=== PATIENT | female | born 1980 | race African-American/Black ===

== ENCOUNTER 2016-04-18 10:19 | Observation (INO) | payer MEDICARE, OTHER ==
[~2016-04-18] VITALS: Ht 165.1 cm; Wt 61.5 kg
[~2016-04-18 10:19] MED LIST: ASPI1TAB69 PO; DILA4TAB2 PO; FOLI1TAB4 PO; HYDR500C2 PO; [UNRECOGNIZED DRUG - CODE] PO
[2016-04-18 10:36] VITALS: BP 134/88; PULSE 92; RESP 16; TEMP 98.1; O2SAT 97
[2016-04-18] MEDS ORDERED: SODIUM CHLOR 0.9% 1000 ML INJ 1,000 ML IV ONE (11:28)
[2016-04-18] MEDS ORDERED: HYDROmorphone HCL PF 1 MG/ML VIAL IVS ONE (11:30)
[2016-04-18] MEDS ORDERED: SODIUM CHLORIDE 0.9% FLUSH 5 ML FLUSH IVF PRN ×2 (11:30→14:30)
[2016-04-18 12:05] LABS: HEMATOCRIT 21.3 % (35.0-46.0); MEAN CELL VOLUME 96.5 FL (80.0-100.0); MEAN CORPUSCULAR HEMOGLOBIN 33.6 PG (27.0-34.0); MEAN CORPUSCULAR HGB CONC 34.8 % (32.0-36.0); PLATELET COUNT 409 TH/MM3 (150-450); RED CELL DISTRIBUTION WIDTH 23.7 % (11.6-17.2); WHITE BLOOD COUNT 8.4 TH/MM3 (4.0-11.0)
[2016-04-18 12:12] LABS: HEMO FLAGS AUTO DIFF
[2016-04-18 12:15] LABS: CHLORIDE 109 MEQ/L (98-107); POTASSIUM 4.2 MEQ/L (3.5-5.1); SODIUM (NA) 144 MEQ/L (136-145)
[2016-04-18] MEDS ORDERED: diphenhydrAMINE HCL 50 MG/ML VIAL IV PUSH ONE (12:15)
[2016-04-18] MEDS ORDERED: ONDANSETRON HCL 4 MG/2 ML VIAL IV PUSH ONE (12:15)
--- NOTE | 2016-04-18 12:15 | RADHPO ---
EXAM DATE/TIME: 04/18/2016 11:36 [place] COMPARISON: CHEST SINGLE AP, March 01, 2016, 22:05. INDICATIONS : Sickle cell crisis, short of breath, chest pain, cough MEDICAL HISTORY : Sickle Cell disease. SURGICAL HISTORY : spinal ENCOUNTER: Initial ACUITY: 1 day PAIN SCORE: 9/10 LOCATION: Bilateral chest FINDINGS: Portable AP view of the chest demonstrates a normal-sized cardiac silhouette. Right chest wall Infuse -a-Port is present. Right side thoracic spine hardware is present and stable. No effusion, consolida tion, or pneumothorax is seen. Bones demonstrate no acute finding. Right ribs have a stable appearanc e. Left proximal humerus is unchanged. CONCLUSION: Stable chest x-ray. No acute cardiopulmonary abnormality is identified. Dejon Landaverde MD on April 18, 2016 at 12:13 Board Certified Radiologist. This report was verified electronically.
[2016-04-18 12:19] LABS: ANION GAP 8 MEQ/L (5-15); BICARBONATE 27.1 MEQ/L (21.0-32.0)
[2016-04-18 12:20] LABS: BLOOD UREA NITROGEN 12 MG/DL (7-18)
[2016-04-18 12:22] LABS: ALT (GPT) 38 U/L (10-53); AST (GOT) 53 U/L (15-37)
[2016-04-18 12:23] LABS: GLOMERULAR FILTRATION RATE 78 ML/MIN (>89)
[2016-04-18 12:24] LABS: TOTAL BILIRUBIN ADULT 1.6 MG/DL (0.2-1.0)
[2016-04-18 12:25] LABS: ALKALINE PHOSPHATASE 156 U/L (45-117)
[2016-04-18 12:29] LABS: CORRECTED NUCLEATED RBC 5 /100 WBC (0-0); EOSINOPHILS 4 % (0-4); NEUTROPHIL # MANUAL DIFF 5.4 TH/MM3 (1.8-7.7); POLYS (SEG NEUTROPHILS) 67 % (16-70); WBC DIFF SAMPLE 100
[2016-04-18 12:30] LABS: OVALOCYTES 1+ (NORMAL); PLATELET ESTIMATE SMEAR NORMAL (NORMAL); PLATELET MORPHOLOGY NORMAL (NORMAL); SCAN/DIFF FINAL DIFF MANUAL; SICKLE CELLS 2+ (NORMAL); TARGET CELLS 2+ (NORMAL)
[2016-04-18 12:31] LABS: KERATOCYTES 1+ (NORMAL)
[2016-04-18 12:58] VITALS: BP 128/75; PULSE 84; RESP 15; O2SAT 97; O2SAT 98
[2016-04-18] MEDS ORDERED: HYDROmorphone HCL PF 1 MG/ML VIAL IV PUSH ONE (13:00)
[2016-04-18 13:08] LABS: RETIC % 6.7 % (0.4-3.0)
[2016-04-18 13:13] LABS: REVIEW FLAG FINAL
--- NOTE | 2016-04-18 13:40 | PD ---
HPI Chief Complaint: Sickle Cell Time Seen by Provider: 11:03 Travel History International Travel<30 days: No Contact w/Intl Traveler<30days: No Traveled to known affect area: No History of Present Illness HPI This is a 35-year-old female who presents to the emergency department with sickle cell disease who has had 3 days of increasing cough, congestion, and some difficulty breathing. She says today she started to develop severe pain all over her body consistent with her sickle cell disease. She denies any fevers or chills. She has had no vomiting or diarrhea. PFSH Past Medical History Hx Anticoagulant Therapy: Yes (asa 81mg) Anemia: Yes (SICKLE CELL) Arthritis: No Asthma: No Autoimmune Disease: No Blood Disorders: Yes (SICKLE CELL) Anxiety: No Depression: No Heart Rhythm Problems: No Cancer: No Cardiovascular Problems: Yes (htn not on meds) High Cholesterol: No Chemotherapy: No Chest Pain: No Congestive Heart Failure: No COPD: No Cerebrovascular Accident: No Diabetes: No Diminished Hearing: No Deep Vein Thrombosis: Yes (HX LEFT ARM ) Endocrine: No Gastrointestinal Disorders: No GERD: No Glaucoma: No Genitourinary: No Headaches: Yes Hepatitis: No Hiatal Hernia: No Heparin Induced Thrombocytopen: No Hypertension: Yes Immune Disorder: Yes (SICKLE CELL) Implanted Vascular Access Dvce: Yes (POWER INFUSAPORT) Kidney Stones: No Musculoskeletal: Yes (SCOLIOSIS) Neurologic: No Psychiatric: No Reproductive: No Respiratory: No Immunizations Current: Yes Migraines: Yes Pneumonia: Yes Radiation Therapy: No Renal Failure: No Seizures: No Sickle Cell Disease: Yes Sleep Apnea: No Thyroid Disease: No Ulcer: No PNEUMOCCOCAL Vaccine (Year): 2008 ?: Not LMP: 5 months Menopausal: No : 5 Para: 2 Miscarriage: 3 : 0 Ovarian Cysts: Yes Past Surgical History Abdominal Surgery: Yes (CHOLECYSTECTOMY) AICD: No Arteriovenous Shunt: No Body Medical Devices: CATIA IN UPPER BACK, INFUSAPORT RIGHT CHEST: 2014 Cardiac Surgery: No Cholecystectomy: Yes Ear Surgery: No Endocrine Surgery: No Eye Surgery: No Genitourinary Surgery: No Gynecologic Surgery: No Hysterectomy: No Insulin Pump: No Joint Replacement: Yes (R HIP REPLACEMENT 2011, L HIP 2014) Neurologic Surgery: No Oral Surgery: No Pacemaker: No Thoracic Surgery: No Other Surgery: Yes (INSERTION OF INFUSA PORTX 3) Social History Alcohol Use: No Tobacco Use: No Substance Use: No Allergies-Medications (Allergen,Severity, Reaction): Coded Allergies: Toradol (Verified Allergy, Severe, Itching, 04/18/16) Morphine (Verified Allergy, Mild, Swelling, 04/18/16) Methadone (Verified Adverse Reaction, Severe, DEPRESSION, 04/18/16) Motrin (Verified Adverse Reaction, Severe, Urinary Freq (Inc/Dec), 04/18/16 ) RENAL FAILURE *MDRO Multi-Drug Resistant Organism (Verified Adverse Reaction, Unknown, ) VRE urine 2013 VRE screens negative on 11/12/14 and 12/18/14. Cleared by Infection Control. Reported Meds & Prescriptions Reported Meds & Active Scripts Active Reported Dilaudid (Hydromorphone HCl) 4 Mg Tab 4 Mg PO Q4H PRN Hydroxyurea 500 Mg Cap 500 Mg PO TID Folate (Folic Acid) 1 Mg Tab 1 Mg PO DAILY Jadenu (Deferasirox) 90 Mg Tab 1 Tab PO DAILY@1600 Aspirin 81 Mg Tabdr 81 Mg PO DAILY Review of Systems Except as stated in HPI: all other systems reviewed are Neg Physical Exam Narrative GENERAL:Well appearing, no acute distress SKIN: Warm and dry. HEAD: Atraumatic. Normocephalic. EYES: Pupils equal and round. No injection or drainage. Scleral icterus. ENT: Moist mucous membranes NECK: Trachea midline. CARDIOVASCULAR: Regular rate and rhythm. No murmur appreciated. RESPIRATORY: Clear to auscultation. Breath sounds equal bilaterally. GASTROINTESTINAL: Abdomen soft, non-tender, nondistended. MUSCULOSKELETAL: No obvious deformities. NEUROLOGICAL: Awake and alert. No obvious cranial nerve deficits. Moving all extremities. PSYCHIATRIC: Appropriate mood and affect; insight and judgment normal. Data Data Last Documented VS Vital Signs Date Time Temp Pulse Resp B/P Pulse Ox O2 Delivery O2 Flow Rate FiO2 04/18/16 13:37 15 04/18/16 12:58 84 128/75 98 Room Air 04/18/16 10:36 98.1 Orders Complete Blood Count With Diff (04/18/16 11:28) Comprehensive Metabolic Panel (04/18/16 11:28) Retic Count (04/18/16 11:28) Chest, Single Ap (04/18/16 11:28) Ecg Monitoring (04/18/16 11:28) Iv Access Insert/Monitor (04/18/16 11:28) Oximetry (04/18/16 11:28) Sodium Chloride 0.9% Flush (Ns Flush) (04/18/16 11:30) Sodium Chlor 0.9% 1000 Ml Inj (Ns 1000 M (04/18/16 11:28) Hydromorphone Pf Inj (Dilaudid Pf Inj) (04/18/16 11:30) Diphenhydramine Inj (Benadryl Inj) (04/18/16 12:15) Ondansetron Inj (Zofran Inj) (04/18/16 12:15) Hydromorphone Pf Inj (Dilaudid Pf Inj) (04/18/16 13:00) Labs Laboratory Tests Test 04/18/16 10:55 White Blood Count 8.4 TH/MM3 Corrected White Blood Count 8.0 TH/MM3 Red Blood Count 2.20 MIL/MM3 Hemoglobin 7.4 GM/DL Hematocrit 21.3 % Mean Corpuscular Volume 96.5 FL Mean Corpuscular Hemoglobin 33.6 PG Mean Corpuscular Hemoglobin 34.8 % Concent Red Cell Distribution Width 23.7 % Platelet Count 409 TH/MM3 Mean Platelet Volume 8.3 FL Neutrophils (%) (Auto) % Lymphocytes (%) (Auto) % Monocytes (%) (Auto) % Eosinophils (%) (Auto) % Basophils (%) (Auto) % Neutrophils # (Auto) TH/MM3 Lymphocytes # (Auto) TH/MM3 Monocytes # (Auto) TH/MM3 Eosinophils # (Auto) TH/MM3 Basophils # (Auto) TH/MM3 CBC Comment AUTO DIFF Differential Total Cells 100 Counted Neutrophils % (Manual) 67 % Lymphocytes % 26 % Monocytes % 3 % Eosinophils % 4 % Neutrophils # (Manual) 5.4 TH/MM3 Nucleated Red Blood Cells 5 /100 WBC Differential Comment FINAL DIFF MANUAL Platelet Estimate NORMAL Platelet Morphology Comment NORMAL Sickle Cells 2+ Target Cells 2+ Ovalocytes 1+ Keratocytes 1+ Reticulocyte Count 6.7 % Absolute Reticulocyte Count 138.2 MIL/L Sodium Level 144 MEQ/L Potassium Level 4.2 MEQ/L Chloride Level 109 MEQ/L Carbon Dioxide Level 27.1 MEQ/L Anion Gap 8 MEQ/L Blood Urea Nitrogen 12 MG/DL Creatinine 0.99 MG/DL Estimat Glomerular Filtration 78 ML/MIN Rate Random Glucose 86 MG/DL Calcium Level 9.0 MG/DL Total Bilirubin 1.6 MG/DL Aspartate Amino Transf 53 U/L (AST/SGOT) Alanine Aminotransferase 38 U/L (ALT/SGPT) Alkaline Phosphatase 156 U/L Total Protein 8.4 GM/DL Albumin 3.5 GM/DL MDM Medical Decision Making Medical Screen Exam Complete: Yes Emergency Medical Condition: Yes Interpretation(s) Afebrile, mild tachycardia, normotensive No leukocytosis Hemoglobin is 7.4 Total bilirubin is 1.6 Chest x-ray: No acute process Differential Diagnosis Vaso-occlusive crisis, acute chest syndrome, pulmonary embolism Narrative Course This is a 35-year-old female who presents to the emergency department with pain consistent with a vaso-occlusive crisis as well as a preceding illness with some cough. She was placed on a monitor and an IV was established. Pulse ox is normal. Chest x-rays reassuring with no evidence of infiltrate. Labs are all reassuring. Patient was treated with IV hydration and pain medication. Patient continues to have pain despite multiple doses of IV Dilaudid. Patient will be placed in observation for continued pain control. Diagnosis Primary Impression: Vaso-occlusive sickle cell crisis Admitting Information Admitting Physician Requests: Observation Patient Instructions: General Instructions Additional Instructions: If you develop severe chest pain, shortness of breath, sweating, lightheadedness , dizziness or difficulty breathing return to the emergency department immediately. Followup with your primary care physician in 2-3 days if your symptoms are not resolved. Med/Other Pt SpecificInfo: No Change to Meds Disposition: 01 DISCHARGE HOME Condition: Stable Leonie Solorzano MD Apr 18, 2016 13:39
[2016-04-18] MEDS ORDERED: ACETAMINOPHEN 325 MG TAB PO PRN (14:30)
[2016-04-18] MEDS: HYDROmorphone HCL PF 1 MG/ML VIAL IV PRN ×2 (15:35→20:28)
[2016-04-18] MEDS: ONDANSETRON HCL 4 MG/2 ML VIAL IV PRN ×2 (15:36→20:25)
--- NOTE | 2016-04-18 19:45 | HHI.HP ---
[facility] Service [facility] Primary Care Physician Lilo Shea MD Admission Diagnosis vasoocclusive crisis Diagnoses: Travel History International Travel<30 Days: No Contact w/Intl Traveler <30 Da: No Traveled to Known Affected Are: No History of Present Illness This is a very pleasant 35-year-old Afro-[place] female with past medical history of sickle cell disease, with frequent hospitalizations. She states over the past 2 days she had vomiting however that has resolved today. However this morning she started to have typical sickle cell pain in her chest back and legs. She came to the ER. She has not had any fever or chills or shortness of breath. Chest x-ray was clear. The ER physician requested observation. The patient states she currently feels better with 5 out of 10 pain. Past Family Social History Allergies: Coded Allergies: Toradol (Verified Allergy, Severe, Itching, 04/18/16) Morphine (Verified Allergy, Mild, Swelling, 04/18/16) Methadone (Verified Adverse Reaction, Severe, DEPRESSION, 04/18/16) Motrin (Verified Adverse Reaction, Severe, Urinary Freq (Inc/Dec), 04/18/16 ) RENAL FAILURE *MDRO Multi-Drug Resistant Organism (Verified Adverse Reaction, Unknown, ) VRE urine 2014 VRE screens negative on 11/12/14 and 12/18/14. Cleared by Infection Control. Physical Exam Vital Signs Vital Signs Date Time Temp Pulse Resp B/P Pulse Ox O2 Delivery O2 Flow Rate FiO2 04/18/16 16:05 20 04/18/16 13:37 15 04/18/16 12:58 84 15 128/75 98 Room Air 04/18/16 12:58 97 Room Air 04/18/16 12:32 15 04/18/16 11:04 15 04/18/16 10:36 98.1 92 16 134/88 97 Physical Exam GENERAL: Well-nourished, well-developed patient. SKIN: Warm and dry. HEAD: Normocephalic. EYES: No scleral icterus. No injection or drainage. NECK: Supple, trachea midline. No JVD or lymphadenopathy. CARDIOVASCULAR: Regular rate and rhythm without murmurs, gallops, or rubs. RESPIRATORY: Breath sounds equal bilaterally. No accessory muscle use. GASTROINTESTINAL: Abdomen soft, non-tender, nondistended. EXTREMITIES: No cyanosis, or edema. NEUROLOGICAL: Awake, alert, and oriented x 3. Non-focal. Laboratory Laboratory Tests Test 04/18/16 10:55 White Blood Count 8.4 Corrected White Blood Count 8.0 Red Blood Count 2.20 Hemoglobin 7.4 Hematocrit 21.3 Mean Corpuscular Volume 96.5 Mean Corpuscular Hemoglobin 33.6 Mean Corpuscular Hemoglobin 34.8 Concent Red Cell Distribution Width 23.7 Platelet Count 409 Mean Platelet Volume 8.3 Neutrophils (%) (Auto) Lymphocytes (%) (Auto) Monocytes (%) (Auto) Eosinophils (%) (Auto) Basophils (%) (Auto) Neutrophils # (Auto) Lymphocytes # (Auto) Monocytes # (Auto) Eosinophils # (Auto) Basophils # (Auto) CBC Comment AUTO DIFF Differential Total Cells 100 Counted Neutrophils % (Manual) 67 Lymphocytes % 26 Monocytes % 3 Eosinophils % 4 Neutrophils # (Manual) 5.4 Nucleated Red Blood Cells 5 Differential Comment FINAL DIFF MANUAL Platelet Estimate NORMAL Platelet Morphology Comment NORMAL Sickle Cells 2+ Target Cells 2+ Ovalocytes 1+ Keratocytes 1+ Reticulocyte Count 6.7 Absolute Reticulocyte Count 138.2 Sodium Level 144 Potassium Level 4.2 Chloride Level 109 Carbon Dioxide Level 27.1 Anion Gap 8 Blood Urea Nitrogen 12 Creatinine 0.99 Estimat Glomerular Filtration 78 Rate Random Glucose 86 Calcium Level 9.0 Total Bilirubin 1.6 Aspartate Amino Transf 53 (AST/SGOT) Alanine Aminotransferase 38 (ALT/SGPT) Alkaline Phosphatase 156 Total Protein 8.4 Albumin 3.5 Result Diagram: 04/18/16 1055 04/18/16 1055 Assessment and Plan Assessment and Plan -Sickle cell vaso-occlusive crisis. Appears to be mild. May have been precipitated by the vomiting which is now resolved. We'll observe her overnight. Pain control. Reassess for outpatient management in the morning. Chelsey Sheehan MD Apr 18, 2016 19:45
[2016-04-18] MEDS: diphenhydrAMINE HCL 25 MG CAP PO PRN (20:24)
[2016-04-18] MEDS ORDERED: Infusaport/Implanted VAD PRN NS Lock Flush IVF (21:00)
[2016-04-18 21:22] VITALS: BP 125/82; PULSE 82; RESP 20; TEMP 96.8; O2SAT 100
[2016-04-19] VITALS (7 sets, daily range): BP systolic 100–139; BP diastolic 59–88; PULSE 16–93; RESP 16–18; TEMP 96.2–98.8; O2SAT 92–96
[2016-04-19] MEDS: SODIUM CHLORIDE 0.9% FLUSH 5 ML FLUSH IVF SCH ×3 (01:07→19:52)
[2016-04-19] MEDS: HYDROmorphone HCL PF 1 MG/ML VIAL IV PRN ×2 (01:07→06:19)
[2016-04-19] MEDS: diphenhydrAMINE HCL 25 MG CAP PO PRN ×3 (06:18→15:47)
[2016-04-19] MEDS: ONDANSETRON HCL 4 MG/2 ML VIAL IV PRN ×2 (06:21→12:07)
[2016-04-19 06:54] LABS: MEAN CELL VOLUME 97.9 FL (80.0-100.0); MEAN CORPUSCULAR HEMOGLOBIN 34.4 PG (27.0-34.0); MEAN CORPUSCULAR HGB CONC 35.1 % (32.0-36.0); PLATELET COUNT 347 TH/MM3 (150-450); RED BLOOD COUNT 1.91 MIL/MM3 (4.00-5.30); RED CELL DISTRIBUTION WIDTH 24.1 % (11.6-17.2); WHITE BLOOD COUNT 8.5 TH/MM3 (4.0-11.0)
[2016-04-19 06:56] LABS: HEMO FLAGS AUTO DIFF
[2016-04-19 06:58] LABS: HEMATOCRIT 18.7 % (35.0-46.0)
[2016-04-19 07:26] LABS: CORRECTED NUCLEATED RBC 6 /100 WBC (0-0); EOSINOPHILS 5 % (0-4); NEUTROPHIL # MANUAL DIFF 2.6 TH/MM3 (1.8-7.7); POLYS (SEG NEUTROPHILS) 32 % (16-70); WBC DIFF SAMPLE 100
[2016-04-19 07:27] LABS: HOWELL-JOLLY BODIES PRESENT (NONE SEEN); KERATOCYTES OCC (NORMAL); OVALOCYTES 1+ (NORMAL); PLATELET ESTIMATE SMEAR NORMAL (NORMAL); SICKLE CELLS 2+ (NORMAL); TARGET CELLS 2+ (NORMAL)
[2016-04-19 07:28] LABS: PLATELET MORPHOLOGY NORMAL (NORMAL); SCAN/DIFF FINAL DIFF MANUAL
[2016-04-19] MEDS ORDERED: SODIUM CHLOR 0.9% 250 ML INJ 250 ML IV ONE (07:30)
[2016-04-19] MEDS ORDERED: ACETAMINOPHEN 325 MG TAB PO PRN (07:30)
[2016-04-19] MEDS ORDERED: diphenhydrAMINE HCL 25 MG CAP PO PRN (07:30)
[2016-04-19] MEDS ORDERED: MULTIVITAMIN TAB PO SCH (09:00)
[2016-04-19] MEDS ORDERED: ASPIRIN EC 81 MG TABEC PO SCH (09:00)
[2016-04-19] MEDS ORDERED: FOLIC ACID 1 MG TAB PO SCH ×2 (09:00)
[2016-04-19] MEDS: HYDROXYUREA 500 MG CAP PO SCH ×3 (09:31→17:16)
--- NOTE | 2016-04-19 11:53 | HHI.PR ---
Subjective Remarks Patient seen and examined today with Dr. Sheehan. Patient states that she is doing much better. Nursing staff indicates that her port is able to flash but not able to draw back. Cathflow administered. Patient is eating well. Back on by mouth medications. Objective Vitals Vital Signs Date Time Temp Pulse Resp B/P Pulse Ox O2 Delivery O2 Flow Rate FiO2 04/19/16 08:00 97.0 71 18 128/88 94 04/19/16 04:00 04/19/16 00:00 96.2 81 16 100/59 04/18/16 21:22 96.8 82 20 125/82 100 04/18/16 16:05 20 04/18/16 13:37 15 04/18/16 12:58 84 15 128/75 98 Room Air 04/18/16 12:58 97 Room Air 04/18/16 12:32 15 Result Diagram: 04/19/16 0610 04/18/16 1055 Objective Remarks GENERAL: Well-developed, well-nourished, in no acute distress. alert and orientated HEENT: Head is normocephalic without any lesions or masses noted. Facial features are symmetric. Eyes: Extraocular muscles are intact. Conjunctivae were clear. NECK: Supple without any masses. Trachea midline no deviation. No JVD, CARDIAC: Regular rhythm, regular rate. S1/S2 are heard. No murmurs gallops or rubs. Right anterior chest Mediport noted LUNGS: Clear to auscultation bilaterally. No wheeze, rhonchi or rales. No use of accessory muscles on inspiration or expiration. ABDOMEN: Soft, nontender. Nondistended. Bowel sounds heard in all 4 quadrants. No organomegaly or masses. Negative rebound, negative guarding EXTREMITIES: No edema, pulses are equal bilaterally. No cyanosis or clubbing NEUROLOGY: Mood and affect appear appropriate. Cranial nerves II through XII grossly intact. Moving all extremities, speech is clear Urinary Catheter: No Vascular Central Line Catheter: Yes Assessment to: Continue Side: Right A/P Assessment and Plan Sickle cell vaso-occlusive crisis. Likely precipitated by the vomiting which is now resolved. 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 Sheehan on 04/19/16 at 1300. The documentation accurately reflects the work and decisions performed face-to- face by Dr. Sheehan on 04/19/16 at 1300. Discharge Planning Discharge home in stable condition after transfusion complete Activity: Ad sapna. Diet: Healthy heart diet Medications per medication reconciliation Follow-up primary medical doctor in one week. Sathya Conklin Apr 19, 2016 11:53
--- NOTE | 2016-04-19 11:54 | HHI.DCPOC ---
Discharge Care Plan Diagnosis: (1) Vaso-occlusive sickle cell crisis Goals to Promote Your Health * To prevent worsening of your condition and complications * To maintain your health at the optimal level Directions to Meet Your Goals Take your medications as prescribed Follow your dietary instruction Follow activity as directed Keep your appointments as scheduled Take your immunizations and boosters as scheduled If your symptoms worsen call your PCP, if no PCP go to Urgent Care Center or Emergency Room Smoking is Dangerous to Your Health. Avoid second hand smoke Call the 24-hour hour crisis hotline for domestic abuse at Sathya Conklin Apr 19, 2016 11:54
[2016-04-19] MEDS ORDERED: ALTEPLASE RECOMBINANT 2 MG VIAL INTRACATH ONE (12:00)
[2016-04-19] MEDS: HYDROmorphone HCL 4 MG TAB PO PRN ×2 (12:06→17:15)
[2016-04-19] MEDS ORDERED: JADENU PO SCH (16:00)
[2016-04-19 21:06] LABS: HEMATOCRIT 25.3 % (35.0-46.0)
[2016-04-19 21:45] LABS: REVIEW FLAG FINAL
== END 2016-04-19 21:30 | disposition home or self-care (01) ==
LOC: PHED 10:19 → PHEDA 13:45 → PH3B 14:54
PROVIDERS: ADMIT Family Medicine; ATTEND Family Medicine
DX: D57.00 Hb-SS disease with crisis, unspecified (principal); I10 Essential (primary) hypertension; M41.9 Scoliosis, unspecified
CPT/HCPCS: 36430; 71010; 80053; 85007; 85014; 85018; 85027; 85044; 85660; 86850; 86900; 86901; 86920; 86922; 94150; 96361; 96374; 96375; 96376; 99285; G0378; J1170; J1200; J1642; J2405; J2997; J7030; J7050; P9016

== ENCOUNTER 2016-05-09 15:05 | Emergency (ER) | payer MEDICARE, OTHER ==
[~2016-05-09] VITALS: Ht 165.1 cm; Wt 63.0 kg
[2016-05-09 15:10] VITALS: BP 113/88; PULSE 113; RESP 16; TEMP 99.4; O2SAT 99
[2016-05-09 15:20] VITALS: RESP 16; O2SAT 99
[2016-05-09] MEDS ORDERED: SODIUM CHLOR 0.9% 1000 ML INJ 1,000 ML IV ONE (15:22)
--- NOTE | 2016-05-09 15:28 | PD ---
HPI Chief Complaint: Sickle Cell Time Seen by Provider: 15:22 Travel History International Travel<30 days: No Contact w/Intl Traveler<30days: No Traveled to known affect area: No History of Present Illness HPI Patient presents for acute sickle cell crisis. Last crisis approximately 3 weeks ago. Reports a generalized malaise/achiness. Denies nausea vomiting diarrhea or fever. She does report a recent chest cold. Denies . Denies any new chest pain shortness of breath urinary or bowel symptoms. Symptom onset this morning. PFSH Past Medical History Hx Anticoagulant Therapy: Yes (asa 81mg) Anemia: Yes (SICKLE CELL) Arthritis: No Asthma: No Autoimmune Disease: No Blood Disorders: Yes (SICKLE CELL) Anxiety: No Depression: No Heart Rhythm Problems: No Cancer: No Cardiovascular Problems: Yes (htn not on meds) High Cholesterol: No Chemotherapy: No Chest Pain: No Congestive Heart Failure: No COPD: No Cerebrovascular Accident: No Diabetes: No Diminished Hearing: No Deep Vein Thrombosis: Yes (HX LEFT ARM ) Endocrine: No Gastrointestinal Disorders: No GERD: No Glaucoma: No Genitourinary: No Headaches: Yes Hepatitis: No Hiatal Hernia: No Heparin Induced Thrombocytopen: No Hypertension: Yes Immune Disorder: Yes (SICKLE CELL) Implanted Vascular Access Dvce: Yes (POWER INFUSAPORT) Kidney Stones: No Musculoskeletal: Yes (SCOLIOSIS) Neurologic: No Psychiatric: No Reproductive: No Respiratory: No Immunizations Current: Yes Migraines: Yes Pneumonia: Yes Radiation Therapy: No Renal Failure: No Seizures: No Sickle Cell Disease: Yes Sleep Apnea: No Thyroid Disease: No Ulcer: No PNEUMOCCOCAL Vaccine (Year): 2008 ?: Unknown LMP: NONE FOR 5 MONTHS Menopausal: No : 5 Para: 2 Miscarriage: 3 : 0 Ovarian Cysts: Yes Past Surgical History Abdominal Surgery: Yes (CHOLECYSTECTOMY) AICD: No Arteriovenous Shunt: No Body Medical Devices: CATIA IN UPPER BACK, INFUSAPORT RIGHT CHEST: 2014 Cardiac Surgery: No Cholecystectomy: Yes Ear Surgery: No Endocrine Surgery: No Eye Surgery: No Genitourinary Surgery: No Gynecologic Surgery: No Hysterectomy: No Insulin Pump: No Joint Replacement: Yes (R HIP REPLACEMENT 2011, L HIP 2014) Neurologic Surgery: No Oral Surgery: No Pacemaker: No Thoracic Surgery: No Other Surgery: Yes (INSERTION OF INFUSA PORTX 3) Social History Alcohol Use: No Tobacco Use: No Substance Use: No Allergies-Medications (Allergen,Severity, Reaction): Coded Allergies: Toradol (Verified Allergy, Severe, Itching, 05/09/16) Morphine (Verified Allergy, Mild, Swelling, 05/09/16) Methadone (Verified Adverse Reaction, Severe, DEPRESSION, 05/09/16) Motrin (Verified Adverse Reaction, Severe, Urinary Freq (Inc/Dec), 05/09/16 ) RENAL FAILURE *MDRO Multi-Drug Resistant Organism (Verified Adverse Reaction, Unknown, ) VRE urine 2013 VRE screens NEGATIVE - 11/12/14 and 12/18/14 CLEARED PER INFECTION CONTROL Reported Meds & Prescriptions Reported Meds & Active Scripts Active Reported Dilaudid (Hydromorphone HCl) 4 Mg Tab 4 Mg PO Q4H PRN Hydroxyurea 500 Mg Cap 500 Mg PO TID Folate (Folic Acid) 1 Mg Tab 1 Mg PO DAILY Jadenu (Deferasirox) 90 Mg Tab 1 Tab PO DAILY@1600 Aspirin 81 Mg Tabdr 81 Mg PO DAILY Review of Systems General / Constitutional: No: Fever Eyes: No: Visual changes HENT: No: Headaches Cardiovascular: No: Chest Pain or Discomfort Respiratory: No: Shortness of Breath Gastrointestinal: No: Abdominal Pain Genitourinary: No: Dysuria Musculoskeletal: No: Pain Skin: No Rash Neurologic: No: Weakness Psychiatric: No: Depression Endocrine: No: Polydipsia Hematologic/Lymphatic: No: Easy Bruising Physical Exam Narrative GENERAL: Well-nourished, well-developed patient. SKIN: Warm and dry. HEAD: Normocephalic. EYES: No scleral icterus. No injection or drainage. NECK: Supple, trachea midline. No JVD or lymphadenopathy. CARDIOVASCULAR: Regular rate and rhythm without murmurs, gallops, or rubs. RESPIRATORY: Breath sounds equal bilaterally. No accessory muscle use. GASTROINTESTINAL: Abdomen soft, non-tender, nondistended. MUSCULOSKELETAL: No cyanosis, or edema. BACK: Nontender without obvious deformity. No CVA tenderness. Data Data Last Documented VS Vital Signs Date Time Temp Pulse Resp B/P Pulse Ox O2 Delivery O2 Flow Rate FiO2 05/09/16 15:10 99.4 113 16 113/88 99 Orders Complete Blood Count With Diff (05/09/16 15:22) Comprehensive Metabolic Panel (05/09/16 15:22) Retic Count (05/09/16 15:22) Urinalysis - C+S If Indicated (05/09/16 15:22) Ecg Monitoring (05/09/16 15:22) Iv Access Insert/Monitor (05/09/16 15:22) Oximetry (05/09/16 15:22) Hydromorphone Pf Inj (Dilaudid Pf Inj) (05/09/16 15:30) Ondansetron Inj (Zofran Inj) (05/09/16 15:30) Sodium Chloride 0.9% Flush (Ns Flush) (05/09/16 15:30) Sodium Chlor 0.9% 1000 Ml Inj (Ns 1000 M (05/09/16 15:22) Diphenhydramine Inj (Benadryl Inj) (05/09/16 15:30) MDM Medical Decision Making Medical Screen Exam Complete: Yes Emergency Medical Condition: Yes Differential Diagnosis Sickle cell crisis, viral syndrome, malingering Narrative Course Assessment and plan discussed with patient and significant other at bedside. Physician Communication Physician Communication Case discussed and care transferred to Eagle Bowie MD May 09, 2016 15:28
[2016-05-09] MEDS ORDERED: HYDROmorphone HCL PF 2 MG/ML VIAL IVS ONE (15:30)
[2016-05-09] MEDS ORDERED: diphenhydrAMINE HCL 50 MG/ML VIAL IV ONE (15:30)
[2016-05-09] MEDS ORDERED: ONDANSETRON HCL 4 MG/2 ML VIAL IVP ONE (15:30)
[2016-05-09] MEDS: SODIUM CHLORIDE 0.9% FLUSH 5 ML FLUSH IVF PRN ×2 (15:40→18:35)
[2016-05-09 15:54] LABS: AUTOMATED NEUTROPHIL # 3.7 TH/MM3 (1.8-7.7); BASOPHIL # 0.1 TH/MM3 (0-0.2); BASOPHIL % 0.9 % (0.0-2.0); EOSINOPHIL # 0.5 TH/MM3 (0-0.4); EOSINOPHIL % 5.6 % (0.0-4.0); HEMATOCRIT 24.6 % (35.0-46.0); LYMPH % 40.4 % (9.0-44.0); LYMPHOCYTE # 3.6 TH/MM3 (1.0-4.8); MEAN CELL VOLUME 101.2 FL (80.0-100.0); MEAN CORPUSCULAR HEMOGLOBIN 34.5 PG (27.0-34.0); MONO % 10.2 % (0.0-8.0); NEUT % 42.9 % (16.0-70.0); PLATELET COUNT 280 TH/MM3 (150-450); RED BLOOD COUNT 2.43 MIL/MM3 (4.00-5.30); WHITE BLOOD COUNT 8.8 TH/MM3 (4.0-11.0)
[2016-05-09 15:56] LABS: HEMO FLAGS AUTO DIFF
[2016-05-09 16:07] LABS: CHLORIDE 109 MEQ/L (98-107); SODIUM (NA) 144 MEQ/L (136-145)
[2016-05-09 16:10] LABS: ANION GAP 8 MEQ/L (5-15); BICARBONATE 26.8 MEQ/L (21.0-32.0)
[2016-05-09 16:11] LABS: BLOOD UREA NITROGEN 10 MG/DL (7-18)
[2016-05-09 16:13] LABS: ALT (GPT) 29 U/L (10-53); AST (GOT) 39 U/L (15-37)
[2016-05-09 16:14] LABS: GLOMERULAR FILTRATION RATE 77 ML/MIN (>89)
[2016-05-09 16:15] VITALS: BP 111/65; PULSE 103; RESP 16; O2SAT 93
[2016-05-09 16:16] LABS: ALKALINE PHOSPHATASE 142 U/L (45-117)
[2016-05-09 16:21] LABS: KERATOCYTES OCC (NORMAL); OVALOCYTES 1+ (NORMAL); SCAN/DIFF AUTO DIFF CONFIRMED; SICKLE CELLS 1+ (NORMAL); TARGET CELLS 2+ (NORMAL)
[2016-05-09 16:45] VITALS: RESP 16; O2SAT 96
[2016-05-09 16:47] LABS: BLOOD, URINE TRACE (NEG); GLUCOSE,URINE NEG (NEG); KETONE, URINE NEG (NEG); NITRITE,URINE NEG (NEG)
[2016-05-09 16:51] LABS: METHOD OF COLLECTION CLEAN CATCH; URINE COLOR YELLOW (YELLW/STRAW); WBC, URINE 0-2 /hpf (0-5)
[2016-05-09 16:52] LABS: BACTERIA, URINE FEW /hpf; COMMENT (UR) CULT NOT INDICATED; CULTURE IF INDICATED CULT NOT INDICATED; RBC, URINE 0-3 /hpf (0-3); SQUAMOUS EPITHELIAL CELL URINE > 8 /hpf (0-5)
[2016-05-09 17:05] LABS: REVIEW FLAG FINAL
[2016-05-09 17:35] VITALS: BP 110/68; PULSE 85; RESP 16; O2SAT 94
--- NOTE | 2016-05-09 17:45 | PD ---
Data Data Last Documented VS Vital Signs Date Time Temp Pulse Resp B/P Pulse Ox O2 Delivery O2 Flow Rate FiO2 05/09/16 17:07 102 16 94 Nasal Cannula 2 05/09/16 16:15 111/65 05/09/16 15:10 99.4 Orders Complete Blood Count With Diff (05/09/16 15:22) Comprehensive Metabolic Panel (05/09/16 15:22) Retic Count (05/09/16 15:22) Urinalysis - C+S If Indicated (05/09/16 15:22) Ecg Monitoring (05/09/16 15:22) Iv Access Insert/Monitor (05/09/16 15:22) Oximetry (05/09/16 15:22) Hydromorphone Pf Inj (Dilaudid Pf Inj) (05/09/16 15:30) Ondansetron Inj (Zofran Inj) (05/09/16 15:30) Sodium Chloride 0.9% Flush (Ns Flush) (05/09/16 15:30) Sodium Chlor 0.9% 1000 Ml Inj (Ns 1000 M (05/09/16 15:22) Diphenhydramine Inj (Benadryl Inj) (05/09/16 15:30) Labs Laboratory Tests Test 05/09/16 05/09/16 15:25 16:35 White Blood Count 8.8 TH/MM3 Red Blood Count 2.43 MIL/MM3 Hemoglobin 8.4 GM/DL Hematocrit 24.6 % Mean Corpuscular Volume 101.2 FL Mean Corpuscular Hemoglobin 34.5 PG Mean Corpuscular Hemoglobin 34.0 % Concent Red Cell Distribution Width 21.0 % Platelet Count 280 TH/MM3 Mean Platelet Volume 8.5 FL Neutrophils (%) (Auto) 42.9 % Lymphocytes (%) (Auto) 40.4 % Monocytes (%) (Auto) 10.2 % Eosinophils (%) (Auto) 5.6 % Basophils (%) (Auto) 0.9 % Neutrophils # (Auto) 3.7 TH/MM3 Lymphocytes # (Auto) 3.6 TH/MM3 Monocytes # (Auto) 0.9 TH/MM3 Eosinophils # (Auto) 0.5 TH/MM3 Basophils # (Auto) 0.1 TH/MM3 CBC Comment AUTO DIFF Differential Comment AUTO DIFF CONFIRMED Sickle Cells 1+ Target Cells 2+ Ovalocytes 1+ Acanthocytes Keratocytes OCC Reticulocyte Count 3.0 % Absolute Reticulocyte Count 69.1 MIL/L Sodium Level 144 MEQ/L Potassium Level 4.0 MEQ/L Chloride Level 109 MEQ/L Carbon Dioxide Level 26.8 MEQ/L Anion Gap 8 MEQ/L Blood Urea Nitrogen 10 MG/DL Creatinine 1.00 MG/DL Estimat Glomerular Filtration 77 ML/MIN Rate Random Glucose 98 MG/DL Calcium Level 8.3 MG/DL Total Bilirubin 1.0 MG/DL Aspartate Amino Transf 39 U/L (AST/SGOT) Alanine Aminotransferase 29 U/L (ALT/SGPT) Alkaline Phosphatase 142 U/L Total Protein 8.1 GM/DL Albumin 3.6 GM/DL Urine Collection Type CLEAN CATCH Urine Color YELLOW Urine Turbidity CLEAR Urine pH 6.0 Urine Specific [place] 1.011 Urine Protein TRACE mg/dL Urine Glucose (UA) NEG mg/dL Urine Ketones NEG mg/dL Urine Occult Blood TRACE Urine Nitrite NEG Urine Bilirubin NEG Urine Leukocyte Esterase TRACE Urine RBC 0-3 /hpf Urine WBC 0-2 /hpf Urine Squamous Epithelial > 8 /hpf Cells Urine Bacteria FEW /hpf Microscopic Urinalysis Comment CULT NOT INDICATED Urine Collection Time 16:35 MDM Supervised Visit with RADHA: No Narrative Course The patient was signed out to me at 4 PM. She is here for sickle cell crisis. This is a common problem for her. Her H&H is stable for her. Diagnosis Primary Impression: Vaso-occlusive sickle cell crisis Additional Instruction: See your primary care provider for ongoing pain management. Disposition: 01 DISCHARGE HOME Condition: Stable Jennifer Sandoval MD May 09, 2016 17:45
== END 2016-05-09 18:48 | disposition home or self-care (01) ==
LOC: PHED 15:05
DX: D57.00 Hb-SS disease with crisis, unspecified (principal); I10 Essential (primary) hypertension; Z79.82 Long term (current) use of aspirin; Z86.2 Personal history of diseases of the blood and blood-forming organs and certain disorders involving the immune mechanism; Z86.718 Personal history of other venous thrombosis and embolism; Z87.39 Personal history of other diseases of the musculoskeletal system and connective tissue; Z86.69 Personal history of other diseases of the nervous system and sense organs; Z87.01 Personal history of pneumonia (recurrent)
CPT/HCPCS: 80053; 81001; 85025; 85044; 96361; 96374; 96375; 99284; J1170; J1200; J1642; J2405; J7030

== ENCOUNTER 2016-05-26 09:07 | Emergency (ER) | payer MEDICARE, OTHER ==
[~2016-05-26] VITALS: Ht 165.1 cm; Wt 67.0 kg
[2016-05-26 09:16] VITALS: BP 119/85; PULSE 98; RESP 16; TEMP 98.7; O2SAT 96
[2016-05-26] MEDS ORDERED: SODIUM CHLOR 0.9% 1000 ML INJ 1,000 ML IV ONE ×2 (09:31→11:15)
--- NOTE | 2016-05-26 09:36 | PD ---
HPI Chief Complaint: Sickle Cell Time Seen by Provider: 09:27 Travel History International Travel<30 days: No Contact w/Intl Traveler<30days: No Traveled to known affect area: No History of Present Illness HPI The patient is a 35-year-old Carolyn female who presents emergency department for sickle cell pain crisis. The patient is unsure if she has a history of sickle cell SS or SC, but is followed by her servomechanism assembler, Dr. Shea. The patient was seen by Dr. Shea yesterday and had a treatment for her sickle cell vaso-occlusive crisis with pain medications and IV fluids. The patient notes a 2 day history of chest pain, back pain, and arm pain, consistent with her typical sickle cell pain crisis. The patient denies any fever or shortness of breath. The patient does have a history of elevated iron levels and is currently being treated by her servomechanism assembler. The patient's last menstrual cycle was 6 months ago, she denies . The patient's symptoms are moderate, exacerbated by history of sickle cell disease, and alleviated in the past with IV fluids and pain medications. PFSH Past Medical History Hx Anticoagulant Therapy: Yes (asa 81mg) Anemia: Yes (SICKLE CELL) Arthritis: No Asthma: No Autoimmune Disease: No Blood Disorders: Yes (SICKLE CELL) Anxiety: No Depression: No Heart Rhythm Problems: No Cancer: No Cardiovascular Problems: Yes (htn not on meds) High Cholesterol: No Chemotherapy: No Chest Pain: No Congestive Heart Failure: No COPD: No Cerebrovascular Accident: No Diabetes: No Diminished Hearing: No Deep Vein Thrombosis: Yes (HX LEFT ARM ) Endocrine: No Gastrointestinal Disorders: No GERD: No Glaucoma: No Genitourinary: No Headaches: Yes Hepatitis: No Hiatal Hernia: No Heparin Induced Thrombocytopen: No Hypertension: Yes Immune Disorder: Yes (SICKLE CELL) Implanted Vascular Access Dvce: Yes (POWER INFUSAPORT) Kidney Stones: No Musculoskeletal: Yes (SCOLIOSIS) Neurologic: No Psychiatric: No Reproductive: No Respiratory: No Immunizations Current: Yes Migraines: Yes Pneumonia: Yes Radiation Therapy: No Renal Failure: No Seizures: No Sickle Cell Disease: Yes Sleep Apnea: No Thyroid Disease: No Ulcer: No PNEUMOCCOCAL Vaccine (Year): 2008 ?: Not LMP: 6 MONTHS AGO Menopausal: No : 5 Para: 2 Miscarriage: 3 : 0 Ovarian Cysts: Yes Past Surgical History Abdominal Surgery: Yes (CHOLECYSTECTOMY) AICD: No Arteriovenous Shunt: No Body Medical Devices: CATIA IN UPPER BACK, INFUSAPORT RIGHT CHEST: 2014 Cardiac Surgery: No Cholecystectomy: Yes Ear Surgery: No Endocrine Surgery: No Eye Surgery: No Genitourinary Surgery: No Gynecologic Surgery: No Hysterectomy: No Insulin Pump: No Joint Replacement: Yes (R HIP REPLACEMENT 2011, L HIP 2014) Neurologic Surgery: No Oral Surgery: No Pacemaker: No Thoracic Surgery: No Other Surgery: Yes (INSERTION OF INFUSA PORTX 3) Social History Alcohol Use: Yes (occass. wine) Tobacco Use: No Substance Use: No Allergies-Medications (Allergen,Severity, Reaction): Coded Allergies: Toradol (Verified Allergy, Severe, Itching, 05/26/16) Morphine (Verified Allergy, Mild, Swelling, 05/26/16) Methadone (Verified Adverse Reaction, Severe, DEPRESSION, 05/26/16) Motrin (Verified Adverse Reaction, Severe, Urinary Freq (Inc/Dec), 05/26/16 ) RENAL FAILURE *MDRO Multi-Drug Resistant Organism (Verified Adverse Reaction, Unknown, ) VRE urine 2013 VRE screens NEGATIVE - 11/12/14 and 12/18/14 CLEARED PER INFECTION CONTROL Reported Meds & Prescriptions Reported Meds & Active Scripts Active Reported Dilaudid (Hydromorphone HCl) 4 Mg Tab 4 Mg PO Q4H PRN Hydroxyurea 500 Mg Cap 500 Mg PO TID Folate (Folic Acid) 1 Mg Tab 1 Mg PO DAILY Jadenu (Deferasirox) 90 Mg Tab 1 Tab PO DAILY@1600 Aspirin 81 Mg Tabdr 81 Mg PO DAILY Review of Systems General / Constitutional: No: Fever Cardiovascular: Positive: Chest Pain or Discomfort Respiratory: No: Cough, Shortness of Breath Gastrointestinal: No: Nausea, Vomiting, Abdominal Pain Musculoskeletal: Positive: Pain Hematologic/Lymphatic: Positive: Other (as noted in the history of present illness) Physical Exam Narrative GENERAL: Awake, alert, nontoxic-appearing 35-year-old female who appears her stated age and is in no acute respiratory distress. SKIN: Warm and dry. HEAD: Atraumatic. Normocephalic. EYES: Pupils equal and round. Minimal icterus noted. ENT: No nasal bleeding or discharge. Mucous membranes pink and moist. NECK: Trachea midline. No JVD. CARDIOVASCULAR: Regular, tachycardic with a heart rate of [address]. [address] right chest wall. RESPIRATORY: No accessory muscle use. Clear to auscultation. Breath sounds equal bilaterally. GASTROINTESTINAL: Abdomen soft, non-tender, nondistended. No rebound tenderness. MUSCULOSKELETAL: No obvious deformities. No clubbing. No cyanosis. No edema. NEUROLOGICAL: Awake and alert. No obvious cranial nerve deficits. Motor grossly within normal limits. Normal speech. PSYCHIATRIC: Appropriate mood and affect; insight and judgment normal. Data Data Last Documented VS Vital Signs Date Time Temp Pulse Resp B/P Pulse Ox O2 Delivery O2 Flow Rate FiO2 05/26/16 11:05 Room Air 05/26/16 10:50 95 16 110/70 99 05/26/16 09:16 98.7 Orders Complete Blood Count With Diff (05/26/16 09:31) Retic Count (05/26/16 09:31) Ecg Monitoring (05/26/16 09:31) Iv Access Insert/Monitor (05/26/16 09:31) Oximetry (05/26/16 09:31) Hydromorphone Pf Inj (Dilaudid Pf Inj) (05/26/16 09:45) Ondansetron Inj (Zofran Inj) (05/26/16 09:45) Sodium Chloride 0.9% Flush (Ns Flush) (05/26/16 09:45) Sodium Chlor 0.9% 1000 Ml Inj (Ns 1000 M (05/26/16 09:31) Diphenhydramine Inj (Benadryl Inj) (05/26/16 09:45) Heparin Central Flush (Heparin Central F (05/26/16 09:45) Sodium Chloride 0.9% Flush (Ns Flush) (05/26/16 09:45) Heparin Central Flush (Heparin Central F (05/26/16 09:45) Hydromorphone Pf Inj (Dilaudid Pf Inj) (05/26/16 11:00) Diphenhydramine Inj (Benadryl Inj) (05/26/16 11:00) Sodium Chlor 0.9% 1000 Ml Inj (Ns 1000 M (05/26/16 11:15) Labs Laboratory Tests Test 05/26/16 09:41 White Blood Count 10.6 TH/MM3 Corrected White Blood Count 10.1 TH/MM3 Red Blood Count 2.34 MIL/MM3 Hemoglobin 7.8 GM/DL Hematocrit 22.8 % Mean Corpuscular Volume 97.5 FL Mean Corpuscular Hemoglobin 33.1 PG Mean Corpuscular Hemoglobin 34.0 % Concent Red Cell Distribution Width 21.2 % Platelet Count 457 TH/MM3 Mean Platelet Volume 8.0 FL Neutrophils (%) (Auto) % Lymphocytes (%) (Auto) % Monocytes (%) (Auto) % Eosinophils (%) (Auto) % Basophils (%) (Auto) % Neutrophils # (Auto) TH/MM3 Lymphocytes # (Auto) TH/MM3 Monocytes # (Auto) TH/MM3 Eosinophils # (Auto) TH/MM3 Basophils # (Auto) TH/MM3 CBC Comment AUTO DIFF Differential Total Cells 100 Counted Neutrophils % (Manual) 40 % Lymphocytes % 47 % Monocytes % 6 % Eosinophils % 7 % Neutrophils # (Manual) 4.0 TH/MM3 Nucleated Red Blood Cells 5 /100 WBC Differential Comment FINAL DIFF MANUAL Platelet Estimate NORMAL Platelet Morphology Comment NORMAL Sickle Cells 2+ Target Cells 2+ Ovalocytes 1+ Caraballo-Redding Bodies PRESENT Keratocytes 1+ Reticulocyte Count 8.4 % Absolute Reticulocyte Count 187.6 MIL/L MDM Medical Decision Making Medical Screen Exam Complete: Yes Emergency Medical Condition: Yes Medical Record Reviewed: Yes Interpretation(s) Laboratory Tests Test 05/26/16 09:41 White Blood Count 10.6 TH/MM3 Corrected White Blood Count 10.1 TH/MM3 Red Blood Count 2.34 MIL/MM3 Hemoglobin 7.8 GM/DL Hematocrit 22.8 % Mean Corpuscular Volume 97.5 FL Mean Corpuscular Hemoglobin 33.1 PG Mean Corpuscular Hemoglobin 34.0 % Concent Red Cell Distribution Width 21.2 % Platelet Count 457 TH/MM3 Mean Platelet Volume 8.0 FL Neutrophils (%) (Auto) % Lymphocytes (%) (Auto) % Monocytes (%) (Auto) % Eosinophils (%) (Auto) % Basophils (%) (Auto) % Neutrophils # (Auto) TH/MM3 Lymphocytes # (Auto) TH/MM3 Monocytes # (Auto) TH/MM3 Eosinophils # (Auto) TH/MM3 Basophils # (Auto) TH/MM3 CBC Comment AUTO DIFF Differential Total Cells 100 Counted Neutrophils % (Manual) 40 % Lymphocytes % 47 % Monocytes % 6 % Eosinophils % 7 % Neutrophils # (Manual) 4.0 TH/MM3 Nucleated Red Blood Cells 5 /100 WBC Differential Comment FINAL DIFF MANUAL Platelet Estimate NORMAL Platelet Morphology Comment NORMAL Sickle Cells 2+ Target Cells 2+ Ovalocytes 1+ Caraballo-Redding Bodies PRESENT Keratocytes 1+ Reticulocyte Count 8.4 % Absolute Reticulocyte Count 187.6 MIL/L Differential Diagnosis Differential diagnosis includes vaso-occlusive crisis, dehydration, symptomatic anemia, iron toxicity, acute chest syndrome, septicemia, malingering. Narrative Course The patient's port was accessed, labs were drawn and sent, and the patient was placed on cardiac telemetry monitoring and continuous pulse oximetry monitoring. The patient was administered Dilaudid, Benadryl, Zofran, and IV fluids. CBC and reticulocyte were sent to lab. White count is 10.6, hemoglobin 7.8, baseline for patient, reticulin count is appropriate. The patient was reevaluated, still had moderate pain, therefore, was administered another dose of pain medications. The patient will be discharged home and is advised to follow-up with her servomechanism assembler. Patient does have a ride home with her family. Diagnosis Primary Impression: Vaso-occlusive sickle cell crisis Patient Instructions: General Instructions Additional Instructions: Follow-up with your primary physician and servomechanism assembler. Return if symptoms worsen or progress. Monitor for fever. Med/Other Pt SpecificInfo: No Change to Meds Disposition: 01 DISCHARGE HOME Condition: Stable Manuel Peterson MD May 26, 2016 09:36
[2016-05-26] MEDS ORDERED: SODIUM CHLORIDE 0.9% FLUSH 5 ML FLUSH IVF PRN ×2 (09:45)
[2016-05-26] MEDS ORDERED: HYDROmorphone HCL PF 2 MG/ML VIAL IVS ONE (09:45)
[2016-05-26] MEDS ORDERED: diphenhydrAMINE HCL 50 MG/ML VIAL IV ONE (09:45)
[2016-05-26] MEDS ORDERED: ONDANSETRON HCL 4 MG/2 ML VIAL IVP ONE (09:45)
[2016-05-26 09:51] VITALS: O2SAT 96
[2016-05-26 09:53] LABS: HEMATOCRIT 22.8 % (35.0-46.0); MEAN CELL VOLUME 97.5 FL (80.0-100.0); MEAN CORPUSCULAR HEMOGLOBIN 33.1 PG (27.0-34.0); PLATELET COUNT 457 TH/MM3 (150-450); RED BLOOD COUNT 2.34 MIL/MM3 (4.00-5.30); RED CELL DISTRIBUTION WIDTH 21.2 % (11.6-17.2); WHITE BLOOD COUNT 10.6 TH/MM3 (4.0-11.0)
[2016-05-26 09:58] LABS: HEMO FLAGS AUTO DIFF
[2016-05-26 10:25] LABS: CORRECTED NUCLEATED RBC 5 /100 WBC (0-0); CORRECTED WBC 10.1 TH/MM3 (4.0-11.0); EOSINOPHILS 7 % (0-4); KERATOCYTES 1+ (NORMAL); OVALOCYTES 1+ (NORMAL); POLYS (SEG NEUTROPHILS) 40 % (16-70); SICKLE CELLS 2+ (NORMAL); TARGET CELLS 2+ (NORMAL); WBC DIFF SAMPLE 100
[2016-05-26 10:26] LABS: HOWELL-JOLLY BODIES PRESENT (NONE SEEN); PLATELET ESTIMATE SMEAR NORMAL (NORMAL); PLATELET MORPHOLOGY NORMAL (NORMAL); SCAN/DIFF FINAL DIFF MANUAL
[2016-05-26 10:50] VITALS: BP 110/70; PULSE 95; RESP 16; O2SAT 99
[2016-05-26 10:57] LABS: RETIC % 8.4 % (0.4-3.0)
[2016-05-26 10:58] LABS: REVIEW FLAG FINAL
[2016-05-26] MEDS ORDERED: HYDROmorphone HCL PF 2 MG/ML VIAL IV PUSH ONE (11:00)
[2016-05-26] MEDS ORDERED: diphenhydrAMINE HCL 50 MG/ML VIAL IV PUSH ONE (11:00)
[2016-05-26 12:31] VITALS: RESP 16
[2016-05-26 12:37] VITALS: BP 103/59
== END 2016-05-26 12:37 | disposition home or self-care (01) ==
LOC: PHED 09:07
DX: D57.00 Hb-SS disease with crisis, unspecified (principal); I10 Essential (primary) hypertension; M41.9 Scoliosis, unspecified; Z79.82 Long term (current) use of aspirin; Z96.641 Presence of right artificial hip joint
CPT/HCPCS: 85007; 85027; 85044; 96361; 96374; 96375; 96376; 99284; J1170; J1200; J1642; J2405; J7030

== ENCOUNTER 2016-05-27 20:05 | Inpatient (IN) | payer MEDICARE, OTHER ==
[~2016-05-27] VITALS: Ht 165.1 cm; Wt 62.6 kg
[2016-05-27 20:18] VITALS: BP 118/87; PULSE 107; RESP 18; TEMP 98.5; O2SAT 96
[2016-05-27] MEDS ORDERED: SODIUM CHLOR 0.9% 1000 ML INJ 1,000 ML IV ONE (20:25)
[2016-05-27] MEDS ORDERED: ONDANSETRON HCL 4 MG/2 ML VIAL IVP ONE (20:30)
[2016-05-27] MEDS ORDERED: HYDROmorphone HCL PF 2 MG/ML VIAL IVS ONE (20:30)
[2016-05-27] MEDS ORDERED: diphenhydrAMINE HCL 50 MG/ML VIAL IV ONE (20:30)
[2016-05-27] MEDS ORDERED: SODIUM CHLORIDE 0.9% FLUSH 5 ML FLUSH IVF PRN ×2 (20:30)
--- NOTE | 2016-05-27 20:30 | PD ---
HPI Chief Complaint: Sickle Cell Time Seen by Provider: 20:25 Travel History International Travel<30 days: No Contact w/Intl Traveler<30days: No Traveled to known affect area: No History of Present Illness HPI The patient is a 35-year-old [place]yn female who presents emergency department for sickle cell pain crisis. The patient has a history of sickle cell disease, unsure if it is SS or SC. The patient is followed by her trimmer machine, Dr. Shea. The patient states over the last 3-4 days she's had increasing pain in the chest, back, which is consistent with her normal sickle cell vaso-occlusive crisis. The patient denies any new cough, fever, chills, or sweats. The patient called her trimmer machine office earlier today, however, was unable to be seen in the treatment center. The patient has been seen 3 times in the last week for sickle cell vaso-occlusive crisis, however, her pain always returns, leading to pain control in the emergency department. The patient does have a history of elevated ferritin in the past as well and is currently being treated by her trimmer machine. The patient denies any dysuria. The drums are moderate, exacerbated by history of sickle cell disease, and there are no current alleviating factors. PFSH Past Medical History Hx Anticoagulant Therapy: Yes (asa 81mg) Anemia: Yes (SICKLE CELL) Arthritis: No Asthma: No Autoimmune Disease: No Blood Disorders: Yes (SICKLE CELL) Anxiety: No Depression: No Heart Rhythm Problems: No Cancer: No Cardiovascular Problems: Yes (htn not on meds) High Cholesterol: No Chemotherapy: No Chest Pain: No Congestive Heart Failure: No COPD: No Cerebrovascular Accident: No Diabetes: No Diminished Hearing: No Deep Vein Thrombosis: Yes (HX LEFT ARM ) Endocrine: No Gastrointestinal Disorders: No GERD: No Glaucoma: No Genitourinary: No Headaches: Yes Hepatitis: No Hiatal Hernia: No Heparin Induced Thrombocytopen: No Hypertension: Yes Immune Disorder: Yes (SICKLE CELL) Implanted Vascular Access Dvce: Yes (POWER INFUSAPORT) Kidney Stones: No Musculoskeletal: Yes (SCOLIOSIS) Neurologic: No Psychiatric: No Reproductive: No Respiratory: No Immunizations Current: Yes Migraines: Yes Pneumonia: Yes Radiation Therapy: No Renal Failure: No Seizures: No Sickle Cell Disease: Yes Sleep Apnea: No Thyroid Disease: No Ulcer: No PNEUMOCCOCAL Vaccine (Year): 2008 ?: Not Menopausal: No : 5 Para: 2 Miscarriage: 3 : 0 Ovarian Cysts: Yes Past Surgical History Abdominal Surgery: Yes (CHOLECYSTECTOMY) AICD: No Arteriovenous Shunt: No Body Medical Devices: CATIA IN UPPER BACK, INFUSAPORT RIGHT CHEST: 2014 Cardiac Surgery: No Cholecystectomy: Yes Ear Surgery: No Endocrine Surgery: No Eye Surgery: No Genitourinary Surgery: No Gynecologic Surgery: No Hysterectomy: No Insulin Pump: No Joint Replacement: Yes (R HIP REPLACEMENT 2011, L HIP 2014) Neurologic Surgery: No Oral Surgery: No Pacemaker: No Thoracic Surgery: No Other Surgery: Yes (INSERTION OF INFUSA PORTX 3) Social History Alcohol Use: Yes (occass. wine) Tobacco Use: No Substance Use: No Allergies-Medications (Allergen,Severity, Reaction): Coded Allergies: Toradol (Verified Allergy, Severe, Itching, 05/27/16) Morphine (Verified Allergy, Mild, Swelling, 05/27/16) Methadone (Verified Adverse Reaction, Severe, DEPRESSION, 05/27/16) Motrin (Verified Adverse Reaction, Severe, Urinary Freq (Inc/Dec), 05/27/16) RENAL FAILURE *MDRO Multi-Drug Resistant Organism (Verified Adverse Reaction, Unknown, ) VRE urine 2013 VRE screens NEGATIVE - 11/12/14 and 12/18/14 CLEARED PER INFECTION CONTROL Reported Meds & Prescriptions Reported Meds & Active Scripts Active Reported Dilaudid (Hydromorphone HCl) 4 Mg Tab 4 Mg PO Q4H PRN Hydroxyurea 500 Mg Cap 500 Mg PO TID Folate (Folic Acid) 1 Mg Tab 1 Mg PO DAILY Jadenu (Deferasirox) 90 Mg Tab 1 Tab PO DAILY@1600 Aspirin 81 Mg Tabdr 81 Mg PO DAILY Review of Systems Except as stated in HPI: all other systems reviewed are Neg General / Constitutional: No: Fever HENT: No: Headaches, Lightheadedness Cardiovascular: Positive: Chest Pain or Discomfort (chest pain radiating to the back) Respiratory: No: Shortness of Breath Gastrointestinal: No: Nausea, Vomiting, Abdominal Pain Genitourinary: No: Dysuria Musculoskeletal: Positive: Myalgias, Arthralgias Physical Exam Narrative GENERAL: Awake, alert, 35 year-old female appears her stated age and in moderate discomfort. SKIN: Warm and dry. HEAD: Atraumatic. Normocephalic. EYES: Pupils equal and round. Mild icterus and pallor noted. ENT: No nasal bleeding or discharge. Mucous membranes pink and moist. NECK: Trachea midline. No JVD. CARDIOVASCULAR: Regular, tachycardic with a heart rate of 105. RESPIRATORY: No accessory muscle use. Clear to auscultation. Breath sounds equal bilaterally. GASTROINTESTINAL: Abdomen soft, non-tender, nondistended. Well-healed laparoscopic scars on the abdomen. MUSCULOSKELETAL: No obvious deformities. No clubbing. No cyanosis. No edema. NEUROLOGICAL: Awake and alert. No obvious cranial nerve deficits. Motor grossly within normal limits. Normal speech. PSYCHIATRIC: Appropriate mood and affect; insight and judgment normal. Data Data Last Documented VS Vital Signs Date Time Temp Pulse Resp B/P Pulse Ox O2 Delivery O2 Flow Rate FiO2 05/27/16 21:54 107 20 107/68 95 Room Air 05/27/16 20:18 98.5 Orders Complete Blood Count With Diff (05/27/16 20:25) Comprehensive Metabolic Panel (05/27/16 20:25) Retic Count (05/27/16 20:25) Ecg Monitoring (05/27/16 20:25) Iv Access Insert/Monitor (05/27/16 20:25) Oximetry (05/27/16 20:25) Hydromorphone Pf Inj (Dilaudid Pf Inj) (05/27/16 20:30) Ondansetron Inj (Zofran Inj) (05/27/16 20:30) Sodium Chloride 0.9% Flush (Ns Flush) (05/27/16 20:30) Sodium Chlor 0.9% 1000 Ml Inj (Ns 1000 M (05/27/16 20:25) Diphenhydramine Inj (Benadryl Inj) (05/27/16 20:30) Heparin Central Flush (Heparin Central F (05/27/16 20:30) Sodium Chloride 0.9% Flush (Ns Flush) (05/27/16 20:30) Ldh Serum (05/27/16 20:25) Type And Screen (05/27/16 21:36) Hydromorphone Pf Inj (Dilaudid Pf Inj) (05/27/16 22:15) Admit Order (Ed Use Only) (05/27/16 22:14) Admit To Inpatient (05/27/16 ) Vital Signs (Adult) Q4H (05/27/16 22:14) Activity Oob Ad Fabienne (05/27/16 22:14) Learning And Development Coordinator / Telemetry .CONTINUOUS (05/27/16 22:14) Diet Heart Healthy (05/28/16 Breakfast) Sodium Chlor 0.9% 1000 Ml Inj (Ns 1000 M (05/27/16 22:14) Sodium Chloride 0.9% Flush (Ns Flush) (05/27/16 22:15) Sodium Chloride 0.9% Flush (Ns Flush) (05/28/16 09:00) Ondansetron Inj (Zofran Inj) (05/27/16 22:15) Basic Metabolic Panel (Bmp) (05/28/16 06:00) Complete Blood Count With Diff (05/28/16 06:00) Scd Bilateral/Knee High KALEIGH.BID (05/27/16 22:14) Naloxone Inj (Narcan Inj) (05/27/16 22:15) Inpatient Certification (05/27/16 ) Hydromorphone Pf Inj (Dilaudid Pf Inj) (05/27/16 22:15) Labs Laboratory Tests Test 05/27/16 21:25 White Blood Count 10.0 TH/MM3 Red Blood Count 2.01 MIL/MM3 Hemoglobin 7.0 GM/DL Hematocrit 19.5 % Mean Corpuscular Volume 97.1 FL Mean Corpuscular Hemoglobin 34.8 PG Mean Corpuscular Hemoglobin 35.8 % Concent Red Cell Distribution Width 23.4 % Platelet Count 426 TH/MM3 Mean Platelet Volume 7.8 FL Neutrophils (%) (Auto) % Lymphocytes (%) (Auto) % Monocytes (%) (Auto) % Eosinophils (%) (Auto) % Basophils (%) (Auto) % Neutrophils # (Auto) TH/MM3 Lymphocytes # (Auto) TH/MM3 Monocytes # (Auto) TH/MM3 Eosinophils # (Auto) TH/MM3 Basophils # (Auto) TH/MM3 CBC Comment AUTO DIFF Differential Total Cells 100 Counted Neutrophils % (Manual) 63 % Band Neutrophils % 1 % Lymphocytes % 25 % Monocytes % 4 % Eosinophils % 7 % Neutrophils # (Manual) 6.4 TH/MM3 Differential Comment FINAL DIFF MANUAL Platelet Estimate HIGH Platelet Morphology Comment NORMAL Sickle Cells 3+ Target Cells 2+ Ovalocytes 2+ Sodium Level 142 MEQ/L Potassium Level 3.7 MEQ/L Chloride Level 107 MEQ/L Carbon Dioxide Level 27.6 MEQ/L Anion Gap 7 MEQ/L Blood Urea Nitrogen 6 MG/DL Creatinine 1.10 MG/DL Estimat Glomerular Filtration 69 ML/MIN Rate Random Glucose 81 MG/DL Calcium Level 8.0 MG/DL Total Bilirubin 1.2 MG/DL Aspartate Amino Transf 40 U/L (AST/SGOT) Alanine Aminotransferase 24 U/L (ALT/SGPT) Alkaline Phosphatase 115 U/L Total Protein 7.5 GM/DL Albumin 3.1 GM/DL MDM Medical Decision Making Medical Screen Exam Complete: Yes Emergency Medical Condition: Yes Medical Record Reviewed: Yes Interpretation(s) Laboratory Tests Test 05/27/16 21:25 White Blood Count 10.0 TH/MM3 Red Blood Count 2.01 MIL/MM3 Hemoglobin 7.0 GM/DL Hematocrit 19.5 % Mean Corpuscular Volume 97.1 FL Mean Corpuscular Hemoglobin 34.8 PG Mean Corpuscular Hemoglobin 35.8 % Concent Red Cell Distribution Width 23.4 % Platelet Count 426 TH/MM3 Mean Platelet Volume 7.8 FL Neutrophils (%) (Auto) % Lymphocytes (%) (Auto) % Monocytes (%) (Auto) % Eosinophils (%) (Auto) % Basophils (%) (Auto) % Neutrophils # (Auto) TH/MM3 Lymphocytes # (Auto) TH/MM3 Monocytes # (Auto) TH/MM3 Eosinophils # (Auto) TH/MM3 Basophils # (Auto) TH/MM3 CBC Comment AUTO DIFF Differential Total Cells 100 Counted Neutrophils % (Manual) 63 % Band Neutrophils % 1 % Lymphocytes % 25 % Monocytes % 4 % Eosinophils % 7 % Neutrophils # (Manual) 6.4 TH/MM3 Differential Comment FINAL DIFF MANUAL Platelet Estimate HIGH Platelet Morphology Comment NORMAL Sickle Cells 3+ Target Cells 2+ Ovalocytes 2+ Sodium Level 142 MEQ/L Potassium Level 3.7 MEQ/L Chloride Level 107 MEQ/L Carbon Dioxide Level 27.6 MEQ/L Anion Gap 7 MEQ/L Blood Urea Nitrogen 6 MG/DL Creatinine 1.10 MG/DL Estimat Glomerular Filtration 69 ML/MIN Rate Random Glucose 81 MG/DL Calcium Level 8.0 MG/DL Total Bilirubin 1.2 MG/DL Aspartate Amino Transf 40 U/L (AST/SGOT) Alanine Aminotransferase 24 U/L (ALT/SGPT) Alkaline Phosphatase 115 U/L Total Protein 7.5 GM/DL Albumin 3.1 GM/DL Differential Diagnosis Differential diagnosis includes vaso-occlusive crisis, acute chest syndrome, symptomatic anemia, malingering, drug-seeking behavior, pneumonia. Narrative Course The patient's port was accessed. Labs were drawn and sent. The patient was placed on cardiac telemetry monitoring and continuous pulse oximetry monitoring. The patient was administered Dilaudid, Benadryl, Zofran, and IV fluids. I reviewed the patient's EMR and CBC/were to count over the last several days. The patient appears to have vaso-occlusive crisis that has failed 3 days of emergency department pain management and home management. Therefore, the patient will be admitted. The patient's hemoglobin has fallen from 7.8 yesterday to 7.0. Therefore, type and screen was ordered, however, blood was not ordered as the patient does have a history of elevated ferritin from previous transfusions, will hold type and screen in case patient's hemoglobin falls less than 6. The patient will be admitted to the on-call medical service. Physician Communication Physician Communication [facility] were paged for admission. I discussed the patient with Dr. Sandoval who agrees with admission. Diagnosis Primary Impression: Vaso-occlusive sickle cell crisis Additional Impression: Sickle cell anemia with crisis Admitting Information Admitting Physician Requests: Admit Condition: Stable Manuel Peterson MD May 27, 2016 20:30
[2016-05-27 20:36] VITALS: RESP 18; O2SAT 96
[2016-05-27 21:31] LABS: MEAN CELL VOLUME 97.1 FL (80.0-100.0); MEAN CORPUSCULAR HEMOGLOBIN 34.8 PG (27.0-34.0); MEAN CORPUSCULAR HGB CONC 35.8 % (32.0-36.0); PLATELET COUNT 426 TH/MM3 (150-450); RED BLOOD COUNT 2.01 MIL/MM3 (4.00-5.30); RED CELL DISTRIBUTION WIDTH 23.4 % (11.6-17.2)
[2016-05-27 21:33] LABS: HEMO FLAGS AUTO DIFF
[2016-05-27 21:34] LABS: HEMATOCRIT 19.5 % (35.0-46.0)
[2016-05-27 21:45] LABS: CHLORIDE 107 MEQ/L (98-107); POTASSIUM 3.7 MEQ/L (3.5-5.1); SODIUM (NA) 142 MEQ/L (136-145)
[2016-05-27 21:49] LABS: ANION GAP 7 MEQ/L (5-15); BICARBONATE 27.6 MEQ/L (21.0-32.0)
[2016-05-27 21:50] LABS: BLOOD UREA NITROGEN 6 MG/DL (7-18)
[2016-05-27 21:52] LABS: ALT (GPT) 24 U/L (10-53); AST (GOT) 40 U/L (15-37); GLOMERULAR FILTRATION RATE 69 ML/MIN (>89)
[2016-05-27 21:53] LABS: BANDS 1 % (0-6); EOSINOPHILS 7 % (0-4); NEUTROPHIL # MANUAL DIFF 6.4 TH/MM3 (1.8-7.7); POLYS (SEG NEUTROPHILS) 63 % (16-70); WBC DIFF SAMPLE 100
[2016-05-27 21:54] VITALS: BP 107/68; PULSE 107; RESP 20; O2SAT 95
[2016-05-27 21:54] LABS: OVALOCYTES 2+ (NORMAL); PLATELET ESTIMATE SMEAR HIGH (NORMAL); PLATELET MORPHOLOGY NORMAL (NORMAL); SCAN/DIFF FINAL DIFF MANUAL; SICKLE CELLS 3+ (NORMAL); TARGET CELLS 2+ (NORMAL); TOTAL BILIRUBIN ADULT 1.2 MG/DL (0.2-1.0)
[2016-05-27 21:55] LABS: ALKALINE PHOSPHATASE 115 U/L (45-117)
[2016-05-27] MEDS: SODIUM CHLOR 0.9% 1000 ML INJ 1,000 ML IV SCH (22:14)
[2016-05-27] MEDS ORDERED: ONDANSETRON HCL 4 MG/2 ML VIAL IVP PRN (22:15)
[2016-05-27] MEDS ORDERED: NALOXONE HCL 0.4 MG/ML AMP IV PRN (22:15)
[2016-05-27] MEDS ORDERED: SODIUM CHLORIDE 0.9% FLUSH 5 ML FLUSH FLUSH PRN (22:15)
[2016-05-27] MEDS ORDERED: HYDROmorphone HCL PF 1 MG/ML VIAL IV PUSH ONE (22:15)
[2016-05-27 22:28] LABS: RETIC % 9.2 % (0.4-3.0)
[2016-05-27 22:29] LABS: REVIEW FLAG FINAL
[2016-05-27 22:36] LABS: LDH SERUM 347 U/L (84-246)
[2016-05-28] VITALS (17 sets, daily range): BP systolic 106–143; BP diastolic 66–99; PULSE 70–99; RESP 18–20; TEMP 95.5–97.8; O2SAT 85–100
[2016-05-28] MEDS: SODIUM CHLOR 0.9% 1000 ML INJ 1,000 ML IV SCH ×6 (02:14→22:34)
[2016-05-28] MEDS: HYDROmorphone HCL PF 1 MG/ML VIAL IV PUSH PRN ×10 (02:28→22:29)
[2016-05-28 06:14] LABS: MEAN CORPUSCULAR HEMOGLOBIN 34.4 PG (27.0-34.0); MEAN CORPUSCULAR HGB CONC 35.1 % (32.0-36.0); PLATELET COUNT 322 TH/MM3 (150-450); RED BLOOD COUNT 1.79 MIL/MM3 (4.00-5.30); RED CELL DISTRIBUTION WIDTH 22.5 % (11.6-17.2); WHITE BLOOD COUNT 10.5 TH/MM3 (4.0-11.0)
[2016-05-28 06:21] LABS: HEMO FLAGS AUTO DIFF
[2016-05-28 06:26] LABS: HEMATOCRIT 17.5 % (35.0-46.0)
[2016-05-28 06:35] LABS: POTASSIUM 3.5 MEQ/L (3.5-5.1)
[2016-05-28 06:38] LABS: BICARBONATE 29.6 MEQ/L (21.0-32.0)
[2016-05-28 06:39] LABS: BANDS 1 % (0-6); CORRECTED NUCLEATED RBC 6 /100 WBC (0-0); CORRECTED WBC 9.9 TH/MM3 (4.0-11.0); EOSINOPHILS 3 % (0-4); NEUTROPHIL # MANUAL DIFF 5.5 TH/MM3 (1.8-7.7); POLYS (SEG NEUTROPHILS) 55 % (16-70); WBC DIFF SAMPLE 100
[2016-05-28 06:40] LABS: OVALOCYTES 2+ (NORMAL); PLATELET ESTIMATE SMEAR NORMAL (NORMAL); PLATELET MORPHOLOGY NORMAL (NORMAL); SCAN/DIFF FINAL DIFF MANUAL; SICKLE CELLS 3+ (NORMAL); TARGET CELLS 1+ (NORMAL)
[2016-05-28] MEDS ORDERED: SODIUM CHLOR 0.9% 250 ML INJ 250 ML IV ONE (07:15)
[2016-05-28] MEDS ORDERED: diphenhydrAMINE HCL 25 MG CAP PO PRN (07:15)
[2016-05-28] MEDS ORDERED: ACETAMINOPHEN 325 MG TAB PO PRN (07:15)
[2016-05-28] MEDS: HYDROXYUREA 500 MG CAP PO SCH ×3 (08:26→17:09)
[2016-05-28] MEDS: ASPIRIN EC 81 MG TABEC PO SCH (08:26)
[2016-05-28] MEDS: FOLIC ACID 1 MG TAB PO SCH (08:26)
[2016-05-28] MEDS: SODIUM CHLORIDE 0.9% FLUSH 5 ML FLUSH FLUSH SCH ×2 (08:27→20:19)
--- NOTE | 2016-05-28 09:05 | HHI.HP ---
[facility] Service [facility] Primary Care Physician Lilo Shea MD Admission Diagnosis vaso-occlusive sickle cell anemia crisis, anemia Diagnoses: Chief Complaint: Chest pain Back pain Sickle cell crisis Travel History International Travel<30 Days: No Contact w/Intl Traveler <30 Da: No Traveled to Known Affected Are: No History of Present Illness This is a pleasant 35-year-old female with past medical history of sickle cell disease requiring frequent hospitalizations. She states yesterday she developed typical sickle cell pain in her chest and back. In the ED, her hemoglobin is 6.2 and hematocrit is 17.5. Patient denies any change in her medications. She denies any other complaints such as nausea, vomiting, shortness of breath or fever. Review of Systems Constitutional: DENIES: Fever, Weight gain, Chills Endocrine: DENIES: Polydipsia, Polyuria Eyes: DENIES: Diplopia, Eye pain, Vision loss Ears, nose, mouth, throat: DENIES: Hearing loss, Vertigo, Throat pain Respiratory: DENIES: Cough, Wheezing, Hemoptysis, Shortness of breath Cardiovascular: COMPLAINS OF: Chest pain (as stated in HPI), DENIES: Palpitations, Lower Extremity Edema Gastrointestinal: DENIES: Black stools, Bloody stools, Diarrhea, Nausea, Vomiting Genitourinary: DENIES: Urgency, Hematuria, Dysuria Musculoskeletal: COMPLAINS OF: Back pain (as stated on HPI), DENIES: Joint Swelling Integumentary: DENIES: Pruritus, Rash Hematologic/lymphatic: DENIES: Lymphadenopathy Immunologic/allergic: DENIES: Urticaria Neurologic: DENIES: Headache, Localized weakness, Paresthesias Psychiatric: DENIES: Confusion, Mood changes, Depression Past Family Social History Past Medical History Sickle cell disease History of avascular necrosis chronic kidney disease due to blood transfusion iron overload History of DVT left arm scoliosis migraines because of medications. Past Surgical History Right total hip replacement 2011 Left hip replacement 2014 cholecystectomy 2002 back surgery at age 15 (joey placed) [id number] R chest Reported Medications Dilaudid (Hydromorphone HCl) 4 Mg Tab 4 Mg PO Q4H PRN Hydroxyurea 500 Mg Cap 500 Mg PO TID Folate (Folic Acid) 1 Mg Tab 1 Mg PO DAILY Jadenu (Deferasirox) 90 Mg Tab 1 Tab PO BID Aspirin 81 Mg Tabdr 81 Mg PO DAILY Allergies: Coded Allergies: Toradol (Verified Allergy, Severe, Itching, 05/27/16) Morphine (Verified Allergy, Mild, Swelling, 05/27/16) Methadone (Verified Adverse Reaction, Severe, DEPRESSION, 05/27/16) Motrin (Verified Adverse Reaction, Severe, Urinary Freq (Inc/Dec), 05/27/16) RENAL FAILURE *MDRO Multi-Drug Resistant Organism (Verified Adverse Reaction, Unknown, ) VRE urine 2013 VRE screens NEGATIVE - 11/12/14 and 12/18/14 CLEARED PER INFECTION CONTROL Active Ordered Medications Current Medications Medications (Trade) Dose Ordered Sig/Abigail Route Start Time Stop Time Status Last Admin (NS 1000 ml Inj) 1,000 ml @ 250 mls/hr Q4H IV 05/27/16 22:14 05/28/16 08:27 (NS Flush) 2 ml UNSCH PRN FLUSH 05/27/16 22:15 (NS Flush) 2 ml BID FLUSH 05/28/16 09:00 (Zofran Inj) 4 mg Q6H PRN IVP 05/27/16 22:15 (Narcan Inj) 0.4 mg UNSCH PRN IV 05/27/16 22:15 Hydromorphone HCl 1 mg 1 mg Q2HR PRN IV PUSH 05/27/16 22:15 05/28/16 07:24 (NS 250 ml Inj) 250 ml @ 15 mls/hr ONCE ONCE IV 05/28/16 07:15 05/28/16 23:54 05/28/16 08:26 (Tylenol) 650 mg Q4H PRN PO 05/28/16 07:15 05/28/16 11:16 (Benadryl) 25 mg Q4H PRN PO 05/28/16 07:15 05/28/16 11:16 (Ecotrin Ec) 81 mg DAILY PO 05/28/16 09:00 05/28/16 08:26 (Folate) 1 mg DAILY PO 05/28/16 09:00 05/28/16 08:26 (Hydrea) 500 mg TID PO 05/28/16 09:00 05/28/16 08:26 Patient Own Medication PT OWN MED: DEFERASI... DAILY@16 PO 05/28/16 16:00 Family History Reviewed is significant for mother having hypertension and sickle cell, father with diabetes hypertension and sickle cell Social History Patient denies any tobacco or alcohol use or illicit drug use. Physical Exam Vital Signs Vital Signs Date Time Temp Pulse Resp B/P Pulse Ox O2 Delivery O2 Flow Rate FiO2 05/28/16 08:00 96.8 95 20 106/66 88 05/28/16 04:00 96.7 97 19 109/71 94 05/28/16 03:55 99 05/28/16 03:38 18 96 Nasal Cannula 2 05/28/16 03:04 18 05/28/16 02:12 93 18 96 Nasal Cannula 2 05/28/16 02:12 93 18 139/84 96 Nasal Cannula 2 05/28/16 00:06 86 18 128/86 97 Nasal Cannula 2 05/28/16 00:06 86 18 97 Nasal Cannula 2 05/27/16 23:11 16 05/27/16 22:23 18 05/27/16 22:17 98 Nasal Cannula 2 05/27/16 21:54 107 20 107/68 95 Room Air 05/27/16 20:36 18 96 Room Air 05/27/16 20:36 107 18 96 Room Air 05/27/16 20:18 98.5 107 18 118/87 96 Physical Exam GENERAL: This is a well-nourished, well-developed patient, in no apparent distress. SKIN: No rashes, ecchymoses or lesions. Cool and dry. HEAD: Atraumatic. Normocephalic. No temporal or scalp tenderness. EYES: Pupils equal round and reactive. Extraocular motions intact. No scleral icterus. No injection or drainage. ENT: Nose without bleeding, purulent drainage or septal hematoma. Throat without erythema, tonsillar hypertrophy or exudate. Uvula midline. Airway patent. NECK: Trachea midline. No lymphadenopathy. Supple, nontender, no meningeal signs. CARDIOVASCULAR: Regular rate and rhythm without murmurs, gallops, or rubs. RESPIRATORY: Clear to auscultation. Breath sounds equal bilaterally. No wheezes , rales, or rhonchi. GASTROINTESTINAL: Abdomen soft, non-tender, nondistended. No hepato-splenomegaly , or palpable masses. No guarding. MUSCULOSKELETAL: Extremities without clubbing, cyanosis, or edema. No joint tenderness, effusion, or edema noted. No calf tenderness. NEUROLOGICAL: Awake and alert. Cranial nerves II through XII intact. Motor and sensory grossly within normal limits. Five out of 5 muscle strength in all muscle groups. Normal speech. Laboratory Laboratory Tests Test 05/27/16 05/27/16 05/28/16 05/28/16 21:25 21:41 05:40 07:09 White Blood Count 10.0 10.5 Red Blood Count 2.01 1.79 Hemoglobin 7.0 6.2 Hematocrit 19.5 17.5 Mean Corpuscular Volume 97.1 98.0 Mean Corpuscular Hemoglobin 34.8 34.4 Mean Corpuscular Hemoglobin 35.8 35.1 Concent Red Cell Distribution Width 23.4 22.5 Platelet Count 426 322 Mean Platelet Volume 7.8 7.9 Neutrophils (%) (Auto) Lymphocytes (%) (Auto) Monocytes (%) (Auto) Eosinophils (%) (Auto) Basophils (%) (Auto) Neutrophils # (Auto) Lymphocytes # (Auto) Monocytes # (Auto) Eosinophils # (Auto) Basophils # (Auto) CBC Comment AUTO DIFF AUTO DIFF Differential Total Cells 100 100 Counted Neutrophils % (Manual) 63 55 Band Neutrophils % 1 1 Lymphocytes % 25 36 Monocytes % 4 5 Eosinophils % 7 3 Neutrophils # (Manual) 6.4 5.5 Differential Comment FINAL DIFF FINAL DIFF MANUAL MANUAL Platelet Estimate HIGH NORMAL Platelet Morphology Comment NORMAL NORMAL Sickle Cells 3+ 3+ Target Cells 2+ 1+ Ovalocytes 2+ 2+ Reticulocyte Count 9.2 Absolute Reticulocyte Count 176.8 Sodium Level 142 143 Potassium Level 3.7 3.5 Chloride Level 107 107 Carbon Dioxide Level 27.6 29.6 Anion Gap 7 6 Blood Urea Nitrogen 6 5 Creatinine 1.10 0.88 Estimat Glomerular Filtration 69 90 Rate Random Glucose 81 89 Calcium Level 8.0 7.7 Total Bilirubin 1.2 Aspartate Amino Transf 40 (AST/SGOT) Alanine Aminotransferase 24 (ALT/SGPT) Alkaline Phosphatase 115 Lactate Dehydrogenase 347 Total Protein 7.5 Albumin 3.1 Blood Type AB POSITIVE AB POSITIVE Antibody Screen NEGATIVE Corrected White Blood Count 9.9 Nucleated Red Blood Cells 6 Crossmatch Leukocyte-Reduced Red Blood Cells Blood Bank Comment Result Diagram: 05/28/16 0540 05/28/16 0540 Assessment and Plan Assessment and Plan This is a pleasant 35-year-old female with past medical history of sickle cell disease requiring frequent hospitalizations. Sickle cell anemia with vaso-occlusive crisis with chest and back pain Continue patient's home medications consisting of Hydrea, Jadenu and folic acid IV Dilaudid for pain management Supplemental oxygen Patient's hemoglobin is currently 6.2. She is scheduled to receive transfusion 1 unit PRBCs and will recheck her H&H to see if additional units are indicated. DVT/GI prophylaxis Pepcid SCDs Written by Merlyn Hedrick, acting as scribe for Dr. Sheehan on 05/28/16 at 09: 04. Physician Certification 2 Midnight Certification Type: Admission for Inpatient Services Order for Inpatient Services The services are ordered in accordance with Medicare regulations or non- Medicare payer requirements, as applicable. In the case of services not specified as inpatient-only, they are appropriately provided as inpatient services in accordance with the 2-midnight benchmark. Estimated LOS (days): 2 days is the estimated time the patient will need to remain in the hospital, assuming treatment plan goals are met and no additional complications. Post-Hospital Plan: Not yet determined Merlyn Hedrick May 28, 2016 09:05
[2016-05-28] MEDS ORDERED: PILL SPLITTER OTHER PRN (13:45)
[2016-05-28] MEDS: FAMOTIDINE 20 MG TAB PO SCH ×2 (14:03→20:18)
[2016-05-28] MEDS ORDERED: DEFERASIROX PO SCH ×2 (16:00)
[2016-05-28] MEDS ORDERED: DEFERASIROX 180 MG PO SCH ×2 (16:00→17:00)
[2016-05-28] MEDS ORDERED: ENOXAPARIN SODIUM 40 MG/0.4 ML SYRINGE SQ SCH (20:00)
--- NOTE | 2016-05-28 21:32 | MB ---
cc: MIKE BOUCHER MD DATE OF CONSULTATION 05/28/[address] Sheehan REASON FOR CONSULTATION Hematology is consulted to render an opinion regarding a patient with sickle-cell crisis. HISTORY OF PRESENT ILLNESS The patient is a 35-year-old female with history of sickle-cell disease and frequent vasoocclusive pain crisis presented with complaint of increased low back pain and sternal pain which are her usual pain characteristics for her sickle cell pain crisis. She was noted to have a hemoglobin of 6.2. When I saw her, she had received one unit of packed red blood cell transfusion. She stated she is feeling better. She denies any fever or chills. She stated that the pain has been going on about three days and she could not manage with outpatient pain medication. She denies any chest pressure. She denies any shortness of breath or cough. She denies any nausea, vomiting, diarrhea or abdominal pain. Denies any dysuria, hematuria. Denies any headache. Denies visual changes. Denies any focal numbness or weakness. PAST MEDICAL HISTORY 1. Sickle-cell disease with frequently vasoocclusive pain crisis. 2. Vascular necrosis of the hip 3. Chronic kidney disease. 4. 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 5. Multiple extremity deep venous thrombosis. 6. Scoliosis 7. Migraine headache. PAST SURGICAL HISTORY 1. Right total hip replacement 2. Left hip replacement. 3. Cholecystectomy. 4. Back surgery 5. Port placement. FAMILY HISTORY Parents had sickle-cell trait. SOCIAL HISTORY Denies tobacco or alcohol use. ALLERGIES TORADOL MOTRIN MORPHINE METHADONE MEDICATIONS Current, 1. ____ 2. Pepcid. 3. Aspirin. 4. Folate. 5. Hydroxyurea. REVIEW OF SYSTEMS CONSTITUTIONAL: Negative. EYES: Negative CARDIOVASCULAR: Negative. RESPIRATORY: As above. GI: Denies nausea, vomiting, diarrhea or abdominal pain. : No dysuria, hematuria. MUSCULOSKELETAL: As above. HEMATOLOGY: As above. ENDOCRINE: Negative. HEMATOLOGY: Negative. PSYCHIATRIC: Negative. NEUROLOGIC: Negative. PHYSICAL EXAMINATION VITAL SIGNS: Temperature 96.7, blood pressure 129/87, O2 saturation 100% on 2 liters nasal cannula. GENERAL: She is alert and x3 in no acute distress sitting on her bed doing her homework HEENT: Atraumatic, normocephalic. Pupils equal, round and reactive to light. Extraocular muscles intact. Oropharynx moist mucosa. No lesion or thrush, no mucositis. NECK: No thyromegaly. No palpable masses. LYMPHATICS: No palpable cervical, clavicular, axillary lymph pr inguinal node CARDIOVASCULAR: Regular S1-S2 no murmur. LUNGS: Clear to auscultation without wheezing or rhonchi. ABDOMEN: Soft, nontender. I could not palpate liver or spleen. EXTREMITIES: No cyanosis or clubbing, no significant edema. BACK: Slight low back pain. SKIN: No rash or petechiae. NEUROLOGIC: Nonfocal. LABORATORY DATA Reviewed ASSESSMENT 1. Sickle-cell disease with frequent vasoocclusive pain crisis. She presented with usual low back pain and sternal pain again. Hemoglobin was down to 6.2. Her baseline hemoglobin is around eight. When I saw her, she had 1 unit of packed red blood cell transfusion and she is feeling better. She has no pulmonary symptoms. She is afebrile. I recommend that she continue with IV fluid hydration and pain control. Also continue with oxygen supplement. Recommend not to give her transfusion unless she is symptomatic. She can continue with the hydroxyurea and folic acid. 2. History of recurrent thromboembolic event. She has been on aspirin. She has no symptoms at this time. We will add Lovenox for DVT prophylaxis. 3. Hemochromatosis due to frequent blood transfusion. She will continue Jadenu. 4. Chronic kidney disease, stable. 5. Avascular necrosis of hips status post hip replacement surgery. 6. Migraine headache. She has no symptoms. RECOMMENDATIONS 1. Continue supportive care with hydration, oxygen supplement and pain control. 2. Add Lovenox for DVT prophylaxis. 3. Continue Hydrea, folic acid and Jadenu. 4. Can be discharged once pain is controlled and stable. Thank you, Dr. Sheehan, for asking me to see this patient. MD CHRIS Junior/ /6:26 PM /9:05 PM LUIS FELIPE
[2016-05-29] VITALS: BP 129/86; PULSE 86; RESP 20; TEMP 97.9; O2SAT 100
[2016-05-29] MEDS: HYDROmorphone HCL PF 1 MG/ML VIAL IV PUSH PRN ×3 (00:05→04:08)
[2016-05-29] MEDS: SODIUM CHLOR 0.9% 1000 ML INJ 1,000 ML IV SCH ×3 (02:10→07:45)
[2016-05-29 05:42] LABS: HEMATOCRIT 22.3 % (35.0-46.0); MEAN CELL VOLUME 96.9 FL (80.0-100.0); MEAN CORPUSCULAR HGB CONC 34.1 % (32.0-36.0); PLATELET COUNT 393 TH/MM3 (150-450); RED CELL DISTRIBUTION WIDTH 23.6 % (11.6-17.2); WHITE BLOOD COUNT 10.7 TH/MM3 (4.0-11.0)
[2016-05-29 05:48] LABS: POTASSIUM 3.8 MEQ/L (3.5-5.1)
[2016-05-29 05:51] LABS: BICARBONATE 28.5 MEQ/L (21.0-32.0); MAGNESIUM 1.5 MG/DL (1.5-2.5)
[2016-05-29 05:53] LABS: HEMO FLAGS AUTO DIFF
[2016-05-29 06:17] LABS: BANDS 1 % (0-6); CORRECTED NUCLEATED RBC 9 /100 WBC (0-0); CORRECTED WBC 9.8 TH/MM3 (4.0-11.0); EOSINOPHILS 5 % (0-4); NEUTROPHIL # MANUAL DIFF 6.6 TH/MM3 (1.8-7.7); OVALOCYTES 1+ (NORMAL); PLATELET ESTIMATE SMEAR NORMAL (NORMAL); PLATELET MORPHOLOGY ENLARGED (NORMAL); POLYS (SEG NEUTROPHILS) 66 % (16-70); SICKLE CELLS 2+ (NORMAL); TARGET CELLS 1+ (NORMAL); WBC DIFF SAMPLE 100
[2016-05-29 06:18] LABS: SCAN/DIFF FINAL DIFF MANUAL
--- NOTE | 2016-05-29 07:14 | HHI.PR ---
Subjective Remarks Patient seen and examined today with Dr. Sheehan. Patient states that she is doing much better. Pain is controlled. No new complaints. Patient eager to go home. Objective Vitals Vital Signs Date Time Temp Pulse Resp B/P Pulse Ox O2 Delivery O2 Flow Rate FiO2 05/29/16 04:38 16 05/29/16 00:00 97.9 86 20 129/86 100 05/28/16 20:00 97.3 81 20 131/90 92 05/28/16 20:00 Nasal Cannula 2.00 05/28/16 15:45 96.7 72 20 129/87 100 05/28/16 14:06 Nasal Cannula 2.00 91 05/28/16 12:45 96.4 94 20 115/80 98 05/28/16 12:30 97.8 70 20 114/75 100 05/28/16 12:15 96.4 94 19 114/75 98 05/28/16 12:00 96.8 94 20 133/92 91 05/28/16 11:45 95.5 89 19 143/99 99 05/28/16 11:30 96.6 93 20 140/92 98 05/28/16 11:15 96.5 98 19 139/91 85 05/28/16 11:00 96.8 91 20 133/92 98 05/28/16 10:45 96.8 93 19 131/92 98 05/28/16 10:17 97.2 87 124/89 05/28/16 08:00 96.8 95 20 106/66 88 I/O 05/28/16 05/28/16 05/28/16 05/29/16 05/29/16 05/29/16 07:00 15:00 23:00 07:00 15:00 23:00 Intake Total 2189 ml 630 ml 3690 ml 3480 ml Balance 2189 ml 630 ml 3690 ml 3480 ml Intake Oral 630 ml 1440 ml 480 ml IV Total 2189 ml 2250 ml 3000 ml # Voids 6 6 4 # Bowel Movements 0 0 Result Diagram: 05/29/16 0500 05/29/16 0500 Objective Remarks GENERAL: Well-developed, well-nourished, in no acute distress. alert and orientated HEENT: Head is normocephalic without any lesions or masses noted. Facial features are symmetric. Eyes: Extraocular muscles are intact. Conjunctivae were clear. NECK: Supple without any masses. Trachea midline no deviation. No JVD, CARDIAC: Regular rhythm, regular rate. S1/S2 are heard. No murmurs gallops or rubs. LUNGS: Clear to auscultation bilaterally. No wheeze, rhonchi or rales. No use of accessory muscles on inspiration or expiration. ABDOMEN: Soft, nontender. Nondistended. Bowel sounds heard in all 4 quadrants. No organomegaly or masses. Negative rebound, negative guarding EXTREMITIES: No edema, pulses are equal bilaterally. No cyanosis or clubbing NEUROLOGY: Mood and affect appear appropriate. Cranial nerves II through XII grossly intact. Moving all extremities, speech is clear Urinary Catheter: No Vascular Central Line Catheter: Yes Assessment to: Continue A/P Assessment and Plan Sickle cell occlusive vaso-occlusive crisis with chest and back pain: Patient' s home medications were continued to include Hydrea, Jadenu, folic acid. Pain is controlled at this time, will discontinue IV Dilaudid, start her home medications of Dilaudid 4 mg every 4 hours. Patient on supplemental oxygen. Patient was transfused 1 unit packed red blood cells with improvement of her hemoglobin. Hematology evaluated the patient and recommended continuation of her home medications and discharge home once pain is controlled DVT/GI prophylaxis: Pepcid and sequential compression devices Written by Sathya Conklin PA-C, acting as scribe for Dr. Sheehan on 05/29/16 at 1015. The documentation accurately reflects the work and decisions performed face-to- face by Dr. Sheehan on 05/29/16 at 1015. Discharge Planning Discharge home in stable condition Activity: Ad sapna. 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
[2016-05-29] MEDS ORDERED: HYDROmorphone HCL 4 MG TAB PO PRN (07:15)
--- NOTE | 2016-05-29 07:15 | HHI.DCPOC ---
Discharge Care Plan Diagnosis: (1) Vaso-occlusive sickle cell crisis Goals to Promote Your Health * To prevent worsening of your condition and complications * To maintain your health at the optimal level Directions to Meet Your Goals Take your medications as prescribed Follow your dietary instruction Follow activity as directed Keep your appointments as scheduled Take your immunizations and boosters as scheduled If your symptoms worsen call your PCP, if no PCP go to Urgent Care Center or Emergency Room Smoking is Dangerous to Your Health. Avoid second hand smoke Call the 24-hour hour crisis hotline for domestic abuse at aSthya Conklin May 29, 2016 07:15
[2016-05-29] MEDS: FAMOTIDINE 20 MG TAB PO SCH (07:44)
[2016-05-29] MEDS: HYDROXYUREA 500 MG CAP PO SCH (07:44)
[2016-05-29] MEDS: ASPIRIN EC 81 MG TABEC PO SCH (07:44)
[2016-05-29] MEDS: SODIUM CHLORIDE 0.9% FLUSH 5 ML FLUSH FLUSH SCH (07:44)
[2016-05-29] MEDS: FOLIC ACID 1 MG TAB PO SCH (07:44)
[2016-05-29 08:00] VITALS: BP 114/73; PULSE 80; RESP 18; TEMP 98.1; O2SAT 96
== END 2016-05-29 11:10 | disposition home or self-care (01) | DRG 812 ==
LOC: PHED 20:05 → PHEDA 22:16 → PH3B 05-28 03:29
PROVIDERS: ADMIT Family Medicine; ATTEND Family Medicine
PROC: 30233N1 Transfusion of Nonautologous Red Blood Cells into Peripheral Vein, Percutaneous Approach (ICD-10-PCS; principal; 2016-05-27)
DX: D57.00 Hb-SS disease with crisis, unspecified (principal); M41.9 Scoliosis, unspecified; I12.9 Hypertensive chronic kidney disease with stage 1 through stage 4 chronic kidney disease, or unspecified chronic kidney disease; G43.909 Migraine, unspecified, not intractable, without status migrainosus; N18.9 Chronic kidney disease, unspecified; E83.119 Hemochromatosis, unspecified; Z96.643 Presence of artificial hip joint, bilateral; Z86.718 Personal history of other venous thrombosis and embolism; Z79.82 Long term (current) use of aspirin; Z79.899 Other long term (current) drug therapy
CPT/HCPCS: 36430; 80048; 80053; 83615; 83735; 85007; 85027; 85044; 85660; 86850; 86900; 86901; 86920; 96361; 96365; 96374; 96375; 96376; J1170; J1200; J1642; J1650; J2405; J2550; J7030; J7050; P9016

== ENCOUNTER 2016-06-28 23:45 | Emergency (ER) | payer MEDICARE, OTHER ==
[~2016-06-28] VITALS: Ht 165.1 cm; Wt 63.0 kg
[2016-06-29 00:08] VITALS: BP 111/78; PULSE 97; RESP 18; TEMP 98.1; O2SAT 95
[2016-06-29] MEDS ORDERED: SODIUM CHLOR 0.9% 1000 ML INJ 1,000 ML IV ONE (00:42)
[2016-06-29] MEDS ORDERED: diphenhydrAMINE HCL 50 MG/ML VIAL IV ONE (00:45)
[2016-06-29] MEDS ORDERED: HYDROmorphone HCL PF 1 MG/ML VIAL IVS ONE (00:45)
[2016-06-29] MEDS ORDERED: ONDANSETRON HCL 4 MG/2 ML VIAL IVP ONE (00:45)
--- NOTE | 2016-06-29 00:55 | PD ---
HPI Chief Complaint: GI Complaint Time Seen by Provider: 00:42 Travel History International Travel<30 days: No Contact w/Intl Traveler<30days: No Traveled to known affect area: No History of Present Illness HPI 35-year-old female with history of sickle cell disease, presents to the ER today with one-day history of pain all over her body, back, trunk, legs, and states that she has been nauseous and lightheaded. She denies any fevers, chest pains, trouble breathing, abdominal pains, or any other symptoms. She has not been vomiting or having diarrhea. She states the pain is currently a 9 out of 10. She is suspect that this is her sickle cell crisis. Modifying Factors: None Associated Signs & Symptoms: Pain all over the body, nausea, lightheadedness Risk Factors: Sickle cell disease PFSH Past Medical History Hx Anticoagulant Therapy: Yes (asa) Anemia: Yes (SICKLE CELL) Arthritis: No Asthma: No Autoimmune Disease: No Blood Disorders: Yes (SICKLE CELL) Anxiety: No Depression: No Heart Rhythm Problems: No Cancer: No Cardiovascular Problems: Yes High Cholesterol: No Chemotherapy: No Chest Pain: No Congestive Heart Failure: No COPD: No Cerebrovascular Accident: No Diabetes: No Diminished Hearing: No Deep Vein Thrombosis: Yes (HX LEFT ARM ) Endocrine: No Gastrointestinal Disorders: No GERD: No Glaucoma: No Genitourinary: No Headaches: Yes Hepatitis: No Hiatal Hernia: No Heparin Induced Thrombocytopen: No Hypertension: Yes Immune Disorder: Yes (SICKLE CELL) Implanted Vascular Access Dvce: Yes (POWER INFUSAPORT) Kidney Stones: No Medical other: Yes (AVASCULAR NECROSIS) Musculoskeletal: Yes (SCOLIOSIS) Neurologic: No Psychiatric: No Reproductive: No Respiratory: No Immunizations Current: Yes Migraines: Yes Pneumonia: Yes Radiation Therapy: No Renal Failure: No Seizures: No Sickle Cell Disease: Yes Sleep Apnea: No Thyroid Disease: No Ulcer: No PNEUMOCCOCAL Vaccine (Year): 2008 ?: Not LMP: 7 mo ago Menopausal: No : 5 Para: 2 Miscarriage: 3 : 0 Ovarian Cysts: Yes Past Surgical History Abdominal Surgery: Yes (CHOLECYSTECTOMY) AICD: No Arteriovenous Shunt: No Body Medical Devices: ACTIA IN UPPER BACK, INFUSAPORT RIGHT CHEST: 2014 Cardiac Surgery: No Cholecystectomy: Yes Ear Surgery: No Endocrine Surgery: No Eye Surgery: No Genitourinary Surgery: No Gynecologic Surgery: No Hysterectomy: No Insulin Pump: No Joint Replacement: Yes (R HIP REPLACEMENT 2011, L HIP 2014) Neurologic Surgery: No Oral Surgery: No Pacemaker: No Thoracic Surgery: No Other Surgery: Yes (INSERTION OF INFUSA PORTX 3) Social History Alcohol Use: Yes (occass. wine) Tobacco Use: No Substance Use: No Allergies-Medications (Allergen,Severity, Reaction): Coded Allergies: Toradol (Verified Allergy, Severe, Itching, 06/29/16) Morphine (Verified Allergy, Mild, Swelling, 06/29/16) Methadone (Verified Adverse Reaction, Severe, DEPRESSION, 06/29/16) Motrin (Verified Adverse Reaction, Severe, Urinary Freq (Inc/Dec), 06/29/16) RENAL FAILURE *MDRO Multi-Drug Resistant Organism (Verified Adverse Reaction, Unknown, ) VRE urine 2013 VRE screens NEGATIVE - 11/12/14 and 12/18/14 CLEARED PER INFECTION CONTROL Reported Meds & Prescriptions Reported Meds & Active Scripts Active Reported Amlodipine (Amlodipine Besylate) 5 Mg Tab 5 Mg PO DAILY Dilaudid (Hydromorphone HCl) 4 Mg Tab 4 Mg PO Q4H PRN Hydroxyurea 500 Mg Cap 500 Mg PO TID Folate (Folic Acid) 1 Mg Tab 1 Mg PO DAILY Jadenu (Deferasirox) 90 Mg Tab 1 Tab PO DAILY@1600 Aspirin 81 Mg Tabdr 81 Mg PO DAILY Review of Systems Except as stated in HPI: all other systems reviewed are Neg Physical Exam Narrative GENERAL: Young -[place] female patient currently awake, alert, oriented 3, in mild distress. SKIN: Focused skin assessment warm/dry. HEAD: Atraumatic. Normocephalic. EYES: Pupils equal and round. No scleral icterus. No injection or drainage. ENT: No nasal bleeding or discharge. Mucous membranes pink and moist. NECK: Trachea midline. No JVD. CARDIOVASCULAR: Regular rate and rhythm. No murmur appreciated. RESPIRATORY: No accessory muscle use. Clear to auscultation. Breath sounds equal bilaterally. GASTROINTESTINAL: Abdomen soft, non-tender, nondistended. Hepatic and splenic margins not palpable. MUSCULOSKELETAL: No obvious deformities. No clubbing. No cyanosis. No edema. NEUROLOGICAL: Awake and alert. No obvious cranial nerve deficits. Motor grossly within normal limits. Normal speech. PSYCHIATRIC: Appropriate mood and affect; insight and judgment normal. Data Data Last Documented VS Vital Signs Date Time Temp Pulse Resp B/P Pulse Ox O2 Delivery O2 Flow Rate FiO2 06/29/16 02:59 90 16 117/70 98 Room Air 06/29/16 00:08 98.1 Orders C-Reactive Protein (Crp) (06/29/16 00:42) Complete Blood Count With Diff (06/29/16 00:42) Comprehensive Metabolic Panel (06/29/16 00:42) Retic Count (06/29/16 00:42) Urinalysis - C+S If Indicated (06/29/16 00:42) Chest, Single Ap (06/29/16 00:42) Ecg Monitoring (06/29/16 00:42) Iv Access Insert/Monitor (06/29/16 00:42) Oximetry (06/29/16 00:42) Ondansetron Inj (Zofran Inj) (06/29/16 00:45) Sodium Chloride 0.9% Flush (Ns Flush) (06/29/16 00:45) Sodium Chlor 0.9% 1000 Ml Inj (Ns 1000 M (06/29/16 00:42) Hydromorphone Pf Inj (Dilaudid Pf Inj) (06/29/16 00:45) Diphenhydramine Inj (Benadryl Inj) (06/29/16 00:45) Ed Urine Pregnancytest Poc (06/29/16 00:42) Labs Laboratory Tests Test 06/29/16 06/29/16 01:10 03:00 White Blood Count 10.1 TH/MM3 Corrected White Blood Count 9.6 TH/MM3 Red Blood Count 2.45 MIL/MM3 Hemoglobin 8.3 GM/DL Hematocrit 24.4 % Mean Corpuscular Volume 99.6 FL Mean Corpuscular Hemoglobin 33.8 PG Mean Corpuscular Hemoglobin 33.9 % Concent Red Cell Distribution Width 23.9 % Platelet Count 324 TH/MM3 Mean Platelet Volume 8.3 FL Neutrophils (%) (Auto) % CBC Comment AUTO DIFF Differential Total Cells 100 Counted Neutrophils % (Manual) 34 % Lymphocytes % 42 % Monocytes % 16 % Eosinophils % 6 % Basophils % 2 % Neutrophils # (Manual) 3.3 TH/MM3 Nucleated Red Blood Cells 5 /100 WBC Differential Comment FINAL DIFF MANUAL Platelet Estimate NORMAL Platelet Morphology Comment CLUMPED Sickle Cells 2+ [place] Bodies PRESENT Reticulocyte Count 4.7 % Absolute Reticulocyte Count 110.9 MIL/L Sodium Level 143 MEQ/L Potassium Level 4.1 MEQ/L Chloride Level 108 MEQ/L Carbon Dioxide Level 25.7 MEQ/L Anion Gap 9 MEQ/L Blood Urea Nitrogen 13 MG/DL Creatinine 1.00 MG/DL Estimat Glomerular Filtration 77 ML/MIN Rate Random Glucose 114 MG/DL Calcium Level 8.6 MG/DL Total Bilirubin 1.5 MG/DL Aspartate Amino Transf 37 U/L (AST/SGOT) Alanine Aminotransferase 25 U/L (ALT/SGPT) Alkaline Phosphatase 109 U/L C-Reactive Protein 0.96 MG/DL Total Protein 8.2 GM/DL Albumin 3.6 GM/DL Urine Color YELLOW Urine Turbidity SLIGHT Urine pH 6.0 Urine Specific [place] 1.010 Urine Protein NEG mg/dL Urine Glucose (UA) NEG mg/dL Urine Ketones NEG mg/dL Urine Occult Blood NEG Urine Nitrite NEG Urine Bilirubin NEG Urine Leukocyte Esterase NEG Urine WBC 0-2 /hpf Urine Squamous Epithelial 6-8 /hpf Cells Urine Amorphous Sediment SMALL Urine Bacteria OCC /hpf Urine Mucus OCC /lpf Microscopic Urinalysis Comment CULT NOT INDICATED MDM Medical Decision Making Medical Screen Exam Complete: Yes Emergency Medical Condition: Yes Medical Record Reviewed: Yes Interpretation(s) Laboratory Tests Test 06/29/16 06/29/16 01:10 03:00 Red Blood Count 2.45 MIL/MM3 (4.00-5.30) Hemoglobin 8.3 GM/DL (11.6-15.3) Hematocrit 24.4 % (35.0-46.0) Red Cell Distribution Width 23.9 % (11.6-17.2) Monocytes % 16 % (0-8) Eosinophils % 6 % (0-4) Nucleated Red Blood Cells 5 /100 WBC (0-0) Platelet Morphology Comment CLUMPED (NORMAL) Sickle Cells 2+ (NORMAL) Reticulocyte Count 4.7 % (0.4-3.0) Chloride Level 108 MEQ/L (98-107) Estimat Glomerular Filtration 77 ML/MIN (>89) Rate Random Glucose 114 MG/DL (74-106) Total Bilirubin 1.5 MG/DL (0.2-1.0) C-Reactive Protein 0.96 MG/DL (0.00-0.30) Urine Squamous Epithelial 6-8 /hpf (0-5) Cells Urine Bacteria OCC /hpf (NONE) Last 24 hours Impressions Chest X-Ray 06/29/16 0042 Signed Impressions: Service Date/Time: Wednesday, June 29, 2016 01:40 - CONCLUSION: No acute disease. Montez Medina Jr., MD Differential Diagnosis Pain all over the body, nausea, lightheadednesssickle cell crisis versus dehydration versus metabolic issues versus symptomatic anemia Narrative Course Patient was given IV fluids, Dilaudid, Zofran and Benadryl in the ER. Lab work was ordered and did not show any significant lateral light abnormalities, signs of dehydration, or significant acute anemia. H&H is hemoglobin appears to be baseline. On reevaluation at 3:30 AM, the patient reports that her pain is now a 5 out of 10. Vital signs are stable in the ER. At this point, my plan would be to release the patient with follow-up to [facility] and primary care physician. Return for any worsening in symptoms as necessary. The plan has been discussed with her and she states understanding. Diagnosis Primary Impression: Sickle cell anemia with crisis Med/Other Pt SpecificInfo: Prescription(s) given Scripts Hydrocodone-Acetaminophen (Lortab)5-325 Mg Tab1-2 Tab PO Q6H PRN (PAIN) #20 TAB Ref 0 Prov:Junior Becerra MD 06/29/16 Disposition: DISCHARGE HOME Condition: Stable Junior Becerra MD Jun 29, 2016 00:55
[2016-06-29] MEDS: SODIUM CHLORIDE 0.9% FLUSH 10 ML FLUSH IVF PRN ×2 (01:10→04:27)
[2016-06-29 01:30] LABS: HEMATOCRIT 24.4 % (35.0-46.0); MEAN CELL VOLUME 99.6 FL (80.0-100.0); MEAN CORPUSCULAR HEMOGLOBIN 33.8 PG (27.0-34.0); MEAN CORPUSCULAR HGB CONC 33.9 % (32.0-36.0); PLATELET COUNT 324 TH/MM3 (150-450); RED BLOOD COUNT 2.45 MIL/MM3 (4.00-5.30); RED CELL DISTRIBUTION WIDTH 23.9 % (11.6-17.2); WHITE BLOOD COUNT 10.1 TH/MM3 (4.0-11.0)
[2016-06-29 01:37] LABS: CHLORIDE 108 MEQ/L (98-107); POTASSIUM 4.1 MEQ/L (3.5-5.1); SODIUM (NA) 143 MEQ/L (136-145)
[2016-06-29 01:40] LABS: ANION GAP 9 MEQ/L (5-15); BICARBONATE 25.7 MEQ/L (21.0-32.0)
[2016-06-29 01:41] LABS: BLOOD UREA NITROGEN 13 MG/DL (7-18)
[2016-06-29 01:43] LABS: ALT (GPT) 25 U/L (10-53); HEMO FLAGS AUTO DIFF
[2016-06-29 01:44] LABS: AST (GOT) 37 U/L (15-37); GLOMERULAR FILTRATION RATE 77 ML/MIN (>89)
[2016-06-29 01:45] VITALS: BP 99/62; PULSE 92; RESP 17; O2SAT 97
[2016-06-29 01:45] LABS: TOTAL BILIRUBIN ADULT 1.5 MG/DL (0.2-1.0)
[2016-06-29 01:46] LABS: ALKALINE PHOSPHATASE 109 U/L (45-117)
--- NOTE | 2016-06-29 02:01 | RADHPO ---
EXAM DATE/TIME: 06/29/2016 01:40 [facility] COMPARISON: CHEST SINGLE AP, April 18, 2016, 11:36. INDICATIONS : Cough and congestion. MEDICAL HISTORY : Sickle Cell disease. SURGICAL HISTORY : Fusion, thoracic. ENCOUNTER: Initial ACUITY: 1 day PAIN SCORE: 8/10 LOCATION: Bilateral chest FINDINGS: A single view of the chest demonstrates the lungs to be symmetrically aerated without evidence of mas s, infiltrate or effusion. The cardiomediastinal contours are unremarkable. Osseous structures are intact. Orthopedic hardware involving the thoracic spine. CONCLUSION: No acute disease. Montez Medina Jr., MD on June 29, 2016 at 2:00 Board Certified Radiologist. This report was verified electronically.
[2016-06-29 02:33] LABS: BASOPHILS 2 % (0-2); CORRECTED NUCLEATED RBC 5 /100 WBC (0-0); CORRECTED WBC 9.6 TH/MM3 (4.0-11.0); EOSINOPHILS 6 % (0-4); HOWELL-JOLLY BODIES PRESENT (NONE SEEN); NEUTROPHIL # MANUAL DIFF 3.3 TH/MM3 (1.8-7.7); POLYS (SEG NEUTROPHILS) 34 % (16-70); SICKLE CELLS 2+ (NORMAL); WBC DIFF SAMPLE 100
[2016-06-29 02:34] LABS: PLATELET ESTIMATE SMEAR NORMAL (NORMAL); PLATELET MORPHOLOGY CLUMPED (NORMAL); SCAN/DIFF FINAL DIFF MANUAL
[2016-06-29 02:58] LABS: RETIC % 4.7 % (0.4-3.0)
[2016-06-29 02:59] VITALS: BP 117/70; PULSE 90; RESP 16; O2SAT 98
[2016-06-29 02:59] LABS: REVIEW FLAG FINAL
[2016-06-29] MEDS ORDERED: AMLO5TAB2 PO (03:03)
[2016-06-29 03:16] LABS: BLOOD, URINE NEG (NEG); GLUCOSE,URINE NEG (NEG); KETONE, URINE NEG (NEG); NITRITE,URINE NEG (NEG)
[2016-06-29 03:24] LABS: URINE COLOR YELLOW (YELLW/STRAW)
[2016-06-29 03:26] LABS: BACTERIA, URINE OCC /hpf; COMMENT (UR) CULT NOT INDICATED; CULTURE IF INDICATED CULT NOT INDICATED; MUCUS URINE OCC /lpf (OCC); WBC, URINE 0-2 /hpf (0-5)
[2016-06-29] MEDS ORDERED: HYDR-3533 PO (03:45)
[2016-06-29] MEDS ORDERED: HEPARIN SODIUM - IV 10,000 UNITS/10 ML VIAL IV ONE (04:00)
[2016-06-29 04:34] VITALS: BP 110/67
== END 2016-06-29 04:37 | disposition home or self-care (01) ==
LOC: PHED 23:45
DX: D57.00 Hb-SS disease with crisis, unspecified (principal); R11.0 Nausea; R42 Dizziness and giddiness; I10 Essential (primary) hypertension; Z79.82 Long term (current) use of aspirin; Z86.2 Personal history of diseases of the blood and blood-forming organs and certain disorders involving the immune mechanism; Z86.79 Personal history of other diseases of the circulatory system; Z86.718 Personal history of other venous thrombosis and embolism; Z87.39 Personal history of other diseases of the musculoskeletal system and connective tissue; Z86.69 Personal history of other diseases of the nervous system and sense organs
CPT/HCPCS: 71010; 80053; 81001; 84703; 85007; 85027; 85044; 86140; 96361; 96374; 96375; 99284; J1170; J1200; J1642; J2405; J7030

== ENCOUNTER 2016-07-06 14:18 | Emergency (ER) | payer MEDICARE, OTHER ==
[~2016-07-06] VITALS: Ht 165.1 cm; Wt 64.0 kg
[~2016-07-06 14:18] MED LIST changes: +AMLO5TAB2 PO; +HYDR-3533 PO
[2016-07-06 14:30] VITALS: BP 118/81; PULSE 104; RESP 16; TEMP 99.1; O2SAT 94
[2016-07-06] MEDS ORDERED: SODIUM CHLOR 0.9% 1000 ML INJ 1,000 ML IV ONE (14:39)
[2016-07-06] MEDS ORDERED: diphenhydrAMINE HCL 50 MG/ML VIAL IV ONE (14:45)
[2016-07-06] MEDS ORDERED: HYDROmorphone HCL PF 2 MG/ML VIAL IVS ONE (14:45)
[2016-07-06] MEDS ORDERED: SODIUM CHLORIDE 0.9% FLUSH 10 ML FLUSH IVF PRN (14:45)
--- NOTE | 2016-07-06 14:50 | PD ---
HPI . Sickle cell crisis Chief Complaint: Sickle Cell Time Seen by Provider: 14:39 Travel History International Travel<30 days: No Contact w/Intl Traveler<30days: No Traveled to known affect area: No History of Present Illness HPI Patient presents with a sickle cell crisis which started yesterday. She states that this is her usual pain. She is hurting in her back and chest and arms. She denies any fever or shortness of breath. She states that she has taken a few doses of Dilaudid. She had 4 mg orally at about 3 AM and another 4 mg orally at about 9 AM. She reports no relief of her pain. She describes her pain is severe. PFSH Past Medical History Hx Anticoagulant Therapy: Yes (asa 81mg) Anemia: Yes (SICKLE CELL) Arthritis: No Asthma: No Autoimmune Disease: No Blood Disorders: Yes (SICKLE CELL) Anxiety: No Depression: No Heart Rhythm Problems: No Cancer: No Cardiovascular Problems: Yes (htn on meds) High Cholesterol: No Chemotherapy: No Chest Pain: No Congestive Heart Failure: No COPD: No Cerebrovascular Accident: No Diabetes: No Diminished Hearing: No Deep Vein Thrombosis: Yes (HX LEFT ARM ) Endocrine: No Gastrointestinal Disorders: No GERD: No Glaucoma: No Genitourinary: No Headaches: Yes Hepatitis: No Hiatal Hernia: No Heparin Induced Thrombocytopen: No Hypertension: Yes Immune Disorder: Yes (SICKLE CELL) Implanted Vascular Access Dvce: Yes (POWER INFUSAPORT) Kidney Stones: No Musculoskeletal: Yes (SCOLIOSIS) Neurologic: No Psychiatric: No Reproductive: No Respiratory: No Immunizations Current: Yes Migraines: Yes Pneumonia: Yes Radiation Therapy: No Renal Failure: No Seizures: No Sickle Cell Disease: Yes Sleep Apnea: No Thyroid Disease: No Ulcer: No Tetanus Vaccination: < 5 Years Influenza Vaccination: Yes PNEUMOCCOCAL Vaccine (Year): 2008 ?: Not LMP: 07/03/16 Menopausal: No : 5 Para: 2 Miscarriage: 3 : 0 Ovarian Cysts: Yes Past Surgical History Abdominal Surgery: Yes (CHOLECYSTECTOMY) AICD: No Arteriovenous Shunt: No Body Medical Devices: CATIA IN UPPER BACK, INFUSAPORT RIGHT CHEST: 2014 Cardiac Surgery: No Cholecystectomy: Yes Ear Surgery: No Endocrine Surgery: No Eye Surgery: No Genitourinary Surgery: No Gynecologic Surgery: No Hysterectomy: No Insulin Pump: No Joint Replacement: Yes (R HIP REPLACEMENT 2012, L HIP 2014) Neurologic Surgery: No Oral Surgery: No Pacemaker: No Thoracic Surgery: No Other Surgery: Yes (INSERTION OF INFUSA PORTX 3) Social History Alcohol Use: Yes (occass. wine) Tobacco Use: No Substance Use: No Allergies-Medications (Allergen,Severity, Reaction): Coded Allergies: Toradol (Verified Allergy, Severe, Itching, 07/06/16) Morphine (Verified Allergy, Mild, Swelling, 07/06/16) Methadone (Verified Adverse Reaction, Severe, DEPRESSION, 07/06/16) Motrin (Verified Adverse Reaction, Severe, Urinary Freq (Inc/Dec), 07/06/16 ) RENAL FAILURE *MDRO Multi-Drug Resistant Organism (Verified Adverse Reaction, Unknown, ) VRE urine 2013 VRE screens NEGATIVE - 11/12/14 and 12/18/14 CLEARED PER INFECTION CONTROL Reported Meds & Prescriptions Reported Meds & Active Scripts Active Reported Amlodipine (Amlodipine Besylate) 5 Mg Tab 5 Mg PO DAILY Dilaudid (Hydromorphone HCl) 4 Mg Tab 4 Mg PO Q4H PRN Hydroxyurea 500 Mg Cap 500 Mg PO TID Folate (Folic Acid) 1 Mg Tab 1 Mg PO DAILY Jadenu (Deferasirox) 90 Mg Tab 1 Tab PO DAILY@1600 Aspirin 81 Mg Tabdr 81 Mg PO DAILY Review of Systems Except as stated in HPI: all other systems reviewed are Neg General / Constitutional: No: Fever, Chills Cardiovascular: Positive: Chest Pain or Discomfort Respiratory: No: Cough, Shortness of Breath Gastrointestinal: No: Nausea, Vomiting, Diarrhea Genitourinary: No: Urgency, Frequency, Dysuria Musculoskeletal: Positive: Myalgias, Arthralgias Physical Exam Narrative GENERAL: Awake and alert and in no acute distress. SKIN: Warm and dry. HEAD: Atraumatic. Normocephalic. EYES: Pupils equal and round. Positive scleral icterus. ENT: No nasal bleeding or discharge. Mucous membranes pink and moist. NECK: Trachea midline. Neck is supple. CARDIOVASCULAR: Regular rate and rhythm. Systolic ejection murmur. RESPIRATORY: No accessory muscle use. Lungs are clear with full air movement throughout. GASTROINTESTINAL: Abdomen soft, non-tender, nondistended. MUSCULOSKELETAL: No obvious deformities. No edema. NEUROLOGICAL: Awake and alert. No obvious cranial nerve deficits. Motor grossly within normal limits. Normal speech. PSYCHIATRIC: Appropriate mood and affect; insight and judgment normal. Data Data Last Documented VS Vital Signs Date Time Temp Pulse Resp B/P Pulse Ox O2 Delivery O2 Flow Rate FiO2 07/06/16 15:29 96 18 113/67 100 Room Air 07/06/16 14:30 99.1 Orders Basic Metabolic Panel (Bmp) (07/06/16 14:39) Complete Blood Count With Diff (07/06/16 14:39) Retic Count (07/06/16 14:39) Ecg Monitoring (07/06/16 14:39) Iv Access Insert/Monitor (07/06/16 14:39) Oximetry (07/06/16 14:39) Hydromorphone Pf Inj (Dilaudid Pf Inj) (07/06/16 14:45) Sodium Chloride 0.9% Flush (Ns Flush) (07/06/16 14:45) Sodium Chlor 0.9% 1000 Ml Inj (Ns 1000 M (07/06/16 14:39) Diphenhydramine Inj (Benadryl Inj) (07/06/16 14:45) Electrocardiogram (07/06/16 ) Chest, Pa & Lat (07/06/16 14:45) Hepatic Functional Panel (07/06/16 14:45) Labs Laboratory Tests Test 07/06/16 14:08 White Blood Count 9.4 TH/MM3 Red Blood Count 2.31 MIL/MM3 Hemoglobin 7.7 GM/DL Hematocrit 22.9 % Mean Corpuscular Volume 99.0 FL Mean Corpuscular Hemoglobin 33.2 PG Mean Corpuscular Hemoglobin 33.5 % Concent Red Cell Distribution Width 23.9 % Platelet Count 278 TH/MM3 Mean Platelet Volume 7.8 FL Neutrophils (%) (Auto) % Lymphocytes (%) (Auto) % Monocytes (%) (Auto) % Eosinophils (%) (Auto) % Basophils (%) (Auto) % Neutrophils # (Auto) TH/MM3 Lymphocytes # (Auto) TH/MM3 Monocytes # (Auto) TH/MM3 Eosinophils # (Auto) TH/MM3 Basophils # (Auto) TH/MM3 CBC Comment AUTO DIFF Sodium Level 141 MEQ/L Potassium Level 4.4 MEQ/L Chloride Level 108 MEQ/L Carbon Dioxide Level 25.0 MEQ/L Anion Gap 8 MEQ/L Blood Urea Nitrogen 15 MG/DL Creatinine 1.10 MG/DL Estimat Glomerular Filtration 69 ML/MIN Rate Random Glucose 90 MG/DL Calcium Level 8.6 MG/DL Total Bilirubin 1.6 MG/DL Direct Bilirubin 0.4 MG/DL Indirect Bilirubin 1.2 MG/DL Aspartate Amino Transf 48 U/L (AST/SGOT) Alanine Aminotransferase 29 U/L (ALT/SGPT) Alkaline Phosphatase 111 U/L Total Protein 8.2 GM/DL Albumin 3.7 GM/DL [facility] Medical Decision Making Medical Screen Exam Complete: Yes Emergency Medical Condition: Yes Interpretation(s) EKG shows a sinus rhythm with no ST segment elevation or depression. Differential Diagnosis My differential diagnosis of sickle cell disease includes but is not limited to vaso-occlusive crisis, acute chest syndrome, occult infection, electrolyte disturbance, drug-seeking behavior. Narrative Course Patient presents complaining with her usual sickle cell crisis. Ordered IV fluids and IV Dilaudid. Routine labs will be done along with an EKG and a chest x-ray. CBC & BMP Diagram 07/06/16 14:08 Last Impressions Chest X-Ray 07/06/16 1445 Signed Impressions: Service Date/Time: Wednesday, July 06, 2016 14:47 - CONCLUSION: No acute disease Dejon Gasca MD This patient is now sound asleep. I will discharge her to home. Diagnosis Primary Impression: Sickle cell anemia with crisis Patient Instructions: General Instructions, Sickle Cell Crisis (DC) Disposition: 01 DISCHARGE HOME Condition: Stable Jennifer Sandoval MD Jul 06, 2016 14:50
[2016-07-06 15:09] LABS: HEMATOCRIT 22.9 % (35.0-46.0); MEAN CORPUSCULAR HEMOGLOBIN 33.2 PG (27.0-34.0); MEAN CORPUSCULAR HGB CONC 33.5 % (32.0-36.0); PLATELET COUNT 278 TH/MM3 (150-450); RED BLOOD COUNT 2.31 MIL/MM3 (4.00-5.30); RED CELL DISTRIBUTION WIDTH 23.9 % (11.6-17.2); WHITE BLOOD COUNT 9.4 TH/MM3 (4.0-11.0)
[2016-07-06 15:12] VITALS: O2SAT 94
[2016-07-06 15:15] LABS: HEMO FLAGS AUTO DIFF
[2016-07-06 15:16] LABS: POTASSIUM 4.4 MEQ/L (3.5-5.1)
[2016-07-06 15:25] LABS: INDIRECT BILIRUBIN 1.2 MG/DL (0.0-0.8); TOTAL BILIRUBIN ADULT 1.6 MG/DL (0.2-1.0)
[2016-07-06 15:29] VITALS: BP 113/67; PULSE 96; RESP 18; O2SAT 100
--- NOTE | 2016-07-06 15:37 | RADHPO ---
EXAM DATE/TIME: 07/06/2016 14:47 [facility] COMPARISON: CHEST SINGLE AP, June 29, 2016, 1:40. INDICATIONS : Chest pain. MEDICAL HISTORY : Sickle Cell disease. SURGICAL HISTORY : Thoracic spine, Infusaport ENCOUNTER: Initial ACUITY: 2 days PAIN SCORE: 7/10 LOCATION: Bilateral chest FINDINGS: Right chest [id number] is stable and satisfactory position and is accessed. Lungs are focally tricia r. No pleural effusion is evident. Cardiac contours are stable. Thoracic spine fixation hardware is a gain noted. Mild kyphoscoliosis is unchanged. CONCLUSION: No acute disease Dejon Gasca MD on July 06, 2016 at 15:33 Board Certified Radiologist. This report was verified electronically.
[2016-07-06 15:51] LABS: BANDS 1 % (0-6); CORRECTED NUCLEATED RBC 5 /100 WBC (0-0); EOSINOPHILS 2 % (0-4); KERATOCYTES 1+ (NORMAL); NEUTROPHIL # MANUAL DIFF 4.4 TH/MM3 (1.8-7.7); POLYS (SEG NEUTROPHILS) 48 % (16-70); SICKLE CELLS 3+ (NORMAL); TEARDROP RBCS 1+ (NORMAL); WBC DIFF SAMPLE 100
[2016-07-06 15:52] LABS: HOWELL-JOLLY BODIES PRESENT (NONE SEEN); STOMATOCYTES 1+ (NORMAL)
[2016-07-06 15:53] LABS: PLATELET ESTIMATE SMEAR NORMAL (NORMAL); PLATELET MORPHOLOGY NORMAL (NORMAL); SCAN/DIFF FINAL DIFF MANUAL; TARGET CELLS 1+ (NORMAL)
[2016-07-06 16:00] VITALS: BP 119/69; PULSE 94; RESP 18; O2SAT 98
[2016-07-06 16:55] LABS: RETIC % 8.2 % (0.4-3.0); REVIEW FLAG FINAL
--- NOTE | 2016-07-07 11:47 | EKG ---
Date Performed: 07/06/2016 Time Performed: 14:55:46 PTAGE: 35 years EKG: Sinus rhythm Normal ECG PREVIOUS TRACING : 02/16/2016 19.24 DOCTOR: Bob Carolina Interpretating Date/Time 07/07/2016 11:41:41
== END 2016-07-06 16:28 | disposition home or self-care (01) ==
LOC: PHED 14:18
DX: D57.00 Hb-SS disease with crisis, unspecified (principal); I10 Essential (primary) hypertension; Z79.82 Long term (current) use of aspirin; Z96.641 Presence of right artificial hip joint
CPT/HCPCS: 71020; 80048; 80076; 85007; 85027; 85044; 93005; 96374; 96375; 99284; J1170; J1200; J1642; J7030

== ENCOUNTER 2016-07-07 06:38 | Inpatient (IN) | payer MEDICARE, OTHER ==
[~2016-07-07] VITALS: Ht 165.1 cm; Wt 64.7 kg
[2016-07-07] VITALS (13 sets, daily range): BP systolic 106–151; BP diastolic 63–94; PULSE 72–107; RESP 14–20; TEMP 96–99; O2SAT 92–100
[~2016-07-07 06:38] MED LIST changes: -HYDR-3533 PO
[2016-07-07] MEDS ORDERED: SODIUM CHLOR 0.9% 1000 ML INJ 1,000 ML IV ONE (07:08)
[2016-07-07] MEDS ORDERED: diphenhydrAMINE HCL 50 MG/ML VIAL IV ONE (07:15)
[2016-07-07] MEDS ORDERED: SODIUM CHLORIDE 0.9% FLUSH 10 ML FLUSH IVF PRN ×2 (07:15)
[2016-07-07] MEDS ORDERED: ONDANSETRON HCL 4 MG/2 ML VIAL IVP ONE (07:15)
[2016-07-07] MEDS ORDERED: HYDROmorphone HCL PF 1 MG/ML VIAL IVS ONE (07:15)
[2016-07-07 08:01] LABS: HEMO FLAGS AUTO DIFF; MEAN CELL VOLUME 97.4 FL (80.0-100.0); MEAN CORPUSCULAR HEMOGLOBIN 33.7 PG (27.0-34.0); MEAN CORPUSCULAR HGB CONC 34.6 % (32.0-36.0); PLATELET COUNT 269 TH/MM3 (150-450); RED BLOOD COUNT 2.16 MIL/MM3 (4.00-5.30); RED CELL DISTRIBUTION WIDTH 24.5 % (11.6-17.2); WHITE BLOOD COUNT 10.3 TH/MM3 (4.0-11.0)
[2016-07-07 08:22] LABS: POTASSIUM 4.5 MEQ/L (3.5-5.1)
[2016-07-07 08:25] LABS: BICARBONATE 24.7 MEQ/L (21.0-32.0)
--- NOTE | 2016-07-07 08:34 | PD ---
HPI Chief Complaint: Sickle Cell Time Seen by Provider: 06:56 Travel History International Travel<30 days: No Contact w/Intl Traveler<30days: No Traveled to known affect area: No History of Present Illness HPI 35-year-old female with a history of sickle cell disease arrives complaining of sickle cell disease type pain crisis. She has her typical syndrome which includes chest pain and back pain. She's had no fever. Normally menstruation causes her sickle cell crises and the same is this scenario now. The patient follows with Dr. Shea and reports compliance with folate and hydroxyurea. Lortab at home was insufficient to manage her pain. She's had no fever. PFSH Past Medical History Hx Anticoagulant Therapy: Yes (asa 81mg) Anemia: Yes (SICKLE CELL) Arthritis: No Asthma: No Autoimmune Disease: No Blood Disorders: Yes (SICKLE CELL) Anxiety: No Depression: No Heart Rhythm Problems: No Cancer: No Cardiovascular Problems: Yes (htn on meds) High Cholesterol: No Chemotherapy: No Chest Pain: No Congestive Heart Failure: No COPD: No Cerebrovascular Accident: No Diabetes: No Diminished Hearing: No Deep Vein Thrombosis: Yes (HX LEFT ARM ) Endocrine: No Gastrointestinal Disorders: No GERD: No Glaucoma: No Genitourinary: No Headaches: Yes Hepatitis: No Hiatal Hernia: No Heparin Induced Thrombocytopen: No Hypertension: Yes Immune Disorder: Yes (SICKLE CELL) Implanted Vascular Access Dvce: Yes (POWER INFUSAPORT) Kidney Stones: No Musculoskeletal: Yes (SCOLIOSIS) Neurologic: No Psychiatric: No Reproductive: No Respiratory: No Immunizations Current: Yes Migraines: Yes Pneumonia: Yes Radiation Therapy: No Renal Failure: No Seizures: No Sickle Cell Disease: Yes Sleep Apnea: No Thyroid Disease: No Ulcer: No PNEUMOCCOCAL Vaccine (Year): 2008 ?: Not Menopausal: No : 5 Para: 2 Miscarriage: 3 : 0 Ovarian Cysts: Yes Past Surgical History Abdominal Surgery: Yes (CHOLECYSTECTOMY) AICD: No Arteriovenous Shunt: No Body Medical Devices: CATIA IN UPPER BACK, INFUSAPORT RIGHT CHEST: 2014 Cardiac Surgery: No Cholecystectomy: Yes Ear Surgery: No Endocrine Surgery: No Eye Surgery: No Genitourinary Surgery: No Gynecologic Surgery: No Hysterectomy: No Insulin Pump: No Joint Replacement: Yes (R HIP REPLACEMENT 2011, L HIP 2014) Neurologic Surgery: No Oral Surgery: No Pacemaker: No Thoracic Surgery: No Other Surgery: Yes (INSERTION OF INFUSA PORTX 3) Social History Alcohol Use: Yes (occass. wine) Tobacco Use: No Substance Use: No Allergies-Medications (Allergen,Severity, Reaction): Coded Allergies: Toradol (Verified Allergy, Severe, Itching, 07/06/16) Morphine (Verified Allergy, Mild, Swelling, 07/06/16) Methadone (Verified Adverse Reaction, Severe, DEPRESSION, 07/06/16) Motrin (Verified Adverse Reaction, Severe, Urinary Freq (Inc/Dec), 07/06/16 ) RENAL FAILURE *MDRO Multi-Drug Resistant Organism (Verified Adverse Reaction, Unknown, ) VRE urine 2013 VRE screens NEGATIVE - 11/12/14 and 12/18/14 CLEARED PER INFECTION CONTROL Reported Meds & Prescriptions Reported Meds & Active Scripts Active Reported Amlodipine (Amlodipine Besylate) 5 Mg Tab 5 Mg PO DAILY Dilaudid (Hydromorphone HCl) 4 Mg Tab 4 Mg PO Q4H PRN Hydroxyurea 500 Mg Cap 500 Mg PO TID Folate (Folic Acid) 1 Mg Tab 1 Mg PO DAILY Jadenu (Deferasirox) 90 Mg Tab 1 Tab PO DAILY@1600 Aspirin 81 Mg Tabdr 81 Mg PO DAILY Review of Systems Except as stated in HPI: all other systems reviewed are Neg General / Constitutional: No: Fever Physical Exam Narrative GENERAL: 35 yo F, WNWD, moderate distress SKIN: Warm and dry. HEAD: Atraumatic. Normocephalic. EYES: Pupils equal and round. No scleral icterus. No injection or drainage. ENT: No nasal bleeding or discharge. Mucous membranes pink and moist. NECK: Trachea midline. No JVD. CARDIOVASCULAR: Regular rate and rhythm. RESPIRATORY: No accessory muscle use. Clear to auscultation. Breath sounds equal bilaterally. GASTROINTESTINAL: Abdomen soft, non-tender, nondistended. Hepatic and splenic margins not palpable. MUSCULOSKELETAL: Extremities without clubbing, cyanosis, or edema. No obvious deformities. NEUROLOGICAL: Awake and alert. No obvious cranial nerve deficits. Motor grossly within normal limits. Normal speech. PSYCHIATRIC: Appropriate mood and affect; insight and judgment normal. Data Data Last Documented VS Vital Signs Date Time Temp Pulse Resp B/P Pulse Ox O2 Delivery O2 Flow Rate FiO2 07/07/16 07:58 98 Room Air 07/07/16 06:48 98.7 107 18 122/85 VS reviewed Orders Basic Metabolic Panel (Bmp) (07/07/16 07:08) Complete Blood Count With Diff (07/07/16 07:08) Ecg Monitoring (07/07/16 07:08) Iv Access Insert/Monitor (07/07/16 07:08) Oximetry (07/07/16 07:08) Ondansetron Inj (Zofran Inj) (07/07/16 07:15) Sodium Chloride 0.9% Flush (Ns Flush) (07/07/16 07:15) Sodium Chlor 0.9% 1000 Ml Inj (Ns 1000 M (07/07/16 07:08) Hydromorphone Pf Inj (Dilaudid Pf Inj) (07/07/16 07:15) Diphenhydramine Inj (Benadryl Inj) (07/07/16 07:15) Heparin Central Flush (Heparin Central F (07/07/16 07:15) Sodium Chloride 0.9% Flush (Ns Flush) (07/07/16 07:15) Heparin Central Flush (Heparin Central F (07/07/16 07:15) Hydromorphone Pf Inj (Dilaudid Pf Inj) (07/07/16 08:45) Labs Laboratory Tests Test 07/07/16 07:55 White Blood Count 10.3 TH/MM3 Corrected White Blood Count 9.8 TH/MM3 Red Blood Count 2.16 MIL/MM3 Hemoglobin 7.3 GM/DL Hematocrit 21.0 % Mean Corpuscular Volume 97.4 FL Mean Corpuscular Hemoglobin 33.7 PG Mean Corpuscular Hemoglobin 34.6 % Concent Red Cell Distribution Width 24.5 % Platelet Count 269 TH/MM3 Mean Platelet Volume 7.6 FL CBC Comment AUTO DIFF Differential Total Cells 100 Counted Neutrophils % (Manual) 50 % Lymphocytes % 34 % Monocytes % 10 % Eosinophils % 5 % Neutrophils # (Manual) 5.0 TH/MM3 Metamyelocytes 1 % Nucleated Red Blood Cells 5 /100 WBC Differential Comment FINAL DIFF MANUAL Platelet Estimate NORMAL Platelet Morphology Comment NORMAL Sickle Cells 3+ Target Cells 3+ Ovalocytes 1+ Keratocytes OCC Sodium Level 143 MEQ/L Potassium Level 4.5 MEQ/L Chloride Level 110 MEQ/L Carbon Dioxide Level 24.7 MEQ/L Anion Gap 8 MEQ/L Blood Urea Nitrogen 12 MG/DL Creatinine 1.00 MG/DL Estimat Glomerular Filtration 77 ML/MIN Rate Random Glucose 93 MG/DL Calcium Level 8.5 MG/DL [facility] Medical Decision Making Medical Screen Exam Complete: Yes Emergency Medical Condition: Yes Medical Record Reviewed: Yes Differential Diagnosis anemia, sickle cell crisis, renal disease Narrative Course CBC & BMP Diagram 07/07/16 07:55 BUN 12 Creatinine 1.0 Glucose 93 Hgb dropped approx 1 point in 1 week. Admission for IVF, pain control and CBC. D/w Dr Whelan. Diagnosis Primary Impression: Sickle cell anemia with crisis Admitting Information Admitting Physician Requests: Observation Vik Sanchez MD Jul 07, 2016 08:34
[2016-07-07 08:36] LABS: CORRECTED NUCLEATED RBC 5 /100 WBC (0-0); CORRECTED WBC 9.8 TH/MM3 (4.0-11.0); EOSINOPHILS 5 % (0-4); METAMYELOCYTES 1 % (0-1); POLYS (SEG NEUTROPHILS) 50 % (16-70); WBC DIFF SAMPLE 100
[2016-07-07 08:37] LABS: OVALOCYTES 1+ (NORMAL); PLATELET ESTIMATE SMEAR NORMAL (NORMAL); PLATELET MORPHOLOGY NORMAL (NORMAL); SCAN/DIFF FINAL DIFF MANUAL; SICKLE CELLS 3+ (NORMAL); TARGET CELLS 3+ (NORMAL)
[2016-07-07 08:38] LABS: KERATOCYTES OCC (NORMAL)
[2016-07-07] MEDS ORDERED: HYDROmorphone HCL PF 1 MG/ML VIAL IV PUSH ONE (08:45)
[2016-07-07] MEDS: SODIUM CHLOR 0.9% 1000 ML INJ 1,000 ML IV SCH ×2 (09:03→17:08)
[2016-07-07] MEDS ORDERED: SODIUM CHLOR 0.9% 250 ML INJ 250 ML IV ONE (09:15)
[2016-07-07] MEDS ORDERED: diphenhydrAMINE HCL 25 MG CAP PO PRN ×3 (09:15→20:45)
[2016-07-07] MEDS ORDERED: HYDROmorphone HCL PF 1 MG/ML VIAL IV PRN (09:15)
[2016-07-07] MEDS ORDERED: SODIUM CHLORIDE 0.9% FLUSH 10 ML FLUSH IV FLUSH PRN (09:15)
[2016-07-07] MEDS ORDERED: ACETAMINOPHEN 325 MG TAB PO PRN ×2 (09:15→15:15)
[2016-07-07] MEDS: oxyCODONE HCL 20 MG CONTROLLED RELEASE TAB PO SCH ×2 (11:35→21:47)
[2016-07-07] MEDS: ENOXAPARIN SODIUM 40 MG/0.4 ML SYRINGE SQ SCH (11:36)
--- NOTE | 2016-07-07 12:42 | HHI.HP ---
[facility] Lilo Shea MD Admission Diagnosis Sickle Cell Crisis/Anemia Diagnoses: Travel History International Travel<30 Days: No Contact w/Intl Traveler <30 Da: No Traveled to Known Affected Are: No History of Present Illness 35-year-old female history of sickle cell anemia with multiple pain crisis, who follows with urology Dr. Shea. She presents with a 2 day history of constant sharp chest pain consistent with previous episodes of sickle cell pain crisis, as well as sharp constant low back pain, both nonradiating and consistent with previous sickle cell pain crisis. She denies any shortness of breath. She denies any fevers or chills. Denies any nausea or vomiting. Denies any constipation or diarrhea. He does report her menses starting 3 days ago, with heavier than usual bleeding. 4 pads per day area her last menses was 6 months ago. She has not been taking any control in the past. Review of Systems Performed and negative except for history of present illness and past medical history. 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 Indwelling hardware. Reported Medications Reported Meds & Active Scripts Active Reported Amlodipine (Amlodipine Besylate) 5 Mg Tab 5 Mg PO DAILY Dilaudid (Hydromorphone HCl) 4 Mg Tab 4 Mg PO Q4H PRN Hydroxyurea 500 Mg Cap 500 Mg PO TID Folate (Folic Acid) 1 Mg Tab 1 Mg PO DAILY Jadenu (Deferasirox) 90 Mg Tab 1 Tab PO DAILY@1600 Aspirin 81 Mg Tabdr 81 Mg PO DAILY Allergies: Coded Allergies: Toradol (Verified Allergy, Severe, Itching, 07/06/16) Morphine (Verified Allergy, Mild, Swelling, 07/06/16) Methadone (Verified Adverse Reaction, Severe, DEPRESSION, 07/06/16) Motrin (Verified Adverse Reaction, Severe, Urinary Freq (Inc/Dec), 07/06/16 ) RENAL FAILURE *MDRO Multi-Drug Resistant Organism (Verified Adverse Reaction, Unknown, ) VRE urine 2014 VRE screens NEGATIVE - 11/12/14 and 12/18/14 CLEARED PER INFECTION CONTROL Family History mother with hypertension. Father with diabetes and hypertension. No heart disease. Both parents with sickle cell trait. Social History Nonsmoker. Nondrinker. Denies illicit drugs. Physical Exam Vital Signs Vital Signs Date Time Temp Pulse Resp B/P Pulse Ox O2 Delivery O2 Flow Rate FiO2 07/07/16 12:19 97.1 105 14 118/72 93 07/07/16 09:09 106 18 114/72 98 Room Air 07/07/16 07:58 98 Room Air 07/07/16 06:48 98.7 107 18 122/85 93 Physical Exam GENERAL: This is a well-nourished, well-developed patient, in no apparent distress. Alert and oriented 4. SKIN: No rashes, ecchymoses or lesions. Cool and dry. HEAD: Atraumatic. Normocephalic. No temporal or scalp tenderness. EYES: Pupils equal round and reactive. Extraocular motions intact. No scleral icterus. No injection or drainage. ENT: Nose without bleeding, purulent drainage or septal hematoma. Throat without erythema, tonsillar hypertrophy or exudate. Uvula midline. Airway patent. NECK: Trachea midline. No JVD or lymphadenopathy. Supple, nontender, no meningeal signs. CARDIOVASCULAR: Regular rate and rhythm without murmurs, gallops, or rubs. RESPIRATORY: Clear to auscultation. Breath sounds equal bilaterally. No wheezes , rales, or rhonchi. GASTROINTESTINAL: Abdomen soft, non-tender, nondistended. No hepato-splenomegaly , or palpable masses. No guarding. MUSCULOSKELETAL: Extremities without clubbing, cyanosis, or edema. No joint tenderness, effusion, or edema noted. No calf tenderness. Negative Homans sign bilaterally. NEUROLOGICAL: Awake and alert. Cranial nerves II through XII intact. Motor and sensory grossly within normal limits. Five out of 5 muscle strength in all muscle groups. Normal speech. Laboratory Laboratory Tests Test 07/07/16 07/07/16 07:55 09:39 White Blood Count 10.3 Corrected White Blood Count 9.8 Red Blood Count 2.16 Hemoglobin 7.3 Hematocrit 21.0 Mean Corpuscular Volume 97.4 Mean Corpuscular Hemoglobin 33.7 Mean Corpuscular Hemoglobin 34.6 Concent Red Cell Distribution Width 24.5 Platelet Count 269 Mean Platelet Volume 7.6 CBC Comment AUTO DIFF Differential Total Cells 100 Counted Neutrophils % (Manual) 50 Lymphocytes % 34 Monocytes % 10 Eosinophils % 5 Neutrophils # (Manual) 5.0 Metamyelocytes 1 Nucleated Red Blood Cells 5 Differential Comment FINAL DIFF MANUAL Platelet Estimate NORMAL Platelet Morphology Comment NORMAL Sickle Cells 3+ Target Cells 3+ Ovalocytes 1+ Keratocytes OCC Sodium Level 143 Potassium Level 4.5 Chloride Level 110 Carbon Dioxide Level 24.7 Anion Gap 8 Blood Urea Nitrogen 12 Creatinine 1.00 Estimat Glomerular Filtration 77 Rate Random Glucose 93 Calcium Level 8.5 Blood Type AB POSITIVE Antibody Screen NEGATIVE Result Diagram: 07/07/16 0755 07/07/16 075 Assessment and Plan Assessment and Plan //Sickle cell pain crisis //Sickle cell anemia. Hemoglobin 7.3 on admission her baseline 8.3. Acute on chronic. -With complaint of typical sharp chest pain, as well as low back pain consistent with previous pain crisis. No shortness of breath. -Anemia worsened by menses. - Chest x-ray on 07/06 with no acute findings. -No signs of infection. -Transfused 2 units RBCs. 4 L nasal cannula oxygen continuous. -Add OxyContin for basal pain control. Dilaudid IV when necessary. -Continue aspirin. Hold Hydrea in the setting of acute exacerbation. Continue deferasirox. Continue Pardo. -Consult primary industrial engineering analyst for assistance. //Hypertension. Blood pressure acceptable. Hold amlodipine for now. Pain to monitor. //Menorrhagia. This appears to be improving. This may have triggered her pain crisis. He has no abdominal cramping. Patient should follow-up with primary care to evaluate for possible treatment. Prophylaxis. She received Lovenox on admission. No bleeding, except for menses. Will be held due to menses. Code Status Full code Discussed Condition With Patient, nurse. Physician Certification 2 Midnight Certification Type: Admission for Inpatient Services Order for Inpatient Services The services are ordered in accordance with Medicare regulations or non- Medicare payer requirements, as applicable. In the case of services not specified as inpatient-only, they are appropriately provided as inpatient services in accordance with the 2-midnight benchmark. Estimated LOS (days): 2 days is the estimated time the patient will need to remain in the hospital, assuming treatment plan goals are met and no additional complications. Post-Hospital Plan: Not yet determined Dewey Whelan MD Jul 07, 2016 12:42
[2016-07-07] MEDS: HYDROmorphone HCL PF 2 MG/ML VIAL IV PRN ×3 (13:15→22:33)
[2016-07-07] MEDS ORDERED: DEFERASIROX PO SCH (16:00)
[2016-07-07] MEDS: SODIUM CHLORIDE 0.9% FLUSH 10 ML FLUSH IV FLUSH SCH (21:47)
[2016-07-08] VITALS: BP 110/77; PULSE 96; RESP 18; RESP 20; TEMP 96.8; O2SAT 100
[2016-07-08] MEDS: HYDROmorphone HCL PF 2 MG/ML VIAL IV PRN ×3 (02:40→10:19)
--- NOTE | 2016-07-08 04:56 | MB ---
cc: MAZIN WHELAN MD, RUBY ANNE E. M.D. DATE OF CONSULTATION: 07/07/2016 DATE OF : [address] Mazin Whelan CHIEF COMPLAINT [address]. Whelan requests a consultation for Ms. Flores regarding sickle-cell disease, admitted for acute vaso-occlusive pain crisis. HISTORY OF PRESENT ILLNESS Ms. Flores is a 35-year-old woman, a well-known patient with a history of sickle-cell disease and frequent vaso-occlusive pain crises. She is seen regularly at the hematology clinic for treatment of her sickle-cell disease complicated by iron overload. She has had avascular necrosis and both hips have been replaced. She has chronic anemia requiring blood transfusions. Her anemia is worsened by her menses. She has been amenorrheic for about six months. She describes her menses starting recently and having been significant and heavy than her previous. She suspects that her menses has precipitated her acute vaso-occlusive pain crisis this time. She called the hematology clinic the day prior to admission. She was unable to be seen in clinic. She was unable to manage her vaso-occlusive pain symptoms at home. She presented to the emergency room and was subsequently admitted. She was seen by Dr. Whelan. Her hemoglobin on admission was 7.3. She had typical crisis pain with sharp chest pain and low back pain. No obvious sign of infection. She was offered two units of packed red cells which was being administered at the time of the consultation. Hematology/Oncology is consulted. REVIEW OF SYSTEMS She denies any fevers, chills or night sweats. She has no sick contact. Her pain is well-controlled with the regimen prescribed by Dr. Whelan. She is accompanied by her father who keeps a davalos at the bedside. She denies any shortness of breath. She is ambulatory. She denies any vision changes. She feels that this is her typical vaso-occlusive pain symptoms. She feels better post the first unit of blood. The rest of her review of systems is negative. PAST MEDICAL HISTORY 1. Sickle-cell disease. 2. Menorrhagia. 3. Frequent vaso-occlusive pain crisis. 4. Chronic pain. 5. Iron overload. 6. Avascular necrosis of both hips. 7. Scoliosis. 8. Multiple venous thromboembolic events. 9. Chronic renal insufficiency. PAST SURGICAL HISTORY 1. Right hip replacement 2010. 2. Left hip replacement 2013. 3. [id number] placement. 4. Cholecystectomy. 5. Back surgery. FAMILY HISTORY Significant for both parents with trait. Significant family history of diabetes. SOCIAL HISTORY She is engaged. Her fiance has had been supportive. She denies any tobacco, alcohol or illicit drug use. ALLERGIES TORADOL. MEDICATIONS Current medications: 1. Enoxaparin. 2. Hydromorphone. 3. OxyContin. PHYSICAL EXAMINATION VITAL SIGNS: Temperature 96.6, heart rate 94, respiratory rate 18, blood pressure 106/69. GENERAL: Ms. Flores is a well-developed, well-nourished pleasant woman in no acute distress. She seems to be rested and comfortable. HEENT: Her pupils are round and reactive to light and accommodation. Sclera is mildly icteric. Oropharynx is clear. NECK: Supple. LUNGS: Clear to auscultation. CARDIOVASCULAR: Normal rate and rhythm. BACK: Scoliosis of the back is unchnged. ABDOMEN: Benign. EXTREMITIES: Lower extremity with no edema. NEUROLOGIC: Nonfocal. LABORATORY DATA Significant for hemoglobin of 7.3, bilirubin 1.6, iron overload with last ferritin 3989. ASSESSMENT AND PLAN Ms. Flores is a 35-year-old woman, well-known patient with sickle-cell disease and frequent vaso-occlusive pain crises. She is admitted with worsened anemia, typical vaso-occlusive pain crisis symptoms and menorrhagia. Menorrhagia precipitated her symptoms. She feels better post her first unit of packed red cells. I concur with Dr. Whelan for transfusion. We discussed the concern with transfusions in that her iron overload is worsened, however, in light of her acute symptoms it seems reasonable to give her two units of packed red cells. Her pain is well-controlled on p.r.n. pain medication as part of the long-acting pain medicine. She does not typically have pain in between her crises symptoms. Her p.r.n. Dilaudid use is minimal. She does have frequent vaso-occlusive pain crises and visits to the emergency room. She has tried to avoid hospitalization. We have managed to control her symptoms on an outpatient basis but was not able to do so this Wednesday. We discussed plans to continue Hydrea. She is on iron chelation therapy. We have deferred IV iron chelation at the moment, continuing with oral iron chelation. She is encouraged compliance with the iron chelation. We discussed follow-up upon discharge in the hematology clinic. Her questions were answered to her satisfaction. MD SUPA Sparrow/BT /11:36 PM /4:39 AM
[2016-07-08] MEDS: SODIUM CHLOR 0.9% 1000 ML INJ 1,000 ML IV SCH ×2 (06:37→18:05)
[2016-07-08 06:56] LABS: HEMATOCRIT 25.9 % (35.0-46.0); MEAN CELL VOLUME 94.4 FL (80.0-100.0); MEAN CORPUSCULAR HEMOGLOBIN 32.6 PG (27.0-34.0); MEAN CORPUSCULAR HGB CONC 34.5 % (32.0-36.0); PLATELET COUNT 240 TH/MM3 (150-450); RED BLOOD COUNT 2.75 MIL/MM3 (4.00-5.30); RED CELL DISTRIBUTION WIDTH 21.3 % (11.6-17.2); WHITE BLOOD COUNT 9.8 TH/MM3 (4.0-11.0)
[2016-07-08 07:13] LABS: HEMO FLAGS AUTO DIFF
[2016-07-08 07:45] LABS: CORRECTED NUCLEATED RBC 4 /100 WBC (0-0); EOSINOPHILS 7 % (0-4); KERATOCYTES 1+ (NORMAL); METAMYELOCYTES 1 % (0-1); NEUTROPHIL # MANUAL DIFF 3.7 TH/MM3 (1.8-7.7); OVALOCYTES 1+ (NORMAL); POLYS (SEG NEUTROPHILS) 37 % (16-70); SICKLE CELLS 3+ (NORMAL); TARGET CELLS 2+ (NORMAL); WBC DIFF SAMPLE 100
[2016-07-08 07:46] LABS: PLATELET ESTIMATE SMEAR NORMAL (NORMAL); PLATELET MORPHOLOGY NORMAL (NORMAL); SCAN/DIFF FINAL DIFF MANUAL
[2016-07-08 08:00] VITALS: BP 145/97; PULSE 113; RESP 21; TEMP 97.1; O2SAT 93
[2016-07-08] MEDS: oxyCODONE HCL 20 MG CONTROLLED RELEASE TAB PO SCH (08:52)
[2016-07-08] MEDS: FOLIC ACID 1 MG TAB PO SCH (08:53)
[2016-07-08] MEDS: ENOXAPARIN SODIUM 40 MG/0.4 ML SYRINGE SQ SCH (08:53)
[2016-07-08] MEDS: ASPIRIN EC 81 MG TABEC PO SCH (08:53)
[2016-07-08] MEDS: SODIUM CHLORIDE 0.9% FLUSH 10 ML FLUSH IV FLUSH SCH (09:00)
[2016-07-08] MEDS ORDERED: OXYC-259 PO (10:50)
[2016-07-08 12:00] VITALS: BP 134/89; PULSE 96; RESP 20; TEMP 96.6; O2SAT 92
[2016-07-08] MEDS ORDERED: ONDANSETRON HCL 4 MG/2 ML VIAL IV PUSH PRN (14:00)
--- NOTE | 2016-07-08 14:03 | HHI.PR ---
Subjective Remarks Patient seen this morning. Says she feels much better. Pain under control. No chest pain or shortness of breath. Denies any nausea or vomiting. Denies constipation Objective Vital Signs Date Time Temp Pulse Resp B/P Pulse Ox O2 Delivery O2 Flow Rate FiO2 07/08/16 12:00 96.6 96 20 134/89 92 07/08/16 08:00 97.1 113 21 145/97 93 07/08/16 00:00 96.8 96 18 110/77 100 07/08/16 00:00 96.8 96 20 110/77 100 07/07/16 21:39 96.6 94 18 106/69 97 07/07/16 20:50 96.0 84 18 126/93 07/07/16 20:00 96.4 95 20 122/90 100 07/07/16 19:23 92 Nasal Cannula 2.00 07/07/16 17:51 97.3 77 16 125/63 95 07/07/16 17:33 99.0 86 16 151/85 100 07/07/16 16:11 97.4 94 17 121/94 95 07/07/16 15:49 93 Nasal Cannula 3.00 07/07/16 15:24 07/07/16 15:16 97.2 72 17 116/89 95 I/O 07/07/16 07/07/16 07/07/16 07/08/16 07/08/16 07/08/16 07:00 15:00 23:00 07:00 15:00 23:00 Intake Total 1000 ml 860 ml 2250 ml Balance 1000 ml 860 ml 2250 ml Intake Oral 860 ml 600 ml IV Total 1000 ml 1150 ml Packed Cells 500 ml # Voids 3 1 # Bowel Movements 0 0 Result Diagram: 07/08/16 0530 07/07/16 0755 Objective Remarks GENERAL: Sitting up in bed. Appears comfortable. Alert and oriented 3. SKIN: Warm and dry. HEAD: Normocephalic. EYES: No scleral icterus. No injection or drainage. NECK: Supple, trachea midline. No JVD. CARDIOVASCULAR: Regular rate and rhythm without murmurs, gallops, or rubs. RESPIRATORY: Breath sounds equal bilaterally. No accessory muscle use. GASTROINTESTINAL: Abdomen soft, non-tender, nondistended. MUSCULOSKELETAL: No cyanosis, or edema. BACK: Nontender without obvious deformity. No CVA tenderness. A/P Assessment and Plan //Sickle cell pain crisis //Sickle cell anemia. Hemoglobin 7.3 on admission her baseline 8.3. Acute on chronic. -With complaint of typical sharp chest pain, as well as low back pain consistent with previous pain crisis. No shortness of breath. -Anemia worsened by menses. - Chest x-ray on 07/06 with no acute findings. -No signs of infection. -Transfused 2 units RBCs. 4 L nasal cannula oxygen continuous. -Add OxyContin for basal pain control. Dilaudid IV when necessary. -Continue aspirin. Hold Hydrea in the setting of acute exacerbation. Continue deferasirox. Continue folate -Appreciate hematology consultation. -Plan follow-up as outpatient with hematology. //Hypertension. Blood pressure acceptable. Can restart amlodipine as outpatient. //Menorrhagia. This appears to be improving. This may have triggered her pain crisis. He has no abdominal cramping. Patient should follow-up with primary care to evaluate for possible treatment. Prophylaxis. She received Lovenox on admission. No bleeding, except for menses. Will be held due to menses. Dewey Whelan MD Jul 08, 2016 14:03
[2016-07-08] MEDS: HYDROXYUREA 500 MG CAP PO SCH (14:15)
[2016-07-08 16:00] VITALS: BP 146/94; PULSE 94; RESP 20; TEMP 98.3; O2SAT 100
[2016-07-08] MEDS ORDERED: DEFERASIROX 180 MG PO SCH (16:00)
[2016-07-08] MEDS: HYDROmorphone HCL 4 MG TAB PO PRN (18:04)
[2016-07-08 20:00] VITALS: BP 140/94; PULSE 90; RESP 18; TEMP 96.9; O2SAT 100
[2016-07-08] MEDS ORDERED: ACETAMINOPHEN 325 MG TAB PO PRN (22:15)
[2016-07-08] MEDS ORDERED: DOCUSATE SODIUM 50 MG/SENNA 8.6 MG TAB PO SCH (22:15)
[2016-07-08] MEDS ORDERED: CALCIUM CARBONATE 500 MG CHEWABLE TAB CHEW PRN (22:15)
[2016-07-08] MEDS ORDERED: cloNIDine HCL 0.1 MG TAB PO PRN (22:15)
[2016-07-08] MEDS ORDERED: ALUMINUM/MAGNESIUM/SIMETH 30 ML CUP PO PRN (22:15)
[2016-07-08] MEDS ORDERED: MAGNESIUM HYDROXIDE SUSP 30 ML CUP PO PRN (22:15)
[2016-07-08] MEDS ORDERED: DOCUSATE SODIUM 100 MG CAP PO PRN (22:15)
[2016-07-09] VITALS: BP 142/89; PULSE 88; RESP 18; TEMP 97.1; O2SAT 100
[2016-07-09] MEDS: SODIUM CHLOR 0.9% 1000 ML INJ 1,000 ML IV SCH ×2 (01:40→09:33)
[2016-07-09] MEDS: oxyCODONE HCL 20 MG CONTROLLED RELEASE TAB PO SCH ×2 (01:42→09:27)
[2016-07-09 08:00] VITALS: BP 146/100; PULSE 97; RESP 20; TEMP 98.3; O2SAT 90
--- NOTE | 2016-07-09 08:32 | HHI.DCPOC ---
Discharge Care Plan Diagnosis: (1) Sickle cell anemia (2) Vaso-occlusive sickle cell crisis Your Health Problems Are: Difficulty with ADL Exercise Tolerance Goals to Promote Your Health * To prevent worsening of your condition and complications * To maintain your health at the optimal level Directions to Meet Your Goals Take your medications as prescribed Follow your dietary instruction Follow activity as directed Keep your appointments as scheduled Take your immunizations and boosters as scheduled If your symptoms worsen call your PCP, if no PCP go to Urgent Care Center or Emergency Room Smoking is Dangerous to Your Health. Avoid second hand smoke Call the 24-hour hour crisis hotline for domestic abuse at Larry Barry MD Jul 09, 2016 08:32
[2016-07-09] MEDS: SODIUM CHLORIDE 0.9% FLUSH 10 ML FLUSH IV FLUSH SCH (09:00)
[2016-07-09] MEDS ORDERED: amLODIPine BESYLATE 5 MG TAB PO SCH (09:00)
[2016-07-09] MEDS: ASPIRIN EC 81 MG TABEC PO SCH (09:28)
[2016-07-09] MEDS: FOLIC ACID 1 MG TAB PO SCH (09:28)
[2016-07-09] MEDS: HYDROXYUREA 500 MG CAP PO SCH (09:31)
[2016-07-09] MEDS: ENOXAPARIN SODIUM 40 MG/0.4 ML SYRINGE SQ SCH (09:31)
[2016-07-09 09:49] VITALS: BP 140/95; PULSE 89
--- NOTE | 2016-07-09 10:07 | HHI.DS ---
Discharge Summary Admission Date Jul 07, 2016 at 09:13 Discharge Date: Jul 09, 2016 Admitting Diagnosis Sickle Cell Crisis/Anemia (1) Sickle cell anemia with pain ICD Code: D57.00 Procedures None Brief History - From Admission 35-year-old female history of sickle cell anemia with multiple pain crisis, who follows with urology Dr. Shea. She presents with a 2 day history of constant sharp chest pain consistent with previous episodes of sickle cell pain crisis, as well as sharp constant low back pain, both nonradiating and consistent with previous sickle cell pain crisis. She denies any shortness of breath. She denies any fevers or chills. Denies any nausea or vomiting. Denies any constipation or diarrhea. He does report her menses starting 3 days ago, with heavier than usual bleeding. 4 pads per day area her last menses was 6 months ago. She has not been taking any control in the past. CBC/BMP: 07/08/16 0530 07/07/16 0755 Significant Findings Laboratory Tests Test 07/07/16 07/08/16 07:55 05:30 Red Blood Count 2.16 MIL/MM3 2.75 MIL/MM3 (4.00-5.30) (4.00-5.30) Hemoglobin 7.3 GM/DL 8.9 GM/DL (11.6-15.3) (11.6-15.3) Hematocrit 21.0 % 25.9 % (35.0-46.0) (35.0-46.0) Red Cell Distribution Width 24.5 % 21.3 % (11.6-17.2) (11.6-17.2) Monocytes % 10 % (0-8) Eosinophils % 5 % (0-4) 7 % (0-4) Nucleated Red Blood Cells 5 /100 WBC 4 /100 WBC (0-0) (0-0) Sickle Cells 3+ (NORMAL) 3+ (NORMAL) Target Cells 3+ (NORMAL) 2+ (NORMAL) Ovalocytes 1+ (NORMAL) 1+ (NORMAL) Keratocytes OCC (NORMAL) 1+ (NORMAL) Chloride Level 110 MEQ/L (98-107) Estimat Glomerular Filtration 77 ML/MIN (>89) Rate Lymphocytes % 48 % (9-44) PE at Discharge GENERAL: Sitting up in bed. Appears comfortable. Alert and oriented 3. SKIN: Warm and dry. HEAD: Normocephalic. EYES: No scleral icterus. No injection or drainage. NECK: Supple, trachea midline. No JVD. CARDIOVASCULAR: Regular rate and rhythm without murmurs, gallops, or rubs. RESPIRATORY: Breath sounds equal bilaterally. No accessory muscle use. GASTROINTESTINAL: Abdomen soft, non-tender, nondistended. MUSCULOSKELETAL: No cyanosis, or edema. BACK: Nontender without obvious deformity. No CVA tenderness. Hospital Course 35-year-old female who is well-known to the hospital due to recurrent sickle cell crisis. Patient just got off her menstruation with menorrhagia. Patient does have history whenever she does have her menstruation that it does her into a sickle cell event. Patient was initially evaluated in emergency department found to have anemia requiring transfusions. Patient did undergo transfusion of 2 units packed red blood cells. Patient was continued with pain control. Plans were for discharge home yesterday, however, patient had lunch he started developing nausea, vomiting. Discharge was held until patient was able to tolerate meals. Patient was able to eat dinner and breakfast this morning without any recurrent nausea or vomiting. Patient clinically stable at this time. Patient eager to go home. Will plan discharge accordingly. Pt Condition on Discharge: Good Discharge Disposition: Discharge Home Discharge Time: > 30 minutes Discharge Instructions DIET: Follow Instructions for: As Tolerated, No Restrictions Activities you can perform: Regular-No Restrictions Follow up Referrals: PCP Follow-up - 1 Week with Liol Shea MD Continued Medications: Amlodipine (Amlodipine) 5 Mg Tab 5 MG PO DAILY Blood Pressure Management #30 Ref 0 TAB Aspirin (Aspirin) 81 Mg Tabdr 81 MG PO DAILY TAB Deferasirox (Jadenu) 90 Mg Tab 1 TAB PO DAILY@1600 Folic Acid (Folate) 1 Mg Tab 1 MG PO DAILY Nutritional Supplement Ref 0 TAB Hydromorphone (Dilaudid) 4 Mg Tab 4 MG PO Q4H PRN Pain Management Ref 0 TAB Hydroxyurea (Hydroxyurea) 500 Mg Cap 500 MG PO TID Ref 0 CAP Additional Information Written by Sathya Conklin PA-C, acting as scribe for Dr. Barry on 07/09/16 at 745. The documentation accurately reflects the work and decisions performed face-to- face by Dr. aBrry on 07/09/16 at 745. This note was transcribed by scribe Sathya Conklin PA-C. I, Dr. Larry Barry personally performed the history, physical exam, and medical decision making; and confirmed the accuracy of the information in the transcribed note. Authenticated by Dr. Larry Barry on 07/09/16 at 19:47. Sathya Conklin Jul 09, 2016 10:07 Larry Barry MD Jul 09, 2016 19:47
[2016-07-09] MEDS: HYDROmorphone HCL 4 MG TAB PO PRN (10:35)
== END 2016-07-09 10:48 | disposition home or self-care (01) | DRG 812 ==
LOC: PHED 06:38 → PHEDA 09:13 → PH3B 09:57
PROVIDERS: ADMIT Internal Medicine; ATTEND Internal Medicine
PROC: 30253N1 (ICD-10-PCS; principal; 2016-07-07)
DX: D57.00 Hb-SS disease with crisis, unspecified (principal); M41.9 Scoliosis, unspecified; I12.9 Hypertensive chronic kidney disease with stage 1 through stage 4 chronic kidney disease, or unspecified chronic kidney disease; M54.5 Low back pain; R07.9 Chest pain, unspecified; N18.9 Chronic kidney disease, unspecified; N92.0 Excessive and frequent menstruation with regular cycle; Z96.643 Presence of artificial hip joint, bilateral
CPT/HCPCS: 36430; 71020; 80048; 80076; 85007; 85027; 85044; 85660; 86850; 86900; 86901; 86920; 93005; 94150; 96361; 96374; 96375; 96376; J1170; J1200; J1642; J1650; J2405; J7030; J7050; P9016

== ENCOUNTER 2016-07-31 07:29 | Inpatient (IN) | payer MEDICARE, OTHER ==
[~2016-07-31] VITALS: Ht 165.1 cm; Wt 68.8 kg
[2016-07-31] VITALS (8 sets, daily range): BP systolic 121–133; BP diastolic 76–94; PULSE 83–119; RESP 16–20; TEMP 96.8–98.4; O2SAT 92–99
[2016-07-31] MEDS ORDERED: SODIUM CHLOR 0.9% 1000 ML INJ 1,000 ML IV ONE (07:52)
--- NOTE | 2016-07-31 07:59 | PD ---
HPI Chief Complaint: Dizziness Time Seen by Provider: 07:52 Travel History International Travel<30 days: No Contact w/Intl Traveler<30days: No Traveled to known affect area: No History of Present Illness HPI 35-year-old female with history of sickle cell disease, presents to the ER today for 3 days history of body aches, chest discomfort, which she states feels like her sickle cell crises. However, she has been trying to treated home with Dilaudid and she states that she started to have lightheadedness, had a near syncopal episode yesterday. She denies any shortness of breath, fevers, coughing, or any other symptoms. Pain is currently rated a 9 out of 10. Modifying Factors: None Associated Signs & Symptoms: Body aches, chest pain, lightheadedness, near- syncope Risk Factors: Sickle cell disease PFSH Past Medical History Hx Anticoagulant Therapy: Yes (asa 81mg) Anemia: Yes (SICKLE CELL) Arthritis: No Asthma: No Autoimmune Disease: No Blood Disorders: Yes (SICKLE CELL) Anxiety: No Depression: No Heart Rhythm Problems: No Cancer: No Cardiovascular Problems: Yes (htn on meds) High Cholesterol: No Chemotherapy: No Chest Pain: No Congestive Heart Failure: No COPD: No Cerebrovascular Accident: No Diabetes: No Diminished Hearing: No Deep Vein Thrombosis: Yes (HX LEFT ARM ) Endocrine: No Gastrointestinal Disorders: No GERD: No Glaucoma: No Genitourinary: No Headaches: Yes Hepatitis: No Hiatal Hernia: No Heparin Induced Thrombocytopen: No Hypertension: Yes Immune Disorder: Yes (SICKLE CELL) Implanted Vascular Access Dvce: Yes (POWER INFUSAPORT) Kidney Stones: No Musculoskeletal: Yes (SCOLIOSIS) Neurologic: No Psychiatric: No Reproductive: No Respiratory: No Immunizations Current: Yes Migraines: Yes Pneumonia: Yes Radiation Therapy: No Renal Failure: No Seizures: No Sickle Cell Disease: Yes Sleep Apnea: No Thyroid Disease: No Ulcer: No Tetanus Vaccination: < 5 Years PNEUMOCCOCAL Vaccine (Year): 2008 ?: Not Menopausal: No : 5 Para: 2 Miscarriage: 3 : 0 Ovarian Cysts: Yes Past Surgical History Abdominal Surgery: Yes (CHOLECYSTECTOMY) AICD: No Arteriovenous Shunt: No Body Medical Devices: CATIA IN UPPER BACK, INFUSAPORT RIGHT CHEST: 2014 Cardiac Surgery: No Cholecystectomy: Yes Ear Surgery: No Endocrine Surgery: No Eye Surgery: No Genitourinary Surgery: No Gynecologic Surgery: No Hysterectomy: No Insulin Pump: No Joint Replacement: Yes (R HIP REPLACEMENT 2011, L HIP 2014) Neurologic Surgery: No Oral Surgery: No Pacemaker: No Thoracic Surgery: No Other Surgery: Yes (INSERTION OF INFUSA PORTX 3) Social History Alcohol Use: Yes (occass. wine) Tobacco Use: No Substance Use: No Allergies-Medications (Allergen,Severity, Reaction): Coded Allergies: Toradol (Verified Allergy, Severe, Itching, 07/31/16) Morphine (Verified Allergy, Mild, Swelling, 07/31/16) Methadone (Verified Adverse Reaction, Severe, DEPRESSION, 07/31/16) Motrin (Verified Adverse Reaction, Severe, Urinary Freq (Inc/Dec), 07/31/16) RENAL FAILURE *MDRO Multi-Drug Resistant Organism (Verified Adverse Reaction, Unknown, ) VRE urine 2013 VRE screens NEGATIVE - 11/12/14 and 12/18/14 CLEARED PER INFECTION CONTROL Reported Meds & Prescriptions Reported Meds & Active Scripts Active Reported Amlodipine (Amlodipine Besylate) 5 Mg Tab 5 Mg PO DAILY Dilaudid (Hydromorphone HCl) 4 Mg Tab 4 Mg PO Q4H PRN Hydroxyurea 500 Mg Cap 500 Mg PO TID Folate (Folic Acid) 1 Mg Tab 1 Mg PO DAILY Jadenu (Deferasirox) 90 Mg Tab 1 Tab PO DAILY@1600 Aspirin 81 Mg Tabdr 81 Mg PO DAILY Review of Systems Except as stated in HPI: all other systems reviewed are Neg Physical Exam Narrative GENERAL: Young -[place] female patient currently in mild distress. Awake and oriented 3. SKIN: Focused skin assessment warm/dry. HEAD: Atraumatic. Normocephalic. EYES: Pupils equal and round. No scleral icterus. No injection or drainage. ENT: No nasal bleeding or discharge. Mucous membranes pink and moist. NECK: Trachea midline. No JVD. CARDIOVASCULAR: Regular rate and rhythm. No murmur appreciated. RESPIRATORY: No accessory muscle use. Clear to auscultation. Breath sounds equal bilaterally. GASTROINTESTINAL: Abdomen soft, non-tender, nondistended. Hepatic and splenic margins not palpable. MUSCULOSKELETAL: No obvious deformities. No clubbing. No cyanosis. No edema. NEUROLOGICAL: Awake and alert. No obvious cranial nerve deficits. Motor grossly within normal limits. Normal speech. PSYCHIATRIC: Appropriate mood and affect; insight and judgment normal. Data Data Last Documented VS Vital Signs Date Time Temp Pulse Resp B/P Pulse Ox O2 Delivery O2 Flow Rate FiO2 07/31/16 08:24 16 92 Room Air 07/31/16 07:32 98.4 94 129/81 Orders C-Reactive Protein (Crp) (07/31/16 07:52) Complete Blood Count With Diff (07/31/16 07:52) Comprehensive Metabolic Panel (07/31/16 07:52) Retic Count (07/31/16 07:52) Urinalysis - C+S If Indicated (07/31/16 07:52) Chest, Single Ap (07/31/16 07:52) Ecg Monitoring (07/31/16 07:52) Iv Access Insert/Monitor (07/31/16 07:52) Oximetry (07/31/16 07:52) Ondansetron Inj (Zofran Inj) (07/31/16 08:00) Sodium Chloride 0.9% Flush (Ns Flush) (07/31/16 08:00) Sodium Chlor 0.9% 1000 Ml Inj (Ns 1000 M (07/31/16 07:52) Hydromorphone Pf Inj (Dilaudid Pf Inj) (07/31/16 08:00) Diphenhydramine Inj (Benadryl Inj) (07/31/16 08:00) Electrocardiogram (07/31/16 07:52) Ckmb (Isoenzyme) Profile (07/31/16 07:52) Troponin I (07/31/16 07:52) Ed Urine Pregnancytest Poc (07/31/16 07:52) Labs Laboratory Tests Test 07/31/16 08:10 White Blood Count 14.2 TH/MM3 Red Blood Count 2.60 MIL/MM3 Hemoglobin 8.2 GM/DL Hematocrit 24.0 % Mean Corpuscular Volume 92.3 FL Mean Corpuscular Hemoglobin 31.6 PG Mean Corpuscular Hemoglobin 34.2 % Concent Red Cell Distribution Width 21.3 % Platelet Count 275 TH/MM3 Mean Platelet Volume 8.5 FL Neutrophils (%) (Auto) 57.4 % Lymphocytes (%) (Auto) 26.9 % Monocytes (%) (Auto) 8.7 % Eosinophils (%) (Auto) 5.4 % Basophils (%) (Auto) 1.6 % Neutrophils # (Auto) 8.2 TH/MM3 Lymphocytes # (Auto) 3.8 TH/MM3 Monocytes # (Auto) 1.2 TH/MM3 Eosinophils # (Auto) 0.8 TH/MM3 Basophils # (Auto) 0.2 TH/MM3 CBC Comment AUTO DIFF Differential Comment AUTO DIFF CONFIRMED Sickle Cells 2+ Target Cells 2+ Ovalocytes 1+ Keratocytes OCC Reticulocyte Count 6.5 % Absolute Reticulocyte Count 165.8 MIL/L Urine Collection Type CLEAN CATCH Urine Color YELLOW Urine Turbidity CLEAR Urine pH 6.0 Urine Specific [place] 1.013 Urine Protein TRACE mg/dL Urine Glucose (UA) NEG mg/dL Urine Ketones NEG mg/dL Urine Occult Blood TRACE Urine Nitrite NEG Urine Bilirubin NEG Urine Leukocyte Esterase NEG Urine RBC 0-3 /hpf Urine WBC 0-2 /hpf Urine Squamous Epithelial > 8 /hpf Cells Urine Bacteria RARE /hpf Microscopic Urinalysis Comment CULT NOT INDICATED Urine Collection Time 08:10 Sodium Level 144 MEQ/L Potassium Level 4.2 MEQ/L Chloride Level 109 MEQ/L Carbon Dioxide Level 26.6 MEQ/L Anion Gap 8 MEQ/L Blood Urea Nitrogen 10 MG/DL Creatinine 1.00 MG/DL Estimat Glomerular Filtration 77 ML/MIN Rate Random Glucose 93 MG/DL Calcium Level 9.1 MG/DL Total Bilirubin 1.5 MG/DL Aspartate Amino Transf 36 U/L (AST/SGOT) Alanine Aminotransferase 27 U/L (ALT/SGPT) Alkaline Phosphatase 117 U/L Total Creatine Kinase 36 U/L Troponin I LESS THAN 0.02 NG/ML C-Reactive Protein 1.10 MG/DL Total Protein 8.0 GM/DL Albumin 3.5 GM/DL [facility] Medical Decision Making Medical Screen Exam Complete: Yes Emergency Medical Condition: Yes Medical Record Reviewed: Yes Interpretation(s) EKG shows NSR, no ST elevation or depression, and no arrhythmias. No significant T-wave inversions. CHEST X-RAY: No infiltrate, pneumothorax or mediastinal widening. Laboratory Tests Test 07/31/16 08:10 White Blood Count 14.2 TH/MM3 (4.0-11.0) Red Blood Count 2.60 MIL/MM3 (4.00-5.30) Hemoglobin 8.2 GM/DL (11.6-15.3) Hematocrit 24.0 % (35.0-46.0) Red Cell Distribution Width 21.3 % (11.6-17.2) Monocytes (%) (Auto) 8.7 % (0.0-8.0) Eosinophils (%) (Auto) 5.4 % (0.0-4.0) Neutrophils # (Auto) 8.2 TH/MM3 (1.8-7.7) Monocytes # (Auto) 1.2 TH/MM3 (0-0.9) Eosinophils # (Auto) 0.8 TH/MM3 (0-0.4) Sickle Cells 2+ (NORMAL) Target Cells 2+ (NORMAL) Ovalocytes 1+ (NORMAL) Keratocytes OCC (NORMAL) Reticulocyte Count 6.5 % (0.4-3.0) Absolute Reticulocyte Count 165.8 MIL/L (20.0-150.0) Urine Occult Blood TRACE (NEG) Urine Squamous Epithelial > 8 /hpf (0-5) Cells Urine Bacteria RARE /hpf (NONE) Chloride Level 109 MEQ/L (98-107) Estimat Glomerular Filtration 77 ML/MIN (>89) Rate Total Bilirubin 1.5 MG/DL (0.2-1.0) Troponin I LESS THAN 0.02 NG/ML (0.02-0.05) C-Reactive Protein 1.10 MG/DL (0.00-0.30) Differential Diagnosis Body aches, chest pains, near-syncope, lightheadednesssymptomatic anemia versus electrolyte abnormalities versus dysrhythmias versus ACS versus pneumonia versus acute chest syndrome Narrative Course Patient was given IV fluids, Dilaudid, Benadryl, and Zofran in the ER. Lab work shows hemoglobin of 8 which is likely to be baseline for this sickle cell patient. White blood cell of 14, likely secondary to do marginalization and. Her left foot panel is essentially unremarkable. Vital signs are stable in the ER. EKG did not show any signs of ST changes or dysrhythmias. On reevaluation at 9:30 AM, she is still having 6 out of 10 pains. At this point, my plan would be to admit her for further evaluation and treatment. Case is discussed with Dr. Coley for admission. Diagnosis Primary Impression: Vaso-occlusive sickle cell crisis Additional Impression: Near syncope Admitting Information Admitting Physician Requests: Admit Junior Becerra MD July 31, 2016 07:59
[2016-07-31] MEDS ORDERED: HYDROmorphone HCL PF 1 MG/ML VIAL IVS ONE (08:00)
[2016-07-31] MEDS ORDERED: ONDANSETRON HCL 4 MG/2 ML VIAL IVP ONE (08:00)
[2016-07-31] MEDS ORDERED: SODIUM CHLORIDE 0.9% FLUSH 10 ML FLUSH IVF PRN (08:00)
[2016-07-31] MEDS ORDERED: diphenhydrAMINE HCL 50 MG/ML VIAL IV ONE (08:00)
[2016-07-31 08:26] LABS: AUTOMATED NEUTROPHIL # 8.2 TH/MM3 (1.8-7.7); BASOPHIL # 0.2 TH/MM3 (0-0.2); BASOPHIL % 1.6 % (0.0-2.0); EOSINOPHIL # 0.8 TH/MM3 (0-0.4); EOSINOPHIL % 5.4 % (0.0-4.0); LYMPH % 26.9 % (9.0-44.0); LYMPHOCYTE # 3.8 TH/MM3 (1.0-4.8); MEAN CELL VOLUME 92.3 FL (80.0-100.0); MEAN CORPUSCULAR HEMOGLOBIN 31.6 PG (27.0-34.0); MEAN CORPUSCULAR HGB CONC 34.2 % (32.0-36.0); MONO % 8.7 % (0.0-8.0); NEUT % 57.4 % (16.0-70.0); PLATELET COUNT 275 TH/MM3 (150-450); RED CELL DISTRIBUTION WIDTH 21.3 % (11.6-17.2); WHITE BLOOD COUNT 14.2 TH/MM3 (4.0-11.0)
[2016-07-31 08:33] LABS: BLOOD, URINE TRACE (NEG); CHLORIDE 109 MEQ/L (98-107); GLUCOSE,URINE NEG (NEG); HEMO FLAGS AUTO DIFF; KETONE, URINE NEG (NEG); NITRITE,URINE NEG (NEG); POTASSIUM 4.2 MEQ/L (3.5-5.1); SODIUM (NA) 144 MEQ/L (136-145)
[2016-07-31 08:37] LABS: ANION GAP 8 MEQ/L (5-15); BICARBONATE 26.6 MEQ/L (21.0-32.0); BLOOD UREA NITROGEN 10 MG/DL (7-18)
[2016-07-31 08:40] LABS: ALT (GPT) 27 U/L (10-53); AST (GOT) 36 U/L (15-37); GLOMERULAR FILTRATION RATE 77 ML/MIN (>89)
[2016-07-31 08:41] LABS: TOTAL BILIRUBIN ADULT 1.5 MG/DL (0.2-1.0)
[2016-07-31 08:42] LABS: BACTERIA, URINE RARE /hpf; COMMENT (UR) CULT NOT INDICATED; CULTURE IF INDICATED CULT NOT INDICATED; METHOD OF COLLECTION CLEAN CATCH; RBC, URINE 0-3 /hpf (0-3); SQUAMOUS EPITHELIAL CELL URINE > 8 /hpf (0-5); URINE COLOR YELLOW (YELLW/STRAW); WBC, URINE 0-2 /hpf (0-5)
[2016-07-31 08:43] LABS: ALKALINE PHOSPHATASE 117 U/L (45-117)
[2016-07-31 08:44] LABS: CREATINE KINASE 36 U/L (26-192)
[2016-07-31 09:07] LABS: RETIC % 6.5 % (0.4-3.0); REVIEW FLAG FINAL
[2016-07-31 09:13] LABS: KERATOCYTES OCC (NORMAL); OVALOCYTES 1+ (NORMAL); SCAN/DIFF AUTO DIFF CONFIRMED; SICKLE CELLS 2+ (NORMAL); TARGET CELLS 2+ (NORMAL)
--- NOTE | 2016-07-31 09:29 | RADHPO ---
EXAM DATE/TIME: 07/31/2016 08:46 [facility] COMPARISON: CHEST SINGLE AP, June 29, 2016, 1:40. INDICATIONS : Patient states she is having a sickle cell crisis since yesterday. MEDICAL HISTORY : Hypertension. Sickle Cell disease. SURGICAL HISTORY : Cholecystectomy. ENCOUNTER: Initial ACUITY: 1 day PAIN SCORE: 8/10 LOCATION: Bilateral Chest and Back. FINDINGS: A single view of the chest demonstrates the lungs to be symmetrically aerated without evidence of mas s, infiltrate or effusion. The cardiomediastinal contours are unremarkable. Osseous structures are intact. A scoliotic curvature with concavity towards the patient's left within the lower thoracic reg ion. Orthopedic screws and vertical stabilizing bar within the thoracic spine. Power port overlying t he right chest. CONCLUSION: No acute disease. Montez Medina Jr., MD on July 31, 2016 at 9:27 Board Certified Radiologist. This report was verified electronically.
[2016-07-31] MEDS ORDERED: SODIUM CHLORIDE 0.9% FLUSH 10 ML FLUSH IV FLUSH PRN (10:15)
[2016-07-31] MEDS ORDERED: ACETAMINOPHEN 325 MG TAB PO PRN (10:15)
[2016-07-31] MEDS ORDERED: HYDROmorphone HCL PF 1 MG/ML VIAL IV PUSH PRN (10:30)
[2016-07-31] MEDS: SODIUM CHLOR 0.9% 1000 ML INJ 1,000 ML IV SCH (10:44)
[2016-07-31] MEDS: ENOXAPARIN SODIUM 40 MG/0.4 ML SYRINGE SQ SCH (10:45)
[2016-07-31] MEDS ORDERED: HYDROmorphone HCL PF 1 MG/ML VIAL IV PUSH ONE (11:00)
--- NOTE | 2016-07-31 14:40 | HHI.HP ---
HPI Service [facility] Hospitalists Primary Care Physician Lilo Shea MD Admission Diagnosis chest pain/near-syncope/sickle cell crisis Diagnoses: (1) SIRS (systemic inflammatory response syndrome) Diagnosis: Principal (2) Sickle cell anemia with crisis Diagnosis: Principal Chief Complaint: "sickle cell crisis" Travel History International Travel<30 Days: No Contact w/Intl Traveler <30 Da: No Traveled to Known Affected Are: No Sepsis Criteria SIRS Criteria (2 or more): Heart rate over 90, WBC > 12887, < 4000 or > 10% bands Criteria Outcome: Meets SIRS criteria History of Present Illness 35-year-old -Irish female with sickle cell disease, hypertension, CKD , DVT well known to [place] presents with complaint of "sickle cell crisis". She states she started having pain everywhere yesterday and was also dizzy and presyncopal. She admits to chest pain with the crisis. She again had symptoms today. She took her home Dilaudid without relief. She denies any fevers or chills, cough or shortness of breath, nausea or vomiting, dysuria, or diarrhea. 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 Review of Systems Except as stated in HPI: all other systems reviewed are Neg Past Family Social History Past Medical History Sickle cell disease Avascular necrosis HTN Chronic kidney disease due to blood transfusion Iron overload DVT left arm Scoliosis Migraines because of medications. Has infusaport. Past Surgical History Right total hip replacement 2011 Left hip replacement 2014 cholecystectomy 2002 scoliosis surgery at age 15 (joey placed) [id number] R chest Reported Medications Reported Amlodipine (Amlodipine Besylate) 5 Mg Tab 5 Mg PO DAILY Dilaudid (Hydromorphone HCl) 4 Mg Tab 4 Mg PO Q4H PRN Hydroxyurea 500 Mg Cap 500 Mg PO TID Folate (Folic Acid) 1 Mg Tab 1 Mg PO DAILY Jadenu (Deferasirox) 90 Mg Tab 1 Tab PO DAILY@1600 Aspirin 81 Mg Tabdr 81 Mg PO DAILY Allergies: Coded Allergies: Toradol (Verified Allergy, Severe, Itching, 07/31/16) Morphine (Verified Allergy, Mild, Swelling, 07/31/16) Methadone (Verified Adverse Reaction, Severe, DEPRESSION, 07/31/16) Motrin (Verified Adverse Reaction, Severe, Urinary Freq (Inc/Dec), 07/31/16) RENAL FAILURE *MDRO Multi-Drug Resistant Organism (Verified Adverse Reaction, Unknown, ) VRE urine 2014 VRE screens NEGATIVE - 11/12/14 and 12/18/14 CLEARED PER INFECTION CONTROL Family History Mother: hypertension, sickle cell trait Father: diabetes, hypertension, and sickle cell trait Social History Denies cigarette smoking. Denies alcohol use. Physical Exam Vital Signs Vital Signs Date Time Temp Pulse Resp B/P Pulse Ox O2 Delivery O2 Flow Rate FiO2 07/31/16 12:09 16 07/31/16 11:32 99 21 07/31/16 11:16 96.8 83 18 132/94 07/31/16 10:47 78 16 129/84 94 07/31/16 08:24 16 92 Room Air 07/31/16 07:36 16 95 Room Air 07/31/16 07:32 98.4 94 18 129/81 95 Physical Exam GENERAL: This is a well-nourished, well-developed patient, in no apparent distress. SKIN: Surgical scar over R upper back. No rashes, ecchymoses or lesions. Warm and dry. HEAD: Atraumatic. Normocephalic. EYES: Scleral icterus present. No injection or drainage. NECK: Trachea midline. No JVD. CARDIOVASCULAR: Regular rate and rhythm without murmurs, gallops, or rubs. RESPIRATORY: Clear to auscultation. Breath sounds equal bilaterally. No wheezes , rales, or rhonchi. GASTROINTESTINAL: Normoactive bowel sounds. Abdomen soft, non-tender, nondistended. No guarding. MUSCULOSKELETAL: No lower extremity edema or pain bilaterally. NEUROLOGICAL: Awake and alert. Motor grossly within normal limits. Normal speech. Laboratory Laboratory Tests Test 07/31/16 08:10 White Blood Count 14.2 Red Blood Count 2.60 Hemoglobin 8.2 Hematocrit 24.0 Mean Corpuscular Volume 92.3 Mean Corpuscular Hemoglobin 31.6 Mean Corpuscular Hemoglobin 34.2 Concent Red Cell Distribution Width 21.3 Platelet Count 275 Mean Platelet Volume 8.5 Neutrophils (%) (Auto) 57.4 Lymphocytes (%) (Auto) 26.9 Monocytes (%) (Auto) 8.7 Eosinophils (%) (Auto) 5.4 Basophils (%) (Auto) 1.6 Neutrophils # (Auto) 8.2 Lymphocytes # (Auto) 3.8 Monocytes # (Auto) 1.2 Eosinophils # (Auto) 0.8 Basophils # (Auto) 0.2 CBC Comment AUTO DIFF Differential Comment AUTO DIFF CONFIRMED Sickle Cells 2+ Target Cells 2+ Ovalocytes 1+ Keratocytes OCC Reticulocyte Count 6.5 Absolute Reticulocyte Count 165.8 Urine Collection Type CLEAN CATCH Urine Color YELLOW Urine Turbidity CLEAR Urine pH 6.0 Urine Specific [place] 1.013 Urine Protein TRACE Urine Glucose (UA) NEG Urine Ketones NEG Urine Occult Blood TRACE Urine Nitrite NEG Urine Bilirubin NEG Urine Leukocyte Esterase NEG Urine RBC 0-3 Urine WBC 0-2 Urine Squamous Epithelial > 8 Cells Urine Bacteria RARE Microscopic Urinalysis Comment CULT NOT INDICATED Urine Collection Time 08:10 Sodium Level 144 Potassium Level 4.2 Chloride Level 109 Carbon Dioxide Level 26.6 Anion Gap 8 Blood Urea Nitrogen 10 Creatinine 1.00 Estimat Glomerular Filtration 77 Rate Random Glucose 93 Calcium Level 9.1 Total Bilirubin 1.5 Aspartate Amino Transf 36 (AST/SGOT) Alanine Aminotransferase 27 (ALT/SGPT) Alkaline Phosphatase 117 Total Creatine Kinase 36 Troponin I LESS THAN 0.02 C-Reactive Protein 1.10 Total Protein 8.0 Albumin 3.5 Result Diagram: 07/31/16 0810 07/31/16 0810 Imaging Last Impressions Chest X-Ray 07/31/16 0752 Signed Impressions: Service Date/Time: Sunday, July 31, 2016 08:46 - CONCLUSION: No acute disease. Montez Medina Jr., MD Reviewed by me (Dr Coley) Assessment and Plan Assessment and Plan 35-year-old Irish female with: SIRS: HR 94. WBC elevated at 14.2. Afebrile. Chest x-ray personally interpreted with no acute disease, spinal hardware noted. UA personally interpreted with no evidence of infection. Leukocytosis may be stress reaction. -Monitor CBC. -Monitor for signs of infection. Sickle cell crisis: Generalized pain and chest pain. Hemoglobin stable at 8.2. Absolute reticulocyte count 165.8. Tbili elevated at 1.5, but transaminases normal. Troponin < 0.02. EKG personally interpreted with normal sinus rhythm and no evidence of ischemia. -LDH and haptoglobin pending -Continue home Jadenu, Hydroxyurea, 81 mg daily aspirin, folic acid. -NS @ 100 mL/hr -Dilaudid IV q4h prn pain 1-5, 2 mg IV q4h prn pain -Monitor hemoglobin. Transfuse if less than 7.0. HTN: BP currently stable -Continue home amlodipine tomorrow morning DVT prophylaxis: Lovenox sq. Written by María Elena Kaba PA-C acting as scribe for Dr. Coley on 07/31/16 at ~ 1420 hours. This note was transcribed by scribe María Elena Kaba PA-C. I, Dr. Janak Lozano personally performed the history, physical exam, and medical decision making; and confirmed the accuracy of the information in the transcribed note. Authenticated by Dr. Janak Lozano on 07/31/16 at 17:53. Discussed Condition With ED physician María Elena Kaba July 31, 2016 14:40 Janak Kim MD July 31, 2016 17:54
[2016-07-31] MEDS: HYDROmorphone HCL PF 2 MG/ML VIAL IV PUSH PRN ×3 (15:09→23:17)
[2016-07-31] MEDS: JADENU PO SCH (16:00)
[2016-07-31] MEDS: FOLIC ACID 1 MG TAB PO SCH (17:00)
[2016-07-31] MEDS: ONDANSETRON HCL 4 MG/2 ML VIAL IVP PRN (17:29)
[2016-07-31] MEDS: ASPIRIN EC 81 MG TABEC PO SCH (17:30)
[2016-07-31] MEDS: HYDROXYUREA 500 MG CAP PO SCH (17:32)
[2016-07-31] MEDS: SODIUM CHLORIDE 0.9% FLUSH 10 ML FLUSH IV FLUSH SCH (21:00)
[2016-08-01] VITALS (8 sets, daily range): BP systolic 106–130; BP diastolic 70–88; PULSE 90–104; RESP 16–20; TEMP 96.6–98.2; O2SAT 88–100
[2016-08-01] MEDS ORDERED: diphenhydrAMINE HCL 50 MG/ML VIAL IV PUSH ONE (02:15)
[2016-08-01] MEDS: HYDROmorphone HCL PF 2 MG/ML VIAL IV PUSH PRN ×5 (03:59→20:14)
[2016-08-01] MEDS: SODIUM CHLOR 0.9% 1000 ML INJ 1,000 ML IV SCH ×4 (04:01→20:14)
[2016-08-01] MEDS: SODIUM CHLORIDE 0.9% FLUSH 10 ML FLUSH IV FLUSH SCH ×2 (08:02→20:14)
[2016-08-01] MEDS: HYDROXYUREA 500 MG CAP PO SCH ×3 (08:02→16:27)
[2016-08-01] MEDS: FOLIC ACID 1 MG TAB PO SCH (08:02)
[2016-08-01] MEDS: ASPIRIN EC 81 MG TABEC PO SCH (08:02)
[2016-08-01] MEDS: diphenhydrAMINE HCL 25 MG CAP PO PRN ×2 (08:03→16:26)
[2016-08-01] MEDS ORDERED: ALTEPLASE RECOMBINANT 2 MG VIAL INTRACATH ONE (08:15)
[2016-08-01] MEDS: amLODIPine BESYLATE 5 MG TAB PO SCH (09:00)
[2016-08-01 10:37] LABS: CHLORIDE 106 MEQ/L (98-107); POTASSIUM 4.1 MEQ/L (3.5-5.1); SODIUM (NA) 141 MEQ/L (136-145)
[2016-08-01 10:42] LABS: ANION GAP 7 MEQ/L (5-15); BICARBONATE 28.5 MEQ/L (21.0-32.0); BLOOD UREA NITROGEN 7 MG/DL (7-18)
[2016-08-01 10:45] LABS: ALT (GPT) 25 U/L (10-53); AST (GOT) 42 U/L (15-37); GLOMERULAR FILTRATION RATE 86 ML/MIN (>89)
[2016-08-01 10:46] LABS: TOTAL BILIRUBIN ADULT 1.6 MG/DL (0.2-1.0)
[2016-08-01 10:48] LABS: ALKALINE PHOSPHATASE 115 U/L (45-117)
[2016-08-01 10:53] LABS: HEMATOCRIT 21.9 % (35.0-46.0); MEAN CELL VOLUME 91.4 FL (80.0-100.0); MEAN CORPUSCULAR HEMOGLOBIN 30.9 PG (27.0-34.0); MEAN CORPUSCULAR HGB CONC 33.8 % (32.0-36.0); PLATELET COUNT 273 TH/MM3 (150-450); RED BLOOD COUNT 2.39 MIL/MM3 (4.00-5.30); RED CELL DISTRIBUTION WIDTH 21.4 % (11.6-17.2); WHITE BLOOD COUNT 14.9 TH/MM3 (4.0-11.0)
[2016-08-01 10:54] LABS: HEMO FLAGS AUTO DIFF
[2016-08-01 11:17] LABS: BANDS 2 % (0-6); CORRECTED NUCLEATED RBC 2 /100 WBC (0-0); EOSINOPHILS 7 % (0-4); KERATOCYTES OCC (NORMAL); NEUTROPHIL # MANUAL DIFF 7.9 TH/MM3 (1.8-7.7); OVALOCYTES 1+ (NORMAL); POLYS (SEG NEUTROPHILS) 51 % (16-70); SICKLE CELLS 2+ (NORMAL); TARGET CELLS 2+ (NORMAL); WBC DIFF SAMPLE 100
[2016-08-01 11:18] LABS: PLATELET ESTIMATE SMEAR NORMAL (NORMAL); PLATELET MORPHOLOGY NORMAL (NORMAL); SCAN/DIFF FINAL DIFF MANUAL
[2016-08-01] MEDS: ENOXAPARIN SODIUM 40 MG/0.4 ML SYRINGE SQ SCH (12:10)
--- NOTE | 2016-08-01 13:57 | HHI.PR ---
Subjective Remarks patient states that still has pain all over her body denies cp/sob denies fevers/chills denies cough denies diarrhea denies abdominal pain vital signs stable on room air, however has episodes of mild desaturation into the 90's as per records. Objective Vitals Vital Signs Date Time Temp Pulse Resp B/P Pulse Ox O2 Delivery O2 Flow Rate FiO2 08/01/16 12:00 97.7 103 16 121/88 90 08/01/16 10:00 96.6 99 16 117/80 91 08/01/16 08:37 96 21 08/01/16 08:00 97.2 98 16 106/70 100 08/01/16 05:43 08/01/16 00:27 98.0 90 18 130/80 91 07/31/16 21:25 94 21 07/31/16 20:27 97.2 119 20 133/87 92 07/31/16 16:26 16 07/31/16 16:00 97.2 93 19 121/76 93 I/O 07/31/16 07/31/16 07/31/16 08/01/16 08/01/16 08/01/16 07:00 15:00 23:00 07:00 15:00 23:00 Intake Total 1650 ml 1229 ml 624 ml 330 ml Balance 1650 ml 1229 ml 624 ml 330 ml Intake Oral 250 ml 330 ml IV Total 1400 ml 1229 ml 624 ml # Voids 2 2 5 Result Diagram: 08/01/16 1020 08/01/16 1020 Imaging Last Impressions Chest X-Ray 07/31/16 0752 Signed Impressions: Service Date/Time: Sunday, July 31, 2016 08:46 - CONCLUSION: No acute disease. Montez Medina Jr., MD Objective Remarks GENERAL: This is a well-nourished, well-developed patient, in no apparent distress. SKIN: Surgical scar over R upper back. No rashes, ecchymoses or lesions. Warm and dry. HEAD: Atraumatic. Normocephalic. EYES: Scleral icterus present. No injection or drainage. NECK: Trachea midline. No JVD. CARDIOVASCULAR: Regular rate and rhythm without murmurs, gallops, or rubs. RESPIRATORY: Clear to auscultation. Breath sounds equal bilaterally. No wheezes , rales, or rhonchi. GASTROINTESTINAL: Normoactive bowel sounds. Abdomen soft, non-tender, nondistended. No guarding. MUSCULOSKELETAL: No lower extremity edema or pain bilaterally. NEUROLOGICAL: Awake and alert. Motor grossly within normal limits. Normal speech. Medications and IVs Current Medications Medications (Trade) Dose Ordered Sig/Abigail Route Start Time Stop Time Status Last Admin (NS 1000 ml Inj) 1,000 ml @ 100 mls/hr Q10H IV 07/31/16 10:11 08/01/16 04:01 (NS Flush) 2 ml UNSCH PRN IV FLUSH 07/31/16 10:15 (NS Flush) 2 ml BID IV FLUSH 07/31/16 21:00 07/31/16 21:00 (Tylenol) 650 mg Q4H PRN PO 07/31/16 10:15 (Zofran Inj) 4 mg Q6H PRN IVP 07/31/16 10:15 07/31/16 17:29 (Lovenox Inj) 40 mg Q24H SQ 07/31/16 11:00 08/01/16 12:10 (Dilaudid Pf Inj) 1 mg Q4H PRN IV PUSH 07/31/16 10:30 (Dilaudid Pf Inj) 2 mg Q4H PRN IV PUSH 07/31/16 10:30 08/01/16 12:11 (Norvasc) 5 mg DAILY PO 08/01/16 09:00 (Ecotrin Ec) 81 mg DAILY PO 07/31/16 17:00 08/01/16 08:02 (Folate) 1 mg DAILY PO 07/31/16 17:00 08/01/16 08:02 (Hydrea) 500 mg TID PO 07/31/16 18:00 08/01/16 12:10 Patient Own Medication PT OWN MED: JADENU ... DAILY@1600 PO 07/31/16 16:00 (Benadryl) 25 mg Q6H PRN PO 08/01/16 07:45 08/01/16 08:03 Urinary Catheter: No Vascular Central Line Catheter: No A/P Problem List: (1) SIRS (systemic inflammatory response syndrome) ICD Code: R65.10 Status: Acute Plan: Present on admission. Patient afebrile. Chest x-ray reviewed by me without acute disease. Spinal hardware noted. UA negative. Leukocytosis likely secondary to stress and pain. Continue to monitor CBC Repeat CBC continues to show elevated white blood cell count, this could be secondary to hemolysis. (2) Sickle cell anemia with crisis ICD Code: D57.00 Status: Acute Plan: Patient presented with generalized body pain and chest pain. Hemoglobin 8.2, trending down to 7.4. Absolute reticulocyte count 165.8, haptoglobin less than 10 and increased LDH of 362. EKG personally reviewed by me showed no sinus rhythm and no evidence of ischemia. Continue to treat with IV fluids ( increase rate to 150 ml/hr), pain control with IV Dilaudid and oxygen. Continue hydroxyurea, aspirin, folic acid and Jadenu. Continue to monitor reticulocyte count, haptoglobin, LDH and bilirubin. consider hematology consult if no improvement by am Transfuse only for hemoglobin less than 7. (3) HTN (hypertension) ICD Code: I10 Status: Acute Plan: BP seems stable. Continue amlodipine. Assessment and Plan DVT prophylaxis: SCDs, Lovenox subcutaneously. Discharge Planning Continue to monitor in the medical floor. Discharge pending clinical improvement. Problem Qualifiers (1) HTN (hypertension): Qualified Code: I10 - Essential hypertension Janak Kim MD August 01, 2016 13:56
[2016-08-01] MEDS: JADENU PO SCH (16:06)
[2016-08-01] MEDS: ONDANSETRON HCL 4 MG/2 ML VIAL IVP PRN (17:40)
--- NOTE | 2016-08-01 22:08 | EKG ---
Date Performed: 07/31/2016 Time Performed: 08:22:28 PTAGE: 35 years EKG: Sinus rhythm Anterior T wave changes are normal for age and race Normal ECG PREVIOUS TRACING : 07/06/2016 14.55 DOCTOR: Keo Artis Interpretating Date/Time 08/01/2016 22:01:35
[2016-08-02] VITALS (11 sets, daily range): BP systolic 115–143; BP diastolic 79–97; PULSE 94–117; RESP 18–24; TEMP 97.2–99.4; O2SAT 94–100
[2016-08-02] MEDS: HYDROmorphone HCL PF 2 MG/ML VIAL IV PUSH PRN ×5 (02:38→20:06)
[2016-08-02] MEDS: SODIUM CHLOR 0.9% 1000 ML INJ 1,000 ML IV SCH ×3 (04:51→17:12)
[2016-08-02 05:03] LABS: MEAN CELL VOLUME 88.6 FL (80.0-100.0); MEAN CORPUSCULAR HEMOGLOBIN 31.1 PG (27.0-34.0); MEAN CORPUSCULAR HGB CONC 35.1 % (32.0-36.0); PLATELET COUNT 279 TH/MM3 (150-450); RED BLOOD COUNT 2.23 MIL/MM3 (4.00-5.30); RED CELL DISTRIBUTION WIDTH 20.6 % (11.6-17.2); WHITE BLOOD COUNT 14.4 TH/MM3 (4.0-11.0)
[2016-08-02 05:09] LABS: HEMO FLAGS AUTO DIFF
[2016-08-02 05:10] LABS: CHLORIDE 108 MEQ/L (98-107); POTASSIUM 4.2 MEQ/L (3.5-5.1); SODIUM (NA) 142 MEQ/L (136-145)
[2016-08-02 05:12] LABS: HEMATOCRIT 19.8 % (35.0-46.0)
[2016-08-02 05:14] LABS: ANION GAP 7 MEQ/L (5-15); BICARBONATE 27.4 MEQ/L (21.0-32.0); BLOOD UREA NITROGEN 7 MG/DL (7-18)
[2016-08-02 05:15] LABS: BANDS 1 % (0-6); CORRECTED NUCLEATED RBC 8 /100 WBC (0-0); CORRECTED WBC 13.3 TH/MM3 (4.0-11.0); EOSINOPHILS 5 % (0-4); NEUTROPHIL # MANUAL DIFF 9.4 TH/MM3 (1.8-7.7); OVALOCYTES 1+ (NORMAL); POLYS (SEG NEUTROPHILS) 70 % (16-70); SICKLE CELLS 2+ (NORMAL); TARGET CELLS 1+ (NORMAL); WBC DIFF SAMPLE 100
[2016-08-02 05:16] LABS: PLATELET ESTIMATE SMEAR NORMAL (NORMAL); PLATELET MORPHOLOGY NORMAL (NORMAL); SCAN/DIFF FINAL DIFF MANUAL
[2016-08-02 05:17] LABS: ALT (GPT) 31 U/L (10-53); AST (GOT) 56 U/L (15-37); GLOMERULAR FILTRATION RATE 83 ML/MIN (>89)
[2016-08-02 05:19] LABS: TOTAL BILIRUBIN ADULT 1.7 MG/DL (0.2-1.0)
[2016-08-02 05:20] LABS: ALKALINE PHOSPHATASE 117 U/L (45-117)
[2016-08-02] MEDS ORDERED: diphenhydrAMINE HCL 25 MG CAP PO PRN (06:15)
[2016-08-02] MEDS ORDERED: SODIUM CHLOR 0.9% 250 ML INJ 250 ML IV ONE (06:15)
[2016-08-02] MEDS ORDERED: ACETAMINOPHEN 325 MG TAB PO PRN (06:15)
[2016-08-02] MEDS: HYDROXYUREA 500 MG CAP PO SCH ×3 (07:43→17:12)
[2016-08-02] MEDS: DEFERASIROX 180 MG PO SCH ×2 (07:43→08:02)
[2016-08-02] MEDS: SODIUM CHLORIDE 0.9% FLUSH 10 ML FLUSH IV FLUSH SCH ×2 (07:45→21:00)
[2016-08-02] MEDS: diphenhydrAMINE HCL 25 MG CAP PO PRN ×3 (07:45→20:06)
[2016-08-02] MEDS: ASPIRIN EC 81 MG TABEC PO SCH (07:45)
[2016-08-02] MEDS: amLODIPine BESYLATE 5 MG TAB PO SCH (07:45)
[2016-08-02] MEDS: FOLIC ACID 1 MG TAB PO SCH (07:45)
[2016-08-02 07:46] LABS: RETIC % 6.4 % (0.4-3.0)
[2016-08-02 07:47] LABS: REVIEW FLAG FINAL
[2016-08-02 07:52] LABS: LDH SERUM 396 U/L (84-246)
[2016-08-02] MEDS ORDERED: [UNRECOGNIZED DRUG - CODE] (07:59)
[2016-08-02] MEDS: ENOXAPARIN SODIUM 40 MG/0.4 ML SYRINGE SQ SCH (09:39)
--- NOTE | 2016-08-02 11:16 | HHI.PR ---
Subjective Remarks Patient states she feels very dizzy hemoglobin dropped to 6.9 denies cp, sob states body aches comes and goes patient is slightly more tachycardic than before Objective Vitals Vital Signs Date Time Temp Pulse Resp B/P Pulse Ox O2 Delivery O2 Flow Rate FiO2 08/02/16 10:25 98.5 115 20 127/88 97 08/02/16 07:55 99.4 112 24 127/81 94 08/02/16 00:54 98.8 117 18 128/83 98 08/01/16 20:55 97.1 98 20 116/80 100 08/01/16 19:50 95 21 08/01/16 16:00 98.2 104 16 111/70 88 08/01/16 12:00 97.7 103 16 121/88 90 I/O 08/01/16 08/01/16 08/01/16 08/02/16 08/02/16 08/02/16 07:00 15:00 23:00 07:00 15:00 23:00 Intake Total 624 ml 1030 ml Balance 624 ml 1030 ml Intake Oral 330 ml IV Total 624 ml 700 ml # Voids 5 3 Result Diagram: 08/02/16 0450 08/02/16 0450 Imaging Last Impressions Chest X-Ray 07/31/16 0752 Signed Impressions: Service Date/Time: Sunday, July 31, 2016 08:46 - CONCLUSION: No acute disease. Montez Medina Jr., MD Objective Remarks GENERAL: This is a well-nourished, well-developed patient, in no apparent distress. SKIN: Surgical scar over R upper back. No rashes, ecchymoses or lesions. Warm and dry. HEAD: Atraumatic. Normocephalic. EYES: Scleral icterus present. No injection or drainage. NECK: Trachea midline. No JVD. CARDIOVASCULAR: Regular rate and rhythm without murmurs, gallops, or rubs. RESPIRATORY: Clear to auscultation. Breath sounds equal bilaterally. No wheezes , rales, or rhonchi. GASTROINTESTINAL: Normoactive bowel sounds. Abdomen soft, non-tender, nondistended. No guarding. MUSCULOSKELETAL: No lower extremity edema or pain bilaterally. NEUROLOGICAL: Awake and alert. Motor grossly within normal limits. Normal speech. Procedures none Medications and IVs Current Medications Medications (Trade) Dose Ordered Sig/Abigail Route Start Time Stop Time Status Last Admin (NS 1000 ml Inj) 1,000 ml @ 150 mls/hr Q6H40M IV 07/31/16 10:11 08/02/16 07:46 (NS Flush) 2 ml UNSCH PRN IV FLUSH 07/31/16 10:15 (NS Flush) 2 ml BID IV FLUSH 07/31/16 21:00 08/01/16 20:14 (Tylenol) 650 mg Q4H PRN PO 07/31/16 10:15 (Zofran Inj) 4 mg Q6H PRN IVP 07/31/16 10:15 08/01/16 17:40 (Lovenox Inj) 40 mg Q24H SQ 07/31/16 11:00 08/02/16 09:39 (Dilaudid Pf Inj) 1 mg Q4H PRN IV PUSH 07/31/16 10:30 (Dilaudid Pf Inj) 2 mg Q4H PRN IV PUSH 07/31/16 10:30 08/02/16 07:45 (Norvasc) 5 mg DAILY PO 08/01/16 09:00 08/02/16 07:45 (Ecotrin Ec) 81 mg DAILY PO 07/31/16 17:00 08/02/16 07:45 (Folate) 1 mg DAILY PO 07/31/16 17:00 08/02/16 07:45 (Hydrea) 500 mg TID PO 07/31/16 18:00 08/02/16 07:43 (Benadryl) 25 mg Q6H PRN PO 08/01/16 07:45 08/02/16 07:45 Patient Own Medication PT OWN MED: JADENU ... DAILY PO 08/02/16 09:00 08/02/16 07:43 (NS 250 ml Inj) 250 ml @ 15 mls/hr ONCE ONCE IV 08/02/16 06:15 08/02/16 22:54 08/02/16 07:46 Urinary Catheter: No Vascular Central Line Catheter: No A/P Problem List: (1) SIRS (systemic inflammatory response syndrome) ICD Code: R65.10 Status: Acute Plan: Present on admission. Patient afebrile. Chest x-ray reviewed by me without acute disease. Spinal hardware noted. UA negative. Leukocytosis likely secondary to stress and pain. Continue to monitor CBC Repeat CBC continues to show elevated white blood cell count, this could be secondary to hemolysis. (2) Sickle cell anemia with crisis ICD Code: D57.00 Status: Acute Plan: Patient presented with generalized body pain and chest pain. Hemoglobin 8.2, trending down to 7.4. Absolute reticulocyte count 165.8, haptoglobin less than 10 and increased LDH of 362. EKG personally reviewed by me showed no sinus rhythm and no evidence of ischemia. Continue to treat with IV fluids ( increase rate to 150 ml/hr), pain control with IV Dilaudid and oxygen. Continue hydroxyurea, aspirin, folic acid and Jadenu. Continue to monitor reticulocyte count, haptoglobin, LDH and bilirubin. consider hematology consult if no improvement by am Transfuse only for hemoglobin less than 7. 5/7 Hemoglobin down to 6.9, transfuse 2 units of PRBC's, continue to monitor cbc , hematology consult - Dr Shea LDH continues to be elevated and trending up from 262-396. Haptoglobin less than 10, reticulocyte count slightly decreased from 6.5 to 6.4. (3) HTN (hypertension) ICD Code: I10 Status: Acute Plan: BP seems stable. Continue amlodipine. (4) Dizziness ICD Code: R42 Status: Acute Plan: [place] due to anemia. Transfuse PRBC's. Continue IV fluids. Assessment and Plan DVT prophylaxis: SCDs, Lovenox subcutaneously. Discharge Planning Continue to monitor in the medical floor. Discharge pending clinical improvement. Problem Qualifiers (1) HTN (hypertension): Qualified Code: I10 - Essential hypertension Janak Kim MD August 02, 2016 11:16
--- NOTE | 2016-08-02 15:25 | MB ---
cc: MIKE BOUCHER M.D. DATE OF CONSULTATION: August 02, 2016. ATTENDING PHYSICIAN Dr. Coley. REASON FOR CONSULTATION Hematology consult to render opinion regarding patient with sickle-cell disease, admitted with vasoocclusive pain crisis. HISTORY OF PRESENT ILLNESS The patient is a 35-year-old female with history of sickle-cell disease and frequent vasoocclusive pain crisis, presented to the hospital with complaint of increased pain in her back and chest since last . She had tried Dilaudid without relief. She also has dizziness for the last 3 days. She denies any fever or chills. She vomited once yesterday. She denies any cough or significant shortness of breath. She denies abdominal pain or diarrhea. She has no visual changes. Denies any focal numbness or weakness. PAST MEDICAL HISTORY 1. Sickle-cell disease with frequent vasoocclusive pain crisis. 2. Avascular necrosis of the hip. 3. Chronic kidney disease. 4. 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 5. Multiple upper extremity venous thrombosis. 6. Scoliosis. 7. Migraine headache. PAST SURGICAL HISTORY 1. Bilateral total hip replacement. 2. Cholecystectomy. 3. Back surgery. 4. Port placement. FAMILY HISTORY Parents had sickle-cell trait. SOCIAL HISTORY No tobacco or alcohol use. ALLERGIES TORADOL, MOTRIN, MORPHINE, METHADONE. MEDICATIONS 1. Jadenu. 2. Amlodipine. 3. Hydrea. 4. Aspirin. 5. Folic acid. 6. Lovenox. REVIEW OF SYSTEMS CONSTITUTIONAL: Denies any fever, chills, night sweat, weight loss. EYES: Denies any blurred vision, double vision. ENT: No mouth sores, voice changes. CARDIOVASCULAR: As above. RESPIRATORY: Denies shortness of breath or cough. GI: As above. : Denies dysuria, hematuria. MUSCULOSKELETAL: As above. HEMATOLOGY: As above. ENDOCRINE: Negative. DERMATOLOGY: Negative. PSYCHIATRIC: Negative. NEUROLOGIC: Negative except for the dizziness. PHYSICAL EXAMINATION VITAL SIGNS: Temperature 97.2, blood pressure 129/87, O2 saturation 100% on 2 liters nasal cannula. GENERAL: She is alert and oriented x3, in no acute distress. HEENT: Atraumatic, normocephalic. Pupils equal, round and reactive to light. Extraocular muscles intact. No scleral icterus. Oropharynx dry mucosa. No lesion or thrush. NECK: No thyromegaly. No palpable masses. LYMPHATICS: No palpable cervical, clavicular, axillary lymph nodes. CARDIOVASCULAR: Regular, S1-S2. No murmur. LUNGS: Clear to auscultation without wheezing or rhonchi. ABDOMEN: Soft, nontender. Could not palpate liver or spleen. EXTREMITIES: No cyanosis, clubbing or edema. No calf tenderness. BACK: No paravertebral tenderness. SKIN: No rash or petechiae. NEUROLOGIC: Nonfocal. LABORATORY DATA Reviewed. ASSESSMENT 1. Sickle-cell disease with frequent vasoocclusive pain crisis. She had presented with her usual low back pain and sternal chest pain. Hemoglobin was 7.4 when she presented but trended down to 6.9 this morning. Her baseline hemoglobin is around 8. She was having dizziness. She received 1 unit of packed red blood cell transfusion this morning. She is feeling better. She has no evidence of acute chest syndrome. 2. Dizziness likely due to her anemia. She has no focal neurologic deficit and no clear evidence of stroke at this point. If she has worsening dizziness I will recommend getting an MRI for further evaluation. 3. History of recurrent upper extremity thromboembolic event. She was on Xarelto in the past. She has been on aspirin and lately, she has no symptom of recurrent clot. 4. Hemochromatosis due to frequent blood transfusion. She is taking Jadenu. 5. Chronic kidney disease, stable. 6. Avascular necrosis of hip status post total hip replacement surgery. 7. Migraine headache. PLAN 1. Agree with transfusion. 2. Continue supportive care with hydration, oxygen supplement and pain control. 3. Continue DVT prophylaxis with Lovenox. 4. Continue hydroxyurea, folic acid and Jadenu. 5. Consider getting a brain MRI if she has persistent dizziness. 6. She can be discharged once pain is controlled and stable. Thank you Dr. Coley for asking me to see this patient. MD CHRIS Junior/MARCO A /2:36 PM /2:55 PM LUIS FELIPE
[2016-08-02 18:20] LABS: HEMATOCRIT 25.2 % (35.0-46.0)
[2016-08-02 18:37] LABS: REVIEW FLAG FINAL
[2016-08-03] VITALS (7 sets, daily range): BP systolic 121–135; BP diastolic 83–93; PULSE 78–104; RESP 18–22; TEMP 97.6–99; O2SAT 92–98
[2016-08-03] MEDS: SODIUM CHLOR 0.9% 1000 ML INJ 1,000 ML IV SCH ×3 (02:44→14:06)
[2016-08-03] MEDS: HYDROmorphone HCL PF 2 MG/ML VIAL IV PUSH PRN ×5 (04:58→22:07)
[2016-08-03] MEDS: diphenhydrAMINE HCL 25 MG CAP PO PRN ×2 (04:59→13:14)
[2016-08-03 06:48] LABS: HEMATOCRIT 24.6 % (35.0-46.0); MEAN CELL VOLUME 90.2 FL (80.0-100.0); MEAN CORPUSCULAR HEMOGLOBIN 30.3 PG (27.0-34.0); MEAN CORPUSCULAR HGB CONC 33.5 % (32.0-36.0); PLATELET COUNT 239 TH/MM3 (150-450); RED BLOOD COUNT 2.73 MIL/MM3 (4.00-5.30); RED CELL DISTRIBUTION WIDTH 17.9 % (11.6-17.2); WHITE BLOOD COUNT 12.4 TH/MM3 (4.0-11.0)
[2016-08-03 06:55] LABS: HEMO FLAGS AUTO DIFF
[2016-08-03 06:59] LABS: CHLORIDE 108 MEQ/L (98-107); POTASSIUM 3.8 MEQ/L (3.5-5.1); SODIUM (NA) 143 MEQ/L (136-145)
[2016-08-03 07:10] LABS: ALT (GPT) 38 U/L (10-53); ANION GAP 7 MEQ/L (5-15); BICARBONATE 27.6 MEQ/L (21.0-32.0); BLOOD UREA NITROGEN 7 MG/DL (7-18)
[2016-08-03 07:11] LABS: AST (GOT) 60 U/L (15-37)
[2016-08-03 07:12] LABS: GLOMERULAR FILTRATION RATE 104 ML/MIN (>89); TOTAL BILIRUBIN ADULT 1.5 MG/DL (0.2-1.0)
[2016-08-03 07:13] LABS: ALKALINE PHOSPHATASE 114 U/L (45-117)
[2016-08-03 08:00] LABS: BANDS 1 % (0-6); CORRECTED NUCLEATED RBC 11 /100 WBC (0-0); CORRECTED WBC 11.2 TH/MM3 (4.0-11.0); EOSINOPHILS 9 % (0-4); NEUTROPHIL # MANUAL DIFF 4.8 TH/MM3 (1.8-7.7); POLYS (SEG NEUTROPHILS) 42 % (16-70); WBC DIFF SAMPLE 100
[2016-08-03 08:01] LABS: SCAN/DIFF FINAL DIFF MANUAL; SICKLE CELLS 1+ (NORMAL)
[2016-08-03 08:11] LABS: PLATELET ESTIMATE SMEAR NORMAL (NORMAL); PLATELET MORPHOLOGY NORMAL (NORMAL)
[2016-08-03] MEDS: DEFERASIROX 180 MG PO SCH (09:00)
[2016-08-03] MEDS: ASPIRIN EC 81 MG TABEC PO SCH (09:16)
[2016-08-03] MEDS: FOLIC ACID 1 MG TAB PO SCH (09:17)
[2016-08-03] MEDS: amLODIPine BESYLATE 5 MG TAB PO SCH (09:17)
[2016-08-03] MEDS: HYDROXYUREA 500 MG CAP PO SCH ×3 (09:22→17:30)
[2016-08-03] MEDS: SODIUM CHLORIDE 0.9% FLUSH 10 ML FLUSH IV FLUSH SCH ×2 (09:23→21:00)
[2016-08-03 09:24] LABS: RETIC % 8.1 % (0.4-3.0)
[2016-08-03 09:28] LABS: REVIEW FLAG FINAL
[2016-08-03 09:41] LABS: LDH SERUM 424 U/L (84-246)
--- NOTE | 2016-08-03 10:40 | HHI.PR ---
Subjective Remarks patient denies cp/sob states has occasional body aches denies fevers/chills dizziness is improved, however she states still episodic vital signs stable Objective Vitals Vital Signs Date Time Temp Pulse Resp B/P Pulse Ox O2 Delivery O2 Flow Rate FiO2 08/03/16 10:20 16 08/03/16 08:00 98.9 100 18 121/83 92 08/03/16 07:41 Room Air 08/03/16 04:00 78 20 95 08/03/16 00:00 98.7 98 22 135/84 94 08/02/16 20:15 100 Nasal Cannula 2.00 08/02/16 20:00 98.9 98 20 134/93 100 08/02/16 19:00 98 Room Air 08/02/16 16:00 98.3 100 18 115/79 96 08/02/16 13:35 Nasal Cannula 2.00 08/02/16 12:00 97.2 94 18 129/87 100 08/02/16 11:40 98.2 101 20 139/93 98 08/02/16 11:25 108 20 143/97 94 08/02/16 10:55 98.5 103 20 125/83 100 08/02/16 10:40 98.5 102 20 126/88 100 08/02/16 10:25 98.5 115 20 127/88 97 08/02/16 10:25 98.5 115 20 127/88 97 I/O 08/02/16 08/02/16 08/02/16 08/03/16 08/03/16 08/03/16 06:59 14:59 22:59 06:59 14:59 22:59 Intake Total 960 ml 3344 ml 1317 ml Output Total 3 ml Balance 960 ml 3341 ml 1317 ml Intake Oral 960 ml 1110 ml 240 ml IV Total 2234 ml 1077 ml Output Urine Total 3 ml # Voids 3 4 2 1 # Bowel Movements 0 0 Result Diagram: 08/03/16 0630 08/03/16 0630 Imaging Last Impressions Chest X-Ray 07/31/16 0752 Signed Impressions: Service Date/Time: Sunday, July 31, 2016 08:46 - CONCLUSION: No acute disease. Montez Medina Jr., MD Objective Remarks GENERAL: This is a well-nourished, well-developed patient, in no apparent distress. SKIN: Surgical scar over R upper back. No rashes, ecchymoses or lesions. Warm and dry. HEAD: Atraumatic. Normocephalic. EYES: Scleral icterus present. No injection or drainage. NECK: Trachea midline. No JVD. CARDIOVASCULAR: Regular rate and rhythm without murmurs, gallops, or rubs. RESPIRATORY: Clear to auscultation. Breath sounds equal bilaterally. No wheezes , rales, or rhonchi. GASTROINTESTINAL: Normoactive bowel sounds. Abdomen soft, non-tender, nondistended. No guarding. MUSCULOSKELETAL: No lower extremity edema or pain bilaterally. NEUROLOGICAL: Awake and alert. Motor grossly within normal limits. Normal speech. Procedures none Medications and IVs Current Medications Medications (Trade) Dose Ordered Sig/Abigail Route Start Time Stop Time Status Last Admin (NS 1000 ml Inj) 1,000 ml @ 150 mls/hr Q6H40M IV 07/31/16 10:11 08/03/16 07:26 (NS Flush) 2 ml UNSCH PRN IV FLUSH 07/31/16 10:15 (NS Flush) 2 ml BID IV FLUSH 07/31/16 21:00 08/03/16 09:23 (Tylenol) 650 mg Q4H PRN PO 07/31/16 10:15 (Zofran Inj) 4 mg Q6H PRN IVP 07/31/16 10:15 08/01/16 17:40 (Lovenox Inj) 40 mg Q24H SQ 07/31/16 11:00 08/02/16 09:39 (Dilaudid Pf Inj) 1 mg Q4H PRN IV PUSH 07/31/16 10:30 (Dilaudid Pf Inj) 2 mg Q4H PRN IV PUSH 07/31/16 10:30 08/03/16 09:16 (Norvasc) 5 mg DAILY PO 08/01/16 09:00 08/03/16 09:17 (Ecotrin Ec) 81 mg DAILY PO 07/31/16 17:00 08/03/16 09:16 (Folate) 1 mg DAILY PO 07/31/16 17:00 08/03/16 09:17 (Hydrea) 500 mg TID PO 07/31/16 18:00 08/03/16 09:22 (Benadryl) 25 mg Q6H PRN PO 08/01/16 07:45 08/03/16 04:59 Patient Own Medication PT OWN MED: JADENU ... DAILY PO 08/02/16 09:00 08/03/16 09:00 Urinary Catheter: No Vascular Central Line Catheter: No A/P Problem List: (1) SIRS (systemic inflammatory response syndrome) ICD Code: R65.10 Status: Acute (2) Sickle cell anemia with crisis ICD Code: D57.00 Status: Acute (3) HTN (hypertension) ICD Code: I10 Status: Acute (4) Dizziness ICD Code: R42 Status: Acute (5) Hemochromatosis ICD Code: E83.119 Status: Acute Plan: On Jadenu. Continue. Assessment and Plan (1) SIRS (systemic inflammatory response syndrome) Present on admission. Patient afebrile. Chest x-ray reviewed by me without acute disease. Spinal hardware noted. UA negative. Leukocytosis likely secondary to stress and pain. Continue to monitor CBC Repeat CBC continues to show elevated white blood cell count, this could be secondary to hemolysis. 08/03 [facility] trending down, today down to 12.4 K. (2) Sickle cell anemia with crisis Plan: Patient presented with her usual low back pain as sternal chest pain. Hemoglobin was 7.4 and trended down to 6.9. Patient had an elevated reticulocyte count, low haptoglobin and increased LDH. EKG personally reviewed by me showed sinus rhythm without evidence of ischemia. Continue chemotherapy fluids, continue pain control with IV Dilaudid and oxygen. Continue hydroxyurea , aspirin, folic acid. 08/03 appreciate hematology consultation and recommendations. Patient has an elevated reticulocyte count of 8.1, haptoglobin still less than 10, LDH trending up to 424. Patient is status post transfusion of 1 unit of packed red blood cells with appropriate hemoglobin response. Hemoglobin went up from 6.9- 8.6. Hemoglobin today 8.3. Continue to monitor hemoglobin. Patient seems to still be hemolyzing. (3) HTN (hypertension) Plan: BP seems stable. Continue amlodipine. (4) Dizziness Plan: Likely due to anemia. Status post fusion of 1 unit PRBCs. Dizziness much improved DVT prophylaxis: SCDs, Lovenox subcutaneously. Discharge Planning Continue to monitor in the medical floor. Discharge pending clinical improvement. Problem Qualifiers (1) HTN (hypertension): Qualified Code: I10 - Essential hypertension (2) Hemochromatosis: Qualified Code: E83.111 - Hemochromatosis due to repeated red blood cell transfusions Janak Kim MD August 03, 2016 10:40
[2016-08-03] MEDS: ENOXAPARIN SODIUM 40 MG/0.4 ML SYRINGE SQ SCH (12:40)
[2016-08-03] MEDS: ONDANSETRON HCL 4 MG/2 ML VIAL IVP PRN (17:23)
--- NOTE | 2016-08-03 17:56 | PD.ONC.PN ---
Subjective Subjective Remarks Still a little dizzy. No nausea or vomiting. No menses. Objective Data Date Time Temp Pulse Resp B/P Pulse Ox O2 Delivery O2 Flow Rate FiO2 08/03/16 16:00 97.6 99 19 121/89 97 08/03/16 14:43 18 08/03/16 12:00 98.6 104 18 130/93 92 08/03/16 08:00 93 Nasal Cannula 2.00 08/03/16 08:00 98.9 100 18 121/83 92 08/03/16 07:41 Room Air 08/03/16 04:00 78 20 95 08/03/16 00:00 98.7 98 22 135/84 94 08/02/16 20:15 100 Nasal Cannula 2.00 08/02/16 20:00 98.9 98 20 134/93 100 08/02/16 19:00 98 Room Air 08/03/16 08/03/16 08/03/16 07:00 15:00 23:00 Intake Total 1317 ml 1670 ml Balance 1317 ml 1670 ml Result Diagram: 08/03/16 0630 08/03/16 0630 Laboratory Results Laboratory Tests Test 08/02/16 08/03/16 18:05 06:30 Hemoglobin 8.6 GM/DL 8.3 GM/DL Hematocrit 25.2 % 24.6 % White Blood Count 12.4 TH/MM3 Corrected White Blood Count 11.2 TH/MM3 Red Blood Count 2.73 MIL/MM3 Mean Corpuscular Volume 90.2 FL Mean Corpuscular Hemoglobin 30.3 PG Mean Corpuscular Hemoglobin 33.5 % Concent Red Cell Distribution Width 17.9 % Platelet Count 239 TH/MM3 Mean Platelet Volume 8.7 FL Neutrophils (%) (Auto) % Lymphocytes (%) (Auto) % Monocytes (%) (Auto) % Eosinophils (%) (Auto) % Basophils (%) (Auto) % Neutrophils # (Auto) TH/MM3 Lymphocytes # (Auto) TH/MM3 Monocytes # (Auto) TH/MM3 Eosinophils # (Auto) TH/MM3 Basophils # (Auto) TH/MM3 CBC Comment AUTO DIFF Differential Total Cells 100 Counted Neutrophils % (Manual) 42 % Band Neutrophils % 1 % Lymphocytes % 44 % Monocytes % 4 % Eosinophils % 9 % Neutrophils # (Manual) 4.8 TH/MM3 Nucleated Red Blood Cells 11 /100 WBC Differential Comment FINAL DIFF MANUAL Platelet Estimate NORMAL Platelet Morphology Comment NORMAL Sickle Cells 1+ Reticulocyte Count 8.1 % Absolute Reticulocyte Count 211.8 MIL/L Haptoglobin LESS THAN 10 MG/DL Sodium Level 143 MEQ/L Potassium Level 3.8 MEQ/L Chloride Level 108 MEQ/L Carbon Dioxide Level 27.6 MEQ/L Anion Gap 7 MEQ/L Blood Urea Nitrogen 7 MG/DL Creatinine 0.77 MG/DL Estimat Glomerular Filtration 104 ML/MIN Rate Random Glucose 92 MG/DL Calcium Level 8.2 MG/DL Total Bilirubin 1.5 MG/DL Aspartate Amino Transf 60 U/L (AST/SGOT) Alanine Aminotransferase 38 U/L (ALT/SGPT) Alkaline Phosphatase 114 U/L Lactate Dehydrogenase 424 U/L Total Protein 7.0 GM/DL Albumin 2.9 GM/DL Administered Medications Medications (Trade) Dose Ordered Sig/Abigail Route PRN Reason Start Time Stop Time Status Last Admin Dose Admin Sodium Chloride (NS 1000 ml Inj) 1,000 ml @ 150 mls/hr Q6H40M IV 07/31/16 10:11 08/03/16 07:26 Sodium Chloride (NS Flush) 2 ml BID IV FLUSH 07/31/16 21:00 08/03/16 09:23 Ondansetron HCl (Zofran Inj) 4 mg Q6H PRN IVP NAUSEA OR VOMITING 07/31/16 10:15 08/03/16 17:23 Enoxaparin Sodium (Lovenox Inj) 40 mg Q24H SQ 07/31/16 11:00 08/03/16 12:40 Hydromorphone HCl (Dilaudid Pf Inj) 2 mg Q4H PRN IV PUSH PAIN SCALE 6 TO 10 07/31/16 10:30 08/03/16 17:23 Amlodipine Besylate (Norvasc) 5 mg DAILY PO 08/01/16 09:00 08/03/16 09:17 Aspirin (Ecotrin Ec) 81 mg DAILY PO 07/31/16 17:00 08/03/16 09:16 Folic Acid (Folate) 1 mg DAILY PO 07/31/16 17:00 08/03/16 09:17 Hydroxyurea (Hydrea) 500 mg TID PO 07/31/16 18:00 08/03/16 17:30 Diphenhydramine HCl (Benadryl) 25 mg Q6H PRN PO itching 08/01/16 07:45 08/03/16 13:14 Patient Own Medication PT OWN MED: JADENU ... DAILY PO 08/02/16 09:00 08/03/16 09:00 Objective Remarks GENERAL: Well-nourished, well-developed patient. SKIN: Warm and dry. HEAD: Normocephalic. EYES: Mild scleral icterus. No injection or drainage. NECK: Supple, trachea midline. No JVD or lymphadenopathy. LYMPHATIC: No adenopathy. CARDIOVASCULAR: Regular rate and rhythm without murmurs. RESPIRATORY: Breath sounds equal bilaterally. No accessory muscle use. GASTROINTESTINAL: Abdomen soft, non-tender, nondistended. EXTREMITIES: No cyanosis, or edema. MUSCULOSKELETAL: Scoliosis. NEUROLOGICAL: No obvious focal deficit. Awake, alert, and oriented x3. PSYCHIATRIC: Appropriate mood and affect; insight and judgment normal. Assessment/Plan Problem List: (1) Sickle cell anemia with crisis Status: Acute Plan: acute vaso occlusive crisis with worsen anemia, symptoms of dizziness Hgb improve- monitor stability iron overload- on Jadenu Assessment 35 y/o woman with SCD, anemia worsen with symptoms, improve post transfusion Plan 1. Continue supportive tx IVF hydration/pain meds/oxygen. 2. ASA prophylaxis 3. Monitor hgb Lilo Shea MD August 03, 2016 17:56
[2016-08-04] VITALS (7 sets, daily range): BP systolic 116–131; BP diastolic 77–91; PULSE 70–96; RESP 16–20; TEMP 97.5–98.6; O2SAT 94–100
[2016-08-04] MEDS: SODIUM CHLOR 0.9% 1000 ML INJ 1,000 ML IV SCH ×5 (00:03→19:47)
[2016-08-04] MEDS: HYDROmorphone HCL PF 2 MG/ML VIAL IV PUSH PRN ×5 (04:21→21:49)
[2016-08-04 08:42] LABS: HEMATOCRIT 23.6 % (35.0-46.0); MEAN CELL VOLUME 91.3 FL (80.0-100.0); PLATELET COUNT 248 TH/MM3 (150-450); RED BLOOD COUNT 2.59 MIL/MM3 (4.00-5.30); RED CELL DISTRIBUTION WIDTH 19.4 % (11.6-17.2); WHITE BLOOD COUNT 10.9 TH/MM3 (4.0-11.0)
[2016-08-04] MEDS: DEFERASIROX 180 MG PO SCH (08:46)
[2016-08-04] MEDS: FOLIC ACID 1 MG TAB PO SCH (08:47)
[2016-08-04] MEDS: ASPIRIN EC 81 MG TABEC PO SCH (08:47)
[2016-08-04] MEDS: amLODIPine BESYLATE 5 MG TAB PO SCH (08:47)
[2016-08-04] MEDS: SODIUM CHLORIDE 0.9% FLUSH 10 ML FLUSH IV FLUSH SCH ×2 (08:47→20:12)
[2016-08-04 08:48] LABS: BICARBONATE 28.1 MEQ/L (21.0-32.0)
[2016-08-04] MEDS: HYDROXYUREA 500 MG CAP PO SCH ×3 (08:53→18:03)
[2016-08-04 08:58] LABS: HEMO FLAGS AUTO DIFF
[2016-08-04 09:03] LABS: BANDS 3 % (0-6); BASOPHILS 1 % (0-2); CORRECTED NUCLEATED RBC 8 /100 WBC (0-0); CORRECTED WBC 10.1 TH/MM3 (4.0-11.0); EOSINOPHILS 6 % (0-4); NEUTROPHIL # MANUAL DIFF 5.8 TH/MM3 (1.8-7.7); POLYS (SEG NEUTROPHILS) 54 % (16-70); WBC DIFF SAMPLE 100
[2016-08-04 09:04] LABS: SPHEROCYTES OCC (NORMAL); TARGET CELLS 1+ (NORMAL)
[2016-08-04 09:05] LABS: KERATOCYTES OCC (NORMAL); OVALOCYTES 1+ (NORMAL); PLATELET ESTIMATE SMEAR NORMAL (NORMAL); PLATELET MORPHOLOGY NORMAL (NORMAL); ROULEAUX PRESENT (NORMAL); SCAN/DIFF FINAL DIFF MANUAL; SICKLE CELLS 2+ (NORMAL)
[2016-08-04] MEDS: ENOXAPARIN SODIUM 40 MG/0.4 ML SYRINGE SQ SCH (11:55)
[2016-08-04 12:44] LABS: RETIC % 9.3 % (0.4-3.0)
[2016-08-04 12:45] LABS: REVIEW FLAG FINAL
[2016-08-04] MEDS: ONDANSETRON HCL 4 MG/2 ML VIAL IVP PRN (13:31)
--- NOTE | 2016-08-04 16:56 | HHI.PR ---
Subjective Remarks Patient seen earlier today at 11:30 am patient denies cp/sob denies fevers/chills wants to go home Objective Vitals Vital Signs Date Time Temp Pulse Resp B/P Pulse Ox O2 Delivery O2 Flow Rate FiO2 08/04/16 14:40 16 08/04/16 12:00 98.1 70 20 120/83 100 08/04/16 08:08 Room Air 2.00 21 08/04/16 08:05 97 Nasal Cannula 2.00 08/04/16 08:00 97.5 96 16 122/85 95 08/04/16 00:00 97.5 91 16 116/77 98 08/03/16 20:17 98 Nasal Cannula 2.00 08/03/16 20:00 99.0 102 18 134/86 95 I/O 08/03/16 08/03/16 08/03/16 08/04/16 08/04/16 08/04/16 06:59 14:59 22:59 06:59 14:59 22:59 Intake Total 1317 ml 1670 ml 400 ml 300 ml 1150 ml Balance 1317 ml 1670 ml 400 ml 300 ml 1150 ml Intake Oral 240 ml 620 ml 400 ml 300 ml 250 ml IV Total 1077 ml 1050 ml 900 ml # Voids 1 7 2 2 4 # Bowel Movements 0 0 0 0 Result Diagram: 08/04/16 0808 08/04/16 0808 Imaging Last Impressions Chest X-Ray 07/31/16 0752 Signed Impressions: Service Date/Time: Sunday, July 31, 2016 08:46 - CONCLUSION: No acute disease. Montez Medina Jr., MD Objective Remarks GENERAL: This is a well-nourished, well-developed patient, in no apparent distress. SKIN: Surgical scar over R upper back. No rashes, ecchymoses or lesions. Warm and dry. HEAD: Atraumatic. Normocephalic. EYES: Scleral icterus present. No injection or drainage. NECK: Trachea midline. No JVD. CARDIOVASCULAR: Regular rate and rhythm without murmurs, gallops, or rubs. RESPIRATORY: Clear to auscultation. Breath sounds equal bilaterally. No wheezes , rales, or rhonchi. GASTROINTESTINAL: Normoactive bowel sounds. Abdomen soft, non-tender, nondistended. No guarding. MUSCULOSKELETAL: No lower extremity edema or pain bilaterally. NEUROLOGICAL: Awake and alert. Motor grossly within normal limits. Normal speech. Procedures none Medications and IVs Current Medications Medications (Trade) Dose Ordered Sig/Abigail Route Start Time Stop Time Status Last Admin (NS 1000 ml Inj) 1,000 ml @ 150 mls/hr Q6H40M IV 07/31/16 10:11 08/04/16 13:32 (NS Flush) 2 ml UNSCH PRN IV FLUSH 07/31/16 10:15 (NS Flush) 2 ml BID IV FLUSH 07/31/16 21:00 08/04/16 08:47 (Tylenol) 650 mg Q4H PRN PO 07/31/16 10:15 (Zofran Inj) 4 mg Q6H PRN IVP 07/31/16 10:15 08/04/16 13:31 (Lovenox Inj) 40 mg Q24H SQ 07/31/16 11:00 08/04/16 11:55 (Dilaudid Pf Inj) 1 mg Q4H PRN IV PUSH 07/31/16 10:30 (Dilaudid Pf Inj) 2 mg Q4H PRN IV PUSH 07/31/16 10:30 08/04/16 13:31 (Norvasc) 5 mg DAILY PO 08/01/16 09:00 08/04/16 08:47 (Ecotrin Ec) 81 mg DAILY PO 07/31/16 17:00 08/04/16 08:47 (Folate) 1 mg DAILY PO 07/31/16 17:00 08/04/16 08:47 (Hydrea) 500 mg TID PO 07/31/16 18:00 08/04/16 11:58 (Benadryl) 25 mg Q6H PRN PO 08/01/16 07:45 08/03/16 13:14 Patient Own Medication PT OWN MED: JADENU ... DAILY PO 08/02/16 09:00 08/04/16 08:46 Urinary Catheter: No Vascular Central Line Catheter: No A/P Problem List: (1) SIRS (systemic inflammatory response syndrome) ICD Code: R65.10 Status: Resolved (2) Sickle cell anemia with crisis ICD Code: D57.00 Status: Acute (3) HTN (hypertension) ICD Code: I10 Status: Chronic (4) Dizziness ICD Code: R42 Status: Resolved (5) Hemochromatosis ICD Code: E83.119 Status: Chronic Assessment and Plan (1) SIRS (systemic inflammatory response syndrome) Present on admission. Patient afebrile. Chest x-ray reviewed by me without acute disease. Spinal hardware noted. UA negative. Leukocytosis likely secondary to stress and pain. Continue to monitor CBC Repeat CBC continues to show elevated white blood cell count, this could be secondary to hemolysis. 08/03 WBC trending down, today down to 12.4 K. 08/04 WBC now within normal range at 10.9 K. (2) Sickle cell anemia with crisis Plan: Patient presented with her usual low back pain as sternal chest pain. Hemoglobin was 7.4 and trended down to 6.9. Patient had an elevated reticulocyte count, low haptoglobin and increased LDH. EKG personally reviewed by me showed sinus rhythm without evidence of ischemia. Continue chemotherapy fluids, continue pain control with IV Dilaudid and oxygen. Continue hydroxyurea , aspirin, folic acid. 08/03 appreciate hematology consultation and recommendations. Patient has an elevated reticulocyte count of 8.1, haptoglobin still less than 10, LDH trending up to 424. Patient is status post transfusion of 1 unit of packed red blood cells with appropriate hemoglobin response. Hemoglobin went up from 6.9- 8.6. Hemoglobin today 8.3. Continue to monitor hemoglobin. Patient seems to still be hemolyzing. 08/04 hemoglobin stable at 8.3 with still elevated reticulocyte count of 9.3 and absolute reticulocyte count of 243.1. LDH is trending down from 424 - 381. Follow-up nephrology recommendations (3) HTN (hypertension) Plan: BP seems stable. Continue amlodipine. (4) Dizziness Plan: Likely due to anemia. Status post fusion of 1 unit PRBCs. Dizziness resolved. DVT prophylaxis: SCDs, Lovenox subcutaneously. Discharge Planning Possible discharge in a.m. Pending hematology clearance. Problem Qualifiers (1) HTN (hypertension): Qualified Code: I10 - Essential hypertension (2) Hemochromatosis: Qualified Code: E83.111 - Hemochromatosis due to repeated red blood cell transfusions Janak Kim MD August 04, 2016 16:56
--- NOTE | 2016-08-04 17:19 | PD.ONC.PN ---
Subjective Subjective Remarks No new complaints. Feels better, no dizziness. Objective Data Date Time Temp Pulse Resp B/P Pulse Ox O2 Delivery O2 Flow Rate FiO2 08/04/16 16:00 98.6 89 20 128/91 100 08/04/16 14:40 16 08/04/16 12:00 98.1 70 20 120/83 100 08/04/16 08:08 Room Air 2.00 21 08/04/16 08:05 97 Nasal Cannula 2.00 08/04/16 08:00 97.5 96 16 122/85 95 08/04/16 00:00 97.5 91 16 116/77 98 08/03/16 20:17 98 Nasal Cannula 2.00 08/03/16 20:00 99.0 102 18 134/86 95 08/04/16 08/04/16 08/04/16 07:00 15:00 23:00 Intake Total 300 ml 1870 ml Balance 300 ml 1870 ml Result Diagram: 08/04/16 0808 08/04/16 0808 Laboratory Results Laboratory Tests Test 08/04/16 08:08 White Blood Count 10.9 TH/MM3 Corrected White Blood Count 10.1 TH/MM3 Red Blood Count 2.59 MIL/MM3 Hemoglobin 8.3 GM/DL Hematocrit 23.6 % Mean Corpuscular Volume 91.3 FL Mean Corpuscular Hemoglobin 32.0 PG Mean Corpuscular Hemoglobin 35.0 % Concent Red Cell Distribution Width 19.4 % Platelet Count 248 TH/MM3 Mean Platelet Volume 8.4 FL Neutrophils (%) (Auto) % Lymphocytes (%) (Auto) % Monocytes (%) (Auto) % Eosinophils (%) (Auto) % Basophils (%) (Auto) % Neutrophils # (Auto) TH/MM3 Lymphocytes # (Auto) TH/MM3 Monocytes # (Auto) TH/MM3 Eosinophils # (Auto) TH/MM3 Basophils # (Auto) TH/MM3 CBC Comment AUTO DIFF Differential Total Cells 100 Counted Neutrophils % (Manual) 54 % Band Neutrophils % 3 % Lymphocytes % 30 % Monocytes % 6 % Eosinophils % 6 % Basophils % 1 % Neutrophils # (Manual) 5.8 TH/MM3 Nucleated Red Blood Cells 8 /100 WBC Differential Comment FINAL DIFF MANUAL Platelet Estimate NORMAL Platelet Morphology Comment NORMAL Basophilic Stippling MOD Spherocytes OCC Sickle Cells 2+ Target Cells 1+ Ovalocytes 1+ Rouleau PRESENT Keratocytes OCC Reticulocyte Count 9.3 % Absolute Reticulocyte Count 243.1 MIL/L Haptoglobin LESS THAN 10 MG/DL Sodium Level 143 MEQ/L Potassium Level 4.0 MEQ/L Chloride Level 107 MEQ/L Carbon Dioxide Level 28.1 MEQ/L Anion Gap 8 MEQ/L Blood Urea Nitrogen 6 MG/DL Creatinine 0.80 MG/DL Estimat Glomerular Filtration 100 ML/MIN Rate Random Glucose 89 MG/DL Calcium Level 8.4 MG/DL Lactate Dehydrogenase 381 U/L Administered Medications Medications (Trade) Dose Ordered Sig/Abigail Route PRN Reason Start Time Stop Time Status Last Admin Dose Admin Sodium Chloride (NS 1000 ml Inj) 1,000 ml @ 150 mls/hr Q6H40M IV 07/31/16 10:11 08/04/16 13:32 Sodium Chloride (NS Flush) 2 ml BID IV FLUSH 07/31/16 21:00 08/04/16 08:47 Ondansetron HCl (Zofran Inj) 4 mg Q6H PRN IVP NAUSEA OR VOMITING 07/31/16 10:15 08/04/16 13:31 Enoxaparin Sodium (Lovenox Inj) 40 mg Q24H SQ 07/31/16 11:00 08/04/16 11:55 Hydromorphone HCl (Dilaudid Pf Inj) 2 mg Q4H PRN IV PUSH PAIN SCALE 6 TO 10 07/31/16 10:30 08/04/16 13:31 Amlodipine Besylate (Norvasc) 5 mg DAILY PO 08/01/16 09:00 08/04/16 08:47 Aspirin (Ecotrin Ec) 81 mg DAILY PO 07/31/16 17:00 08/04/16 08:47 Folic Acid (Folate) 1 mg DAILY PO 07/31/16 17:00 08/04/16 08:47 Hydroxyurea (Hydrea) 500 mg TID PO 07/31/16 18:00 08/04/16 11:58 Diphenhydramine HCl (Benadryl) 25 mg Q6H PRN PO itching 08/01/16 07:45 08/03/16 13:14 Patient Own Medication PT OWN MED: JADENU ... DAILY PO 08/02/16 09:00 08/04/16 08:46 Objective Remarks GENERAL: Well-nourished, well-developed patient. SKIN: Warm and dry. HEAD: Normocephalic. EYES: Mild scleral icterus. No injection or drainage. NECK: Supple, trachea midline. No JVD or lymphadenopathy. LYMPHATIC: No adenopathy. CARDIOVASCULAR: Regular rate and rhythm without murmurs. RESPIRATORY: Breath sounds equal bilaterally. No accessory muscle use. GASTROINTESTINAL: Abdomen soft, non-tender, nondistended. EXTREMITIES: No cyanosis, or edema. MUSCULOSKELETAL: Adequate muscle tone. NEUROLOGICAL: No obvious focal deficit. Awake, alert, and oriented x3. PSYCHIATRIC: Appropriate mood and affect; insight and judgment normal. Assessment/Plan Problem List: (1) Sickle cell anemia with crisis Status: Acute Plan: 08/04/16. Clinically improved, hgb stable, symptoms better, pain controlled. Feels ready to go home tomorrow, recommend fu on in clinic hospital follow up. No additional transfusion needed. Bili at baseline. acute vaso occlusive crisis with worsen anemia, symptoms of dizziness Hgb improve- monitor stability iron overload- on Jadenu Assessment 35 y/o woman with SCD, anemia worsen with symptoms, improve post transfusion Plan 1. Continue supportive tx IVF hydration/pain meds/oxygen. 2. FU in clinic when DC home. 3. Monitor hgb Lilo Shea MD August 04, 2016 17:19
[2016-08-05] VITALS: BP 124/85; PULSE 81; RESP 16; TEMP 97.3; O2SAT 93
[2016-08-05] MEDS: ONDANSETRON HCL 4 MG/2 ML VIAL IVP PRN (04:55)
[2016-08-05] MEDS: HYDROmorphone HCL PF 2 MG/ML VIAL IV PUSH PRN ×3 (04:55→11:54)
[2016-08-05 05:50] LABS: HEMATOCRIT 25.5 % (35.0-46.0); MEAN CELL VOLUME 91.3 FL (80.0-100.0); MEAN CORPUSCULAR HEMOGLOBIN 30.6 PG (27.0-34.0); MEAN CORPUSCULAR HGB CONC 33.5 % (32.0-36.0); PLATELET COUNT 263 TH/MM3 (150-450); RED CELL DISTRIBUTION WIDTH 20.8 % (11.6-17.2); WHITE BLOOD COUNT 9.6 TH/MM3 (4.0-11.0)
[2016-08-05] MEDS: SODIUM CHLOR 0.9% 1000 ML INJ 1,000 ML IV SCH ×2 (05:55→12:46)
[2016-08-05 07:14] LABS: REVIEW FLAG FINAL
[2016-08-05 08:00] VITALS: O2SAT 96
[2016-08-05] MEDS: DEFERASIROX 180 MG PO SCH (08:41)
[2016-08-05] MEDS: SODIUM CHLORIDE 0.9% FLUSH 10 ML FLUSH IV FLUSH SCH (08:41)
[2016-08-05] MEDS: amLODIPine BESYLATE 5 MG TAB PO SCH (08:45)
[2016-08-05] MEDS: FOLIC ACID 1 MG TAB PO SCH (08:45)
[2016-08-05] MEDS: HYDROXYUREA 500 MG CAP PO SCH (08:45)
[2016-08-05] MEDS: ASPIRIN EC 81 MG TABEC PO SCH (08:45)
[2016-08-05 09:00] VITALS: BP 123/83; PULSE 87; RESP 16; TEMP 98.5; O2SAT 96
[2016-08-05 09:14] LABS: RETIC % 10.5 % (0.4-3.0)
--- NOTE | 2016-08-05 11:06 | EKG ---
Date Performed: 08/02/2016 Time Performed: 12:20:30 PTAGE: 35 years EKG: Sinus tachycardia. Normal ECG except for rate PREVIOUS TRACING : 08/02/2016 12.20 Since previous tracing, no significant change noted DOCTOR: Mary Jane Gomez Interpretating Date/Time 08/06/2016 08:51:07
[2016-08-05] MEDS: ENOXAPARIN SODIUM 40 MG/0.4 ML SYRINGE SQ SCH (11:53)
[2016-08-05 12:09] VITALS: BP 141/92; PULSE 83; RESP 15; TEMP 98.9; O2SAT 92
[2016-08-05 12:40] VITALS: RESP 18
--- NOTE | 2016-08-05 12:56 | HHI.DCPOC ---
Discharge Care Plan Diagnosis: (1) SIRS (systemic inflammatory response syndrome) (2) HTN (hypertension) (3) Hemochromatosis (4) Dizziness (5) Sickle cell anemia with crisis (6) Near syncope Goals to Promote Your Health * To prevent worsening of your condition and complications * To maintain your health at the optimal level Directions to Meet Your Goals Take your medications as prescribed Follow your dietary instruction Follow activity as directed Keep your appointments as scheduled Take your immunizations and boosters as scheduled If your symptoms worsen call your PCP, if no PCP go to Urgent Care Center or Emergency Room Smoking is Dangerous to Your Health. Avoid second hand smoke Call the 24-hour hour crisis hotline for domestic abuse at Janak Kim MD August 05, 2016 12:56
--- NOTE | 2016-08-05 13:00 | HHI.DS ---
Discharge Summary Admission Date July 31, 2016 at 10:22 Discharge Date: August 05, 2016 Admitting Diagnosis chest pain/near-syncope/sickle cell crisis (1) SIRS (systemic inflammatory response syndrome) ICD Code: R65.10 Diagnosis: Principal (2) Sickle cell anemia with crisis ICD Code: D57.00 Diagnosis: Principal (3) HTN (hypertension) ICD Code: I10 Diagnosis: Principal (4) Dizziness ICD Code: R42 Diagnosis: Principal (5) Hemochromatosis ICD Code: E83.119 Diagnosis: Principal Procedures none Brief History - From Admission 35-year-old -Indian female with sickle cell disease, hypertension, CKD , DVT well known to [place] presents with complaint of "sickle cell crisis". She states she started having pain everywhere yesterday and was also dizzy and presyncopal. She admits to chest pain with the crisis. She again had symptoms today. She took her home Dilaudid without relief. She denies any fevers or chills, cough or shortness of breath, nausea or vomiting, dysuria, or diarrhea. She last saw Dr. Shea her rn recovery approximately one week ago. CBC/BMP: 08/05/16 0542 08/04/16 0808 Significant Findings Laboratory Tests Test 08/02/16 08/03/16 08/04/16 08/05/16 18:05 06:30 08:08 05:42 Hemoglobin 8.6 GM/DL 8.3 GM/DL 8.3 GM/DL 8.6 GM/DL (11.6-15.3) (11.6-15.3) (11.6-15.3) (11.6-15.3) Hematocrit 25.2 % 24.6 % 23.6 % 25.5 % (35.0-46.0) (35.0-46.0) (35.0-46.0) (35.0-46.0) White Blood Count 12.4 TH/MM3 (4.0-11.0) Corrected White Blood Count 11.2 TH/MM3 (4.0-11.0) Red Blood Count 2.73 MIL/MM3 2.59 MIL/MM3 2.80 MIL/MM3 (4.00-5.30) (4.00-5.30) (4.00-5.30) Red Cell Distribution Width 17.9 % 19.4 % 20.8 % (11.6-17.2) (11.6-17.2) (11.6-17.2) Eosinophils % 9 % (0-4) 6 % (0-4) Nucleated Red Blood Cells 11 /100 WBC 8 /100 WBC (0-0) (0-0) Sickle Cells 1+ (NORMAL) 2+ (NORMAL) Reticulocyte Count 8.1 % (0.4-3.0) 9.3 % (0.4-3.0) 10.5 % (0.4-3.0) Absolute Reticulocyte Count 211.8 MIL/L 243.1 MIL/L 283.0 MIL/L (20.0-150.0) (20.0-150.0) (20.0-150.0) Haptoglobin LESS THAN 10 LESS THAN 10 LESS THAN 10 MG/DL (30-200) MG/DL (30-200) MG/DL (30-200) Chloride Level 108 MEQ/L (98-107) Calcium Level 8.2 MG/DL 8.4 MG/DL (8.5-10.1) (8.5-10.1) Total Bilirubin 1.5 MG/DL (0.2-1.0) Aspartate Amino Transf 60 U/L (15-37) (AST/SGOT) Lactate Dehydrogenase 424 U/L 381 U/L 428 U/L (84-246) (84-246) (84-246) Albumin 2.9 GM/DL (3.4-5.0) Basophilic Stippling MOD (NORMAL) Spherocytes OCC (NORMAL) Target Cells 1+ (NORMAL) Ovalocytes 1+ (NORMAL) Rouleau PRESENT (NORMAL) Keratocytes OCC (NORMAL) Blood Urea Nitrogen 6 MG/DL (7-18) Imaging Last Impressions Chest X-Ray 07/31/16 6837 Signed Impressions: Service Date/Time: Sunday, July 31, 2016 08:46 - CONCLUSION: No acute disease. Montez Medina Jr., MD PE at Discharge GENERAL: This is a well-nourished, well-developed patient, in no apparent distress. SKIN: Surgical scar over R upper back. No rashes, ecchymoses or lesions. Warm and dry. HEAD: Atraumatic. Normocephalic. EYES: Scleral icterus present. No injection or drainage. NECK: Trachea midline. No JVD. CARDIOVASCULAR: Regular rate and rhythm without murmurs, gallops, or rubs. RESPIRATORY: Clear to auscultation. Breath sounds equal bilaterally. No wheezes , rales, or rhonchi. GASTROINTESTINAL: Normoactive bowel sounds. Abdomen soft, non-tender, nondistended. No guarding. MUSCULOSKELETAL: No lower extremity edema or pain bilaterally. NEUROLOGICAL: Awake and alert. Motor grossly within normal limits. Normal speech. Hospital Course (1) SIRS (systemic inflammatory response syndrome) Present on admission. Patient afebrile. Chest x-ray reviewed by me without acute disease. Spinal hardware noted. UA negative. Leukocytosis likely secondary to stress and pain. Continue to monitor CBC Repeat CBC continues to show elevated white blood cell count, this could be secondary to hemolysis. 08/03 WBC trending down, today down to 12.4 K. 08/04 WBC now within normal range at 10.9 K. (2) Sickle cell anemia with crisis Patient presented with her usual low back pain as sternal chest pain. Hemoglobin was 7.4 and trended down to 6.9. Patient had an elevated reticulocyte count, low haptoglobin and increased LDH. EKG personally reviewed by me showed sinus rhythm without evidence of ischemia. Continue chemotherapy fluids, continue pain control with IV Dilaudid and oxygen. Continue hydroxyurea , aspirin, folic acid. 08/03 appreciate hematology consultation and recommendations. Patient has an elevated reticulocyte count of 8.1, haptoglobin still less than 10, LDH trending up to 424. Patient is status post transfusion of 1 unit of packed red blood cells with appropriate hemoglobin response. Hemoglobin went up from 6.9- 8.6. Hemoglobin today 8.3. Continue to monitor hemoglobin. Patient seems to still be hemolyzing. 08/04 hemoglobin stable at 8.3 with still elevated reticulocyte count of 9.3 and absolute reticulocyte count of 243.1. LDH is trending down from 424 - 381. (3) HTN (hypertension) BP seems stable. Continue amlodipine. (4) Dizziness Likely due to anemia. Status post fusion of 1 unit PRBCs. Dizziness resolved. DVT prophylaxis: SCDs, Lovenox subcutaneously. Pt Condition on Discharge: Stable Discharge Disposition: Discharge Home Discharge Time: <= 30 minutes Discharge Instructions DIET: Follow Instructions for: As Tolerated, No Restrictions Activities you can perform: Regular-No Restrictions Activities to Avoid: Strenuous Activity Follow up Referrals: Appointment for Follow Up - Next Day with Lilo Shea MD fu in clinic Continued Medications: Amlodipine (Amlodipine) 5 Mg Tab 5 MG PO DAILY Blood Pressure Management #30 Ref 0 TAB Aspirin (Aspirin) 81 Mg Tabdr 81 MG PO DAILY TAB Deferasirox (Jadenu) 90 Mg Tab DAILY Folic Acid (Folate) 1 Mg Tab 1 MG PO DAILY Nutritional Supplement Ref 0 TAB Hydroxyurea (Hydroxyurea) 500 Mg Cap 500 MG PO TID Ref 0 CAP Discontinued Medications: Hydromorphone (Dilaudid) 4 Mg Tab 4 MG PO Q4H PRN Pain Management Ref 0 TAB Janak Kim MD August 05, 2016 13:00
[2016-08-05] MEDS ORDERED: SODIUM CHLORIDE 0.9% FLUSH 10 ML FLUSH IV FLUSH PRN (15:15)
== END 2016-08-05 15:41 | disposition home or self-care (01) | DRG 812 ==
LOC: PHED 07:29 → PHEDA 09:46 → OBSVTOIN 10:22 → PH3A 11:01
PROVIDERS: ADMIT Family Medicine; ATTEND Family Medicine
PROC: 30233N1 Transfusion of Nonautologous Red Blood Cells into Peripheral Vein, Percutaneous Approach (ICD-10-PCS; principal; 2016-08-02)
DX: D57.00 Hb-SS disease with crisis, unspecified (principal); R65.10 Systemic inflammatory response syndrome (SIRS) of non-infectious origin without acute organ dysfunction; E83.111 Hemochromatosis due to repeated red blood cell transfusions; R42 Dizziness and giddiness; I12.9 Hypertensive chronic kidney disease with stage 1 through stage 4 chronic kidney disease, or unspecified chronic kidney disease; N18.9 Chronic kidney disease, unspecified; Z86.718 Personal history of other venous thrombosis and embolism; Z79.82 Long term (current) use of aspirin; Z96.643 Presence of artificial hip joint, bilateral; G43.909 Migraine, unspecified, not intractable, without status migrainosus; Z79.899 Other long term (current) drug therapy
CPT/HCPCS: 36430; 71010; 80048; 80053; 81001; 82550; 83010; 83615; 84484; 84703; 85007; 85014; 85018; 85025; 85027; 85044; 85660; 86140; 86850; 86900; 86901; 86920; 93005; 96361; 96365; 96366; 96367; 96374; 96375; 99213; G0463; J1170; J1200; J1642; J1650; J2405; J2550; J2997; J7030; J7050; P9016

== ENCOUNTER 2016-09-02 10:25 | Emergency (ER) | payer MEDICARE, OTHER ==
[~2016-09-02] VITALS: Ht 165.1 cm; Wt 64.0 kg
[~2016-09-02 10:25] MED LIST changes: -DILA4TAB2 PO; +[UNRECOGNIZED DRUG - CODE]; -[UNRECOGNIZED DRUG - CODE] PO
[2016-09-02 10:30] VITALS: BP 117/84; PULSE 100; RESP 16; TEMP 98.9; O2SAT 93
[2016-09-02] MEDS ORDERED: ONDANSETRON HCL 4 MG/2 ML VIAL IVP ONE (11:15)
[2016-09-02] MEDS ORDERED: SODIUM CHLOR 0.9% 1000 ML INJ 1,000 ML IV ONE (11:15)
[2016-09-02] MEDS ORDERED: HYDROmorphone HCL PF 1 MG/ML VIAL IVS ONE (11:15)
--- NOTE | 2016-09-02 11:22 | PD ---
HPI Chief Complaint: Sickle Cell Time Seen by Provider: 11:09 Travel History International Travel<30 days: No Contact w/Intl Traveler<30days: No Traveled to known affect area: No History of Present Illness HPI The patient was seen and examined in the presence of the nurse. This patient complains of sickle pain. Duration 2 days. Severity is reported as moderate. No alleviating factors. No injury. No fever. She had lab draw yesterday PFSH Past Medical History Hx Anticoagulant Therapy: Yes (asa 81mg) Anemia: Yes (SICKLE CELL) Arthritis: No Asthma: No Autoimmune Disease: No Blood Disorders: Yes (SICKLE CELL) Anxiety: No Depression: No Heart Rhythm Problems: No Cancer: No Cardiovascular Problems: Yes (htn on meds) High Cholesterol: No Chemotherapy: No Chest Pain: No Congestive Heart Failure: No COPD: No Cerebrovascular Accident: No Diabetes: No Diminished Hearing: No Deep Vein Thrombosis: Yes (HX LEFT ARM ) Endocrine: No Gastrointestinal Disorders: No GERD: No Glaucoma: No Genitourinary: No Headaches: Yes Hepatitis: No Hiatal Hernia: No Heparin Induced Thrombocytopen: No Hypertension: Yes Immune Disorder: Yes (SICKLE CELL) Implanted Vascular Access Dvce: Yes (POWER INFUSAPORT) Kidney Stones: No Musculoskeletal: Yes (SCOLIOSIS) Neurologic: No Psychiatric: No Reproductive: No Respiratory: No Immunizations Current: Yes Migraines: Yes Pneumonia: Yes Radiation Therapy: No Renal Failure: No Seizures: No Sickle Cell Disease: Yes Sleep Apnea: No Thyroid Disease: No Ulcer: No PNEUMOCCOCAL Vaccine (Year): 2008 Menopausal: No : 5 Para: 2 Miscarriage: 3 : 0 Ovarian Cysts: Yes Past Surgical History Abdominal Surgery: Yes (CHOLECYSTECTOMY) AICD: No Arteriovenous Shunt: No Body Medical Devices: CATIA IN UPPER BACK, INFUSAPORT RIGHT CHEST: 2014 Cardiac Surgery: No Cholecystectomy: Yes Ear Surgery: No Endocrine Surgery: No Eye Surgery: No Genitourinary Surgery: No Gynecologic Surgery: No Hysterectomy: No Insulin Pump: No Joint Replacement: Yes (R HIP REPLACEMENT 2011, L HIP 2014) Neurologic Surgery: No Oral Surgery: No Pacemaker: No Thoracic Surgery: No Other Surgery: Yes (INSERTION OF INFUSA PORTX 3) Social History Alcohol Use: Yes (occass. wine) Tobacco Use: No Substance Use: No Allergies-Medications (Allergen,Severity, Reaction): Coded Allergies: Toradol (Verified Allergy, Severe, Itching, 6/7/17) Morphine (Verified Allergy, Mild, Swelling, 09/02/16) Methadone (Verified Adverse Reaction, Severe, DEPRESSION, 09/02/16) Motrin (Verified Adverse Reaction, Severe, Urinary Freq (Inc/Dec), 09/02/16) RENAL FAILURE *MDRO Multi-Drug Resistant Organism (Verified Adverse Reaction, Unknown, ) VRE urine 2013 VRE screens NEGATIVE - 11/12/14 and 12/18/14 CLEARED PER INFECTION CONTROL Reported Meds & Prescriptions Reported Meds & Active Scripts Active Reported Dilaudid (Hydromorphone HCl) 4 Mg Tab 4 Mg PO Q6H PRN Hydrea (Hydroxyurea) 500 Mg Cap 500 Mg PO TID Folic Acid 400 Mcg Tab 1 Mg PO DAILY Aspirin 81 Mg Chew 81 Mg CHEW DAILY Jadenu (Deferasirox) 90 Mg Tab DAILY Amlodipine (Amlodipine Besylate) 5 Mg Tab 5 Mg PO DAILY Review of Systems General / Constitutional: No: Fever Eyes: No: Visual changes HENT: No: Headaches Cardiovascular: No: Chest Pain or Discomfort Respiratory: No: Shortness of Breath Gastrointestinal: No: Abdominal Pain Genitourinary: No: Dysuria Musculoskeletal: Positive: Pain Skin: No Rash Neurologic: No: Weakness Psychiatric: No: Depression Endocrine: No: Polydipsia Hematologic/Lymphatic: No: Easy Bruising Physical Exam Narrative GENERAL: Well-nourished, well-developed patient in no apparent distress. SKIN: Focused skin assessment reveals no rash and nodules. Skin is Warm and dry. HEAD: Atraumatic. Normocephalic. EYES: Pupils equal and round. No scleral icterus. No injection or drainage. ENT: No nasal bleeding or discharge. Mucous membranes pink and moist. NECK: Trachea midline. No JVD. CARDIOVASCULAR: Regular rate and rhythm. No murmur appreciated. RESPIRATORY: No accessory muscle use. Clear to auscultation. Breath sounds equal bilaterally. GASTROINTESTINAL: Abdomen soft, non-tender, nondistended. Hepatic and splenic margins not palpable. MUSCULOSKELETAL: No obvious deformities. No clubbing. No cyanosis. No edema. NEUROLOGICAL: Awake and alert. No obvious cranial nerve deficits. Motor grossly within normal limits. Normal speech. PSYCHIATRIC: Appropriate mood and affect; insight and judgment normal. Data Data Last Documented VS Vital Signs Date Time Temp Pulse Resp B/P Pulse Ox O2 Delivery O2 Flow Rate FiO2 09/02/16 12:48 61 16 98 Room Air 09/02/16 12:00 115/65 09/02/16 10:30 98.9 Orders Complete Blood Count With Diff (09/02/16 11:14) Ondansetron Inj (Zofran Inj) (09/02/16 11:15) Hydromorphone Pf Inj (Dilaudid Pf Inj) (09/02/16 11:15) Sodium Chlor 0.9% 1000 Ml Inj (Ns 1000 M (09/02/16 11:15) Heparin Central Flush (Heparin Central F (09/02/16 11:15) Labs Laboratory Tests Test 09/02/16 12:10 White Blood Count 15.0 TH/MM3 Corrected White Blood Count 13.0 TH/MM3 Red Blood Count 2.73 MIL/MM3 Hemoglobin 8.1 GM/DL Hematocrit 24.9 % Mean Corpuscular Volume 91.1 FL Mean Corpuscular Hemoglobin 29.8 PG Mean Corpuscular Hemoglobin 32.7 % Concent Red Cell Distribution Width 22.9 % Platelet Count 322 TH/MM3 Mean Platelet Volume 8.6 FL Neutrophils (%) (Auto) % Lymphocytes (%) (Auto) % Monocytes (%) (Auto) % Eosinophils (%) (Auto) % Basophils (%) (Auto) % Neutrophils # (Auto) TH/MM3 Lymphocytes # (Auto) TH/MM3 Monocytes # (Auto) TH/MM3 Eosinophils # (Auto) TH/MM3 Basophils # (Auto) TH/MM3 CBC Comment AUTO DIFF Differential Total Cells 100 Counted Neutrophils % (Manual) 63 % Lymphocytes % 24 % Monocytes % 7 % Eosinophils % 4 % Neutrophils # (Manual) 8.5 TH/MM3 Metamyelocytes 2 % Nucleated Red Blood Cells 15 /100 WBC Differential Comment AUTO DIFF CONFIRMED Platelet Estimate NORMAL Platelet Morphology Comment NORMAL Sickle Cells 2+ Target Cells 2+ Tear Drop Cells Ovalocytes 1+ Acanthocytes 1+ Keratocytes 1+ MDM Medical Decision Making Medical Screen Exam Complete: Yes Emergency Medical Condition: Yes Medical Record Reviewed: Yes Differential Diagnosis Sickle cell pain, narcotic seeking behavior, narcotic withdrawal Narrative Course I have reviewed the patient's electronic medical record. Reviewed her last 6 lab studies. She had blood drawn yesterday with hemoglobin of 8.4 which is baseline Port is accessed I gave her 1 L normal saline IV and a dose of IV Dilaudid and IV Zofran CBC shows hemoglobin of 8.1, similar to prior On recheck she is feeling improved Stable for outpatient hematology follow-up Diagnosis Primary Impression: Sickle cell anemia with pain Additional Instructions: The patient was advised to follow up with their physician and return if they worsen. Med/Other Pt SpecificInfo: Other Disposition: 01 DISCHARGE HOME Condition: Stable Sathya Pena MD Sep 02, 2016 11:22
[2016-09-02] MEDS ORDERED: HYDR500C PO (11:25)
[2016-09-02] MEDS ORDERED: ASPI81CH CHEW (11:25)
[2016-09-02] MEDS ORDERED: FOLI400T PO (11:25)
[2016-09-02] MEDS ORDERED: DILA4TAB2 PO (11:25)
[2016-09-02 12:00] VITALS: BP 115/65; PULSE 82; RESP 16; O2SAT 100
[2016-09-02 12:23] LABS: HEMATOCRIT 24.9 % (35.0-46.0); MEAN CELL VOLUME 91.1 FL (80.0-100.0); MEAN CORPUSCULAR HEMOGLOBIN 29.8 PG (27.0-34.0); MEAN CORPUSCULAR HGB CONC 32.7 % (32.0-36.0); PLATELET COUNT 322 TH/MM3 (150-450); RED BLOOD COUNT 2.73 MIL/MM3 (4.00-5.30); RED CELL DISTRIBUTION WIDTH 22.9 % (11.6-17.2)
[2016-09-02 12:27] LABS: HEMO FLAGS AUTO DIFF
[2016-09-02 12:33] VITALS: RESP 16
[2016-09-02 12:50] LABS: CORRECTED NUCLEATED RBC 15 /100 WBC (0-0); EOSINOPHILS 4 % (0-4); METAMYELOCYTES 2 % (0-1); NEUTROPHIL # MANUAL DIFF 8.5 TH/MM3 (1.8-7.7); POLYS (SEG NEUTROPHILS) 63 % (16-70); WBC DIFF SAMPLE 100
[2016-09-02 12:51] LABS: ACANTHOCYTES 1+ (NORMAL); KERATOCYTES 1+ (NORMAL); OVALOCYTES 1+ (NORMAL); SICKLE CELLS 2+ (NORMAL); TARGET CELLS 2+ (NORMAL); TEARDROP RBCS ND (NORMAL)
[2016-09-02 12:52] LABS: PLATELET ESTIMATE SMEAR NORMAL (NORMAL); PLATELET MORPHOLOGY NORMAL (NORMAL); SCAN/DIFF AUTO DIFF CONFIRMED
[2016-09-02 13:21] VITALS: BP 101/69
== END 2016-09-02 13:25 | disposition home or self-care (01) ==
LOC: PHED 10:25
DX: D57.1 Sickle-cell disease without crisis (principal)
CPT/HCPCS: 85025; 96361; 96374; 96375; 99284; J1170; J1642; J2405; J7030

== ENCOUNTER 2016-09-05 11:27 | Emergency (ER) | payer MEDICARE, OTHER ==
[~2016-09-05] VITALS: Ht 165.1 cm; Wt 64.0 kg
[~2016-09-05 11:27] MED LIST changes: -ASPI1TAB69 PO; +ASPI81CH CHEW; +DILA4TAB2 PO; -FOLI1TAB4 PO; +FOLI400T PO; +HYDR500C PO; -HYDR500C2 PO
[2016-09-05 11:31] VITALS: BP 121/74; PULSE 92; RESP 16; TEMP 98.4; O2SAT 95
[2016-09-05] MEDS ORDERED: SODIUM CHLOR 0.9% 1000 ML INJ 1,000 ML IV ONE (11:39)
[2016-09-05 11:41] VITALS: O2SAT 96
--- NOTE | 2016-09-05 11:42 | PD ---
HPI Chief Complaint: Sickle Cell Time Seen by Provider: 11:39 Travel History International Travel<30 days: No Contact w/Intl Traveler<30days: No Traveled to known affect area: No History of Present Illness HPI Patient presents with acute sickle cell pain. Duration 1 day. Severity is reported as moderate. No alleviating factors. No injury. No fever. She had lab drawn several days ago. Last attack 3 days ago. PFSH Past Medical History Hx Anticoagulant Therapy: Yes (asa 81mg) Anemia: Yes (SICKLE CELL) Arthritis: No Asthma: No Autoimmune Disease: No Blood Disorders: Yes (SICKLE CELL) Anxiety: No Depression: No Heart Rhythm Problems: No Cancer: No Cardiovascular Problems: Yes (htn on meds) High Cholesterol: No Chemotherapy: No Chest Pain: No Congestive Heart Failure: No COPD: No Cerebrovascular Accident: No Diabetes: No Diminished Hearing: No Deep Vein Thrombosis: Yes (HX LEFT ARM ) Endocrine: No Gastrointestinal Disorders: No GERD: No Glaucoma: No Genitourinary: No Headaches: Yes Hepatitis: No Hiatal Hernia: No Heparin Induced Thrombocytopen: No Hypertension: Yes Immune Disorder: Yes (SICKLE CELL) Implanted Vascular Access Dvce: Yes (POWER INFUSAPORT) Kidney Stones: No Musculoskeletal: Yes (SCOLIOSIS) Neurologic: No Psychiatric: No Reproductive: No Respiratory: No Immunizations Current: Yes Migraines: Yes Pneumonia: Yes Radiation Therapy: No Renal Failure: No Seizures: No Sickle Cell Disease: Yes Sleep Apnea: No Thyroid Disease: No Ulcer: No Tetanus Vaccination: < 5 Years Influenza Vaccination: Yes PNEUMOCCOCAL Vaccine (Year): 2008 ?: Not Menopausal: No : 5 Para: 2 Miscarriage: 3 : 0 Ovarian Cysts: Yes Past Surgical History Abdominal Surgery: Yes (CHOLECYSTECTOMY) AICD: No Arteriovenous Shunt: No Body Medical Devices: CATIA IN UPPER BACK, Cardiac Surgery: No Cholecystectomy: Yes Ear Surgery: No Endocrine Surgery: No Eye Surgery: No Genitourinary Surgery: No Gynecologic Surgery: No Hysterectomy: No Insulin Pump: No Joint Replacement: Yes (R HIP REPLACEMENT 2011, L HIP 2014) Neurologic Surgery: No Oral Surgery: No Pacemaker: No Thoracic Surgery: No Other Surgery: Yes (INSERTION OF INFUSA PORTX 3) Social History Alcohol Use: Yes (occass. wine) Tobacco Use: No Substance Use: No Allergies-Medications (Allergen,Severity, Reaction): Coded Allergies: Toradol (Verified Allergy, Severe, Itching, 09/05/16) Morphine (Verified Allergy, Mild, Swelling, 09/05/16) Methadone (Verified Adverse Reaction, Severe, DEPRESSION, 09/05/16) Motrin (Verified Adverse Reaction, Severe, Urinary Freq (Inc/Dec), 09/05/16 ) RENAL FAILURE *MDRO Multi-Drug Resistant Organism (Verified Adverse Reaction, Unknown, ) VRE urine 2013 VRE screens NEGATIVE - 11/12/14 and 12/18/14 CLEARED PER INFECTION CONTROL Reported Meds & Prescriptions Reported Meds & Active Scripts Active Reported Dilaudid (Hydromorphone HCl) 4 Mg Tab 4 Mg PO Q6H PRN Hydrea (Hydroxyurea) 500 Mg Cap 500 Mg PO TID Folic Acid 400 Mcg Tab 1 Mg PO DAILY Aspirin 81 Mg Chew 81 Mg CHEW DAILY Jadenu (Deferasirox) 90 Mg Tab DAILY Amlodipine (Amlodipine Besylate) 5 Mg Tab 5 Mg PO DAILY Review of Systems General / Constitutional: No: Fever Eyes: No: Visual changes HENT: No: Headaches Cardiovascular: No: Chest Pain or Discomfort Respiratory: No: Shortness of Breath Gastrointestinal: No: Abdominal Pain Genitourinary: No: Dysuria Musculoskeletal: No: Pain Skin: No Rash Neurologic: No: Weakness Psychiatric: No: Depression Endocrine: No: Polydipsia Hematologic/Lymphatic: No: Easy Bruising Physical Exam Narrative GENERAL: Well-nourished, well-developed patient. SKIN: Focused skin assessment warm/dry. HEAD: Normocephalic. EYES: No scleral icterus. No injection or drainage. NECK: Supple, trachea midline. No JVD or lymphadenopathy. CARDIOVASCULAR: Regular rate and rhythm without murmurs, gallops, or rubs. RESPIRATORY: Breath sounds equal bilaterally. No accessory muscle use. GASTROINTESTINAL: Abdomen soft, non-tender, nondistended. MUSCULOSKELETAL: No cyanosis, or edema. BACK: Nontender without obvious deformity. No CVA tenderness. Data Data Last Documented VS Vital Signs Date Time Temp Pulse Resp B/P Pulse Ox O2 Delivery O2 Flow Rate FiO2 09/05/16 12:41 86 16 99 09/05/16 11:41 Room Air 09/05/16 11:31 98.4 121/74 Orders Ecg Monitoring (09/05/16 11:39) Iv Access Insert/Monitor (09/05/16 11:39) Oximetry (09/05/16 11:39) Sodium Chloride 0.9% Flush (Ns Flush) (09/05/16 11:45) Sodium Chlor 0.9% 1000 Ml Inj (Ns 1000 M (09/05/16 11:39) Hydromorphone Pf Inj (Dilaudid Pf Inj) (09/05/16 11:45) Diphenhydramine Inj (Benadryl Inj) (09/05/16 11:45) Ondansetron Inj (Zofran Inj) (09/05/16 11:45) Hydromorphone Pf Inj (Dilaudid Pf Inj) (09/05/16 12:45) Heparin Central Flush (Heparin Central F (09/05/16 13:45) MDM Medical Decision Making Medical Screen Exam Complete: Yes Emergency Medical Condition: Yes Differential Diagnosis Sickle cell pain, malingering, dehydration Narrative Course Assessment and plan discussed with patient and at bedside. Patient received Dilaudid fluids and Benadryl with improvement of her pain to a level II Diagnosis Primary Impression: Sickle cell anemia with pain Patient Instructions: General Instructions Additional Instructions: Encouraged to stay well-hydrated. Follow-up with PCP. Return to emergency room with any onset of new symptoms. Med/Other Pt SpecificInfo: No Meds Exist/No RX given Disposition: 01 DISCHARGE HOME Condition: Good Eagle Dougherty MD Sep 05, 2016 11:42
[2016-09-05] MEDS ORDERED: diphenhydrAMINE HCL 50 MG/ML VIAL IV ONE (11:45)
[2016-09-05] MEDS ORDERED: SODIUM CHLORIDE 0.9% FLUSH 10 ML FLUSH IVF PRN (11:45)
[2016-09-05] MEDS ORDERED: HYDROmorphone HCL PF 1 MG/ML VIAL IVS ONE (11:45)
[2016-09-05] MEDS ORDERED: ONDANSETRON HCL 4 MG/2 ML VIAL IV PUSH ONE (11:45)
[2016-09-05 12:41] VITALS: PULSE 86; RESP 16; O2SAT 99
[2016-09-05] MEDS ORDERED: HYDROmorphone HCL PF 1 MG/ML VIAL IV PUSH ONE (12:45)
[2016-09-05 14:03] VITALS: BP 113/70; PULSE 80; RESP 16; O2SAT 94
== END 2016-09-05 14:15 | disposition home or self-care (01) ==
LOC: PHED 11:27
DX: D57.00 Hb-SS disease with crisis, unspecified (principal); I10 Essential (primary) hypertension; Z79.82 Long term (current) use of aspirin; Z86.79 Personal history of other diseases of the circulatory system; Z86.718 Personal history of other venous thrombosis and embolism; Z87.39 Personal history of other diseases of the musculoskeletal system and connective tissue; Z86.69 Personal history of other diseases of the nervous system and sense organs
CPT/HCPCS: 96361; 96374; 96375; 96376; 99284; J1170; J1200; J1642; J2405; J7030

== ENCOUNTER 2016-09-27 19:13 | Inpatient (IN) | payer MEDICARE, OTHER ==
[~2016-09-27] VITALS: Ht 165.1 cm; Wt 69.7 kg
[2016-09-27 19:22] VITALS: BP 114/75; PULSE 103; RESP 18; TEMP 98.7; O2SAT 92
[2016-09-27] MEDS ORDERED: SODIUM CHLOR 0.9% 1000 ML INJ 1,000 ML IV ONE (19:31)
[2016-09-27 19:34] LABS: MEAN CORPUSCULAR HGB CONC 36.1 % (32.0-36.0)
--- NOTE | 2016-09-27 19:36 | PD ---
HPI Chief Complaint: Sickle Cell Time Seen by Provider: 19:29 Travel History International Travel<30 days: No Contact w/Intl Traveler<30days: No Traveled to known affect area: No History of Present Illness HPI 35-year-old female with history of sickle cell disease here for evaluation of crisis related pain. The patient was sent for the last week she has been having chest pain and lower back pain which is her usual location for sickle cell pain crisis. She rates her pain as 9 out of 10, unrelieved with home pain medications. She denies dyspnea. No fevers or chills. She is followed by assembly hand Dr. Shea. [facility] Past Medical History Hx Anticoagulant Therapy: Yes (asa 81mg) Anemia: Yes (SICKLE CELL) Arthritis: No Asthma: No Autoimmune Disease: No Blood Disorders: Yes (SICKLE CELL) Anxiety: No Depression: No Heart Rhythm Problems: No Cancer: No Cardiovascular Problems: Yes (htn on meds) High Cholesterol: No Chemotherapy: No Chest Pain: No Congestive Heart Failure: No COPD: No Cerebrovascular Accident: No Diabetes: No Diminished Hearing: No Deep Vein Thrombosis: Yes (HX LEFT ARM ) Endocrine: No Gastrointestinal Disorders: No GERD: No Glaucoma: No Genitourinary: No Headaches: Yes Hepatitis: No Hiatal Hernia: No Heparin Induced Thrombocytopen: No Hypertension: Yes Immune Disorder: Yes (SICKLE CELL) Implanted Vascular Access Dvce: Yes (POWER INFUSAPORT) Kidney Stones: No Musculoskeletal: Yes (SCOLIOSIS) Neurologic: No Psychiatric: No Reproductive: No Respiratory: No Immunizations Current: Yes Migraines: Yes Pneumonia: Yes Radiation Therapy: No Renal Failure: No Seizures: No Sickle Cell Disease: Yes Sleep Apnea: No Thyroid Disease: No Ulcer: No PNEUMOCCOCAL Vaccine (Year): 2008 ?: Not LMP: 2 months ago Menopausal: No : 5 Para: 2 Miscarriage: 3 : 0 Ovarian Cysts: Yes Past Surgical History Abdominal Surgery: Yes (CHOLECYSTECTOMY) AICD: No Arteriovenous Shunt: No Body Medical Devices: CATIA IN UPPER BACK, Cardiac Surgery: No Cholecystectomy: Yes Ear Surgery: No Endocrine Surgery: No Eye Surgery: No Genitourinary Surgery: No Gynecologic Surgery: No Hysterectomy: No Insulin Pump: No Joint Replacement: Yes (R HIP REPLACEMENT 2011, L HIP 2014) Neurologic Surgery: No Oral Surgery: No Pacemaker: No Thoracic Surgery: No Other Surgery: Yes (INSERTION OF INFUSA PORTX 3) Social History Alcohol Use: Yes (occass. wine) Tobacco Use: No Substance Use: No Allergies-Medications (Allergen,Severity, Reaction): Coded Allergies: Toradol (Verified Allergy, Severe, Itching, 09/05/16) Morphine (Verified Allergy, Mild, Swelling, 09/05/16) Methadone (Verified Adverse Reaction, Severe, DEPRESSION, 09/05/16) Motrin (Verified Adverse Reaction, Severe, Urinary Freq (Inc/Dec), 09/05/16 ) RENAL FAILURE *MDRO Multi-Drug Resistant Organism (Verified Adverse Reaction, Unknown, ) VRE urine 2013 VRE screens NEGATIVE - 11/12/14 and 12/18/14 CLEARED PER INFECTION CONTROL Reported Meds & Prescriptions Reported Meds & Active Scripts Active Reported Dilaudid (Hydromorphone HCl) 4 Mg Tab 4 Mg PO Q6H PRN Hydrea (Hydroxyurea) 500 Mg Cap 500 Mg PO TID Folic Acid 400 Mcg Tab 1 Mg PO DAILY Aspirin 81 Mg Chew 81 Mg CHEW DAILY Jadenu (Deferasirox) 90 Mg Tab DAILY Amlodipine (Amlodipine Besylate) 5 Mg Tab 5 Mg PO DAILY Review of Systems Except as stated in HPI: all other systems reviewed are Neg Physical Exam Narrative GENERAL: Well-developed, well-nourished, no apparent distress, ambulated from triage to exam room without difficulty and without assistance. SKIN: Focused skin assessment warm/dry. HEAD: Atraumatic. Normocephalic. EYES: Pupils equal and round. No scleral icterus. No injection or drainage. ENT: Mucous membranes pink and moist. NECK: Trachea midline. No JVD. CARDIOVASCULAR: Regular rate and rhythm. RESPIRATORY: No accessory muscle use. Clear to auscultation. Breath sounds equal bilaterally. GASTROINTESTINAL: Abdomen soft, non-tender, nondistended. MUSCULOSKELETAL: No obvious deformities. No clubbing. No cyanosis. No edema. NEUROLOGICAL: Awake and alert. No obvious cranial nerve deficits. Motor grossly within normal limits. Normal speech. PSYCHIATRIC: Poor eye contact. Flat affect. Data Data Last Documented VS Vital Signs Date Time Temp Pulse Resp B/P Pulse Ox O2 Delivery O2 Flow Rate FiO2 09/27/16 19:50 99 Room Air 09/27/16 19:22 98.7 103 18 114/75 Orders Complete Blood Count With Diff (09/27/16 19:31) Comprehensive Metabolic Panel (09/27/16 19:31) Retic Count (09/27/16 19:31) Urinalysis - C+S If Indicated (09/27/16 19:31) Chest, Single Ap (09/27/16 19:31) Ecg Monitoring (09/27/16 19:31) Iv Access Insert/Monitor (09/27/16 19:31) Oximetry (09/27/16 19:31) Sodium Chloride 0.9% Flush (Ns Flush) (09/27/16 19:45) Sodium Chlor 0.9% 1000 Ml Inj (Ns 1000 M (09/27/16 19:31) Hydromorphone Pf Inj (Dilaudid Pf Inj) (09/27/16 19:45) Diphenhydramine Inj (Benadryl Inj) (09/27/16 19:45) Beta Hcg (Quant/Titer) (09/27/16 19:31) Ckmb (Isoenzyme) Profile (09/27/16 19:31) Troponin I (09/27/16 19:31) Blood Culture (09/27/16 21:09) Ceftriaxone Inj (Rocephin Inj) (09/27/16 21:15) Azithromycin Inj (Zithromax Inj) (09/27/16 21:15) Hydromorphone Pf Inj (Dilaudid Pf Inj) (09/27/16 21:15) Labs Laboratory Tests Test 09/27/16 20:00 White Blood Count 15.4 TH/MM3 Corrected White Blood Count 14.3 TH/MM3 Red Blood Count 2.27 MIL/MM3 Hemoglobin 7.4 GM/DL Hematocrit 20.5 % Mean Corpuscular Volume 90.5 FL Mean Corpuscular Hemoglobin 32.6 PG Mean Corpuscular Hemoglobin 36.1 % Concent Red Cell Distribution Width 25.7 % Platelet Count 312 TH/MM3 Mean Platelet Volume 8.7 FL Neutrophils (%) (Auto) % Lymphocytes (%) (Auto) % Monocytes (%) (Auto) % Eosinophils (%) (Auto) % Basophils (%) (Auto) % Neutrophils # (Auto) TH/MM3 Lymphocytes # (Auto) TH/MM3 Monocytes # (Auto) TH/MM3 Eosinophils # (Auto) TH/MM3 Basophils # (Auto) TH/MM3 CBC Comment AUTO DIFF Differential Total Cells 100 Counted Neutrophils % (Manual) 45 % Band Neutrophils % 1 % Lymphocytes % 42 % Monocytes % 5 % Eosinophils % 5 % Basophils % 1 % Neutrophils # (Manual) 6.7 TH/MM3 Metamyelocytes 1 % Nucleated Red Blood Cells 8 /100 WBC Differential Comment FINAL DIFF MANUAL Platelet Estimate NORMAL Platelet Morphology Comment NORMAL Polychromasia 2.5 % Sickle Cells 3+ [place] Bodies PRESENT Reticulocyte Count 15.7 % Absolute Reticulocyte Count 343.1 MIL/L Sodium Level 142 MEQ/L Potassium Level 4.5 MEQ/L Chloride Level 107 MEQ/L Carbon Dioxide Level 28.0 MEQ/L Anion Gap 7 MEQ/L Blood Urea Nitrogen 11 MG/DL Creatinine 1.40 MG/DL Estimat Glomerular Filtration 52 ML/MIN Rate Random Glucose 95 MG/DL Calcium Level 8.2 MG/DL Total Bilirubin 2.1 MG/DL Aspartate Amino Transf 56 U/L (AST/SGOT) Alanine Aminotransferase 30 U/L (ALT/SGPT) Alkaline Phosphatase 122 U/L Total Creatine Kinase 53 U/L Troponin I LESS THAN 0.02 NG/ML Total Protein 7.8 GM/DL Albumin 3.5 GM/DL Human Chorionic Gonadotropin, 5 MIU/ML Quant MDM Medical Decision Making Medical Screen Exam Complete: Yes Emergency Medical Condition: Yes Medical Record Reviewed: Yes Differential Diagnosis Vaso-occlusive crisis, acute chest syndrome, anemia, drug-seeking behavior Narrative Course Initial vital signs show heart rate 103, blood pressure 114/75, pulse ox 92% on room air, oral temp of 98.7F. CBC shows WBC 15.4, hemoglobin 7.4, hematocrit 20.5, platelets 312. CMP is remarkable for creatinine 1.4, GFR 52 which is around her baseline, T bili 2.1, otherwise essentially unremarkable. Cardiac enzymes are negative. Retake count of 15.7%. Chest x-ray: Mild atelectasis or consolidation at the medial right lung base. Patient was made aware of all findings. She was provided a dose of IV Dilaudid and a liter of normal saline IV. She now rates her pain as a 7 out of 10. On reassessment her heart rate is still 103 with an O2 saturation of 91% on room air. Given this with the above chest x-ray findings, the patient will be started on antibiotics and admitted for further treatment and evaluation of sickle cell pain crisis, pneumonia, rule out acute chest syndrome. Case discussed with hospitalist Dr. Moss who will admit the patient to her service. Diagnosis Primary Impression: Sickle cell anemia with pain Additional Impressions: PNA (pneumonia) Qualified Code: J18.9 - Pneumonia of right lung due to infectious organism, unspecified part of lung Hypoxia Admitting Information Admitting Physician Requests: Admit Rico Champion MD Sep 27, 2016 19:36
[2016-09-27] MEDS ORDERED: diphenhydrAMINE HCL 50 MG/ML VIAL IV ONE (19:45)
[2016-09-27] MEDS ORDERED: HYDROmorphone HCL PF 1 MG/ML VIAL IVS ONE (19:45)
[2016-09-27] MEDS ORDERED: SODIUM CHLORIDE 0.9% FLUSH 10 ML FLUSH IVF PRN (19:45)
--- NOTE | 2016-09-27 19:57 | RADRPT ---
EXAM DATE/TIME: 09/27/2016 19:35 [facility] COMPARISON: CHEST PA & LAT, July 06, 2016, 14:47. CHEST SINGLE AP, July 31, 2016, 8:46. INDICATIONS : Chest pain. MEDICAL HISTORY : Sickle Cell disease. SURGICAL HISTORY : Thoracic spine. Infusaport. ENCOUNTER: Initial ACUITY: 1 day PAIN SCORE: 4/10 LOCATION: Bilateral chest FINDINGS: The heart size is normal. There is a right internal jugular [id number] in place. Clips are seen w ith the upper mediastinum. There is mild increased density at the right medial base. The left lung is clear. Surgical hardware is seen at the right lateral thoracic spine. There is a dextroscoliosis of the thoracic spine. There is chronic sclerosis at the proximal left humerus likely from prior infarct . There is postsurgical change at the seventh right rib. CONCLUSION: Mild atelectasis or consolidation at the medial right lung base. Dejon Meléndez MD on September 27, 2016 at 19:52 Board Certified Radiologist. This report was verified electronically.
[2016-09-27 20:13] LABS: MEAN CELL VOLUME 90.5 FL (80.0-100.0); MEAN CORPUSCULAR HEMOGLOBIN 32.6 PG (27.0-34.0); PLATELET COUNT 312 TH/MM3 (150-450); RED BLOOD COUNT 2.27 MIL/MM3 (4.00-5.30); RED CELL DISTRIBUTION WIDTH 25.7 % (11.6-17.2); WHITE BLOOD COUNT 15.4 TH/MM3 (4.0-11.0)
[2016-09-27 20:19] LABS: CHLORIDE 107 MEQ/L (98-107); POTASSIUM 4.5 MEQ/L (3.5-5.1); SODIUM (NA) 142 MEQ/L (136-145)
[2016-09-27 20:23] LABS: ANION GAP 7 MEQ/L (5-15); BLOOD UREA NITROGEN 11 MG/DL (7-18)
[2016-09-27 20:26] LABS: ALT (GPT) 30 U/L (10-53); AST (GOT) 56 U/L (15-37); GLOMERULAR FILTRATION RATE 52 ML/MIN (>89)
[2016-09-27 20:28] LABS: TOTAL BILIRUBIN ADULT 2.1 MG/DL (0.2-1.0)
[2016-09-27 20:29] LABS: ALKALINE PHOSPHATASE 122 U/L (45-117); HEMO FLAGS AUTO DIFF
[2016-09-27 20:30] LABS: HEMATOCRIT 20.5 % (35.0-46.0)
[2016-09-27 20:31] LABS: BETA HCG QUANT 5 MIU/ML (0-5)
[2016-09-27 20:41] LABS: CREATINE KINASE 53 U/L (26-192)
[2016-09-27 20:54] LABS: BANDS 1 % (0-6); BASOPHILS 1 % (0-2); CORRECTED NUCLEATED RBC 8 /100 WBC (0-0); CORRECTED WBC 14.3 TH/MM3 (4.0-11.0); EOSINOPHILS 5 % (0-4); METAMYELOCYTES 1 % (0-1); NEUTROPHIL # MANUAL DIFF 6.7 TH/MM3 (1.8-7.7); POLYS (SEG NEUTROPHILS) 45 % (16-70); WBC DIFF SAMPLE 100
[2016-09-27 20:55] LABS: PLATELET ESTIMATE SMEAR NORMAL (NORMAL); PLATELET MORPHOLOGY NORMAL (NORMAL); SICKLE CELLS 3+ (NORMAL)
[2016-09-27 20:56] LABS: HOWELL-JOLLY BODIES PRESENT (NONE SEEN)
[2016-09-27 20:57] LABS: POLYCHROMASIA 2.5 % (0.0-1.9); SCAN/DIFF FINAL DIFF MANUAL
[2016-09-27 21:06] LABS: RETIC % 15.7 % (0.4-3.0)
[2016-09-27 21:08] LABS: REVIEW FLAG FINAL
[2016-09-27 21:10] VITALS: BP 104/60; PULSE 93; RESP 16; O2SAT 92
[2016-09-27] MEDS ORDERED: HYDROmorphone HCL PF 1 MG/ML VIAL IV PUSH ONE (21:15)
[2016-09-27] MEDS ORDERED: cefTRIAXone INJ 1,000 MG in SODIUM CHLORIDE 0.9% INJ 100 ML IV ONE (21:15)
[2016-09-27] MEDS ORDERED: AZITHROMYCIN INJ 500 MG in SODIUM CHLOR 0.9% 250 ML INJ 250 ML IV ONE (21:15)
[2016-09-27] MEDS ORDERED: ACETAMINOPHEN 325 MG TAB PO PRN (21:30)
[2016-09-27] MEDS ORDERED: RESP: ALBUTEROL 2.5 MG/IPRATROPIUM 0.5 MG NEB (PRN) NEB (21:30)
[2016-09-27] MEDS ORDERED: LACTULOSE SYRUP 20 GM/30 ML CUP PO PRN (21:30)
[2016-09-27] MEDS ORDERED: MAGNESIUM HYDROXIDE SUSP 30 ML CUP PO PRN (21:30)
[2016-09-27] MEDS ORDERED: SENNOSIDES 8.6 MG TAB PO PRN (21:30)
[2016-09-27] MEDS ORDERED: BISACODYL 10 MG SUPP RECTAL PRN (21:30)
[2016-09-27] MEDS ORDERED: diphenhydrAMINE HCL 50 MG/ML VIAL IV PUSH PRN (21:30)
[2016-09-27] MEDS ORDERED: SODIUM CHLORIDE 0.9% FLUSH 10 ML FLUSH IV FLUSH PRN (21:30)
[2016-09-27] MEDS: SODIUM CHLOR 0.9% 1000 ML INJ 1,000 ML IV SCH (22:07)
[2016-09-27 22:54] LABS: BLOOD, URINE SMALL (NEG); GLUCOSE,URINE NEG (NEG); KETONE, URINE NEG (NEG); NITRITE,URINE NEG (NEG)
[2016-09-27 23:06] LABS: URINE COLOR YELLOW (YELLW/STRAW)
[2016-09-27 23:07] LABS: MUCUS URINE OCC /lpf (OCC); SQUAMOUS EPITHELIAL CELL URINE > 8 /hpf (0-5)
[2016-09-27 23:10] LABS: BACTERIA, URINE OCC /hpf; COMMENT (UR) CULT NOT INDICATED; CULTURE IF INDICATED CULT NOT INDICATED
[2016-09-28] VITALS (7 sets, daily range): BP systolic 100–138; BP diastolic 65–92; PULSE 86–100; RESP 16–18; TEMP 96.6–98.1; O2SAT 90–99
[2016-09-28] MEDS: HYDROmorphone HCL PF 1 MG/ML VIAL IV PRN ×8 (00:54→21:28)
[2016-09-28] MEDS: SODIUM CHLOR 0.9% 1000 ML INJ 1,000 ML IV SCH ×3 (03:56→21:26)
[2016-09-28 06:46] LABS: MEAN CELL VOLUME 89.5 FL (80.0-100.0); MEAN CORPUSCULAR HGB CONC 35.8 % (32.0-36.0); PLATELET COUNT 298 TH/MM3 (150-450); RED CELL DISTRIBUTION WIDTH 25.7 % (11.6-17.2); WHITE BLOOD COUNT 15.5 TH/MM3 (4.0-11.0)
[2016-09-28 06:47] LABS: HEMO FLAGS AUTO DIFF
[2016-09-28 06:49] LABS: HEMATOCRIT 17.9 % (35.0-46.0)
[2016-09-28 06:51] LABS: CHLORIDE 108 MEQ/L (98-107); POTASSIUM 4.3 MEQ/L (3.5-5.1); SODIUM (NA) 143 MEQ/L (136-145)
[2016-09-28 06:58] LABS: ANION GAP 7 MEQ/L (5-15); BICARBONATE 27.9 MEQ/L (21.0-32.0); BLOOD UREA NITROGEN 9 MG/DL (7-18)
[2016-09-28] MEDS ORDERED: ACETAMINOPHEN 325 MG TAB PO PRN (07:00)
[2016-09-28] MEDS ORDERED: diphenhydrAMINE HCL 25 MG CAP PO PRN (07:00)
[2016-09-28] MEDS ORDERED: SODIUM CHLOR 0.9% 250 ML INJ 250 ML IV ONE (07:00)
[2016-09-28 07:01] LABS: ALT (GPT) 26 U/L (10-53); AST (GOT) 58 U/L (15-37); GLOMERULAR FILTRATION RATE 77 ML/MIN (>89)
[2016-09-28 07:03] LABS: TOTAL BILIRUBIN ADULT 1.8 MG/DL (0.2-1.0)
[2016-09-28 07:04] LABS: ALKALINE PHOSPHATASE 118 U/L (45-117)
[2016-09-28 07:30] LABS: CORRECTED NUCLEATED RBC 9 /100 WBC (0-0); CORRECTED WBC 14.2 TH/MM3 (4.0-11.0); EOSINOPHILS 5 % (0-4); NEUTROPHIL # MANUAL DIFF 4.1 TH/MM3 (1.8-7.7); POLYS (SEG NEUTROPHILS) 29 % (16-70); SCAN/DIFF FINAL DIFF MANUAL; SICKLE CELLS 2+ (NORMAL); WBC DIFF SAMPLE 100
[2016-09-28] MEDS: SODIUM CHLORIDE 0.9% FLUSH 10 ML FLUSH IV FLUSH SCH ×2 (09:00→20:15)
[2016-09-28] MEDS: ASPIRIN 81 MG CHEW TAB CHEW SCH (09:35)
[2016-09-28] MEDS: DOCUSATE SODIUM 50 MG/SENNA 8.6 MG TAB PO SCH ×2 (09:35→20:15)
[2016-09-28] MEDS: FOLIC ACID 1 MG TAB PO SCH (09:35)
[2016-09-28] MEDS: ENOXAPARIN SODIUM 40 MG/0.4 ML SYRINGE SQ SCH (09:36)
[2016-09-28] MEDS: HYDROXYUREA 500 MG CAP PO SCH ×3 (09:38→17:01)
--- NOTE | 2016-09-28 09:48 | MB ---
cc: ILDEFONSO VELASCO MD, RUBY ANNE E. M.D. DATE OF CONSULTATION: 09/28/2016 DATE OF : [address] Velasco CHIEF COMPLAINT [address] Velasco requests a consultation for April Flores regarding sickle-cell disease and acute vaso-occlusive pain crisis. HISTORY OF PRESENT ILLNESS Ms. Flores is a 35-year-old woman with sickle-cell disease and frequent vaso-occlusive pain crises. She is well-known to the hematology clinic. She was last seen at [facility] on Wednesday before her admission. She has some family stressors. Her fianc 's best friend was found . There is a possible case for the remote medical coder. The patient is also planning her wedding and reports a lot of stress with her bridesmaids. She denies any fevers, chills or night sweats. No sick contacts. She was treated in the hematology clinic on Wednesday with IV fluid hydration and pain medication. Her Dilaudid was refilled. Over the weekend her symptoms worsened. She presented to the emergency room and was noted to have worsened anemia. Her hemoglobin was 7.4. She was admitted for a vaso-occlusive pain crisis. The following morning her hemoglobin went down to 6.4. Her symptoms are much relieved with the supportive treatment. She is agreeable to transfusion. Her course is complicated by iron overload for which she is taking Jadenu. Her ferritin had recently gone down to 3000. She reports compliance with the medication. Her fianc is at bedside. The rest of her review of systems is negative. PAST MEDICAL HISTORY 1. Sickle-cell disease. 2. Frequent vaso-occlusive pain crises. 3. Iron overload. 4. History of avascular necrosis of both hips. 5. Scoliosis. 6. Multiple venous thromboembolic events. 7. Hypertension. 8. Chronic renal insufficiency. PAST SURGICAL HISTORY 1. Right hip replacement in 2010. 2. Left hip replacement in 2013. 3. Eidchw-L-Asci placement. 4. Cholecystectomy. 5. Back surgery. FAMILY HISTORY Both parents have trait. SOCIAL HISTORY She is engaged, pending to be in November. Her fianc is supportive. She denies any tobacco, alcohol or illicit drug use. ALLERGIES TORADOL. MEDICATIONS Current medications: 1. Ceftriaxone. 2. Azithromycin. 3. Aspirin. 4. Folic acid. 5. Hydrea. 6. Albuterol. 7. Hydromorphone p.r.n. 8. Lactulose p.r.n. PHYSICAL EXAMINATION VITAL SIGNS: Temperature 96.6, heart rate 98, respiratory rate 18, blood pressure 100/65, saturation 93%. GENERAL: Ms. Flores is a well-developed, well-nourished pleasant young woman in no acute distress. She seems to be comfortable. HEENT: Her pupils are round and reactive to light and accommodation. Oropharynx is clear. NECK: Supple. LUNGS: Clear to auscultation. CARDIOVASCULAR: Normal rate and rhythm. ABDOMEN: Benign. EXTREMITIES: Lower extremities with no clubbing, cyanosis or edema. Pneumatic compression stockings are in place. IMAGING Chest x-ray showed mild atelectasis or consolidation in the medial right lung base. ASSESSMENT AND PLAN Ms. Flores is a 35-year-old woman with sickle-cell disease and frequent vaso-occlusive pain crises. She is admitted for acute crisis that she could not manage at home. The case was discussed with Dr. Villagran. Will continue supportive treatment of oxygen and IV fluid hydration. We discussed the risk and benefit of transfusion. We having been trying to avoid transfusion but it helps her in times like this. Her hemoglobin is 6.4. She denies any bleeding or menses today. We will continue Jadenu to combat the iron overload on an outpatient basis. Supportive treatment is given for her acute vaso-occlusive pain crisis. We will continue p.r.n. pain medication. Her renal function appears to be stable. DVT prophylaxis with low-molecular weight heparin will continue. Her sickle-cell disease and vaso-occlusive pain crisis will be monitored by bilirubin, comprehensive metabolic profile and LDH. Her questions were answered to her satisfaction. Lilo Shea MD RAD/BT /8:46 AM /9:37 AM
--- NOTE | 2016-09-28 12:12 | HHI.HP ---
[facility] Lilo Shea MD Admission Diagnosis sickle cell crisis, pneumonia, hypoxia Diagnoses: Chief Complaint: Chest pain, sickle cell crisis. Travel History International Travel<30 Days: No Contact w/Intl Traveler <30 Da: No Traveled to Known Affected Are: No History of Present Illness Ms. Flores is a 35-year-old female with a history of sickle cell disease, hypertension, CKD, DVT who presented to the emergency department on 09/27 due to sickle cell vaso-occlusive crisis. For the last few days patient has been experiencing chest pain and today she started having cough as well. She follows up with cash shortage investigator Dr. Shea. Patient denies any fever or chills. No changes in bowel or bladder habits. Review of Systems Except as stated in HPI: all other systems reviewed are Neg Past Family Social History Past Medical History Sickle cell disease Avascular necrosis HTN Chronic kidney disease due to blood transfusion Iron overload DVT left arm Scoliosis Migraines because of medications. Has infusaport. Past Surgical History Right total hip replacement 2011 Left hip replacement 2014 cholecystectomy 2002 scoliosis surgery at age 15 (joey placed) [id number] R chest Reported Medications Dilaudid (Hydromorphone HCl) 4 Mg Tab 4 Mg PO Q6H PRN Hydrea (Hydroxyurea) 500 Mg Cap 500 Mg PO TID Folic Acid 400 Mcg Tab 1 Mg PO DAILY Aspirin 81 Mg Chew 81 Mg CHEW DAILY Jadenu (Deferasirox) 90 Mg Tab DAILY Amlodipine (Amlodipine Besylate) 5 Mg Tab 5 Mg PO DAILY Allergies: Coded Allergies: Toradol (Verified Allergy, Severe, Itching, 09/05/16) Morphine (Verified Allergy, Mild, Swelling, 09/05/16) Methadone (Verified Adverse Reaction, Severe, DEPRESSION, 09/05/16) Motrin (Verified Adverse Reaction, Severe, Urinary Freq (Inc/Dec), 09/05/16 ) RENAL FAILURE *MDRO Multi-Drug Resistant Organism (Verified Adverse Reaction, Unknown, ) VRE urine 2013 VRE screens NEGATIVE - 11/12/14 and 12/18/14 CLEARED PER INFECTION CONTROL Family History Mother: hypertension, sickle cell trait Father: diabetes, hypertension, and sickle cell trait Social History Denies cigarette smoking. Denies alcohol use. Physical Exam Vital Signs Vital Signs Date Time Temp Pulse Resp B/P Pulse Ox O2 Delivery O2 Flow Rate FiO2 09/28/16 10:08 18 09/28/16 08:00 97.9 98 18 120/77 92 09/28/16 08:00 93 Nasal Cannula 3.00 09/28/16 06:30 18 09/28/16 04:00 96.6 98 16 100/65 96 09/28/16 00:00 97.3 90 16 120/82 90 09/27/16 21:10 93 16 104/60 92 Room Air 09/27/16 19:50 99 Room Air 09/27/16 19:22 98.7 103 18 114/75 92 Physical Exam GENERAL: This is a well-nourished, well-developed patient, in no apparent distress. SKIN: No rashes, ecchymoses or lesions. Warm and dry. HEAD: Atraumatic. Normocephalic. No temporal or scalp tenderness. EYES: Pupils equal round and reactive. No injection or drainage. ENT: Nose without bleeding, purulent drainage or septal hematoma. Airway patent. NECK: Trachea midline. No lymphadenopathy. Supple, nontender, no meningeal signs. CARDIOVASCULAR: Regular rhythm and mildly tachycardic without murmurs, gallops, or rubs. No JVD. RESPIRATORY: Clear to auscultation. Breath sounds equal bilaterally. No wheezes , rales, or rhonchi. GASTROINTESTINAL: Abdomen soft, non-tender, nondistended. No guarding. MUSCULOSKELETAL: Extremities without clubbing, cyanosis, or edema. NEUROLOGICAL: Awake and alert. Cranial nerves II through XII intact. No focal neurological deficits. Normal speech. Laboratory Laboratory Tests Test 09/27/16 09/27/16 09/28/16 09/28/16 20:00 22:30 06:00 06:51 White Blood Count 15.4 15.5 Corrected White Blood Count 14.3 14.2 Red Blood Count 2.27 2.00 Hemoglobin 7.4 6.4 Hematocrit 20.5 17.9 Mean Corpuscular Volume 90.5 89.5 Mean Corpuscular Hemoglobin 32.6 32.0 Mean Corpuscular Hemoglobin 36.1 35.8 Concent Red Cell Distribution Width 25.7 25.7 Platelet Count 312 298 Mean Platelet Volume 8.7 8.8 Neutrophils (%) (Auto) Lymphocytes (%) (Auto) Monocytes (%) (Auto) Eosinophils (%) (Auto) Basophils (%) (Auto) Neutrophils # (Auto) Lymphocytes # (Auto) Monocytes # (Auto) Eosinophils # (Auto) Basophils # (Auto) CBC Comment AUTO DIFF AUTO DIFF Differential Total Cells 100 100 Counted Neutrophils % (Manual) 45 29 Band Neutrophils % 1 Lymphocytes % 42 59 Monocytes % 5 7 Eosinophils % 5 5 Basophils % 1 Neutrophils # (Manual) 6.7 4.1 Metamyelocytes 1 Nucleated Red Blood Cells 8 9 Differential Comment FINAL DIFF FINAL DIFF MANUAL MANUAL Platelet Estimate NORMAL Platelet Morphology Comment NORMAL Polychromasia 2.5 Sickle Cells 3+ 2+ [place] Bodies PRESENT Reticulocyte Count 15.7 Absolute Reticulocyte Count 343.1 Sodium Level 142 143 Potassium Level 4.5 4.3 Chloride Level 107 108 Carbon Dioxide Level 28.0 27.9 Anion Gap 7 7 Blood Urea Nitrogen 11 9 Creatinine 1.40 1.00 Estimat Glomerular Filtration 52 77 Rate Random Glucose 95 87 Calcium Level 8.2 8.5 Total Bilirubin 2.1 1.8 Aspartate Amino Transf 56 58 (AST/SGOT) Alanine Aminotransferase 30 26 (ALT/SGPT) Alkaline Phosphatase 122 118 Total Creatine Kinase 53 Troponin I LESS THAN 0.02 Total Protein 7.8 7.6 Albumin 3.5 3.4 Human Chorionic Gonadotropin, 5 Quant Urine Color YELLOW Urine Turbidity SLIGHT Urine pH 6.0 Urine Specific [place] 1.007 Urine Protein NEG Urine Glucose (UA) NEG Urine Ketones NEG Urine Occult Blood SMALL Urine Nitrite NEG Urine Bilirubin NEG Urine Leukocyte Esterase NEG Urine WBC 3-5 Urine Squamous Epithelial > 8 Cells Urine Amorphous Sediment FEW Urine Bacteria OCC Urine Mucus OCC Microscopic Urinalysis Comment CULT NOT INDICATED Crossmatch Leukocyte-Reduced Red Blood Cells Blood Bank Comment Test 09/28/16 07:20 Blood Type AB POSITIVE Antibody Screen NEGATIVE Result Diagram: 09/28/16 0600 09/28/16 0600 Imaging Last Impressions Chest X-Ray 09/27/16 193 Signed Impressions: Service Date/Time: Tuesday, September 27, 2016 19:35 - CONCLUSION: Mild atelectasis or consolidation at the medial right lung base. Dejon Meléndez MD Assessment and Plan Problem List: (1) Sickle cell anemia with crisis ICD Code: D57.00 Status: Acute (2) PNA (pneumonia) ICD Code: J18.9 Status: Acute (3) Acute chest syndrome ICD Code: D57.01 Status: Acute Assessment and Plan Ms. Flores is a 35 year old female with a history of sickle cell disease who presents to the emergency department on 09/27/2016 due to chest pain and sickle cell vaso-occlusive crisis. Patient denies any fever chills. However today she started having cough as well. - Probable acute chest syndrome - Sickle cell his occlusive crisis - Hgb 6.4. Transfused 1 unit of PRBCs. - Continue Folic acid, hydroxyurea - Hydromorphone IV when necessary for pain management - Dr. Shea already evaluated patient. - Probable community-acquired pneumonia - Chest x-ray reviewed by me on 09/28/2016 - shows right-sided consolidation versus atelectasis. - Patient is currently on azithromycin and ceftriaxone. We'll switch to Levaquin PO. - Will order Incentive spirometry and continue DuoNeb. Full code. Lovenox 40mg Q24hrs. Physician Certification 2 Midnight Certification Type: Admission for Inpatient Services Order for Inpatient Services The services are ordered in accordance with Medicare regulations or non- Medicare payer requirements, as applicable. In the case of services not specified as inpatient-only, they are appropriately provided as inpatient services in accordance with the 2-midnight benchmark. Estimated LOS (days): 2 days is the estimated time the patient will need to remain in the hospital, assuming treatment plan goals are met and no additional complications. Post-Hospital Plan: Home Problem Qualifiers (1) PNA (pneumonia): Qualified Code: J18.9 - Pneumonia of right lung due to infectious organism, unspecified part of lung Farhan Villagran DO Sep 28, 2016 12:12 pm
[2016-09-28] MEDS: LEVOFLOXACIN 750 MG TAB PO SCH (15:25)
[2016-09-28] MEDS ORDERED: cefTRIAXone INJ 1,000 MG in SODIUM CHLORIDE 0.9% INJ 100 ML IV SCH (22:00)
[2016-09-28] MEDS ORDERED: AZITHROMYCIN INJ 500 MG in SODIUM CHLOR 0.9% 250 ML INJ 250 ML IV SCH (22:00)
[2016-09-29] VITALS (9 sets, daily range): BP systolic 131–152; BP diastolic 85–107; PULSE 89–96; RESP 16–19; TEMP 97–98.2; O2SAT 94–99
[2016-09-29] MEDS: HYDROmorphone HCL PF 1 MG/ML VIAL IV PRN ×10 (00:34→23:31)
[2016-09-29] MEDS: SODIUM CHLOR 0.9% 1000 ML INJ 1,000 ML IV SCH ×3 (03:13→17:45)
[2016-09-29] MEDS: SODIUM CHLORIDE 0.9% FLUSH 10 ML FLUSH IV FLUSH SCH ×2 (09:00→20:22)
--- NOTE | 2016-09-29 09:18 | HHI.PR ---
Subjective Remarks Follow up for sickle cell anemia as well as sickle cell vasoocclusive crisis. Patient continues to have persistent chest pain. No fever, chills. Cough occurs when she uses incentive spirometer. Ambulating well. Objective Vitals Vital Signs Date Time Temp Pulse Resp B/P Pulse Ox O2 Delivery O2 Flow Rate FiO2 09/29/16 08:00 97.6 92 19 142/90 98 09/29/16 07:45 94 Nasal Cannula 2.00 09/29/16 04:00 98.0 90 18 134/90 97 09/29/16 00:25 89 09/29/16 00:00 98.2 92 18 139/96 99 09/28/16 20:30 98 Nasal Cannula 3.00 09/28/16 20:00 98.1 100 16 137/92 98 09/28/16 16:00 97.5 91 18 138/88 99 09/28/16 12:30 16 09/28/16 12:00 97.4 86 16 113/72 95 09/28/16 10:08 18 I/O 09/28/16 09/28/16 09/28/16 09/29/16 09/29/16 09/29/16 07:00 15:00 23:00 07:00 15:00 23:00 Intake Total 1240 ml 2910 ml 800 ml Balance 1240 ml 2910 ml 800 ml Intake Oral 1240 ml 460 ml IV Total 2200 ml 800 ml Packed Cells 250 ml # Voids 5 1 2 # Bowel Movements 0 0 0 Result Diagram: 09/28/16 0600 09/28/16 0600 Imaging Last Impressions Chest X-Ray 09/27/16 193 Signed Impressions: Service Date/Time: Tuesday, September 27, 2016 19:35 - CONCLUSION: Mild atelectasis or consolidation at the medial right lung base. Dejon Meléndez MD Objective Remarks GENERAL: AOX3, NAD. SKIN: Warm and dry. HEAD: Normocephalic. EYES: No scleral icterus. No injection or drainage. NECK: Supple, trachea midline. No JVD or lymphadenopathy. CARDIOVASCULAR: Regular rate and rhythm without murmurs, gallops, or rubs. RESPIRATORY: Breath sounds equal bilaterally. No accessory muscle use. GASTROINTESTINAL: Abdomen soft, non-tender, nondistended. MUSCULOSKELETAL: No cyanosis, or edema. BACK: Nontender without obvious deformity. No CVA tenderness. Procedures None. A/P Problem List: (1) Sickle cell anemia with crisis ICD Code: D57.00 Status: Acute (2) PNA (pneumonia) ICD Code: J18.9 Status: Acute (3) Acute chest syndrome ICD Code: D57.01 Status: Acute Assessment and Plan Ms. Flores is a 35 year old female with a history of sickle cell disease who presents to the emergency department on 09/27/2016 due to chest pain and sickle cell vaso-occlusive crisis. Patient denies any fever chills. However today she started having cough as well. - Probable acute chest syndrome - Sickle cell his occlusive crisis - Hgb 6.4. Transfused 1 unit of PRBCs on 09/28/2016. - Continue Folic acid, hydroxyurea - Hydromorphone IV when necessary for pain management - Dr. Shea already evaluated patient. - Will obtain CBC this morning. - Probable community-acquired pneumonia - Chest x-ray reviewed by me on 09/28/2016 - shows right-sided consolidation versus atelectasis. - Continue Levaquin PO. - Continue Incentive spirometry and continue DuoNeb. Full code. Lovenox 40mg Q24hrs. Discharge plan: Anticipate discharge 09/30/2016. Problem Qualifiers (1) PNA (pneumonia): Qualified Code: J18.9 - Pneumonia of right lung due to infectious organism, unspecified part of lung Farhan Villagran DO Sep 29, 2016 9:18 am
[2016-09-29] MEDS: ENOXAPARIN SODIUM 40 MG/0.4 ML SYRINGE SQ SCH (09:38)
[2016-09-29] MEDS: LEVOFLOXACIN 750 MG TAB PO SCH (09:38)
[2016-09-29] MEDS: DOCUSATE SODIUM 50 MG/SENNA 8.6 MG TAB PO SCH ×2 (09:38→20:22)
[2016-09-29] MEDS: ASPIRIN 81 MG CHEW TAB CHEW SCH (09:39)
[2016-09-29] MEDS: FOLIC ACID 1 MG TAB PO SCH (09:39)
[2016-09-29] MEDS: HYDROXYUREA 500 MG CAP PO SCH ×3 (09:47→18:27)
[2016-09-29 10:11] LABS: AUTOMATED NEUTROPHIL # 8.3 TH/MM3 (1.8-7.7); BASOPHIL % 0.3 % (0.0-2.0); EOSINOPHIL # 1.3 TH/MM3 (0-0.4); HEMATOCRIT 25.9 % (35.0-46.0); HEMO FLAGS AUTO DIFF; LYMPH % 20.7 % (9.0-44.0); LYMPHOCYTE # 2.8 TH/MM3 (1.0-4.8); MEAN CELL VOLUME 91.1 FL (80.0-100.0); MEAN CORPUSCULAR HEMOGLOBIN 30.2 PG (27.0-34.0); MEAN CORPUSCULAR HGB CONC 33.2 % (32.0-36.0); MONO % 7.4 % (0.0-8.0); NEUT % 61.6 % (16.0-70.0); PLATELET COUNT 328 TH/MM3 (150-450); RED BLOOD COUNT 2.84 MIL/MM3 (4.00-5.30); RED CELL DISTRIBUTION WIDTH 24.1 % (11.6-17.2); WHITE BLOOD COUNT 13.4 TH/MM3 (4.0-11.0)
[2016-09-29 10:56] LABS: CORRECTED NUCLEATED RBC 12 /100 WBC (0-0); EOSINOPHILS 9 % (0-4); NEUTROPHIL # MANUAL DIFF 5.8 TH/MM3 (1.8-7.7); POLYS (SEG NEUTROPHILS) 48 % (16-70); SICKLE CELLS 2+ (NORMAL); WBC DIFF SAMPLE 100
[2016-09-29 10:57] LABS: SCAN/DIFF FINAL DIFF MANUAL
[2016-09-30] VITALS: BP 130/87; PULSE 76; RESP 20; TEMP 97.4; O2SAT 94
[2016-09-30] MEDS: SODIUM CHLOR 0.9% 1000 ML INJ 1,000 ML IV SCH ×2 (00:29→13:45)
[2016-09-30] MEDS: HYDROmorphone HCL PF 1 MG/ML VIAL IV PRN ×5 (01:41→16:00)
[2016-09-30 08:50] VITALS: BP 135/94; PULSE 102; RESP 14; TEMP 98.3; O2SAT 94
[2016-09-30] MEDS: LEVOFLOXACIN 750 MG TAB PO SCH (08:52)
[2016-09-30] MEDS: ASPIRIN 81 MG CHEW TAB CHEW SCH (08:52)
[2016-09-30] MEDS: DOCUSATE SODIUM 50 MG/SENNA 8.6 MG TAB PO SCH (08:52)
[2016-09-30] MEDS: ENOXAPARIN SODIUM 40 MG/0.4 ML SYRINGE SQ SCH (08:53)
[2016-09-30] MEDS: FOLIC ACID 1 MG TAB PO SCH (08:53)
[2016-09-30] MEDS: SODIUM CHLORIDE 0.9% FLUSH 10 ML FLUSH IV FLUSH SCH (08:53)
[2016-09-30] MEDS: HYDROXYUREA 500 MG CAP PO SCH ×3 (09:00→18:23)
[2016-09-30] MEDS: ONDANSETRON HCL 4 MG/2 ML VIAL IVP PRN ×2 (09:23→18:18)
[2016-09-30 10:14] VITALS: O2SAT 96
[2016-09-30 12:28] VITALS: BP 135/90; PULSE 88; RESP 16; TEMP 97.7; O2SAT 98
--- NOTE | 2016-09-30 13:20 | HHI.PR ---
Objective Vitals Vital Signs Date Time Temp Pulse Resp B/P Pulse Ox O2 Delivery O2 Flow Rate FiO2 09/30/16 12:50 18 09/30/16 12:28 97.7 88 16 135/90 98 09/30/16 10:14 96 Nasal Cannula 2.00 09/30/16 08:50 98.3 102 14 135/94 94 09/30/16 00:00 97.4 76 20 130/87 94 09/29/16 21:15 95 Nasal Cannula 2.00 09/29/16 20:00 97.7 96 16 152/107 95 09/29/16 16:32 97.0 89 18 135/91 I/O 09/29/16 09/29/16 09/29/16 09/30/16 09/30/16 09/30/16 07:00 15:00 23:00 07:00 15:00 23:00 Intake Total 800 ml 780 ml 640 ml Balance 800 ml 780 ml 640 ml Intake Oral 780 ml 640 ml IV Total 800 ml # Voids 0 1 # Bowel Movements 0 0 Result Diagram: 09/29/16 0954 09/28/16 0600 Procedures None. A/P Problem List: (1) Sickle cell anemia with crisis ICD Code: D57.00 Status: Acute (2) PNA (pneumonia) ICD Code: J18.9 Status: Acute (3) Acute chest syndrome ICD Code: D57.01 Status: Acute Problem Qualifiers (1) PNA (pneumonia): Qualified Code: J18.9 - Pneumonia of right lung due to infectious organism, unspecified part of lung Janak Kim MD Sep 30, 2016 13:20
[2016-09-30 16:00] LABS: AUTOMATED NEUTROPHIL # 7.4 TH/MM3 (1.8-7.7); BASOPHIL # 0.2 TH/MM3 (0-0.2); BASOPHIL % 1.2 % (0.0-2.0); EOSINOPHIL # 1.1 TH/MM3 (0-0.4); EOSINOPHIL % 8.6 % (0.0-4.0); HEMATOCRIT 25.9 % (35.0-46.0); LYMPH % 23.8 % (9.0-44.0); LYMPHOCYTE # 3.1 TH/MM3 (1.0-4.8); MEAN CELL VOLUME 90.6 FL (80.0-100.0); MEAN CORPUSCULAR HEMOGLOBIN 30.3 PG (27.0-34.0); MEAN CORPUSCULAR HGB CONC 33.4 % (32.0-36.0); MONO % 9.5 % (0.0-8.0); NEUT % 56.9 % (16.0-70.0); PLATELET COUNT 335 TH/MM3 (150-450); RED BLOOD COUNT 2.86 MIL/MM3 (4.00-5.30); RED CELL DISTRIBUTION WIDTH 25.1 % (11.6-17.2)
[2016-09-30 16:10] LABS: CHLORIDE 109 MEQ/L (98-107); POTASSIUM 4.3 MEQ/L (3.5-5.1); SODIUM (NA) 143 MEQ/L (136-145)
[2016-09-30 16:14] LABS: ANION GAP 6 MEQ/L (5-15); BICARBONATE 27.8 MEQ/L (21.0-32.0); BLOOD UREA NITROGEN 11 MG/DL (7-18)
[2016-09-30 16:17] LABS: ALT (GPT) 28 U/L (10-53); AST (GOT) 45 U/L (15-37); GLOMERULAR FILTRATION RATE 82 ML/MIN (>89)
[2016-09-30 16:20] LABS: ALKALINE PHOSPHATASE 119 U/L (45-117)
[2016-09-30 17:03] LABS: BANDS 1 % (0-6); BASOPHILS 2 % (0-2); CORRECTED NUCLEATED RBC 8 /100 WBC (0-0); EOSINOPHILS 4 % (0-4); POLYS (SEG NEUTROPHILS) 60 % (16-70); WBC DIFF SAMPLE 100
[2016-09-30 17:04] LABS: SICKLE CELLS 2+ (NORMAL)
[2016-09-30 17:06] LABS: PLATELET ESTIMATE SMEAR NORMAL (NORMAL); PLATELET MORPHOLOGY NORMAL (NORMAL); SCAN/DIFF FINAL DIFF MANUAL; TARGET CELLS 1+ (NORMAL)
[2016-09-30 17:07] LABS: HEMO FLAGS AUTO DIFF; NEUTROPHIL # MANUAL DIFF 7.3 TH/MM3 (1.8-7.7)
[2016-09-30 17:29] VITALS: BP 142/87; PULSE 91; RESP 15; TEMP 99; O2SAT 97
--- NOTE | 2016-09-30 17:55 | HHI.DCPOC ---
Discharge Care Plan Diagnosis: (1) PNA (pneumonia) (2) Acute chest syndrome (3) Sickle cell anemia with crisis Goals to Promote Your Health * To prevent worsening of your condition and complications * To maintain your health at the optimal level Directions to Meet Your Goals Take your medications as prescribed Follow your dietary instruction Follow activity as directed Keep your appointments as scheduled Take your immunizations and boosters as scheduled If your symptoms worsen call your PCP, if no PCP go to Urgent Care Center or Emergency Room Smoking is Dangerous to Your Health. Avoid second hand smoke Call the 24-hour hour crisis hotline for domestic abuse at Janak Kim MD Sep 30, 2016 17:55
[2016-09-30] MEDS ORDERED: LEVA750T9 PO (17:58)
--- NOTE | 2016-09-30 18:09 | HHI.DS ---
Discharge Summary Admission Date Sep 27, 2016 at 21:29 Discharge Date: Sep 30, 2016 Admitting Diagnosis sickle cell crisis, pneumonia, hypoxia (1) Sepsis ICD Code: A41.9 Diagnosis: Principal (2) PNA (pneumonia) ICD Code: J18.9 Diagnosis: Principal (3) Sickle cell anemia with crisis ICD Code: D57.00 Diagnosis: Principal (4) Acute chest syndrome ICD Code: D57.01 Diagnosis: Principal Procedures None. Brief History - From Admission Ms. Flores is a 35-year-old female with a history of sickle cell disease, hypertension, CKD, DVT who presented to the emergency department on 09/27 due to sickle cell vaso-occlusive crisis. For the last few days patient has been experiencing chest pain and today she started having cough as well. She follows up with machine brush maker Dr. Shea. Patient denies any fever or chills. No changes in bowel or bladder habits. CBC/BMP: 09/30/16 1546 09/30/16 1546 Significant Findings Laboratory Tests Test 09/27/16 09/27/16 09/28/16 09/29/16 20:00 22:30 06:00 09:54 White Blood Count 15.4 TH/MM3 15.5 TH/MM3 13.4 TH/MM3 (4.0-11.0) (4.0-11.0) (4.0-11.0) Corrected White Blood Count 14.3 TH/MM3 14.2 TH/MM3 12.0 TH/MM3 (4.0-11.0) (4.0-11.0) (4.0-11.0) Red Blood Count 2.27 MIL/MM3 2.00 MIL/MM3 2.84 MIL/MM3 (4.00-5.30) (4.00-5.30) (4.00-5.30) Hemoglobin 7.4 GM/DL 6.4 GM/DL 8.6 GM/DL (11.6-15.3) (11.6-15.3) (11.6-15.3) Hematocrit 20.5 % 17.9 % 25.9 % (35.0-46.0) (35.0-46.0) (35.0-46.0) Mean Corpuscular Hemoglobin 36.1 % Concent (32.0-36.0) Red Cell Distribution Width 25.7 % 25.7 % 24.1 % (11.6-17.2) (11.6-17.2) (11.6-17.2) Eosinophils % 5 % (0-4) 5 % (0-4) 9 % (0-4) Nucleated Red Blood Cells 8 /100 WBC 9 /100 WBC 12 /100 WBC (0-0) (0-0) (0-0) Polychromasia 2.5 % (0.0-1.9) Sickle Cells 3+ (NORMAL) 2+ (NORMAL) 2+ (NORMAL) Reticulocyte Count 15.7 % (0.4-3.0) Absolute Reticulocyte Count 343.1 MIL/L (20.0-150.0) Creatinine 1.40 MG/DL (0.50-1.00) Estimat Glomerular Filtration 52 ML/MIN (>89) 77 ML/MIN (>89) Rate Calcium Level 8.2 MG/DL (8.5-10.1) Total Bilirubin 2.1 MG/DL 1.8 MG/DL (0.2-1.0) (0.2-1.0) Aspartate Amino Transf 56 U/L (15-37) 58 U/L (15-37) (AST/SGOT) Alkaline Phosphatase 122 U/L 118 U/L (45-117) (45-117) Troponin I LESS THAN 0.02 NG/ML (0.02-0.05) Urine Occult Blood SMALL (NEG) Urine Squamous Epithelial > 8 /hpf (0-5) Cells Urine Bacteria OCC /hpf (NONE) Lymphocytes % 59 % (9-44) Chloride Level 108 MEQ/L (98-107) Eosinophils (%) (Auto) 10.0 % (0.0-4.0) Neutrophils # (Auto) 8.3 TH/MM3 (1.8-7.7) Monocytes # (Auto) 1.0 TH/MM3 (0-0.9) Eosinophils # (Auto) 1.3 TH/MM3 (0-0.4) Test 09/30/16 15:46 White Blood Count 13.0 TH/MM3 (4.0-11.0) Corrected White Blood Count 12.0 TH/MM3 (4.0-11.0) Red Blood Count 2.86 MIL/MM3 (4.00-5.30) Hemoglobin 8.6 GM/DL (11.6-15.3) Hematocrit 25.9 % (35.0-46.0) Red Cell Distribution Width 25.1 % (11.6-17.2) Monocytes (%) (Auto) 9.5 % (0.0-8.0) Eosinophils (%) (Auto) 8.6 % (0.0-4.0) Monocytes # (Auto) 1.2 TH/MM3 (0-0.9) Eosinophils # (Auto) 1.1 TH/MM3 (0-0.4) Nucleated Red Blood Cells 8 /100 WBC (0-0) Sickle Cells 2+ (NORMAL) Target Cells 1+ (NORMAL) Chloride Level 109 MEQ/L (98-107) Estimat Glomerular Filtration 82 ML/MIN (>89) Rate Calcium Level 8.3 MG/DL (8.5-10.1) Aspartate Amino Transf 45 U/L (15-37) (AST/SGOT) Alkaline Phosphatase 119 U/L (45-117) Albumin 3.0 GM/DL (3.4-5.0) Imaging Last Impressions Chest X-Ray 09/27/161930 Signed Impressions: Service Date/Time: Tuesday, September 27, 2016 19:35 - CONCLUSION: Mild atelectasis or consolidation at the medial right lung base. Dejon Meléndez MD PE at Discharge GENERAL: AOX3, NAD. SKIN: Warm and dry. HEAD: Normocephalic. EYES: No scleral icterus. No injection or drainage. NECK: Supple, trachea midline. No JVD or lymphadenopathy. CARDIOVASCULAR: Regular rate and rhythm without murmurs, gallops, or rubs. RESPIRATORY: Breath sounds equal bilaterally. No accessory muscle use. GASTROINTESTINAL: Abdomen soft, non-tender, nondistended. MUSCULOSKELETAL: No cyanosis, or edema. BACK: Nontender without obvious deformity. No CVA tenderness. Pt update on day of discharge Patient denies chest pain, sob and cough. Patient admitted to home. Hemoglobin Hospital Course 1. Sepsis. Secondary to pneumonia. - Present on admission patient with leukocytosis and tachycardia. - Chest x-ray as as stated above. Urinalysis negative - Status post treatment with IV Rocephin and IV azithromycin, switch to oral Levaquin. - Patient will be discharged on oral Levaquin for 10 days. 2.- Probable acute chest syndrome - Sickle cell his occlusive crisis - Hgb 6.4. Transfused 1 unit of PRBCs on 09/28/2016. - Continue Folic acid, hydroxyurea - Hydromorphone IV when necessary for pain management - Dr. Shea already evaluated patient. - Hemoglobin remained stable after transfusion and symptoms resolved. Total bilirubin trended down from 2.1-1.0. 3. community-acquired pneumonia - Chest x-ray reviewed by me on 09/28/2016 - shows right-sided consolidation versus atelectasis. - Dc on Levaquin PO - Continue Incentive spirometry and continue DuoNeb. 4. CRISSY. - Likely prerenal azotemia from dehydration. Patient had a creatinine of 1.2 on admission. - Resolved after IV fluid administration. Creatinine 0.95 on day of discharge. Full code. Lovenox 40mg Q24hrs. Pt Condition on Discharge: Stable Discharge Disposition: Discharge Home Discharge Time: <= 30 minutes Discharge Instructions DIET: Follow Instructions for: As Tolerated, No Restrictions Activities you can perform: Regular-No Restrictions Follow up Referrals: Appointment for Follow Up - 1 Week with Lilo Shea MD PCP Follow-up - 1 Week New Medications: Levofloxacin (Levaquin) 750 Mg Tablet 750 MG PO DAILY Infection #10 TAB-CAP Continued Medications: Amlodipine (Amlodipine) 5 Mg Tab 5 MG PO DAILY Blood Pressure Management #30 Ref 0 TAB Aspirin (Aspirin) 81 Mg Chew 81 MG CHEW DAILY Blood Clot Prevention Ref 0 TAB Deferasirox (Jadenu) 90 Mg Tab DAILY Folic Acid (Folic Acid) 400 Mcg Tab 1 MG PO DAILY Nutritional Supplement Ref 0 TAB Hydromorphone (Dilaudid) 4 Mg Tab 4 MG PO Q6H PRN Pain Management Ref 0 TAB Hydroxyurea (Hydrea) 500 Mg Cap 500 MG PO TID SICKLE CELL Ref 0 CAP Janak Kim MD Sep 30, 2016 18:09
[2016-09-30 21:28] LABS: RETIC % 15.3 % (0.4-3.0)
[2016-09-30 21:34] LABS: REVIEW FLAG FINAL
== END 2016-09-30 19:50 | disposition home or self-care (01) | DRG 871 ==
LOC: PHED 19:13 → PHEDA 21:29 → PH3B 09-28 00:23
PROVIDERS: ADMIT Hospitalist; ATTEND Hospitalist
PROC: 30233N1 Transfusion of Nonautologous Red Blood Cells into Peripheral Vein, Percutaneous Approach (ICD-10-PCS; principal; 2016-09-28)
DX: A41.9 Sepsis, unspecified organism (principal); D57.01 Hb-SS disease with acute chest syndrome; N17.9 Acute kidney failure, unspecified; J18.9 Pneumonia, unspecified organism; E86.0 Dehydration; M41.9 Scoliosis, unspecified; R09.02 Hypoxemia; I12.9 Hypertensive chronic kidney disease with stage 1 through stage 4 chronic kidney disease, or unspecified chronic kidney disease; N18.9 Chronic kidney disease, unspecified; Z86.718 Personal history of other venous thrombosis and embolism; Z88.5 Allergy status to narcotic agent; Z88.6 Allergy status to analgesic agent; Z96.643 Presence of artificial hip joint, bilateral
CPT/HCPCS: 36430; 71010; 80053; 81001; 82550; 83010; 83615; 84484; 84702; 85007; 85027; 85044; 85660; 86850; 86900; 86901; 86920; 94150; 96361; 96374; 96375; J0456; J0696; J1170; J1200; J1642; J1650; J2405; J7030; J7050; P9016

== ENCOUNTER 2016-10-11 10:12 | Emergency (ER) | payer MEDICARE, OTHER ==
[~2016-10-11] VITALS: Ht 165.1 cm; Wt 65.1 kg
[~2016-10-11 10:12] MED LIST changes: +LEVA750T9 PO
[2016-10-11 10:16] VITALS: BP 114/69; PULSE 88; RESP 18; TEMP 98.5; O2SAT 92
[2016-10-11] MEDS ORDERED: SODIUM CHLOR 0.9% 1000 ML INJ 1,000 ML IV ONE (10:32)
--- NOTE | 2016-10-11 10:35 | PD ---
HPI Chief Complaint: Sickle Cell Time Seen by Provider: 10:32 Travel History International Travel<30 days: No Contact w/Intl Traveler<30days: No Traveled to known affect area: No History of Present Illness HPI 35-year-old female with history of sickle cell disease, recently hospitalized for pneumonia and released with Levaquin which she has been taking for the last week, presents to the ER today because she started having 2 days history of lower back and chest pains which she states happens when she gets her sickle cell disease. She states that another trigger may be that she is currently getting her menses. She denies any fevers, shortness of breath, coughing, vomiting, or any other symptoms. She states it feels like her usual crisis. Modifying Factors: None Associated Signs & Symptoms: Back pains, chest pains, sickle cell crisis Risk Factors: History of sickle cell, recent pneumonia PFSH Past Medical History Hx Anticoagulant Therapy: Yes (asa 81mg) Anemia: Yes (SICKLE CELL) Arthritis: No Asthma: No Autoimmune Disease: No Blood Disorders: Yes (SICKLE CELL) Anxiety: No Depression: No Heart Rhythm Problems: No Cancer: No Cardiovascular Problems: Yes (htn on meds) High Cholesterol: No Chemotherapy: No Chest Pain: No Congestive Heart Failure: No COPD: No Cerebrovascular Accident: No Diabetes: No Diminished Hearing: No Deep Vein Thrombosis: Yes (HX LEFT ARM ) Endocrine: No Gastrointestinal Disorders: No GERD: No Glaucoma: No Genitourinary: No Headaches: Yes Hepatitis: No Hiatal Hernia: No Heparin Induced Thrombocytopen: No Hypertension: Yes Immune Disorder: Yes (SICKLE CELL) Implanted Vascular Access Dvce: Yes (POWER INFUSAPORT) Kidney Stones: No Musculoskeletal: Yes (SCOLIOSIS) Neurologic: No Psychiatric: No Reproductive: No Respiratory: No Immunizations Current: Yes Migraines: Yes Pneumonia: Yes (CURRENTLY BEING TREATED ) Radiation Therapy: No Renal Failure: No Seizures: No Sickle Cell Disease: Yes Sleep Apnea: No Thyroid Disease: No Ulcer: No Tetanus Vaccination: < 5 Years Influenza Vaccination: Yes PNEUMOCCOCAL Vaccine (Year): 2008 ?: Not LMP: NOW Menopausal: No : 5 Para: 2 Miscarriage: 3 : 0 Ovarian Cysts: Yes Past Surgical History Abdominal Surgery: Yes (CHOLECYSTECTOMY) AICD: No Arteriovenous Shunt: No Body Medical Devices: CATIA IN UPPER BACK, Cardiac Surgery: No Cholecystectomy: Yes Ear Surgery: No Endocrine Surgery: No Eye Surgery: No Genitourinary Surgery: No Gynecologic Surgery: No Hysterectomy: No Insulin Pump: No Joint Replacement: Yes (R HIP REPLACEMENT 2011, L HIP 2014) Neurologic Surgery: No Oral Surgery: No Pacemaker: No Thoracic Surgery: No Other Surgery: Yes (INSERTION OF INFUSA PORTX 3) Social History Alcohol Use: Yes (occass. wine) Tobacco Use: No Substance Use: No Allergies-Medications (Allergen,Severity, Reaction): Coded Allergies: Toradol (Verified Allergy, Severe, Itching, 10/11/16) Morphine (Verified Allergy, Mild, Swelling, 10/11/16) Methadone (Verified Adverse Reaction, Severe, DEPRESSION, 10/11/16) Motrin (Verified Adverse Reaction, Severe, Urinary Freq (Inc/Dec), 10/11/16 ) RENAL FAILURE *MDRO Multi-Drug Resistant Organism (Verified Adverse Reaction, Unknown, ) VRE urine 2013 VRE screens NEGATIVE - 11/12/14 and 12/18/14 CLEARED PER INFECTION CONTROL Reported Meds & Prescriptions Reported Meds & Active Scripts Active Levaquin (Levofloxacin) 750 Mg Tablet 750 Mg PO DAILY Reported Dilaudid (Hydromorphone HCl) 4 Mg Tab 4 Mg PO Q6H PRN Hydrea (Hydroxyurea) 500 Mg Cap 500 Mg PO TID Folic Acid 400 Mcg Tab 1 Mg PO DAILY Aspirin 81 Mg Chew 81 Mg CHEW DAILY Jadenu (Deferasirox) 90 Mg Tab DAILY Amlodipine (Amlodipine Besylate) 5 Mg Tab 5 Mg PO DAILY Review of Systems Except as stated in HPI: all other systems reviewed are Neg Physical Exam Narrative GENERAL: Well-developed young after [place] female patient currently in mild distress. Awake and oriented 3. SKIN: Focused skin assessment warm/dry. HEAD: Atraumatic. Normocephalic. EYES: Pupils equal and round. No scleral icterus. No injection or drainage. ENT: No nasal bleeding or discharge. Mucous membranes pink and moist. NECK: Trachea midline. No JVD. CARDIOVASCULAR: Regular rate and rhythm. No murmur appreciated. RESPIRATORY: No accessory muscle use. Clear to auscultation. Breath sounds equal bilaterally. GASTROINTESTINAL: Abdomen soft, non-tender, nondistended. Hepatic and splenic margins not palpable. MUSCULOSKELETAL: No obvious deformities. No clubbing. No cyanosis. No edema. NEUROLOGICAL: Awake and alert. No obvious cranial nerve deficits. Motor grossly within normal limits. Normal speech. PSYCHIATRIC: Appropriate mood and affect; insight and judgment normal. Data Data Last Documented VS Vital Signs Date Time Temp Pulse Resp B/P Pulse Ox O2 Delivery O2 Flow Rate FiO2 10/11/16 12:49 72 16 99/57 100 Room Air 10/11/16 11:34 2 10/11/16 10:16 98.5 Orders C-Reactive Protein (Crp) (10/11/16 10:32) Complete Blood Count With Diff (10/11/16 10:32) Comprehensive Metabolic Panel (10/11/16 10:32) Retic Count (10/11/16 10:32) Urinalysis - C+S If Indicated (10/11/16 10:32) Chest, Single Ap (10/11/16 10:32) Ecg Monitoring (10/11/16 10:32) Iv Access Insert/Monitor (10/11/16 10:32) Oximetry (10/11/16 10:32) Ondansetron Inj (Zofran Inj) (10/11/16 10:45) Sodium Chloride 0.9% Flush (Ns Flush) (10/11/16 10:45) Sodium Chlor 0.9% 1000 Ml Inj (Ns 1000 M (10/11/16 10:32) Hydromorphone Pf Inj (Dilaudid Pf Inj) (10/11/16 10:45) Diphenhydramine Inj (Benadryl Inj) (10/11/16 10:45) Ed Urine Pregnancytest Poc (10/11/16 10:32) Hydromorphone Pf Inj (Dilaudid Pf Inj) (10/11/16 11:45) Labs Laboratory Tests Test 10/11/16 10/11/16 10:55 11:00 White Blood Count 12.0 TH/MM3 Corrected White Blood Count 11.4 TH/MM3 Red Blood Count 2.49 MIL/MM3 Hemoglobin 7.8 GM/DL Hematocrit 22.8 % Mean Corpuscular Volume 91.5 FL Mean Corpuscular Hemoglobin 31.3 PG Mean Corpuscular Hemoglobin 34.2 % Concent Red Cell Distribution Width 23.5 % Platelet Count 359 TH/MM3 Mean Platelet Volume 8.1 FL Neutrophils (%) (Auto) % Lymphocytes (%) (Auto) % Monocytes (%) (Auto) % Eosinophils (%) (Auto) % Basophils (%) (Auto) % Neutrophils # (Auto) TH/MM3 Lymphocytes # (Auto) TH/MM3 Monocytes # (Auto) TH/MM3 Eosinophils # (Auto) TH/MM3 Basophils # (Auto) TH/MM3 CBC Comment AUTO DIFF Differential Total Cells 100 Counted Neutrophils % (Manual) 58 % Band Neutrophils % 1 % Lymphocytes % 28 % Monocytes % 4 % Eosinophils % 9 % Neutrophils # (Manual) 6.7 TH/MM3 Nucleated Red Blood Cells 5 /100 WBC Differential Comment FINAL DIFF MANUAL Sickle Cells 2+ Reticulocyte Count 9.6 % Absolute Reticulocyte Count 228.7 MIL/L Sodium Level 141 MEQ/L Potassium Level 4.3 MEQ/L Chloride Level 109 MEQ/L Carbon Dioxide Level 25.6 MEQ/L Anion Gap 6 MEQ/L Blood Urea Nitrogen 14 MG/DL Creatinine 1.00 MG/DL Estimat Glomerular Filtration 77 ML/MIN Rate Random Glucose 86 MG/DL Calcium Level 8.7 MG/DL Total Bilirubin 1.9 MG/DL Aspartate Amino Transf 36 U/L (AST/SGOT) Alanine Aminotransferase 19 U/L (ALT/SGPT) Alkaline Phosphatase 113 U/L C-Reactive Protein 1.00 MG/DL Total Protein 7.8 GM/DL Albumin 3.6 GM/DL Urine Collection Type CLEAN CATCH Urine Color YELLOW Urine Turbidity CLEAR Urine pH 6.5 Urine Specific Council 1.010 Urine Protein NEG mg/dL Urine Glucose (UA) NEG mg/dL Urine Ketones NEG mg/dL Urine Occult Blood TRACE Urine Nitrite NEG Urine Bilirubin NEG Urine Leukocyte Esterase NEG Urine RBC 0-3 /hpf Urine Squamous Epithelial 0-5 /hpf Cells Microscopic Urinalysis Comment CULT NOT INDICATED MDM Medical Decision Making Medical Screen Exam Complete: Yes Emergency Medical Condition: Yes Medical Record Reviewed: Yes Interpretation(s) Laboratory Tests Test 10/11/16 10/11/16 10:55 11:00 White Blood Count 12.0 TH/MM3 (4.0-11.0) Corrected White Blood Count 11.4 TH/MM3 (4.0-11.0) Red Blood Count 2.49 MIL/MM3 (4.00-5.30) Hemoglobin 7.8 GM/DL (11.6-15.3) Hematocrit 22.8 % (35.0-46.0) Red Cell Distribution Width 23.5 % (11.6-17.2) Eosinophils % 9 % (0-4) Nucleated Red Blood Cells 5 /100 WBC (0-0) Sickle Cells 2+ (NORMAL) Reticulocyte Count 9.6 % (0.4-3.0) Absolute Reticulocyte Count 228.7 MIL/L (20.0-150.0) Chloride Level 109 MEQ/L (98-107) Estimat Glomerular Filtration 77 ML/MIN (>89) Rate Total Bilirubin 1.9 MG/DL (0.2-1.0) C-Reactive Protein 1.00 MG/DL (0.00-0.30) Urine Occult Blood TRACE (NEG) Last 24 hours Impressions Chest X-Ray 10/11/16 1032 Signed Impressions: Service Date/Time: Tuesday, October 11, 2016 11:15 - CONCLUSION: No acute disease. Candido Garces MD Differential Diagnosis Chest pains, back painssickle cell crisis versus musculoskeletal versus dehydration versus worsening pneumonia Narrative Course Lab work shows anemia which is fairly baseline for this patient. Her chest x- ray was unremarkable. Reticulocyte, was up. At this point, it appears that she is having a sickle cell pain crisis. I do not seen signs of pneumonia or other acute processes. On reevaluation at 12:45 PM, she is feeling improved. I have offered to admit the patient versus close outpatient therapy. Patient declines admission at this time and states she is comfortable with following up. My plan would be to release her with symptomatically relief or pain and follow-up with primary care physician and rate and cost analyst. Return for any worsening in symptoms as needed. The plan has been discussed with her and she states understanding. Diagnosis Primary Impression: Sickle cell anemia with crisis Med/Other Pt SpecificInfo: Prescription(s) given Scripts Hydrocodone-Acetaminophen (Lortab)5-325 Mg Tab1-2 Tab PO Q6H PRN (PAIN) #20 TAB Ref 0 Prov:Junior Becerra MD 10/11/16 Disposition: 01 DISCHARGE HOME Condition: Stable Junior Becerra MD Oct 11, 2016 10:35
[2016-10-11] MEDS ORDERED: ONDANSETRON HCL 4 MG/2 ML VIAL IVP ONE (10:45)
[2016-10-11] MEDS ORDERED: SODIUM CHLORIDE 0.9% FLUSH 10 ML FLUSH IVF PRN (10:45)
[2016-10-11] MEDS ORDERED: diphenhydrAMINE HCL 50 MG/ML VIAL IV ONE (10:45)
[2016-10-11] MEDS ORDERED: HYDROmorphone HCL PF 1 MG/ML VIAL IVS ONE (10:45)
[2016-10-11 10:57] VITALS: O2SAT 92
[2016-10-11 10:57] LABS: HEMATOCRIT 22.8 % (35.0-46.0); MEAN CELL VOLUME 91.5 FL (80.0-100.0); MEAN CORPUSCULAR HEMOGLOBIN 31.3 PG (27.0-34.0); MEAN CORPUSCULAR HGB CONC 34.2 % (32.0-36.0); PLATELET COUNT 359 TH/MM3 (150-450); RED BLOOD COUNT 2.49 MIL/MM3 (4.00-5.30); RED CELL DISTRIBUTION WIDTH 23.5 % (11.6-17.2)
[2016-10-11 11:01] LABS: HEMO FLAGS AUTO DIFF
[2016-10-11 11:10] LABS: CHLORIDE 109 MEQ/L (98-107); POTASSIUM 4.3 MEQ/L (3.5-5.1); SODIUM (NA) 141 MEQ/L (136-145)
[2016-10-11 11:13] LABS: ANION GAP 6 MEQ/L (5-15); BICARBONATE 25.6 MEQ/L (21.0-32.0)
[2016-10-11 11:14] LABS: BLOOD UREA NITROGEN 14 MG/DL (7-18)
[2016-10-11 11:16] LABS: ALT (GPT) 19 U/L (10-53); AST (GOT) 36 U/L (15-37)
[2016-10-11 11:17] LABS: GLOMERULAR FILTRATION RATE 77 ML/MIN (>89)
[2016-10-11 11:18] LABS: BLOOD, URINE TRACE (NEG); GLUCOSE,URINE NEG (NEG); KETONE, URINE NEG (NEG); NITRITE,URINE NEG (NEG); PH, URINE 6.5 (5.0-8.5)
[2016-10-11 11:18] LABS: TOTAL BILIRUBIN ADULT 1.9 MG/DL (0.2-1.0)
[2016-10-11 11:19] LABS: ALKALINE PHOSPHATASE 113 U/L (45-117)
[2016-10-11 11:22] LABS: METHOD OF COLLECTION CLEAN CATCH; URINE COLOR YELLOW (YELLW/STRAW)
[2016-10-11 11:23] LABS: COMMENT (UR) CULT NOT INDICATED; CULTURE IF INDICATED CULT NOT INDICATED; RBC, URINE 0-3 /hpf (0-3); SQUAMOUS EPITHELIAL CELL URINE 0-5 /hpf (0-5)
[2016-10-11 11:26] LABS: BANDS 1 % (0-6); CORRECTED NUCLEATED RBC 5 /100 WBC (0-0); CORRECTED WBC 11.4 TH/MM3 (4.0-11.0); EOSINOPHILS 9 % (0-4); NEUTROPHIL # MANUAL DIFF 6.7 TH/MM3 (1.8-7.7); POLYS (SEG NEUTROPHILS) 58 % (16-70); WBC DIFF SAMPLE 100
[2016-10-11 11:27] LABS: SCAN/DIFF FINAL DIFF MANUAL; SICKLE CELLS 2+ (NORMAL)
[2016-10-11 11:34] VITALS: PULSE 85; RESP 16; O2SAT 100
[2016-10-11] MEDS ORDERED: HYDROmorphone HCL PF 1 MG/ML VIAL IV PUSH ONE (11:45)
--- NOTE | 2016-10-11 11:54 | RADRPT ---
EXAM DATE/TIME: 10/11/2016 11:15 [facility] COMPARISON: CHEST SINGLE AP, September 27, 2016, 19:35. INDICATIONS : Chest pain, palpitations MEDICAL HISTORY : Sickle Cell disease. SURGICAL HISTORY : Spinal, infusaport ENCOUNTER: Initial ACUITY: 1 day PAIN SCORE: 7/10 LOCATION: Bilateral chest FINDINGS: A single view of the chest demonstrates the lungs to be symmetrically aerated without evidence of mas s, infiltrate or effusion. The cardiomediastinal contours are unremarkable. Fixation joey from the pr oximal to the lower thoracic spine is stable. A mild sclerotic disease is identified in both humeral heads. [id number] is in stable position. CONCLUSION: No acute disease. Candido Garces MD on October 11, 2016 at 11:51 Board Certified Radiologist. This report was verified electronically.
[2016-10-11 11:58] LABS: RETIC % 9.6 % (0.4-3.0)
[2016-10-11 11:59] LABS: REVIEW FLAG FINAL
[2016-10-11 12:49] VITALS: BP 99/57; PULSE 72; RESP 16; O2SAT 100
[2016-10-11] MEDS ORDERED: HYDR-3533 PO (12:52)
[2016-10-11] MEDS ORDERED: HEPARIN SODIUM - IV 10,000 UNITS/10 ML VIAL IV ONE (13:00)
== END 2016-10-11 13:28 | disposition home or self-care (01) ==
LOC: PHED 10:12
DX: D57.00 Hb-SS disease with crisis, unspecified (principal); M54.5 Low back pain; R07.9 Chest pain, unspecified; I10 Essential (primary) hypertension; Z79.82 Long term (current) use of aspirin; Z86.2 Personal history of diseases of the blood and blood-forming organs and certain disorders involving the immune mechanism; Z86.79 Personal history of other diseases of the circulatory system; Z86.718 Personal history of other venous thrombosis and embolism; Z87.39 Personal history of other diseases of the musculoskeletal system and connective tissue; Z86.69 Personal history of other diseases of the nervous system and sense organs
CPT/HCPCS: 71010; 80053; 81001; 84703; 85007; 85027; 85044; 86140; 96361; 96374; 96375; 96376; 99284; J1170; J1200; J1642; J2405; J7030

== ENCOUNTER 2016-10-31 09:20 | Emergency (ER) | payer MEDICARE, OTHER ==
[~2016-10-31] VITALS: Ht 165.1 cm; Wt 65.0 kg
[~2016-10-31 09:20] MED LIST changes: +HYDR-3533 PO
[2016-10-31 09:23] VITALS: BP 135/85; PULSE 92; RESP 18; TEMP 98.7; O2SAT 100
[2016-10-31 09:29] VITALS: RESP 18; O2SAT 100
[2016-10-31] MEDS ORDERED: SODIUM CHLOR 0.9% 1000 ML INJ 1,000 ML IV ONE (10:00)
[2016-10-31] MEDS ORDERED: ONDANSETRON HCL 4 MG/2 ML VIAL IVP ONE (10:00)
[2016-10-31] MEDS ORDERED: HYDROmorphone HCL PF 1 MG/ML VIAL IVS ONE (10:00)
--- NOTE | 2016-10-31 10:06 | PD ---
HPI Chief Complaint: Sickle Cell Time Seen by Provider: 09:53 Travel History International Travel<30 days: No Contact w/Intl Traveler<30days: No Traveled to known affect area: No History of Present Illness HPI The patient was seen and examined in the presence of the nurse. This patient complains of sickle pain. Primarily occurring in her arms. No injury or fever. Symptom severity is appearing mild. She looks to be in no distress or pain. Duration one day. No alleviating factors. PFSH Past Medical History Hx Anticoagulant Therapy: Yes (asa 81mg) Anemia: Yes (SICKLE CELL) Arthritis: No Asthma: No Autoimmune Disease: No Blood Disorders: Yes (SICKLE CELL) Anxiety: No Depression: No Heart Rhythm Problems: No Cancer: No Cardiovascular Problems: Yes (htn on meds) High Cholesterol: No Chemotherapy: No Chest Pain: No Congestive Heart Failure: No COPD: No Cerebrovascular Accident: No Diabetes: No Diminished Hearing: No Deep Vein Thrombosis: Yes (HX LEFT ARM ) Endocrine: No Gastrointestinal Disorders: No GERD: No Glaucoma: No Genitourinary: No Headaches: Yes Hepatitis: No Hiatal Hernia: No Heparin Induced Thrombocytopen: No Hypertension: Yes Immune Disorder: Yes (SICKLE CELL) Implanted Vascular Access Dvce: Yes (POWER INFUSAPORT) Kidney Stones: No Musculoskeletal: Yes (SCOLIOSIS) Neurologic: No Psychiatric: No Reproductive: No Respiratory: No Immunizations Current: Yes Migraines: Yes Pneumonia: Yes (CURRENTLY BEING TREATED ) Radiation Therapy: No Renal Failure: No Seizures: No Sickle Cell Disease: Yes Sleep Apnea: No Thyroid Disease: No Ulcer: No PNEUMOCCOCAL Vaccine (Year): 2008 Menopausal: No : 5 Para: 2 Miscarriage: 3 : 0 Ovarian Cysts: Yes Past Surgical History Abdominal Surgery: Yes (CHOLECYSTECTOMY) AICD: No Arteriovenous Shunt: No Body Medical Devices: CATIA IN UPPER BACK, Cardiac Surgery: No Cholecystectomy: Yes Ear Surgery: No Endocrine Surgery: No Eye Surgery: No Genitourinary Surgery: No Gynecologic Surgery: No Hysterectomy: No Insulin Pump: No Joint Replacement: Yes (R HIP REPLACEMENT 2011, L HIP 2014) Neurologic Surgery: No Oral Surgery: No Pacemaker: No Thoracic Surgery: No Other Surgery: Yes (INSERTION OF INFUSA PORTX 3) Social History Alcohol Use: Yes (occass. wine) Tobacco Use: No Substance Use: No Allergies-Medications (Allergen,Severity, Reaction): Coded Allergies: Toradol (Verified Allergy, Severe, Itching, 10/31/16) Morphine (Verified Allergy, Mild, Swelling, 10/31/16) Methadone (Verified Adverse Reaction, Severe, DEPRESSION, 10/31/16) Motrin (Verified Adverse Reaction, Severe, Urinary Freq (Inc/Dec), 10/31/16) RENAL FAILURE *MDRO Multi-Drug Resistant Organism (Verified Adverse Reaction, Unknown, ) VRE urine 2013 VRE screens NEGATIVE - 11/12/14 and 12/18/14 CLEARED PER INFECTION CONTROL Reported Meds & Prescriptions Reported Meds & Active Scripts Active Reported Dilaudid (Hydromorphone HCl) 4 Mg Tab 4 Mg PO Q6H PRN Hydrea (Hydroxyurea) 500 Mg Cap 500 Mg PO TID Folic Acid 400 Mcg Tab 1 Mg PO DAILY Aspirin 81 Mg Chew 81 Mg CHEW DAILY Jadenu (Deferasirox) 90 Mg Tab DAILY Amlodipine (Amlodipine Besylate) 5 Mg Tab 5 Mg PO DAILY Review of Systems General / Constitutional: No: Fever Eyes: No: Visual changes HENT: No: Headaches Cardiovascular: No: Chest Pain or Discomfort Respiratory: No: Shortness of Breath Gastrointestinal: No: Abdominal Pain Genitourinary: No: Dysuria Musculoskeletal: Positive: Pain Skin: No Rash Neurologic: No: Weakness Psychiatric: No: Depression Endocrine: No: Polydipsia Hematologic/Lymphatic: No: Easy Bruising Physical Exam Narrative GENERAL: Well-nourished, well-developed patient in no apparent distress. SKIN: Focused skin assessment reveals no rash and nodules. Skin is Warm and dry. HEAD: Atraumatic. Normocephalic. EYES: Pupils equal and round. No scleral icterus. No injection or drainage. ENT: No nasal bleeding or discharge. Mucous membranes pink and moist. NECK: Trachea midline. No JVD. CARDIOVASCULAR: Regular rate and rhythm. No murmur appreciated. RESPIRATORY: No accessory muscle use. Clear to auscultation. Breath sounds equal bilaterally. GASTROINTESTINAL: Abdomen soft, non-tender, nondistended. Hepatic and splenic margins not palpable. MUSCULOSKELETAL: No obvious deformities. No clubbing. No cyanosis. No edema. NEUROLOGICAL: Awake and alert. No obvious cranial nerve deficits. Motor grossly within normal limits. Normal speech. PSYCHIATRIC: Appropriate mood and affect; insight and judgment normal. Data Data Last Documented VS Vital Signs Date Time Temp Pulse Resp B/P Pulse Ox O2 Delivery O2 Flow Rate FiO2 10/31/16 09:29 18 100 Nasal Cannula 2 10/31/16 09:23 98.7 92 135/85 Orders Sodium Chlor 0.9% 1000 Ml Inj (Ns 1000 M (10/31/16 10:00) Heparin Central Flush (Heparin Central F (10/31/16 10:00) Ondansetron Inj (Zofran Inj) (10/31/16 10:00) Hydromorphone Pf Inj (Dilaudid Pf Inj) (10/31/16 10:00) Complete Blood Count With Diff (10/31/16 10:00) Labs Laboratory Tests Test 10/31/16 10:18 White Blood Count 11.6 TH/MM3 Red Blood Count 2.70 MIL/MM3 Hemoglobin 8.3 GM/DL Hematocrit 24.8 % Mean Corpuscular Volume 92.0 FL Mean Corpuscular Hemoglobin 30.8 PG Mean Corpuscular Hemoglobin 33.5 % Concent Red Cell Distribution Width 22.2 % Platelet Count 323 TH/MM3 Mean Platelet Volume 8.4 FL Neutrophils (%) (Auto) 52.8 % Lymphocytes (%) (Auto) 29.5 % Monocytes (%) (Auto) 8.8 % Eosinophils (%) (Auto) 7.8 % Basophils (%) (Auto) 1.1 % Neutrophils # (Auto) 6.2 TH/MM3 Lymphocytes # (Auto) 3.4 TH/MM3 Monocytes # (Auto) 1.0 TH/MM3 Eosinophils # (Auto) 0.9 TH/MM3 Basophils # (Auto) 0.1 TH/MM3 CBC Comment AUTO DIFF [facility] Medical Decision Making Medical Screen Exam Complete: Yes Emergency Medical Condition: Yes Medical Record Reviewed: Yes Differential Diagnosis Sickle pain, sickle cell crisis, narcotic seeking behavior, narcotic withdrawal Narrative Course I have reviewed the patient's electronic medical record. Patient is a extremely frequent visitor to the ER. She comes many times requesting IV Dilaudid for her sickle pain Her port is accessed I gave her 1 mg IV Dilaudid and 4 g IV Zofran and 1 L normal saline IV bolus Her last hemoglobin was 8.7 CBC done revealing a hemoglobin today of 8.3 Her vital signs and exam are normal. She looks clinically well. She does not look like she is in pain Situation reviewed with her and mother at bedside Recommend she follow up with her manager marketing sales Diagnosis Primary Impression: Sickle cell anemia with pain Additional Instructions: The patient was advised to follow up with their physician and return if they worsen. Med/Other Pt SpecificInfo: Other Disposition: 01 DISCHARGE HOME Condition: Stable Sathya Pena MD Oct 31, 2016 10:05
[2016-10-31 10:26] LABS: AUTOMATED NEUTROPHIL # 6.2 TH/MM3 (1.8-7.7); BASOPHIL # 0.1 TH/MM3 (0-0.2); BASOPHIL % 1.1 % (0.0-2.0); EOSINOPHIL # 0.9 TH/MM3 (0-0.4); EOSINOPHIL % 7.8 % (0.0-4.0); HEMATOCRIT 24.8 % (35.0-46.0); LYMPH % 29.5 % (9.0-44.0); LYMPHOCYTE # 3.4 TH/MM3 (1.0-4.8); MEAN CORPUSCULAR HEMOGLOBIN 30.8 PG (27.0-34.0); MEAN CORPUSCULAR HGB CONC 33.5 % (32.0-36.0); MONO % 8.8 % (0.0-8.0); NEUT % 52.8 % (16.0-70.0); PLATELET COUNT 323 TH/MM3 (150-450); RED CELL DISTRIBUTION WIDTH 22.2 % (11.6-17.2); WHITE BLOOD COUNT 11.6 TH/MM3 (4.0-11.0)
[2016-10-31 10:30] LABS: HEMO FLAGS AUTO DIFF
[2016-10-31 11:11] LABS: EOSINOPHILS 3 % (0-4); NEUTROPHIL # MANUAL DIFF 5.2 TH/MM3 (1.8-7.7); PLATELET ESTIMATE SMEAR NORMAL (NORMAL); PLATELET MORPHOLOGY ENLARGED (NORMAL); POLYS (SEG NEUTROPHILS) 45 % (16-70); SICKLE CELLS 1+ (NORMAL); WBC DIFF SAMPLE 100
[2016-10-31 11:12] LABS: SCAN/DIFF FINAL DIFF MANUAL
[2016-10-31 11:34] VITALS: BP 130/80
== END 2016-10-31 11:55 | disposition home or self-care (01) ==
LOC: PHED 09:20
DX: D57.1 Sickle-cell disease without crisis (principal)
CPT/HCPCS: 85007; 85027; 96374; 96375; 99284; J1170; J1642; J2405; J7030

== ENCOUNTER 2016-11-11 09:45 | Emergency (ER) | payer MEDICARE, OTHER ==
[~2016-11-11] VITALS: Ht 165.1 cm; Wt 65.5 kg
[~2016-11-11 09:45] MED LIST changes: -HYDR-3533 PO; -LEVA750T9 PO
[2016-11-11 09:51] VITALS: BP 126/63; PULSE 99; RESP 16; TEMP 98.5; O2SAT 96
[2016-11-11] MEDS ORDERED: SODIUM CHLOR 0.9% 1000 ML INJ 1,000 ML IV ONE (10:02)
--- NOTE | 2016-11-11 10:11 | PD ---
HPI Chief Complaint: Sickle Cell Time Seen by Provider: 09:57 Travel History International Travel<30 days: No Contact w/Intl Traveler<30days: No Traveled to known affect area: No History of Present Illness HPI 35-year-old female complains of sickle cell crisis pain. Patient states that she started having pain all over the body 2 days ago. 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 Patient denies any headache. Patient denies any coughing congestion fever chills. Patient denies any nausea vomiting diarrhea. Patient's on her menstruation period now. Patient has history of avascular necrosis, chronic pain, chronic renal insufficiency, iron overload, multiple VTE in 2013. PFSH Past Medical History Hx Anticoagulant Therapy: Yes (asa 81mg) Anemia: Yes (SICKLE CELL) Arthritis: No Asthma: No Autoimmune Disease: No Blood Disorders: Yes (SICKLE CELL) Anxiety: No Depression: No Heart Rhythm Problems: No Cancer: No Cardiovascular Problems: Yes (htn on meds) High Cholesterol: No Chemotherapy: No Chest Pain: No Congestive Heart Failure: No COPD: No Cerebrovascular Accident: No Diabetes: No Diminished Hearing: No Deep Vein Thrombosis: Yes (HX LEFT ARM ) Endocrine: No Gastrointestinal Disorders: No GERD: No Glaucoma: No Genitourinary: No Headaches: Yes Hepatitis: No Hiatal Hernia: No Heparin Induced Thrombocytopen: No Hypertension: Yes Immune Disorder: Yes (SICKLE CELL) Implanted Vascular Access Dvce: Yes (POWER INFUSAPORT) Kidney Stones: No Musculoskeletal: Yes (SCOLIOSIS) Neurologic: No Psychiatric: No Reproductive: No Respiratory: No Immunizations Current: Yes Migraines: Yes Pneumonia: Yes (CURRENTLY BEING TREATED ) Radiation Therapy: No Renal Failure: No Seizures: No Sickle Cell Disease: Yes Sleep Apnea: No Thyroid Disease: No Ulcer: No PNEUMOCCOCAL Vaccine (Year): 2008 ?: Not LMP: NOW Menopausal: No : 5 Para: 2 Miscarriage: 3 : 0 Ovarian Cysts: Yes Past Surgical History Abdominal Surgery: Yes (CHOLECYSTECTOMY) AICD: No Arteriovenous Shunt: No Body Medical Devices: CATIA IN UPPER BACK Cardiac Surgery: No Cholecystectomy: Yes Ear Surgery: No Endocrine Surgery: No Eye Surgery: No Genitourinary Surgery: No Gynecologic Surgery: No Hysterectomy: No Insulin Pump: No Joint Replacement: Yes (R HIP REPLACEMENT 2011, L HIP 2014) Neurologic Surgery: No Oral Surgery: No Pacemaker: No Thoracic Surgery: No Other Surgery: Yes (INSERTION OF INFUSA PORTX 3) Social History Alcohol Use: Yes (occass. wine) Tobacco Use: No Substance Use: No Allergies-Medications (Allergen,Severity, Reaction): Coded Allergies: ketorolac (Unverified Allergy, Severe, Itching, 11/11/16) morphine (Unverified Allergy, Mild, Swelling, 11/11/16) ibuprofen (Unverified Adverse Reaction, Severe, Urinary Freq (Inc/Dec), ) RENAL FAILURE methadone (Unverified Adverse Reaction, Severe, DEPRESSION, 11/11/16) *MDRO Multi-Drug Resistant Organism (Verified Adverse Reaction, Unknown, ) VRE urine 2013 VRE screens NEGATIVE - 11/12/14 and 12/18/14 CLEARED PER INFECTION CONTROL Reported Meds & Prescriptions Reported Meds & Active Scripts Active Reported Dilaudid (Hydromorphone HCl) 4 Mg Tab 4 Mg PO Q6H PRN Hydrea (Hydroxyurea) 500 Mg Cap 500 Mg PO TID Folic Acid 400 Mcg Tab 1 Mg PO DAILY Aspirin 81 Mg Chew 81 Mg CHEW DAILY Jadenu (Deferasirox) 90 Mg Tab DAILY Amlodipine (Amlodipine Besylate) 5 Mg Tab 5 Mg PO DAILY Review of Systems General / Constitutional: No: Fever Eyes: No: Visual changes HENT: No: Headaches Cardiovascular: No: Chest Pain or Discomfort Respiratory: No: Shortness of Breath Gastrointestinal: No: Abdominal Pain Genitourinary: No: Dysuria Musculoskeletal: Positive: Pain Skin: No Rash Neurologic: No: Weakness Psychiatric: No: Depression Endocrine: No: Polydipsia Hematologic/Lymphatic: No: Easy Bruising Physical Exam Narrative GENERAL: Well-nourished, well-developed patient. SKIN: Focused skin assessment warm/dry. HEAD: Normocephalic. EYES: No scleral icterus. No injection or drainage. NECK: Supple, trachea midline. No JVD or lymphadenopathy. CARDIOVASCULAR: Regular rate and rhythm without murmurs, gallops, or rubs. RESPIRATORY: Breath sounds equal bilaterally. No accessory muscle use. GASTROINTESTINAL: Abdomen soft, non-tender, nondistended. MUSCULOSKELETAL: No cyanosis, or edema. Diffuse tenderness over the joints. No deformity noted. Patient moves all extremity well. BACK: Nontender without obvious deformity. No CVA tenderness. Neurologic exam normal. Data Data Last Documented VS Vital Signs Date Time Temp Pulse Resp B/P Pulse Ox O2 Delivery O2 Flow Rate FiO2 11/11/16 10:30 92 Room Air 11/11/16 09:51 98.5 99 16 126/63 Orders Basic Metabolic Panel (Bmp) (11/11/16 10:02) Complete Blood Count With Diff (11/11/16 10:02) Retic Count (11/11/16 10:02) Ecg Monitoring (11/11/16 10:02) Iv Access Insert/Monitor (11/11/16 10:02) Oximetry (11/11/16 10:02) Ondansetron Inj (Zofran Inj) (11/11/16 10:15) Sodium Chloride 0.9% Flush (Ns Flush) (11/11/16 10:15) Sodium Chlor 0.9% 1000 Ml Inj (Ns 1000 M (11/11/16 10:02) Hydromorphone Pf Inj (Dilaudid Pf Inj) (11/11/16 10:15) Diphenhydramine Inj (Benadryl Inj) (11/11/16 10:15) Heparin Central Flush (Heparin Central F (11/11/16 10:15) Labs Laboratory Tests Test 11/11/16 10:32 White Blood Count 14.4 TH/MM3 Red Blood Count 2.55 MIL/MM3 Hemoglobin 7.9 GM/DL Hematocrit 23.0 % Mean Corpuscular Volume 90.4 FL Mean Corpuscular Hemoglobin 31.0 PG Mean Corpuscular Hemoglobin 34.3 % Concent Red Cell Distribution Width 23.2 % Platelet Count 293 TH/MM3 Mean Platelet Volume 8.5 FL Neutrophils (%) (Auto) % Lymphocytes (%) (Auto) % Monocytes (%) (Auto) % Eosinophils (%) (Auto) % Basophils (%) (Auto) % Neutrophils # (Auto) TH/MM3 Lymphocytes # (Auto) TH/MM3 Monocytes # (Auto) TH/MM3 Eosinophils # (Auto) TH/MM3 Basophils # (Auto) TH/MM3 CBC Comment AUTO DIFF Sodium Level 138 MEQ/L Potassium Level 4.3 MEQ/L Chloride Level 107 MEQ/L Carbon Dioxide Level 24.9 MEQ/L Anion Gap 6 MEQ/L Blood Urea Nitrogen 14 MG/DL Creatinine 1.00 MG/DL Estimat Glomerular Filtration 77 ML/MIN Rate Random Glucose 89 MG/DL Calcium Level 8.9 MG/DL [facility] Medical Decision Making Medical Screen Exam Complete: Yes Emergency Medical Condition: Yes Interpretation(s) 11:18 AM. CBC WBC 14.4. Hemoglobin 7.9. Patient's baseline is 7.8-8.3. BMP within normal limit. Differential Diagnosis Differential diagnosis including vaso-occlusive crisis, acute on chronic pain. Narrative Course 35-year-old female with history of sickle cell disease with vaso-occlusive pain crisis. Normal saline solution 1 L IV bolus. Dilaudid 1 mg IV. Zofran 4 mg IV. Benadryl 25 mg IV. Diagnosis Primary Impression: Sickle cell pain crisis Patient Instructions: General Instructions Additional Instructions: Continue with all medications. Follow-up with personal physician. Return as needed. Med/Other Pt SpecificInfo: No Change to Meds Disposition: 01 DISCHARGE HOME Condition: Stable Brayan Morton MD Nov 11, 2016 10:11
[2016-11-11] MEDS ORDERED: ONDANSETRON HCL 4 MG/2 ML VIAL IVP ONE (10:15)
[2016-11-11] MEDS ORDERED: diphenhydrAMINE HCL 50 MG/ML VIAL IV ONE (10:15)
[2016-11-11] MEDS ORDERED: SODIUM CHLORIDE 0.9% FLUSH 10 ML FLUSH IVF PRN (10:15)
[2016-11-11] MEDS ORDERED: HYDROmorphone HCL PF 1 MG/ML VIAL IVS ONE (10:15)
[2016-11-11 10:30] VITALS: O2SAT 92
[2016-11-11 10:37] LABS: MEAN CELL VOLUME 90.4 FL (80.0-100.0); MEAN CORPUSCULAR HGB CONC 34.3 % (32.0-36.0); PLATELET COUNT 293 TH/MM3 (150-450); RED BLOOD COUNT 2.55 MIL/MM3 (4.00-5.30); RED CELL DISTRIBUTION WIDTH 23.2 % (11.6-17.2); WHITE BLOOD COUNT 14.4 TH/MM3 (4.0-11.0)
[2016-11-11 10:40] LABS: HEMO FLAGS AUTO DIFF
[2016-11-11 10:45] LABS: POTASSIUM 4.3 MEQ/L (3.5-5.1)
[2016-11-11 10:48] LABS: BICARBONATE 24.9 MEQ/L (21.0-32.0)
[2016-11-11 11:01] LABS: CORRECTED NUCLEATED RBC 2 /100 WBC (0-0); EOSINOPHILS 9 % (0-4); NEUTROPHIL # MANUAL DIFF 9.1 TH/MM3 (1.8-7.7); POLYS (SEG NEUTROPHILS) 63 % (16-70); TARGET CELLS 2+ (NORMAL); WBC DIFF SAMPLE 100
[2016-11-11 11:02] LABS: ACANTHOCYTES 1+ (NORMAL); KERATOCYTES OCC (NORMAL); OVALOCYTES 1+ (NORMAL); SICKLE CELLS 3+ (NORMAL)
[2016-11-11 11:03] LABS: PLATELET ESTIMATE SMEAR NORMAL (NORMAL); PLATELET MORPHOLOGY NORMAL (NORMAL); SCAN/DIFF FINAL DIFF MANUAL
[2016-11-11 11:23] LABS: HOWELL-JOLLY BODIES PRESENT (NONE SEEN); POLYCHROMASIA 4.6 % (0.0-1.9)
[2016-11-11 12:07] LABS: REVIEW FLAG FINAL
== END 2016-11-11 12:23 | disposition home or self-care (01) ==
LOC: PHED 09:45
DX: D57.00 Hb-SS disease with crisis, unspecified (principal); I10 Essential (primary) hypertension; Z79.82 Long term (current) use of aspirin; Z86.2 Personal history of diseases of the blood and blood-forming organs and certain disorders involving the immune mechanism; Z86.79 Personal history of other diseases of the circulatory system; Z86.718 Personal history of other venous thrombosis and embolism; Z87.39 Personal history of other diseases of the musculoskeletal system and connective tissue; Z86.69 Personal history of other diseases of the nervous system and sense organs
CPT/HCPCS: 80048; 85007; 85027; 85044; 96361; 96374; 96375; 99284; J1170; J1200; J1642; J2405; J7030

== ENCOUNTER 2016-11-13 03:05 | Inpatient (IN) | payer MEDICARE, OTHER ==
[~2016-11-13] VITALS: Ht 165.1 cm; Wt 71.3 kg
[2016-11-13] VITALS (11 sets, daily range): BP systolic 115–147; BP diastolic 78–96; PULSE 87–101; RESP 16–22; TEMP 96.8–98; O2SAT 88–100
[2016-11-13] MEDS ORDERED: SODIUM CHLOR 0.9% 1000 ML INJ 1,000 ML IV ONE (03:23)
[2016-11-13 03:26] LABS: MEAN CORPUSCULAR HGB CONC 36.9 % (32.0-36.0)
[2016-11-13] MEDS ORDERED: ONDANSETRON HCL 4 MG/2 ML VIAL IVP ONE (03:30)
[2016-11-13] MEDS ORDERED: HYDROmorphone HCL PF 1 MG/ML VIAL IVS ONE (03:30)
[2016-11-13] MEDS ORDERED: diphenhydrAMINE HCL 50 MG/ML VIAL IV ONE (03:30)
[2016-11-13] MEDS ORDERED: SODIUM CHLORIDE 0.9% FLUSH 10 ML FLUSH IVF PRN ×2 (03:30)
--- NOTE | 2016-11-13 03:36 | PD ---
HPI . Sickle cell crisis Chief Complaint: Sickle Cell Time Seen by Provider: 03:18 Travel History International Travel<30 days: No Contact w/Intl Traveler<30days: No Traveled to known affect area: No History of Present Illness HPI Patient presents with a chief complaint of a sickle cell crisis. Onset was 2 hours ago. I asked her if she had taken anything for the pain and she states that she took Dilaudid 5 hours ago. She states that she has a prescription for Dilaudid, 4 mg every 6 hours as needed for pain. She states that her pain crises are brought on by menstruation. Her current menstrual cycle started approximately 4 days ago. The patient was seen here within the last 48 hours for SCC. The patient denies any associated symptoms. She rates her pain currently as 10/10. PFSH Past Medical History Hx Anticoagulant Therapy: Yes (asa 81mg) Anemia: Yes (SICKLE CELL) Arthritis: No Asthma: No Autoimmune Disease: No Blood Disorders: Yes (SICKLE CELL) Anxiety: No Depression: No Heart Rhythm Problems: No Cancer: No Cardiovascular Problems: Yes (htn on meds) High Cholesterol: No Chemotherapy: No Chest Pain: No Congestive Heart Failure: No COPD: No Cerebrovascular Accident: No Diabetes: No Diminished Hearing: No Deep Vein Thrombosis: Yes (HX LEFT ARM ) Endocrine: No Gastrointestinal Disorders: No GERD: No Glaucoma: No Genitourinary: No Headaches: Yes Hepatitis: No Hiatal Hernia: No Heparin Induced Thrombocytopen: No Hypertension: Yes Immune Disorder: Yes (SICKLE CELL) Implanted Vascular Access Dvce: Yes (POWER INFUSAPORT) Kidney Stones: No Musculoskeletal: Yes (SCOLIOSIS) Neurologic: No Psychiatric: No Reproductive: No Respiratory: No Immunizations Current: Yes Migraines: Yes Pneumonia: Yes (CURRENTLY BEING TREATED ) Radiation Therapy: No Renal Failure: No Seizures: No Sickle Cell Disease: Yes Sleep Apnea: No Thyroid Disease: No Ulcer: No PNEUMOCCOCAL Vaccine (Year): 2008 ?: Not LMP: 11/08/16 Menopausal: No : 5 Para: 2 Miscarriage: 3 : 0 Ovarian Cysts: Yes Past Surgical History Abdominal Surgery: Yes (CHOLECYSTECTOMY) AICD: No Arteriovenous Shunt: No Body Medical Devices: CATIA IN UPPER BACK Cardiac Surgery: No Cholecystectomy: Yes Ear Surgery: No Endocrine Surgery: No Eye Surgery: No Genitourinary Surgery: No Gynecologic Surgery: No Hysterectomy: No Insulin Pump: No Joint Replacement: Yes (R HIP REPLACEMENT 2011, L HIP 2014) Neurologic Surgery: No Oral Surgery: No Pacemaker: No Thoracic Surgery: No Other Surgery: Yes (INSERTION OF INFUSA PORTX 3) Social History Alcohol Use: Yes (occass. wine) Tobacco Use: No Substance Use: No Allergies-Medications (Allergen,Severity, Reaction): Coded Allergies: ketorolac (Unverified Allergy, Severe, Itching, 11/11/16) morphine (Unverified Allergy, Mild, Swelling, 11/11/16) ibuprofen (Unverified Adverse Reaction, Severe, Urinary Freq (Inc/Dec), ) RENAL FAILURE methadone (Unverified Adverse Reaction, Severe, DEPRESSION, 11/11/16) *MDRO Multi-Drug Resistant Organism (Verified Adverse Reaction, Unknown, ) VRE urine 2013 VRE screens NEGATIVE - 11/12/14 and 12/18/14 CLEARED PER INFECTION CONTROL Reported Meds & Prescriptions Reported Meds & Active Scripts Active Reported Dilaudid (Hydromorphone HCl) 4 Mg Tab 4 Mg PO Q6H PRN Hydrea (Hydroxyurea) 500 Mg Cap 500 Mg PO TID Folic Acid 400 Mcg Tab 1 Mg PO DAILY Aspirin 81 Mg Chew 81 Mg CHEW DAILY Jadenu (Deferasirox) 90 Mg Tab DAILY Amlodipine (Amlodipine Besylate) 5 Mg Tab 5 Mg PO DAILY Review of Systems Except as stated in HPI: all other systems reviewed are Neg General / Constitutional: No: Fever, Chills Cardiovascular: No: Chest Pain or Discomfort Respiratory: No: Cough, Shortness of Breath Gastrointestinal: No: Nausea, Vomiting Genitourinary: No: Urgency, Frequency, Dysuria Musculoskeletal: Positive: Pain (pain all over) Physical Exam Narrative GENERAL: The patient is writhing. SKIN: Warm and dry. HEAD: Atraumatic. Normocephalic. EYES: Pupils equal and round. No scleral icterus. ENT: No nasal bleeding or discharge. Mucous membranes pink and moist. NECK: Trachea midline. Neck supple. CARDIOVASCULAR: Regular rate and rhythm. RESPIRATORY: No accessory muscle use. GASTROINTESTINAL: Abdomen soft, non-tender, nondistended. MUSCULOSKELETAL: No obvious deformities. No edema. NEUROLOGICAL: Awake and alert. No obvious cranial nerve deficits. Motor grossly within normal limits. Normal speech. PSYCHIATRIC: Appropriate mood and affect; insight and judgment normal. Data Data Last Documented VS Vital Signs Date Time Temp Pulse Resp B/P Pulse Ox O2 Delivery O2 Flow Rate FiO2 11/13/16 04:20 14 11/13/16 04:15 95 Nasal Cannula 2 11/13/16 03:25 102 11/13/16 03:11 98.0 147/96 Orders Complete Blood Count With Diff (11/13/16 03:23) Comprehensive Metabolic Panel (11/13/16 03:23) Retic Count (11/13/16 03:23) Iv Access Insert/Monitor (11/13/16 03:23) Oxygen Administration (11/13/16 03:23) Ondansetron Inj (Zofran Inj) (11/13/16 03:30) Sodium Chloride 0.9% Flush (Ns Flush) (11/13/16 03:30) Sodium Chlor 0.9% 1000 Ml Inj (Ns 1000 M (11/13/16 03:23) Hydromorphone Pf Inj (Dilaudid Pf Inj) (11/13/16 03:30) Diphenhydramine Inj (Benadryl Inj) (11/13/16 03:30) Heparin Central Flush (Heparin Central F (11/13/16 03:30) Sodium Chloride 0.9% Flush (Ns Flush) (11/13/16 03:30) Heparin Central Flush (Heparin Central F (11/13/16 03:30) Hydromorphone Pf Inj (Dilaudid Pf Inj) (11/13/16 04:15) Admit Order (Ed Use Only) (11/13/16 04:23) Labs Laboratory Tests Test 11/13/16 03:35 White Blood Count 15.6 TH/MM3 Red Blood Count 2.42 MIL/MM3 Hemoglobin 7.9 GM/DL Hematocrit 21.5 % Mean Corpuscular Volume 88.9 FL Mean Corpuscular Hemoglobin 32.8 PG Mean Corpuscular Hemoglobin 36.9 % Concent Red Cell Distribution Width 23.1 % Platelet Count 332 TH/MM3 Mean Platelet Volume 8.7 FL Neutrophils (%) (Auto) % Lymphocytes (%) (Auto) % Monocytes (%) (Auto) % Eosinophils (%) (Auto) % Basophils (%) (Auto) % Neutrophils # (Auto) TH/MM3 Lymphocytes # (Auto) TH/MM3 Monocytes # (Auto) TH/MM3 Eosinophils # (Auto) TH/MM3 Basophils # (Auto) TH/MM3 CBC Comment AUTO DIFF Differential Total Cells 100 Counted Neutrophils % (Manual) 75 % Lymphocytes % 14 % Monocytes % 1 % Eosinophils % 10 % Neutrophils # (Manual) 11.7 TH/MM3 Nucleated Red Blood Cells 4 /100 WBC Differential Comment FINAL DIFF MANUAL Platelet Estimate NORMAL Platelet Morphology Comment NORMAL Sickle Cells 2+ Target Cells 1+ Ovalocytes 2+ Caraballo-[place] Bodies PRESENT Sodium Level 138 MEQ/L Potassium Level 3.9 MEQ/L Chloride Level 107 MEQ/L Carbon Dioxide Level 24.1 MEQ/L Anion Gap 7 MEQ/L Blood Urea Nitrogen 14 MG/DL Creatinine 1.20 MG/DL Estimat Glomerular Filtration 62 ML/MIN Rate Random Glucose 94 MG/DL Calcium Level 8.4 MG/DL Total Bilirubin 1.8 MG/DL Aspartate Amino Transf 82 U/L (AST/SGOT) Alanine Aminotransferase 39 U/L (ALT/SGPT) Alkaline Phosphatase 130 U/L Total Protein 7.7 GM/DL Albumin 3.5 GM/DL [facility] Medical Decision Making Medical Screen Exam Complete: Yes Emergency Medical Condition: Yes Medical Record Reviewed: Yes (the patient was seen here on 11/11 for sickle cell crisis. She was treated with IV fluids and Dilaudid. Her medical history is significant for sickle cell disease, hypertension, chronic kidney disease and a previous DVT. Her baseline hemoglobin is about 8 and her baseline creatinine is about 1.0.) Differential Diagnosis My differential diagnosis of sickle cell disease includes but is not limited to vaso-occlusive crisis, acute chest syndrome, occult infection, electrolyte disturbance, drug-seeking behavior. Narrative Course This patient presents with the chief complaint of sickle cell crisis. She reports drug allergies to morphine, methadone, Toradol and ibuprofen. Her port will be accessed and she will be given IV fluids and IV Dilaudid and Benadryl. She will be placed on oxygen. Following IV Dilaudid, the patient reports her pain decreased from 10-7. She states that she would like to be admitted at least to observation for continued IV pain medication. Physician Communication Physician Communication Dr. Moss will admit for pain management. Diagnosis Primary Impression: Sickle cell anemia with crisis Admitting Information Admitting Physician Requests: Admit Condition: Stable Jennifer Sandoval MD Nov 13, 2016 03:36
[2016-11-13 03:45] LABS: HEMATOCRIT 21.5 % (35.0-46.0); MEAN CELL VOLUME 88.9 FL (80.0-100.0); MEAN CORPUSCULAR HEMOGLOBIN 32.8 PG (27.0-34.0); PLATELET COUNT 332 TH/MM3 (150-450); RED BLOOD COUNT 2.42 MIL/MM3 (4.00-5.30); RED CELL DISTRIBUTION WIDTH 23.1 % (11.6-17.2); WHITE BLOOD COUNT 15.6 TH/MM3 (4.0-11.0)
[2016-11-13 03:46] LABS: HEMO FLAGS AUTO DIFF
[2016-11-13 03:53] LABS: CHLORIDE 107 MEQ/L (98-107); POTASSIUM 3.9 MEQ/L (3.5-5.1); SODIUM (NA) 138 MEQ/L (136-145)
[2016-11-13 03:56] LABS: ANION GAP 7 MEQ/L (5-15); BICARBONATE 24.1 MEQ/L (21.0-32.0); CORRECTED NUCLEATED RBC 4 /100 WBC (0-0); EOSINOPHILS 10 % (0-4); NEUTROPHIL # MANUAL DIFF 11.7 TH/MM3 (1.8-7.7); POLYS (SEG NEUTROPHILS) 75 % (16-70); WBC DIFF SAMPLE 100
[2016-11-13 03:57] LABS: BLOOD UREA NITROGEN 14 MG/DL (7-18); HOWELL-JOLLY BODIES PRESENT (NONE SEEN); OVALOCYTES 2+ (NORMAL); PLATELET ESTIMATE SMEAR NORMAL (NORMAL); PLATELET MORPHOLOGY NORMAL (NORMAL); SCAN/DIFF FINAL DIFF MANUAL; SICKLE CELLS 2+ (NORMAL); TARGET CELLS 1+ (NORMAL)
[2016-11-13 03:59] LABS: ALT (GPT) 39 U/L (10-53)
[2016-11-13 04:00] LABS: AST (GOT) 82 U/L (15-37); GLOMERULAR FILTRATION RATE 62 ML/MIN (>89)
[2016-11-13 04:01] LABS: TOTAL BILIRUBIN ADULT 1.8 MG/DL (0.2-1.0)
[2016-11-13 04:02] LABS: ALKALINE PHOSPHATASE 130 U/L (45-117)
[2016-11-13] MEDS ORDERED: HYDROmorphone HCL PF 1 MG/ML VIAL IV PUSH ONE (04:15)
[2016-11-13] MEDS ORDERED: HYDROmorphone HCL PF 1 MG/ML VIAL IV PUSH PRN (04:30)
[2016-11-13] MEDS ORDERED: BISACODYL 10 MG SUPP RECTAL PRN (04:30)
[2016-11-13] MEDS ORDERED: LACTULOSE SYRUP 20 GM/30 ML CUP PO PRN (04:30)
[2016-11-13] MEDS ORDERED: ACETAMINOPHEN 325 MG TAB PO PRN (04:30)
[2016-11-13] MEDS ORDERED: SENNOSIDES 8.6 MG TAB PO PRN (04:30)
[2016-11-13] MEDS ORDERED: SODIUM CHLORIDE 0.9% FLUSH 10 ML FLUSH IV FLUSH PRN (04:30)
[2016-11-13] MEDS ORDERED: MAGNESIUM HYDROXIDE SUSP 30 ML CUP PO PRN (04:30)
[2016-11-13 04:33] LABS: RETIC % 13.1 % (0.4-3.0)
[2016-11-13 04:35] LABS: REVIEW FLAG FINAL
[2016-11-13] MEDS: SODIUM CHLOR 0.9% 1000 ML INJ 1,000 ML IV SCH ×3 (04:50→17:47)
[2016-11-13] MEDS: HYDROmorphone HCL PF 2 MG/ML VIAL IV PUSH PRN ×7 (07:52→23:01)
[2016-11-13] MEDS: SODIUM CHLORIDE 0.9% FLUSH 10 ML FLUSH IV FLUSH SCH ×2 (09:00→19:48)
--- NOTE | 2016-11-13 09:35 | HHI.HP ---
[facility] Service [place] [facility] Primary Care Physician Lilo Shea MD Admission Diagnosis SCC Diagnoses: (1) Sickle cell anemia with pain Diagnosis: Principal Chief Complaint: Back pain Travel History International Travel<30 Days: No Contact w/Intl Traveler <30 Da: No Traveled to Known Affected Are: No History of Present Illness Written by Sathya Conklin, acting as scribe for Dr. Guzmán on 11/13/16 at 09: 24. 36 year-old female with known history of sickle cell anemia with multiple and recurrent admissions to the hospital for crisis, transfusions who presented to hospital again with with low back pain due to menstruation. Patient states that every time she has her menses she gets severe back pain and associated with the sickle cell the pain is excruciating. 10/10 on pain scale. She does take 4 mg of Dilaudid every 6 hours at home, however the pain is only reduced on 8/10 on a pain scale. The pain was not controlled in outpatient setting so she came to emergency department a few days ago and was discharged home then, however she returned yesterday because the pain was a 10/10 on pain scale and she could not control with her outpatient medications. Patient was given IV Dilaudid with reduction of her pain to 5/10. Patient states that her periods are approximately every 3 months, she usually uses 4-5 pads daily. She does not indicate that she has excessive flow this time, only worsened lower back pain. Patient's hemoglobin is stable as compared to last visit. ER physician recommended patient be admitted for pain control. Review of Systems Musculoskeletal: COMPLAINS OF: Back pain Except as stated in HPI: all other systems reviewed are Neg Past Family Social History Past Medical History Sickle cell disease History of avascular necrosis chronic kidney disease due to blood transfusion iron overload History of DVT left arm scoliosis migraines because of medications. Past Surgical History Right total hip replacement 2011 Left hip replacement 2014 cholecystectomy 2002 back surgery at age 15 (joey placed) [id number] R chest Reported Medications Reported Meds & Active Scripts Active Reported Dilaudid (Hydromorphone HCl) 4 Mg Tab 4 Mg PO Q6H PRN Hydrea (Hydroxyurea) 500 Mg Cap 500 Mg PO TID Folic Acid 400 Mcg Tab 1 Mg PO DAILY Aspirin 81 Mg Chew 81 Mg CHEW DAILY Jadenu (Deferasirox) 90 Mg Tab DAILY Amlodipine (Amlodipine Besylate) 5 Mg Tab 5 Mg PO DAILY Allergies: Coded Allergies: ketorolac (Unverified Allergy, Severe, Itching, 11/13/16) morphine (Unverified Allergy, Mild, Swelling, 11/13/16) ibuprofen (Unverified Adverse Reaction, Severe, Urinary Freq (Inc/Dec), ) RENAL FAILURE methadone (Unverified Adverse Reaction, Severe, DEPRESSION, 11/13/16) Family History Reviewed is significant for mother having hypertension and sickle cell, father with diabetes hypertension and sickle cell Social History Patient denies any tobacco, alcohol or illicit drugs Physical Exam Vital Signs Vital Signs Date Time Temp Pulse Resp B/P Pulse Ox O2 Delivery O2 Flow Rate FiO2 11/13/16 07:02 88 16 100 Nasal Cannula 2 11/13/16 06:15 88 16 121/81 100 Nasal Cannula 2 11/13/16 05:15 92 16 119/78 97 Nasal Cannula 2 11/13/16 04:49 14 11/13/16 04:20 14 11/13/16 04:15 95 Nasal Cannula 2 11/13/16 04:15 94 16 127/83 96 Nasal Cannula 2 11/13/16 03:25 102 18 94 Room Air 11/13/16 03:15 98 18 138/84 94 Room Air 11/13/16 03:11 98.0 99 22 147/96 94 Room Air Physical Exam GENERAL: This is a well-nourished, well-developed patient, in no apparent distress. SKIN: No rashes, ecchymoses or lesions. Cool and dry. HEAD: Atraumatic. Normocephalic. No temporal or scalp tenderness. EYES: Pupils equal round and reactive. Extraocular motions intact. No scleral icterus. No injection or drainage. ENT: Nose without bleeding, purulent drainage or septal hematoma. Throat without erythema, tonsillar hypertrophy or exudate. Uvula midline. Airway patent. NECK: Trachea midline. No JVD or lymphadenopathy. Supple, nontender, no meningeal signs. CARDIOVASCULAR: Regular rate and rhythm without murmurs, gallops, or rubs. RESPIRATORY: Clear to auscultation. Breath sounds equal bilaterally. No wheezes , rales, or rhonchi. GASTROINTESTINAL: Abdomen soft, non-tender, nondistended. No hepato-splenomegaly , or palpable masses. No guarding. MUSCULOSKELETAL: Extremities without clubbing, cyanosis, or edema. No joint tenderness, effusion, or edema noted. No calf tenderness. Negative Homans sign bilaterally. NEUROLOGICAL: Awake and alert. Cranial nerves II through XII intact. Motor and sensory grossly within normal limits. Five out of 5 muscle strength in all muscle groups. Normal speech. Laboratory Laboratory Tests Test 11/13/16 03:35 White Blood Count 15.6 Red Blood Count 2.42 Hemoglobin 7.9 Hematocrit 21.5 Mean Corpuscular Volume 88.9 Mean Corpuscular Hemoglobin 32.8 Mean Corpuscular Hemoglobin 36.9 Concent Red Cell Distribution Width 23.1 Platelet Count 332 Mean Platelet Volume 8.7 Neutrophils (%) (Auto) Lymphocytes (%) (Auto) Monocytes (%) (Auto) Eosinophils (%) (Auto) Basophils (%) (Auto) Neutrophils # (Auto) Lymphocytes # (Auto) Monocytes # (Auto) Eosinophils # (Auto) Basophils # (Auto) CBC Comment AUTO DIFF Differential Total Cells 100 Counted Neutrophils % (Manual) 75 Lymphocytes % 14 Monocytes % 1 Eosinophils % 10 Neutrophils # (Manual) 11.7 Nucleated Red Blood Cells 4 Differential Comment FINAL DIFF MANUAL Platelet Estimate NORMAL Platelet Morphology Comment NORMAL Sickle Cells 2+ Target Cells 1+ Ovalocytes 2+ Caraballo-[place] Bodies PRESENT Reticulocyte Count 13.1 Absolute Reticulocyte Count 295.6 Sodium Level 138 Potassium Level 3.9 Chloride Level 107 Carbon Dioxide Level 24.1 Anion Gap 7 Blood Urea Nitrogen 14 Creatinine 1.20 Estimat Glomerular Filtration 62 Rate Random Glucose 94 Calcium Level 8.4 Total Bilirubin 1.8 Aspartate Amino Transf 82 (AST/SGOT) Alanine Aminotransferase 39 (ALT/SGPT) Alkaline Phosphatase 130 Total Protein 7.7 Albumin 3.5 Result Diagram: 11/14/1652911/14/16529 Assessment and Plan Assessment and Plan Intractable low back pain secondary to combination of sickle cell anemia/ menstruation Continue pain control with Dilaudid IV 2 mg every 2 hours as needed for pain, convert to patient's by mouth pain medication when pain more controlled Monitor hemoglobin and transfuse if hemoglobin below 7.0 Resume home medications for sickle cell anemia Chronic kidney disease stage II Mild worsening as compared to previous admissions Continue IV fluids Monitor renal function DVT prevention Sequential compression devices Discussed Condition With Patient Physician Certification 2 Midnight Certification Type: Admission for Inpatient Services Order for Inpatient Services The services are ordered in accordance with Medicare regulations or non- Medicare payer requirements, as applicable. In the case of services not specified as inpatient-only, they are appropriately provided as inpatient services in accordance with the 2-midnight benchmark. Estimated LOS (days): 3 3 days is the estimated time the patient will need to remain in the hospital, assuming treatment plan goals are met and no additional complications. Post-Hospital Plan: Home Medical Decision Making Impression and Plan This note was transcribed by geovanni Conklin. I, Dr. Binta Guzmán personally performed the history, physical exam, and medical decision making; and confirmed the accuracy of the information in the transcribed note. Authenticated by Dr. Binta Guzmán on 11/16/16 at 13:10. The exam, history, and the medical decision-making described in the above note were completed with the assistance of the mid-level provider. I reviewed and agree with the findings presented. I attest that I had a [id number] encounter with the patient on the same day, and personally performed and documented my assessment and findings in the medical record. Sathya Conklin Nov 13, 2016 09:35 Binta Guzmán MD Nov 13, 2016 15:08
[2016-11-13] MEDS: DOCUSATE SODIUM 50 MG/SENNA 8.6 MG TAB PO SCH ×2 (09:49→19:48)
[2016-11-13] MEDS: ASPIRIN 81 MG CHEW TAB CHEW SCH (09:49)
[2016-11-13] MEDS: HYDROXYUREA 500 MG CAP PO SCH ×3 (09:50→17:49)
[2016-11-13] MEDS: FOLIC ACID 1 MG TAB PO SCH (09:50)
[2016-11-13] MEDS: amLODIPine BESYLATE 5 MG TAB PO SCH (09:50)
[2016-11-13] MEDS: ONDANSETRON HCL 4 MG/2 ML VIAL IVP PRN ×2 (11:42→17:49)
[2016-11-13 15:27] LABS: BICARBONATE 26.9 MEQ/L (21.0-32.0)
--- NOTE | 2016-11-13 18:14 | MB ---
cc: MARIAH TA MD DATE OF CONSULTATION 11/13/16 DATE OF 1980 REASON FOR CONSULTATION Sickle cell anemia with pain crisis. HEMATOLOGIC DIAGNOSIS Hemoglobin sickle-cell disease. CURRENT TREATMENT The patient is on disease modifying therapy with hydroxyurea 1500 milligrams once daily. CHIEF COMPLAINT Ms. Flores reports having pain in her lower back and in her legs, started 2 days prior to admission. The pain was not responsive to oral medications and hydration. HISTORY OF PRESENT ILLNESS Ms. Flores is a very pleasant 36-year-old female with a diagnosis of hemoglobin sickle-cell disease complicated by frequent vasoocclusive pain crises. She reports her crises are frequently exacerbated by menstrual cycles and she is presently having a menstrual cycle. She feels the menstrual cycle is what exacerbated the pain. She tells me she tried to manage her pain with oral fluid intake and oral opioid analgesics; however, this was not sufficient so she came into the emergency department. She tells me in addition to symptoms of pain she has been having nausea and has vomited most of what she tries to drink. She denies having fevers but tells me she does feel chills but other than that denies acute complaints. She specifically denies dysuria, she denies difficulty breathing, she denies chest pain. She denies any neurological symptoms such as weakness or focal sensory or motor deficits. Since presenting to the hospital she has been receiving intravenous IV fluid hydration as well as intravenous opioid analgesics. She tells me her pain is controlled satisfactorily. Blood work performed at the time of admission indicated a hemoglobin of 7.9 gm/dl. PAST MEDICAL HISTORY 1. Hemoglobin sickle-cell disease. 2. Frequent vasoocclusive pain crises. 3. 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 4. History of avascular necrosis of the hips. 5. Chronic kidney disease. 6. Scoliosis. 7. Migraines. PAST SURGICAL HISTORY 1. Right total hip replacement 2011. 2. Left total hip replacement 2014. 3. Cholecystectomy 2002. 4. Back surgeries (multiple). 5. Infusion port in the right side of the chest. ALLERGIES ALLERGIES TO IBUPROFEN, KETOROLAC, METHADONE AND MORPHINE. FAMILY HISTORY Sickle cell trait, hypertension and diabetes. Denies oncologic diagnoses. SOCIAL HISTORY She lives at home with her fiance. She denies tobacco, alcohol abuse. She denies any illicit drugs. CURRENT INPATIENT MEDICATIONS 1. Normal saline 150 cc/hour. 2. Tylenol 650 milligrams p.o. q. 6 hours as needed for fever and pain. 3. Amlodipine 5 milligrams p.o. daily. 4. Aspirin 81 milligrams once a day. 5. Dulcolax 10 milligrams rectal suppository as needed for severe constipation. 6. Diphenhydramine 25 milligrams IV x1. 7. Senna Colace 1 tablet p.o. b.i.d. 8. Folic acid 1 milligram p.o. daily. 9. Dilaudid 2 milligrams IV q. 2 hours as needed for pain. 10. Hydroxyurea 500 milligrams p.o. t.i.d. 11. Lactulose 30 ml p.o. daily as needed for severe pain. 12. Mag-Ox 30 ml p.o. q. 12 hours. 13. Zofran 4 milligrams IV q. 6 hours. 14. Senokot 17.2 milligrams p.o. q. 12 hours as needed for constipation. REVIEW OF SYSTEMS 13-point review of systems is obtained. The following are the pertinent positives and negatives: CONSTITUTIONAL: The patient reports fatigue, she reports chills, denies fevers, reports generally poor appetite due to nausea. HEENT: Denies headaches, blurry vision, difficulty swallowing or soreness in the throat. RESPIRATORY: Reports shortness of breath with exertion, denies cough or hemoptysis. Denies pleuritic chest pain. CARDIOVASCULAR: Denies angina-like chest pain, PND, orthopnea, palpitations or lower extremity edema. GI: Reports nausea, reports vomiting, denies hematemesis, denies hematochezia or melena. Denies constipation. She denies abdominal distension. She does report jaundice. : No complaints. MUSCULOSKELETAL: She reports severe lower back pain and hip pain as well as leg pain related to sickle cell disease. PROCEDURES ANALYST: No focal, sensory, motor deficits. No other complaints reported. PHYSICAL EXAMINATION VITAL SIGNS: Temperature 97.1 degrees Fahrenheit, heart rate 98 beats minute, respiratory rate 18, blood pressure 139/89, O2 sats 92% on 2 liters nasal cannula. GENERAL APPEARANCE: Ms. Flores is a young female, she is sitting up in bed, she appears to be in no acute distress and has a pleasant disposition. HEENT: Head atraumatic, normocephalic, conjunctive are pale, sclerae are icteric, EOMI, PERRLA, oral exam no pharyngeal erythema. Pale mucous membranes. NECK: No palpable cervical or supraclavicular lymphadenopathy. RESPIRATORY EXAM: Good air movement bilaterally, no added breath sounds. CARDIOVASCULAR: Loud heart sounds S1-S2 with a gallop over the apex. ABDOMINAL EXAM: Protuberant, soft, nontender, nondistended. No palpable organ enlargement, specifically no hepatosplenomegaly. LOWER EXTREMITIES: No pretibial edema. No calf tenderness. PROCEDURES ANALYST: No focal, sensory, motor deficits. LABORATORY FINDINGS Blood work dated 11/13/2016: WBC count 15.6, hemoglobin 7.9 gm/dl, hematocrit 21.5%, MCV 89, platelet count 332, absolute neutrophil count is 11.7. Absolute reticulocyte count is 295. Chemistries: Sodium 140, potassium 4, chloride 109, bicarb 27, BUN 10, creatinine 0.86, random glucose 86, calcium 8. AST 82, ALT 39, alkaline phosphatase 130, albumin 3.5. ASSESSMENT Ms. Flores is a very pleasant 36-year-old female with a diagnosis of hemoglobin sickle-cell disease. She is on disease modifying therapy with hydroxyurea. Unfortunately, she is prone to recurrent vasoocclusive pain crises and requires frequent hospitalization as well as clinic visits for intravenous fluid hydration as well as intravenous opioid analgesics. She came in earlier today with complaints of severe lower back pain and hip pain, she feels the trigger for the pain crisis was her menstrual cycle which started a few days ago. RECOMMENDATIONS 1. Hemoglobin sickle-cell disease: Associated with an uncomplicated pain crisis. Continue supportive care with IV fluid hydration. Continue intravenous pain medications as needed. Oxygen supplementation as well. I will start her on an incentive spirometer. I would advise against red cell transfusions unless her hemoglobin and hematocrit decline significantly or unless she develops cardiopulmonary symptoms. Dr. Shea full return on 11/16/2016. She will see the patient in the hospital should the patient remain hospitalized until then. MD MELANI Diego/BENI /5:15 PM /5:43 PM
[2016-11-13 20:36] LABS: MEAN CELL VOLUME 90.5 FL (80.0-100.0); MEAN CORPUSCULAR HEMOGLOBIN 31.1 PG (27.0-34.0); MEAN CORPUSCULAR HGB CONC 34.4 % (32.0-36.0); PLATELET COUNT 274 TH/MM3 (150-450); RED BLOOD COUNT 2.25 MIL/MM3 (4.00-5.30); RED CELL DISTRIBUTION WIDTH 22.5 % (11.6-17.2); WHITE BLOOD COUNT 14.8 TH/MM3 (4.0-11.0)
[2016-11-13 20:39] LABS: HEMO FLAGS AUTO DIFF
[2016-11-13 20:44] LABS: HEMATOCRIT 20.3 % (35.0-46.0)
[2016-11-13 21:40] LABS: BANDS 2 % (0-6); CORRECTED NUCLEATED RBC 2 /100 WBC (0-0); EOSINOPHILS 7 % (0-4); METAMYELOCYTES 1 % (0-1); NEUTROPHIL # MANUAL DIFF 7.3 TH/MM3 (1.8-7.7); POLYS (SEG NEUTROPHILS) 46 % (16-70); WBC DIFF SAMPLE 100
[2016-11-13 21:41] LABS: OVALOCYTES 2+ (NORMAL); PLATELET ESTIMATE SMEAR NORMAL (NORMAL); PLATELET MORPHOLOGY ENLARGED (NORMAL); SCAN/DIFF FINAL DIFF MANUAL; SICKLE CELLS 2+ (NORMAL); TARGET CELLS 1+ (NORMAL); TEARDROP RBCS 1+ (NORMAL)
[2016-11-14] VITALS (7 sets, daily range): BP systolic 112–128; BP diastolic 61–82; PULSE 90–101; RESP 16–19; TEMP 97.1–97.9; O2SAT 92–100
[2016-11-14] MEDS: SODIUM CHLOR 0.9% 1000 ML INJ 1,000 ML IV SCH ×4 (01:04→20:22)
[2016-11-14] MEDS: HYDROmorphone HCL PF 2 MG/ML VIAL IV PUSH PRN ×7 (01:05→21:57)
[2016-11-14 07:05] LABS: HEMATOCRIT 21.6 % (35.0-46.0); MEAN CELL VOLUME 89.9 FL (80.0-100.0); MEAN CORPUSCULAR HEMOGLOBIN 31.2 PG (27.0-34.0); MEAN CORPUSCULAR HGB CONC 34.7 % (32.0-36.0); PLATELET COUNT 322 TH/MM3 (150-450); WHITE BLOOD COUNT 14.6 TH/MM3 (4.0-11.0)
[2016-11-14 07:06] LABS: HEMO FLAGS AUTO DIFF
[2016-11-14 07:22] LABS: CHLORIDE 108 MEQ/L (98-107); SODIUM (NA) 141 MEQ/L (136-145)
[2016-11-14 07:28] LABS: ANION GAP 7 MEQ/L (5-15); BICARBONATE 25.8 MEQ/L (21.0-32.0); BLOOD UREA NITROGEN 6 MG/DL (7-18)
[2016-11-14 07:29] LABS: BANDS 3 % (0-6); CORRECTED NUCLEATED RBC 5 /100 WBC (0-0); CORRECTED WBC 13.9 TH/MM3 (4.0-11.0); EOSINOPHILS 12 % (0-4); METAMYELOCYTES 2 % (0-1); NEUTROPHIL # MANUAL DIFF 7.4 TH/MM3 (1.8-7.7); POLYS (SEG NEUTROPHILS) 48 % (16-70); WBC DIFF SAMPLE 100
[2016-11-14 07:30] LABS: ALT (GPT) 32 U/L (10-53); AST (GOT) 53 U/L (15-37)
[2016-11-14 07:31] LABS: GLOMERULAR FILTRATION RATE 101 ML/MIN (>89); TARGET CELLS 2+ (NORMAL)
[2016-11-14 07:32] LABS: KERATOCYTES OCC (NORMAL); OVALOCYTES 2+ (NORMAL); SICKLE CELLS 2+ (NORMAL); TOTAL BILIRUBIN ADULT 1.4 MG/DL (0.2-1.0)
[2016-11-14 07:33] LABS: HOWELL-JOLLY BODIES PRESENT (NONE SEEN); PLATELET ESTIMATE SMEAR NORMAL (NORMAL); PLATELET MORPHOLOGY NORMAL (NORMAL); SCAN/DIFF FINAL DIFF MANUAL
[2016-11-14 07:35] LABS: ALKALINE PHOSPHATASE 115 U/L (45-117)
[2016-11-14] MEDS: ASPIRIN 81 MG CHEW TAB CHEW SCH (08:21)
[2016-11-14] MEDS: DOCUSATE SODIUM 50 MG/SENNA 8.6 MG TAB PO SCH ×2 (08:21→21:00)
[2016-11-14] MEDS: FOLIC ACID 1 MG TAB PO SCH (08:21)
[2016-11-14] MEDS: amLODIPine BESYLATE 5 MG TAB PO SCH (08:21)
[2016-11-14] MEDS: SODIUM CHLORIDE 0.9% FLUSH 10 ML FLUSH IV FLUSH SCH ×2 (08:25→21:53)
[2016-11-14] MEDS: HYDROXYUREA 500 MG CAP PO SCH ×3 (08:25→18:58)
--- NOTE | 2016-11-14 10:24 | HHI.PR ---
Subjective Remarks Patient seen and evaluated today in follow-up for excessive pain without sickle cell crisis. Pain better controlled. Care plan discussed with patient. Consultation from hematology appreciated. Treatment plan discussed with Ellen SCHRADER Objective Vitals Vital Signs Date Time Temp Pulse Resp B/P Pulse Ox O2 Delivery O2 Flow Rate FiO2 11/14/16 08:00 97.7 95 17 128/78 95 11/14/16 07:40 99 Nasal Cannula 2.00 11/14/16 04:45 11/14/16 01:32 97.1 100 16 115/61 95 11/13/16 21:26 Nasal Cannula 2.00 11/13/16 21:12 97.1 101 16 127/89 90 11/13/16 16:00 97.1 98 18 139/89 92 11/13/16 12:00 96.8 87 16 127/86 95 11/13/16 11:00 97 Nasal Cannula 2.00 I/O 11/13/16 11/13/16 11/13/16 11/14/16 11/14/16 11/14/16 07:00 15:00 23:00 07:00 15:00 23:00 Intake Total 1000 ml 1375 ml Balance 1000 ml 1375 ml Intake Oral 625 ml IV Total 1000 ml 750 ml # Voids 2 3 # Bowel Movements 0 Result Diagram: 11/14/16 0530 11/14/16 0530 Objective Remarks GENERAL: This is a well-nourished, well-developed patient, in no apparent distress. CARDIOVASCULAR: Regular rate and rhythm without murmurs, gallops, or rubs. RESPIRATORY: Clear to auscultation. Breath sounds equal bilaterally. No wheezes , rales, or rhonchi. GASTROINTESTINAL: Abdomen soft, non-tender, nondistended. Normal active bowel sounds MUSCULOSKELETAL: Extremities without clubbing, cyanosis, or edema. NEURO: Alert & Oriented x4 to person, place, time, situation. Moves all ext x4 A/P Problem List: (1) Sickle cell anemia with pain ICD Code: D57.00 Status: Acute Plan: No evidence of sickle cell crisis at this time. Patient did appear dehydrated which is improved. Continue with plans to ambulate and likely discharge in a.m. Discharge Planning Discharge in a.m. iBnta Guzmán MD Nov 14, 2016 10:24
--- NOTE | 2016-11-14 10:25 | HHI.DCPOC ---
Discharge Care Plan Diagnosis: (1) Sickle cell anemia with pain Goals to Promote Your Health * To prevent worsening of your condition and complications * To maintain your health at the optimal level Directions to Meet Your Goals Take your medications as prescribed Follow your dietary instruction Follow activity as directed Keep your appointments as scheduled Take your immunizations and boosters as scheduled If your symptoms worsen call your PCP, if no PCP go to Urgent Care Center or Emergency Room Smoking is Dangerous to Your Health. Avoid second hand smoke Call the 24-hour hour crisis hotline for domestic abuse at Binta Guzmán MD Nov 14, 2016 10:25
[2016-11-14] MEDS: ONDANSETRON HCL 4 MG/2 ML VIAL IVP PRN (11:42)
[2016-11-14] MEDS: diphenhydrAMINE HCL 50 MG/ML VIAL IV PUSH PRN (19:03)
[2016-11-15] MEDS: diphenhydrAMINE HCL 50 MG/ML VIAL IV PUSH PRN ×2 (00:04→05:29)
[2016-11-15] MEDS: HYDROmorphone HCL PF 2 MG/ML VIAL IV PUSH PRN ×3 (00:06→05:31)
[2016-11-15 00:43] VITALS: BP 112/74; PULSE 94; RESP 18; TEMP 97.1; O2SAT 99
[2016-11-15] MEDS: SODIUM CHLOR 0.9% 1000 ML INJ 1,000 ML IV SCH ×2 (03:02→07:58)
[2016-11-15] MEDS: ONDANSETRON HCL 4 MG/2 ML VIAL IVP PRN (03:13)
--- NOTE | 2016-11-15 07:32 | HHI.DS ---
Discharge Summary Admission Date Nov 13, 2016 at 04:24 Discharge Date: Nov 15, 2016 Admitting Diagnosis [facility] (1) Sickle cell anemia with pain ICD Code: D57.00 Procedures none Brief History - From Admission Written by Sathya Conklin, acting as scribe for Dr. Guzmán on 11/13/16 at 09: 24. 36 year-old female with known history of sickle cell anemia with multiple and recurrent admissions to the hospital for crisis, transfusions who presented to hospital again with with low back pain due to menstruation. Patient states that every time she has her menses she gets severe back pain and associated with the sickle cell the pain is excruciating. 10/10 on pain scale. She does take 4 mg of Dilaudid every 6 hours at home, however the pain is only reduced on 8/10 on a pain scale. The pain was not controlled in outpatient setting so she came to emergency department a few days ago and was discharged home then, however she returned yesterday because the pain was a 10/10 on pain scale and she could not control with her outpatient medications. Patient was given IV Dilaudid with reduction of her pain to 5/10. Patient states that her periods are approximately every 3 months, she usually uses 4-5 pads daily. She does not indicate that she has excessive flow this time, only worsened lower back pain. Patient's hemoglobin is stable as compared to last visit. ER physician recommended patient be admitted for pain control. CBC/BMP: 11/14/16 0530 11/14/16 0530 Significant Findings Laboratory Tests Test 11/13/16 11/13/16 11/13/16 11/14/16 03:35 14:40 15:20 05:30 White Blood Count 15.6 TH/MM3 14.8 TH/MM3 14.6 TH/MM3 (4.0-11.0) (4.0-11.0) (4.0-11.0) Red Blood Count 2.42 MIL/MM3 2.25 MIL/MM3 2.40 MIL/MM3 (4.00-5.30) (4.00-5.30) (4.00-5.30) Hemoglobin 7.9 GM/DL 7.0 GM/DL 7.5 GM/DL (11.6-15.3) (11.6-15.3) (11.6-15.3) Hematocrit 21.5 % 20.3 % 21.6 % (35.0-46.0) (35.0-46.0) (35.0-46.0) Mean Corpuscular Hemoglobin 36.9 % Concent (32.0-36.0) Red Cell Distribution Width 23.1 % 22.5 % 22.0 % (11.6-17.2) (11.6-17.2) (11.6-17.2) Neutrophils % (Manual) 75 % (16-70) Eosinophils % 10 % (0-4) 7 % (0-4) 12 % (0-4) Neutrophils # (Manual) 11.7 TH/MM3 (1.8-7.7) Nucleated Red Blood Cells 4 /100 WBC 2 /100 WBC 5 /100 WBC (0-0) (0-0) (0-0) Sickle Cells 2+ (NORMAL) 2+ (NORMAL) 2+ (NORMAL) Target Cells 1+ (NORMAL) 1+ (NORMAL) 2+ (NORMAL) Ovalocytes 2+ (NORMAL) 2+ (NORMAL) 2+ (NORMAL) Reticulocyte Count 13.1 % (0.4-3.0) Absolute Reticulocyte Count 295.6 MIL/L (20.0-150.0) Creatinine 1.20 MG/DL (0.50-1.00) Estimat Glomerular Filtration 62 ML/MIN (>89) Rate Calcium Level 8.4 MG/DL 8.0 MG/DL (8.5-10.1) (8.5-10.1) Total Bilirubin 1.8 MG/DL 1.4 MG/DL (0.2-1.0) (0.2-1.0) Aspartate Amino Transf 82 U/L (15-37) 53 U/L (15-37) (AST/SGOT) Alkaline Phosphatase 130 U/L (45-117) Chloride Level 109 MEQ/L 108 MEQ/L (98-107) (98-107) Anion Gap 4 MEQ/L (5-15) Platelet Morphology Comment ENLARGED (NORMAL) Tear Drop Cells 1+ (NORMAL) Corrected White Blood Count 13.9 TH/MM3 (4.0-11.0) Monocytes % 10 % (0-8) Metamyelocytes 2 % (0-1) Basophilic Stippling FAINT (NORMAL) Keratocytes OCC (NORMAL) Blood Urea Nitrogen 6 MG/DL (7-18) PE at Discharge GENERAL: This is a well-nourished, well-developed patient, in no apparent distress. CARDIOVASCULAR: Regular rate and rhythm without murmurs, gallops, or rubs. RESPIRATORY: Clear to auscultation. Breath sounds equal bilaterally. No wheezes , rales, or rhonchi. GASTROINTESTINAL: Abdomen soft, non-tender, nondistended. Normal active bowel sounds MUSCULOSKELETAL: Extremities without clubbing, cyanosis, or edema. NEURO: Alert & Oriented x4 to person, place, time, situation. Moves all ext x4 Hospital Course patient was treated for diffuse pain. She had uncomplicated pain crisis which was treated with IVF, education, and narcotics.. She was seen by hematology Pt Condition on Discharge: Good Discharge Disposition: Discharge Home Discharge Time: <= 30 minutes Discharge Instructions DIET: Follow Instructions for: As Tolerated, No Restrictions Activities you can perform: Regular-No Restrictions Follow up Referrals: PCP Follow-up - 2 Weeks Continued Medications: Amlodipine (Amlodipine) 5 Mg Tab 5 MG PO DAILY Blood Pressure Management #30 Ref 0 TAB Aspirin (Aspirin) 81 Mg Chew 81 MG CHEW DAILY Blood Clot Prevention Ref 0 TAB Deferasirox (Jadenu) 90 Mg Tab DAILY Folic Acid (Folic Acid) 400 Mcg Tab 1 MG PO DAILY Nutritional Supplement Ref 0 TAB Hydromorphone (Dilaudid) 4 Mg Tab 4 MG PO Q6H PRN Pain Management Ref 0 TAB Hydroxyurea (Hydrea) 500 Mg Cap 500 MG PO TID SICKLE CELL Ref 0 Binta Stewart MD Nov 15, 2016 07:32
[2016-11-15 07:45] VITALS: BP 116/77; PULSE 80; RESP 17; TEMP 98.6; O2SAT 92
[2016-11-15 07:50] VITALS: O2SAT 96
[2016-11-15] MEDS: amLODIPine BESYLATE 5 MG TAB PO SCH (07:57)
[2016-11-15] MEDS: ASPIRIN 81 MG CHEW TAB CHEW SCH (07:57)
[2016-11-15] MEDS: FOLIC ACID 1 MG TAB PO SCH (07:57)
[2016-11-15] MEDS: DOCUSATE SODIUM 50 MG/SENNA 8.6 MG TAB PO SCH (07:58)
[2016-11-15] MEDS: HYDROXYUREA 500 MG CAP PO SCH (09:00)
[2016-11-15] MEDS ORDERED: JADENU PO SCH (09:00)
== END 2016-11-15 08:45 | disposition home or self-care (01) | DRG 812 ==
LOC: PHED 03:05 → PHEDA 04:24 → PH3B 08:00
PROVIDERS: ADMIT Hospitalist; ATTEND Hospitalist
DX: D57.00 Hb-SS disease with crisis, unspecified (principal); M41.9 Scoliosis, unspecified; I12.9 Hypertensive chronic kidney disease with stage 1 through stage 4 chronic kidney disease, or unspecified chronic kidney disease; N18.2 Chronic kidney disease, stage 2 (mild); E86.0 Dehydration; Z86.718 Personal history of other venous thrombosis and embolism; Z96.643 Presence of artificial hip joint, bilateral; M54.5 Low back pain; E83.119 Hemochromatosis, unspecified; G43.909 Migraine, unspecified, not intractable, without status migrainosus
CPT/HCPCS: 80048; 80053; 85007; 85027; 85044; 94150; 96361; 96374; 96375; J1170; J1200; J1642; J2405; J7030

== ENCOUNTER 2016-12-19 11:06 | Emergency (ER) | payer MEDICARE, OTHER ==
[~2016-12-19] VITALS: Ht 165.1 cm; Wt 64.1 kg
[2016-12-19 11:16] VITALS: BP 134/85; PULSE 92; RESP 20; TEMP 98.9; O2SAT 98
--- NOTE | 2016-12-19 11:37 | PD ---
HPI Chief Complaint: Sickle Cell Time Seen by Provider: 11:37 Travel History International Travel<30 days: No Contact w/Intl Traveler<30days: No Traveled to known affect area: No History of Present Illness HPI Patient presents for acute sickle cell attack. Reports pain in her chest back and abdomen. Normally receives Dilaudid Zofran and Benadryl. Admits to poor fluid intake. Onset this morning. Denies nausea vomiting diarrhea or fever. Denies any shortness of breath. Denies any urinary or bowel symptoms. PFSH Past Medical History Hx Anticoagulant Therapy: Yes (ASA) Anemia: Yes (SICKLE CELL) Arthritis: No Asthma: No Autoimmune Disease: No Blood Disorders: Yes (SICKLE CELL) Anxiety: No Depression: No Heart Rhythm Problems: No Cancer: No Cardiovascular Problems: Yes (htn on meds) High Cholesterol: No Chemotherapy: No Chest Pain: No Congestive Heart Failure: No COPD: No Cerebrovascular Accident: No Diabetes: No Diminished Hearing: No Deep Vein Thrombosis: Yes (HX LEFT ARM ) Endocrine: No Gastrointestinal Disorders: No GERD: No Glaucoma: No Genitourinary: No Headaches: Yes Hepatitis: No Hiatal Hernia: No Heparin Induced Thrombocytopen: No Hypertension: Yes Immune Disorder: Yes (SICKLE CELL) Implanted Vascular Access Dvce: Yes (POWER INFUSAPORT) Kidney Stones: No Musculoskeletal: Yes (SCOLIOSIS) Neurologic: No Psychiatric: No Reproductive: No Respiratory: No Immunizations Current: Yes Migraines: Yes Pneumonia: Yes (CURRENTLY BEING TREATED ) Radiation Therapy: No Renal Failure: No Seizures: No Sickle Cell Disease: Yes Sleep Apnea: No Thyroid Disease: No Ulcer: No PNEUMOCCOCAL Vaccine (Year): 2008 ?: Not LMP: NOVEMBER 12 Menopausal: No : 5 Para: 2 Miscarriage: 3 : 0 Ovarian Cysts: Yes Past Surgical History Abdominal Surgery: Yes (CHOLECYSTECTOMY) AICD: No Appendectomy: Yes Arteriovenous Shunt: No Body Medical Devices: CATIA IN UPPER BACK Cardiac Surgery: No Cholecystectomy: Yes Ear Surgery: No Endocrine Surgery: No Eye Surgery: No Genitourinary Surgery: No Gynecologic Surgery: No Hysterectomy: No Insulin Pump: No Joint Replacement: Yes (R HIP REPLACEMENT 2011, L HIP 2014) Neurologic Surgery: No Oral Surgery: No Pacemaker: No Thoracic Surgery: No Other Surgery: Yes (INSERTION OF INFUSA PORTX 3) Social History Alcohol Use: Yes (occass. wine) Tobacco Use: No Substance Use: No Allergies-Medications (Allergen,Severity, Reaction): Coded Allergies: ketorolac (Unverified Allergy, Severe, Itching, 12/19/16) morphine (Unverified Allergy, Mild, Swelling, 12/19/16) ibuprofen (Unverified Adverse Reaction, Severe, Urinary Freq (Inc/Dec), ) RENAL FAILURE methadone (Unverified Adverse Reaction, Severe, DEPRESSION, 12/19/16) Reported Meds & Prescriptions Reported Meds & Active Scripts Active Reported Dilaudid (Hydromorphone HCl) 4 Mg Tab 4 Mg PO Q6H PRN Hydrea (Hydroxyurea) 500 Mg Cap 500 Mg PO TID Folic Acid 400 Mcg Tab 1 Mg PO DAILY Aspirin 81 Mg Chew 81 Mg CHEW DAILY Jadenu (Deferasirox) 90 Mg Tab DAILY Amlodipine (Amlodipine Besylate) 5 Mg Tab 5 Mg PO DAILY Review of Systems General / Constitutional: No: Fever Eyes: No: Visual changes HENT: No: Headaches Cardiovascular: No: Chest Pain or Discomfort Respiratory: No: Shortness of Breath Gastrointestinal: No: Abdominal Pain Genitourinary: No: Dysuria Musculoskeletal: No: Pain Skin: No Rash Neurologic: No: Weakness Psychiatric: No: Depression Endocrine: No: Polydipsia Hematologic/Lymphatic: No: Easy Bruising Physical Exam Narrative GENERAL: Well-nourished, well-developed patient. SKIN: Focused skin assessment warm/dry. HEAD: Normocephalic. EYES: No scleral icterus. No injection or drainage. NECK: Supple, trachea midline. No JVD or lymphadenopathy. CARDIOVASCULAR: Regular rate and rhythm without murmurs, gallops, or rubs. RESPIRATORY: Breath sounds equal bilaterally. No accessory muscle use. GASTROINTESTINAL: Abdomen soft, non-tender, nondistended. MUSCULOSKELETAL: No cyanosis, or edema. BACK: Nontender without obvious deformity. No CVA tenderness. Data Data Last Documented VS Vital Signs Date Time Temp Pulse Resp B/P (MAP) Pulse Ox O2 Delivery O2 Flow Rate FiO2 12/19/16 11:16 98.9 92 20 134/85 (101) 98 Orders Orders Sodium Chlor 0.9% 1000 Ml Inj (Ns 1000 M (12/19/16 11:45) Hydromorphone Pf Inj (Dilaudid Pf Inj) (12/19/16 11:45) Diphenhydramine Inj (Benadryl Inj) (12/19/16 11:45) Ondansetron Inj (Zofran Inj) (12/19/16 11:45) Complete Blood Count With Diff (12/19/16 11:46) Basic Metabolic Panel (Bmp) (12/19/16 11:46) Hydromorphone Pf Inj (Dilaudid Pf Inj) (12/19/16 12:30) Ondansetron Inj (Zofran Inj) (12/19/16 12:30) Labs Laboratory Tests Test 12/19/16 12:00 White Blood Count 11.5 TH/MM3 Red Blood Count 2.81 MIL/MM3 Hemoglobin 8.7 GM/DL Hematocrit 25.1 % Mean Corpuscular Volume 89.4 FL Mean Corpuscular Hemoglobin 31.1 PG Mean Corpuscular Hemoglobin Concent 34.8 % Red Cell Distribution Width 23.6 % Platelet Count 338 TH/MM3 Mean Platelet Volume 8.7 FL Neutrophils (%) (Auto) 61.4 % Lymphocytes (%) (Auto) 23.9 % Monocytes (%) (Auto) 7.3 % Eosinophils (%) (Auto) 6.0 % Basophils (%) (Auto) 1.4 % Neutrophils # (Auto) 7.1 TH/MM3 Lymphocytes # (Auto) 2.7 TH/MM3 Monocytes # (Auto) 0.8 TH/MM3 Eosinophils # (Auto) 0.7 TH/MM3 Basophils # (Auto) 0.2 TH/MM3 CBC Comment AUTO DIFF Differential Total Cells Counted 100 Neutrophils % (Manual) 54 % Band Neutrophils % 2 % Lymphocytes % 29 % Monocytes % 10 % Eosinophils % 4 % Basophils % 1 % Neutrophils # (Manual) 6.4 TH/MM3 Nucleated Red Blood Cells 1 /100 WBC Differential Comment FINAL DIFF MANUAL Platelet Estimate NORMAL Platelet Morphology Comment NORMAL Basophilic Stippling FAINT Sickle Cells 2+ Target Cells 1+ Ovalocytes 1+ [place] Bodies PRESENT Rouleau PRESENT Keratocytes OCC Blood Urea Nitrogen 14 MG/DL Creatinine 0.91 MG/DL Random Glucose 87 MG/DL Calcium Level 8.7 MG/DL Sodium Level 141 MEQ/L Potassium Level 3.9 MEQ/L Chloride Level 109 MEQ/L Carbon Dioxide Level 25.3 MEQ/L Anion Gap 7 MEQ/L Estimat Glomerular Filtration Rate 86 ML/MIN MDM Medical Decision Making Medical Screen Exam Complete: Yes Emergency Medical Condition: Yes Differential Diagnosis Sickle cell attack, reflux, musculoskeletal pain, dehydration Narrative Course assessment and plan discussed with patient and son at bedside. Pain improved after Dilaudid. CBC at baseline. Diagnosis Primary Impression: Acute chest syndrome Patient Instructions: Narcotic given in the ED, General Instructions, Sickle Cell Crisis (ED) Additional Instructions: Encouraged rest and fluids. Follow-up with PCP. Return to emergency room with any onset of new symptoms. Med/Other Pt SpecificInfo: No Meds Exist/No RX given Disposition: 01 DISCHARGE HOME Condition: Good Eagle Dougherty MD Dec 19, 2016 11:37
[2016-12-19] MEDS ORDERED: SODIUM CHLOR 0.9% 1000 ML INJ 1,000 ML IV ONE (11:45)
[2016-12-19] MEDS ORDERED: HYDROmorphone HCL PF 1 MG/ML VIAL IV PUSH ONE ×2 (11:45→12:30)
[2016-12-19] MEDS ORDERED: diphenhydrAMINE HCL 50 MG/ML VIAL IV PUSH ONE (11:45)
[2016-12-19] MEDS ORDERED: ONDANSETRON HCL 4 MG/2 ML VIAL IV PUSH ONE ×2 (11:45→12:30)
[2016-12-19 12:17] LABS: AUTOMATED NEUTROPHIL # 7.1 TH/MM3 (1.8-7.7); BASOPHIL # 0.2 TH/MM3 (0-0.2); BASOPHIL % 1.4 % (0.0-2.0); EOSINOPHIL # 0.7 TH/MM3 (0-0.4); HEMATOCRIT 25.1 % (35.0-46.0); LYMPH % 23.9 % (9.0-44.0); LYMPHOCYTE # 2.7 TH/MM3 (1.0-4.8); MEAN CELL VOLUME 89.4 FL (80.0-100.0); MEAN CORPUSCULAR HEMOGLOBIN 31.1 PG (27.0-34.0); MEAN CORPUSCULAR HGB CONC 34.8 % (32.0-36.0); MONO % 7.3 % (0.0-8.0); NEUT % 61.4 % (16.0-70.0); PLATELET COUNT 338 TH/MM3 (150-450); RED BLOOD COUNT 2.81 MIL/MM3 (4.00-5.30); RED CELL DISTRIBUTION WIDTH 23.6 % (11.6-17.2); WHITE BLOOD COUNT 11.5 TH/MM3 (4.0-11.0)
[2016-12-19 12:18] LABS: POTASSIUM 3.9 MEQ/L (3.5-5.1)
[2016-12-19 12:21] LABS: BICARBONATE 25.3 MEQ/L (21.0-32.0); HEMO FLAGS AUTO DIFF
[2016-12-19 12:36] LABS: BANDS 2 % (0-6); BASOPHILS 1 % (0-2); CORRECTED NUCLEATED RBC 1 /100 WBC (0-0); EOSINOPHILS 4 % (0-4); NEUTROPHIL # MANUAL DIFF 6.4 TH/MM3 (1.8-7.7); POLYS (SEG NEUTROPHILS) 54 % (16-70); WBC DIFF SAMPLE 100
[2016-12-19 12:37] LABS: KERATOCYTES OCC (NORMAL); OVALOCYTES 1+ (NORMAL); ROULEAUX PRESENT (NORMAL); SICKLE CELLS 2+ (NORMAL); TARGET CELLS 1+ (NORMAL)
[2016-12-19 12:38] LABS: HOWELL-JOLLY BODIES PRESENT (NONE SEEN); PLATELET ESTIMATE SMEAR NORMAL (NORMAL); PLATELET MORPHOLOGY NORMAL (NORMAL); SCAN/DIFF FINAL DIFF MANUAL
[2016-12-19 12:50] VITALS: BP 116/70; PULSE 73; RESP 16; O2SAT 97
[2016-12-19 13:25] VITALS: BP 126/80; PULSE 78; RESP 16; O2SAT 97
== END 2016-12-19 14:05 | disposition home or self-care (01) ==
LOC: PHED 11:06
DX: D57.01 Hb-SS disease with acute chest syndrome (principal)
CPT/HCPCS: 80048; 85007; 85027; 96361; 96374; 96375; 96376; 99284; J1170; J1200; J1642; J2405; J7030

== ENCOUNTER 2016-12-26 11:48 | Emergency (ER) | payer MEDICARE, OTHER ==
[~2016-12-26] VITALS: Ht 165.1 cm; Wt 64.0 kg
[2016-12-26 12:01] VITALS: BP 124/76; PULSE 99; RESP 18; TEMP 99.2; O2SAT 98
[2016-12-26 12:55] VITALS: BP 124/76; PULSE 84; RESP 18; TEMP 99.2; O2SAT 100
[2016-12-26 12:59] VITALS: O2SAT 100
[2016-12-26] MEDS ORDERED: SODIUM CHLOR 0.9% 1000 ML INJ 1,000 ML IV ONE (13:26)
[2016-12-26 13:27] LABS: AUTOMATED NEUTROPHIL # 3.9 TH/MM3 (1.8-7.7); BASOPHIL # 0.1 TH/MM3 (0-0.2); BASOPHIL % 1.7 % (0.0-2.0); EOSINOPHIL # 0.5 TH/MM3 (0-0.4); EOSINOPHIL % 6.1 % (0.0-4.0); HEMATOCRIT 25.3 % (35.0-46.0); LYMPH % 33.5 % (9.0-44.0); LYMPHOCYTE # 2.6 TH/MM3 (1.0-4.8); MEAN CELL VOLUME 90.6 FL (80.0-100.0); MEAN CORPUSCULAR HEMOGLOBIN 30.6 PG (27.0-34.0); MEAN CORPUSCULAR HGB CONC 33.7 % (32.0-36.0); MONO % 10.8 % (0.0-8.0); NEUT % 47.9 % (16.0-70.0); PLATELET COUNT 401 TH/MM3 (150-450); RED BLOOD COUNT 2.79 MIL/MM3 (4.00-5.30); RED CELL DISTRIBUTION WIDTH 26.3 % (11.6-17.2); WHITE BLOOD COUNT 7.9 TH/MM3 (4.0-11.0)
[2016-12-26 13:28] LABS: HEMO FLAGS AUTO DIFF
--- NOTE | 2016-12-26 13:29 | PD ---
HPI Chief Complaint: Sickle Cell Time Seen by Provider: 13:21 Travel History International Travel<30 days: No Contact w/Intl Traveler<30days: No Traveled to known affect area: No History of Present Illness HPI This 36-year-old female is complaining of chest pain and back pain. She has a history of sickle cell anemia and says she is having crisis. She is also having her period now says she is bleeding more than usual. She is not aware of any fever or chills. She does have frequent urinary tract infections. She says there is no chance of PFSH Past Medical History Hx Anticoagulant Therapy: Yes (ASA) Anemia: Yes (SICKLE CELL) Arthritis: No Asthma: No Autoimmune Disease: No Blood Disorders: Yes (SICKLE CELL) Anxiety: No Depression: No Heart Rhythm Problems: No Cancer: No Cardiovascular Problems: Yes (htn on meds) High Cholesterol: No Chemotherapy: No Chest Pain: No Congestive Heart Failure: No COPD: No Cerebrovascular Accident: No Diabetes: No Diminished Hearing: No Deep Vein Thrombosis: Yes (HX LEFT ARM ) Endocrine: No Gastrointestinal Disorders: No GERD: No Glaucoma: No Genitourinary: No Headaches: Yes Hepatitis: No Hiatal Hernia: No Heparin Induced Thrombocytopen: No Hypertension: Yes Immune Disorder: Yes (SICKLE CELL) Implanted Vascular Access Dvce: Yes (POWER INFUSAPORT) Kidney Stones: No Musculoskeletal: Yes (SCOLIOSIS) Neurologic: No Psychiatric: No Reproductive: No Respiratory: No Immunizations Current: Yes Migraines: Yes Pneumonia: Yes (CURRENTLY BEING TREATED ) Radiation Therapy: No Renal Failure: No Seizures: No Sickle Cell Disease: Yes Sleep Apnea: No Thyroid Disease: No Ulcer: No Tetanus Vaccination: < 5 Years Influenza Vaccination: Yes PNEUMOCCOCAL Vaccine (Year): 2008 ?: Not LMP: today Menopausal: No : 5 Para: 2 Miscarriage: 3 : 0 Ovarian Cysts: Yes Past Surgical History Abdominal Surgery: Yes (CHOLECYSTECTOMY) AICD: No Appendectomy: Yes Arteriovenous Shunt: No Body Medical Devices: CATIA IN UPPER BACK Cardiac Surgery: No Cholecystectomy: Yes Ear Surgery: No Endocrine Surgery: No Eye Surgery: No Genitourinary Surgery: No Gynecologic Surgery: No Hysterectomy: No Insulin Pump: No Joint Replacement: Yes (R HIP REPLACEMENT 2011, L HIP 2014) Neurologic Surgery: No Oral Surgery: No Pacemaker: No Thoracic Surgery: No Other Surgery: Yes (INSERTION OF INFUSA PORTX 3) Social History Alcohol Use: Yes (occass. wine) Tobacco Use: No Substance Use: No Allergies-Medications (Allergen,Severity, Reaction): Coded Allergies: ketorolac (Unverified Allergy, Severe, Itching, 12/26/16) morphine (Unverified Allergy, Mild, Swelling, 12/26/16) ibuprofen (Unverified Adverse Reaction, Severe, Urinary Freq (Inc/Dec), ) RENAL FAILURE methadone (Unverified Adverse Reaction, Severe, DEPRESSION, 12/26/16) Reported Meds & Prescriptions Reported Meds & Active Scripts Active Reported Dilaudid (Hydromorphone HCl) 4 Mg Tab 4 Mg PO Q6H PRN Hydrea (Hydroxyurea) 500 Mg Cap 500 Mg PO TID Folic Acid 400 Mcg Tab 1 Mg PO DAILY Aspirin 81 Mg Chew 81 Mg CHEW DAILY Jadenu (Deferasirox) 90 Mg Tab DAILY Amlodipine (Amlodipine Besylate) 5 Mg Tab 5 Mg PO DAILY Review of Systems General / Constitutional: No: Fever, Chills Eyes: No: Diploplia, Blurred Vision HENT: No: Headaches Cardiovascular: Positive: Chest Pain or Discomfort Respiratory: No: Cough Gastrointestinal: No: Vomiting, Diarrhea Genitourinary: No: Urgency Musculoskeletal: Positive: Myalgias, Pain Skin: No Rash, No Itching Neurologic: No: Weakness, Dizziness Hematologic/Lymphatic: No: Easy Bruising Physical Exam Narrative GENERAL: Well-developed female SKIN: Focused skin assessment warm/dry. HEAD: Atraumatic. Normocephalic. EYES: Pupils equal and round. No scleral icterus. No injection or drainage. ENT: No nasal bleeding or discharge. Mucous membranes pink and moist. NECK: Trachea midline. No JVD. CARDIOVASCULAR: Regular rate and rhythm. No murmur appreciated. RESPIRATORY: No accessory muscle use. Clear to auscultation. Breath sounds equal bilaterally. GASTROINTESTINAL: Abdomen soft, non-tender, nondistended. Hepatic and splenic margins not palpable. MUSCULOSKELETAL: No obvious deformities. No clubbing. No cyanosis. No edema. NEUROLOGICAL: Awake and alert. No obvious cranial nerve deficits. Motor grossly within normal limits. Normal speech. PSYCHIATRIC: Appropriate mood and affect; insight and judgment normal. Data Data Last Documented VS Vital Signs Date Time Temp Pulse Resp B/P (MAP) Pulse Ox O2 Delivery O2 Flow Rate FiO2 12/26/16 14:55 82 16 136/82 (100) 99 Room Air 12/26/16 12:55 99.2 Orders Orders Complete Blood Count With Diff (12/26/16 13:15) Retic Count (12/26/16 13:15) Iv Access Insert/Monitor (12/26/16 13:15) Comprehensive Metabolic Panel (12/26/16 13:26) Urinalysis - C+S If Indicated (12/26/16 13:26) Ecg Monitoring (12/26/16 13:26) Oximetry (12/26/16 13:26) Hydromorphone Pf Inj (Dilaudid Pf Inj) (12/26/16 13:30) Ondansetron Inj (Zofran Inj) (12/26/16 13:30) Sodium Chloride 0.9% Flush (Ns Flush) (12/26/16 13:30) Sodium Chlor 0.9% 1000 Ml Inj (Ns 1000 M (12/26/16 13:26) Diphenhydramine Inj (Benadryl Inj) (12/26/16 13:30) Urine Culture (12/26/16 13:45) Hydromorphone Pf Inj (Dilaudid Pf Inj) (12/26/16 14:45) Sulfamet-Trimeth Ds 800-160 Mg (Bactrim (12/26/16 16:00) Heparin Central Flush (Heparin Central F (12/26/16 16:00) Labs Laboratory Tests Test 12/26/16 13:00 12/26/16 13:45 White Blood Count 7.9 TH/MM3 Red Blood Count 2.79 MIL/MM3 Hemoglobin 8.5 GM/DL Hematocrit 25.3 % Mean Corpuscular Volume 90.6 FL Mean Corpuscular Hemoglobin 30.6 PG Mean Corpuscular Hemoglobin Concent 33.7 % Red Cell Distribution Width 26.3 % Platelet Count 401 TH/MM3 Mean Platelet Volume 8.7 FL Neutrophils (%) (Auto) 47.9 % Lymphocytes (%) (Auto) 33.5 % Monocytes (%) (Auto) 10.8 % Eosinophils (%) (Auto) 6.1 % Basophils (%) (Auto) 1.7 % Neutrophils # (Auto) 3.9 TH/MM3 Lymphocytes # (Auto) 2.6 TH/MM3 Monocytes # (Auto) 0.8 TH/MM3 Eosinophils # (Auto) 0.5 TH/MM3 Basophils # (Auto) 0.1 TH/MM3 CBC Comment AUTO DIFF Differential Comment AUTO DIFF CONFIRMED Sickle Cells 1+ Target Cells 2+ Ovalocytes 1+ Keratocytes 1+ Reticulocyte Count 14.4 % Absolute Reticulocyte Count 373.5 MIL/L Blood Urea Nitrogen 14 MG/DL Creatinine 0.96 MG/DL Random Glucose 83 MG/DL Total Protein 8.0 GM/DL Albumin 3.7 GM/DL Calcium Level 9.0 MG/DL Alkaline Phosphatase 107 U/L Aspartate Amino Transf (AST/SGOT) 49 U/L Alanine Aminotransferase (ALT/SGPT) 31 U/L Total Bilirubin 1.2 MG/DL Sodium Level 137 MEQ/L Potassium Level 4.0 MEQ/L Chloride Level 106 MEQ/L Carbon Dioxide Level 25.5 MEQ/L Anion Gap 6 MEQ/L Estimat Glomerular Filtration Rate 81 ML/MIN Urine Collection Type CLEAN CATCH Urine Color YELLOW Urine Turbidity SLIGHT Urine pH 6.5 Urine Specific [place] 1.010 Urine Protein 30 mg/dL Urine Glucose (UA) NEG mg/dL Urine Ketones NEG mg/dL Urine Occult Blood LARGE Urine Nitrite NEG Urine Bilirubin NEG Urine Leukocyte Esterase NEG Urine RBC 20-24 /hpf Urine WBC 15-19 /hpf Urine Squamous Epithelial Cells > 8 /hpf Urine Bacteria FEW /hpf Microscopic Urinalysis Comment CULTURE INDICATED Urine Collection Time 13:45 MDM Medical Decision Making Medical Screen Exam Complete: Yes Emergency Medical Condition: Yes Medical Record Reviewed: Yes Differential Diagnosis Differential includes sickle cell crisis, anemia, Narrative Course Patient has been given IV fluids and Dilaudid. She reports resolution of pain. urinalysis does show white cells consistent with a urinary tract infection Diagnosis Primary Impression: Vaso-occlusive sickle cell crisis Additional Impression: Urinary tract infection Scripts Sulfamethoxazole-Trimethoprim (Bactrim DS) 800-160 Mg Tab 1 TAB PO BID for Infection, #14 TAB 0 Refills Prov: Jacob Mauro MD 12/26/16 Disposition: 01 DISCHARGE HOME Condition: Stable Jacob Mauro MD Dec 26, 2016 13:29
[2016-12-26] MEDS ORDERED: ONDANSETRON HCL 4 MG/2 ML VIAL IVP ONE (13:30)
[2016-12-26] MEDS ORDERED: HYDROmorphone HCL PF 2 MG/ML VIAL IVS ONE (13:30)
[2016-12-26] MEDS ORDERED: SODIUM CHLORIDE 0.9% FLUSH 10 ML FLUSH IVF PRN (13:30)
[2016-12-26] MEDS ORDERED: diphenhydrAMINE HCL 50 MG/ML VIAL IV PUSH ONE (13:30)
[2016-12-26 13:49] LABS: CHLORIDE 106 MEQ/L (98-107); KERATOCYTES 1+ (NORMAL); OVALOCYTES 1+ (NORMAL); SCAN/DIFF AUTO DIFF CONFIRMED; SICKLE CELLS 1+ (NORMAL); SODIUM (NA) 137 MEQ/L (136-145); TARGET CELLS 2+ (NORMAL)
[2016-12-26 13:53] LABS: ANION GAP 6 MEQ/L (5-15); BICARBONATE 25.5 MEQ/L (21.0-32.0); BLOOD UREA NITROGEN 14 MG/DL (7-18)
[2016-12-26 13:56] LABS: ALT (GPT) 31 U/L (10-53); AST (GOT) 49 U/L (15-37); GLOMERULAR FILTRATION RATE 81 ML/MIN (>89)
[2016-12-26 13:57] LABS: TOTAL BILIRUBIN ADULT 1.2 MG/DL (0.2-1.0)
[2016-12-26 13:59] LABS: ALKALINE PHOSPHATASE 107 U/L (45-117)
[2016-12-26 14:04] LABS: BLOOD, URINE LARGE (NEG); GLUCOSE,URINE NEG (NEG); KETONE, URINE NEG (NEG); NITRITE,URINE NEG (NEG); PH, URINE 6.5 (5.0-8.5)
[2016-12-26 14:07] LABS: METHOD OF COLLECTION CLEAN CATCH; URINE COLOR YELLOW (YELLW/STRAW)
[2016-12-26 14:08] LABS: BACTERIA, URINE FEW /hpf; COMMENT (UR) CULTURE INDICATED; CULTURE IF INDICATED CULTURE INDICATED; SQUAMOUS EPITHELIAL CELL URINE > 8 /hpf (0-5); WBC, URINE 15-19 /hpf (0-5)
[2016-12-26] MEDS ORDERED: HYDROmorphone HCL PF 2 MG/ML VIAL IV PUSH ONE (14:45)
[2016-12-26 14:51] LABS: RETIC % 14.4 % (0.4-3.0)
[2016-12-26 14:55] VITALS: BP 136/82; PULSE 82; RESP 16; O2SAT 99
[2016-12-26] MEDS ORDERED: BACT800T5 PO (15:53)
[2016-12-26] MEDS ORDERED: SULFAMETHOXAZOLE-TRIMETHOPRIM DS 800-160 MG TAB PO ONE (16:00)
[2016-12-26 16:24] VITALS: BP 115/76
== END 2016-12-26 17:13 | disposition home or self-care (01) ==
LOC: PHED 11:48
DX: D57.00 Hb-SS disease with crisis, unspecified (principal); N39.0 Urinary tract infection, site not specified; R07.9 Chest pain, unspecified; M54.9 Dorsalgia, unspecified; I10 Essential (primary) hypertension; Z79.82 Long term (current) use of aspirin; Z86.2 Personal history of diseases of the blood and blood-forming organs and certain disorders involving the immune mechanism; Z86.79 Personal history of other diseases of the circulatory system; Z86.718 Personal history of other venous thrombosis and embolism; Z87.39 Personal history of other diseases of the musculoskeletal system and connective tissue; Z87.42 Personal history of other diseases of the female genital tract
CPT/HCPCS: 80053; 81001; 85025; 85044; 87086; 96361; 96374; 96375; 96376; 99284; J1170; J1200; J1642; J2405; J7030

== ENCOUNTER 2017-01-13 08:44 | Inpatient (IN) | payer MEDICARE, OTHER ==
[2017-01-13] VITALS (7 sets, daily range): BP systolic 105–141; BP diastolic 67–95; PULSE 80–102; RESP 16–20; TEMP 98.3–98.9; O2SAT 94–99
[~2017-01-13] VITALS: Ht 165.1 cm; Wt 65.9 kg
[~2017-01-13 08:44] MED LIST changes: +BACT800T5 PO
[2017-01-13] MEDS ORDERED: SODIUM CHLOR 0.9% 1000 ML INJ 1,000 ML IV ONE (09:29)
[2017-01-13] MEDS ORDERED: diphenhydrAMINE HCL 50 MG/ML VIAL IV PUSH ONE ×2 (09:30→11:00)
[2017-01-13] MEDS ORDERED: HYDROmorphone HCL PF 1 MG/ML VIAL IVS ONE (09:30)
[2017-01-13] MEDS ORDERED: SODIUM CHLORIDE 0.9% FLUSH 10 ML FLUSH IVF PRN (09:30)
--- NOTE | 2017-01-13 09:35 | PD ---
HPI Chief Complaint: Sickle Cell Time Seen by Provider: 09:26 Travel History International Travel<30 days: No Contact w/Intl Traveler<30days: No Traveled to known affect area: No History of Present Illness HPI 36yo F with PMH of sickle cell disease presents to the ED with c/o sickle cell crisis since yesterday. States she has pain all over and it feels like her usual sickle cell crisis. Denies any fever, chest pain, sob, n/v, abdominal pain, urinary complaints, focal weakness or numbness. Pt follows with Dr. Sandoval for frequent vasoocclusive crisis and last saw her earlier this month. PFSH Past Medical History Hx Anticoagulant Therapy: Yes (ASA) Anemia: Yes (SICKLE CELL) Arthritis: No Asthma: No Autoimmune Disease: No Blood Disorders: Yes (SICKLE CELL) Anxiety: No Depression: No Heart Rhythm Problems: No Cancer: No Cardiovascular Problems: Yes (htn on meds) High Cholesterol: No Chemotherapy: No Chest Pain: No Congestive Heart Failure: No COPD: No Cerebrovascular Accident: No Diabetes: No Diminished Hearing: No Deep Vein Thrombosis: Yes (HX LEFT ARM ) Endocrine: No Gastrointestinal Disorders: No GERD: No Glaucoma: No Genitourinary: No Headaches: Yes Hepatitis: No Hiatal Hernia: No Heparin Induced Thrombocytopen: No Hypertension: Yes Immune Disorder: Yes (SICKLE CELL) Implanted Vascular Access Dvce: Yes (POWER INFUSAPORT) Kidney Stones: No Musculoskeletal: Yes (SCOLIOSIS) Neurologic: No Psychiatric: No Reproductive: No Respiratory: No Immunizations Current: Yes Migraines: Yes Pneumonia: Yes Radiation Therapy: No Renal Failure: No Seizures: No Sickle Cell Disease: Yes Sleep Apnea: No Thyroid Disease: No Ulcer: No Influenza Vaccination: Yes PNEUMOCCOCAL Vaccine (Year): 2008 ?: Not Menopausal: No : 5 Para: 2 Miscarriage: 3 : 0 Ovarian Cysts: Yes Past Surgical History Abdominal Surgery: Yes (CHOLECYSTECTOMY) AICD: No Appendectomy: Yes Arteriovenous Shunt: No Body Medical Devices: CATIA IN UPPER BACK Cardiac Surgery: No Cholecystectomy: Yes Ear Surgery: No Endocrine Surgery: No Eye Surgery: No Genitourinary Surgery: No Gynecologic Surgery: No Hysterectomy: No Insulin Pump: No Joint Replacement: Yes (R HIP REPLACEMENT 2011, L HIP 2014) Neurologic Surgery: No Oral Surgery: No Pacemaker: No Thoracic Surgery: No Other Surgery: Yes (INSERTION OF INFUSA PORTX 3) Social History Alcohol Use: Yes (occass. wine) Tobacco Use: No Substance Use: No Allergies-Medications (Allergen,Severity, Reaction): Coded Allergies: ketorolac (Unverified Allergy, Severe, Itching, 01/13/17) morphine (Unverified Allergy, Mild, Swelling, 01/13/17) ibuprofen (Unverified Adverse Reaction, Severe, Urinary Freq (Inc/Dec), ) RENAL FAILURE methadone (Unverified Adverse Reaction, Severe, DEPRESSION, 01/13/17) Reported Meds & Prescriptions Reported Meds & Active Scripts Active Reported Dilaudid (Hydromorphone HCl) 4 Mg Tab 4 Mg PO Q6H PRN Hydrea (Hydroxyurea) 500 Mg Cap 500 Mg PO TID Folic Acid 400 Mcg Tab 1 Mg PO DAILY Aspirin 81 Mg Chew 81 Mg CHEW DAILY Jadenu (Deferasirox) 90 Mg Tab DAILY Amlodipine (Amlodipine Besylate) 5 Mg Tab 5 Mg PO DAILY Review of Systems Except as stated in HPI: all other systems reviewed are Neg Physical Exam Narrative GENERAL: 36yo F in mild distress. SKIN: Focused skin assessment warm/dry. HEAD: Atraumatic. Normocephalic. EYES: Pupils equal and round. No scleral icterus. No injection or drainage. ENT: No nasal bleeding or discharge. Mucous membranes pink and moist. NECK: Trachea midline. No JVD. CARDIOVASCULAR: Regular rate and rhythm. No murmur appreciated. RESPIRATORY: No accessory muscle use. Clear to auscultation. Breath sounds equal bilaterally. GASTROINTESTINAL: Abdomen soft, non-tender, nondistended. MUSCULOSKELETAL: No obvious deformities. No clubbing. No cyanosis. No edema. NEUROLOGICAL: Awake and alert. No obvious cranial nerve deficits. Motor grossly within normal limits. Normal speech. PSYCHIATRIC: Appropriate mood and affect; insight and judgment normal. Data Data Last Documented VS Vital Signs Date Time Temp Pulse Resp B/P (MAP) Pulse Ox O2 Delivery O2 Flow Rate FiO2 01/13/17 11:39 18 01/13/17 11:04 80 140/88 (105) 97 Room Air 01/13/17 08:51 98.9 Orders Orders Basic Metabolic Panel (Bmp) (01/13/17 09:29) Complete Blood Count With Diff (01/13/17 09:29) Retic Count (01/13/17 09:29) Ecg Monitoring (01/13/17 09:29) Oximetry (01/13/17 09:29) Sodium Chloride 0.9% Flush (Ns Flush) (01/13/17 09:30) Sodium Chlor 0.9% 1000 Ml Inj (Ns 1000 M (01/13/17 09:29) Hydromorphone Pf Inj (Dilaudid Pf Inj) (01/13/17 09:30) Diphenhydramine Inj (Benadryl Inj) (01/13/17 09:30) Ondansetron Inj (Zofran Inj) (01/13/17 10:00) Hydromorphone Pf Inj (Dilaudid Pf Inj) (01/13/17 11:00) Diphenhydramine Inj (Benadryl Inj) (01/13/17 11:00) Urinalysis - C+S If Indicated (01/13/17 11:56) Ed Urine Pregnancytest Poc (01/13/17 11:56) Admit Order (Ed Use Only) (01/13/17 12:05) Admit To Inpatient (01/13/17 ) Vital Signs (Adult) KALEIGH.Q4H (01/13/17 12:07) Activity Oob With Assistance (01/13/17 12:07) Sodium Chlor 0.45% 1000 Ml Inj (1/2 Ns 1 (01/13/17 12:07) Inpatient Certification (01/13/17 ) Labs Laboratory Tests Test 01/13/17 09:45 White Blood Count 11.0 TH/MM3 Corrected White Blood Count 10.5 TH/MM3 Red Blood Count 2.38 MIL/MM3 Hemoglobin 7.2 GM/DL Hematocrit 21.4 % Mean Corpuscular Volume 90.0 FL Mean Corpuscular Hemoglobin 30.2 PG Mean Corpuscular Hemoglobin Concent 33.5 % Red Cell Distribution Width 24.4 % Platelet Count 312 TH/MM3 Mean Platelet Volume 8.0 FL CBC Comment AUTO DIFF Differential Total Cells Counted 100 Neutrophils % (Manual) 53 % Lymphocytes % 40 % Monocytes % 5 % Eosinophils % 2 % Neutrophils # (Manual) 5.6 TH/MM3 Nucleated Red Blood Cells 5 /100 WBC Differential Comment FINAL DIFF MANUAL Platelet Estimate NORMAL Platelet Morphology Comment NORMAL Sickle Cells 2+ Target Cells 2+ Ovalocytes 2+ Car[place] Bodies PRESENT Keratocytes 1+ Reticulocyte Count 5.0 % Absolute Reticulocyte Count 117.6 MIL/L Blood Urea Nitrogen 12 MG/DL Creatinine 0.98 MG/DL Random Glucose 87 MG/DL Calcium Level 8.3 MG/DL Sodium Level 141 MEQ/L Potassium Level 4.5 MEQ/L Chloride Level 107 MEQ/L Carbon Dioxide Level 24.6 MEQ/L Anion Gap 9 MEQ/L Estimat Glomerular Filtration Rate 79 ML/MIN MDM Medical Decision Making Medical Screen Exam Complete: Yes Emergency Medical Condition: Yes Differential Diagnosis Vasoocclusive crisis vs. dehydration Narrative Course 36yo F with sickle cell disease who has frequent vasoocclusive crisis here with her usual crisis. Labs reviewed, no leukocytosis. H/H is low at 7.2/21.4, this is slightly lower than her baseline. BMP unremarkable. Pt given NS IVF, dialudid x2 and diphenhydramine and said her pain is still a 5 out of 10. Since her hemoglobin is lower than normal and she is still in pain, will admit for observation. Discussed with Dr. Deluca and accepted to his service. Diagnosis Primary Impression: Vaso-occlusive sickle cell crisis Admitting Information Admitting Physician Requests: Observation Carol Dejesus DO Jan 13, 2017 09:35
[2017-01-13 09:52] LABS: HEMATOCRIT 21.4 % (35.0-46.0); MEAN CORPUSCULAR HEMOGLOBIN 30.2 PG (27.0-34.0); MEAN CORPUSCULAR HGB CONC 33.5 % (32.0-36.0); PLATELET COUNT 312 TH/MM3 (150-450); RED BLOOD COUNT 2.38 MIL/MM3 (4.00-5.30); RED CELL DISTRIBUTION WIDTH 24.4 % (11.6-17.2)
[2017-01-13 09:54] LABS: HEMO FLAGS AUTO DIFF
[2017-01-13] MEDS ORDERED: ONDANSETRON HCL 4 MG/2 ML VIAL IV PUSH ONE (10:00)
[2017-01-13 10:05] LABS: POTASSIUM 4.5 MEQ/L (3.5-5.1)
[2017-01-13 10:10] LABS: BICARBONATE 24.6 MEQ/L (21.0-32.0)
[2017-01-13 10:22] LABS: CORRECTED NUCLEATED RBC 5 /100 WBC (0-0); CORRECTED WBC 10.5 TH/MM3 (4.0-11.0); EOSINOPHILS 2 % (0-4); KERATOCYTES 1+ (NORMAL); NEUTROPHIL # MANUAL DIFF 5.6 TH/MM3 (1.8-7.7); OVALOCYTES 2+ (NORMAL); POLYS (SEG NEUTROPHILS) 53 % (16-70); SICKLE CELLS 2+ (NORMAL); TARGET CELLS 2+ (NORMAL); WBC DIFF SAMPLE 100
[2017-01-13 10:23] LABS: HOWELL-JOLLY BODIES PRESENT (NONE SEEN); PLATELET ESTIMATE SMEAR NORMAL (NORMAL); PLATELET MORPHOLOGY NORMAL (NORMAL); SCAN/DIFF FINAL DIFF MANUAL
[2017-01-13] MEDS ORDERED: HYDROmorphone HCL PF 1 MG/ML VIAL IV PUSH ONE (11:00)
[2017-01-13 11:05] LABS: REVIEW FLAG FINAL
[2017-01-13 12:36] LABS: BLOOD, URINE TRACE (NEG); GLUCOSE,URINE NEG (NEG); KETONE, URINE NEG (NEG); NITRITE,URINE NEG (NEG)
[2017-01-13 12:40] LABS: METHOD OF COLLECTION CLEAN CATCH; URINE COLOR YELLOW (YELLW/STRAW); WBC, URINE 0-2 /hpf (0-5)
[2017-01-13 12:41] LABS: COMMENT (UR) CULT NOT INDICATED; CULTURE IF INDICATED CULT NOT INDICATED; RBC, URINE 0-3 /hpf (0-3); SQUAMOUS EPITHELIAL CELL URINE > 8 /hpf (0-5)
[2017-01-13] MEDS: SODIUM CHLOR 0.45% 1000 ML INJ 1,000 ML IV SCH (13:06)
[2017-01-13] MEDS ORDERED: diphenhydrAMINE HCL 50 MG/ML VIAL IM PRN (14:30)
--- NOTE | 2017-01-13 14:52 | HHI.HP ---
HPI Service [facility] Primary Care Physician Lilo Shea MD Admission Diagnosis Vasoocculsive crisis Diagnoses: Chief Complaint: Pain all over pain all over Travel History International Travel<30 Days: No Contact w/Intl Traveler <30 Da: No Traveled to Known Affected Are: No History of Present Illness 36-year-old black female being admitted for sickle cell vaso-occlusive crisis. Patient was in her usual state of health until yesterday morning when she suddenly felt an onset of diffuse bodily pain including her arms chest and legs. 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 She says that the pain began to intensify further and decided to come to the emergency room. She states that these symptoms are the same symptoms she has with her previous sickle cell crises, denies any new additional symptoms. Denies any fevers chills nausea vomiting diarrhea. Tolerating by mouth intake. At time of my evaluation, states pain is 5/10. Review of Systems Except as stated in HPI: all other systems reviewed are Neg Past Family Social History Past Medical History Sickle cell disease History of avascular necrosis chronic kidney disease due to blood transfusion iron overload History of DVT left arm scoliosis migraines because of medications. Past Surgical History Right total hip replacement 2011 Left hip replacement 2014 cholecystectomy 2002 back surgery at age 15 (joey placed) [id number] R chest Allergies: Coded Allergies: ketorolac (Unverified Allergy, Severe, Itching, 01/13/17) morphine (Unverified Allergy, Mild, Swelling, 01/13/17) ibuprofen (Unverified Adverse Reaction, Severe, Urinary Freq (Inc/Dec), ) RENAL FAILURE methadone (Unverified Adverse Reaction, Severe, DEPRESSION, 01/13/17) Family History mother having hypertension and sickle cell, father with diabetes hypertension and sickle cell Social History Denies smoking, illicit drug use, and drinking Physical Exam Vital Signs Vital Signs Date Time Temp Pulse Resp B/P (MAP) Pulse Ox O2 Delivery O2 Flow Rate FiO2 01/13/17 14:34 100 01/13/17 14:13 01/13/17 13:09 96 Room Air 01/13/17 11:39 18 01/13/17 11:04 80 18 140/88 (105) 97 Room Air 01/13/17 10:07 18 01/13/17 09:51 88 18 141/95 (110) 97 Room Air 01/13/17 08:51 98.9 90 16 118/72 (87) 97 Room Air Physical Exam VS: Reviewed, afebrile GENERAL: young Black female, no acute distress SKIN: Warm and dry. EYES: Pupils equal and round. No scleral icterus. No injection or drainage. ENT: No nasal bleeding or discharge. Mucous membranes pink and moist. CARDIOVASCULAR: Regular rate and rhythm. no murmurs RESPIRATORY: No accessory muscle use. Clear to auscultation. Breath sounds equal bilaterally. GASTROINTESTINAL: Abdomen soft, non-tender, nondistended. Hepatic and splenic margins not palpable. Extremities: No clubbing, cyanosis, or edema. No obvious deformities. MUSCULOSKELETAL: No obvious deformities. grossly intact ROM with 5/5 strength in upper and lower extremities proximally. No TTP over arms nor over calves. NEUROLOGICAL: Awake and alert. No obvious cranial nerve deficits. No facial droop nor slurred speech noted. PSYCHIATRIC: Appropriate mood and affect; insight and judgment normal. Laboratory Laboratory Tests Test 01/13/17 09:45 01/13/17 12:30 White Blood Count 11.0 Corrected White Blood Count 10.5 Red Blood Count 2.38 Hemoglobin 7.2 Hematocrit 21.4 Mean Corpuscular Volume 90.0 Mean Corpuscular Hemoglobin 30.2 Mean Corpuscular Hemoglobin Concent 33.5 Red Cell Distribution Width 24.4 Platelet Count 312 Mean Platelet Volume 8.0 CBC Comment AUTO DIFF Differential Total Cells Counted 100 Neutrophils % (Manual) 53 Lymphocytes % 40 Monocytes % 5 Eosinophils % 2 Neutrophils # (Manual) 5.6 Nucleated Red Blood Cells 5 Differential Comment FINAL DIFF MANUAL Platelet Estimate NORMAL Platelet Morphology Comment NORMAL Sickle Cells 2+ Target Cells 2+ Ovalocytes 2+ Caraballo-[place] Bodies PRESENT Keratocytes 1+ Reticulocyte Count 5.0 Absolute Reticulocyte Count 117.6 Blood Urea Nitrogen 12 Creatinine 0.98 Random Glucose 87 Calcium Level 8.3 Sodium Level 141 Potassium Level 4.5 Chloride Level 107 Carbon Dioxide Level 24.6 Anion Gap 9 Estimat Glomerular Filtration Rate 79 Urine Collection Type CLEAN CATCH Urine Color YELLOW Urine Turbidity SLIGHT Urine pH 6.0 Urine Specific [place] 1.008 Urine Protein NEG Urine Glucose (UA) NEG Urine Ketones NEG Urine Occult Blood TRACE Urine Nitrite NEG Urine Bilirubin NEG Urine Leukocyte Esterase NEG Urine RBC 0-3 Urine WBC 0-2 Urine Squamous Epithelial Cells > 8 Microscopic Urinalysis Comment CULT NOT INDICATED Urine Collection Time 12:30 Result Diagram: 01/13/1794401/13/17944 Caprini VTE Risk Assessment Caprini VTE Risk Assessment: Mod/High Risk (score >= 2) Caprini Risk Assessment Model Point Value = 1 Point Value = 2 Point Value = 3 Point Value = 5 Age 41-60 Minor surgery BMI > 25 kg/m2 Swollen legs Varicose veins or History of unexplained or recurrent spontaneous Oral contraceptives or hormone replacement Sepsis (< 1 month) Serious lung disease, including pneumonia (< 1 month) Abnormal pulmonary function Acute myocardial infarction Congestive heart failure (< 1 month) History of inflammatory bowel disease Medical patient at bed rest Age 61-74 Arthroscopic surgery Major open surgery (> 45 min) Laparoscopic surgery (> 45 min) Malignancy Confined to bed (> 72 hours) Immobilizing plaster cast Central venous access Age >= 75 History of VTE Family history of VTE Factor V Leiden Prothrombin [id number] Lupus anticoagulant Anticardiolipin antibodies Elevated serum homocysteine Heparin-induced thrombocytopenia Other congenital or acquired thrombophilia Stroke (< 1 month) Elective arthroplasty Hip, pelvis, or leg fracture Acute spinal cord injury (< 1 month) Prophylaxis Regimen Total Risk Factor Score Risk Level Prophylaxis Regimen 0-1 Low Early ambulation 2 Moderate Order ONE of the following: *Sequential Compression Device (SCD) *Heparin 5000 units SQ BID 3-4 Higher Order ONE of the following medications: *Heparin 5000 units SQ TID *Enoxaparin/Lovenox 40 mg SQ daily (WT < 150 kg, CrCl > 30 mL/min) *Enoxaparin/Lovenox 30 mg SQ daily (WT < 150 kg, CrCl > 10-29 mL/min) *Enoxaparin/Lovenox 30 mg SQ BID (WT < 150 kg, CrCl > 30 mL/min) AND/OR *Sequential Compression Device (SCD) 5 or more Highest Order ONE of the following medications: *Heparin 5000 units SQ TID (Preferred with Epidurals) *Enoxaparin/Lovenox 40 mg SQ daily (WT < 150 kg, CrCl > 30 mL/min) *Enoxaparin/Lovenox 30 mg SQ daily (WT < 150 kg, CrCl > 10-29 mL/min) *Enoxaparin/Lovenox 30 mg SQ BID (WT < 150 kg, CrCl > 30 mL/min) AND *Sequential Compression Device (SCD) Assessment and Plan Assessment and Plan 36-year-old black female being admitted for sickle cell this occlusive pain crisis. Sickle cell pain crisis - Discussed case with Dr. Shea her primary dry mill operator, transfuse 1 unit, no need to repeat hemogram in a.m., hold home Jadenua - Starting IV hydromorphone every 2 hours as needed - Benadryl when necessary itching - IV fluids sickle cell anemia - Continue home hydroxyurea and folic acid HTN - continue home amlodipine heparin for DVT prophylaxis. Physician Certification 2 Midnight Certification Type: Admission for Inpatient Services Order for Inpatient Services The services are ordered in accordance with Medicare regulations or non- Medicare payer requirements, as applicable. In the case of services not specified as inpatient-only, they are appropriately provided as inpatient services in accordance with the 2-midnight benchmark. Estimated LOS (days): 1 1 days is the estimated time the patient will need to remain in the hospital, assuming treatment plan goals are met and no additional complications. Post-Hospital Plan: Home Minesh Deluca MD Jan 13, 2017 14:52
[2017-01-13] MEDS ORDERED: SODIUM CHLOR 0.9% 250 ML INJ 250 ML IV ONE (15:15)
[2017-01-13] MEDS ORDERED: ACETAMINOPHEN 325 MG TAB PO PRN (15:15)
[2017-01-13] MEDS: HYDROmorphone HCL PF 0.5 MG/0.5 ML SYRINGE IV PUSH PRN ×4 (15:20→22:07)
[2017-01-13] MEDS: amLODIPine BESYLATE 5 MG TAB PO SCH (15:21)
[2017-01-13] MEDS: ASPIRIN 81 MG CHEW TAB CHEW SCH (15:21)
[2017-01-13] MEDS: FOLIC ACID 1 MG TAB PO SCH (15:21)
[2017-01-13] MEDS: diphenhydrAMINE HCL 25 MG CAP PO PRN ×2 (15:36→19:52)
[2017-01-13] MEDS ORDERED: SODIUM CHLORIDE 0.9% FLUSH 10 ML FLUSH IV FLUSH PRN (17:00)
[2017-01-13] MEDS: HEPARIN SODIUM - SQ 10,000 UNITS/ML VIAL SQ SCH ×2 (17:18→22:04)
[2017-01-13] MEDS: HYDROXYUREA 500 MG CAP PO SCH (17:38)
[2017-01-13] MEDS ORDERED: ALTEPLASE RECOMBINANT 2 MG VIAL INTRACATH ONE (20:00)
[2017-01-14] VITALS (10 sets, daily range): BP systolic 100–135; BP diastolic 60–81; PULSE 89–114; RESP 10–20; TEMP 97.5–98.9; O2SAT 93–98
[2017-01-14] MEDS: HYDROmorphone HCL PF 0.5 MG/0.5 ML SYRINGE IV PUSH PRN ×4 (00:26→07:40)
[2017-01-14] MEDS: diphenhydrAMINE HCL 25 MG CAP PO PRN ×5 (00:26→20:05)
[2017-01-14] MEDS: SODIUM CHLOR 0.45% 1000 ML INJ 1,000 ML IV SCH ×2 (03:45→18:56)
[2017-01-14] MEDS: HEPARIN SODIUM - SQ 10,000 UNITS/ML VIAL SQ SCH ×3 (05:50→21:41)
[2017-01-14] MEDS: FOLIC ACID 1 MG TAB PO SCH (07:42)
[2017-01-14] MEDS: amLODIPine BESYLATE 5 MG TAB PO SCH ×2 (07:42→07:53)
[2017-01-14] MEDS: ASPIRIN 81 MG CHEW TAB CHEW SCH (07:43)
[2017-01-14] MEDS: HYDROXYUREA 500 MG CAP PO SCH ×3 (07:49→17:58)
[2017-01-14] MEDS: HYDROmorphone HCL PF 2 MG/ML VIAL IV PUSH PRN ×5 (09:40→20:02)
[2017-01-14] MEDS ORDERED: ONDANSETRON ODT 4 MG TAB PO PRN (15:30)
--- NOTE | 2017-01-14 17:16 | HHI.PR ---
Subjective Remarks Discussed with nursing, no deterioration since last night. Patient herself feels like she needs another day. Pain is better but not as controlled as desired. Tolerating by mouth intake well. Objective Vital Signs Date Time Temp Pulse Resp B/P (MAP) Pulse Ox O2 Delivery O2 Flow Rate FiO2 01/14/17 15:51 98.8 98 16 135/81 (99) 01/14/17 15:51 103 01/14/17 12:51 97.5 97 18 117/76 (90) 01/14/17 07:58 98.3 102 16 103/60 (74) 01/14/17 07:58 102 01/14/17 04:00 98.1 89 10 100/60 (73) 94 01/14/17 03:48 96 15 100/60 96 01/14/17 03:10 12 01/14/17 00:56 25 01/14/17 00:47 97.5 95 20 112/81 93 01/14/17 00:32 98.3 97 10 102/62 98 01/14/17 00:00 98.4 99 12 102/62 (75) 93 01/13/17 23:00 96 01/13/17 19:00 98.7 102 16 105/69 (81) 94 01/13/17 18:33 97 Nasal Cannula 1.00 I/O 01/13/17 01/13/17 01/13/17 01/14/17 01/14/17 01/14/17 07:00 15:00 23:00 07:00 15:00 23:00 Intake Total 1360 ml 482 ml 1725 ml Balance 1360 ml 482 ml 1725 ml Intake Oral 360 ml 860 ml IV Total 1000 ml 482 ml 585 ml Packed Cells 250 ml Blood Product IV Normal Saline Flush 30 ml # Voids 1 3 # Bowel Movements 0 Result Diagram: 01/13/1794401/13/17944 Objective Remarks No acute distress, no conversive dyspnea, lying in bed, awake, alert, clear breath sounds bilaterally, grossly intact range of motion of extremities with no clubbing cyanosis or edema A/P Assessment and Plan 36-year-old black female being admitted for sickle cell this occlusive pain crisis. Sickle cell pain crisis - clinically improving - Discussed case with Dr. Shea her primary surgical attendant, transfuse 1 unit, no need to repeat hemogram in a.m., hold home Jadenua - IV hydromorphone every 2 hours as needed - Benadryl when necessary itching - IV fluids - will decrease rate sickle cell anemia - Continue home hydroxyurea and folic acid HTN - continue home amlodipine heparin for DVT prophylaxis. Minesh Deluca MD Jan 14, 2017 17:16
[2017-01-14] MEDS: ONDANSETRON HCL 4 MG/2 ML VIAL IV PUSH PRN (20:24)
[2017-01-15] VITALS (14 sets, daily range): BP systolic 104–136; BP diastolic 66–87; PULSE 98–118; RESP 18–28; TEMP 97.5–100.8; O2SAT 91–94
[2017-01-15] MEDS: ONDANSETRON HCL 4 MG/2 ML VIAL IV PUSH PRN (02:16)
[2017-01-15] MEDS: HYDROmorphone HCL PF 2 MG/ML VIAL IV PUSH PRN ×5 (06:03→17:53)
[2017-01-15] MEDS: HEPARIN SODIUM - SQ 10,000 UNITS/ML VIAL SQ SCH ×3 (06:03→20:33)
[2017-01-15] MEDS: diphenhydrAMINE HCL 25 MG CAP PO PRN (06:03)
[2017-01-15] MEDS: FOLIC ACID 1 MG TAB PO SCH (07:57)
[2017-01-15] MEDS: ASPIRIN 81 MG CHEW TAB CHEW SCH (07:58)
[2017-01-15] MEDS: amLODIPine BESYLATE 5 MG TAB PO SCH ×2 (07:58→08:01)
[2017-01-15] MEDS: HYDROXYUREA 500 MG CAP PO SCH ×3 (07:59→17:54)
--- NOTE | 2017-01-15 13:31 | HHI.PR ---
Subjective Remarks Patient states that her pain is better compared to her baseline. However she's had 5 episodes of emesis since yesterday. She is not sure what is causing it. She denies abdominal pain. Last bowel movement yesterday. Objective Vitals Vital Signs Date Time Temp Pulse Resp B/P (MAP) Pulse Ox O2 Delivery O2 Flow Rate FiO2 01/15/17 12:09 97.5 104 21 104/68 (80) 94 01/15/17 08:01 108 01/15/17 08:01 98.6 108 18 111/66 (81) 93 01/15/17 07:00 114 01/15/17 04:00 100.8 118 18 115/67 (83) 91 01/15/17 00:00 99.5 114 20 136/77 (96) 93 01/14/17 23:00 114 01/14/17 20:32 13 01/14/17 20:00 98.9 106 18 109/69 (82) 94 01/14/17 15:51 98.8 98 16 135/81 (99) 01/14/17 15:51 103 I/O 01/14/17 01/14/17 01/14/17 01/15/17 01/15/17 01/15/17 07:00 15:00 23:00 07:00 15:00 23:00 Intake Total 1725 ml 1236 ml 1286 ml Balance 1725 ml 1236 ml 1286 ml Intake Oral 860 ml 630 ml IV Total 585 ml 1236 ml 656 ml Packed Cells 250 ml Blood Product IV Normal Saline Flush 30 ml # Voids 3 3 # Bowel Movements 0 1 Result Diagram: 01/13/1794401/13/17944 Objective Remarks GENERAL: Well-nourished, well-developed patient. SKIN: Warm and dry. HEAD: Normocephalic. EYES: No scleral icterus. No injection or drainage. NECK: Supple, trachea midline. No JVD or lymphadenopathy. CARDIOVASCULAR: Regular rate and rhythm without murmurs, gallops, or rubs. RESPIRATORY: Breath sounds equal bilaterally. No accessory muscle use. GASTROINTESTINAL: Abdomen soft, non-tender, nondistended. EXTREMITIES: No cyanosis, or edema. NEUROLOGICAL: Awake, alert, and oriented x 3. Non-focal. A/P Assessment and Plan -Acute vaso-occlusive pain crisis, sickle cell anemia - status post transfusion 1 unit packed red blood cells. Pain is much improved and is actually better compared to her baseline. -Nausea vomiting. Possible reaction to the IV Dilaudid. Continue supportive care with Zofran as needed. -DVT prophylaxis with SCDs. Chelsey Sheehan MD Jan 15, 2017 13:31
[2017-01-15] MEDS: SODIUM CHLOR 0.45% 1000 ML INJ 1,000 ML IV SCH (14:47)
[2017-01-15] MEDS: HYDROmorphone HCL 4 MG TAB PO PRN (20:35)
[2017-01-16] VITALS: O2SAT 91
[2017-01-16 00:01] VITALS: BP 103/62; PULSE 104; RESP 16; TEMP 98.7
[2017-01-16 04:00] VITALS: BP 107/72; PULSE 92; RESP 19; TEMP 98.9; O2SAT 91
[2017-01-16] MEDS: HEPARIN SODIUM - SQ 10,000 UNITS/ML VIAL SQ SCH (05:26)
[2017-01-16] MEDS: FOLIC ACID 1 MG TAB PO SCH (07:57)
[2017-01-16] MEDS: HYDROmorphone HCL 4 MG TAB PO PRN ×2 (07:57→13:37)
[2017-01-16] MEDS: ASPIRIN 81 MG CHEW TAB CHEW SCH (07:57)
[2017-01-16] MEDS: HYDROXYUREA 500 MG CAP PO SCH ×2 (07:57→13:00)
[2017-01-16] MEDS: amLODIPine BESYLATE 5 MG TAB PO SCH (07:57)
[2017-01-16 08:00] VITALS: BP 129/80; PULSE 100; RESP 20; TEMP 99.1; O2SAT 91
--- NOTE | 2017-01-16 11:46 | HHI.DS ---
Discharge Summary Admission Date Jan 13, 2017 at 12:07 Discharge Date: Jan 16, 2017 Admitting Diagnosis Vasoocculsive crisis (1) Sickle cell anemia with crisis ICD Code: D57.00 - Hb-SS disease with crisis Status: Acute Procedures None Brief History - From Admission 36-year-old black female being admitted for sickle cell vaso-occlusive crisis. Patient was in her usual state of health until yesterday morning when she suddenly felt an onset of diffuse bodily pain including her arms chest and legs. She went to her electro mechanical designer's office where she states she received IV fluids and further pain medications with partial relief. She says that the pain began to intensify further and decided to come to the emergency room. She states that these symptoms are the same symptoms she has with her previous sickle cell crises, denies any new additional symptoms. Denies any fevers chills nausea vomiting diarrhea. Tolerating by mouth intake. At time of my evaluation, states pain is 5/10. CBC/BMP: 01/13/17 0945 01/13/17 0945 Significant Findings Laboratory Tests Test 01/13/17 12:30 01/14/17 13:50 Urine Squamous Epithelial Cells > 8 /hpf (0-5) PE at Discharge GENERAL: Well-nourished, well-developed patient. SKIN: Warm and dry. HEAD: Normocephalic. EYES: No scleral icterus. No injection or drainage. NECK: Supple, trachea midline. No JVD or lymphadenopathy. CARDIOVASCULAR: Regular rate and rhythm without murmurs, gallops, or rubs. RESPIRATORY: Breath sounds equal bilaterally. No accessory muscle use. GASTROINTESTINAL: Abdomen soft, non-tender, nondistended. EXTREMITIES: No cyanosis, or edema. NEUROLOGICAL: Awake, alert, and oriented x 3. Non-focal. Hospital Course The patient was admitted to the hospital. She was given IV fluids and pain medicines. Her pain improved to baseline. The patient was also transfused 1 unit packed red blood cells. She'll be discharged home today to follow up with her electro mechanical designer next week. Pt Condition on Discharge: Stable Discharge Disposition: Discharge Home Discharge Time: <= 30 minutes Discharge Instructions DIET: Follow Instructions for: As Tolerated, No Restrictions Activities you can perform: Regular-No Restrictions Continued Medications: Amlodipine (Amlodipine) 5 Mg Tab 5 MG PO DAILY for Blood Pressure Management, #30 TAB 0 Refills Aspirin (Aspirin) 81 Mg Chew 81 MG CHEW DAILY for Blood Clot Prevention, TAB 0 Refills Deferasirox (Jadenu) 90 Mg Tab DAILY Folic Acid (Folic Acid) 400 Mcg Tab 1 MG PO DAILY for Nutritional Supplement, TAB 0 Refills Hydromorphone (Dilaudid) 4 Mg Tab 4 MG PO Q6H PRN for Pain Management, TAB 0 Refills Hydroxyurea (Hydrea) 500 Mg Cap 500 MG PO TID for SICKLE CELL, CAP 0 Refills Chelsey Sheehan MD Jan 16, 2017 11:46
[2017-01-16 13:42] VITALS: BP 127/76; PULSE 99; RESP 16; TEMP 97; O2SAT 92
== END 2017-01-16 13:42 | disposition home or self-care (01) | DRG 812 ==
LOC: PHED 08:44 → PHEDA 12:05 → OBSVTOIN 12:07 → PHICU 14:05
PROVIDERS: ADMIT Family Medicine; ATTEND Family Medicine
PROC: 30233N1 Transfusion of Nonautologous Red Blood Cells into Peripheral Vein, Percutaneous Approach (ICD-10-PCS; principal; 2017-01-14)
DX: D57.00 Hb-SS disease with crisis, unspecified (principal); I10 Essential (primary) hypertension; N18.9 Chronic kidney disease, unspecified; Z86.718 Personal history of other venous thrombosis and embolism; R11.2 Nausea with vomiting, unspecified; Z96.643 Presence of artificial hip joint, bilateral
CPT/HCPCS: 36430; 80048; 81001; 84703; 85007; 85027; 85044; 85660; 86850; 86900; 86901; 86920; 87500; 96361; 96374; 96375; J1170; J1200; J1642; J1644; J2405; J2997; J7030; J7050; P9016

== ENCOUNTER 2017-02-13 09:14 | Emergency (ER) | payer OTHER ==
[~2017-02-13] VITALS: Ht 165.1 cm; Wt 64.0 kg
[~2017-02-13 09:14] MED LIST changes: +ASPI-516 CHEW; -ASPI81CH CHEW; -BACT800T5 PO; +DILA4TAB10 PO; -DILA4TAB2 PO
[2017-02-13] MEDS ORDERED: AMOX500C PO (09:23)
[2017-02-13 09:26] VITALS: BP 121/72; PULSE 92; RESP 18; TEMP 98.4; O2SAT 96
[2017-02-13] MEDS ORDERED: SODIUM CHLOR 0.9% 1000 ML INJ 1,000 ML IV ONE (09:57)
[2017-02-13] MEDS ORDERED: ONDANSETRON HCL 4 MG/2 ML VIAL IVP ONE (10:00)
[2017-02-13] MEDS ORDERED: diphenhydrAMINE HCL 50 MG/ML VIAL IV PUSH ONE (10:00)
[2017-02-13] MEDS ORDERED: SODIUM CHLORIDE 0.9% FLUSH 10 ML FLUSH IVF PRN (10:00)
[2017-02-13] MEDS ORDERED: HYDROmorphone HCL PF 2 MG/ML VIAL IVS ONE (10:00)
--- NOTE | 2017-02-13 10:01 | PD ---
HPI Chief Complaint: Sickle Cell Time Seen by Provider: 09:56 Travel History International Travel<30 days: No Contact w/Intl Traveler<30days: No Traveled to known affect area: No History of Present Illness HPI Patient presents for sickle cell crisis. Onset this morning. Pain localized to her chest and lower back. Last sickle cell crisis approximate one month ago. Normally receives Dilaudid Benadryl and Zofran with good results. Denies nausea vomiting diarrhea or fever. No new rashes. Reports good fluid intake. Reports a recent tooth infection on oral antibiotics. PFSH Past Medical History Hx Anticoagulant Therapy: Yes (ASA) Anemia: Yes (SICKLE CELL) Arthritis: No Asthma: No Autoimmune Disease: No Blood Disorders: Yes (SICKLE CELL) Anxiety: No Depression: No Heart Rhythm Problems: No Cancer: No Cardiovascular Problems: Yes (htn on meds) High Cholesterol: No Chemotherapy: No Chest Pain: No Congestive Heart Failure: No COPD: No Cerebrovascular Accident: No Diabetes: No Diminished Hearing: No Deep Vein Thrombosis: Yes (HX LEFT ARM ) Endocrine: No Gastrointestinal Disorders: No GERD: No Glaucoma: No Genitourinary: No Headaches: Yes Hepatitis: No Hiatal Hernia: No Heparin Induced Thrombocytopen: No Hypertension: Yes Immune Disorder: Yes (SICKLE CELL) Implanted Vascular Access Dvce: Yes (POWER INFUSAPORT) Kidney Stones: No Musculoskeletal: Yes (SCOLIOSIS) Neurologic: No Psychiatric: No Reproductive: No Respiratory: No Immunizations Current: Yes Migraines: Yes Pneumonia: Yes Radiation Therapy: No Renal Failure: No Seizures: No Sickle Cell Disease: Yes Sleep Apnea: No Thyroid Disease: No Ulcer: No Influenza Vaccination: Yes PNEUMOCCOCAL Vaccine (Year): 2008 ?: Not Menopausal: No : 5 Para: 2 Miscarriage: 3 : 0 Ovarian Cysts: Yes Past Surgical History Abdominal Surgery: Yes (CHOLECYSTECTOMY) AICD: No Appendectomy: Yes Arteriovenous Shunt: No Body Medical Devices: CATIA IN UPPER BACK Cardiac Surgery: No Cholecystectomy: Yes Ear Surgery: No Endocrine Surgery: No Eye Surgery: No Genitourinary Surgery: No Gynecologic Surgery: No Hysterectomy: No Insulin Pump: No Joint Replacement: Yes (R HIP REPLACEMENT 2011, L HIP 2014) Neurologic Surgery: No Oral Surgery: No Pacemaker: No Thoracic Surgery: No Other Surgery: Yes (INSERTION OF INFUSA PORTX 3) Social History Alcohol Use: Yes (occass. wine) Tobacco Use: No Substance Use: No Allergies-Medications (Allergen,Severity, Reaction): Coded Allergies: ketorolac (Unverified Allergy, Severe, Itching, 02/13/17) morphine (Unverified Allergy, Mild, Swelling, 02/13/17) ibuprofen (Unverified Adverse Reaction, Severe, Urinary Freq (Inc/Dec), ) RENAL FAILURE methadone (Unverified Adverse Reaction, Severe, DEPRESSION, 02/13/17) Reported Meds & Prescriptions Reported Meds & Active Scripts Active Reported Amoxicillin 500 Mg Cap 500 Mg PO TID Dilaudid (Hydromorphone HCl) 4 Mg Tab 4 Mg PO Q6H PRN Hydrea (Hydroxyurea) 500 Mg Cap 500 Mg PO TID Folic Acid 400 Mcg Tab 1 Mg PO DAILY Aspirin 81 Mg Chew 81 Mg CHEW DAILY Jadenu (Deferasirox) 90 Mg Tab DAILY Amlodipine (Amlodipine Besylate) 5 Mg Tab 5 Mg PO DAILY Review of Systems General / Constitutional: No: Fever Eyes: No: Visual changes HENT: No: Headaches Cardiovascular: No: Chest Pain or Discomfort Respiratory: No: Shortness of Breath Gastrointestinal: No: Abdominal Pain Genitourinary: No: Dysuria Musculoskeletal: No: Pain Skin: No Rash Neurologic: No: Weakness Psychiatric: No: Depression Endocrine: No: Polydipsia Hematologic/Lymphatic: No: Easy Bruising Physical Exam Narrative GENERAL: Well-nourished, well-developed patient. SKIN: Focused skin assessment warm/dry. HEAD: Normocephalic. EYES: No scleral icterus. No injection or drainage. NECK: Supple, trachea midline. No JVD or lymphadenopathy. CARDIOVASCULAR: Regular rate and rhythm without murmurs, gallops, or rubs. RESPIRATORY: Breath sounds equal bilaterally. No accessory muscle use. GASTROINTESTINAL: Abdomen soft, non-tender, nondistended. MUSCULOSKELETAL: No cyanosis, or edema. BACK: Nontender without obvious deformity. No CVA tenderness. Data Data Last Documented VS Vital Signs Date Time Temp Pulse Resp B/P (MAP) Pulse Ox O2 Delivery O2 Flow Rate FiO2 02/13/17 12:19 18 02/13/17 09:26 98.4 92 121/72 (88) 96 Orders Orders Complete Blood Count With Diff (02/13/17 09:57) Ecg Monitoring (02/13/17 09:57) Iv Access Insert/Monitor (02/13/17 09:57) Oximetry (02/13/17 09:57) Hydromorphone Pf Inj (Dilaudid Pf Inj) (02/13/17 10:00) Ondansetron Inj (Zofran Inj) (02/13/17 10:00) Sodium Chloride 0.9% Flush (Ns Flush) (02/13/17 10:00) Sodium Chlor 0.9% 1000 Ml Inj (Ns 1000 M (02/13/17 09:57) Diphenhydramine Inj (Benadryl Inj) (02/13/17 10:00) Hydromorphone Pf Inj (Dilaudid Pf Inj) (02/13/17 11:45) Hydromorphone Pf Inj (Dilaudid Pf Inj) (02/13/17 11:45) Labs Laboratory Tests Test 02/13/17 10:17 White Blood Count 11.2 TH/MM3 Red Blood Count 2.51 MIL/MM3 Hemoglobin 7.4 GM/DL Hematocrit 22.1 % Mean Corpuscular Volume 88.1 FL Mean Corpuscular Hemoglobin 29.6 PG Mean Corpuscular Hemoglobin Concent 33.6 % Red Cell Distribution Width 24.5 % Platelet Count 319 TH/MM3 Mean Platelet Volume 8.6 FL CBC Comment AUTO DIFF Differential Total Cells Counted 100 Neutrophils % (Manual) 39 % Lymphocytes % 53 % Monocytes % 4 % Eosinophils % 4 % Neutrophils # (Manual) 4.4 TH/MM3 Nucleated Red Blood Cells 1 /100 WBC Differential Comment FINAL DIFF MANUAL Sickle Cells 2+ Target Cells 1+ MDM Medical Decision Making Medical Screen Exam Complete: Yes Emergency Medical Condition: Yes Differential Diagnosis Sickle cell crisis, malingering, anemia Narrative Course Assessment and plan discussed with patient and son at bedside. Patient received IV fluids Benadryl Zofran and Dilaudid with improvement of symptoms. Diagnosis Primary Impression: Sickle cell anemia with crisis Patient Instructions: General Instructions Additional Instructions: Encouraged to continue current treatment, follow-up with PCP, return to emergency room with any onset of new symptoms. Disposition: 01 DISCHARGE HOME Condition: Good Eagle Dougherty MD Feb 13, 2017 10:01
[2017-02-13 10:24] LABS: HEMATOCRIT 22.1 % (35.0-46.0); HEMO FLAGS AUTO DIFF; MEAN CELL VOLUME 88.1 FL (80.0-100.0); MEAN CORPUSCULAR HEMOGLOBIN 29.6 PG (27.0-34.0); MEAN CORPUSCULAR HGB CONC 33.6 % (32.0-36.0); PLATELET COUNT 319 TH/MM3 (150-450); RED BLOOD COUNT 2.51 MIL/MM3 (4.00-5.30); RED CELL DISTRIBUTION WIDTH 24.5 % (11.6-17.2); WHITE BLOOD COUNT 11.2 TH/MM3 (4.0-11.0)
[2017-02-13 11:00] LABS: CORRECTED NUCLEATED RBC 1 /100 WBC (0-0); EOSINOPHILS 4 % (0-4); NEUTROPHIL # MANUAL DIFF 4.4 TH/MM3 (1.8-7.7); POLYS (SEG NEUTROPHILS) 39 % (16-70); SCAN/DIFF FINAL DIFF MANUAL; SICKLE CELLS 2+ (NORMAL); TARGET CELLS 1+ (NORMAL); WBC DIFF SAMPLE 100
[2017-02-13] MEDS ORDERED: HYDROmorphone HCL PF 1 MG/ML VIAL IV PUSH ONE (11:45)
[2017-02-13] MEDS ORDERED: HYDROmorphone HCL PF 2 MG/ML VIAL IV PUSH ONE (11:45)
[2017-02-13 12:19] VITALS: RESP 18
[2017-02-13 12:53] VITALS: BP 130/78
== END 2017-02-13 12:55 | disposition home or self-care (01) ==
LOC: PHED 09:14
DX: D57.00 Hb-SS disease with crisis, unspecified (principal); R07.9 Chest pain, unspecified; M54.5 Low back pain; I10 Essential (primary) hypertension; Z79.82 Long term (current) use of aspirin; Z86.2 Personal history of diseases of the blood and blood-forming organs and certain disorders involving the immune mechanism; Z86.79 Personal history of other diseases of the circulatory system; Z86.718 Personal history of other venous thrombosis and embolism; Z87.39 Personal history of other diseases of the musculoskeletal system and connective tissue; Z86.69 Personal history of other diseases of the nervous system and sense organs
CPT/HCPCS: 85007; 85027; 96361; 96374; 96375; 96376; 99285; J1170; J1200; J2405; J7030

== ENCOUNTER 2017-02-14 20:52 | Inpatient (IN) | payer OTHER, MEDICARE ==
[~2017-02-14] VITALS: Ht 165.1 cm; Wt 87.5 kg
[~2017-02-14 20:52] MED LIST changes: +AMOX500C PO
[2017-02-14 21:09] VITALS: BP 136/78; PULSE 117; RESP 18; TEMP 99.1; O2SAT 89
[2017-02-14] MEDS ORDERED: SODIUM CHLOR 0.9% 1000 ML INJ 1,000 ML IV ONE (21:35)
--- NOTE | 2017-02-14 21:38 | PD ---
HPI Chief Complaint: Sickle Cell Time Seen by Provider: 21:35 Travel History International Travel<30 days: No Contact w/Intl Traveler<30days: No Traveled to known affect area: No History of Present Illness HPI 36-year-old female patient with history of sickle cell disease, presents to the ER today with one-day history of 9 out of 10 chest discomfort, lower back pains , thinks she is having her sickle cell crisis. She denies any shortness of breath, coughing, fevers, or other symptoms. Symptoms worsen with movement. Modifying Factors: None Associated Signs & Symptoms: Chest discomfort, lower back pains, sickle cell crisis Risk Factors: History of sickle cell disease PFSH Past Medical History Hx Anticoagulant Therapy: Yes (ASA) Anemia: Yes (SICKLE CELL) Arthritis: No Asthma: No Autoimmune Disease: No Blood Disorders: Yes (SICKLE CELL) Anxiety: No Depression: No Heart Rhythm Problems: No Cancer: No Cardiovascular Problems: Yes (htn on meds) High Cholesterol: No Chemotherapy: No Chest Pain: No Congestive Heart Failure: No COPD: No Cerebrovascular Accident: No Diabetes: No Diminished Hearing: No Deep Vein Thrombosis: Yes (HX LEFT ARM ) Endocrine: No Gastrointestinal Disorders: No GERD: No Glaucoma: No Genitourinary: No Headaches: Yes Hepatitis: No Hiatal Hernia: No Heparin Induced Thrombocytopen: No Hypertension: Yes Immune Disorder: Yes (SICKLE CELL) Implanted Vascular Access Dvce: Yes (POWER INFUSAPORT) Kidney Stones: No Musculoskeletal: Yes (SCOLIOSIS) Neurologic: No Psychiatric: No Reproductive: No Respiratory: No Immunizations Current: Yes Migraines: Yes Pneumonia: Yes Radiation Therapy: No Renal Failure: No Seizures: No Sickle Cell Disease: Yes Sleep Apnea: No Thyroid Disease: No Ulcer: No PNEUMOCCOCAL Vaccine (Year): 2008 Menopausal: No : 5 Para: 2 Miscarriage: 3 : 0 Ovarian Cysts: Yes Past Surgical History Abdominal Surgery: Yes (CHOLECYSTECTOMY) AICD: No Appendectomy: Yes Arteriovenous Shunt: No Body Medical Devices: CATIA IN UPPER BACK Cardiac Surgery: No Cholecystectomy: Yes Ear Surgery: No Endocrine Surgery: No Eye Surgery: No Genitourinary Surgery: No Gynecologic Surgery: No Hysterectomy: No Insulin Pump: No Joint Replacement: Yes (R HIP REPLACEMENT 2011, L HIP 2014) Neurologic Surgery: No Oral Surgery: No Pacemaker: No Thoracic Surgery: No Other Surgery: Yes (INSERTION OF INFUSA PORTX 3) Social History Alcohol Use: Yes (occass. wine) Tobacco Use: No Substance Use: No Allergies-Medications (Allergen,Severity, Reaction): Coded Allergies: ketorolac (Unverified Allergy, Severe, Itching, 02/14/17) morphine (Unverified Allergy, Mild, Swelling, 02/14/17) ibuprofen (Unverified Adverse Reaction, Severe, Urinary Freq (Inc/Dec), ) RENAL FAILURE methadone (Unverified Adverse Reaction, Severe, DEPRESSION, 02/14/17) Reported Meds & Prescriptions Reported Meds & Active Scripts Active Reported Amoxicillin 500 Mg Cap 500 Mg PO TID Dilaudid (Hydromorphone HCl) 4 Mg Tab 4 Mg PO Q6H PRN Hydrea (Hydroxyurea) 500 Mg Cap 500 Mg PO TID Folic Acid 400 Mcg Tab 1 Mg PO DAILY Aspirin 81 Mg Chew 81 Mg CHEW DAILY Jadenu (Deferasirox) 90 Mg Tab DAILY Amlodipine (Amlodipine Besylate) 5 Mg Tab 5 Mg PO DAILY Review of Systems Except as stated in HPI: all other systems reviewed are Neg Physical Exam Narrative GENERAL: Well-developed young after [place] female patient currently in moderate distress. Awake and oriented 3. SKIN: Focused skin assessment warm/dry. HEAD: Atraumatic. Normocephalic. EYES: Pupils equal and round. No scleral icterus. No injection or drainage. ENT: No nasal bleeding or discharge. Mucous membranes pink and moist. NECK: Trachea midline. No JVD. CARDIOVASCULAR: Regular rate and rhythm. No murmur appreciated. RESPIRATORY: No accessory muscle use. Clear to auscultation. Breath sounds equal bilaterally. GASTROINTESTINAL: Abdomen soft, non-tender, nondistended. Hepatic and splenic margins not palpable. MUSCULOSKELETAL: No obvious deformities. No clubbing. No cyanosis. No edema. NEUROLOGICAL: Awake and alert. No obvious cranial nerve deficits. Motor grossly within normal limits. Normal speech. PSYCHIATRIC: Appropriate mood and affect; insight and judgment normal. Data Data Last Documented VS Vital Signs Date Time Temp Pulse Resp B/P (MAP) Pulse Ox O2 Delivery O2 Flow Rate FiO2 02/14/17 22:50 105 18 145/85 (105) 99 Nasal Cannula 2.00 02/14/17 21:09 99.1 Orders Orders C-Reactive Protein (Crp) (02/14/17 21:35) Complete Blood Count With Diff (02/14/17 21:35) Comprehensive Metabolic Panel (02/14/17 21:35) Retic Count (02/14/17 21:35) Urinalysis - C+S If Indicated (02/14/17 21:35) Blood Culture (02/14/17 21:35) Chest, Single Ap (02/14/17 21:35) Ecg Monitoring (02/14/17 21:35) Iv Access Insert/Monitor (02/14/17 21:35) Oximetry (02/14/17 21:35) Oxygen Administration (02/14/17 21:35) Hydromorphone Pf Inj (Dilaudid Pf Inj) (02/14/17 21:45) Ondansetron Inj (Zofran Inj) (02/14/17 21:45) Sodium Chloride 0.9% Flush (Ns Flush) (02/14/17 21:45) Sodium Chlor 0.9% 1000 Ml Inj (Ns 1000 M (02/14/17 21:35) Diphenhydramine Inj (Benadryl Inj) (02/14/17 21:45) Electrocardiogram (02/14/17 21:35) Labs Laboratory Tests Test 02/14/17 21:55 02/14/17 23:05 White Blood Count 16.8 TH/MM3 Red Blood Count 2.29 MIL/MM3 Hemoglobin 7.1 GM/DL Hematocrit 20.0 % Mean Corpuscular Volume 87.2 FL Mean Corpuscular Hemoglobin 30.8 PG Mean Corpuscular Hemoglobin Concent 35.3 % Red Cell Distribution Width 24.6 % Platelet Count 284 TH/MM3 Mean Platelet Volume 8.8 FL CBC Comment AUTO DIFF Differential Total Cells Counted 100 Neutrophils % (Manual) 33 % Band Neutrophils % 1 % Lymphocytes % 53 % Monocytes % 1 % Eosinophils % 8 % Basophils % 1 % Neutrophils # (Manual) 6.0 TH/MM3 Metamyelocytes 1 % Myelocytes 1 % Nucleated Red Blood Cells 2 /100 WBC Differential Comment FINAL DIFF MANUAL Atypical Lymphocytes % Plasma Cells 1 % Platelet Estimate NORMAL Platelet Morphology Comment GIANT Basophilic Stippling FAINT Sickle Cells 3+ Target Cells 1+ Ovalocytes 2+ Keratocytes 1+ Reticulocyte Count 8.8 % Absolute Reticulocyte Count 184.0 MIL/L Blood Urea Nitrogen 19 MG/DL Creatinine 1.20 MG/DL Random Glucose 102 MG/DL Total Protein 8.2 GM/DL Albumin 3.4 GM/DL Calcium Level 8.2 MG/DL Alkaline Phosphatase 127 U/L Aspartate Amino Transf (AST/SGOT) 54 U/L Alanine Aminotransferase (ALT/SGPT) 33 U/L Total Bilirubin 1.9 MG/DL Sodium Level 139 MEQ/L Potassium Level 4.1 MEQ/L Chloride Level 107 MEQ/L Carbon Dioxide Level 24.8 MEQ/L Anion Gap 7 MEQ/L Estimat Glomerular Filtration Rate 62 ML/MIN C-Reactive Protein 1.83 MG/DL [facility] Medical Decision Making Medical Screen Exam Complete: Yes Emergency Medical Condition: Yes Medical Record Reviewed: Yes Interpretation(s) EKG shows sinus tachycardia rate of 100 bpm with no signs of acute ST-T changes. Laboratory Tests Test 02/14/17 21:55 02/14/17 23:05 White Blood Count 16.8 TH/MM3 (4.0-11.0) Red Blood Count 2.29 MIL/MM3 (4.00-5.30) Hemoglobin 7.1 GM/DL (11.6-15.3) Hematocrit 20.0 % (35.0-46.0) Red Cell Distribution Width 24.6 % (11.6-17.2) Lymphocytes % 53 % (9-44) Eosinophils % 8 % (0-4) Myelocytes 1 % (0-0) Nucleated Red Blood Cells 2 /100 WBC (0-0) Plasma Cells 1 % (0-0) Platelet Morphology Comment GIANT (NORMAL) Basophilic Stippling FAINT (NORMAL) Sickle Cells 3+ (NORMAL) Target Cells 1+ (NORMAL) Ovalocytes 2+ (NORMAL) Keratocytes 1+ (NORMAL) Reticulocyte Count 8.8 % (0.4-3.0) Absolute Reticulocyte Count 184.0 MIL/L (20.0-150.0) Blood Urea Nitrogen 19 MG/DL (7-18) Creatinine 1.20 MG/DL (0.50-1.00) Calcium Level 8.2 MG/DL (8.5-10.1) Alkaline Phosphatase 127 U/L (45-117) Aspartate Amino Transf (AST/SGOT) 54 U/L (15-37) Total Bilirubin 1.9 MG/DL (0.2-1.0) Estimat Glomerular Filtration Rate 62 ML/MIN (>89) C-Reactive Protein 1.83 MG/DL (0.00-0.30) Last 24 hours Impressions Chest X-Ray 02/14/177 Signed Impressions: Service Date/Time: Tuesday, February 14, 2017 22:16 - CONCLUSION: No acute cardiopulmonary disease identified. Yusuf Baugh MD Differential Diagnosis Sickle cell crisis versus pneumonia versus symptomatic anemia versus acute chest syndrome Narrative Course Chest x-ray did not show any signs of acute pulmonary processes. Patient was given IV fluids, pain medications and Zofran and Benadryl in the ER. Lab work shows elevated reticulocyte count. She is anemic but appears to be baseline with hemoglobin of 7. At this point, plan would be to admit her for further treatment. Case was discussed with Dr. Moss for admission. Diagnosis Primary Impression: Sickle cell anemia with crisis Admitting Information Admitting Physician Requests: Admit Junior Becerra MD Feb 14, 2017 21:38
[2017-02-14] MEDS ORDERED: diphenhydrAMINE HCL 50 MG/ML VIAL IV PUSH ONE (21:45)
[2017-02-14] MEDS ORDERED: HYDROmorphone HCL PF 2 MG/ML VIAL IVS ONE (21:45)
[2017-02-14] MEDS ORDERED: ONDANSETRON HCL 4 MG/2 ML VIAL IVP ONE (21:45)
[2017-02-14] MEDS ORDERED: SODIUM CHLORIDE 0.9% FLUSH 10 ML FLUSH IVF PRN (21:45)
[2017-02-14 22:04] VITALS: O2SAT 98
[2017-02-14 22:10] LABS: MEAN CELL VOLUME 87.2 FL (80.0-100.0); MEAN CORPUSCULAR HEMOGLOBIN 30.8 PG (27.0-34.0); MEAN CORPUSCULAR HGB CONC 35.3 % (32.0-36.0); PLATELET COUNT 284 TH/MM3 (150-450); RED BLOOD COUNT 2.29 MIL/MM3 (4.00-5.30); RED CELL DISTRIBUTION WIDTH 24.6 % (11.6-17.2); WHITE BLOOD COUNT 16.8 TH/MM3 (4.0-11.0)
[2017-02-14 22:19] LABS: CHLORIDE 107 MEQ/L (98-107); HEMO FLAGS AUTO DIFF; POTASSIUM 4.1 MEQ/L (3.5-5.1); SODIUM (NA) 139 MEQ/L (136-145)
[2017-02-14 22:23] LABS: ANION GAP 7 MEQ/L (5-15); BICARBONATE 24.8 MEQ/L (21.0-32.0); BLOOD UREA NITROGEN 19 MG/DL (7-18)
[2017-02-14 22:26] LABS: ALT (GPT) 33 U/L (10-53); AST (GOT) 54 U/L (15-37); GLOMERULAR FILTRATION RATE 62 ML/MIN (>89)
[2017-02-14 22:28] LABS: TOTAL BILIRUBIN ADULT 1.9 MG/DL (0.2-1.0)
[2017-02-14 22:29] LABS: ALKALINE PHOSPHATASE 127 U/L (45-117)
--- NOTE | 2017-02-14 22:35 | RADRPT ---
EXAM DATE/TIME: 02/14/2017 22:16 [facility] COMPARISON: CHEST SINGLE AP, October 11, 2016, 11:15. INDICATIONS : Shortness of breath. MEDICAL HISTORY : Sickle Cell disease. SURGICAL HISTORY : Spinal. Infusaport. ENCOUNTER: Initial ACUITY: 1 day PAIN SCORE: 0/10 LOCATION: Bilateral chest FINDINGS: Single AP view of the chest. Right-sided [id number] in place. Right-sided thoracic spine hardware noted. The lungs are clear. Cardiomediastinal silhouette within normal limits. No evidence of pleural effusion or pneumothorax. CONCLUSION: No acute cardiopulmonary disease identified. Yusuf Baugh MD on February 14, 2017 at 22:33 Board Certified Radiologist. This report was verified electronically.
[2017-02-14 22:42] LABS: BANDS 1 % (0-6); BASOPHILS 1 % (0-2); CORRECTED NUCLEATED RBC 2 /100 WBC (0-0); EOSINOPHILS 8 % (0-4); KERATOCYTES 1+ (NORMAL); METAMYELOCYTES 1 % (0-1); MYELOCYTES 1 % (0-0); OVALOCYTES 2+ (NORMAL); PLASMA CELLS 1 % (0-0); POLYS (SEG NEUTROPHILS) 33 % (16-70); SICKLE CELLS 3+ (NORMAL); WBC DIFF SAMPLE 100
[2017-02-14 22:43] LABS: PLATELET ESTIMATE SMEAR NORMAL (NORMAL); PLATELET MORPHOLOGY GIANT (NORMAL); SCAN/DIFF FINAL DIFF MANUAL; TARGET CELLS 1+ (NORMAL)
[2017-02-14 22:50] VITALS: BP 145/85; PULSE 105; RESP 18; O2SAT 99
[2017-02-14 22:58] LABS: RETIC % 8.8 % (0.4-3.0)
[2017-02-14 22:59] LABS: REVIEW FLAG FINAL
[2017-02-14 23:24] LABS: BLOOD, URINE MOD (NEG); GLUCOSE,URINE NEG (NEG); KETONE, URINE NEG (NEG); NITRITE,URINE NEG (NEG)
[2017-02-14 23:28] LABS: URINE COLOR YELLOW (YELLW/STRAW)
[2017-02-14 23:29] LABS: RBC, URINE 0-3 /hpf (0-3); SQUAMOUS EPITHELIAL CELL URINE 0-5 /hpf (0-5)
[2017-02-14 23:30] LABS: COMMENT (UR) CULT NOT INDICATED; CULTURE IF INDICATED CULT NOT INDICATED
[2017-02-14] MEDS ORDERED: SODIUM CHLORIDE 0.9% FLUSH 10 ML FLUSH IV FLUSH PRN (23:30)
[2017-02-14] MEDS ORDERED: BISACODYL 10 MG SUPP RECTAL PRN (23:30)
[2017-02-14] MEDS ORDERED: MAGNESIUM HYDROXIDE SUSP 30 ML CUP PO PRN (23:30)
[2017-02-14] MEDS ORDERED: ACETAMINOPHEN 325 MG TAB PO PRN (23:30)
[2017-02-14] MEDS ORDERED: SENNOSIDES 8.6 MG TAB PO PRN (23:30)
[2017-02-14] MEDS ORDERED: RESP: ALBUTEROL 2.5 MG/IPRATROPIUM 0.5 MG NEB (PRN) NEB (23:30)
[2017-02-14] MEDS ORDERED: LACTULOSE SYRUP 20 GM/30 ML CUP PO PRN (23:30)
[2017-02-14] MEDS ORDERED: HYDROmorphone HCL PF 0.5 MG/0.5 ML SYRINGE IV PRN (23:45)
[2017-02-15] VITALS (13 sets, daily range): BP systolic 102–138; BP diastolic 58–88; PULSE 77–110; RESP 16–18; TEMP 96.8–98.6; O2SAT 93–100
[2017-02-15] MEDS: HYDROmorphone HCL PF 2 MG/ML VIAL IV PRN ×8 (00:31→23:31)
[2017-02-15] MEDS: SODIUM CHLOR 0.9% 1000 ML INJ 1,000 ML IV SCH ×4 (00:34→21:34)
[2017-02-15] MEDS: diphenhydrAMINE HCL 50 MG/ML VIAL IV PUSH PRN ×4 (01:24→13:30)
[2017-02-15] MEDS: ONDANSETRON HCL 4 MG/2 ML VIAL IVP PRN ×3 (01:25→16:56)
[2017-02-15 06:01] LABS: MEAN CELL VOLUME 87.6 FL (80.0-100.0); MEAN CORPUSCULAR HEMOGLOBIN 30.4 PG (27.0-34.0); MEAN CORPUSCULAR HGB CONC 34.7 % (32.0-36.0); PLATELET COUNT 272 TH/MM3 (150-450); RED BLOOD COUNT 2.05 MIL/MM3 (4.00-5.30); WHITE BLOOD COUNT 15.8 TH/MM3 (4.0-11.0)
[2017-02-15 06:06] LABS: HEMO FLAGS AUTO DIFF
[2017-02-15 06:09] LABS: CHLORIDE 109 MEQ/L (98-107); POTASSIUM 4.1 MEQ/L (3.5-5.1); SODIUM (NA) 140 MEQ/L (136-145)
[2017-02-15 06:15] LABS: ANION GAP 6 MEQ/L (5-15); BICARBONATE 25.4 MEQ/L (21.0-32.0); BLOOD UREA NITROGEN 16 MG/DL (7-18)
[2017-02-15 06:18] LABS: ALT (GPT) 28 U/L (10-53); AST (GOT) 46 U/L (15-37); GLOMERULAR FILTRATION RATE 77 ML/MIN (>89)
[2017-02-15 06:19] LABS: TOTAL BILIRUBIN ADULT 1.3 MG/DL (0.2-1.0)
[2017-02-15 06:21] LABS: ALKALINE PHOSPHATASE 115 U/L (45-117)
[2017-02-15] MEDS ORDERED: diphenhydrAMINE HCL 25 MG CAP PO PRN (06:30)
[2017-02-15] MEDS ORDERED: SODIUM CHLOR 0.9% 250 ML INJ 250 ML IV ONE (06:30)
[2017-02-15] MEDS ORDERED: ACETAMINOPHEN 325 MG TAB PO PRN (06:30)
[2017-02-15 06:55] LABS: BANDS 4 % (0-6); CORRECTED NUCLEATED RBC 2 /100 WBC (0-0); EOSINOPHILS 5 % (0-4); METAMYELOCYTES 1 % (0-1); NEUTROPHIL # MANUAL DIFF 7.4 TH/MM3 (1.8-7.7); POLYS (SEG NEUTROPHILS) 42 % (16-70); WBC DIFF SAMPLE 100
[2017-02-15 06:56] LABS: KERATOCYTES 1+ (NORMAL); TARGET CELLS 1+ (NORMAL)
[2017-02-15 06:57] LABS: OVALOCYTES 1+ (NORMAL); PLATELET ESTIMATE SMEAR NORMAL (NORMAL); PLATELET MORPHOLOGY NORMAL (NORMAL); ROULEAUX PRESENT (NORMAL); SCAN/DIFF FINAL DIFF MANUAL; SICKLE CELLS 3+ (NORMAL)
[2017-02-15] MEDS: DOCUSATE SODIUM 50 MG/SENNA 8.6 MG TAB PO SCH ×2 (08:01→21:34)
[2017-02-15] MEDS: FOLIC ACID 1 MG TAB PO SCH (08:01)
[2017-02-15] MEDS: amLODIPine BESYLATE 5 MG TAB PO SCH (08:01)
[2017-02-15] MEDS: ASPIRIN 81 MG CHEW TAB CHEW SCH (08:01)
[2017-02-15] MEDS: SODIUM CHLORIDE 0.9% FLUSH 10 ML FLUSH IV FLUSH SCH ×2 (08:02→19:53)
[2017-02-15] MEDS: HYDROXYUREA 500 MG CAP PO SCH ×3 (08:13→17:01)
--- NOTE | 2017-02-15 09:18 | HHI.HP ---
[facility] Primary [facility] Physician No Primary Care Physician Admission Diagnosis sickle cell crisis Diagnoses: (1) Vaso-occlusive sickle cell crisis (2) Sickle cell anemia with crisis Chief Complaint: Lower back and chest pain Travel History International Travel<30 Days: No Contact w/Intl Traveler <30 Da: No Traveled to Known Affected Are: No History of Present Illness 36-year-old female with a history of sickle cell disease presented to the ED for evaluation of worsening low back and chest pain rated 9/ 10 in intensity without any improvement with prescribed narcotics. Patient denies any inciting events. Stated that over the past several days she's been having pain over the worse around 6 yesterday morning. She denies any other symptoms. Review of Systems Except as stated in HPI: all other systems reviewed are Neg Past Family Social History Past Medical History Sickle cell disease History of avascular necrosis chronic kidney disease due to blood transfusion iron overload History of DVT left arm scoliosis migraines because of medications. Past Surgical History Right total hip replacement 2011 Left hip replacement 2014 cholecystectomy 2002 back surgery at age 15 (joey placed) [id number] R chest Reported Medications Amoxicillin 500 Mg Cap 500 Mg PO TID Dilaudid (Hydromorphone HCl) 4 Mg Tab 4 Mg PO Q6H PRN Hydrea (Hydroxyurea) 500 Mg Cap 500 Mg PO TID Folic Acid 400 Mcg Tab 1 Mg PO DAILY Aspirin 81 Mg Chew 81 Mg CHEW DAILY Jadenu (Deferasirox) 90 Mg Tab DAILY Amlodipine (Amlodipine Besylate) 5 Mg Tab 5 Mg PO DAILY Allergies: Coded Allergies: ketorolac (Unverified Allergy, Severe, Itching, 02/14/17) morphine (Unverified Allergy, Mild, Swelling, 02/14/17) ibuprofen (Unverified Adverse Reaction, Severe, Urinary Freq (Inc/Dec), ) RENAL FAILURE methadone (Unverified Adverse Reaction, Severe, DEPRESSION, 02/14/17) Family History mother having hypertension and sickle cell, father with diabetes hypertension and sickle cell Social History Denies smoking, illicit drug use, and drinking Physical Exam Vital Signs Vital Signs Date Time Temp Pulse Resp B/P (MAP) Pulse Ox O2 Delivery O2 Flow Rate FiO2 02/15/17 08:00 98.6 105 16 119/84 (96) 93 02/15/17 07:51 98 Nasal Cannula 2.00 02/15/17 04:00 98.5 79 17 138/82 (100) 98 02/15/17 02:41 98 Nasal Cannula 3.00 02/15/17 01:56 100 02/15/17 00:02 02/15/17 00:01 105 18 138/79 (98) 98 Room Air 2.00 02/14/17 22:50 105 18 145/85 (105) 99 Nasal Cannula 2.00 02/14/17 22:25 Nasal Cannula 2.00 02/14/17 22:04 98 Nasal Cannula 2.00 02/14/17 21:37 Nasal Cannula 2.00 02/14/17 21:09 99.1 117 18 136/78 (97) 89 Physical Exam GENERAL: This is a well-nourished, well-developed patient, in no apparent distress. SKIN: No rashes, ecchymoses or lesions. Cool and dry. HEAD: Atraumatic. Normocephalic. No temporal or scalp tenderness. EYES: Pupils equal round and reactive. Extraocular motions intact. No scleral icterus. No injection or drainage. ENT: Nose without bleeding, purulent drainage or septal hematoma. Throat without erythema, tonsillar hypertrophy or exudate. Uvula midline. Airway patent. NECK: Trachea midline. No JVD or lymphadenopathy. Supple, nontender, no meningeal signs. CARDIOVASCULAR: Regular rate and rhythm without murmurs, gallops, or rubs. RESPIRATORY: Clear to auscultation. Breath sounds equal bilaterally. No wheezes , rales, or rhonchi. GASTROINTESTINAL: Abdomen soft, non-tender, nondistended. No hepato-splenomegaly , or palpable masses. No guarding. MUSCULOSKELETAL: Extremities without clubbing, cyanosis, or edema. No joint tenderness, effusion, or edema noted. No calf tenderness. Negative Homans sign bilaterally. NEUROLOGICAL: Awake and alert. Cranial nerves II through XII intact. Motor and sensory grossly within normal limits. Five out of 5 muscle strength in all muscle groups. Normal speech. Laboratory Laboratory Tests Test 02/14/17 21:55 02/14/17 23:05 02/15/17 05:40 White Blood Count 16.8 15.8 Red Blood Count 2.29 2.05 Hemoglobin 7.1 6.2 Hematocrit 20.0 18.0 Mean Corpuscular Volume 87.2 87.6 Mean Corpuscular Hemoglobin 30.8 30.4 Mean Corpuscular Hemoglobin Concent 35.3 34.7 Red Cell Distribution Width 24.6 25.0 Platelet Count 284 272 Mean Platelet Volume 8.8 8.8 CBC Comment AUTO DIFF AUTO DIFF Differential Total Cells Counted 100 100 Neutrophils % (Manual) 33 42 Band Neutrophils % 1 4 Lymphocytes % 53 45 Monocytes % 1 3 Eosinophils % 8 5 Basophils % 1 Neutrophils # (Manual) 6.0 7.4 Metamyelocytes 1 1 Myelocytes 1 Nucleated Red Blood Cells 2 2 Differential Comment FINAL DIFF MANUAL FINAL DIFF MANUAL Atypical Lymphocytes Plasma Cells 1 Platelet Estimate NORMAL NORMAL Platelet Morphology Comment GIANT NORMAL Basophilic Stippling [place] Sickle Cells 3+ 3+ Target Cells 1+ 1+ Ovalocytes 2+ 1+ Keratocytes 1+ 1+ Reticulocyte Count 8.8 Absolute Reticulocyte Count 184.0 Blood Urea Nitrogen 19 16 Creatinine 1.20 1.00 Random Glucose 102 95 Total Protein 8.2 7.4 Albumin 3.4 3.1 Calcium Level 8.2 7.9 Alkaline Phosphatase 127 115 Aspartate Amino Transf (AST/SGOT) 54 46 Alanine Aminotransferase (ALT/SGPT) 33 28 Total Bilirubin 1.9 1.3 Sodium Level 139 140 Potassium Level 4.1 4.1 Chloride Level 107 109 Carbon Dioxide Level 24.8 25.4 Anion Gap 7 6 Estimat Glomerular Filtration Rate 62 77 C-Reactive Protein 1.83 Urine Color YELLOW Urine Turbidity HAZY Urine pH 6.0 Urine Specific [place] 1.011 Urine Protein 30 Urine Glucose (UA) NEG Urine Ketones NEG Urine Occult Blood MOD Urine Nitrite NEG Urine Bilirubin NEG Urine Leukocyte Esterase TRACE Urine RBC 0-3 Urine WBC 3-5 Urine Squamous Epithelial Cells 0-5 Microscopic Urinalysis Comment CULT NOT INDICATED [place] PRESENT Date/Time Source Procedure Growth Status 02/14/17 21:55 Blood Peripheral Aerobic Blood Culture Pending Received 02/14/17 21:55 Blood Peripheral Anaerobic Blood Culture Pending Received Result Diagram: 02/15/1740 02/15/1740 Imaging Last Impressions Chest X-Ray 02/14/172134 Signed Impressions: Service Date/Time: Tuesday, February 14, 2017 22:16 - CONCLUSION: No acute cardiopulmonary disease identified. Yusuf Baugh MD Caprinvíctor VTE Risk Assessment Caprini VTE Risk Assessment: No/Low Risk (score <= 1) Caprini Risk Assessment Model Point Value = 1 Point Value = 2 Point Value = 3 Point Value = 5 Age 41-60 Minor surgery BMI > 25 kg/m2 Swollen legs Varicose veins or History of unexplained or recurrent spontaneous Oral contraceptives or hormone replacement Sepsis (< 1 month) Serious lung disease, including pneumonia (< 1 month) Abnormal pulmonary function Acute myocardial infarction Congestive heart failure (< 1 month) History of inflammatory bowel disease Medical patient at bed rest Age 61-74 Arthroscopic surgery Major open surgery (> 45 min) Laparoscopic surgery (> 45 min) Malignancy Confined to bed (> 72 hours) Immobilizing plaster cast Central venous access Age >= 75 History of VTE Family history of VTE Factor V Leiden Prothrombin [id number] Lupus anticoagulant Anticardiolipin antibodies Elevated serum homocysteine Heparin-induced thrombocytopenia Other congenital or acquired thrombophilia Stroke (< 1 month) Elective arthroplasty Hip, pelvis, or leg fracture Acute spinal cord injury (< 1 month) Prophylaxis Regimen Total Risk Factor Score Risk Level Prophylaxis Regimen 0-1 Low Early ambulation 2 Moderate Order ONE of the following: *Sequential Compression Device (SCD) *Heparin 5000 units SQ BID 3-4 Higher Order ONE of the following medications: *Heparin 5000 units SQ TID *Enoxaparin/Lovenox 40 mg SQ daily (WT < 150 kg, CrCl > 30 mL/min) *Enoxaparin/Lovenox 30 mg SQ daily (WT < 150 kg, CrCl > 10-29 mL/min) *Enoxaparin/Lovenox 30 mg SQ BID (WT < 150 kg, CrCl > 30 mL/min) AND/OR *Sequential Compression Device (SCD) 5 or more Highest Order ONE of the following medications: *Heparin 5000 units SQ TID (Preferred with Epidurals) *Enoxaparin/Lovenox 40 mg SQ daily (WT < 150 kg, CrCl > 30 mL/min) *Enoxaparin/Lovenox 30 mg SQ daily (WT < 150 kg, CrCl > 10-29 mL/min) *Enoxaparin/Lovenox 30 mg SQ BID (WT < 150 kg, CrCl > 30 mL/min) AND *Sequential Compression Device (SCD) Assessment and Plan Problem List: (1) Vaso-occlusive sickle cell crisis ICD Code: D57.00 - Hb-SS disease with crisis, unspecified Status: Acute (2) Sickle cell anemia with crisis ICD Code: D57.00 - Hb-SS disease with crisis Status: Acute Assessment and Plan 36-year-old female with Vaso-occlusive sickle cell crisis Start aggressive IV fluid hydration, parenteral pain management with IV Dilaudid and when necessary LDH and reticulocyte count in 3 days Resume Hydrea and hold Jadenu [place] hematology consultation if no improvement Sickle cell anemia with crisis Will transfuse 1 unit packed red blood cell Monitor H&H Hypertension Currently normotensive on Norvasc 10 mg daily [place] Resume amoxicillin DVT prophylaxis Lovenox Code Status Full code Discussed Condition With Patient Physician Certification 2 Midnight Certification Type: Admission for Inpatient Services Order for Inpatient Services The services are ordered in accordance with Medicare regulations or non- Medicare payer requirements, as applicable. In the case of services not specified as inpatient-only, they are appropriately provided as inpatient services in accordance with the 2-midnight benchmark. Estimated LOS (days): 2 days is the estimated time the patient will need to remain in the hospital, assuming treatment plan goals are met and no additional complications. Post-Hospital Plan: Not yet determined Gen Mckeon MD Feb 15, 2017 09:18
[2017-02-15] MEDS: AMOXICILLIN (TRIHYDRATE) 500 MG CAP PO SCH ×2 (12:47→16:56)
--- NOTE | 2017-02-15 16:12 | EKG ---
Date Performed: 02/14/2017 Time Performed: 21:58:42 PTAGE: 36 years EKG: SINUS TACHYCARDIA Compared to prior tracing no significant change ABNORMAL RHYTHM ECG PREVIOUS TRACING : 08/02/2016 12.20 DOCTOR: Pelon Hogan Interpretating Date/Time 02/15/2017 16:10:59
[2017-02-16] VITALS (8 sets, daily range): BP systolic 110–130; BP diastolic 68–90; PULSE 90–104; RESP 16–20; TEMP 97.5–98.7; O2SAT 93–100
[2017-02-16] MEDS: HYDROmorphone HCL PF 2 MG/ML VIAL IV PRN ×6 (02:41→23:45)
[2017-02-16] MEDS: SODIUM CHLOR 0.9% 1000 ML INJ 1,000 ML IV SCH ×4 (03:50→21:31)
[2017-02-16] MEDS: diphenhydrAMINE HCL 50 MG/ML VIAL IV PUSH PRN ×4 (08:47→21:28)
[2017-02-16] MEDS: ONDANSETRON HCL 4 MG/2 ML VIAL IVP PRN ×3 (08:47→23:47)
[2017-02-16] MEDS: ASPIRIN 81 MG CHEW TAB CHEW SCH (08:47)
[2017-02-16] MEDS: FOLIC ACID 1 MG TAB PO SCH (08:48)
[2017-02-16] MEDS: DOCUSATE SODIUM 50 MG/SENNA 8.6 MG TAB PO SCH ×2 (08:48→21:27)
[2017-02-16] MEDS: AMOXICILLIN (TRIHYDRATE) 500 MG CAP PO SCH ×3 (08:48→18:05)
[2017-02-16] MEDS: amLODIPine BESYLATE 5 MG TAB PO SCH (08:48)
[2017-02-16] MEDS: HYDROXYUREA 500 MG CAP PO SCH ×3 (09:45→18:13)
[2017-02-16] MEDS: SODIUM CHLORIDE 0.9% FLUSH 10 ML FLUSH IV FLUSH SCH ×2 (09:46→21:28)
[2017-02-16] MEDS ORDERED: ALTEPLASE RECOMBINANT 2 MG VIAL INTRACATH ONE (10:15)
--- NOTE | 2017-02-16 10:30 | HHI.PR ---
Subjective Remarks Follow-up sickle cell crisis/sickle cell anemia 02/16/17 -Patient seen and examined; reports low back and anterior chest pain down to 5/10 in intensity. She was transfused 1 unit packed red blood cell Objective Vitals Vital Signs Date Time Temp Pulse Resp B/P (MAP) Pulse Ox O2 Delivery O2 Flow Rate FiO2 02/16/17 09:17 18 02/16/17 07:55 98.6 90 20 130/90 (103) 96 02/16/17 07:46 100 Nasal Cannula 2.00 02/16/17 00:00 97.9 97 16 110/68 (82) 97 02/15/17 20:00 97.6 100 16 106/58 (74) 96 02/15/17 19:50 Nasal Cannula 2.00 02/15/17 16:19 97.8 90 16 117/72 100 02/15/17 16:00 98.6 77 16 113/88 (96) 98 02/15/17 14:15 97.8 92 16 102/72 96 02/15/17 13:10 97.2 92 16 115/71 96 02/15/17 12:00 96.8 110 16 127/86 (100) 95 I/O 02/15/17 02/15/17 02/15/17 02/16/17 02/16/17 02/16/17 07:00 15:00 23:00 07:00 15:00 23:00 Intake Total 1805 ml 2020 ml 2935 ml 3880 ml 1250 ml Balance 1805 ml 2020 ml 2935 ml 3880 ml 1250 ml Intake Oral 1200 ml 580 ml IV Total 1805 ml 2000 ml 1000 ml 3300 ml 1250 ml Packed Cells 675 ml Blood Product IV Normal Saline Flush 20 ml 60 ml # Voids 2 5 3 # Bowel Movements 0 Result Diagram: 02/15/1740 02/15/1740 Imaging Last Impressions Chest X-Ray 02/14/172134 Signed Impressions: Service Date/Time: Tuesday, February 14, 2017 22:16 - CONCLUSION: No acute cardiopulmonary disease identified. Yusuf Baugh MD Objective Remarks GENERAL: NAD SKIN: Warm and dry. HEAD: Normocephalic. EYES: No scleral icterus. No injection or drainage. NECK: Supple, trachea midline. No JVD or lymphadenopathy. CARDIOVASCULAR: Regular rate and rhythm without murmurs, gallops, or rubs. RESPIRATORY: Breath sounds equal bilaterally. No accessory muscle use. GASTROINTESTINAL: Abdomen soft, non-tender, nondistended. MUSCULOSKELETAL: No cyanosis, or edema. BACK: Nontender without obvious deformity. No CVA tenderness. A/P Problem List: (1) Vaso-occlusive sickle cell crisis ICD Code: D57.00 - Hb-SS disease with crisis, unspecified Status: Acute (2) Sickle cell anemia with crisis ICD Code: D57.00 - Hb-SS disease with crisis Status: Acute Assessment and Plan 36-year-old female with Vaso-occlusive sickle cell crisis Improving Continue aggressive IV fluid hydration, parenteral pain management with IV Dilaudid and when necessary Continue Hydrea and hold Jadenu Consider hematology consultation if no improvement Sickle cell anemia with crisis Transfused 1 unit packed red blood cell, 02/15/17 Monitor H&H. CBC pending this morning Hypertension Currently normotensive on Norvasc 10 mg daily [place] Continue amoxicillin DVT prophylaxis Lovenox/B-SCD Discharge Planning Likely discharge within next 24 hours Gen Mckeon MD Feb 16, 2017 10:30
[2017-02-16 10:43] LABS: AUTOMATED NEUTROPHIL # 8.4 TH/MM3 (1.8-7.7); BASOPHIL # 0.5 TH/MM3 (0-0.2); BASOPHIL % 3.3 % (0.0-2.0); EOSINOPHIL # 1.2 TH/MM3 (0-0.4); EOSINOPHIL % 7.5 % (0.0-4.0); LYMPHOCYTE # 4.4 TH/MM3 (1.0-4.8); MEAN CELL VOLUME 86.6 FL (80.0-100.0); MEAN CORPUSCULAR HEMOGLOBIN 28.6 PG (27.0-34.0); MEAN CORPUSCULAR HGB CONC 33.1 % (32.0-36.0); MONO % 7.2 % (0.0-8.0); PLATELET COUNT 319 TH/MM3 (150-450); RED BLOOD COUNT 2.89 MIL/MM3 (4.00-5.30); RED CELL DISTRIBUTION WIDTH 26.1 % (11.6-17.2); WHITE BLOOD COUNT 15.6 TH/MM3 (4.0-11.0)
[2017-02-16 10:45] LABS: HEMO FLAGS AUTO DIFF
[2017-02-16 11:11] LABS: BANDS 1 % (0-6); CORRECTED NUCLEATED RBC 6 /100 WBC (0-0); CORRECTED WBC 14.7 TH/MM3 (4.0-11.0); EOSINOPHILS 8 % (0-4); METAMYELOCYTES 2 % (0-1); MYELOCYTES 1 % (0-0); NEUTROPHIL # MANUAL DIFF 9.8 TH/MM3 (1.8-7.7); POLYS (SEG NEUTROPHILS) 63 % (16-70); TARGET CELLS 1+ (NORMAL); WBC DIFF SAMPLE 100
[2017-02-16 11:12] LABS: KERATOCYTES 1+ (NORMAL); OVALOCYTES 1+ (NORMAL); SICKLE CELLS 3+ (NORMAL)
[2017-02-16 11:13] LABS: PLATELET ESTIMATE SMEAR NORMAL (NORMAL); PLATELET MORPHOLOGY NORMAL (NORMAL); SCAN/DIFF FINAL DIFF MANUAL
[2017-02-17] VITALS: BP 139/95; PULSE 96; RESP 20; TEMP 97.9; O2SAT 96
[2017-02-17] MEDS: diphenhydrAMINE HCL 50 MG/ML VIAL IV PUSH PRN (04:06)
[2017-02-17] MEDS: HYDROmorphone HCL PF 2 MG/ML VIAL IV PRN ×3 (04:08→10:57)
[2017-02-17] MEDS: SODIUM CHLOR 0.9% 1000 ML INJ 1,000 ML IV SCH ×2 (06:14→08:24)
[2017-02-17 07:56] VITALS: BP 140/99; PULSE 100; RESP 18; TEMP 97.7; O2SAT 94
[2017-02-17] MEDS: amLODIPine BESYLATE 5 MG TAB PO SCH (07:58)
[2017-02-17] MEDS: DOCUSATE SODIUM 50 MG/SENNA 8.6 MG TAB PO SCH (07:59)
[2017-02-17] MEDS: ASPIRIN 81 MG CHEW TAB CHEW SCH (07:59)
[2017-02-17] MEDS: SODIUM CHLORIDE 0.9% FLUSH 10 ML FLUSH IV FLUSH SCH (07:59)
[2017-02-17] MEDS: AMOXICILLIN (TRIHYDRATE) 500 MG CAP PO SCH (07:59)
[2017-02-17] MEDS: FOLIC ACID 1 MG TAB PO SCH (07:59)
[2017-02-17] MEDS: HYDROXYUREA 500 MG CAP PO SCH (08:02)
--- NOTE | 2017-02-17 09:30 | HHI.PR ---
Subjective Remarks Follow-up sickle cell crisis/sickle cell anemia 02/16/17 -Patient seen and examined; reports low back and anterior chest pain down to 5/10 in intensity. She was transfused 1 unit packed red blood cell 02/17/17-at bedtime and examined, reports significant improvement of pain and down 0/10 in intensity and states she would like to go home Objective Vitals Vital Signs Date Time Temp Pulse Resp B/P (MAP) Pulse Ox O2 Delivery O2 Flow Rate FiO2 02/17/17 07:56 97.7 100 18 140/99 (113) 94 02/17/17 00:00 97.9 96 20 139/95 (110) 96 02/16/17 20:00 97.7 91 20 117/78 (91) 93 02/16/17 19:15 97 Nasal Cannula 2.00 02/16/17 16:55 18 02/16/17 16:00 97.5 104 20 127/87 (100) 98 02/16/17 15:52 97.5 104 20 127/87 (100) 98 02/16/17 11:46 98.7 95 20 127/78 (94) 98 I/O 02/16/17 02/16/17 02/16/17 02/17/17 02/17/17 02/17/17 07:00 15:00 23:00 07:00 15:00 23:00 Intake Total 3880 ml 1610 ml 1540 ml 2400 ml Balance 3880 ml 1610 ml 1540 ml 2400 ml Intake Oral 580 ml 360 ml 540 ml 0 ml IV Total 3300 ml 1250 ml 1000 ml 2400 ml # Voids 3 2 4 3 # Bowel Movements 0 1 Result Diagram: 02/16/17 1040 02/15/17 0540 Imaging Last Impressions Chest X-Ray 02/14/175 Signed Impressions: Service Date/Time: Tuesday, February 14, 2017 22:16 - CONCLUSION: No acute cardiopulmonary disease identified. Yusuf Baugh MD Objective Remarks GENERAL: NAD SKIN: Warm and dry. HEAD: Normocephalic. EYES: No scleral icterus. No injection or drainage. NECK: Supple, trachea midline. No JVD or lymphadenopathy. CARDIOVASCULAR: Regular rate and rhythm without murmurs, gallops, or rubs. RESPIRATORY: Breath sounds equal bilaterally. No accessory muscle use. GASTROINTESTINAL: Abdomen soft, non-tender, nondistended. MUSCULOSKELETAL: No cyanosis, or edema. BACK: Nontender without obvious deformity. No CVA tenderness. Procedures none A/P Problem List: (1) Vaso-occlusive sickle cell crisis ICD Code: D57.00 - Hb-SS disease with crisis, unspecified Status: Acute (2) Sickle cell anemia with crisis ICD Code: D57.00 - Hb-SS disease with crisis Status: Acute Assessment and Plan 36-year-old female with Vaso-occlusive sickle cell crisis Improved Continue aggressive IV fluid hydration, parenteral pain management with IV Dilaudid and when necessary Continue Hydrea and hold Jadenu Sickle cell anemia with crisis Transfused 1 unit packed red blood cell, 02/15/17 Monitor H&H. Hypertension Currently normotensive on Norvasc 10 mg daily [place] Continue amoxicillin DVT prophylaxis Lovenox/B-SCD Discharge Planning Discharge home Gen Mckeon MD Feb 17, 2017 09:30
--- NOTE | 2017-02-17 09:35 | HHI.DS ---
Discharge Summary Admission Date Feb 14, 2017 at 23:24 Discharge Date: Feb 17, 2017 Admitting Diagnosis sickle cell crisis (1) Vaso-occlusive sickle cell crisis ICD Code: D57.00 - Hb-SS disease with crisis, unspecified Status: Acute (2) Sickle cell anemia with crisis ICD Code: D57.00 - Hb-SS disease with crisis Status: Acute Procedures none Brief History - From Admission 36-year-old female with a history of sickle cell disease presented to the ED for evaluation of worsening low back and chest pain rated 9/ 10 in intensity without any improvement with prescribed narcotics. Patient denies any inciting events. Stated that over the past several days she's been having pain over the worse around 6 yesterday morning. She denies any other symptoms. CBC/BMP: 02/16/17 1040 02/15/17 0540 Significant Findings Laboratory Tests Test 02/14/17 21:55 02/14/17 23:05 02/15/17 05:40 02/16/17 10:40 White Blood Count 16.8 TH/MM3 (4.0-11.0) 15.8 TH/MM3 (4.0-11.0) 15.6 TH/MM3 (4.0-11.0) Red Blood Count 2.29 MIL/MM3 (4.00-5.30) 2.05 MIL/MM3 (4.00-5.30) 2.89 MIL/MM3 (4.00-5.30) Hemoglobin 7.1 GM/DL (11.6-15.3) 6.2 GM/DL (11.6-15.3) 8.3 GM/DL (11.6-15.3) Hematocrit 20.0 % (35.0-46.0) 18.0 % (35.0-46.0) 25.0 % (35.0-46.0) Red Cell Distribution Width 24.6 % (11.6-17.2) 25.0 % (11.6-17.2) 26.1 % (11.6-17.2) Lymphocytes % 53 % (9-44) 45 % (9-44) Eosinophils % 8 % (0-4) 5 % (0-4) 8 % (0-4) Myelocytes 1 % (0-0) 1 % (0-0) Nucleated Red Blood Cells 2 /100 WBC (0-0) 2 /100 WBC (0-0) 6 /100 WBC (0-0) Plasma Cells 1 % (0-0) Platelet Morphology Comment GIANT (NORMAL) Basophilic Stippling FAINT (NORMAL) FAINT (NORMAL) Sickle Cells 3+ (NORMAL) 3+ (NORMAL) 3+ (NORMAL) Target Cells 1+ (NORMAL) 1+ (NORMAL) 1+ (NORMAL) Ovalocytes 2+ (NORMAL) 1+ (NORMAL) 1+ (NORMAL) Keratocytes 1+ (NORMAL) 1+ (NORMAL) 1+ (NORMAL) Reticulocyte Count 8.8 % (0.4-3.0) Absolute Reticulocyte Count 184.0 MIL/L (20.0-150.0) Blood Urea Nitrogen 19 MG/DL (7-18) Creatinine 1.20 MG/DL (0.50-1.00) Calcium Level 8.2 MG/DL (8.5-10.1) 7.9 MG/DL (8.5-10.1) Alkaline Phosphatase 127 U/L (45-117) Aspartate Amino Transf (AST/SGOT) 54 U/L (15-37) 46 U/L (15-37) Total Bilirubin 1.9 MG/DL (0.2-1.0) 1.3 MG/DL (0.2-1.0) Estimat Glomerular Filtration Rate 62 ML/MIN (>89) 77 ML/MIN (>89) C-Reactive Protein 1.83 MG/DL (0.00-0.30) Urine Turbidity HAZY (CLEAR) Urine Protein 30 mg/dL (NEG-TRACE) Urine Occult Blood MOD (NEG) Urine Leukocyte Esterase TRACE (NEG) [place] PRESENT (NORMAL) Albumin 3.1 GM/DL (3.4-5.0) Chloride Level 109 MEQ/L (98-107) Corrected White Blood Count 14.7 TH/MM3 (4.0-11.0) Eosinophils (%) (Auto) 7.5 % (0.0-4.0) Basophils (%) (Auto) 3.3 % (0.0-2.0) Neutrophils # (Auto) 8.4 TH/MM3 (1.8-7.7) Monocytes # (Auto) 1.1 TH/MM3 (0-0.9) Eosinophils # (Auto) 1.2 TH/MM3 (0-0.4) Basophils # (Auto) 0.5 TH/MM3 (0-0.2) Neutrophils # (Manual) 9.8 TH/MM3 (1.8-7.7) Metamyelocytes 2 % (0-1) Imaging Last Impressions Chest X-Ray 02/14/172134 Signed Impressions: Service Date/Time: Tuesday, February 14, 2017 22:16 - CONCLUSION: No acute cardiopulmonary disease identified. Yusuf Baugh MD PE at Discharge GENERAL: NAD SKIN: Warm and dry. HEAD: Normocephalic. EYES: No scleral icterus. No injection or drainage. NECK: Supple, trachea midline. No JVD or lymphadenopathy. CARDIOVASCULAR: Regular rate and rhythm without murmurs, gallops, or rubs. RESPIRATORY: Breath sounds equal bilaterally. No accessory muscle use. GASTROINTESTINAL: Abdomen soft, non-tender, nondistended. MUSCULOSKELETAL: No cyanosis, or edema. BACK: Nontender without obvious deformity. No CVA tenderness. Hospital Course Patient admitted secondary to nasal occlusive sickle cell crisis for which she was treated with aggressive IV fluid resuscitation along with parenteral narcotics with improvement of her pain. She was continued on folate acid along with Hydrea. She was transfused 1 unit packed red blood cell. DVT prophylaxis were provided. Patient's condition improved prior to discharge Pt Condition on Discharge: Good Discharge Disposition: Discharge Home Discharge Time: <= 30 minutes Discharge Instructions DIET: Follow Instructions for: Heart Healthy Diet Activities you can perform: Regular-No Restrictions Follow up Referrals: PCP Follow-up - 1 Week Continued Medications: Amlodipine (Amlodipine) 5 Mg Tab 5 MG PO DAILY for Blood Pressure Management, #30 TAB 0 Refills Amoxicillin (Amoxicillin) 500 Mg Cap 500 MG PO TID for Infection, CAP 0 Refills Aspirin (Aspirin) 81 Mg Chew 81 MG CHEW DAILY for Blood Clot Prevention, TAB 0 Refills Deferasirox (Jadenu) 90 Mg Tab DAILY Folic Acid (Folic Acid) 400 Mcg Tab 1 MG PO DAILY for Nutritional Supplement, TAB 0 Refills Hydromorphone (Dilaudid) 4 Mg Tab 4 MG PO Q6H PRN for Pain Management, TAB 0 Refills Hydroxyurea (Hydrea) 500 Mg Cap 500 MG PO TID for SICKLE CELL, CAP 0 Refills Gen Mckeon MD Feb 17, 2017 09:35
== END 2017-02-17 11:56 | disposition home or self-care (01) | DRG 812 ==
LOC: PHED 20:52 → PHEDA 23:24 → PH3B 02-15 00:19
PROVIDERS: ADMIT Hospitalist; ATTEND Hospitalist
DX: D57.00 Hb-SS disease with crisis, unspecified (principal); M41.9 Scoliosis, unspecified; I12.9 Hypertensive chronic kidney disease with stage 1 through stage 4 chronic kidney disease, or unspecified chronic kidney disease; N18.9 Chronic kidney disease, unspecified; Z79.82 Long term (current) use of aspirin; Z86.718 Personal history of other venous thrombosis and embolism; Z82.49 Family history of ischemic heart disease and other diseases of the circulatory system; Z83.2 Family history of diseases of the blood and blood-forming organs and certain disorders involving the immune mechanism; Z88.5 Allergy status to narcotic agent; Z88.6 Allergy status to analgesic agent; Z96.643 Presence of artificial hip joint, bilateral
CPT/HCPCS: 36430; 71010; 80053; 81001; 85007; 85027; 85044; 85660; 86140; 86850; 86900; 86901; 86920; 86922; 87040; 93005; 96361; 96374; 96375; J1170; J1200; J2405; J2997; J7030; J7050; P9016

== ENCOUNTER 2017-03-05 09:16 | Emergency (ER) | payer OTHER ==
[~2017-03-05] VITALS: Ht 165.1 cm; Wt 62.1 kg
[2017-03-05 09:18] VITALS: BP 146/85; PULSE 116; RESP 18; TEMP 97.4; O2SAT 95
[2017-03-05] MEDS ORDERED: HYDR-3516 PO ×2 (09:35)
[2017-03-05] MEDS ORDERED: CLIN300C5 PO (09:39)
[2017-03-05] MEDS ORDERED: ONDANSETRON HCL 4 MG/2 ML VIAL IV PUSH ONE (10:00)
[2017-03-05] MEDS ORDERED: SODIUM CHLOR 0.9% 1000 ML INJ 1,000 ML IV ONE (10:00)
[2017-03-05] MEDS ORDERED: HYDROmorphone HCL PF 1 MG/ML VIAL IV PUSH ONE ×2 (10:00→11:45)
[2017-03-05 10:15] LABS: HEMATOCRIT 24.3 % (35.0-46.0); MEAN CORPUSCULAR HGB CONC 33.3 % (32.0-36.0); PLATELET COUNT 465 TH/MM3 (150-450); RED BLOOD COUNT 2.69 MIL/MM3 (4.00-5.30); RED CELL DISTRIBUTION WIDTH 25.1 % (11.6-17.2); WHITE BLOOD COUNT 12.1 TH/MM3 (4.0-11.0)
[2017-03-05 10:16] LABS: HEMO FLAGS AUTO DIFF
[2017-03-05 10:24] LABS: POTASSIUM 4.6 MEQ/L (3.5-5.1)
[2017-03-05 10:27] LABS: BICARBONATE 24.9 MEQ/L (21.0-32.0)
[2017-03-05] MEDS ORDERED: diphenhydrAMINE HCL 25 MG CAP PO ONE (10:30)
[2017-03-05 10:44] VITALS: BP 104/66; PULSE 88; RESP 18; O2SAT 99
[2017-03-05 10:45] LABS: CORRECTED NUCLEATED RBC 3 /100 WBC (0-0); EOSINOPHILS 5 % (0-4); NEUTROPHIL # MANUAL DIFF 8.5 TH/MM3 (1.8-7.7); POLYS (SEG NEUTROPHILS) 70 % (16-70); WBC DIFF SAMPLE 100
[2017-03-05 10:46] LABS: KERATOCYTES 1+ (NORMAL); OVALOCYTES 1+ (NORMAL); PLATELET ESTIMATE SMEAR NORMAL (NORMAL); PLATELET MORPHOLOGY NORMAL (NORMAL); SCAN/DIFF FINAL DIFF MANUAL; SICKLE CELLS 2+ (NORMAL); TARGET CELLS 2+ (NORMAL)
--- NOTE | 2017-03-05 10:46 | RADRPT ---
EXAM DATE/TIME: 03/05/2017 10:00 [place] COMPARISON: CHEST PA & LAT, July 06, 2016, 14:47. INDICATIONS : Sickle cell crisis. Mid chest pain. MEDICAL HISTORY : Deep venous thrombosis. Sickle Cell disease. Hypertension. Pneumonia. Ovarian cyst. Scoliosis. SURGICAL HISTORY : Appendectomy. Cholecystectomy. Spina rods placed. Bilateral hip replacements. Infusaport. ENCOUNTER: Initial ACUITY: 1 day PAIN SCORE: 5/10 LOCATION: chest FINDINGS: Frontal and lateral views of the chest demonstrate normal-sized cardiac silhouette. Right chest mendoza Oorqig-[id number]-Ecce is present with distal tip in the SVC. Right-sided thoracic screws are present at a co ntiguous levels in the thoracic spine. No effusion, consolidation, or pneumothorax is identified. The re are stable changes of the right seventh rib characteristic of prior thoracotomy. Cholecystectomy c lips are present. S-shaped thoracic lumbar scoliosis is present. CONCLUSION: No acute cardiopulmonary abnormality is identified. Dejon Landaverde MD on March 05, 2017 at 10:44 Board Certified Radiologist. This report was verified electronically.
[2017-03-05 11:48] LABS: GLUCOSE,URINE NEG (NEG); KETONE, URINE NEG (NEG); NITRITE,URINE NEG (NEG); PH, URINE 6.5 (5.0-8.5)
[2017-03-05 11:57] LABS: BLOOD, URINE TRACE (NEG); METHOD OF COLLECTION CLEAN CATCH; URINE COLOR YELLOW (YELLW/STRAW)
[2017-03-05 11:58] LABS: BACTERIA, URINE OCC /hpf; COMMENT (UR) CULT NOT INDICATED; CULTURE IF INDICATED CULT NOT INDICATED; RBC, URINE 0-3 /hpf (0-3); SQUAMOUS EPITHELIAL CELL URINE > 8 /hpf (0-5)
[2017-03-05 12:01] VITALS: BP 108/64; PULSE 89; RESP 18; O2SAT 100
[2017-03-05 12:47] VITALS: BP 123/73; PULSE 80; RESP 16; O2SAT 100
--- NOTE | 2017-03-05 12:56 | PD ---
HPI Chief Complaint: Sickle Cell Time Seen by Provider: 09:50 Travel History International Travel<30 days: No Contact w/Intl Traveler<30days: No Traveled to known affect area: No History of Present Illness HPI Patient is a 36-year-old female who comes in complaining of sickle cell pain. She has history of sickle cell to he had her wisdom teeth removed earlier this week, and she believes that that has triggered her crisis. She complains of chest and back pain. She denies fever or chills or any shortness of breath. She says she took her pain medicine last night, but the pain came back. She says her pain is typical of her sickle cell pain. She says that her teeth are hurting, but she does not believe she is having any issues from the procedure. PFSH Past Medical History Hx Anticoagulant Therapy: Yes (ASA) Anemia: Yes (SICKLE CELL) Arthritis: No Asthma: No Autoimmune Disease: No Blood Disorders: Yes (SICKLE CELL) Anxiety: No Depression: No Heart Rhythm Problems: No Cancer: No Cardiovascular Problems: Yes (htn on meds) High Cholesterol: No Chemotherapy: No Chest Pain: No Congestive Heart Failure: No COPD: No Cerebrovascular Accident: No Diabetes: No Diminished Hearing: No Deep Vein Thrombosis: Yes (HX LEFT ARM ) Endocrine: No Gastrointestinal Disorders: No GERD: No Glaucoma: No Genitourinary: Yes Headaches: Yes Hepatitis: No Hiatal Hernia: No Heparin Induced Thrombocytopen: No Hypertension: Yes Immune Disorder: Yes (SICKLE CELL) Implanted Vascular Access Dvce: Yes (POWER INFUSAPORT) Kidney Stones: No Musculoskeletal: Yes (SCOLIOSIS) Neurologic: Yes Psychiatric: No Reproductive: No Respiratory: No Immunizations Current: Yes Migraines: Yes Pneumonia: Yes Radiation Therapy: No Renal Failure: No Seizures: No Sickle Cell Disease: Yes Sleep Apnea: No Thyroid Disease: No Ulcer: No PNEUMOCCOCAL Vaccine (Year): 2008 ?: Not Menopausal: No : 5 Para: 2 Miscarriage: 3 : 0 Ovarian Cysts: Yes Past Surgical History Abdominal Surgery: Yes (cholecystectomy) AICD: No Appendectomy: Yes Arteriovenous Shunt: No Body Medical Devices: CATIA IN UPPER BACK Cardiac Surgery: No Cholecystectomy: Yes Ear Surgery: No Endocrine Surgery: No Eye Surgery: No Genitourinary Surgery: No Gynecologic Surgery: No Hysterectomy: No Insulin Pump: No Joint Replacement: Yes (R HIP REPLACEMENT 2011, L HIP 2014) Neurologic Surgery: No Oral Surgery: No Pacemaker: No Thoracic Surgery: No Other Surgery: Yes (INSERTION OF INFUSA PORTX 3) Social History Alcohol Use: Yes (OCCASIONAL WINE) Tobacco Use: No Substance Use: No Allergies-Medications (Allergen,Severity, Reaction): Coded Allergies: ketorolac (Unverified Allergy, Severe, Itching, 03/05/17) morphine (Unverified Allergy, Mild, Swelling, 03/05/17) ibuprofen (Unverified Adverse Reaction, Severe, Urinary Freq (Inc/Dec), ) RENAL FAILURE methadone (Unverified Adverse Reaction, Severe, DEPRESSION, 03/05/17) Reported Meds & Prescriptions Reported Meds & Active Scripts Active Reported Clindamycin (Clindamycin HCl) 300 Mg Cap 300 Mg PO TID Hydrocodone-Acetaminophen 5-325 mg Tab 2 Tab PO Q6H PRN Dilaudid (Hydromorphone HCl) 4 Mg Tab 4 Mg PO Q6H PRN Hydrea (Hydroxyurea) 500 Mg Cap 500 Mg PO TID Folic Acid 400 Mcg Tab 1 Mg PO DAILY Aspirin 81 Mg Chew 81 Mg CHEW DAILY Jadenu (Deferasirox) 90 Mg Tab DAILY Amlodipine (Amlodipine Besylate) 5 Mg Tab 5 Mg PO DAILY Review of Systems Except as stated in HPI: all other systems reviewed are Neg General / Constitutional: No: Fever, Chills HENT: No: Headaches, Lightheadedness Cardiovascular: Positive: Chest Pain or Discomfort Respiratory: No: Cough, Shortness of Breath Gastrointestinal: No: Nausea, Vomiting Genitourinary: No: Dysuria Musculoskeletal: Positive: Pain Skin: No Rash, No Change in Pigmentation Neurologic: No: Weakness, Dizziness Physical Exam Narrative GENERAL: Awake and alert, in no acute distress. SKIN: Focused skin assessment warm/dry. HEAD: Atraumatic. Normocephalic. EYES: Pupils equal and round. No scleral icterus. ENT: Mucous membranes pink and moist. No abscess or active drainage from where her wisdom teeth were removed. No swelling to the area or signs of infection. NECK: Trachea midline. No JVD. CARDIOVASCULAR: Regular rate and rhythm. No murmur appreciated. RESPIRATORY: No accessory muscle use. Clear to auscultation. Breath sounds equal bilaterally. GASTROINTESTINAL: Abdomen soft, non-tender, nondistended. MUSCULOSKELETAL: No obvious deformities. No clubbing. No cyanosis. No edema. NEUROLOGICAL: Awake and alert. No obvious cranial nerve deficits. Motor grossly within normal limits. Normal speech. PSYCHIATRIC: Appropriate mood and affect; insight and judgment normal. Data Data Last Documented VS Vital Signs Date Time Temp Pulse Resp B/P (MAP) Pulse Ox O2 Delivery O2 Flow Rate FiO2 03/05/17 13:20 03/05/17 13:04 18 03/05/17 12:47 80 100 Nasal Cannula 2.00 03/05/17 09:18 97.4 Orders Orders Complete Blood Count With Diff (03/05/17 09:40) Basic Metabolic Panel (Bmp) (03/05/17 09:40) Iv Access Insert/Monitor (03/05/17 09:54) Retic Count (03/05/17 09:54) Chest, Pa & Lat (03/05/17 ) Ed Urine Pregnancytest Poc (03/05/17 09:54) Urinalysis - C+S If Indicated (03/05/17 09:54) Sodium Chlor 0.9% 1000 Ml Inj (Ns 1000 M (03/05/17 10:00) Ondansetron Inj (Zofran Inj) (03/05/17 10:00) Hydromorphone Pf Inj (Dilaudid Pf Inj) (03/05/17 10:00) Diphenhydramine (Benadryl) (03/05/17 10:30) Hydromorphone Pf Inj (Dilaudid Pf Inj) (03/05/17 11:45) Ed Discharge Order (03/05/17 12:56) Heparin Central Flush (Heparin Central F (03/05/17 13:15) Labs Laboratory Tests Test 03/05/17 10:10 03/05/17 11:35 White Blood Count 12.1 TH/MM3 Red Blood Count 2.69 MIL/MM3 Hemoglobin 8.1 GM/DL Hematocrit 24.3 % Mean Corpuscular Volume 90.0 FL Mean Corpuscular Hemoglobin 30.0 PG Mean Corpuscular Hemoglobin Concent 33.3 % Red Cell Distribution Width 25.1 % Platelet Count 465 TH/MM3 Mean Platelet Volume 8.1 FL CBC Comment AUTO DIFF Differential Total Cells Counted 100 Neutrophils % (Manual) 70 % Lymphocytes % 15 % Monocytes % 10 % Eosinophils % 5 % Neutrophils # (Manual) 8.5 TH/MM3 Nucleated Red Blood Cells 3 /100 WBC Differential Comment FINAL DIFF MANUAL Platelet Estimate NORMAL Platelet Morphology Comment NORMAL Sickle Cells 2+ Target Cells 2+ Ovalocytes 1+ Keratocytes 1+ Reticulocyte Count 7.6 % Absolute Reticulocyte Count 201.6 MIL/L Blood Urea Nitrogen 17 MG/DL Creatinine 1.10 MG/DL Random Glucose 93 MG/DL Calcium Level 9.0 MG/DL Sodium Level 138 MEQ/L Potassium Level 4.6 MEQ/L Chloride Level 107 MEQ/L Carbon Dioxide Level 24.9 MEQ/L Anion Gap 6 MEQ/L Estimat Glomerular Filtration Rate 69 ML/MIN Urine Collection Type CLEAN CATCH Urine Color YELLOW Urine Turbidity CLEAR Urine pH 6.5 Urine Specific [place] 1.010 Urine Protein NEG mg/dL Urine Glucose (UA) NEG mg/dL Urine Ketones NEG mg/dL Urine Occult Blood TRACE Urine Nitrite NEG Urine Bilirubin NEG Urine Leukocyte Esterase NEG Urine RBC 0-3 /hpf Urine Squamous Epithelial Cells > 8 /hpf Urine Bacteria OCC /hpf Microscopic Urinalysis Comment CULT NOT INDICATED Urine Collection Time 11:35 MDM Medical Decision Making Medical Screen Exam Complete: Yes Emergency Medical Condition: Yes Medical Record Reviewed: Yes Differential Diagnosis Sickle cell crisis versus acute chest syndrome versus pneumonia Narrative Course Patient is a 36-year-old female with history of sickle cell disease, who comes in complaining of sickle cell pain. Exam shows no acute abnormalities. IV established, labs sent. Hgb is 8.1, which is near her baseline. CXR shows no acute abnormalities. Given IVF, Hydromorphone, Benadryl. She received a second dose of pain medicine and reports feeling better. She has pain medicine at home. She'll be discharged home with follow-up with her doctors. Advised to return to the ED as needed for any worsening symptoms. Diagnosis Primary Impression: Sickle cell anemia with crisis Patient Instructions: General Instructions, Sickle Cell Crisis (ED) Additional Instructions: Drink plenty of fluids. Take pain medicine as needed. Follow-up with your doctor. Return to the ED as needed for any worsening symptoms. Disposition: 01 DISCHARGE HOME Condition: Stable Jenifer Hernandez MD Mar 05, 2017 12:56
[2017-03-05 13:04] VITALS: RESP 18
[2017-03-05 14:13] LABS: RETIC % 7.6 % (0.4-3.0)
[2017-03-05 14:17] LABS: REVIEW FLAG FINAL
== END 2017-03-05 13:22 | disposition home or self-care (01) ==
LOC: PHED 09:16
DX: D57.00 Hb-SS disease with crisis, unspecified (principal); I10 Essential (primary) hypertension; M41.9 Scoliosis, unspecified; Z79.82 Long term (current) use of aspirin; Z86.718 Personal history of other venous thrombosis and embolism
CPT/HCPCS: 71020; 80048; 81001; 84703; 85007; 85027; 85044; 96361; 96374; 96375; 96376; 99284; J1170; J1642; J2405; J7030

== ENCOUNTER 2017-03-11 22:39 | Inpatient (IN) | payer OTHER, MEDICARE ==
[~2017-03-11] VITALS: Ht 162.6 cm; Wt 67.1 kg
[~2017-03-11 22:39] MED LIST changes: +CLIN300C5 PO; +HYDR-3516 PO
[2017-03-11 22:45] VITALS: BP 138/101; PULSE 133; RESP 24; TEMP 100.3; O2SAT 98
[2017-03-11] MEDS ORDERED: SODIUM CHLOR 0.9% 1000 ML INJ 1,000 ML IV ONE ×2 (22:58→23:30)
[2017-03-11] MEDS ORDERED: diphenhydrAMINE HCL 50 MG/ML VIAL IV PUSH ONE (23:00)
[2017-03-11] MEDS ORDERED: ONDANSETRON HCL 4 MG/2 ML VIAL IVP ONE (23:00)
[2017-03-11] MEDS ORDERED: SODIUM CHLORIDE 0.9% FLUSH 10 ML FLUSH IVF PRN (23:00)
[2017-03-11] MEDS ORDERED: HYDROmorphone HCL PF 2 MG/ML VIAL IV PUSH ONE (23:00)
[2017-03-11 23:15] VITALS: BP 132/81; PULSE 119; RESP 18; TEMP 102; O2SAT 100
--- NOTE | 2017-03-11 23:25 | PD ---
HPI Chief Complaint: Sickle Cell Time Seen by Provider: 22:53 Travel History International Travel<30 days: No Contact w/Intl Traveler<30days: No Traveled to known affect area: No History of Present Illness HPI 36-year-old female with history of sickle cell anemia, chronic renal insufficiency, iron overload, AVN, multiple VTE in 2013, here for evaluation of sickle cell pain crisis. Patient reports that she had sudden onset of pain prior to arrival. Pain is diffuse, described as sharp, severe. She had 3 of her wisdom teeth removed one week ago. She is feeling chills. She denies cough , upper respiratory symptoms, or recent illness. No dyspnea. She follows with television agent Dr. Shea and reports compliance with Jadenu and Hydrea. PFSH Past Medical History Hx Anticoagulant Therapy: Yes (ASA) Anemia: Yes (SICKLE CELL) Arthritis: No Asthma: No Autoimmune Disease: No Blood Disorders: Yes (SICKLE CELL) Anxiety: No Depression: No Heart Rhythm Problems: No Cancer: No Cardiovascular Problems: Yes (htn on meds) High Cholesterol: No Chemotherapy: No Chest Pain: No Congestive Heart Failure: No COPD: No Cerebrovascular Accident: No Diabetes: No Diminished Hearing: No Deep Vein Thrombosis: Yes (HX LEFT ARM ) Endocrine: No Gastrointestinal Disorders: No GERD: No Glaucoma: No Genitourinary: Yes Headaches: Yes Hepatitis: No Hiatal Hernia: No Heparin Induced Thrombocytopen: No Hypertension: Yes Immune Disorder: Yes (SICKLE CELL) Implanted Vascular Access Dvce: Yes (POWER INFUSAPORT) Kidney Stones: No Musculoskeletal: Yes (SCOLIOSIS) Neurologic: Yes Psychiatric: No Reproductive: No Respiratory: No Immunizations Current: Yes Migraines: Yes Pneumonia: Yes Radiation Therapy: No Renal Failure: No Seizures: No Sickle Cell Disease: Yes Sleep Apnea: No Thyroid Disease: No Ulcer: No PNEUMOCCOCAL Vaccine (Year): 2008 Menopausal: No : 5 Para: 2 Miscarriage: 3 : 0 Ovarian Cysts: Yes Past Surgical History Abdominal Surgery: Yes (cholecystectomy) AICD: No Appendectomy: Yes Arteriovenous Shunt: No Body Medical Devices: CATIA IN UPPER BACK Cardiac Surgery: No Cholecystectomy: Yes Ear Surgery: No Endocrine Surgery: No Eye Surgery: No Genitourinary Surgery: No Gynecologic Surgery: No Hysterectomy: No Insulin Pump: No Joint Replacement: Yes (R HIP REPLACEMENT 2011, L HIP 2014) Neurologic Surgery: No Oral Surgery: No Pacemaker: No Thoracic Surgery: No Other Surgery: Yes (INSERTION OF INFUSA PORTX 3) Social History Alcohol Use: Yes (OCCASIONAL WINE) Tobacco Use: No Substance Use: No Allergies-Medications (Allergen,Severity, Reaction): Coded Allergies: ketorolac (Unverified Allergy, Severe, Itching, 03/11/17) morphine (Unverified Allergy, Mild, Swelling, 03/11/17) ibuprofen (Unverified Adverse Reaction, Severe, Urinary Freq (Inc/Dec), ) RENAL FAILURE methadone (Unverified Adverse Reaction, Severe, DEPRESSION, 03/11/17) Reported Meds & Prescriptions Reported Meds & Active Scripts Active Reported Clindamycin (Clindamycin HCl) 300 Mg Cap 300 Mg PO TID Hydrocodone-Acetaminophen 5-325 mg Tab 2 Tab PO Q6H PRN Dilaudid (Hydromorphone HCl) 4 Mg Tab 4 Mg PO Q6H PRN Hydrea (Hydroxyurea) 500 Mg Cap 500 Mg PO TID Folic Acid 400 Mcg Tab 1 Mg PO DAILY Aspirin 81 Mg Chew 81 Mg CHEW DAILY Jadenu (Deferasirox) 90 Mg Tab DAILY Amlodipine (Amlodipine Besylate) 5 Mg Tab 5 Mg PO DAILY Review of Systems Except as stated in HPI: all other systems reviewed are Neg Physical Exam Narrative GENERAL: Well-developed, well-nourished, tearful, shivering SKIN: Focused skin assessment warm/dry. No rash. HEAD: Atraumatic. Normocephalic. EYES: Pupils equal and round. No scleral icterus. No injection or drainage. ENT: Mucous membranes pink and moist. Mild palatal petechiae. Pharynx with mild erythema. Uvula is midline. No drooling or stridor. No fluctuance or induration. NECK: Trachea midline. No JVD. No nuchal rigidity. CARDIOVASCULAR: Tachycardic, rate 130, regular. RESPIRATORY: No accessory muscle use. Clear to auscultation. Breath sounds equal bilaterally. GASTROINTESTINAL: Abdomen soft, non-tender, nondistended. MUSCULOSKELETAL: No obvious deformities. No clubbing. No cyanosis. No edema. No signs of dactylitis. No warmth or erythema to her joints. NEUROLOGICAL: Awake and alert. No obvious cranial nerve deficits. Motor grossly within normal limits. Normal speech. PSYCHIATRIC: Appropriate mood and affect; insight and judgment normal. Data Data Last Documented VS Vital Signs Date Time Temp Pulse Resp B/P (MAP) Pulse Ox O2 Delivery O2 Flow Rate FiO2 03/12/17 00:13 16 99 Nasal Cannula 2.00 03/12/17 00:11 99.3 120 Orders Orders Complete Blood Count With Diff (03/11/17 22:58) Comprehensive Metabolic Panel (03/11/17 22:58) Retic Count (03/11/17 22:58) Urinalysis - C+S If Indicated (03/11/17 22:58) Blood Culture (03/11/17 22:58) Chest, Single Ap (03/11/17 22:58) Ecg Monitoring (03/11/17 22:58) Iv Access Insert/Monitor (03/11/17:58) Oximetry (03/11/17 22:58) Ondansetron Inj (Zofran Inj) (03/11/17 23:00) Sodium Chloride 0.9% Flush (Ns Flush) (03/11/17 23:00) Sodium Chlor 0.9% 1000 Ml Inj (Ns 1000 M (03/11/17 22:58) Diphenhydramine Inj (Benadryl Inj) (03/11/17 23:00) Hydromorphone Pf Inj (Dilaudid Pf Inj) (03/11/17 23:00) Beta Hcg (Quant/Titer) (03/11/17 22:58) Influenzae A/B Antigen (03/11/17 22:58) Acetaminophen (Tylenol) (03/11/17 23:30) Group A Rapid Strep Screen (03/11/17 23:18) Sodium Chlor 0.9% 1000 Ml Inj (Ns 1000 M (03/11/17 23:30) Strep Culture (Group A) (03/11/17 23:35) Hydromorphone Pf Inj (Dilaudid Pf Inj) (03/12/17 00:00) Urine Culture (03/12/17 00:07) Ceftriaxone Inj (Rocephin Inj) (03/12/17 00:45) Fluconazole (Diflucan) (03/12/17 00:45) Labs Laboratory Tests Test 03/11/17 23:20 03/12/17 00:07 White Blood Count 12.8 TH/MM3 Red Blood Count 2.70 MIL/MM3 Hemoglobin 7.9 GM/DL Hematocrit 23.8 % Mean Corpuscular Volume 88.1 FL Mean Corpuscular Hemoglobin 29.1 PG Mean Corpuscular Hemoglobin Concent 33.1 % Red Cell Distribution Width 28.5 % Platelet Count 433 TH/MM3 Mean Platelet Volume 9.1 FL CBC Comment AUTO DIFF Differential Total Cells Counted 100 Neutrophils % (Manual) 72 % Lymphocytes % 19 % Monocytes % 5 % Eosinophils % 4 % Neutrophils # (Manual) 9.2 TH/MM3 Nucleated Red Blood Cells 4 /100 WBC Differential Comment FINAL DIFF MANUAL Platelet Estimate NORMAL Platelet Morphology Comment NORMAL Sickle Cells 2+ Target Cells 1+ Ovalocytes 1+ Blood Urea Nitrogen 11 MG/DL Creatinine 1.30 MG/DL Random Glucose 98 MG/DL Total Protein 8.7 GM/DL Albumin 3.8 GM/DL Calcium Level 8.6 MG/DL Alkaline Phosphatase 131 U/L Aspartate Amino Transf (AST/SGOT) 39 U/L Alanine Aminotransferase (ALT/SGPT) 29 U/L Total Bilirubin 1.5 MG/DL Sodium Level 138 MEQ/L Potassium Level 4.2 MEQ/L Chloride Level 105 MEQ/L Carbon Dioxide Level 23.9 MEQ/L Anion Gap 9 MEQ/L Estimat Glomerular Filtration Rate 57 ML/MIN Human Chorionic Gonadotropin, Quant 5 MIU/ML Urine Color YELLOW Urine Turbidity HAZY Urine pH 6.5 Urine Specific [place] 1.011 Urine Protein TRACE mg/dL Urine Glucose (UA) NEG mg/dL Urine Ketones NEG mg/dL Urine Occult Blood SMALL Urine Nitrite NEG Urine Bilirubin NEG Urine Leukocyte Esterase MOD Urine RBC 3-5 /hpf Urine WBC 15-19 /hpf Urine Squamous Epithelial Cells 0-5 /hpf Urine Bacteria FEW /hpf Urine Yeast (Budding) FEW Microscopic Urinalysis Comment CULTURE INDICATED MDM Medical Decision Making Medical Screen Exam Complete: Yes Emergency Medical Condition: Yes Medical Record Reviewed: Yes Differential Diagnosis Sickle cell crisis, acute chest syndrome, pneumonia, viral illness, strep pharyngitis, bacteremia, Narrative Course Initial vital signs show heart rate 133, blood pressure 138/101, also ask 98% on room air, oral temp of 102F. CBC: WBC 12.8, hemoglobin 7.9, hematocrit 23.8, platelets 433, neutrophils 72%, 2+ sickle cells CMP is remarkable for creatinine 1.3, GFR 57 which is around her baseline, AST 39, alkaline phosphatase 131, T bili 1.5. Absolute reticulocyte count UA: Hazy, small occult blood, moderate leukocyte esterase, 15-19 wbc's, 0-5 epithelial cells, few bacteria, few budding yeast. Influenza is negative. Group A strep is negative. Chest x-ray: No acute cardiopulmonary disease. Patient's heart rate remains elevated at 118 beats per minutes after 1 L of normal saline IV and pain medicine. On physical exam there are no skin infections. There are no signs of any joint infections or dactylitis. Her abdominal exam shows no tenderness. UA is suggestive of UTI and the patient was started on Rocephin. She also had few budding yeast in her urine and was given a dose of Diflucan. Patient has a Port-A-Cath, and given fever and tachycardia, could also likely be a source of infection. Blood cultures were sent. She did have 3 was in teeth removed one week ago, over no obvious signs of infection in her mouth. Patient was given 2 doses of IV Dilaudid and continues to have pain, however states it is improved. Given persistent tachycardia, ongoing pain, and symptoms of vaso-occlusive crisis, sepsis, UTI, patient be admitted for further treatment and evaluation. She is amenable to this plan. Case discussed with hospitalist Dr. Moss who will admit the patient to her service. Diagnosis Primary Impression: Vaso-occlusive sickle cell crisis Additional Impressions: UTI (urinary tract infection) Qualified Codes: N39.0 - Urinary tract infection, site not specified; R31.9 - Hematuria, unspecified Sepsis Qualified Codes: A41.9 - Sepsis, unspecified organism Admitting Information Admitting Physician Requests: Admit Rico Champion MD Mar 11, 2017 23:25
[2017-03-11] MEDS ORDERED: ACETAMINOPHEN 325 MG TAB PO ONE (23:30)
[2017-03-11 23:35] LABS: HEMATOCRIT 23.8 % (35.0-46.0); MEAN CELL VOLUME 88.1 FL (80.0-100.0); MEAN CORPUSCULAR HEMOGLOBIN 29.1 PG (27.0-34.0); MEAN CORPUSCULAR HGB CONC 33.1 % (32.0-36.0); PLATELET COUNT 433 TH/MM3 (150-450); RED CELL DISTRIBUTION WIDTH 28.5 % (11.6-17.2); WHITE BLOOD COUNT 12.8 TH/MM3 (4.0-11.0)
[2017-03-11 23:39] LABS: HEMO FLAGS AUTO DIFF
[2017-03-11 23:46] LABS: CHLORIDE 105 MEQ/L (98-107); POTASSIUM 4.2 MEQ/L (3.5-5.1); SODIUM (NA) 138 MEQ/L (136-145)
[2017-03-11 23:50] LABS: ANION GAP 9 MEQ/L (5-15); BICARBONATE 23.9 MEQ/L (21.0-32.0); BLOOD UREA NITROGEN 11 MG/DL (7-18)
[2017-03-11 23:52] LABS: CORRECTED NUCLEATED RBC 4 /100 WBC (0-0); EOSINOPHILS 4 % (0-4); NEUTROPHIL # MANUAL DIFF 9.2 TH/MM3 (1.8-7.7); OVALOCYTES 1+ (NORMAL); POLYS (SEG NEUTROPHILS) 72 % (16-70); SICKLE CELLS 2+ (NORMAL); TARGET CELLS 1+ (NORMAL); WBC DIFF SAMPLE 100
[2017-03-11 23:53] LABS: ALT (GPT) 29 U/L (10-53); AST (GOT) 39 U/L (15-37); GLOMERULAR FILTRATION RATE 57 ML/MIN (>89); PLATELET ESTIMATE SMEAR NORMAL (NORMAL); PLATELET MORPHOLOGY NORMAL (NORMAL); SCAN/DIFF FINAL DIFF MANUAL
[2017-03-11 23:54] LABS: TOTAL BILIRUBIN ADULT 1.5 MG/DL (0.2-1.0)
--- NOTE | 2017-03-11 23:55 | RADRPT ---
EXAM DATE/TIME: 03/11/2017 23:20 [facility] COMPARISON: CHEST PA & LAT, March 05, 2017, 10:00. CHEST SINGLE AP, February 14, 2017, 22:16. INDICATIONS : Sickle cell crisis MEDICAL HISTORY : Deep venous thrombosis. Sickle Cell disease. Hypertension. Pneumonia. Scoliosis. SURGICAL HISTORY : Appendectomy. Cholecystectomy. Spinal rods placed. Infusaport. ENCOUNTER: Initial ACUITY: 1 day PAIN SCORE: 10/10 LOCATION: Bilateral chest FINDINGS: Single AP view of the chest. Right-sided thoracic spinal hardware in place. Right-sided [id number] remains in place. The lungs are clear. Cardiomediastinal silhouette within normal limits. No evidenc e of pleural effusion or pneumothorax. CONCLUSION: No acute cardiopulmonary disease identified. Yusuf Baugh MD on March 11, 2017 at 23:52 Board Certified Radiologist. This report was verified electronically.
[2017-03-11 23:56] LABS: ALKALINE PHOSPHATASE 131 U/L (45-117)
[2017-03-11 23:58] LABS: BETA HCG QUANT 5 MIU/ML (0-5)
[2017-03-12] VITALS (11 sets, daily range): BP systolic 96–136; BP diastolic 55–86; PULSE 85–133; RESP 16–18; TEMP 97.3–102.4; O2SAT 85–99
[2017-03-12] MEDS ORDERED: HYDROmorphone HCL PF 2 MG/ML VIAL IV PUSH ONE
[2017-03-12 00:16] LABS: BLOOD, URINE SMALL (NEG); GLUCOSE,URINE NEG (NEG); KETONE, URINE NEG (NEG); NITRITE,URINE NEG (NEG); PH, URINE 6.5 (5.0-8.5)
[2017-03-12 00:28] LABS: URINE COLOR YELLOW (YELLW/STRAW)
[2017-03-12 00:30] LABS: BACTERIA, URINE FEW /hpf; COMMENT (UR) CULTURE INDICATED; CULTURE IF INDICATED CULTURE INDICATED; SQUAMOUS EPITHELIAL CELL URINE 0-5 /hpf (0-5); WBC, URINE 15-19 /hpf (0-5)
[2017-03-12] MEDS ORDERED: SODIUM CHLORIDE 0.9% FLUSH 10 ML FLUSH IV FLUSH PRN (00:45)
[2017-03-12] MEDS ORDERED: LACTULOSE SYRUP 20 GM/30 ML CUP PO PRN (00:45)
[2017-03-12] MEDS ORDERED: MAGNESIUM HYDROXIDE SUSP 30 ML CUP PO PRN (00:45)
[2017-03-12] MEDS ORDERED: cefTRIAXone INJ 1,000 MG in SODIUM CHLORIDE 0.9% INJ 100 ML IV ONE (00:45)
[2017-03-12] MEDS ORDERED: SENNOSIDES 8.6 MG TAB PO PRN (00:45)
[2017-03-12] MEDS ORDERED: HYDROmorphone HCL PF 2 MG/ML VIAL IV PUSH PRN (00:45)
[2017-03-12] MEDS ORDERED: diphenhydrAMINE HCL 50 MG/ML VIAL IV PUSH PRN (00:45)
[2017-03-12] MEDS ORDERED: BISACODYL 10 MG SUPP RECTAL PRN (00:45)
[2017-03-12] MEDS ORDERED: FLUCONAZOLE 100 MG TAB PO ONE (00:45)
[2017-03-12 00:52] LABS: RETIC % 10.5 % (0.4-3.0)
[2017-03-12 00:53] LABS: REVIEW FLAG FINAL
[2017-03-12] MEDS: SODIUM CHLOR 0.9% 1000 ML INJ 1,000 ML IV SCH ×4 (02:22→20:42)
[2017-03-12] MEDS: HYDROmorphone HCL PF 2 MG/ML VIAL IV PUSH PRN ×5 (03:01→22:01)
[2017-03-12] MEDS: SODIUM CHLORIDE 0.9% FLUSH 10 ML FLUSH IV FLUSH SCH ×2 (08:27→21:00)
[2017-03-12] MEDS: DOCUSATE SODIUM 50 MG/SENNA 8.6 MG TAB PO SCH ×2 (08:27→21:00)
[2017-03-12] MEDS: ACETAMINOPHEN 325 MG TAB PO PRN ×3 (10:16→21:56)
[2017-03-12] MEDS: ONDANSETRON HCL 4 MG/2 ML VIAL IVP PRN ×3 (11:12→22:00)
--- NOTE | 2017-03-12 14:04 | HHI.HP ---
[facility] Nestor Murillo MD Admission Diagnosis vaso-occlusive crisis, sepsis, UTI Diagnoses: Chief Complaint: Pain all over Travel History International Travel<30 Days: No Contact w/Intl Traveler <30 Da: No Traveled to Known Affected Are: No History of Present Illness This patient's 36-year-old female with a known history of sickle cell disease. She had come to the emergency room yesterday complaining of diffuse pain all over. Recent she had wisdom tooth extraction and was given clindamycin. She came to the emergency room shortly after that complaining of pain crisis. Apparently with fluids and a short course the pain medicine she went home from the emergency room. She returns today with fever 102, leukocytosis and tachycardia. She appears dehydrated and membranes are dry and she has acute kidney injury. There is evidence of urinary tract infection and she has been given empiric Rocephin. Patient been admitted for sepsis with UTI. Her pain recurrent and intermittent and diffuse. It is moderate to severe and usually improved with IV Dilaudid. She takes oral Dilaudid at home but this was not effective. She has been admitted to the hospital for further treatment of sepsis with sickle cell associated pain. Review of Systems Constitutional: COMPLAINS OF: Fever, Chills, DENIES: Diaphoretic episodes, Fatigue, Weight gain, Weight loss, Dizziness, Change in appetite, Night Sweats Endocrine: DENIES: Abnorml menstrual pattern, Heat/cold intolerance, Polydipsia , Polyuria, Polyphagia Eyes: DENIES: Blurred vision, Diplopia, Eye inflammation, Eye pain, Vision loss , Photosensitivity, Double Vision Ears, nose, mouth, throat: DENIES: Tinnitus, Hearing loss, Vertigo, Nasal discharge, Oral lesions, Throat pain, Hoarseness, Ear Pain, Running Nose, Epistaxis, Sinus Pain, Toothache, Odynophagia Respiratory: DENIES: Apneas, Cough, Snoring, Wheezing, Hemoptysis, Sputum production, Shortness of breath Cardiovascular: DENIES: Chest pain, Palpitations, Syncope, Dyspnea on Exertion , PND, Lower Extremity Edema, Orthopnea, Claudication Gastrointestinal: DENIES: Black stools, Bloody stools, Constipation, Diarrhea, Nausea, Vomiting, Difficulty Swallowing, Anorexia Genitourinary: DENIES: Abnormal vaginal bleeding, Dysmenorrhea, Dyspareunia, Sexual dysfunction, Urinary frequency, Urinary incontinence, Urgency, Hematuria , Dysuria, Nocturia, Vaginal discharge Musculoskeletal: DENIES: Joint pain, Muscle aches, Stiffness, Joint Swelling, Back pain, Neck pain Integumentary: DENIES: Abnormal pigmentation, Pruritus, Rash, Nail changes, Breast masses, Breast skin changes, Nipple discharge Hematologic/lymphatic: DENIES: Bruising, Lymphadenopathy Immunologic/allergic: DENIES: Eczema, Urticaria Neurologic: DENIES: Abnormal gait, Headache, Localized weakness, Paresthesias, Seizures, Speech Problems, Tremor, Poor Balance Psychiatric: DENIES: Anxiety, Confusion, Mood changes, Depression, Hallucinations, Agitation, Suicidal Ideation, Homicidal Ideation, Delusions Except as stated in HPI: all other systems reviewed are Neg Past Family Social History Past Medical History Hypertension Sickle cell disease History of DVT 5 para 2 Past Surgical History Cholecystectomy Hip replacement, right, back surgery, left hip replacement History of port placement and removal Reported Medications reviewed in the EMR, recently clindamycin for dental extraction Allergies: Coded Allergies: ketorolac (Unverified Allergy, Severe, Itching, 03/11/17) morphine (Unverified Allergy, Mild, Swelling, 03/11/17) ibuprofen (Unverified Adverse Reaction, Severe, Urinary Freq (Inc/Dec), ) RENAL FAILURE methadone (Unverified Adverse Reaction, Severe, DEPRESSION, 03/11/17) Active Ordered Medications Reviewed in the EMR Family History Hypertension, sickle cell trait Social History No tobacco or alcohol dependency, lives with her family, Physical Exam Vital Signs Vital Signs Date Time Temp Pulse Resp B/P (MAP) Pulse Ox O2 Delivery O2 Flow Rate FiO2 03/12/17 12:00 97.3 116 16 96/55 (69) 91 03/12/17 08:00 99.3 112 16 113/76 (88) 91 03/12/17 04:00 99.1 85 18 131/68 (89) 98 03/12/17 03:40 99.1 85 18 131/68 (89) 98 03/12/17 02:55 108 03/12/17 02:53 03/12/17 01:43 16 03/12/17 00:13 16 99 Nasal Cannula 2.00 03/12/17 00:11 99.3 120 18 136/83 (100) 99 Nasal Cannula 2.00 03/11/17 23:54 Room Air 03/11/17 23:15 102.0 119 18 132/81 (98) 100 Nasal Cannula 2.00 03/11/17 22:45 100.3 133 24 138/101 (113) 98 Physical Exam GENERAL: This is a well-nourished, well-developed patient, complaining of diffuse pain SKIN: No rashes, ecchymoses or lesions. Cool and dry. HEAD: Atraumatic. Normocephalic. No temporal or scalp tenderness. EYES: Pupils equal round and reactive. Extraocular motions intact. No scleral icterus. No injection or drainage. ENT: Nose without bleeding, purulent drainage or septal hematoma. Throat without erythema, tonsillar hypertrophy or exudate. Uvula midline. Airway patent. NECK: Trachea midline. No JVD or lymphadenopathy. Supple, nontender, no meningeal signs. CARDIOVASCULAR: Sinus tachycardia without murmurs, gallops, or rubs. RESPIRATORY: Clear to auscultation. Breath sounds equal bilaterally. No wheezes , rales, or rhonchi. GASTROINTESTINAL: Abdomen soft, non-tender, nondistended. No hepato-splenomegaly , or palpable masses. No guarding. MUSCULOSKELETAL: Extremities without clubbing, cyanosis, or edema. No joint tenderness, effusion, or edema noted. No calf tenderness. Negative Homans sign bilaterally. NEUROLOGICAL: Awake and alert. Cranial nerves II through XII intact. Motor and sensory grossly within normal limits. Five out of 5 muscle strength in all muscle groups. Normal speech. Laboratory Laboratory Tests Test 03/11/17 23:20 03/12/17 00:07 White Blood Count 12.8 Red Blood Count 2.70 Hemoglobin 7.9 Hematocrit 23.8 Mean Corpuscular Volume 88.1 Mean Corpuscular Hemoglobin 29.1 Mean Corpuscular Hemoglobin Concent 33.1 Red Cell Distribution Width 28.5 Platelet Count 433 Mean Platelet Volume 9.1 CBC Comment AUTO DIFF Differential Total Cells Counted 100 Neutrophils % (Manual) 72 Lymphocytes % 19 Monocytes % 5 Eosinophils % 4 Neutrophils # (Manual) 9.2 Nucleated Red Blood Cells 4 Differential Comment FINAL DIFF MANUAL Platelet Estimate NORMAL Platelet Morphology Comment NORMAL Sickle Cells 2+ Target Cells 1+ Ovalocytes 1+ Reticulocyte Count 10.5 Absolute Reticulocyte Count 267.3 Blood Urea Nitrogen 11 Creatinine 1.30 Random Glucose 98 Total Protein 8.7 Albumin 3.8 Calcium Level 8.6 Alkaline Phosphatase 131 Aspartate Amino Transf (AST/SGOT) 39 Alanine Aminotransferase (ALT/SGPT) 29 Total Bilirubin 1.5 Sodium Level 138 Potassium Level 4.2 Chloride Level 105 Carbon Dioxide Level 23.9 Anion Gap 9 Estimat Glomerular Filtration Rate 57 Human Chorionic Gonadotropin, Quant 5 Urine Color YELLOW Urine Turbidity HAZY Urine pH 6.5 Urine Specific [place] 1.011 Urine Protein TRACE Urine Glucose (UA) NEG Urine Ketones NEG Urine Occult Blood SMALL Urine Nitrite NEG Urine Bilirubin NEG Urine Leukocyte Esterase MOD Urine RBC 3-5 Urine WBC 15-19 Urine Squamous Epithelial Cells 0-5 Urine Bacteria FEW Urine Yeast (Budding) FEW Microscopic Urinalysis Comment CULTURE INDICATED Date/Time Source Procedure Growth Status 03/11/17 23:30 Blood Other Aerobic Blood Culture - Preliminary NO GROWTH IN 1 DAY Resulted 03/11/17 23:30 Blood Other Anaerobic Blood Culture - Preliminary NO GROWTH IN 1 DAY Resulted 03/11/17 23:35 Throat Group A Streptococcus Screen - Preliminary NO BETA STREPTOCOCCI ISOLATED AT 24 H... Resulted 03/12/17 00:07 Urine Clean Catch Urine Culture Pending Received Result Diagram: 03/11/170 03/11/17 2320 Imaging Last Impressions Chest X-Ray 03/11/17 5068 Signed Impressions: Service Date/Time: February 23:20 - CONCLUSION: No acute cardiopulmonary disease identified. Yusuf Baugh MD Septic Shock Reassessment Septic shock perfusion: reassessment completed Caprini VTE Risk Assessment Caprini VTE Risk Assessment: Mod/High Risk (score >= 2) Caprini Risk Assessment Model Point Value = 1 Point Value = 2 Point Value = 3 Point Value = 5 Age 41-60 Minor surgery BMI > 25 kg/m2 Swollen legs Varicose veins or History of unexplained or recurrent spontaneous Oral contraceptives or hormone replacement Sepsis (< 1 month) Serious lung disease, including pneumonia (< 1 month) Abnormal pulmonary function Acute myocardial infarction Congestive heart failure (< 1 month) History of inflammatory bowel disease Medical patient at bed rest Age 61-74 Arthroscopic surgery Major open surgery (> 45 min) Laparoscopic surgery (> 45 min) Malignancy Confined to bed (> 72 hours) Immobilizing plaster cast Central venous access Age >= 75 History of VTE Family history of VTE Factor V Leiden Prothrombin [id number] Lupus anticoagulant Anticardiolipin antibodies Elevated serum homocysteine Heparin-induced thrombocytopenia Other congenital or acquired thrombophilia Stroke (< 1 month) Elective arthroplasty Hip, pelvis, or leg fracture Acute spinal cord injury (< 1 month) Prophylaxis Regimen Total Risk Factor Score Risk Level Prophylaxis Regimen 0-1 Low Early ambulation 2 Moderate Order ONE of the following: *Sequential Compression Device (SCD) *Heparin 5000 units SQ BID 3-4 Higher Order ONE of the following medications: *Heparin 5000 units SQ TID *Enoxaparin/Lovenox 40 mg SQ daily (WT < 150 kg, CrCl > 30 mL/min) *Enoxaparin/Lovenox 30 mg SQ daily (WT < 150 kg, CrCl > 10-29 mL/min) *Enoxaparin/Lovenox 30 mg SQ BID (WT < 150 kg, CrCl > 30 mL/min) AND/OR *Sequential Compression Device (SCD) 5 or more Highest Order ONE of the following medications: *Heparin 5000 units SQ TID (Preferred with Epidurals) *Enoxaparin/Lovenox 40 mg SQ daily (WT < 150 kg, CrCl > 30 mL/min) *Enoxaparin/Lovenox 30 mg SQ daily (WT < 150 kg, CrCl > 10-29 mL/min) *Enoxaparin/Lovenox 30 mg SQ BID (WT < 150 kg, CrCl > 30 mL/min) AND *Sequential Compression Device (SCD) Assessment and Plan Problem List: (1) Sickle cell anemia with pain ICD Code: D57.00 - Sickle cell anemia with pain Status: Acute Plan: Follow counts Follows up with Dr. Shea Continue with pain management with IV fluids IV narcotics as well as home regimen of Hydrea, aspirin and (2) Sepsis ICD Code: A41.9 - Sepsis, unspecified organism Status: Acute Plan: Probably due to urinary tract infection, continue Rocephin empirically and follow cultures Follow blood cultures as well Continue follow-up for elevated heart rate, leukocytosis and temperature 102 (3) HTN (hypertension) ICD Code: I10 - Essential (primary) hypertension Status: Chronic Plan: Continue [facility] Physician Certification 2 Midnight Certification Type: Admission for Inpatient Services Order for Inpatient Services The services are ordered in accordance with Medicare regulations or non- Medicare payer requirements, as applicable. In the case of services not specified as inpatient-only, they are appropriately provided as inpatient services in accordance with the 2-midnight benchmark. Estimated LOS (days): 4 4 days is the estimated time the patient will need to remain in the hospital, assuming treatment plan goals are met and no additional complications. Post-Hospital Plan: Home Problem Qualifiers (1) Sepsis: Qualified Codes: A41.9 - Sepsis, unspecified organism Binta Guzmán MD Mar 12, 2017 14:04
[2017-03-12] MEDS ORDERED: SODIUM CHLOR 0.9% 1000 ML INJ 1,000 ML IV ONE ×2 (15:15)
[2017-03-12] MEDS: amLODIPine BESYLATE 5 MG TAB PO SCH (15:56)
[2017-03-12] MEDS: HYDROXYUREA 500 MG CAP PO SCH (17:33)
[2017-03-12 18:38] LABS: MEAN CELL VOLUME 83.4 FL (80.0-100.0); MEAN CORPUSCULAR HEMOGLOBIN 29.3 PG (27.0-34.0); MEAN CORPUSCULAR HGB CONC 35.2 % (32.0-36.0); PLATELET COUNT 275 TH/MM3 (150-450); RED BLOOD COUNT 1.83 MIL/MM3 (4.00-5.30); RED CELL DISTRIBUTION WIDTH 22.5 % (11.6-17.2); WHITE BLOOD COUNT 14.9 TH/MM3 (4.0-11.0)
[2017-03-12 18:42] LABS: HEMO FLAGS AUTO DIFF
[2017-03-12 18:46] LABS: HEMATOCRIT 15.3 % (35.0-46.0)
[2017-03-12 18:52] LABS: POTASSIUM 4.3 MEQ/L (3.5-5.1)
[2017-03-12 18:55] LABS: BICARBONATE 23.6 MEQ/L (21.0-32.0)
[2017-03-12 19:03] LABS: CORRECTED NUCLEATED RBC 2 /100 WBC (0-0); EOSINOPHILS 5 % (0-4); NEUTROPHIL # MANUAL DIFF 9.5 TH/MM3 (1.8-7.7); POLYS (SEG NEUTROPHILS) 64 % (16-70); WBC DIFF SAMPLE 100
[2017-03-12 19:04] LABS: SICKLE CELLS 3+ (NORMAL)
[2017-03-12 19:05] LABS: OVALOCYTES 1+ (NORMAL); PLATELET ESTIMATE SMEAR NORMAL (NORMAL); PLATELET MORPHOLOGY NORMAL (NORMAL); SCAN/DIFF FINAL DIFF MANUAL; STOMATOCYTES 1+ (NORMAL)
[2017-03-12] MEDS ORDERED: Vancomycin Consult Pharmacy 1 EA OTHER SCH (19:15)
[2017-03-12] MEDS ORDERED: SODIUM CHLOR 0.9% 250 ML INJ 250 ML IV ONE (19:15)
[2017-03-12] MEDS ORDERED: FUROSEMIDE 20 MG/2 ML VIAL IV PUSH ONE (19:15)
[2017-03-12] MEDS: VANCOMYCIN INJ 1,000 MG in SODIUM CHLOR 0.9% 250 ML INJ 250 ML IV SCH (20:23)
[2017-03-12] MEDS: diphenhydrAMINE HCL 25 MG CAP PO PRN (21:56)
[2017-03-13] VITALS (8 sets, daily range): BP systolic 103–130; BP diastolic 68–84; PULSE 94–122; RESP 18–20; TEMP 96.6–98.2; O2SAT 93–100
[2017-03-13] MEDS: HYDROmorphone HCL PF 2 MG/ML VIAL IV PUSH PRN ×8 (00:40→23:04)
[2017-03-13] MEDS: diphenhydrAMINE HCL 25 MG CAP PO PRN (03:14)
[2017-03-13] MEDS: ONDANSETRON HCL 4 MG/2 ML VIAL IVP PRN ×3 (03:15→20:10)
[2017-03-13] MEDS: ACETAMINOPHEN 325 MG TAB PO PRN (03:15)
[2017-03-13] MEDS: DOCUSATE SODIUM 50 MG/SENNA 8.6 MG TAB PO SCH ×2 (08:35→20:10)
[2017-03-13] MEDS: SODIUM CHLORIDE 0.9% FLUSH 10 ML FLUSH IV FLUSH SCH ×2 (09:00→20:10)
[2017-03-13] MEDS: HYDROXYUREA 500 MG CAP PO SCH ×3 (09:06→17:39)
[2017-03-13] MEDS: FOLIC ACID 1 MG TAB PO SCH (09:07)
[2017-03-13] MEDS: ASPIRIN 81 MG CHEW TAB CHEW SCH (09:07)
[2017-03-13] MEDS: amLODIPine BESYLATE 5 MG TAB PO SCH (09:07)
[2017-03-13] MEDS: VANCOMYCIN INJ 1,000 MG in SODIUM CHLOR 0.9% 250 ML INJ 250 ML IV SCH ×2 (09:08→20:06)
[2017-03-13 10:58] LABS: HEMATOCRIT 29.6 % (35.0-46.0); MEAN CELL VOLUME 85.9 FL (80.0-100.0); MEAN CORPUSCULAR HGB CONC 32.6 % (32.0-36.0); PLATELET COUNT 310 TH/MM3 (150-450); RED BLOOD COUNT 3.45 MIL/MM3 (4.00-5.30); RED CELL DISTRIBUTION WIDTH 20.3 % (11.6-17.2); WHITE BLOOD COUNT 13.9 TH/MM3 (4.0-11.0)
[2017-03-13 11:09] LABS: ALT (GPT) 29 U/L (10-53); ANION GAP 9 MEQ/L (5-15); AST (GOT) 59 U/L (15-37); BICARBONATE 26.5 MEQ/L (21.0-32.0); BLOOD UREA NITROGEN 6 MG/DL (7-18); CHLORIDE 104 MEQ/L (98-107); GLOMERULAR FILTRATION RATE 69 ML/MIN (>89); POTASSIUM 3.3 MEQ/L (3.5-5.1); SODIUM (NA) 139 MEQ/L (136-145)
[2017-03-13 11:15] LABS: HEMO FLAGS AUTO DIFF
[2017-03-13 11:18] LABS: BANDS 3 % (0-6); BASOPHILS 1 % (0-2); CORRECTED NUCLEATED RBC 5 /100 WBC (0-0); CORRECTED WBC 13.2 TH/MM3 (4.0-11.0); EOSINOPHILS 8 % (0-4); NEUTROPHIL # MANUAL DIFF 6.5 TH/MM3 (1.8-7.7); POLYS (SEG NEUTROPHILS) 46 % (16-70); WBC DIFF SAMPLE 100
[2017-03-13 11:20] LABS: OVALOCYTES 1+ (NORMAL); PLATELET ESTIMATE SMEAR NORMAL (NORMAL); ROULEAUX PRESENT (NORMAL); SICKLE CELLS 2+ (NORMAL); SPHEROCYTES OCC (NORMAL); STOMATOCYTES 1+ (NORMAL); TARGET CELLS 1+ (NORMAL)
[2017-03-13 11:21] LABS: PLATELET MORPHOLOGY NORMAL (NORMAL); SCAN/DIFF FINAL DIFF MANUAL
[2017-03-13 11:25] LABS: ALKALINE PHOSPHATASE 127 U/L (45-117); TOTAL BILIRUBIN ADULT 1.5 MG/DL (0.2-1.0)
--- NOTE | 2017-03-13 13:38 | HHI.PR ---
Subjective Remarks Patient seen in room, heart rate better, looks better After transfusion hemoglobin is improved. Patient complaining of vaginal itching similar to previous yeast infections and request Diflucan Objective Vitals Vital Signs Date Time Temp Pulse Resp B/P (MAP) Pulse Ox O2 Delivery O2 Flow Rate FiO2 03/13/17 12:00 97.4 110 20 125/76 (92) 93 03/13/17 08:00 98.2 100 18 130/84 (99) 100 03/13/17 04:08 94 03/13/17 04:01 96.6 98 18 117/83 100 03/13/17 04:00 96.6 98 18 117/83 (94) 100 03/13/17 03:35 97.1 122 18 103/73 99 03/12/17 22:45 98.8 110 18 115/71 97 03/12/17 22:25 98.9 122 18 118/77 99 03/12/17 20:00 101.1 133 16 110/86 (94) 85 03/12/17 20:00 106 03/12/17 16:00 102.4 03/12/17 16:00 102.4 126 16 129/75 (93) 91 I/O 03/12/17 03/12/17 03/12/17 03/13/17 03/13/17 03/13/17 07:00 15:00 23:00 07:00 15:00 23:00 Intake Total 2100 ml 425 ml 1250 ml 1180 ml 4050 ml Balance 2100 ml 425 ml 1250 ml 1180 ml 4050 ml Intake Oral 425 ml 680 ml IV Total 2100 ml 1250 ml 3250 ml Packed Cells 400 ml 400 ml Blood Product IV Normal Saline Flush 100 ml 400 ml # Voids 2 3 4 # Bowel Movements 0 Result Diagram: 03/13/17 1038 03/13/17 1038 Objective Remarks GENERAL: This is a well-nourished, well-developed patient, in no apparent distress. CARDIOVASCULAR: Regular rate and rhythm without murmurs, gallops, or rubs. RESPIRATORY: Clear to auscultation. Breath sounds equal bilaterally. No wheezes , rales, or rhonchi. GASTROINTESTINAL: Abdomen soft, non-tender, nondistended. Normal active bowel sounds MUSCULOSKELETAL: Extremities without clubbing, cyanosis, or edema. NEURO: Alert & Oriented x4 to person, place, time, situation. Moves all ext x4 A/P Problem List: (1) Sickle cell anemia with pain ICD Code: D57.00 - Sickle cell anemia with pain Status: Acute Plan: hg 5.6 yesterday, better today greater than [address] Shea Continue with pain management with IV fluids IV narcotics as well as home regimen of Hydrea, aspirin (2) Sepsis ICD Code: A41.9 - Sepsis, unspecified organism Status: Acute Plan: Probably due to urinary tract infection, continue Rocephin empirically and follow cultures Follow blood cultures as well Continue follow-up for elevated heart rate, leukocytosis and temperature 102 (3) HTN (hypertension) ICD Code: I10 - Essential (primary) hypertension Status: Chronic Plan: Continue Norvasc (4) Yeast vaginitis ICD Code: B37.3 - Candidiasis of vulva and vagina Plan: Diflucan Problem Qualifiers (1) Sepsis: Qualified Codes: A41.9 - Sepsis, unspecified organism Binta Guzmán MD Mar 13, 2017 13:38
[2017-03-13] MEDS ORDERED: FLUCONAZOLE 100 MG TAB PO ONE (13:45)
[2017-03-13] MEDS: SODIUM CHLOR 0.9% 1000 ML INJ 1,000 ML IV SCH (16:42)
--- NOTE | 2017-03-13 19:06 | MB ---
cc: BRITTNEY GUZMÁN MD,SCOTT Ma M.D. DATE OF CONSULTATION 03/13/[address] Brittney Guzmán CHIEF COMPLAINT Dr. Guzmán requests a consultation for Ms. Flores regarding sickle-cell disease and acute vasoocclusive pain crises. HISTORY OF PRESENT ILLNESS Ms. Flores is a 36-year-old woman with sickle-cell disease and frequent vasoocclusive pain crisis. She had recent exacerbation despite our efforts to give her IV fluid hydration, pain medication in clinic. She was admitted with typical symptoms for acute vasoocclusive pain crisis. She denies any precipitating event. Her hemoglobin was 7.9 on admission. She is not on her period. Her hemoglobin the following day decreased to 5.4. Since then, she has been transfused. She tolerated transfusion well. She feels better. Her hemoglobin improved to 9.7. She was maintained on hydroxyurea and is tolerating it well. She describes mild nausea. She was febrile on admission with T-max of 100.2. She was started on antibiotic therapy. Her cultures are negative so far. She denies any localizing symptoms. She has some mild nausea. She has no urinary complaints, but she does feel raw in terms of initiating vaginal yeast infections since starting her antibiotic therapy. Her chest x-ray was negative. The rest of her review of systems is negative. There is no sick contacts at home. Her and son are well. PAST MEDICAL HISTORY 1. Avascular necrosis of hip 2. Chronic pain, 3. Chronic renal insufficiency 4. Iron overload 5. Scoliosis 6. Sickle-cell disease 7. Multiple venous thromboembolic events. PAST SURGICAL HISTORY 1. Hip replacement 2010. 2. Mostts-T-Eadw placement 3. Left hip replacement 2014, 4. Cholecystectomy 2002 ALLERGIES MORPHINE SULFATE TORADOL FAMILY HISTORY Significant for both parents with trait. SOCIAL HISTORY Denies any tobacco, alcohol or illicit drug use. She is recently . She has a step-son. PHYSICAL EXAMINATION VITAL SIGNS: Temperature 97.4, heart rate 110, respiratory rate 20, blood pressure 125/76, saturation 93% GENERAL: Mrs. Flores is a pleasant 36-year-old woman in no acute distress. She is resting comfortably. HEENT: Her pupils are reactive to light and accommodation. Sclerae are mildly icteric. Oropharynx is clear. NECK: Supple. LUNGS: Clear to auscultation. CARDIOVASCULAR: Tachycardia. ABDOMEN: Benign LOWER EXTREMITIES: No edema. NEUROLOGIC: Nonfocal. MEDICATIONS Current, 1. Diflucan x1 2. Aspirin. 3. Folic acid. 4. Ceftriaxone. 5. Vancomycin. 6. Hydroxyurea. 7. Norvasc 8. Ondansetron p.r.n. 9. Hydromorphone p.r.n. LABORATORY DATA Potassium of 3.3, bilirubin 1.5, AST 59, ALT 29, alkaline phosphatase 127, albumin 3.3, hemoglobin 9.7. ASSESSMENT/PLAN Ms. Flores is a 36-year-old woman well-known patient with sickle-cell disease and frequent vasoocclusive pain crisis. She has chronic pain. She is admitted for acute vasoocclusive pain crisis. She is on Hydrea maintenance. Her course is complicated by iron overload for which she is on Jadenu. We discussed plans of continued support with IV fluid hydration and pain medication. Her IV fluid will be decreased to 100 mg. We will continue to monitor her heart rate. She has no evidence of heart failure. There are no crackles. No leg edema. Interestingly, her hemoglobin has improved but her heart rate has not come down. She is afebrile. She feels better than she did previously. Blood cultures will be followed and antibiotic therapy switched to oral once cultures negative for her next day or two. She denies any localizing symptoms. She denies any problems associated with her port. Her pain regimen is appropriate. She feels that she has good control at current pain medication dose. She is on aspirin prophylaxis. She is encouraged to ambulate in the room. She has excellent support from family, her son and as were at bedside. LDH will be monitored. She still has leukocytosis. I will need to hold the Hydrea. No neutropenia. We will monitor her retic count. MD SUPA Sparrow/ /5:39 PM /6:45 PM LUIS FELIPE
[2017-03-13] MEDS: cefTRIAXone INJ 1,000 MG in SODIUM CHLORIDE 0.9% INJ 100 ML IV SCH ×2 (23:00→23:04)
[2017-03-14 00:03] VITALS: BP 141/84; PULSE 117; RESP 22; O2SAT 93
[2017-03-14] MEDS: HYDROmorphone HCL PF 2 MG/ML VIAL IV PUSH PRN ×8 (02:38→21:41)
[2017-03-14] MEDS: SODIUM CHLOR 0.9% 1000 ML INJ 1,000 ML IV SCH ×2 (06:06→14:09)
[2017-03-14 07:41] LABS: HEMATOCRIT 27.8 % (35.0-46.0); MEAN CELL VOLUME 84.5 FL (80.0-100.0); MEAN CORPUSCULAR HEMOGLOBIN 27.9 PG (27.0-34.0); PLATELET COUNT 304 TH/MM3 (150-450); RED BLOOD COUNT 3.29 MIL/MM3 (4.00-5.30); RED CELL DISTRIBUTION WIDTH 20.8 % (11.6-17.2); WHITE BLOOD COUNT 11.6 TH/MM3 (4.0-11.0)
[2017-03-14 07:42] LABS: POTASSIUM 3.9 MEQ/L (3.5-5.1)
[2017-03-14 07:45] LABS: BICARBONATE 26.5 MEQ/L (21.0-32.0)
[2017-03-14] MEDS ORDERED: PHARMACY ORDERED LAB ONE (07:45)
[2017-03-14 07:50] LABS: INDIRECT BILIRUBIN 0.8 MG/DL (0.0-0.8); TOTAL BILIRUBIN ADULT 1.1 MG/DL (0.2-1.0)
[2017-03-14 07:57] LABS: HEMO FLAGS AUTO DIFF
[2017-03-14 08:00] VITALS: BP 124/77; PULSE 124; RESP 16; TEMP 99.1; O2SAT 95
[2017-03-14 08:22] LABS: BANDS 2 % (0-6); CORRECTED NUCLEATED RBC 2 /100 WBC (0-0); EOSINOPHILS 5 % (0-4); POLYS (SEG NEUTROPHILS) 50 % (16-70); WBC DIFF SAMPLE 100
[2017-03-14 08:23] LABS: OVALOCYTES 1+ (NORMAL); PLATELET ESTIMATE SMEAR NORMAL (NORMAL); PLATELET MORPHOLOGY NORMAL (NORMAL); ROULEAUX PRESENT (NORMAL); SCAN/DIFF FINAL DIFF MANUAL; SICKLE CELLS 2+ (NORMAL); TARGET CELLS 1+ (NORMAL)
--- NOTE | 2017-03-14 08:42 | HHI.PR ---
Subjective Remarks Patient seen and evaluated for sickle cell disease with acute crisis. Complaining of nausea today. Hemoglobin improved and heart rate somewhat better although still tachycardic. She is ambulatory. Objective Vitals Vital Signs Date Time Temp Pulse Resp B/P (MAP) Pulse Ox O2 Delivery O2 Flow Rate FiO2 03/14/17 04:01 03/14/17 00:03 117 22 141/84 (103) 93 03/13/17 21:21 98.1 108 18 110/68 (82) 93 03/13/17 16:00 97.9 112 18 109/68 (82) 98 03/13/17 12:00 97.4 110 20 125/76 (92) 93 I/O 03/13/17 03/13/17 03/13/17 03/14/17 03/14/17 03/14/17 07:00 15:00 23:00 07:00 15:00 23:00 Intake Total 1180 ml 4050 ml 1200 ml Balance 1180 ml 4050 ml 1200 ml Intake Oral 680 ml 1200 ml IV Total 3250 ml Packed Cells 400 ml 400 ml Blood Product IV Normal Saline Flush 100 ml 400 ml # Voids 4 4 # Bowel Movements 0 Result Diagram: 03/14/17 0600 03/14/17 0600 Objective Remarks GENERAL: This is a well-nourished, well-developed patient, in no apparent distress. CARDIOVASCULAR: Regular rate and rhythm without murmurs, gallops, or rubs. RESPIRATORY: Clear to auscultation. Breath sounds equal bilaterally. No wheezes , rales, or rhonchi. GASTROINTESTINAL: Abdomen soft, non-tender, nondistended. Normal active bowel sounds MUSCULOSKELETAL: Extremities without clubbing, cyanosis, or edema. NEURO: Alert & Oriented x4 to person, place, time, situation. Moves all ext x4 A/P Problem List: (1) Sickle cell anemia with pain ICD Code: D57.00 - Sickle cell anemia with pain Status: Acute Plan: Hemoglobin improved after transfusion Hematology evaluation appreciated Continue with pain management with IV fluids IV Dilaudid home regimen of aspirin (2) Sepsis ICD Code: A41.9 - Sepsis, unspecified organism Status: Acute Plan: Urine Cultures are negative at this time Blood cultures negative at 2 days Chest x-ray unremarkable No fever Follow off of antibiotics (3) HTN (hypertension) ICD Code: I10 - Essential (primary) hypertension Status: Chronic Plan: Continue Norvasc (4) Yeast vaginitis ICD Code: B37.3 - Candidiasis of vulva and vagina Plan: Diflucan Problem Qualifiers (1) Sepsis: Qualified Codes: A41.9 - Sepsis, unspecified organism Binta Guzmán MD Mar 14, 2017 08:42
[2017-03-14] MEDS: ONDANSETRON HCL 4 MG/2 ML VIAL IVP PRN ×3 (08:56→21:49)
[2017-03-14] MEDS: ASPIRIN 81 MG CHEW TAB CHEW SCH (09:04)
[2017-03-14] MEDS: amLODIPine BESYLATE 5 MG TAB PO SCH (09:04)
[2017-03-14] MEDS: DOCUSATE SODIUM 50 MG/SENNA 8.6 MG TAB PO SCH ×2 (09:04→21:00)
[2017-03-14] MEDS: FOLIC ACID 1 MG TAB PO SCH (09:04)
[2017-03-14] MEDS: SODIUM CHLORIDE 0.9% FLUSH 10 ML FLUSH IV FLUSH SCH ×2 (09:05→21:00)
[2017-03-14 10:06] LABS: RETIC % 10.8 % (0.4-3.0); REVIEW FLAG FINAL
[2017-03-14 12:00] VITALS: BP 118/75; PULSE 111; RESP 20; TEMP 98.1; O2SAT 93
[2017-03-14 16:00] VITALS: BP 114/77; PULSE 100; RESP 20; TEMP 99; O2SAT 93
[2017-03-14 20:00] VITALS: BP 111/68; PULSE 104; RESP 16; TEMP 98.4; O2SAT 94
[2017-03-15] VITALS: BP 116/76; PULSE 104; RESP 16; TEMP 98.4; O2SAT 91
[2017-03-15] MEDS: SODIUM CHLOR 0.9% 1000 ML INJ 1,000 ML IV SCH ×2 (00:46→09:17)
[2017-03-15] MEDS: HYDROmorphone HCL PF 2 MG/ML VIAL IV PUSH PRN ×3 (00:46→09:19)
[2017-03-15] MEDS: ONDANSETRON HCL 4 MG/2 ML VIAL IVP PRN (05:40)
[2017-03-15 08:00] VITALS: BP 130/85; PULSE 112; RESP 16; TEMP 99.4; O2SAT 95
[2017-03-15] MEDS: SODIUM CHLORIDE 0.9% FLUSH 10 ML FLUSH IV FLUSH SCH (09:00)
[2017-03-15] MEDS: DOCUSATE SODIUM 50 MG/SENNA 8.6 MG TAB PO SCH (09:00)
[2017-03-15] MEDS: FOLIC ACID 1 MG TAB PO SCH (09:18)
[2017-03-15] MEDS: ASPIRIN 81 MG CHEW TAB CHEW SCH (09:18)
[2017-03-15] MEDS: amLODIPine BESYLATE 5 MG TAB PO SCH (09:18)
[2017-03-15] MEDS ORDERED: SM C1CRE VAGINAL (10:30)
[2017-03-15] MEDS ORDERED: METR.75%V VAGINAL (10:30)
--- NOTE | 2017-03-15 10:32 | HHI.DCPOC ---
Discharge Care Plan Diagnosis: (1) Yeast vaginitis (2) Sickle cell anemia with pain Goals to Promote Your Health * To prevent worsening of your condition and complications * To maintain your health at the optimal level Directions to Meet Your Goals Take your medications as prescribed Follow your dietary instruction Follow activity as directed Keep your appointments as scheduled Take your immunizations and boosters as scheduled If your symptoms worsen call your PCP, if no PCP go to Urgent Care Center or Emergency Room Smoking is Dangerous to Your Health. Avoid second hand smoke Call the 24-hour hour crisis hotline for domestic abuse at Binta Guzmán MD Mar 15, 2017 10:32
--- NOTE | 2017-03-15 10:42 | HHI.DS ---
Discharge Summary Admission Date Mar 12, 2017 at 00:45 Discharge Date: Mar 15, 2017 Admitting Diagnosis vaso-occlusive crisis, sepsis, UTI (1) Sickle cell anemia with pain ICD Code: D57.00 - Sickle cell anemia with pain Status: Acute (2) Sepsis ICD Code: A41.9 - Sepsis, unspecified organism Status: Acute (3) HTN (hypertension) ICD Code: I10 - Essential (primary) hypertension Status: Chronic (4) Yeast vaginitis ICD Code: B37.3 - Candidiasis of vulva and vagina Procedures none Brief History - From Admission This patient's 36-year-old female with a known history of sickle cell disease. She had come to the emergency room yesterday complaining of diffuse pain all over. Recent she had wisdom tooth extraction and was given clindamycin. She came to the emergency room shortly after that complaining of pain crisis. Apparently with fluids and a short course the pain medicine she went home from the emergency room. She returns today with fever 102, leukocytosis and tachycardia. She appears dehydrated and membranes are dry and she has acute kidney injury. There is evidence of urinary tract infection and she has been given empiric Rocephin. Patient been admitted for sepsis with UTI. Her pain recurrent and intermittent and diffuse. It is moderate to severe and usually improved with IV Dilaudid. She takes oral Dilaudid at home but this was not effective. She has been admitted to the hospital for further treatment of sepsis with sickle cell associated pain. CBC/BMP: 03/14/17 0600 03/14/17 0600 Significant Findings Laboratory Tests Test 03/12/17 18:29 03/13/17 10:38 03/14/17 06:00 White Blood Count 14.9 TH/MM3 (4.0-11.0) 13.9 TH/MM3 (4.0-11.0) 11.6 TH/MM3 (4.0-11.0) Red Blood Count 1.83 MIL/MM3 (4.00-5.30) 3.45 MIL/MM3 (4.00-5.30) 3.29 MIL/MM3 (4.00-5.30) Hemoglobin 5.4 GM/DL (11.6-15.3) 9.7 GM/DL (11.6-15.3) 9.2 GM/DL (11.6-15.3) Hematocrit 15.3 % (35.0-46.0) 29.6 % (35.0-46.0) 27.8 % (35.0-46.0) Red Cell Distribution Width 22.5 % (11.6-17.2) 20.3 % (11.6-17.2) 20.8 % (11.6-17.2) Eosinophils % 5 % (0-4) 8 % (0-4) 5 % (0-4) Neutrophils # (Manual) 9.5 TH/MM3 (1.8-7.7) Nucleated Red Blood Cells 2 /100 WBC (0-0) 5 /100 WBC (0-0) 2 /100 WBC (0-0) Sickle Cells 3+ (NORMAL) 2+ (NORMAL) 2+ (NORMAL) Ovalocytes 1+ (NORMAL) 1+ (NORMAL) 1+ (NORMAL) Stomatocytes 1+ (NORMAL) 1+ (NORMAL) Blood Urea Nitrogen 6 MG/DL (7-18) 6 MG/DL (7-18) 4 MG/DL (7-18) Random Glucose 108 MG/DL (74-106) Calcium Level 7.8 MG/DL (8.5-10.1) 8.3 MG/DL (8.5-10.1) 8.2 MG/DL (8.5-10.1) Chloride Level 110 MEQ/L (98-107) Estimat Glomerular Filtration Rate 81 ML/MIN (>89) 69 ML/MIN (>89) 85 ML/MIN (>89) Corrected White Blood Count 13.2 TH/MM3 (4.0-11.0) Basophilic Stippling FAINT (NORMAL) FAINT (NORMAL) Spherocytes OCC (NORMAL) Target Cells 1+ (NORMAL) 1+ (NORMAL) Rouleau PRESENT (NORMAL) PRESENT (NORMAL) Creatinine 1.10 MG/DL (0.50-1.00) Albumin 3.3 GM/DL (3.4-5.0) Alkaline Phosphatase 127 U/L (45-117) Aspartate Amino Transf (AST/SGOT) 59 U/L (15-37) Total Bilirubin 1.5 MG/DL (0.2-1.0) 1.1 MG/DL (0.2-1.0) Potassium Level 3.3 MEQ/L (3.5-5.1) Monocytes % 14 % (0-8) Reticulocyte Count 10.8 % (0.4-3.0) Absolute Reticulocyte Count 328.6 MIL/L (20.0-150.0) Lactate Dehydrogenase 516 U/L (84-246) Direct Bilirubin 0.3 MG/DL (0.0-0.2) Vancomycin Level Trough 19.5 MCG/ML (5.0-10.0) Imaging Last Impressions Chest X-Ray 03/11/17 [id number] Signed Impressions: Service Date/Time: February 23:20 - CONCLUSION: No acute cardiopulmonary disease identified. Yusuf Baugh MD PE at Discharge GENERAL: This is a well-nourished, well-developed patient, in no apparent distress. CARDIOVASCULAR: Regular rate and rhythm without murmurs, gallops, or rubs. RESPIRATORY: Clear to auscultation. Breath sounds equal bilaterally. No wheezes , rales, or rhonchi. GASTROINTESTINAL: Abdomen soft, non-tender, nondistended. Normal active bowel sounds MUSCULOSKELETAL: Extremities without clubbing, cyanosis, or edema. NEURO: Alert & Oriented x4 to person, place, time, situation. Moves all ext x4 Pt update on day of discharge patient seen in follow up for scd with pain crisis Better, but still complains of vaginal d/c Hospital Course Patient was seen and treated for sickle cell disease with acute crisis. She did well with IV hydration, she did require packed red blood cells in transfusion. She was seen by hematology. Her heart rate and temperature improved. Patient requested to be discharged home. She did also complain of some vaginitis. She thought it was yeast infection and had a lot of discharge. She did on exam have some white discharge. She was given metronidazole and culture resolved. Her leukocytosis improved Pt Condition on Discharge: Good Discharge Disposition: Discharge Home Discharge Time: <= 30 minutes Discharge Instructions DIET: Follow Instructions for: As Tolerated, No Restrictions Activities you can perform: Regular-No Restrictions Follow up Referrals: [facility]ER - 1 Month New Medications: Clotrimazole Vaginal (Sm Clotrimazole Vaginal) 1 % Cre 1 APPL VAGINAL HS for Infection, #6 TUBE Metronidazole Vaginal Gel (Vandazole Vaginal Gel) 0.75 % Gel 1 APPL VAGINAL BID for Infection, #12 TUBE Continued Medications: Amlodipine (Amlodipine) 5 Mg Tab 5 MG PO DAILY for Blood Pressure Management, #30 TAB 0 Refills Aspirin (Aspirin) 81 Mg Chew 81 MG CHEW DAILY for Blood Clot Prevention, TAB 0 Refills Deferasirox (Jadenu) 90 Mg Tab DAILY Folic Acid (Folic Acid) 400 Mcg Tab 1 MG PO DAILY for Nutritional Supplement, TAB 0 Refills Hydrocodone-Acetaminophen (Hydrocodone-Acetaminophen) 5-325 mg Tab 2 TAB PO Q6H PRN for PAIN, TAB 0 Refills Hydromorphone (Dilaudid) 4 Mg Tab 4 MG PO Q6H PRN for Pain Management, TAB 0 Refills Hydroxyurea (Hydrea) 500 Mg Cap 500 MG PO TID for SICKLE CELL, CAP 0 Refills Binta Guzmán MD Mar 15, 2017 10:42
[2017-03-15] MEDS ORDERED: metroNIDAZOLE 0.75% VAG GEL 70 GM TUBE VAGINAL SCH (12:00)
[2017-03-15] MEDS ORDERED: CLOTRIMAZOLE 1% VAG CREAM 45 GM TUBE VAGINAL SCH (21:00)
== END 2017-03-15 12:40 | disposition home or self-care (01) | DRG 871 ==
LOC: PHED 22:39 → UNDOADMIN 03-12 00:45 → PHEDA 03-12 00:45 → PH3B 03-12 00:55 → PHEDA 03-12 00:55 → PH3A 03-12 02:49
PROVIDERS: ADMIT Hospitalist; ATTEND Hospitalist
PROC: 30233N1 Transfusion of Nonautologous Red Blood Cells into Peripheral Vein, Percutaneous Approach (ICD-10-PCS; principal; 2017-03-12)
DX: A41.9 Sepsis, unspecified organism (principal); D57.00 Hb-SS disease with crisis, unspecified; N17.9 Acute kidney failure, unspecified; E83.111 Hemochromatosis due to repeated red blood cell transfusions; B37.3 Candidiasis of vulva and vagina; N39.0 Urinary tract infection, site not specified; E86.0 Dehydration; N18.9 Chronic kidney disease, unspecified; I12.9 Hypertensive chronic kidney disease with stage 1 through stage 4 chronic kidney disease, or unspecified chronic kidney disease; Z86.718 Personal history of other venous thrombosis and embolism; Z88.5 Allergy status to narcotic agent; Z96.643 Presence of artificial hip joint, bilateral
CPT/HCPCS: 36430; 71010; 80048; 80053; 80202; 81001; 82247; 82248; 83615; 84702; 85007; 85027; 85044; 85660; 86850; 86900; 86901; 86920; 86922; 87040; 87081; 87086; 87804; 87880; 96361; 96374; 96375; 96376; J0696; J1170; J1200; J1940; J2405; J3370; J7030; J7050; P9016

== ENCOUNTER 2017-04-01 19:45 | Emergency (ER) | payer OTHER, MEDICAID ==
[~2017-04-01 19:45] MED LIST changes: -AMOX500C PO; -CLIN300C5 PO; +METR.75%V VAGINAL; +SM C1CRE VAGINAL
[2017-04-01 19:49] VITALS: BP 131/77; PULSE 100; RESP 20; TEMP 99
--- NOTE | 2017-04-01 20:37 | PD ---
HPI Chief Complaint: Sickle Cell Time Seen by Provider: 20:18 Travel History International Travel<30 days: No Contact w/Intl Traveler<30days: No Traveled to known affect area: No History of Present Illness HPI The patient is a 36-year-old female with a history of sickle cell, well-known to the emergency department, who complains of cough for 6 days and chest pain on the right lateral chest for 2 days. She denies any fever. She denies any shortness of breath. She states the pain is related to her sickle cell. She usually gets Dilaudid and Benadryl IV when she calms. She also gets Zofran. The patient insists that there is no possibility of . PFSH Past Medical History Hx Anticoagulant Therapy: Yes (ASA) Anemia: Yes (SICKLE CELL) Arthritis: No Asthma: No Autoimmune Disease: No Blood Disorders: Yes (SICKLE CELL) Anxiety: No Depression: No Heart Rhythm Problems: No Cancer: No Cardiovascular Problems: Yes (htn on meds) High Cholesterol: No Chemotherapy: No Chest Pain: No Congestive Heart Failure: No COPD: No Cerebrovascular Accident: No Diabetes: No Diminished Hearing: No Deep Vein Thrombosis: Yes (HX LEFT ARM ) Endocrine: No Gastrointestinal Disorders: Yes GERD: No Glaucoma: No Genitourinary: Yes Headaches: Yes Hepatitis: No Hiatal Hernia: No Heparin Induced Thrombocytopen: No Hypertension: Yes Immune Disorder: Yes (SICKLE CELL) Implanted Vascular Access Dvce: Yes (POWER INFUSAPORT) Kidney Stones: No Musculoskeletal: Yes (SCOLIOSIS) Neurologic: Yes Psychiatric: No Reproductive: No Respiratory: No Immunizations Current: Yes Migraines: Yes Pneumonia: Yes Radiation Therapy: No Renal Failure: No Seizures: No Sickle Cell Disease: Yes Sleep Apnea: No Thyroid Disease: No Ulcer: No Tetanus Vaccination: < 5 Years PNEUMOCCOCAL Vaccine (Year): 2008 ?: Not LMP: 4 MONTHS AGO Menopausal: No : 5 Para: 2 Miscarriage: 3 : 0 Ovarian Cysts: Yes Past Surgical History Abdominal Surgery: Yes (cholecystectomy) AICD: No Appendectomy: Yes Arteriovenous Shunt: No Body Medical Devices: CATIA IN UPPER BACK Cardiac Surgery: No Cholecystectomy: Yes Ear Surgery: No Endocrine Surgery: No Eye Surgery: No Genitourinary Surgery: No Gynecologic Surgery: No Hysterectomy: No Insulin Pump: No Joint Replacement: Yes (R HIP REPLACEMENT 2011, L HIP 2014) Neurologic Surgery: No Oral Surgery: No Pacemaker: No Thoracic Surgery: No Other Surgery: Yes (INSERTION OF INFUSA PORTX 3) Social History Alcohol Use: Yes (OCCASIONAL WINE) Tobacco Use: No Substance Use: No Allergies-Medications (Allergen,Severity, Reaction): Coded Allergies: ketorolac (Unverified Allergy, Severe, Itching, 04/01/17) morphine (Unverified Allergy, Mild, Swelling, 04/01/17) ibuprofen (Unverified Adverse Reaction, Severe, Urinary Freq (Inc/Dec), 04/01/17) RENAL FAILURE methadone (Unverified Adverse Reaction, Severe, DEPRESSION, 04/01/17) Reported Meds & Prescriptions Reported Meds & Active Scripts Active Vandazole Vaginal Gel (Metronidazole) 0.75 % Gel 1 Appl VAGINAL BID Sm Clotrimazole Vaginal (Clotrimazole Vaginal) 1 % Cre 1 Appl VAGINAL HS Reported Hydrocodone-Acetaminophen 5-325 mg Tab 2 Tab PO Q6H PRN Dilaudid (Hydromorphone HCl) 4 Mg Tab 4 Mg PO Q6H PRN Hydrea (Hydroxyurea) 500 Mg Cap 500 Mg PO TID Folic Acid 400 Mcg Tab 1 Mg PO DAILY Aspirin 81 Mg Chew 81 Mg CHEW DAILY Jadenu (Deferasirox) 90 Mg Tab DAILY Amlodipine (Amlodipine Besylate) 5 Mg Tab 5 Mg PO DAILY Review of Systems Except as stated in HPI: all other systems reviewed are Neg Physical Exam Narrative GENERAL: Patient is alert, oriented 3 in no respiratory distress. Her vital signs show heart rate of 100 and temperature of 99 but otherwise normal. SKIN: Focused skin assessment warm/dry. HEAD: Atraumatic. Normocephalic. EYES: Pupils equal and round. No scleral icterus. No injection or drainage. ENT: No nasal bleeding or discharge. Mucous membranes pink and moist. NECK: Trachea midline. No JVD. CARDIOVASCULAR: Regular rate and rhythm. No murmur appreciated. RESPIRATORY: No accessory muscle use. Scattered rhonchi are heard over the right lateral chest, this is where the patient perceives her pain. Breath sounds equal bilaterally. GASTROINTESTINAL: Abdomen soft, non-tender, nondistended. Hepatic and splenic margins not palpable. MUSCULOSKELETAL: No obvious deformities. No clubbing. No cyanosis. No edema. NEUROLOGICAL: Awake and alert. No obvious cranial nerve deficits. Motor grossly within normal limits. Normal speech. PSYCHIATRIC: Appropriate mood and affect; insight and judgment normal. Data Data Last Documented VS Vital Signs Date Time Temp Pulse Resp B/P (MAP) Pulse Ox O2 Delivery O2 Flow Rate FiO2 04/01/17 20:04 Room Air 04/01/17 19:49 99.0 100 20 131/77 (95) Orders Orders Complete Blood Count With Diff (04/01/17 20:24) Comprehensive Metabolic Panel (04/01/17 20:24) Urinalysis - C+S If Indicated (04/01/17 20:24) Chest, Pa & Lat (04/01/17 20:24) Beta Hcg (Quant/Titer) (04/01/17 20:24) Ondansetron Inj (Zofran Inj) (04/01/17 21:15) Hydromorphone Pf Inj (Dilaudid Pf Inj) (04/01/17 21:15) Diphenhydramine Inj (Benadryl Inj) (04/01/17 21:15) Hydromorphone Pf Inj (Dilaudid Pf Inj) (04/01/17 22:00) Ondansetron Inj (Zofran Inj) (04/01/17 22:00) Labs Laboratory Tests Test 04/01/17 20:34 White Blood Count 10.4 TH/MM3 Red Blood Count 2.94 MIL/MM3 Hemoglobin 8.1 GM/DL Hematocrit 24.9 % Mean Corpuscular Volume 84.7 FL Mean Corpuscular Hemoglobin 27.5 PG Mean Corpuscular Hemoglobin Concent 32.5 % Red Cell Distribution Width 21.6 % Platelet Count 467 TH/MM3 Mean Platelet Volume 8.3 FL CBC Comment AUTO DIFF Differential Total Cells Counted 100 Neutrophils % (Manual) 43 % Lymphocytes % 35 % Monocytes % 7 % Eosinophils % 13 % Basophils % 2 % Neutrophils # (Manual) 4.5 TH/MM3 Nucleated Red Blood Cells 1 /100 WBC Differential Comment FINAL DIFF MANUAL Platelet Estimate HIGH Platelet Morphology Comment NORMAL Sickle Cells 2+ Target Cells 1+ Ovalocytes 1+ Blood Urea Nitrogen 12 MG/DL Creatinine 1.10 MG/DL Random Glucose 84 MG/DL Total Protein 8.2 GM/DL Albumin 3.4 GM/DL Calcium Level 8.5 MG/DL Alkaline Phosphatase 116 U/L Aspartate Amino Transf (AST/SGOT) 43 U/L Alanine Aminotransferase (ALT/SGPT) 31 U/L Total Bilirubin 1.2 MG/DL Sodium Level 140 MEQ/L Potassium Level 3.8 MEQ/L Chloride Level 106 MEQ/L Carbon Dioxide Level 25.9 MEQ/L Anion Gap 8 MEQ/L Estimat Glomerular Filtration Rate 69 ML/MIN Human Chorionic Gonadotropin, Quant 6 MIU/ML MDM Medical Decision Making Medical Screen Exam Complete: Yes Emergency Medical Condition: Yes Medical Record Reviewed: Yes Interpretation(s) The chest x-ray shows no acute disease. The CBC shows a hemoglobin of 8.1 and hematocrit of 24.9 but is otherwise unremarkable. The complete metabolic profile shows a creatinine of 1.1, GFR of 69, GOT of 43 and total bilirubin of 4.2 but is otherwise unremarkable. The beta-hCG is 6 which corresponds to about one week . Differential Diagnosis Acute chest syndrome, pneumonia, viral upper respiratory infection, sickle cell occlusive crisis, narcotic seeking behavior Narrative Course The chest x-ray is normal and the patient appears in minimal acute distress. She is given her Dilaudid, Benadryl and Zofran IV. At this time this appears as a vaso-occlusive crisis. The patient also may be very early . A level of 6 is questionable and may represent dehydration or some other chemical interfering. The beta-hCG needs to be repeated in about 4- 7 days. The patient states he wants her second 1 mg shot of Dilaudid. Diagnosis Primary Impression: Vaso-occlusive sickle cell crisis Additional Impression: Additional Instructions: Follow-up with Dr. Murillo as soon as he can. Get the test repeated in about 4-7 days. Increase your liquid intake. Med/Other Pt SpecificInfo: No Change to Meds Disposition: 01 DISCHARGE HOME Condition: Stable Zhang Conklin MD Apr 01, 2017 20:37
[2017-04-01 20:44] LABS: HEMATOCRIT 24.9 % (35.0-46.0); HEMOGLOBIN 8.1 GM/DL (11.6-15.3); MEAN CELL VOLUME 84.7 FL (80.0-100.0); MEAN CORPUSCULAR HEMOGLOBIN 27.5 PG (27.0-34.0); MEAN CORPUSCULAR HGB CONC 32.5 % (32.0-36.0); MEAN PLATELET VOLUME 8.3 FL (7.0-11.0); PLATELET COUNT 467 TH/MM3 (150-450); RED BLOOD COUNT 2.94 MIL/MM3 (4.00-5.30); RED CELL DISTRIBUTION WIDTH 21.6 % (11.6-17.2); WHITE BLOOD COUNT 10.4 TH/MM3 (4.0-11.0)
--- NOTE | 2017-04-01 20:50 | RADRPT ---
EXAM DATE/TIME: 04/01/2017 20:34 [facility] COMPARISON: CHEST PA & LAT, March 05, 2017, 10:00. INDICATIONS : Chest pain for two days and sickle cell crisis. MEDICAL HISTORY : Deep venous thrombosis. Sickle Cell disease. Hypertension. Pneumonia. Scoliosis SURGICAL HISTORY : Appendectomy. Cholecystectomy. Spinal rods placed. Infusaport. ENCOUNTER: Initial ACUITY: 2 days PAIN SCORE: 9/10 LOCATION: Right chest FINDINGS: Lungs are clear. Heart size normal. Right portacatheter is present and postsurgical changes to the sp ine are again seen. CONCLUSION: No acute disease. Derrell Perez MD on April 01, 2017 at 20:47 Board Certified Radiologist. This report was verified electronically.
[2017-04-01 20:53] LABS: CHLORIDE 106 MEQ/L (98-107); SODIUM (NA) 140 MEQ/L (136-145)
[2017-04-01 20:57] LABS: ALBUMIN 3.4 GM/DL (3.4-5.0); BICARBONATE 25.9 MEQ/L (21.0-32.0); BLOOD UREA NITROGEN 12 MG/DL (7-18); CALCIUM 8.5 MG/DL (8.5-10.1); GLUCOSE,RANDOM 84 MG/DL (74-106)
[2017-04-01 21:00] LABS: ALT (GPT) 31 U/L (10-53); AST (GOT) 43 U/L (15-37); GLOMERULAR FILTRATION RATE 69 ML/MIN (>89)
[2017-04-01 21:02] LABS: TOTAL BILIRUBIN ADULT 1.2 MG/DL (0.2-1.0); TOTAL PROTEIN 8.2 GM/DL (6.4-8.2)
[2017-04-01 21:03] LABS: ALKALINE PHOSPHATASE 116 U/L (45-117)
[2017-04-01 21:04] LABS: BASOPHILS 2 % (0-2); CORRECTED NUCLEATED RBC 1 /100 WBC (0-0); LYMPHOCYTES 35 % (9-44); MONOCYTES 7 % (0-8); NEUTROPHIL # MANUAL DIFF 4.5 TH/MM3 (1.8-7.7); NUCLEATED RED BLOOD CELL 1 (0-0); OVALOCYTES 1+ (NORMAL); POLYS (SEG NEUTROPHILS) 43 % (16-70); SICKLE CELLS 2+ (NORMAL)
[2017-04-01 21:05] LABS: TARGET CELLS 1+ (NORMAL)
[2017-04-01] MEDS ORDERED: ONDANSETRON HCL 4 MG/2 ML VIAL IV ONE (21:15)
[2017-04-01] MEDS ORDERED: diphenhydrAMINE HCL 50 MG/ML VIAL IV PUSH ONE (21:15)
[2017-04-01] MEDS ORDERED: HYDROmorphone HCL PF 2 MG/ML VIAL IV PUSH ONE ×2 (21:15→22:00)
[2017-04-01] MEDS ORDERED: ONDANSETRON HCL 4 MG/2 ML VIAL IV PUSH ONE (22:00)
[2017-04-01 22:24] VITALS: BP 140/74; PULSE 95; RESP 18; TEMP 98.9; O2SAT 98
== END 2017-04-01 22:26 | disposition home or self-care (01) ==
LOC: PHED 19:45
DX: O99.011 Anemia complicating pregnancy, first trimester (principal); D57.00 Hb-SS disease with crisis, unspecified; O16.1 Unspecified maternal hypertension, first trimester; M41.9 Scoliosis, unspecified; Z86.718 Personal history of other venous thrombosis and embolism; Z79.82 Long term (current) use of aspirin; Z79.899 Other long term (current) drug therapy
CPT/HCPCS: 71046; 80053; 84702; 85007; 85027; 96374; 96375; 96376; 99284; J1170; J1200; J1642; J2405

== ENCOUNTER 2017-04-23 08:41 | Emergency (ER) | payer OTHER, MEDICAID ==
[~2017-04-23] VITALS: Ht 162.6 cm; Wt 64.0 kg
[2017-04-23 08:49] VITALS: BP 116/60; PULSE 98; RESP 18; TEMP 98.7; O2SAT 98
[2017-04-23] MEDS ORDERED: SODIUM CHLOR 0.9% 1000 ML INJ 1,000 ML IV ONE (09:01)
[2017-04-23 09:10] VITALS: RESP 16; O2SAT 98
[2017-04-23] MEDS ORDERED: HYDROmorphone HCL PF 2 MG/ML VIAL IV PUSH ONE ×2 (09:15→10:45)
[2017-04-23] MEDS ORDERED: ONDANSETRON HCL 4 MG/2 ML VIAL IVP ONE (09:15)
[2017-04-23] MEDS ORDERED: diphenhydrAMINE HCL 50 MG/ML VIAL IV PUSH ONE (09:15)
--- NOTE | 2017-04-23 09:15 | PD ---
HPI Chief Complaint: Sickle Cell Time Seen by Provider: 08:57 Travel History International Travel<30 days: No Contact w/Intl Traveler<30days: No Traveled to known affect area: No History of Present Illness HPI This is a 36-year-old female who has a history of sickle cell disease who presents to the emergency department with increasing pain in her arms and back, constant, described as a soreness, moderate severity that's been worsening over 2 weeks but worse today. She's been taking Dilaudid 4 mg every 6 at home but it 's not helping. She follows with Dr. Shea. She denies any fevers, productive cough, chills or shortness of breath. PFSH Past Medical History Hx Anticoagulant Therapy: Yes (ASA) Anemia: Yes (SICKLE CELL) Arthritis: No Asthma: No Autoimmune Disease: No Blood Disorders: Yes (SICKLE CELL) Anxiety: No Depression: No Heart Rhythm Problems: No Cancer: No Cardiovascular Problems: Yes (htn on meds) High Cholesterol: No Chemotherapy: No Chest Pain: No Congestive Heart Failure: No COPD: No Cerebrovascular Accident: No Diabetes: No Diminished Hearing: No Deep Vein Thrombosis: Yes (HX LEFT ARM ) Endocrine: No Gastrointestinal Disorders: Yes GERD: No Glaucoma: No Genitourinary: Yes Headaches: Yes Hepatitis: No Hiatal Hernia: No Heparin Induced Thrombocytopen: No Hypertension: Yes Immune Disorder: Yes (SICKLE CELL) Implanted Vascular Access Dvce: Yes ( RIGHT POWER INFUSAPORT) Kidney Stones: No Musculoskeletal: Yes (SCOLIOSIS) Neurologic: Yes Psychiatric: No Reproductive: No Respiratory: No Immunizations Current: Yes Migraines: Yes Pneumonia: Yes Radiation Therapy: No Renal Failure: No Seizures: No Sickle Cell Disease: Yes Sleep Apnea: No Thyroid Disease: No Ulcer: No Tetanus Vaccination: < 5 Years Influenza Vaccination: Yes PNEUMOCCOCAL Vaccine (Year): 2009 ?: Not LMP: irregular -5 months ago Menopausal: No : 5 Para: 2 Miscarriage: 3 : 0 Ovarian Cysts: Yes Past Surgical History Abdominal Surgery: Yes (cholecystectomy) AICD: No Appendectomy: Yes Arteriovenous Shunt: No Body Medical Devices: CATIA IN UPPER BACK Cardiac Surgery: No Cholecystectomy: Yes Ear Surgery: No Endocrine Surgery: No Eye Surgery: No Genitourinary Surgery: No Gynecologic Surgery: No Hysterectomy: No Insulin Pump: No Joint Replacement: Yes (R HIP REPLACEMENT 2011, L HIP 2014) Neurologic Surgery: No Oral Surgery: No Pacemaker: No Thoracic Surgery: No Other Surgery: Yes (INSERTION OF INFUSA PORTX 3) Social History Alcohol Use: Yes (OCCASIONAL WINE) Tobacco Use: No Substance Use: No Allergies-Medications (Allergen,Severity, Reaction): Coded Allergies: ketorolac (Unverified Allergy, Severe, Itching, 04/23/17) morphine (Unverified Allergy, Mild, Swelling, 04/23/17) ibuprofen (Unverified Adverse Reaction, Severe, Urinary Freq (Inc/Dec), ) RENAL FAILURE methadone (Unverified Adverse Reaction, Severe, DEPRESSION, 04/23/17) Reported Meds & Prescriptions Reported Meds & Active Scripts Active Reported Dilaudid (Hydromorphone HCl) 4 Mg Tab 4 Mg PO Q6H PRN Hydrea (Hydroxyurea) 500 Mg Cap 500 Mg PO TID Folic Acid 400 Mcg Tab 1 Mg PO DAILY Aspirin 81 Mg Chew 81 Mg CHEW DAILY Jadenu (Deferasirox) 90 Mg Tab DAILY Amlodipine (Amlodipine Besylate) 5 Mg Tab 5 Mg PO DAILY Review of Systems Except as stated in HPI: all other systems reviewed are Neg Physical Exam Narrative GENERAL:Well appearing, no acute distress SKIN: Focused skin assessment warm and dry. HEAD: Atraumatic. Normocephalic. EYES: Pupils equal and round. No injection or drainage. ENT: Moist mucous membranes NECK: Trachea midline. CARDIOVASCULAR: Regular rate and rhythm. No murmur appreciated. RESPIRATORY: Clear to auscultation. Breath sounds equal bilaterally. GASTROINTESTINAL: Abdomen soft, non-tender, nondistended. MUSCULOSKELETAL: No obvious deformities. NEUROLOGICAL: Awake and alert. No obvious cranial nerve deficits. Moving all extremities. PSYCHIATRIC: Appropriate mood and affect; insight and judgment normal. Data Data Last Documented VS Vital Signs Date Time Temp Pulse Resp B/P (MAP) Pulse Ox O2 Delivery O2 Flow Rate FiO2 04/23/17 09:10 16 98 Room Air 04/23/17 09:00 95 04/23/17 08:49 98.7 116/60 (78) Orders Orders Complete Blood Count With Diff (04/23/17 09:01) Comprehensive Metabolic Panel (04/23/17 09:01) Retic Count (04/23/17 09:01) Ecg Monitoring (04/23/17 09:01) Iv Access Insert/Monitor (04/23/17 09:01) Oximetry (04/23/17 09:01) Ondansetron Inj (Zofran Inj) (04/23/17 09:15) Sodium Chloride 0.9% Flush (Ns Flush) (04/23/17 09:15) Sodium Chlor 0.9% 1000 Ml Inj (Ns 1000 M (04/23/17 09:01) Diphenhydramine Inj (Benadryl Inj) (04/23/17 09:15) Hydromorphone Pf Inj (Dilaudid Pf Inj) (04/23/17 09:15) Labs Laboratory Tests Test 04/23/17 08:25 White Blood Count 9.6 TH/MM3 Corrected White Blood Count 8.8 TH/MM3 Red Blood Count 2.57 MIL/MM3 Hemoglobin 7.7 GM/DL Hematocrit 23.8 % Mean Corpuscular Volume 92.6 FL Mean Corpuscular Hemoglobin 30.1 PG Mean Corpuscular Hemoglobin Concent 32.5 % Red Cell Distribution Width 25.5 % Platelet Count 352 TH/MM3 Mean Platelet Volume 8.2 FL CBC Comment AUTO DIFF Differential Total Cells Counted 100 Neutrophils % (Manual) 71 % Lymphocytes % 25 % Monocytes % 2 % Eosinophils % 2 % Neutrophils # (Manual) 6.2 TH/MM3 Nucleated Red Blood Cells 9 /100 WBC Platelet Estimate NORMAL Platelet Morphology Comment NORMAL Sickle Cells 1+ Target Cells 2+ Ovalocytes 1+ Keratocytes OCC Blood Urea Nitrogen 14 MG/DL Creatinine 1.10 MG/DL Random Glucose 81 MG/DL Total Protein 8.6 GM/DL Albumin 3.6 GM/DL Calcium Level 8.8 MG/DL Alkaline Phosphatase 117 U/L Aspartate Amino Transf (AST/SGOT) 54 U/L Alanine Aminotransferase (ALT/SGPT) 36 U/L Total Bilirubin 1.6 MG/DL Sodium Level 140 MEQ/L Potassium Level 4.2 MEQ/L Chloride Level 107 MEQ/L Carbon Dioxide Level 25.8 MEQ/L Anion Gap 7 MEQ/L Estimat Glomerular Filtration Rate 69 ML/MIN MDM Medical Decision Making Medical Screen Exam Complete: Yes Emergency Medical Condition: Yes Interpretation(s) Afebrile, mild tachycardia, normotensive No leukocytosis Hemoglobin is 7.7 Electrolytes are reassuring Differential Diagnosis Vaso-occlusive crisis, acute chest syndrome, pneumonia Narrative Course This is a 36-year-old female who has a history of sickle cell disease who presents to the emergency department with a pain crisis. She has no hypoxia no respiratory symptoms so I doubt acute chest syndrome. She otherwise appears well. She was placed on a monitor and an IV was established. She was given pain control and IV fluids and she feels much better. 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 Diagnosis Primary Impression: Vaso-occlusive sickle cell crisis Patient Instructions: General Instructions Additional Instructions: If you develop severe chest pain, shortness of breath, sweating, lightheadedness , dizziness or difficulty breathing return to the emergency department immediately. Followup with your primary care physician in 2-3 days if your symptoms are not resolved. Med/Other Pt SpecificInfo: No Change to Meds Disposition: 01 DISCHARGE HOME Condition: Stable Leonie Solorzano MD Apr 23, 2017 09:15
[2017-04-23 09:34] LABS: HEMATOCRIT 23.8 % (35.0-46.0); HEMOGLOBIN 7.7 GM/DL (11.6-15.3); MEAN CELL VOLUME 92.6 FL (80.0-100.0); MEAN CORPUSCULAR HEMOGLOBIN 30.1 PG (27.0-34.0); MEAN CORPUSCULAR HGB CONC 32.5 % (32.0-36.0); MEAN PLATELET VOLUME 8.2 FL (7.0-11.0); PLATELET COUNT 352 TH/MM3 (150-450); RED BLOOD COUNT 2.57 MIL/MM3 (4.00-5.30); RED CELL DISTRIBUTION WIDTH 25.5 % (11.6-17.2); WHITE BLOOD COUNT 9.6 TH/MM3 (4.0-11.0)
[2017-04-23] MEDS: SODIUM CHLORIDE 0.9% FLUSH 10 ML FLUSH IVF PRN ×2 (09:39→12:05)
[2017-04-23 10:00] VITALS: BP 118/61; PULSE 86; RESP 16
[2017-04-23 10:05] LABS: CORRECTED NUCLEATED RBC 9 /100 WBC (0-0); CORRECTED WBC 8.8 TH/MM3 (4.0-11.0); KERATOCYTES OCC (NORMAL); LYMPHOCYTES 25 % (9-44); MONOCYTES 2 % (0-8); NEUTROPHIL # MANUAL DIFF 6.2 TH/MM3 (1.8-7.7); NUCLEATED RED BLOOD CELL 9 (0-0); POLYS (SEG NEUTROPHILS) 71 % (16-70); SICKLE CELLS 1+ (NORMAL); TARGET CELLS 2+ (NORMAL)
[2017-04-23 10:06] LABS: OVALOCYTES 1+ (NORMAL)
[2017-04-23 10:08] LABS: CALCIUM 8.8 MG/DL (8.5-10.1)
[2017-04-23 10:09] LABS: ALBUMIN 3.6 GM/DL (3.4-5.0); BICARBONATE 25.8 MEQ/L (21.0-32.0); BLOOD UREA NITROGEN 14 MG/DL (7-18); GLUCOSE,RANDOM 81 MG/DL (74-106)
[2017-04-23 10:12] LABS: AST (GOT) 54 U/L (15-37); GLOMERULAR FILTRATION RATE 69 ML/MIN (>89)
[2017-04-23 10:13] LABS: TOTAL BILIRUBIN ADULT 1.6 MG/DL (0.2-1.0); TOTAL PROTEIN 8.6 GM/DL (6.4-8.2)
[2017-04-23 10:15] LABS: ALKALINE PHOSPHATASE 117 U/L (45-117)
[2017-04-23 10:16] LABS: CHLORIDE 107 MEQ/L (98-107); SODIUM (NA) 140 MEQ/L (136-145)
[2017-04-23 10:17] LABS: ALT (GPT) 36 U/L (10-53)
[2017-04-23 10:40] LABS: RETIC # 283.3 MIL/L (20.0-150.0); RETIC % 11.2 % (0.4-3.0)
[2017-04-23 11:15] VITALS: RESP 16
[2017-04-23 12:22] VITALS: BP 112/64
== END 2017-04-23 12:22 | disposition home or self-care (01) ==
LOC: PHED 08:41
DX: D57.00 Hb-SS disease with crisis, unspecified (principal); I10 Essential (primary) hypertension; M41.9 Scoliosis, unspecified; Z86.718 Personal history of other venous thrombosis and embolism; Z90.49 Acquired absence of other specified parts of digestive tract; Z88.5 Allergy status to narcotic agent; Z88.6 Allergy status to analgesic agent; Z79.899 Other long term (current) drug therapy; Z79.82 Long term (current) use of aspirin
CPT/HCPCS: 80053; 85007; 85027; 85044; 96361; 96374; 96375; 96376; 99283; J1170; J1200; J1642; J2405; J7030

== ENCOUNTER 2017-05-10 11:14 | Emergency (ER) | payer OTHER, MEDICAID ==
[~2017-05-10] VITALS: Ht 162.6 cm; Wt 69.0 kg
[~2017-05-10 11:14] MED LIST changes: -HYDR-3516 PO; -METR.75%V VAGINAL; -SM C1CRE VAGINAL
[2017-05-10 11:27] VITALS: BP 125/77; PULSE 90; RESP 16; TEMP 98.8; O2SAT 96
[2017-05-10] MEDS ORDERED: SODIUM CHLOR 0.9% 1000 ML INJ 1,000 ML IV ONE (13:36)
[2017-05-10] MEDS ORDERED: LIDOCAINE HCL 2% 100 MG/5 ML SYRINGE IV PUSH ONE (13:45)
[2017-05-10] MEDS ORDERED: SODIUM CHLORIDE 0.9% FLUSH 10 ML FLUSH IVF PRN (13:45)
--- NOTE | 2017-05-10 13:52 | PD ---
HPI . Sickle cell crisis Chief Complaint: Sickle Cell Time Seen by Provider: 13:26 Travel History International Travel<30 days: No Contact w/Intl Traveler<30days: No Traveled to known affect area: No History of Present Illness HPI Patient presents with chief complaint of sickle cell crisis. Onset was a week ago. Planes of pain in both arms, both legs and her back. This is her typical pattern. She is taking Dilaudid 4 mg every 6 hours without relief of her pain. She denies any chest pain or shortness of breath. She denies fever. She denies any systemic symptoms. Pain is rated 9/10. PFSH Past Medical History Hx Anticoagulant Therapy: Yes (ASA) Anemia: Yes (SICKLE CELL) Arthritis: No Asthma: No Autoimmune Disease: No Blood Disorders: Yes (SICKLE CELL) Anxiety: No Depression: No Heart Rhythm Problems: No Cancer: No Cardiovascular Problems: Yes (htn on meds) High Cholesterol: No Chemotherapy: No Chest Pain: No Congestive Heart Failure: No COPD: No Cerebrovascular Accident: No Diabetes: No Diminished Hearing: No Deep Vein Thrombosis: Yes (HX LEFT ARM ) Endocrine: No Gastrointestinal Disorders: Yes GERD: No Glaucoma: No Genitourinary: Yes Headaches: Yes Hepatitis: No Hiatal Hernia: No Heparin Induced Thrombocytopen: No Hypertension: Yes Immune Disorder: Yes (SICKLE CELL) Implanted Vascular Access Dvce: Yes ( RIGHT POWER INFUSAPORT) Kidney Stones: No Medical other: Yes (AVASCULAR NECROSIS) Musculoskeletal: Yes (SCOLIOSIS) Neurologic: Yes Psychiatric: No Reproductive: No Respiratory: No Immunizations Current: Yes Migraines: Yes Pneumonia: Yes Radiation Therapy: No Renal Failure: No Seizures: No Sickle Cell Disease: Yes Sleep Apnea: No Thyroid Disease: No Ulcer: No PNEUMOCCOCAL Vaccine (Year): 2008 ?: Not LMP: 5 MONTHS AGO Menopausal: No : 5 Para: 2 Miscarriage: 3 : 0 Ovarian Cysts: Yes Past Surgical History Abdominal Surgery: Yes (cholecystectomy) AICD: No Appendectomy: Yes Arteriovenous Shunt: No Body Medical Devices: CATIA IN UPPER BACK Cardiac Surgery: No Cholecystectomy: Yes Ear Surgery: No Endocrine Surgery: No Eye Surgery: No Genitourinary Surgery: No Gynecologic Surgery: No Hysterectomy: No Insulin Pump: No Joint Replacement: Yes (R HIP REPLACEMENT 2011, L HIP 2014) Neurologic Surgery: No Oral Surgery: No Pacemaker: No Thoracic Surgery: No Other Surgery: Yes (INSERTION OF INFUSA PORTX 3) Social History Alcohol Use: Yes (OCCASIONAL WINE) Tobacco Use: No Substance Use: No Allergies-Medications (Allergen,Severity, Reaction): Coded Allergies: ketorolac (Verified Allergy, Severe, Itching, 05/10/17) morphine (Verified Allergy, Mild, Swelling, 05/10/17) ibuprofen (Verified Adverse Reaction, Severe, Urinary Freq (Inc/Dec), 05/10) RENAL FAILURE methadone (Verified Adverse Reaction, Severe, DEPRESSION, 05/10/17) Reported Meds & Prescriptions Reported Meds & Active Scripts Active Reported Dilaudid (Hydromorphone HCl) 4 Mg Tab 4 Mg PO Q6H PRN Hydrea (Hydroxyurea) 500 Mg Cap 500 Mg PO TID Folic Acid 400 Mcg Tab 1 Mg PO DAILY Aspirin 81 Mg Chew 81 Mg CHEW DAILY Jadenu (Deferasirox) 90 Mg Tab DAILY Amlodipine (Amlodipine Besylate) 5 Mg Tab 5 Mg PO DAILY Review of Systems Except as stated in HPI: all other systems reviewed are Neg General / Constitutional: No: Fever, Chills Cardiovascular: No: Chest Pain or Discomfort Respiratory: No: Shortness of Breath Gastrointestinal: No: Nausea, Vomiting, Diarrhea Genitourinary: No: Urgency, Frequency, Dysuria Musculoskeletal: Positive: Pain Physical Exam Narrative GENERAL: Patient looks her usual self. SKIN: warm/dry. Good color and turgor. HEAD: Normocephalic. Atraumatic. EYES: Pupils equal and round. No scleral icterus. No injection or drainage. ENT: No nasal bleeding or discharge. Mucous membranes pink and moist. NECK: Trachea midline. Full range of motion without pain.. CARDIOVASCULAR: Regular rate and rhythm. RESPIRATORY: No accessory muscle use. Clear to auscultation. Breath sounds equal bilaterally. GASTROINTESTINAL: Abdomen soft. Nontender. Bowel sounds present. Nondistended. MUSCULOSKELETAL: No obvious deformities. No edema of the lower extremities. NEUROLOGICAL: Awake and alert. No obvious cranial nerve deficits. Motor grossly within normal limits. Normal speech. PSYCHIATRIC: Appropriate mood and affect; insight and judgment normal. Data Data Last Documented VS Vital Signs Date Time Temp Pulse Resp B/P (MAP) Pulse Ox O2 Delivery O2 Flow Rate FiO2 05/10/17 15:29 81 16 133/58 (83) 99 Room Air 05/10/17 14:10 2.00 05/10/17 11:27 98.8 Orders Orders Complete Blood Count With Diff (05/10/17 13:36) Comprehensive Metabolic Panel (05/10/17 13:36) Retic Count (05/10/17 13:36) Iv Access Insert/Monitor (05/10/17 13:36) Oxygen Administration (05/10/17 13:36) Sodium Chloride 0.9% Flush (Ns Flush) (05/10/17 13:45) Sodium Chlor 0.9% 1000 Ml Inj (Ns 1000 M (05/10/17 13:36) Lidocaine 2% Inj (Xylocaine 2% Inj) (05/10/17 13:45) Labs Laboratory Tests Test 05/10/17 14:05 White Blood Count 11.0 TH/MM3 Red Blood Count 2.46 MIL/MM3 Hemoglobin 8.1 GM/DL Hematocrit 22.9 % Mean Corpuscular Volume 93.1 FL Mean Corpuscular Hemoglobin 33.1 PG Mean Corpuscular Hemoglobin Concent 35.5 % Red Cell Distribution Width 26.0 % Platelet Count 346 TH/MM3 Mean Platelet Volume 8.5 FL CBC Comment AUTO DIFF Differential Total Cells Counted 100 Neutrophils % (Manual) 44 % Lymphocytes % 38 % Monocytes % 12 % Eosinophils % 6 % Neutrophils # (Manual) 4.8 TH/MM3 Nucleated Red Blood Cells 3 /100 WBC Differential Comment FINAL DIFF MANUAL Platelet Estimate NORMAL Platelet Morphology Comment NORMAL Sickle Cells 2+ Ovalocytes 1+ Blood Urea Nitrogen 14 MG/DL Creatinine 1.00 MG/DL Random Glucose 83 MG/DL Total Protein 8.6 GM/DL Albumin 3.8 GM/DL Calcium Level 8.8 MG/DL Alkaline Phosphatase 127 U/L Aspartate Amino Transf (AST/SGOT) 44 U/L Alanine Aminotransferase (ALT/SGPT) 25 U/L Total Bilirubin 1.6 MG/DL Sodium Level 139 MEQ/L Potassium Level 3.9 MEQ/L Chloride Level 108 MEQ/L Carbon Dioxide Level 24.2 MEQ/L Anion Gap 7 MEQ/L Estimat Glomerular Filtration Rate 77 ML/MIN [facility] Medical Decision Making Medical Screen Exam Complete: Yes Emergency Medical Condition: Yes Medical Record Reviewed: Yes (patient is seen here fairly regularly for sickle cell crisis. Her most recent note from her contract administrative assistant reports that she is on amlodipine, Dilaudid 6 times per day, folic acid, Hydrea and Xarelto. The patient states that she is no longer on Xarelto but is taking a baby aspirin a day started.) Differential Diagnosis My differential diagnosis of sickle cell disease includes but is not limited to vaso-occlusive crisis, acute chest syndrome, occult infection, electrolyte disturbance, drug-seeking behavior. Narrative Course This patient presents complaining of a sickle cell crisis unrelieved by oral Dilaudid. I will give her lidocaine 1.5 mg/kg IV for pain control. Routine labs are pending. She will also be treated with oxygen and IV fluids. The nurses were not comfortable pushing the IV lidocaine. It took about an hour and a half after ordered it before it was available to me. I have pushed lidocaine. She states that it is making her feel dizzy. CBC & BMP Diagram 05/10/17 14:05 Total Protein 8.6 H, Albumin 3.8, Calcium Level 8.8, Alkaline Phosphatase 127 H , Aspartate Amino Transf (AST/SGOT) 44 H, Alanine Aminotransferase (ALT/SGPT) 25 , Total Bilirubin 1.6 H These labs are about usual for her. Her pain is now down to a 2/10 following the lidocaine. She will be discharged to home. Diagnosis Primary Impression: Sickle cell anemia with crisis Patient Instructions: General Instructions, Sickle Cell Disease (DC) Disposition: 01 DISCHARGE HOME Condition: Stable Jennifer Sandoval MD May 10, 2017 13:52
[2017-05-10 14:21] LABS: HEMATOCRIT 22.9 % (35.0-46.0); HEMOGLOBIN 8.1 GM/DL (11.6-15.3); MEAN CELL VOLUME 93.1 FL (80.0-100.0); MEAN CORPUSCULAR HEMOGLOBIN 33.1 PG (27.0-34.0); MEAN CORPUSCULAR HGB CONC 35.5 % (32.0-36.0); MEAN PLATELET VOLUME 8.5 FL (7.0-11.0); PLATELET COUNT 346 TH/MM3 (150-450); RED BLOOD COUNT 2.46 MIL/MM3 (4.00-5.30)
[2017-05-10 14:30] LABS: CHLORIDE 108 MEQ/L (98-107); SODIUM (NA) 139 MEQ/L (136-145)
[2017-05-10 14:36] LABS: ALBUMIN 3.8 GM/DL (3.4-5.0); CALCIUM 8.8 MG/DL (8.5-10.1)
[2017-05-10 14:37] LABS: BICARBONATE 24.2 MEQ/L (21.0-32.0); BLOOD UREA NITROGEN 14 MG/DL (7-18); GLUCOSE,RANDOM 83 MG/DL (74-106)
[2017-05-10 14:39] LABS: ALT (GPT) 25 U/L (10-53); AST (GOT) 44 U/L (15-37); GLOMERULAR FILTRATION RATE 77 ML/MIN (>89)
[2017-05-10 14:41] LABS: TOTAL BILIRUBIN ADULT 1.6 MG/DL (0.2-1.0); TOTAL PROTEIN 8.6 GM/DL (6.4-8.2)
[2017-05-10 14:42] LABS: ALKALINE PHOSPHATASE 127 U/L (45-117)
[2017-05-10 15:01] VITALS: BP 135/83; PULSE 90; RESP 16; O2SAT 98
[2017-05-10 15:06] LABS: CORRECTED NUCLEATED RBC 3 /100 WBC (0-0); LYMPHOCYTES 38 % (9-44); MONOCYTES 12 % (0-8); NEUTROPHIL # MANUAL DIFF 4.8 TH/MM3 (1.8-7.7); NUCLEATED RED BLOOD CELL 3 (0-0); POLYS (SEG NEUTROPHILS) 44 % (16-70)
[2017-05-10 15:09] LABS: OVALOCYTES 1+ (NORMAL); SICKLE CELLS 2+ (NORMAL)
[2017-05-10 15:29] VITALS: BP 133/58; PULSE 81; RESP 16; O2SAT 99
[2017-05-10 16:33] LABS: RETIC # 202.1 MIL/L (20.0-150.0); RETIC % 8.2 % (0.4-3.0)
== END 2017-05-10 17:15 | disposition home or self-care (01) ==
LOC: PHED 11:14
DX: D57.00 Hb-SS disease with crisis, unspecified (principal); M79.601 Pain in right arm; M79.602 Pain in left arm; M79.604 Pain in right leg; M79.605 Pain in left leg; M54.9 Dorsalgia, unspecified; I10 Essential (primary) hypertension; Z79.82 Long term (current) use of aspirin; Z86.718 Personal history of other venous thrombosis and embolism; Z87.19 Personal history of other diseases of the digestive system; Z87.448 Personal history of other diseases of urinary system; Z87.39 Personal history of other diseases of the musculoskeletal system and connective tissue; Z86.69 Personal history of other diseases of the nervous system and sense organs
CPT/HCPCS: 80053; 85007; 85027; 85044; 96361; 96374; 99283; J1642; J7030

== ENCOUNTER 2017-05-28 08:28 | Emergency (ER) | payer OTHER, MEDICAID ==
[~2017-05-28] VITALS: Ht 162.6 cm; Wt 66.0 kg
[2017-05-28 08:30] VITALS: BP 180/101; PULSE 65; RESP 18; TEMP 98.5; O2SAT 93
[2017-05-28] MEDS ORDERED: SODIUM CHLOR 0.9% 1000 ML INJ 1,000 ML IV ONE (08:42)
[2017-05-28] MEDS ORDERED: SODIUM CHLORIDE 0.9% FLUSH 10 ML FLUSH IVF PRN (08:45)
[2017-05-28] MEDS ORDERED: ONDANSETRON HCL 4 MG/2 ML VIAL IVP ONE (08:45)
[2017-05-28] MEDS ORDERED: HYDROmorphone HCL PF 2 MG/ML VIAL IVS ONE ×2 (08:45→11:30)
--- NOTE | 2017-05-28 09:20 | RADRPT ---
EXAM DATE/TIME: 05/28/2017 08:50 [facility] COMPARISON: CHEST PA & LAT, April 01, 2017, 20:34. INDICATIONS : Short of breath MEDICAL HISTORY : Deep venous thrombosis. Sickle Cell disease. Hypertension. Pneumonia, Scolosis SURGICAL HISTORY : Appendectomy. Cholecystectomy. Spinal rods placed. Infusaport ENCOUNTER: Initial ACUITY: 3 days PAIN SCORE: 5/10 LOCATION: Bilateral chest FINDINGS: True and screw fixation of the thoracic spine again seen. The lungs are clear. No consolidation or eff usion Mediport catheter again noted. CONCLUSION: No significant change has occurred. Derrell Perez MD on May 28, 2017 at 9:16 Board Certified Radiologist. This report was verified electronically.
[2017-05-28 09:25] LABS: HEMATOCRIT 24.6 % (35.0-46.0); HEMOGLOBIN 8.4 GM/DL (11.6-15.3); MEAN CORPUSCULAR HEMOGLOBIN 32.8 PG (27.0-34.0); MEAN CORPUSCULAR HGB CONC 34.1 % (32.0-36.0); MEAN PLATELET VOLUME 8.9 FL (7.0-11.0); PLATELET COUNT 331 TH/MM3 (150-450); RED BLOOD COUNT 2.56 MIL/MM3 (4.00-5.30); RED CELL DISTRIBUTION WIDTH 30.1 % (11.6-17.2); WHITE BLOOD COUNT 13.3 TH/MM3 (4.0-11.0)
--- NOTE | 2017-05-28 09:25 | PD ---
HPI Chief Complaint: Sickle Cell Time Seen by Provider: 08:33 Travel History International Travel<30 days: No Contact w/Intl Traveler<30days: No History of Present Illness HPI This is a 36-year-old female with a history of sickle cell disease who presents for sickle cell crisis. She states that on May 23, she developed diffuse joint pain similar to prior crises. The pain worsened yesterday. She went to the infusion center and had IV fluids, 2 doses of IV Dilaudid and received 1 unit of packed red blood cells for hemoglobin of 6.6. She states that her pain is not appropriately controlled. The first few days of the crisis, she had a few episodes of nausea and nonbilious, nonbloody emesis that she felt was secondary to pain. She is not otherwise nauseated. No abdominal pain. She has not had any recent vomiting. She states that she did have a fever of 101 yesterday while receiving the blood transfusion and was given a dose of Tylenol. No significant cough or congestion. Mild pain in her chest wall as well as her joints. No difficulty breathing. She last took her home Dilaudid around 1 AM. Symptoms are moderate in severity. Sore in nature. Onset gradual. PFSH Past Medical History Hx Anticoagulant Therapy: Yes (ASA) Anemia: Yes (SICKLE CELL) Arthritis: No Asthma: No Autoimmune Disease: No Blood Disorders: Yes (SICKLE CELL) Anxiety: No Depression: No Heart Rhythm Problems: No Cancer: No Cardiovascular Problems: Yes (htn on meds) High Cholesterol: No Chemotherapy: No Chest Pain: No Congestive Heart Failure: No COPD: No Cerebrovascular Accident: No Diabetes: No Diminished Hearing: No Deep Vein Thrombosis: Yes (HX LEFT ARM ) Endocrine: No Gastrointestinal Disorders: Yes GERD: No Glaucoma: No Genitourinary: Yes Headaches: Yes Hepatitis: No Hiatal Hernia: No Heparin Induced Thrombocytopen: No Hypertension: Yes Immune Disorder: Yes (SICKLE CELL) Implanted Vascular Access Dvce: Yes ( RIGHT POWER INFUSAPORT) Kidney Stones: No Musculoskeletal: Yes (SCOLIOSIS) Neurologic: Yes Psychiatric: No Reproductive: No Respiratory: No Immunizations Current: Yes Migraines: Yes Pneumonia: Yes Radiation Therapy: No Renal Failure: No Seizures: No Sickle Cell Disease: Yes Sleep Apnea: No Thyroid Disease: No Ulcer: No PNEUMOCCOCAL Vaccine (Year): 2008 Menopausal: No : 5 Para: 2 Miscarriage: 3 : 0 Ovarian Cysts: Yes Past Surgical History Abdominal Surgery: Yes (cholecystectomy) AICD: No Appendectomy: Yes Arteriovenous Shunt: No Body Medical Devices: CATIA IN UPPER BACK Cardiac Surgery: No Cholecystectomy: Yes Ear Surgery: No Endocrine Surgery: No Eye Surgery: No Genitourinary Surgery: No Gynecologic Surgery: No Hysterectomy: No Insulin Pump: No Joint Replacement: Yes (R HIP REPLACEMENT 2011, L HIP 2014) Neurologic Surgery: No Oral Surgery: No Pacemaker: No Thoracic Surgery: No Other Surgery: Yes (INSERTION OF INFUSA PORTX 3) Social History Alcohol Use: Yes (OCCASIONAL WINE) Tobacco Use: No Substance Use: No Allergies-Medications (Allergen,Severity, Reaction): Coded Allergies: ketorolac (Verified Allergy, Severe, Itching, 05/28/17) morphine (Verified Allergy, Mild, Swelling, 05/28/17) ibuprofen (Verified Adverse Reaction, Severe, Urinary Freq (Inc/Dec), ) RENAL FAILURE methadone (Verified Adverse Reaction, Severe, DEPRESSION, 05/28/17) Reported Meds & Prescriptions Reported Meds & Active Scripts Active Reported Dilaudid (Hydromorphone HCl) 4 Mg Tab 4 Mg PO Q6H PRN Hydrea (Hydroxyurea) 500 Mg Cap 500 Mg PO TID Folic Acid 400 Mcg Tab 1 Mg PO DAILY Aspirin 81 Mg Chew 81 Mg CHEW DAILY Jadenu (Deferasirox) 90 Mg Tab DAILY Amlodipine (Amlodipine Besylate) 5 Mg Tab 5 Mg PO DAILY Review of Systems Except as stated in HPI: all other systems reviewed are Neg Physical Exam Narrative GENERAL: Alert, well nourished, well appearing patient resting on the bed in no acute distress. Vital Signs reviewed SKIN: Focused skin assessment warm/dry. HEAD: Atraumatic. Normocephalic. EYES: Pupils equal and round. No scleral icterus. No injection or drainage. ENT: No nasal bleeding or discharge. Mucous membranes pink and moist. NECK: Trachea midline. No JVD. Spontaneous, painless full range of motion with no meningismus CARDIOVASCULAR: Regular rate and rhythm. No murmur appreciated. Extremities warm and well perfused with bounding peripheral pulses RESPIRATORY: No accessory muscle use. Clear to auscultation. Breath sounds equal bilaterally. Breathing easily and speaking in full sentences GASTROINTESTINAL: Abdomen soft, non-tender, nondistended. Normal bowel sounds. No rigid, rebound, guarding MUSCULOSKELETAL: No obvious deformities. No clubbing. No cyanosis. No edema. Compartments are soft. No palpable calf cords. Negative Homans sign bilaterally. NEUROLOGICAL: Awake and alert. No obvious cranial nerve deficits. Motor grossly within normal limits. Normal speech. Sensation intact. Normal gait Data Data Last Documented VS Vital Signs Date Time Temp Pulse Resp B/P (MAP) Pulse Ox O2 Delivery O2 Flow Rate FiO2 05/28/17 11:21 85 16 148/94 (112) 94 Room Air 05/28/17 09:30 2.00 05/28/17 08:30 98.5 Orders Orders Complete Blood Count With Diff (05/28/17 08:42) Comprehensive Metabolic Panel (05/28/17 08:42) Retic Count (05/28/17 08:42) Urinalysis - C+S If Indicated (05/28/17 08:42) Blood Culture (05/28/17 08:42) Chest, Pa & Lat (05/28/17 08:42) Ecg Monitoring (05/28/17 08:42) Iv Access Insert/Monitor (05/28/17 08:42) Oximetry (05/28/17 08:42) Oxygen Administration (05/28/17 08:42) Hydromorphone Pf Inj (Dilaudid Pf Inj) (05/28/17 08:45) Ondansetron Inj (Zofran Inj) (05/28/17 08:45) Sodium Chloride 0.9% Flush (Ns Flush) (05/28/17 08:45) Sodium Chlor 0.9% 1000 Ml Inj (Ns 1000 M (05/28/17 08:42) Ckmb (Isoenzyme) Profile (05/28/17 08:42) Troponin I (05/28/17 08:42) Lipase (05/28/17 08:42) Ed Urine Pregnancytest Poc (05/28/17 08:42) Diphenhydramine (Benadryl) (05/28/17 09:30) Hydromorphone Pf Inj (Dilaudid Pf Inj) (05/28/17 11:30) Heparin Central Flush (Heparin Central F (05/28/17 11:45) Labs Laboratory Tests Test 05/28/17 09:06 05/28/17 09:50 White Blood Count 13.3 TH/MM3 Corrected White Blood Count 9.5 TH/MM3 Red Blood Count 2.56 MIL/MM3 Hemoglobin 8.4 GM/DL Hematocrit 24.6 % Mean Corpuscular Volume 96.0 FL Mean Corpuscular Hemoglobin 32.8 PG Mean Corpuscular Hemoglobin Concent 34.1 % Red Cell Distribution Width 30.1 % Platelet Count 331 TH/MM3 Mean Platelet Volume 8.9 FL CBC Comment AUTO DIFF Differential Total Cells Counted 100 Neutrophils % (Manual) 38 % Band Neutrophils % 2 % Lymphocytes % 44 % Monocytes % 7 % Eosinophils % 9 % Neutrophils # (Manual) 3.8 TH/MM3 Nucleated Red Blood Cells 40 /100 WBC Differential Comment FINAL DIFF MANUAL Platelet Estimate NORMAL Platelet Morphology Comment NORMAL Polychromasia 5.6 % Sickle Cells 2+ Target Cells 2+ Ovalocytes 1+ [place] Bodies PRESENT Keratocytes 1+ Reticulocyte Count 14.5 % Absolute Reticulocyte Count 369.5 MIL/L Blood Urea Nitrogen 7 MG/DL Creatinine 0.90 MG/DL Random Glucose 87 MG/DL Total Protein 8.1 GM/DL Albumin 3.2 GM/DL Calcium Level 8.5 MG/DL Alkaline Phosphatase 153 U/L Aspartate Amino Transf (AST/SGOT) 100 U/L Alanine Aminotransferase (ALT/SGPT) 62 U/L Total Bilirubin 2.6 MG/DL Sodium Level 141 MEQ/L Potassium Level 3.9 MEQ/L Chloride Level 108 MEQ/L Carbon Dioxide Level 25.9 MEQ/L Anion Gap 7 MEQ/L Estimat Glomerular Filtration Rate 87 ML/MIN Total Creatine Kinase 35 U/L Troponin I LESS THAN 0.02 NG/ML Lipase 184 U/L Urine Collection Type CLEAN CATCH Urine Color YELLOW Urine Turbidity CLEAR Urine pH 7.0 Urine Specific [place] 1.020 Urine Protein 100 mg/dL Urine Glucose (UA) NEG mg/dL Urine Ketones NEG mg/dL Urine Occult Blood LARGE Urine Nitrite NEG Urine Bilirubin NEG Urine Urobilinogen 2.0 MG/DL Urine Leukocyte Esterase NEG Urine RBC 10-14 /hpf Urine WBC 0-2 /hpf Urine Squamous Epithelial Cells > 8 /hpf Urine Renal Epithelial Cells 0-5 /hpf Urine Bacteria FEW /hpf Microscopic Urinalysis Comment CULT NOT INDICATED Urine Collection Time 09:50 [facility] Medical Decision Making Medical Screen Exam Complete: Yes Emergency Medical Condition: Yes Medical Record Reviewed: Yes Interpretation(s) Laboratory Tests Test 05/28/17 09:06 05/28/17 09:50 White Blood Count 13.3 TH/MM3 Corrected White Blood Count 9.5 TH/MM3 Red Blood Count 2.56 MIL/MM3 Hemoglobin 8.4 GM/DL Hematocrit 24.6 % Mean Corpuscular Volume 96.0 FL Mean Corpuscular Hemoglobin 32.8 PG Mean Corpuscular Hemoglobin Concent 34.1 % Red Cell Distribution Width 30.1 % Platelet Count 331 TH/MM3 Mean Platelet Volume 8.9 FL CBC Comment AUTO DIFF Differential Total Cells Counted 100 Neutrophils % (Manual) 38 % Band Neutrophils % 2 % Lymphocytes % 44 % Monocytes % 7 % Eosinophils % 9 % Neutrophils # (Manual) 3.8 TH/MM3 Nucleated Red Blood Cells 40 /100 WBC Differential Comment FINAL DIFF MANUAL Platelet Estimate NORMAL Platelet Morphology Comment NORMAL Polychromasia 5.6 % Sickle Cells 2+ Target Cells 2+ Ovalocytes 1+ [place] Bodies PRESENT Keratocytes 1+ Reticulocyte Count 14.5 % Absolute Reticulocyte Count 369.5 MIL/L Blood Urea Nitrogen 7 MG/DL Creatinine 0.90 MG/DL Random Glucose 87 MG/DL Total Protein 8.1 GM/DL Albumin 3.2 GM/DL Calcium Level 8.5 MG/DL Alkaline Phosphatase 153 U/L Aspartate Amino Transf (AST/SGOT) 100 U/L Alanine Aminotransferase (ALT/SGPT) 62 U/L Total Bilirubin 2.6 MG/DL Sodium Level 141 MEQ/L Potassium Level 3.9 MEQ/L Chloride Level 108 MEQ/L Carbon Dioxide Level 25.9 MEQ/L Anion Gap 7 MEQ/L Estimat Glomerular Filtration Rate 87 ML/MIN Total Creatine Kinase 35 U/L Troponin I LESS THAN 0.02 NG/ML Lipase 184 U/L Urine Collection Type CLEAN CATCH Urine Color YELLOW Urine Turbidity CLEAR Urine pH 7.0 Urine Specific [place] 1.020 Urine Protein 100 mg/dL Urine Glucose (UA) NEG mg/dL Urine Ketones NEG mg/dL Urine Occult Blood LARGE Urine Nitrite NEG Urine Bilirubin NEG Urine Urobilinogen 2.0 MG/DL Urine Leukocyte Esterase NEG Urine RBC 10-14 /hpf Urine WBC 0-2 /hpf Urine Squamous Epithelial Cells > 8 /hpf Urine Renal Epithelial Cells 0-5 /hpf Urine Bacteria FEW /hpf Microscopic Urinalysis Comment CULT NOT INDICATED Urine Collection Time 09:50 Last 24 hours Impressions Chest X-Ray 05/28/17 0842 Signed Impressions: Service Date/Time: Sunday, May 28, 2017 08:50 - CONCLUSION: No significant change has occurred. Derrell Perez MD Differential Diagnosis Vaso-occlusive crisis, critical anemia, uncontrolled pain, acute chest syndrome Narrative Course The patient was placed on a director global development. IV access was established. Labs, imaging were performed. Patient was given IV fluids and IV Dilaudid and Zofran with marked improvement in pain. Upon reassessment at 11:48am just prior to discharge, patient is awake, alert, appropriate. She is sitting up in the bed and has been ambulatory in the emergency department. She tells me she is feeling much better. She is breathing easily with clear lung sounds and normal oxygen saturations on room air. She has been afebrile in the emergency department. Her hemoglobin is improved after the blood transfusion yesterday. She states that her pain is now well controlled. We discussed the results of her workup. She is stable for discharge with supportive care and close outpatient follow-up with her lifestyle coordinator. Patient understands the importance of close outpatient follow-up. She understands she may require further testing and treatment as an outpatient. She understands strict return indications. She is comfortable with this plan and eager to go home. Diagnosis Primary Impression: Sickle cell anemia with crisis Referrals: Lilo Shea MD 3 days Patient Instructions: General Instructions, Narcotic given in the ED, Sickle Cell Crisis (ED) Additional Instructions: Drink plenty of fluids to stay well hydrated. Continue current home pain medication. Follow-up closely with primary physician and lifestyle coordinator. Return with worsening symptoms. Med/Other Pt SpecificInfo: No Change to Meds Disposition: 01 DISCHARGE HOME Condition: Stable Zari Fuentes MD May 28, 2017 09:24
[2017-05-28 09:30] VITALS: O2SAT 93
[2017-05-28] MEDS ORDERED: diphenhydrAMINE HCL 25 MG CAP PO ONE (09:30)
[2017-05-28 09:40] LABS: BANDS 2 % (0-6); CORRECTED NUCLEATED RBC 40 /100 WBC (0-0); CORRECTED WBC 9.5 TH/MM3 (4.0-11.0); KERATOCYTES 1+ (NORMAL); LYMPHOCYTES 44 % (9-44); MONOCYTES 7 % (0-8); NEUTROPHIL # MANUAL DIFF 3.8 TH/MM3 (1.8-7.7); NUCLEATED RED BLOOD CELL 40 (0-0); OVALOCYTES 1+ (NORMAL); POLYS (SEG NEUTROPHILS) 38 % (16-70); SICKLE CELLS 2+ (NORMAL); TARGET CELLS 2+ (NORMAL)
[2017-05-28 09:42] LABS: HOWELL-JOLLY BODIES PRESENT (NONE SEEN); POLYCHROMASIA 5.6 % (0.0-1.9)
[2017-05-28 09:50] LABS: CALCIUM 8.5 MG/DL (8.5-10.1)
[2017-05-28 09:51] LABS: ALBUMIN 3.2 GM/DL (3.4-5.0); BICARBONATE 25.9 MEQ/L (21.0-32.0); BLOOD UREA NITROGEN 7 MG/DL (7-18); GLUCOSE,RANDOM 87 MG/DL (74-106)
[2017-05-28 09:54] LABS: ALT (GPT) 62 U/L (10-53); AST (GOT) 100 U/L (15-37); GLOMERULAR FILTRATION RATE 87 ML/MIN (>89)
[2017-05-28 09:55] LABS: TOTAL BILIRUBIN ADULT 2.6 MG/DL (0.2-1.0); TOTAL PROTEIN 8.1 GM/DL (6.4-8.2)
[2017-05-28 09:56] LABS: CHLORIDE 108 MEQ/L (98-107); SODIUM (NA) 141 MEQ/L (136-145)
[2017-05-28 09:57] LABS: BILIRUBIN, URINE NEG (NEG); BLOOD, URINE LARGE (NEG); GLUCOSE,URINE NEG (NEG); KETONE, URINE NEG (NEG); NITRITE,URINE NEG (NEG); URINE COLOR YELLOW (YELLW/STRAW); URINE LEUKOCYTE ESTERASE NEG (NEG)
[2017-05-28 09:57] LABS: ALKALINE PHOSPHATASE 153 U/L (45-117)
[2017-05-28 09:59] LABS: TROPONIN I LESS THAN 0.02 NG/ML (0.02-0.05)
[2017-05-28 10:03] LABS: BACTERIA, URINE FEW /hpf; RENAL EPITHELIAL CELLS 0-5 /hpf; SQUAMOUS EPITHELIAL CELL URINE > 8 /hpf (0-5); WBC, URINE 0-2 /hpf (0-5)
[2017-05-28 10:48] LABS: RETIC # 369.5 MIL/L (20.0-150.0); RETIC % 14.5 % (0.4-3.0)
[2017-05-28 11:21] VITALS: BP 148/94; PULSE 85; RESP 16; O2SAT 94
[2017-05-28 12:33] VITALS: BP 144/91
== END 2017-05-28 12:43 | disposition home or self-care (01) ==
LOC: PHED 08:28
DX: D57.00 Hb-SS disease with crisis, unspecified (principal); I10 Essential (primary) hypertension; R06.02 Shortness of breath
CPT/HCPCS: 71046; 80053; 81001; 82550; 83690; 84484; 84703; 85007; 85027; 85044; 87040; 96361; 96374; 96375; 99284; J1170; J1642; J2405; J7030

== ENCOUNTER 2017-06-23 14:09 | Inpatient (IN) | payer OTHER, MEDICAID, MEDICARE ==
[~2017-06-23] VITALS: Ht 162.6 cm; Wt 67.1 kg
[2017-06-23 14:10] VITALS: BP 116/70; PULSE 111; RESP 16; TEMP 99.5; O2SAT 94
[2017-06-23] MEDS ORDERED: SODIUM CHLOR 0.9% 1000 ML INJ 1,000 ML IV ONE ×2 (15:07→16:30)
[2017-06-23] MEDS ORDERED: SODIUM CHLORIDE 0.9% FLUSH 10 ML FLUSH IVF PRN (15:15)
--- NOTE | 2017-06-23 15:20 | PD ---
HPI . Sickle cell crisis Chief Complaint: Sickle Cell Time Seen by Provider: 15:07 Travel History International Travel<30 days: No Contact w/Intl Traveler<30days: No Traveled to known affect area: No History of Present Illness HPI Patient presents complaining with a 3 day history of sickle cell crisis. She has been taking her oral Dilaudid with very temporary relief of her pain. She states that her pain causes nausea and vomiting. She denies fever. She denies chest pain or shortness of breath. She rates her pain 9/10. The patient was seen here on 05/10 for sickle cell crisis and was treated with lidocaine with good relief of her pain. However, she refuses that today because she states that she does not like the way that it made her feel. PFSH Past Medical History Hx Anticoagulant Therapy: Yes (ASA) Anemia: Yes (SICKLE CELL) Arthritis: No Asthma: No Autoimmune Disease: No Blood Disorders: Yes (SICKLE CELL) Anxiety: No Depression: No Heart Rhythm Problems: No Cancer: No Cardiovascular Problems: Yes (htn on meds) High Cholesterol: No Chemotherapy: No Chest Pain: No Congestive Heart Failure: No COPD: No Cerebrovascular Accident: No Diabetes: No Diminished Hearing: No Deep Vein Thrombosis: Yes (HX LEFT ARM ) Endocrine: No Gastrointestinal Disorders: Yes GERD: No Glaucoma: No Genitourinary: Yes Headaches: Yes Hepatitis: No Hiatal Hernia: No Heparin Induced Thrombocytopen: No Hypertension: Yes Immune Disorder: Yes (SICKLE CELL) Implanted Vascular Access Dvce: Yes ( RIGHT POWER INFUSAPORT) Kidney Stones: No Musculoskeletal: Yes (SCOLIOSIS) Neurologic: Yes Psychiatric: No Reproductive: No Respiratory: No Immunizations Current: Yes Migraines: Yes Myocardial Infarction: No Pneumonia: Yes Radiation Therapy: No Renal Failure: No Seizures: No Sickle Cell Disease: Yes Sleep Apnea: No Thyroid Disease: No Ulcer: No PNEUMOCCOCAL Vaccine (Year): 2008 ?: Not Menopausal: No : 5 Para: 2 Miscarriage: 3 : 0 Ovarian Cysts: Yes Past Surgical History Abdominal Surgery: Yes (cholecystectomy) AICD: No Appendectomy: Yes Arteriovenous Shunt: No Body Medical Devices: CATIA IN UPPER BACK Cardiac Surgery: No Cholecystectomy: Yes Ear Surgery: No Endocrine Surgery: No Eye Surgery: No Genitourinary Surgery: No Gynecologic Surgery: No Hysterectomy: No Insulin Pump: No Joint Replacement: Yes (R HIP REPLACEMENT 2011, L HIP 2014) Neurologic Surgery: No Oral Surgery: No Pacemaker: No Thoracic Surgery: No Other Surgery: Yes (INSERTION OF INFUSA PORTX 3) Social History Alcohol Use: Yes (OCCASIONAL WINE) Tobacco Use: No Substance Use: No Allergies-Medications (Allergen,Severity, Reaction): Coded Allergies: ketorolac (Verified Allergy, Severe, Itching, 06/23/17) morphine (Verified Allergy, Mild, Swelling, 06/23/17) ibuprofen (Verified Adverse Reaction, Severe, Urinary Freq (Inc/Dec), 06/23) RENAL FAILURE methadone (Verified Adverse Reaction, Severe, DEPRESSION, 06/23/17) Reported Meds & Prescriptions Reported Meds & Active Scripts Active Reported Dilaudid (Hydromorphone HCl) 4 Mg Tab 4 Mg PO Q6H PRN Hydrea (Hydroxyurea) 500 Mg Cap 500 Mg PO TID Folic Acid 400 Mcg Tab 1 Mg PO DAILY Aspirin 81 Mg Chew 81 Mg CHEW DAILY Amlodipine (Amlodipine Besylate) 5 Mg Tab 5 Mg PO DAILY Review of Systems Except as stated in HPI: all other systems reviewed are Neg General / Constitutional: No: Fever, Chills Cardiovascular: No: Chest Pain or Discomfort Respiratory: No: Shortness of Breath Gastrointestinal: Positive: Nausea, Vomiting, No: Abdominal Pain Physical Exam Narrative GENERAL: Awake and alert and in no acute distress. SKIN: Warm and dry. HEAD: Normocephalic/atraumatic. EYES: Pupils are equal. Extraocular movements are intact. NECK: Normal range of motion. CARDIOVASCULAR: Regular rate and rhythm. Sinus tachycardia. RESPIRATORY: Nonlabored respirations. MUSCULOSKELETAL: Atraumatic. NEUROLOGICAL: Nonfocal. PSYCHIATRIC: Appropriate mood and affect. Data Data Last Documented VS Vital Signs Date Time Temp Pulse Resp B/P (MAP) Pulse Ox O2 Delivery O2 Flow Rate FiO2 06/23/17 16:33 105 15 125/75 (92) 97 Room Air 06/23/17 14:10 99.5 Orders Orders Complete Blood Count With Diff (06/23/17 15:07) Comprehensive Metabolic Panel (06/23/17 15:07) Retic Count (06/23/17 15:07) Iv Access Insert/Monitor (06/23/17 15:07) Sodium Chloride 0.9% Flush (Ns Flush) (06/23/17 15:15) Sodium Chlor 0.9% 1000 Ml Inj (Ns 1000 M (06/23/17 15:07) Diphenhydramine Inj (Benadryl Inj) (06/23/17 15:30) Hydromorphone Pf Inj (Dilaudid Pf Inj) (06/23/17 15:30) Hydromorphone Pf Inj (Dilaudid Pf Inj) (06/23/17 16:30) Sodium Chlor 0.9% 1000 Ml Inj (Ns 1000 M (06/23/17 16:30) Labs Laboratory Tests Test 06/23/17 16:25 White Blood Count 17.7 TH/MM3 Red Blood Count 2.10 MIL/MM3 Hemoglobin 7.0 GM/DL Hematocrit 19.6 % Mean Corpuscular Volume 93.1 FL Mean Corpuscular Hemoglobin 33.2 PG Mean Corpuscular Hemoglobin Concent 35.7 % Red Cell Distribution Width 27.5 % Platelet Count 297 TH/MM3 Mean Platelet Volume 8.3 FL CBC Comment AUTO DIFF Blood Urea Nitrogen 11 MG/DL Creatinine 1.00 MG/DL Random Glucose 88 MG/DL Total Protein 7.5 GM/DL Albumin 3.2 GM/DL Calcium Level 7.9 MG/DL Alkaline Phosphatase 129 U/L Aspartate Amino Transf (AST/SGOT) 66 U/L Alanine Aminotransferase (ALT/SGPT) 37 U/L Total Bilirubin 2.5 MG/DL Sodium Level 143 MEQ/L Potassium Level 4.0 MEQ/L Chloride Level 110 MEQ/L Carbon Dioxide Level 27.5 MEQ/L Anion Gap 6 MEQ/L Estimat Glomerular Filtration Rate 77 ML/MIN MDM Medical Decision Making Medical Screen Exam Complete: Yes Emergency Medical Condition: Yes Medical Record Reviewed: Yes (The patient was seen here on 05/28 and treated with IV fluids and IV Dilaudid. She was seen in the clinic on 05/24 and treated with IV fluids and Dilaudid.) Differential Diagnosis My differential diagnosis of sickle cell disease includes but is not limited to vaso-occlusive crisis, acute chest syndrome, occult infection, electrolyte disturbance, drug-seeking behavior. Narrative Course This patient presents complaining with sickle cell crisis. Her pain is temporarily relieved by Dilaudid. However, the pain quickly recurs. She reports allergies to Toradol and morphine. She declines lidocaine. She will be treated with IV fluids and IV Benadryl and Dilaudid. Patient reports that her pain is improved. She states that she is normally transfused if her hemoglobin drops below 7. She states that her hemoglobin was 8.8 earlier in the week. CBC & BMP Diagram 06/23/17 16:25 Total Protein 7.5 #, Albumin 3.2 L, Calcium Level 7.9 L, Alkaline Phosphatase 129 H, Aspartate Amino Transf (AST/SGOT) 66 H, Alanine Aminotransferase (ALT/ SGPT) 37, Total Bilirubin 2.5 H I will ask for observation admission to follow her H&H. Physician Communication Physician Communication Dr. De Jesus states that this meets criteria for full admission. Diagnosis Primary Impression: Sickle cell anemia Qualified Codes: D57.00 - Hb-SS disease with crisis, unspecified Admitting Information Admitting Physician Requests: Admit Condition: Stable Jennifer Sandoval MD Jun 23, 2017 15:20
[2017-06-23] MEDS ORDERED: diphenhydrAMINE HCL 50 MG/ML VIAL IV PUSH ONE (15:30)
[2017-06-23] MEDS ORDERED: HYDROmorphone HCL PF 2 MG/ML VIAL IV PUSH ONE ×2 (15:30→16:30)
[2017-06-23 16:33] VITALS: BP 125/75; PULSE 105; RESP 15; O2SAT 97
[2017-06-23 16:51] LABS: CHLORIDE 110 MEQ/L (98-107); SODIUM (NA) 143 MEQ/L (136-145)
[2017-06-23 16:53] LABS: MEAN CELL VOLUME 93.1 FL (80.0-100.0); MEAN CORPUSCULAR HEMOGLOBIN 33.2 PG (27.0-34.0); MEAN CORPUSCULAR HGB CONC 35.7 % (32.0-36.0); MEAN PLATELET VOLUME 8.3 FL (7.0-11.0); PLATELET COUNT 297 TH/MM3 (150-450); RED CELL DISTRIBUTION WIDTH 27.5 % (11.6-17.2); WHITE BLOOD COUNT 17.7 TH/MM3 (4.0-11.0)
[2017-06-23 16:55] LABS: ALBUMIN 3.2 GM/DL (3.4-5.0); BICARBONATE 27.5 MEQ/L (21.0-32.0); BLOOD UREA NITROGEN 11 MG/DL (7-18); CALCIUM 7.9 MG/DL (8.5-10.1); GLUCOSE,RANDOM 88 MG/DL (74-106)
[2017-06-23 16:58] LABS: ALT (GPT) 37 U/L (10-53); AST (GOT) 66 U/L (15-37); GLOMERULAR FILTRATION RATE 77 ML/MIN (>89)
[2017-06-23 17:00] LABS: TOTAL BILIRUBIN ADULT 2.5 MG/DL (0.2-1.0); TOTAL PROTEIN 7.5 GM/DL (6.4-8.2)
[2017-06-23 17:01] LABS: ALKALINE PHOSPHATASE 129 U/L (45-117)
[2017-06-23 17:04] LABS: HEMATOCRIT 19.6 % (35.0-46.0)
[2017-06-23 17:30] LABS: CORRECTED NUCLEATED RBC 4 /100 WBC (0-0); LYMPHOCYTES 32 % (9-44); MONOCYTES 4 % (0-8); NEUTROPHIL # MANUAL DIFF 10.4 TH/MM3 (1.8-7.7); NUCLEATED RED BLOOD CELL 4 (0-0); POLYS (SEG NEUTROPHILS) 59 % (16-70); SICKLE CELLS 3+ (NORMAL)
[2017-06-23] MEDS ORDERED: HYDROmorphone HCL PF 1 MG/ML VIAL IV PUSH PRN ×2 (17:30)
[2017-06-23] MEDS ORDERED: NALOXONE HCL 0.4 MG/ML AMP IV PUSH PRN (17:30)
[2017-06-23] MEDS ORDERED: MAGNESIUM HYDROXIDE SUSP 30 ML CUP PO PRN (17:30)
[2017-06-23 17:31] LABS: KERATOCYTES 1+ (NORMAL); OVALOCYTES 2+ (NORMAL); STOMATOCYTES 1+ (NORMAL); TARGET CELLS 1+ (NORMAL); TEARDROP RBCS 1+ (NORMAL)
[2017-06-23 18:16] LABS: RETIC # 316.4 MIL/L (20.0-150.0); RETIC % 15.4 % (0.4-3.0)
--- NOTE | 2017-06-23 18:31 | HHI.HP ---
[facility] Nestor Murillo MD Admission Diagnosis SCC with anemia Diagnoses: (1) Systemic inflammatory response syndrome Diagnosis: Principal (2) Sickle cell anemia Diagnosis: Principal (3) Generalized pain Diagnosis: Principal (4) Leukocytosis Diagnosis: Principal (5) Hyperbilirubinemia Diagnosis: Principal (6) Elevated LFTs Diagnosis: Principal Chief Complaint: Uncontrolled Generalized pain Travel History International Travel<30 Days: No Contact w/Intl Traveler <30 Da: No Traveled to Known Affected Are: No Sepsis Criteria SIRS Criteria (2 or more): Heart rate over 90, WBC > 57111, < 4000 or > 10% bands History of Present Illness 36 year-old female with known history of sickle cell anemia with multiple and recurrent admissions to the hospital for crisis, transfusions who presented to hospital for evaluation of generalized pain. Patient appears to have been done well and not have any admissions since February 2017. However, this is her fifth evaluation in emergency department. 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 this morning she states that she started developing pain that was not controlled with her pain medication that it progressively got worse after she Took her pain medication. She did not contact her school library media program director for recommendations. She had an episode of nausea and vomiting this morning. Because the pain progressively got worse she came to the hospital for evaluation. Patient was given IV fluids, Dilaudid emergency department. Laboratory studies were performed which did acute on chronic anemia, chronic liver enzyme/bilirubin elevation, leukocytosis. It was recommended by the ER physician that the patient be admitted for sickle cell crisis. Upon evaluating patient she was sitting up in the bed. No obvious signs of pain. Patient did indicate that she has the typical sickle cell pain with her extremities, abdomen she indicated that she had chest pain but not the cardiac chest pain, she only gets to sickle cell chest pain. She denied any shortness of breath, difficulty breathing, hematochezia, hematemesis, diarrhea, constipation. Review of Systems Cardiovascular: COMPLAINS OF: Chest pain Gastrointestinal: COMPLAINS OF: Abdominal pain Musculoskeletal: COMPLAINS OF: Joint pain Except as stated in HPI: all other systems reviewed are Neg Past Family Social History Past Medical History Sickle cell disease History of avascular necrosis chronic kidney disease due to blood transfusion iron overload History of DVT left arm scoliosis migraines because of medications. Past Surgical History Right total hip replacement 2011 Left hip replacement 2014 cholecystectomy 2003 back surgery at age 15 (joey placed) [id number] R chest Reported Medications Reported Meds & Active Scripts Active Reported Dilaudid (Hydromorphone HCl) 4 Mg Tab 4 Mg PO Q6H PRN Hydrea (Hydroxyurea) 500 Mg Cap 500 Mg PO TID Folic Acid 400 Mcg Tab 1 Mg PO DAILY Aspirin 81 Mg Chew 81 Mg CHEW DAILY Amlodipine (Amlodipine Besylate) 5 Mg Tab 5 Mg PO DAILY Allergies: Coded Allergies: ketorolac (Verified Allergy, Severe, Itching, 06/23/17) morphine (Verified Allergy, Mild, Swelling, 06/23/17) ibuprofen (Verified Adverse Reaction, Severe, Urinary Freq (Inc/Dec), 06/23) RENAL FAILURE methadone (Verified Adverse Reaction, Severe, DEPRESSION, 06/23/17) Family History Reviewed is significant for mother having hypertension and sickle cell, father with diabetes hypertension and sickle cell Social History Patient denies any tobacco, alcohol or illicit drugs Physical Exam Vital Signs Vital Signs Date Time Temp Pulse Resp B/P (MAP) Pulse Ox O2 Delivery O2 Flow Rate FiO2 06/23/17 16:33 105 15 125/75 (92) 97 Room Air 06/23/17 14:10 99.5 111 16 116/70 (85) 94 Physical Exam GENERAL: Well-developed, well-nourished, in no acute distress. alert and orientated HEENT: Head is normocephalic without any lesions or masses noted. Facial features are symmetric. Eyes: Pupils equal round reactive to light. Extraocular muscles are intact. Conjunctivae were clear. Oropharyngeal: Pharynx without any erythema edema. Tongue is midline without deviation. Buccal mucosa is moist without any masses or lesions NECK: Supple without any masses. Trachea midline no deviation. No JVD, no bruits are appreciated CARDIAC: Regular rhythm, regular rate. S1/S2 are heard. No murmurs gallops or rubs. Mediport noted in the right upper chest LUNGS: Clear to auscultation bilaterally. No wheeze, rhonchi or rales. No use of accessory muscles on inspiration or expiration. ABDOMEN: Soft, nontender. Nondistended. Bowel sounds heard in all 4 quadrants. No organomegaly or masses. Negative rebound, negative guarding EXTREMITIES: No edema, pulses are equal bilaterally. No cyanosis or clubbing NEUROLOGY: Mood and affect appear appropriate. Cranial nerves II through XII grossly intact. Muscle strength 5/5 in upper and lower extremities bilaterally. Deep tendon reflexes are 2+ in upper and lower extremities bilaterally. Laboratory Laboratory Tests Test 06/23/17 16:25 White Blood Count 17.7 Red Blood Count 2.10 Hemoglobin 7.0 Hematocrit 19.6 Mean Corpuscular Volume 93.1 Mean Corpuscular Hemoglobin 33.2 Mean Corpuscular Hemoglobin Concent 35.7 Red Cell Distribution Width 27.5 Platelet Count 297 Mean Platelet Volume 8.3 CBC Comment AUTO DIFF Differential Total Cells Counted 100 Neutrophils % (Manual) 59 Lymphocytes % 32 Monocytes % 4 Eosinophils % 5 Neutrophils # (Manual) 10.4 Nucleated Red Blood Cells 4 Differential Comment FINAL DIFF MANUAL Platelet Estimate NORMAL Platelet Morphology Comment NORMAL Sickle Cells 3+ Target Cells 1+ Tear Drop Cells 1+ Ovalocytes 2+ Stomatocytes 1+ Keratocytes 1+ Blood Urea Nitrogen 11 Creatinine 1.00 Random Glucose 88 Total Protein 7.5 Albumin 3.2 Calcium Level 7.9 Alkaline Phosphatase 129 Aspartate Amino Transf (AST/SGOT) 66 Alanine Aminotransferase (ALT/SGPT) 37 Total Bilirubin 2.5 Sodium Level 143 Potassium Level 4.0 Chloride Level 110 Carbon Dioxide Level 27.5 Anion Gap 6 Estimat Glomerular Filtration Rate 77 Result Diagram: 06/23/17 1625 06/23/17 1625 Caprini VTE Risk Assessment Caprini VTE Risk Assessment: Mod/High Risk (score >= 2) Caprini Risk Assessment Model Point Value = 1 Point Value = 2 Point Value = 3 Point Value = 5 Age 41-60 Minor surgery BMI > 25 kg/m2 Swollen legs Varicose veins or History of unexplained or recurrent spontaneous Oral contraceptives or hormone replacement Sepsis (< 1 month) Serious lung disease, including pneumonia (< 1 month) Abnormal pulmonary function Acute myocardial infarction Congestive heart failure (< 1 month) History of inflammatory bowel disease Medical patient at bed rest Age 61-74 Arthroscopic surgery Major open surgery (> 45 min) Laparoscopic surgery (> 45 min) Malignancy Confined to bed (> 72 hours) Immobilizing plaster cast Central venous access Age >= 75 History of VTE Family history of VTE Factor V Leiden Prothrombin [id number] Lupus anticoagulant Anticardiolipin antibodies Elevated serum homocysteine Heparin-induced thrombocytopenia Other congenital or acquired thrombophilia Stroke (< 1 month) Elective arthroplasty Hip, pelvis, or leg fracture Acute spinal cord injury (< 1 month) Prophylaxis Regimen Total Risk Factor Score Risk Level Prophylaxis Regimen 0-1 Low Early ambulation 2 Moderate Order ONE of the following: *Sequential Compression Device (SCD) *Heparin 5000 units SQ BID 3-4 Higher Order ONE of the following medications: *Heparin 5000 units SQ TID *Enoxaparin/Lovenox 40 mg SQ daily (WT < 150 kg, CrCl > 30 mL/min) *Enoxaparin/Lovenox 30 mg SQ daily (WT < 150 kg, CrCl > 10-29 mL/min) *Enoxaparin/Lovenox 30 mg SQ BID (WT < 150 kg, CrCl > 30 mL/min) AND/OR *Sequential Compression Device (SCD) 5 or more Highest Order ONE of the following medications: *Heparin 5000 units SQ TID (Preferred with Epidurals) *Enoxaparin/Lovenox 40 mg SQ daily (WT < 150 kg, CrCl > 30 mL/min) *Enoxaparin/Lovenox 30 mg SQ daily (WT < 150 kg, CrCl > 10-29 mL/min) *Enoxaparin/Lovenox 30 mg SQ BID (WT < 150 kg, CrCl > 30 mL/min) AND *Sequential Compression Device (SCD) Assessment and Plan Assessment and Plan Systemic inflammatory response syndrome Patient is criteria with leukocytosis, tachycardia, no signs of infection, likely secondary to sickle cell disease Obtain chest x-ray, urinalysis, blood cultures Sickle cell with uncontrolled pain Resume patient's home medication Dilaudid 4 mg every 6 hours Dilaudid IV if unable to take by mouth Continue Hydrea/folic acid Continue IV fluids Anemia related to sickle cell Patient does usually required transfusions intermittently Transfuse if hemoglobin below 7.0 Hyperbilirubinemia, elevated liver enzymes review of medical records patient does have history of chronic elevations, there is some mild worsening today Continue monitor liver enzymes Chronic kidney disease stage II Continue IV fluids Continue monitor renal function next line avoid nephrotoxins DVT prevention Sequential compression devices Physician Certification 2 Midnight Certification Type: Admission for Inpatient Services Order for Inpatient Services The services are ordered in accordance with Medicare regulations or non- Medicare payer requirements, as applicable. In the case of services not specified as inpatient-only, they are appropriately provided as inpatient services in accordance with the 2-midnight benchmark. Estimated LOS (days): 3 days is the estimated time the patient will need to remain in the hospital, assuming treatment plan goals are met and no additional complications. Post-Hospital Plan: Not yet determined Sathya Conklin Jun 23, 2017 18:31
[2017-06-23 18:39] LABS: BILIRUBIN, URINE NEG (NEG); BLOOD, URINE MOD (NEG); GLUCOSE,URINE NEG (NEG); KETONE, URINE NEG (NEG); NITRITE,URINE NEG (NEG); URINE COLOR YELLOW (YELLW/STRAW); URINE LEUKOCYTE ESTERASE NEG (NEG)
[2017-06-23] MEDS: SODIUM CHLOR 0.9% 1000 ML INJ 1,000 ML IV SCH (18:45)
[2017-06-23 18:46] LABS: RBC, URINE 0-3 /hpf (0-3); SQUAMOUS EPITHELIAL CELL URINE 0-5 /hpf (0-5); WBC, URINE 0-2 /hpf (0-5)
[2017-06-23 19:03] VITALS: BP 134/79; PULSE 108; RESP 16; O2SAT 96
--- NOTE | 2017-06-23 19:04 | RADRPT ---
EXAM DATE/TIME: 06/23/2017 18:27 [facility] COMPARISON: CHEST PA & LAT, May 28, 2017, 8:50. INDICATIONS : Sickle cell crisis MEDICAL HISTORY : Deep venous thrombosis. Sickle Cell disease. Hypertension. Pneumonia. Scoliosis SURGICAL HISTORY : Appendectomy. Cholecystectomy. Spinal rods placed. Infusaport ENCOUNTER: Initial ACUITY: 1 day PAIN SCORE: 5/10 LOCATION: Bilateral chest FINDINGS: There is surgical hardware in the mid and lower thoracic spine. The heart is upper limits of normal f or size. There is mild prominence of the interstitial markings. An alveolar consolidation is not seen . No effusion is seen. There is postoperative change at the 7th through 9th ribs on the right. There is a CT compatible Acilft-f-Grgm in place from the right internal jugular approach. Clips are seen in the right upper quadrant from prior cholecystectomy. CONCLUSION: Mild prominence of the interstitial markings throughout which may represent pulmonary venous hyperten zaira or minimal edema. Dejon Meléndez MD on June 23, 2017 at 19:00 Board Certified Radiologist. This report was verified electronically.
[2017-06-23] MEDS: ONDANSETRON HCL 4 MG/2 ML VIAL IVP PRN (20:53)
[2017-06-23 20:57] VITALS: BP 137/90; TEMP 98.7
[2017-06-23 21:15] VITALS: BP 129/69; PULSE 115; RESP 20; TEMP 98.4; O2SAT 95
[2017-06-23] MEDS: SODIUM CHLORIDE 0.9% FLUSH 10 ML FLUSH IV FLUSH SCH (22:12)
[2017-06-23] MEDS: HYDROmorphone HCL PF 2 MG/ML VIAL IV PUSH PRN (22:12)
[2017-06-23] MEDS ORDERED: HYDROmorphone HCL PF 2 MG/ML VIAL IV PUSH PRN (22:15)
[2017-06-24] VITALS: BP 122/75; PULSE 113; RESP 20; TEMP 98.2; O2SAT 91
[2017-06-24] MEDS: HYDROmorphone HCL PF 2 MG/ML VIAL IV PUSH PRN ×2 (01:56→05:39)
[2017-06-24] MEDS: SODIUM CHLORIDE 0.9% FLUSH 10 ML FLUSH IV FLUSH PRN ×3 (01:56→06:57)
[2017-06-24] MEDS: SODIUM CHLOR 0.9% 1000 ML INJ 1,000 ML IV SCH ×3 (01:58→17:59)
[2017-06-24] MEDS ORDERED: SODIUM CHLORIDE 0.9% FLUSH 10 ML FLUSH IV FLUSH PRN (06:30)
[2017-06-24] MEDS ORDERED: diphenhydrAMINE HCL 50 MG/ML VIAL IV PUSH ONE (06:45)
[2017-06-24] MEDS ORDERED: diphenhydrAMINE HCL 25 MG CAP PO PRN (07:30)
[2017-06-24 07:56] VITALS: BP 117/75; PULSE 92; RESP 20; TEMP 97.7; O2SAT 98
[2017-06-24] MEDS: HYDROmorphone HCL 4 MG TAB PO PRN ×2 (09:41→20:15)
[2017-06-24] MEDS: amLODIPine BESYLATE 5 MG TAB PO SCH (09:42)
[2017-06-24] MEDS: FOLIC ACID 1 MG TAB PO SCH (09:42)
[2017-06-24] MEDS: SODIUM CHLORIDE 0.9% FLUSH 10 ML FLUSH IV FLUSH SCH ×2 (09:42→20:14)
[2017-06-24] MEDS: HYDROXYUREA 500 MG CAP PO SCH ×3 (09:44→18:03)
[2017-06-24 10:10] LABS: BASOPHIL # 0.2 TH/MM3 (0-0.2); BASOPHIL % 1.5 % (0.0-2.0); EOSINOPHIL # 1.2 TH/MM3 (0-0.4); EOSINOPHIL % 7.7 % (0.0-4.0); LYMPH % 34.2 % (9.0-44.0); LYMPHOCYTE # 5.3 TH/MM3 (1.0-4.8); MEAN CORPUSCULAR HEMOGLOBIN 31.5 PG (27.0-34.0); MEAN CORPUSCULAR HGB CONC 34.3 % (32.0-36.0); MEAN PLATELET VOLUME 8.4 FL (7.0-11.0); MONO % 11.2 % (0.0-8.0); MONOCYTE # 1.7 TH/MM3 (0-0.9); NEUT % 45.4 % (16.0-70.0); PLATELET COUNT 313 TH/MM3 (150-450); RED BLOOD COUNT 2.14 MIL/MM3 (4.00-5.30); RED CELL DISTRIBUTION WIDTH 27.9 % (11.6-17.2); WHITE BLOOD COUNT 15.4 TH/MM3 (4.0-11.0)
[2017-06-24 10:15] LABS: HEMATOCRIT 19.7 % (35.0-46.0)
[2017-06-24 10:26] LABS: CHLORIDE 110 MEQ/L (98-107); SODIUM (NA) 142 MEQ/L (136-145)
[2017-06-24 10:33] LABS: CALCIUM 8.1 MG/DL (8.5-10.1)
[2017-06-24 10:34] LABS: ALBUMIN 2.9 GM/DL (3.4-5.0); BICARBONATE 25.8 MEQ/L (21.0-32.0); BLOOD UREA NITROGEN 7 MG/DL (7-18); GLUCOSE,RANDOM 113 MG/DL (74-106)
[2017-06-24 10:37] LABS: ALT (GPT) 33 U/L (10-53); AST (GOT) 60 U/L (15-37); CREATININE 0.97 MG/DL (0.50-1.00); GLOMERULAR FILTRATION RATE 80 ML/MIN (>89)
[2017-06-24 10:38] LABS: TOTAL BILIRUBIN ADULT 1.6 MG/DL (0.2-1.0)
[2017-06-24 10:39] LABS: ALKALINE PHOSPHATASE 115 U/L (45-117)
--- NOTE | 2017-06-24 11:24 | HHI.PR ---
Subjective Remarks Patient seen and examined today for follow-up on generalized pain with history of sickle cell anemia. Patient was given IV Dilaudid throughout the evening. Patient started on by mouth Dilaudid today. She is resting comfortably in bed. No objective signs of pain. Laboratory studies are reviewed which does not show any worsening condition. Patient still with copious IV fluid administration. Patient still indicating that she is having pain 5/10 on a pain scale. She is tolerating food. No recurrent nausea or vomiting. Objective Vitals Vital Signs Date Time Temp Pulse Resp B/P (MAP) Pulse Ox O2 Delivery O2 Flow Rate FiO2 06/24/17 07:56 97.7 92 20 117/75 (89) 98 06/24/17 00:00 98.2 113 20 122/75 (91) 91 06/23/17 21:15 98.4 115 20 129/69 (89) 95 06/23/17 20:57 98.7 113 16 137/90 (106) 94 06/23/17 19:03 108 16 134/79 (97) 96 Room Air 06/23/17 19:03 108 16 96 Room Air 06/23/17 16:33 105 15 125/75 (92) 97 Room Air 06/23/17 14:10 99.5 111 16 116/70 (85) 94 I/O 06/23/17 06/23/17 06/23/17 06/24/17 06/24/17 06/24/17 07:00 15:00 23:00 07:00 15:00 23:00 Intake Total 2257 ml 1922 ml Output Total 300 ml Balance 1957 ml 1922 ml Intake Oral 960 ml IV Total 2257 ml 962 ml Output Emesis 300 ml # Voids 4 # Bowel Movements 0 Result Diagram: 06/24/17 0950 06/24/17 0950 Objective Remarks GENERAL: Well-developed, well-nourished, in no acute distress. alert and orientated HEENT: Head is normocephalic without any lesions or masses noted. Facial features are symmetric. Eyes: Extraocular muscles are intact. Conjunctivae were clear. NECK: Supple without any masses. Trachea midline no deviation. No JVD, CARDIAC: Regular rhythm, regular rate. S1/S2 are heard. No murmurs gallops or rubs. Mediport noted in right upper chest LUNGS: Clear to auscultation bilaterally. No wheeze, rhonchi or rales. No use of accessory muscles on inspiration or expiration. ABDOMEN: Soft, nontender. Nondistended. Bowel sounds heard in all 4 quadrants. No organomegaly or masses. Negative rebound, negative guarding EXTREMITIES: No edema, pulses are equal bilaterally. No cyanosis or clubbing NEUROLOGY: Mood and affect appear appropriate. Cranial nerves II through XII grossly intact. Moving all extremities, speech is clear Urinary Catheter: No Vascular Central Line Catheter: No A/P Assessment and Plan Systemic inflammatory response syndrome Patient is criteria with leukocytosis, tachycardia, no signs of infection, likely secondary to sickle cell disease Chest x-ray indicates possible pulmonary venous hypertension or mental edema , no infectious source was identified Blood cultures have no growth for 1 day Urinalysis was clear Sickle cell with uncontrolled pain Resume patient's home medication Dilaudid 4 mg every 6 hours Dilaudid IV for breakthrough pain Continue Hydrea/folic acid Continue IV fluids Anemia related to sickle cell Patient does usually required transfusions intermittently Transfuse if hemoglobin below 7.0 hemoglobin did not drop despite aggressive IV fluid hydration Hyperbilirubinemia, elevated liver enzymes, improving review of medical records patient does have history of chronic elevations, there is some mild worsening today Continue monitor liver enzymes Chronic kidney disease stage II, mild improvement Continue IV fluids Continue monitor renal function next line avoid nephrotoxins DVT prevention Sequential compression devices Sathya Conklin Jun 24, 2017 11:24
[2017-06-24] MEDS ORDERED: HYDROmorphone HCL PF 2 MG/ML VIAL IV PUSH PRN (11:30)
[2017-06-24 11:40] LABS: BANDS 2 % (0-6); BASOPHILS 1 % (0-2); CORRECTED NUCLEATED RBC 13 /100 WBC (0-0); CORRECTED WBC 13.6 TH/MM3 (4.0-11.0); LYMPHOCYTES 32 % (9-44); METAMYELOCYTES 1 % (0-1); MONOCYTES 2 % (0-8); NEUTROPHIL # MANUAL DIFF 7.8 TH/MM3 (1.8-7.7); NUCLEATED RED BLOOD CELL 13 (0-0); POLYS (SEG NEUTROPHILS) 54 % (16-70); TARGET CELLS 2+ (NORMAL)
[2017-06-24 11:41] LABS: KERATOCYTES 1+ (NORMAL); OVALOCYTES 2+ (NORMAL); SICKLE CELLS 2+ (NORMAL)
[2017-06-24 11:43] LABS: POLYCHROMASIA 3.6 % (0.0-1.9)
[2017-06-24 12:00] VITALS: BP 118/84; PULSE 82; RESP 20; TEMP 97.6; O2SAT 100
[2017-06-24] MEDS: ONDANSETRON HCL 4 MG/2 ML VIAL IVP PRN ×2 (14:02→20:14)
[2017-06-24 16:00] VITALS: BP 138/94; PULSE 87; RESP 20; TEMP 97.3; O2SAT 100
[2017-06-24 17:04] VITALS: O2SAT 97
[2017-06-24 20:00] VITALS: BP 132/81; PULSE 95; RESP 20; TEMP 96.2; O2SAT 93
[2017-06-25] VITALS: BP 112/67; PULSE 92; RESP 20; TEMP 97.8; O2SAT 97
[2017-06-25] MEDS: SODIUM CHLORIDE 0.9% FLUSH 10 ML FLUSH IV FLUSH PRN (02:10)
[2017-06-25] MEDS: SODIUM CHLOR 0.9% 1000 ML INJ 1,000 ML IV SCH (02:10)
[2017-06-25] MEDS: HYDROmorphone HCL 4 MG TAB PO PRN ×2 (02:14→08:23)
[2017-06-25] MEDS: ONDANSETRON HCL 4 MG/2 ML VIAL IVP PRN ×2 (02:14→09:12)
--- NOTE | 2017-06-25 08:13 | HHI.DCPOC ---
Discharge Care Plan Diagnosis: (1) Sickle cell anemia (2) Systemic inflammatory response syndrome (3) Generalized pain Goals to Promote Your Health * To prevent worsening of your condition and complications * To maintain your health at the optimal level Directions to Meet Your Goals Take your medications as prescribed Follow your dietary instruction Follow activity as directed Keep your appointments as scheduled Take your immunizations and boosters as scheduled If your symptoms worsen call your PCP, if no PCP go to Urgent Care Center or Emergency Room Smoking is Dangerous to Your Health. Avoid second hand smoke Call the 24-hour hour crisis hotline for domestic abuse at Sathya Conklin Jun 25, 2017 08:13
[2017-06-25] MEDS: amLODIPine BESYLATE 5 MG TAB PO SCH (08:23)
[2017-06-25] MEDS: FOLIC ACID 1 MG TAB PO SCH (08:23)
[2017-06-25] MEDS: HYDROXYUREA 500 MG CAP PO SCH (08:24)
[2017-06-25] MEDS: SODIUM CHLORIDE 0.9% FLUSH 10 ML FLUSH IV FLUSH SCH (08:24)
--- NOTE | 2017-06-25 09:17 | HHI.DS ---
cc: Lilo Shea MD Discharge Summary Admission Date Jun 23, 2017 at 17:32 Discharge Date: Jun 25, 2017 Admitting Diagnosis SCC with anemia (1) Systemic inflammatory response syndrome ICD Code: R65.10 - Systemic inflammatory response syndrome (SIRS) of non- infectious origin without acute organ dysfunction Diagnosis: Principal Status: Acute (2) Sickle cell anemia ICD Code: D57.1 - Sickle-cell disease without crisis Diagnosis: Principal (3) Generalized pain ICD Code: R52 - Pain, unspecified Diagnosis: Principal (4) Leukocytosis ICD Code: D72.829 - Leukocytosis Diagnosis: Principal Status: Acute (5) Hyperbilirubinemia ICD Code: E80.6 - Hyperbilirubinemia Diagnosis: Principal Status: Acute (6) Elevated LFTs ICD Code: R79.89 - Elevated LFTs Diagnosis: Principal Status: Acute Procedures None Brief History - From Admission 36 year-old female with known history of sickle cell anemia with multiple and recurrent admissions to the hospital for crisis, transfusions who presented to hospital for evaluation of generalized pain. Patient appears to have been done well and not have any admissions since February 2017. However, this is her fifth evaluation in emergency department. Patient states that she was in her normal state of health, she went to her ceramic tile mechanic appointment on Wednesday and was doing well. this morning she states that she started developing pain that was not controlled with her pain medication that it progressively got worse after she Took her pain medication. She did not contact her ceramic tile mechanic for recommendations. She had an episode of nausea and vomiting this morning. Because the pain progressively got worse she came to the hospital for evaluation. Patient was given IV fluids, Dilaudid emergency department. Laboratory studies were performed which did acute on chronic anemia, chronic liver enzyme/bilirubin elevation, leukocytosis. It was recommended by the ER physician that the patient be admitted for sickle cell crisis. Upon evaluating patient she was sitting up in the bed. No obvious signs of pain. Patient did indicate that she has the typical sickle cell pain with her extremities, abdomen she indicated that she had chest pain but not the cardiac chest pain, she only gets to sickle cell chest pain. She denied any shortness of breath, difficulty breathing, hematochezia, hematemesis, diarrhea, constipation. CBC/BMP: 06/24/17 0950 06/24/17 0950 Significant Findings Laboratory Tests Test 06/23/17 16:25 06/23/17 18:25 06/24/17 09:50 White Blood Count 17.7 TH/MM3 (4.0-11.0) 15.4 TH/MM3 (4.0-11.0) Red Blood Count 2.10 MIL/MM3 (4.00-5.30) 2.14 MIL/MM3 (4.00-5.30) Hemoglobin 7.0 GM/DL (11.6-15.3) 7.0 GM/DL (11.6-15.3) Hematocrit 19.6 % (35.0-46.0) 19.7 % (35.0-46.0) Red Cell Distribution Width 27.5 % (11.6-17.2) 27.9 % (11.6-17.2) Eosinophils % 5 % (0-4) 8 % (0-4) Neutrophils # (Manual) 10.4 TH/MM3 (1.8-7.7) 7.8 TH/MM3 (1.8-7.7) Nucleated Red Blood Cells 4 /100 WBC (0-0) 13 /100 WBC (0-0) Sickle Cells 3+ (NORMAL) 2+ (NORMAL) Target Cells 1+ (NORMAL) 2+ (NORMAL) Tear Drop Cells 1+ (NORMAL) Ovalocytes 2+ (NORMAL) 2+ (NORMAL) Stomatocytes 1+ (NORMAL) Keratocytes 1+ (NORMAL) 1+ (NORMAL) Reticulocyte Count 15.4 % (0.4-3.0) Absolute Reticulocyte Count 316.4 MIL/L (20.0-150.0) Albumin 3.2 GM/DL (3.4-5.0) 2.9 GM/DL (3.4-5.0) Calcium Level 7.9 MG/DL (8.5-10.1) 8.1 MG/DL (8.5-10.1) Alkaline Phosphatase 129 U/L (45-117) Aspartate Amino Transf (AST/SGOT) 66 U/L (15-37) 60 U/L (15-37) Total Bilirubin 2.5 MG/DL (0.2-1.0) 1.6 MG/DL (0.2-1.0) Chloride Level 110 MEQ/L (98-107) 110 MEQ/L (98-107) Estimat Glomerular Filtration Rate 77 ML/MIN (>89) 80 ML/MIN (>89) Urine Protein 30 mg/dL (NEG-TRACE) Urine Occult Blood MOD (NEG) Corrected White Blood Count 13.6 TH/MM3 (4.0-11.0) Monocytes (%) (Auto) 11.2 % (0.0-8.0) Eosinophils (%) (Auto) 7.7 % (0.0-4.0) Lymphocytes # (Auto) 5.3 TH/MM3 (1.0-4.8) Monocytes # (Auto) 1.7 TH/MM3 (0-0.9) Eosinophils # (Auto) 1.2 TH/MM3 (0-0.4) Polychromasia 3.6 % (0.0-1.9) Random Glucose 113 MG/DL (74-106) Imaging Last Impressions Chest X-Ray 06/23/17 0000 Signed Impressions: Service Date/Time: Friday, June 23, 2017 18:27 - CONCLUSION: Mild prominence of the interstitial markings throughout which may represent pulmonary venous hypertension or minimal edema. Dejon Meléndez MD PE at Discharge GENERAL: Well-developed, well-nourished, in no acute distress. alert and orientated HEENT: Head is normocephalic without any lesions or masses noted. Facial features are symmetric. Eyes: Extraocular muscles are intact. Conjunctivae were clear. NECK: Supple without any masses. Trachea midline no deviation. No JVD, CARDIAC: Regular rhythm, regular rate. S1/S2 are heard. No murmurs gallops or rubs. Mediport noted in right upper chest LUNGS: Clear to auscultation bilaterally. No wheeze, rhonchi or rales. No use of accessory muscles on inspiration or expiration. ABDOMEN: Soft, nontender. Nondistended. Bowel sounds heard in all 4 quadrants. No organomegaly or masses. Negative rebound, negative guarding EXTREMITIES: No edema, pulses are equal bilaterally. No cyanosis or clubbing NEUROLOGY: Mood and affect appear appropriate. Cranial nerves II through XII grossly intact. Moving all extremities, speech is clear Hospital Course 36-year-old female who is well-known to the hospital for sickle cell presented to the hospital with generalized pain, one episode of nausea and vomiting. She indicates that the pain was not controlled with her outpatient medication the pain was actually worse whenever the medication wore off. So she came to emergency department for evaluation. Patient had workup done which did not indicate any acute abnormality. Hemoglobin was 7.0 and liver enzymes appear to be stable from previous laboratory studies. Patient was admitted to the hospital for further management and evaluation. Patient was admitted with pain control, aggressive IV hydration. Follow-up laboratory studies were performed which did show s improvement of her liver enzymes. Her hemoglobin did not drop despite aggressive IV hydration. No obvious signs of hemolysis. Patient was continued on her home medication for pain control with Dilaudid IV for breakthrough. Upon seeing the patient this morning she states that she wants to go home. Patient remained clinically stable during her stay in the hospital. Recommend patient follow-up with her ceramic tile mechanic for further evaluation and management. We will plan discharge accordingly. Pt Condition on Discharge: Stable Discharge Disposition: Discharge Home Discharge Time: <= 30 minutes Discharge Instructions DIET: Follow Instructions for: As Tolerated, No Restrictions Activities you can perform: Regular-No Restrictions Follow up Referrals: Oncology/Hematology - 2 Weeks PCP Follow-up - 1 Week Continued Medications: Amlodipine (Amlodipine) 5 Mg Tab 5 MG PO DAILY for Blood Pressure Management, #30 TAB 0 Refills Aspirin (Aspirin) 81 Mg Chew 81 MG CHEW DAILY for Blood Clot Prevention, TAB 0 Refills Folic Acid (Folic Acid) 400 Mcg Tab 1 MG PO DAILY for Nutritional Supplement, TAB 0 Refills Hydromorphone (Dilaudid) 4 Mg Tab 4 MG PO Q6H PRN for Pain Management, TAB 0 Refills Hydroxyurea (Hydrea) 500 Mg Cap 500 MG PO TID for SICKLE CELL, CAP 0 Refills Sathya Conklin Jun 25, 2017 09:17
== END 2017-06-25 09:38 | disposition home or self-care (01) | DRG 812 ==
LOC: PHED 14:09 → PHEDA 17:32 → PH3B 21:10
PROVIDERS: ADMIT Hospitalist; ATTEND Hospitalist
DX: D57.00 Hb-SS disease with crisis, unspecified (principal); R65.10 Systemic inflammatory response syndrome (SIRS) of non-infectious origin without acute organ dysfunction; I12.9 Hypertensive chronic kidney disease with stage 1 through stage 4 chronic kidney disease, or unspecified chronic kidney disease; E80.6 Other disorders of bilirubin metabolism; R74.8 Abnormal levels of other serum enzymes; N18.2 Chronic kidney disease, stage 2 (mild); R52 Pain, unspecified; R00.0 Tachycardia, unspecified; D72.829 Elevated white blood cell count, unspecified; Z96.643 Presence of artificial hip joint, bilateral; R79.89 Other specified abnormal findings of blood chemistry; Z86.718 Personal history of other venous thrombosis and embolism; Z90.49 Acquired absence of other specified parts of digestive tract
CPT/HCPCS: 71046; 80053; 81001; 85007; 85027; 85044; 87040; 96361; 96365; 96374; 96375; 99214; G0463; J1170; J1200; J1642; J2405; J2550; J7030

== ENCOUNTER 2017-08-30 08:13 | Emergency (ER) | payer OTHER, MEDICAID ==
[~2017-08-30] VITALS: Ht 162.6 cm; Wt 66.0 kg
[~2017-08-30 08:13] MED LIST changes: -[UNRECOGNIZED DRUG - CODE]
[2017-08-30 08:17] VITALS: BP 122/80; PULSE 89; RESP 16; TEMP 98.5; O2SAT 96
[2017-08-30] MEDS ORDERED: SODIUM CHLOR 0.9% 1000 ML INJ 1,000 ML IV ONE (08:45)
[2017-08-30] MEDS ORDERED: ONDANSETRON ODT 4 MG TAB PO ONE (08:45)
[2017-08-30] MEDS ORDERED: HYDROmorphone HCL PF 2 MG/ML VIAL IVP ONE (08:45)
--- NOTE | 2017-08-30 08:52 | PD ---
HPI Chief Complaint: Sickle Cell Time Seen by Provider: 08:37 Travel History International Travel<30 days: No Contact w/Intl Traveler<30days: No Traveled to known affect area: No History of Present Illness HPI The patient was seen and examined in the presence of the nurse. She complains of diffuse sickle cell pain. Duration 2 days. Severity is moderate. No alleviating factors. No injury. No fever. No exacerbating factors. PFSH Past Medical History Hx Anticoagulant Therapy: Yes (BABY ASA DAILY) Anemia: Yes (SICKLE CELL) Arthritis: No Asthma: No Autoimmune Disease: No Blood Disorders: Yes (SICKLE CELL) Anxiety: No Depression: No Heart Rhythm Problems: No Cancer: No Cardiovascular Problems: Yes (htn on meds) High Cholesterol: No Chemotherapy: No Chest Pain: No Congestive Heart Failure: No COPD: No Cerebrovascular Accident: No Diabetes: No Diminished Hearing: No Deep Vein Thrombosis: Yes (HX LEFT ARM ) Endocrine: No Gastrointestinal Disorders: Yes GERD: No Glaucoma: No Genitourinary: Yes Headaches: Yes Hepatitis: No Hiatal Hernia: No Heparin Induced Thrombocytopen: No Hypertension: Yes Immune Disorder: Yes (SICKLE CELL) Implanted Vascular Access Dvce: Yes ( RIGHT POWER INFUSAPORT) Kidney Stones: No Medical other: Yes (AVASCULAR NECROSIS) Musculoskeletal: Yes (SCOLIOSIS) Neurologic: Yes Psychiatric: No Reproductive: No Respiratory: No Immunizations Current: Yes Migraines: Yes Myocardial Infarction: No Pneumonia: Yes Radiation Therapy: No Renal Failure: No Seizures: No Sickle Cell Disease: Yes Sleep Apnea: No Thyroid Disease: No Ulcer: No Tetanus Vaccination: < 5 Years Influenza Vaccination: Yes PNEUMOCCOCAL Vaccine (Year): 2008 ?: Not LMP: "Couple months ago" Menopausal: No : 5 Para: 2 Miscarriage: 3 : 0 Ovarian Cysts: Yes Past Surgical History Abdominal Surgery: Yes (cholecystectomy) AICD: No Appendectomy: Yes Arteriovenous Shunt: No Body Medical Devices: CATIA IN UPPER BACK Cardiac Surgery: No Cholecystectomy: Yes Ear Surgery: No Endocrine Surgery: No Eye Surgery: No Genitourinary Surgery: No Gynecologic Surgery: No Hysterectomy: No Insulin Pump: No Joint Replacement: Yes (R HIP REPLACEMENT 2011, L HIP 2014) Neurologic Surgery: No Oral Surgery: No Pacemaker: No Thoracic Surgery: No Other Surgery: Yes (INSERTION OF INFUSA PORTX 3) Social History Alcohol Use: Yes (OCCASIONAL WINE) Tobacco Use: No Substance Use: No Allergies-Medications (Allergen,Severity, Reaction): Coded Allergies: ketorolac (Verified Allergy, Severe, Itching, 08/30/17) morphine (Verified Allergy, Mild, Swelling, 08/30/17) ibuprofen (Verified Adverse Reaction, Severe, Urinary Freq (Inc/Dec), ) RENAL FAILURE methadone (Verified Adverse Reaction, Severe, DEPRESSION, 08/30/17) Reported Meds & Prescriptions Reported Meds & Active Scripts Active Reported Dilaudid (Hydromorphone HCl) 4 Mg Tab 4 Mg PO Q6H PRN Hydrea (Hydroxyurea) 500 Mg Cap 500 Mg PO TID Folic Acid 400 Mcg Tab 1 Mg PO DAILY Aspirin 81 Mg Chew 81 Mg CHEW DAILY Amlodipine (Amlodipine Besylate) 5 Mg Tab 5 Mg PO DAILY Review of Systems General / Constitutional: No: Fever Eyes: No: Visual changes HENT: No: Headaches Cardiovascular: No: Chest Pain or Discomfort Respiratory: No: Shortness of Breath Gastrointestinal: No: Abdominal Pain Genitourinary: No: Dysuria Musculoskeletal: Positive: Pain Skin: No Rash Neurologic: No: Weakness Psychiatric: No: Depression Endocrine: No: Polydipsia Hematologic/Lymphatic: No: Easy Bruising Physical Exam Narrative GENERAL: Well-nourished, well-developed patient in no apparent distress. SKIN: Focused skin assessment reveals no rash and nodules. Skin is Warm and dry. HEAD: Atraumatic. Normocephalic. EYES: Pupils equal and round. No scleral icterus. No injection or drainage. ENT: No nasal bleeding or discharge. Mucous membranes pink and moist. NECK: Trachea midline. No JVD. CARDIOVASCULAR: Regular rate and rhythm. No murmur appreciated. RESPIRATORY: No accessory muscle use. Clear to auscultation. Breath sounds equal bilaterally. GASTROINTESTINAL: Abdomen soft, non-tender, nondistended. Hepatic and splenic margins not palpable. MUSCULOSKELETAL: No obvious deformities. No clubbing. No cyanosis. No edema. NEUROLOGICAL: Awake and alert. No obvious cranial nerve deficits. Motor grossly within normal limits. Normal speech. PSYCHIATRIC: Appropriate mood and affect; insight and judgment normal. Data Data Last Documented VS Vital Signs Date Time Temp Pulse Resp B/P (MAP) Pulse Ox O2 Delivery O2 Flow Rate FiO2 08/30/17 09:10 94 Nasal Cannula 2.00 08/30/17 08:17 98.5 89 16 122/80 (94) Orders Orders Complete Blood Count With Diff (08/30/17 08:44) Heparin Central Flush (Heparin Central F (08/30/17 08:45) Sodium Chlor 0.9% 1000 Ml Inj (Ns 1000 M (08/30/17 08:45) Hydromorphone Pf Inj (Dilaudid Pf Inj) (08/30/17 08:45) Ondansetron Odt (Zofran Odt) (08/30/17 08:45) Labs Laboratory Tests Test 08/30/17 09:00 White Blood Count 15.1 TH/MM3 Red Blood Count 2.33 MIL/MM3 Hemoglobin 7.9 GM/DL Hematocrit 22.2 % Mean Corpuscular Volume 95.3 FL Mean Corpuscular Hemoglobin 34.0 PG Mean Corpuscular Hemoglobin Concent 35.6 % Red Cell Distribution Width 27.7 % Platelet Count 301 TH/MM3 Mean Platelet Volume 8.8 FL CBC Comment AUTO DIFF MDM Medical Decision Making Medical Screen Exam Complete: Yes Emergency Medical Condition: Yes Medical Record Reviewed: Yes Differential Diagnosis Sickle cell pain, narcotic seeking behavior, narcotic withdrawal Narrative Course I have reviewed the patient's electronic medical record. Frequent visitor to the ER for sickle cell pain Her port is accessed and labs sent Gave her a liter of normal saline IV and oral for symptom relief She looks clinically well with normal vitals and does not appear to be any distress or pain. CBC reveals hemoglobin of 7.9 which is same as it was last check She looks clinically well Follow-up with her software quality assurance engineer as outpatient Diagnosis Primary Impression: Sickle cell anemia with pain Additional Instructions: Follow-up with your software quality assurance engineer Med/Other Pt SpecificInfo: Other Disposition: 01 DISCHARGE HOME Condition: Stable Sathya Pena MD Aug 30, 2017 08:52
[2017-08-30 09:35] LABS: HEMATOCRIT 22.2 % (35.0-46.0); HEMOGLOBIN 7.9 GM/DL (11.6-15.3); MEAN CELL VOLUME 95.3 FL (80.0-100.0); MEAN CORPUSCULAR HGB CONC 35.6 % (32.0-36.0); MEAN PLATELET VOLUME 8.8 FL (7.0-11.0); PLATELET COUNT 301 TH/MM3 (150-450); RED BLOOD COUNT 2.33 MIL/MM3 (4.00-5.30); RED CELL DISTRIBUTION WIDTH 27.7 % (11.6-17.2); WHITE BLOOD COUNT 15.1 TH/MM3 (4.0-11.0)
[2017-08-30 09:56] LABS: BANDS 1 % (0-6); CORRECTED NUCLEATED RBC 18 /100 WBC (0-0); CORRECTED WBC 12.8 TH/MM3 (4.0-11.0); LYMPHOCYTES 25 % (9-44); MONOCYTES 7 % (0-8); MYELOCYTES 2 % (0-0); NEUTROPHIL # MANUAL DIFF 8.3 TH/MM3 (1.8-7.7); NUCLEATED RED BLOOD CELL 18 (0-0); POLYS (SEG NEUTROPHILS) 62 % (16-70)
[2017-08-30 09:57] LABS: SICKLE CELLS 2+ (NORMAL); SPHEROCYTES 1+ (NORMAL); TARGET CELLS 1+ (NORMAL)
[2017-08-30 10:05] VITALS: BP 119/76; PULSE 80; RESP 14; O2SAT 92
== END 2017-08-30 10:25 | disposition home or self-care (01) ==
LOC: PHED 08:13
DX: D57.00 Hb-SS disease with crisis, unspecified (principal); I10 Essential (primary) hypertension; M41.9 Scoliosis, unspecified
CPT/HCPCS: 85007; 85027; 96361; 96374; 99284; J1170; J1642; J7030

== ENCOUNTER 2017-09-09 08:43 | Emergency (ER) | payer OTHER, MEDICAID ==
[~2017-09-09] VITALS: Ht 162.6 cm; Wt 67.8 kg
[2017-09-09 08:48] VITALS: BP 126/79; PULSE 108; RESP 16; TEMP 98.5; O2SAT 90
[2017-09-09] MEDS ORDERED: DEFE1TAB2 PO (09:25)
[2017-09-09] MEDS ORDERED: diphenhydrAMINE HCL 50 MG/ML VIAL IV PUSH ONE ×2 (09:30→11:15)
[2017-09-09] MEDS ORDERED: SODIUM CHLORIDE 0.9% FLUSH 10 ML FLUSH IVF PRN (09:30)
[2017-09-09] MEDS ORDERED: SODIUM CHLOR 0.9% 1000 ML INJ 1,000 ML IV ONE (09:30)
[2017-09-09] MEDS ORDERED: ONDANSETRON HCL 4 MG/2 ML VIAL IVP ONE (09:30)
[2017-09-09] MEDS ORDERED: HYDROmorphone HCL PF 2 MG/ML VIAL IVS ONE (09:30)
--- NOTE | 2017-09-09 09:33 | PD ---
HPI Chief Complaint: Sickle Cell Time Seen by Provider: 09:21 Travel History International Travel<30 days: No Contact w/Intl Traveler<30days: No Traveled to known affect area: No History of Present Illness HPI This 36-year-old female is complaining of pain all over. She has a history of sickle cell anemia and says this is typical of her painful crisis. She has not had fever or chills. She believes this crisis has been triggered by her menstrual period which has triggered crises in the past. She says the pain is constant and severe. She rates it as a 9. It has been going on since yesterday. PFSH Past Medical History Hx Anticoagulant Therapy: Yes (BABY ASA DAILY) Anemia: Yes (SICKLE CELL) Arthritis: No Asthma: No Autoimmune Disease: No Blood Disorders: Yes (SICKLE CELL) Anxiety: No Depression: No Heart Rhythm Problems: No Cancer: No Cardiovascular Problems: Yes (HTN) High Cholesterol: No Chemotherapy: No Chest Pain: No Congestive Heart Failure: No COPD: No Cerebrovascular Accident: No Diabetes: No Diminished Hearing: No Deep Vein Thrombosis: Yes (HX LEFT ARM ) Endocrine: No Gastrointestinal Disorders: Yes GERD: No Glaucoma: No Genitourinary: Yes Headaches: Yes Hepatitis: No Hiatal Hernia: No Heparin Induced Thrombocytopen: No Hypertension: Yes Immune Disorder: Yes (SICKLE CELL) Implanted Vascular Access Dvce: Yes ( RIGHT POWER INFUSAPORT) Kidney Stones: No Musculoskeletal: Yes (SCOLIOSIS) Neurologic: Yes Psychiatric: No Reproductive: No Respiratory: No Immunizations Current: Yes Migraines: Yes Myocardial Infarction: No Pneumonia: Yes Radiation Therapy: No Renal Failure: No Seizures: No Sickle Cell Disease: Yes Sleep Apnea: No Thyroid Disease: No Ulcer: No Tetanus Vaccination: < 5 Years PNEUMOCCOCAL Vaccine (Year): 2008 ?: Not Menopausal: No : 5 Para: 2 Miscarriage: 3 : 0 Ovarian Cysts: Yes Past Surgical History Abdominal Surgery: Yes (cholecystectomy) AICD: No Appendectomy: Yes Arteriovenous Shunt: No Body Medical Devices: CATIA IN UPPER BACK Cardiac Surgery: No Cholecystectomy: Yes Ear Surgery: No Endocrine Surgery: No Eye Surgery: No Genitourinary Surgery: No Gynecologic Surgery: No Hysterectomy: No Insulin Pump: No Joint Replacement: Yes (R HIP REPLACEMENT 2011, L HIP 2014) Neurologic Surgery: No Oral Surgery: No Pacemaker: No Thoracic Surgery: No Other Surgery: Yes (INSERTION OF INFUSA PORTX 3) Social History Alcohol Use: Yes (OCCASIONAL WINE) Tobacco Use: No Substance Use: No Allergies-Medications (Allergen,Severity, Reaction): Coded Allergies: ketorolac (Verified Allergy, Severe, Itching, 09/09/17) morphine (Verified Allergy, Mild, Swelling, 09/09/17) ibuprofen (Verified Adverse Reaction, Severe, Urinary Freq (Inc/Dec), 09/09) RENAL FAILURE methadone (Verified Adverse Reaction, Severe, DEPRESSION, 09/09/17) Reported Meds & Prescriptions Reported Meds & Active Scripts Active Reported Jadenu (Deferasirox) 180 Mg Tab 180 Mg PO Dilaudid (Hydromorphone HCl) 4 Mg Tab 4 Mg PO Q6H PRN Hydrea (Hydroxyurea) 500 Mg Cap 500 Mg PO TID Folic Acid 400 Mcg Tab 1 Mg PO DAILY Aspirin 81 Mg Chew 81 Mg CHEW DAILY Amlodipine (Amlodipine Besylate) 5 Mg Tab 5 Mg PO DAILY Review of Systems Except as stated in HPI: all other systems reviewed are Neg General / Constitutional: No: Fever, Chills Eyes: No: Diploplia, Blurred Vision HENT: No: Headaches Musculoskeletal: Positive: Myalgias, Pain Skin: No Rash Neurologic: No: Weakness Hematologic/Lymphatic: No: Easy Bruising Physical Exam Narrative GENERAL: Well-developed female SKIN: Focused skin assessment warm/dry. HEAD: Atraumatic. Normocephalic. EYES: Pupils equal and round. No scleral icterus. No injection or drainage. ENT: No nasal bleeding or discharge. Mucous membranes pink and moist. NECK: Trachea midline. No JVD. CARDIOVASCULAR: Regular rate and rhythm. No murmur appreciated. RESPIRATORY: No accessory muscle use. Clear to auscultation. Breath sounds equal bilaterally. GASTROINTESTINAL: Abdomen soft, non-tender, nondistended. Hepatic and splenic margins not palpable. MUSCULOSKELETAL: No obvious deformities. No clubbing. No cyanosis. No edema. NEUROLOGICAL: Awake and alert. No obvious cranial nerve deficits. Motor grossly within normal limits. Normal speech. PSYCHIATRIC: Appropriate mood and affect; insight and judgment normal. Data Data Last Documented VS Vital Signs Date Time Temp Pulse Resp B/P (MAP) Pulse Ox O2 Delivery O2 Flow Rate FiO2 09/09/17 11:00 90 14 113/67 (82) 95 Nasal Cannula 2.00 6/14/18 08:48 98.5 Orders Orders Complete Blood Count With Diff (09/09/17 09:26) Comprehensive Metabolic Panel (09/09/17 09:26) Urinalysis - C+S If Indicated (09/09/17 09:26) Ecg Monitoring (09/09/17 09:26) Iv Access Insert/Monitor (09/09/17:26) Oximetry (09/09/17 09:26) Hydromorphone Pf Inj (Dilaudid Pf Inj) (09/09/17 09:30) Ondansetron Inj (Zofran Inj) (09/09/17 09:30) Sodium Chloride 0.9% Flush (Ns Flush) (09/09/17 09:30) Diphenhydramine Inj (Benadryl Inj) (09/09/17 09:30) Sodium Chlor 0.9% 1000 Ml Inj (Ns 1000 M (09/09/17 09:30) Hydromorphone Pf Inj (Dilaudid Pf Inj) (09/09/17 11:15) Diphenhydramine Inj (Benadryl Inj) (09/09/17 11:15) Labs Laboratory Tests Test 09/09/17 10:10 White Blood Count 15.7 TH/MM3 Corrected White Blood Count 14.0 TH/MM3 Red Blood Count 2.25 MIL/MM3 Hemoglobin 7.6 GM/DL Hematocrit 21.2 % Mean Corpuscular Volume 91.4 FL Mean Corpuscular Hemoglobin 33.6 PG Mean Corpuscular Hemoglobin Concent 36.7 % Red Cell Distribution Width 26.3 % Platelet Count 359 TH/MM3 Mean Platelet Volume 8.9 FL CBC Comment AUTO DIFF Differential Total Cells Counted 100 Neutrophils % (Manual) 42 % Band Neutrophils % 1 % Lymphocytes % 31 % Monocytes % 3 % Eosinophils % 20 % Basophils % 1 % Neutrophils # (Manual) 6.3 TH/MM3 Metamyelocytes 2 % Nucleated Red Blood Cells 12 /100 WBC Differential Comment FINAL DIFF MANUAL Platelet Estimate NORMAL Platelet Morphology Comment NORMAL Sickle Cells 3+ Target Cells 2+ Ovalocytes 2+ Acanthocytes 1+ Keratocytes 1+ Blood Urea Nitrogen 10 MG/DL Creatinine 1.00 MG/DL Random Glucose 95 MG/DL Total Protein 8.0 GM/DL Albumin 3.7 GM/DL Calcium Level 8.8 MG/DL Alkaline Phosphatase 116 U/L Aspartate Amino Transf (AST/SGOT) 62 U/L Alanine Aminotransferase (ALT/SGPT) 27 U/L Total Bilirubin 3.1 MG/DL Sodium Level 142 MEQ/L Potassium Level 4.2 MEQ/L Chloride Level 109 MEQ/L Carbon Dioxide Level 24.8 MEQ/L Anion Gap 8 MEQ/L Estimat Glomerular Filtration Rate 77 ML/MIN MDM Medical Decision Making Medical Screen Exam Complete: Yes Emergency Medical Condition: Yes Medical Record Reviewed: Yes Differential Diagnosis Differential includes sickle cell crisis, anemia Narrative Course She has been given IV fluids Zofran and Dilaudid. Her hemoglobin is 7.6. After the first dose of Dilaudid she reports her pain is a level of 5. A repeat dose has been given. Diagnosis Primary Impression: Sickle cell anemia with crisis Disposition: 01 DISCHARGE HOME Condition: Stable Jacob Mauro MD Sep 09, 2017 09:33
[2017-09-09 10:20] LABS: HEMOGLOBIN 7.6 GM/DL (11.6-15.3); MEAN CELL VOLUME 91.4 FL (80.0-100.0); MEAN CORPUSCULAR HEMOGLOBIN 33.6 PG (27.0-34.0); MEAN PLATELET VOLUME 8.9 FL (7.0-11.0); PLATELET COUNT 359 TH/MM3 (150-450); RED BLOOD COUNT 2.25 MIL/MM3 (4.00-5.30); RED CELL DISTRIBUTION WIDTH 26.3 % (11.6-17.2); WHITE BLOOD COUNT 15.7 TH/MM3 (4.0-11.0)
[2017-09-09 10:25] LABS: HEMATOCRIT 21.2 % (35.0-46.0); MEAN CORPUSCULAR HGB CONC 36.7 % (32.0-36.0)
[2017-09-09 10:31] LABS: CHLORIDE 109 MEQ/L (98-107); SODIUM (NA) 142 MEQ/L (136-145)
[2017-09-09 10:34] LABS: CALCIUM 8.8 MG/DL (8.5-10.1)
[2017-09-09 10:35] LABS: ALBUMIN 3.7 GM/DL (3.4-5.0); BICARBONATE 24.8 MEQ/L (21.0-32.0); BLOOD UREA NITROGEN 10 MG/DL (7-18); GLUCOSE,RANDOM 95 MG/DL (74-106)
[2017-09-09 10:38] LABS: ALT (GPT) 27 U/L (10-53); AST (GOT) 62 U/L (15-37); GLOMERULAR FILTRATION RATE 77 ML/MIN (>89)
[2017-09-09 10:40] LABS: TOTAL BILIRUBIN ADULT 3.1 MG/DL (0.2-1.0)
[2017-09-09 10:41] LABS: ALKALINE PHOSPHATASE 116 U/L (45-117)
[2017-09-09 10:47] VITALS: O2SAT 96
[2017-09-09 11:00] VITALS: BP 113/67; PULSE 90; RESP 14; O2SAT 95
[2017-09-09] MEDS ORDERED: HYDROmorphone HCL PF 2 MG/ML VIAL IV PUSH ONE (11:15)
[2017-09-09 11:29] LABS: ACANTHOCYTES 1+ (NORMAL); BANDS 1 % (0-6); BASOPHILS 1 % (0-2); CORRECTED NUCLEATED RBC 12 /100 WBC (0-0); KERATOCYTES 1+ (NORMAL); LYMPHOCYTES 31 % (9-44); METAMYELOCYTES 2 % (0-1); MONOCYTES 3 % (0-8); NEUTROPHIL # MANUAL DIFF 6.3 TH/MM3 (1.8-7.7); NUCLEATED RED BLOOD CELL 12 (0-0); OVALOCYTES 2+ (NORMAL); POLYS (SEG NEUTROPHILS) 42 % (16-70); SICKLE CELLS 3+ (NORMAL); TARGET CELLS 2+ (NORMAL)
[2017-09-09 12:09] VITALS: RESP 3
== END 2017-09-09 12:26 | disposition home or self-care (01) ==
LOC: PHED 08:43
DX: D57.00 Hb-SS disease with crisis, unspecified (principal); I10 Essential (primary) hypertension; M41.9 Scoliosis, unspecified; Z79.82 Long term (current) use of aspirin; Z86.718 Personal history of other venous thrombosis and embolism
CPT/HCPCS: 80053; 85007; 85027; 96361; 96374; 96375; 96376; 99284; J1170; J1200; J2405; J7030

== ENCOUNTER 2017-09-10 10:52 | Emergency (ER) | payer OTHER, MEDICAID ==
[~2017-09-10 10:52] MED LIST changes: +DEFE1TAB2 PO
[2017-09-10 10:55] VITALS: BP 147/103; PULSE 114; RESP 20; TEMP 98.1; O2SAT 94
[2017-09-10] MEDS ORDERED: SODIUM CHLORIDE 0.9% FLUSH 10 ML FLUSH IVF PRN (11:15)
[2017-09-10] MEDS ORDERED: HYDROmorphone HCL PF 2 MG/ML VIAL IV PUSH ONE (11:15)
[2017-09-10] MEDS ORDERED: diphenhydrAMINE HCL 50 MG/ML VIAL IV PUSH ONE (11:15)
[2017-09-10] MEDS ORDERED: SODIUM CHLOR 0.9% 1000 ML INJ 1,000 ML IV ONE (11:15)
--- NOTE | 2017-09-10 11:22 | PD ---
HPI Chief Complaint: Sickle Cell Time Seen by Provider: 11:00 Travel History International Travel<30 days: No Contact w/Intl Traveler<30days: No Traveled to known affect area: No History of Present Illness HPI 36-year-old female complains of body pain. 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 Patient was seen in emergency room yesterday and given IV fluids, pain medication and discharge. Patient states that she had persistent pain since yesterday. Patient denies any fever chills. Patient denies any coughing congestion. Patient denies any nausea vomiting diarrhea. On a scale of 1-10 the pain is a 10. Patient is taking Dilaudid p.o. at home without much relief of the pain. PFSH Past Medical History Hx Anticoagulant Therapy: Yes (BABY ASA DAILY) Anemia: Yes (SICKLE CELL) Arthritis: No Asthma: No Autoimmune Disease: No Blood Disorders: Yes (SICKLE CELL) Anxiety: No Depression: No Heart Rhythm Problems: No Cancer: No Cardiovascular Problems: Yes (HTN) High Cholesterol: No Chemotherapy: No Chest Pain: No Congestive Heart Failure: No COPD: No Cerebrovascular Accident: No Diabetes: No Diminished Hearing: No Deep Vein Thrombosis: Yes (HX LEFT ARM ) Endocrine: No Gastrointestinal Disorders: Yes GERD: No Glaucoma: No Genitourinary: Yes Headaches: Yes Hepatitis: No Hiatal Hernia: No Heparin Induced Thrombocytopen: No Hypertension: Yes Immune Disorder: Yes (SICKLE CELL) Implanted Vascular Access Dvce: Yes ( RIGHT POWER INFUSAPORT) Kidney Stones: No Musculoskeletal: Yes (SCOLIOSIS) Neurologic: Yes Psychiatric: No Reproductive: No Respiratory: No Immunizations Current: Yes Migraines: Yes Myocardial Infarction: No Pneumonia: Yes Radiation Therapy: No Renal Failure: No Seizures: No Sickle Cell Disease: Yes Sleep Apnea: No Thyroid Disease: No Ulcer: No PNEUMOCCOCAL Vaccine (Year): 2008 ?: Not Menopausal: No : 5 Para: 2 Miscarriage: 3 : 0 Ovarian Cysts: Yes Past Surgical History Abdominal Surgery: Yes (cholecystectomy) AICD: No Appendectomy: Yes Arteriovenous Shunt: No Body Medical Devices: CATIA IN UPPER BACK Cardiac Surgery: No Cholecystectomy: Yes Ear Surgery: No Endocrine Surgery: No Eye Surgery: No Genitourinary Surgery: No Gynecologic Surgery: No Hysterectomy: No Insulin Pump: No Joint Replacement: Yes (R HIP REPLACEMENT 2011, L HIP 2014) Neurologic Surgery: No Oral Surgery: No Pacemaker: No Thoracic Surgery: No Other Surgery: Yes (INSERTION OF INFUSA PORTX 3) Social History Alcohol Use: Yes (OCCASIONAL WINE) Tobacco Use: No Substance Use: No Allergies-Medications (Allergen,Severity, Reaction): Coded Allergies: ketorolac (Verified Allergy, Severe, Itching, 09/10/17) morphine (Verified Allergy, Mild, Swelling, 09/10/17) ibuprofen (Verified Adverse Reaction, Severe, Urinary Freq (Inc/Dec), 09/10) RENAL FAILURE methadone (Verified Adverse Reaction, Severe, DEPRESSION, 09/10/17) Reported Meds & Prescriptions Reported Meds & Active Scripts Active Reported Jadenu (Deferasirox) 180 Mg Tab 180 Mg PO Dilaudid (Hydromorphone HCl) 4 Mg Tab 4 Mg PO Q6H PRN Hydrea (Hydroxyurea) 500 Mg Cap 500 Mg PO TID Folic Acid 400 Mcg Tab 1 Mg PO DAILY Aspirin 81 Mg Chew 81 Mg CHEW DAILY Amlodipine (Amlodipine Besylate) 5 Mg Tab 5 Mg PO DAILY Review of Systems General / Constitutional: No: Fever Eyes: No: Visual changes HENT: No: Headaches Cardiovascular: No: Chest Pain or Discomfort Respiratory: No: Shortness of Breath Gastrointestinal: No: Abdominal Pain Genitourinary: No: Dysuria Musculoskeletal: No: Pain Skin: No Rash Neurologic: No: Weakness Psychiatric: No: Depression Endocrine: No: Polydipsia Hematologic/Lymphatic: No: Easy Bruising Physical Exam Narrative GENERAL: Well-nourished, well-developed patient. SKIN: Focused skin assessment warm/dry. HEAD: Normocephalic. EYES: No scleral icterus. No injection or drainage. NECK: Supple, trachea midline. No JVD or lymphadenopathy. CARDIOVASCULAR: Regular rate and rhythm without murmurs, gallops, or rubs. RESPIRATORY: Breath sounds equal bilaterally. No accessory muscle use. GASTROINTESTINAL: Abdomen soft, non-tender, nondistended. MUSCULOSKELETAL: No cyanosis, or edema. BACK: Nontender without obvious deformity. No CVA tenderness. Neurologic exam normal. Data Data Last Documented VS Vital Signs Date Time Temp Pulse Resp B/P (MAP) Pulse Ox O2 Delivery O2 Flow Rate FiO2 09/10/17 10:55 98.1 114 20 147/103 (118) 94 Orders Orders Basic Metabolic Panel (Bmp) (09/10/17 11:15) Complete Blood Count With Diff (09/10/17 11:15) Retic Count (09/10/17 11:15) Ecg Monitoring (09/10/17 11:15) Iv Access Insert/Monitor (09/10/17 11:15) Oximetry (09/10/17 11:15) Sodium Chloride 0.9% Flush (Ns Flush) (09/10/17 11:15) Sodium Chlor 0.9% 1000 Ml Inj (Ns 1000 M (09/10/17 11:15) Diphenhydramine Inj (Benadryl Inj) (09/10/17 11:15) Heparin Central Flush (Heparin Central F (09/10/17 11:15) Hydromorphone Pf Inj (Dilaudid Pf Inj) (09/10/17 11:15) MDM Medical Decision Making Medical Screen Exam Complete: Yes Emergency Medical Condition: Yes Differential Diagnosis Differential diagnosis including sickle cell pain crisis, anemia. Narrative Course 36-year-old female with body pain. History of sickle cell disease with frequent sickle cell pain crisis. Normal saline solution 1 L IV bolus. Dilaudid 2 mg IV. Benadryl 25 mg IV. Brayan Morton MD Sep 10, 2017 11:22
[2017-09-10 11:33] VITALS: O2SAT 94
[2017-09-10 11:34] LABS: HEMOGLOBIN 7.5 GM/DL (11.6-15.3); MEAN CELL VOLUME 90.8 FL (80.0-100.0); MEAN CORPUSCULAR HEMOGLOBIN 33.9 PG (27.0-34.0); MEAN PLATELET VOLUME 8.4 FL (7.0-11.0); PLATELET COUNT 359 TH/MM3 (150-450); RED CELL DISTRIBUTION WIDTH 27.4 % (11.6-17.2); WHITE BLOOD COUNT 16.2 TH/MM3 (4.0-11.0)
[2017-09-10 11:36] LABS: MEAN CORPUSCULAR HGB CONC 37.4 % (32.0-36.0)
[2017-09-10 11:38] VITALS: PULSE 103; RESP 20; O2SAT 95
[2017-09-10 11:44] LABS: BICARBONATE 23.2 MEQ/L (21.0-32.0); CALCIUM 9.1 MG/DL (8.5-10.1)
[2017-09-10 12:01] LABS: ACANTHOCYTES 1+ (NORMAL); BANDS 1 % (0-6); CORRECTED NUCLEATED RBC 15 /100 WBC (0-0); CORRECTED WBC 14.1 TH/MM3 (4.0-11.0); KERATOCYTES 1+ (NORMAL); LYMPHOCYTES 41 % (9-44); MONOCYTES 9 % (0-8); NEUTROPHIL # MANUAL DIFF 6.2 TH/MM3 (1.8-7.7); NUCLEATED RED BLOOD CELL 15 (0-0); OVALOCYTES 1+ (NORMAL); POLYS (SEG NEUTROPHILS) 43 % (16-70); SICKLE CELLS 2+ (NORMAL); TARGET CELLS 2+ (NORMAL); TEARDROP RBCS 1+ (NORMAL)
[2017-09-10 13:06] VITALS: BP 141/92; PULSE 99; RESP 20; O2SAT 99
[2017-09-10 13:59] LABS: RETIC # 363.7 MIL/L (20.0-150.0); RETIC % 16.5 % (0.4-3.0)
== END 2017-09-10 13:19 | disposition home or self-care (01) ==
LOC: PHED 10:52
DX: D57.00 Hb-SS disease with crisis, unspecified (principal); I10 Essential (primary) hypertension; M41.9 Scoliosis, unspecified; Z79.82 Long term (current) use of aspirin
CPT/HCPCS: 80048; 85007; 85027; 85044; 96361; 96374; 96375; 99284; J1170; J1200; J1642; J7030

== ENCOUNTER 2018-01-09 13:00 | Inpatient (IN) ==
[2018-01-09] MEDS ORDERED: Naloxone Inj 0.4 MG/ML Vial IV.PUSH PRN (13:31)
[2018-01-09] MEDS ORDERED: HYDROmorphone PF Inj 1 MG/ML Ampul IV.PUSH PRN (13:31)
[2018-01-09] MEDS ORDERED: Bisacodyl 10 MG Supp RECTAL PRN (13:32)
[2018-01-09] MEDS ORDERED: Acetaminophen 325 MG Tablet PO PRN (13:32)
--- NOTE | 2018-01-09 13:42 | P.HP ---
History of Present Illness Primary Care Physician: UNKNOWN Chief Complaint: Chest, legs and arms pain associated with nausea and vomiting History of Present Illness: 37-year-old -[place] female for past medical history of sickle cell disease and anemia presented to the ED for evaluation of chest, legs and arms pain times 7 days duration rated over 8 in intensity. She also over the past 2 days has had nausea and vomiting and one episode of diarrhea, however denies any sick contact. Patient reports sickle cell crisis worse than usual leading to generalized fatigue. She denies any shortness of breath, GI bleed. She denies any febrile episode. Patient was seen by her pantograph transferrer last week and no change was made in her medications. - Diagnosis (1) Acute sickle cell crisis Inpatient Certification: I certify that the inpatient services were ordered in accordance with Medicare regulations governing the order. This includes certification that hospital inpatient services are reasonable and necessary and in the case of services not specified as inpatient-only under 42 CFR 419.22(n), that they are appropriately provided as inpatient services in accordance to with the 2-midnight benchmark under 43 CFR 412.3(e) Estimated Total Length of Stay (Days): 2 Plans for Post Hospital Care: Not yet determined Review of Systems All other systems reviewed negative except as stated in HPI PMFSH - History History Provided By: Patient - Medical History Medical History: Medical History (Last Reviewed 01/09/18 @ 09:44 by Junior Becerra MD) H/O sickle cell anemia (Acute) Avascular necrosis CKD (chronic kidney disease) DVT (deep venous thrombosis) Sepsis Thrombocytopenia - Surgical History Surgical History: Surgical History (Last Reviewed 01/09/18 @ 09:44 by Junior Becerra MD) History of cholecystectomy (Acute) History of hip replacement (Acute) Previous back surgery (Acute) History of appendectomy - Family History Family History: Family History (Last Updated 01/09/18 @ 13:39 by Gen Mckeon MD) Other Hypertension - Tobacco History Second Hand Smoke Exposure: No Smoking Status: Never smoker - Alcohol History How Often Do You Have a Drink Containing Alcohol: Never - Substance Use History Substance History: No History of Abuse Medications and Allergies Active Medications: Active Medications Acetaminophen (Tylenol) 650 mg PO Q4H PRN PRN Reason: Temp > 100.4 Al Hydroxide/Mg Hydroxide (Milk Of Magnesia Liq) 30 ml PO Q12H PRN PRN Reason: Mild Constipation Bisacodyl (Dulcolax Supp) 10 mg RECTAL DAILY PRN PRN Reason: SEVERE CONSITIPATION Enoxaparin Sodium (Lovenox Inj) 30 mg SQ Q24H [facility]ON Hydromorphone HCl (Dilaudid Pf Inj) 0.5 mg IV.PUSH Q3H PRN PRN Reason: PAIN 3-5; IF UABLE TO TAKE PO Hydromorphone HCl (Dilaudid Pf Inj) 2 mg IV.PUSH Q3H PRN PRN Reason: PAIN 6-10;IF UNABLE TO TAKE PO Sodium Chloride (Ns Inj) 1,000 mls @ 70 mls/hr IV.CONT .[id number] MARLON Lactulose (Lactulose Liq) 30 ml PO DAILY PRN PRN Reason: SEVERE CONSITIPATION Naloxone HCl (Narcan Inj) 0.4 mg IV.PUSH UNSCH PRN PRN Reason: SEE LABEL COMMENTS Ondansetron HCl (Zofran Inj) 4 mg IV.PUSH Q6H PRN PRN Reason: NAUSEA OR VOMITING Senna/Docusate Sodium (Rhianna-Colace) 1 tab PO BID MAR[facility]ON Sennosides (Senokot) 17.2 mg PO Q12H PRN PRN Reason: Moderate Constipation Allergies Allergy/AdvReac Type Severity Reaction Status Date / Time ketorolac Allergy Severe Itching Verified 01/09/18 09:31 morphine Allergy Mild Swelling Verified 01/09/18 09:31 ibuprofen AdvReac Severe Urinary Verified 01/09/18 09:31 Freq (Inc/Dec) methadone AdvReac Severe DEPRESSION Verified 01/09/18 09:31 Home Medications Medication Instructions Recorded Confirmed Type deferasirox [Jadenu] 180 mg PO DAILY 10/17/17 01/09/18 History folic acid 1 mg PO DAILY 10/17/17 01/09/18 History hydromorphone [Dilaudid] 1 mg PO Q4-6H PRN 10/17/17 01/09/18 History hydroxyurea 500 mg PO TID 10/17/17 01/09/18 History amlodipine 5 mg PO DAILY 01/09/18 01/09/18 History Exam Narrative: GENERAL: NAD SKIN: Warm and dry. HEAD: Atraumatic. Normocephalic. EYES: Pupils equal and round. No scleral icterus. No injection or drainage. ENT: No nasal bleeding or discharge. Mucous membranes pink and moist. NECK: Trachea midline. No JVD. CARDIOVASCULAR: Regular rate and rhythm. RESPIRATORY: No accessory muscle use. Clear to auscultation. Breath sounds equal bilaterally. GASTROINTESTINAL: Abdomen soft, non-tender, nondistended. Hepatic and splenic margins not palpable. MUSCULOSKELETAL: Extremities without clubbing, cyanosis, or edema. No obvious deformities. NEUROLOGICAL: Awake and alert. No obvious cranial nerve deficits. Motor grossly within normal limits. Five out of 5 muscle strength in the arms and legs. Normal speech. PSYCHIATRIC: Appropriate mood and affect; insight and judgment normal. Caprini VTE Risk Assessment Caprini VTE Risk Assessment: No/Low Risk (score <= 1) Caprini Risk Assessment Model: Point Value = 1 Point Value = 2 Point Value = 3 Point Value = 5 Age 41-60 Minor surgery BMI > 25 kg/m2 Swollen legs Varicose veins or History of unexplained or recurrent spontaneous Oral contraceptives or hormone replacement Sepsis (< 1 month) Serious lung disease, including pneumonia (< 1 month) Abnormal pulmonary function Acute myocardial infarction Congestive heart failure (< 1 month) History of inflammatory bowel disease Medical patient at bed rest Age 61-74 Arthroscopic surgery Major open surgery (> 45 min) Laparoscopic surgery (> 45 min) Malignancy Confined to bed (> 72 hours) Immobilizing plaster cast Central venous access Age >= 75 History of VTE Family history of VTE Factor V Leiden Prothrombin [id number] Lupus anticoagulant Anticardiolipin antibodies Elevated serum homocysteine Heparin-induced thrombocytopenia Other congenital or acquired thrombophilia Stroke (< 1 month) Elective arthroplasty Hip, pelvis, or leg fracture Acute spinal cord injury (< 1 month) Prophylaxis Regimen: Total Risk Factor Score Risk Level Prophylaxis Regimen 0-1 Low Early ambulation 2 Moderate Order ONE of the following: *Sequential Compression Device (SCD) *Heparin 5000 units SQ BID 3-4 Higher Order ONE of the following medications: *Heparin 5000 units SQ TID *Enoxaparin/Lovenox 40 mg SQ daily (WT < 150 kg, CrCl > 30 mL/min) *Enoxaparin/Lovenox 30 mg SQ daily (WT < 150 kg, CrCl > 10-29 mL/min) *Enoxaparin/Lovenox 30 mg SQ BID (WT < 150 kg, CrCl > 30 mL/min) AND/OR *Sequential Compression Device (SCD) 5 or more Highest Order ONE of the following medications: *Heparin 5000 units SQ TID (Preferred with Epidurals) *Enoxaparin/Lovenox 40 mg SQ daily (WT < 150 kg, CrCl > 30 mL/min) *Enoxaparin/Lovenox 30 mg SQ daily (WT < 150 kg, CrCl > 10-29 mL/min) *Enoxaparin/Lovenox 30 mg SQ BID (WT < 150 kg, CrCl > 30 mL/min) AND *Sequential Compression Device (SCD) Assessment and Plan - Assessment (1) Acute sickle cell crisis Code(s): D57.00 - Hb-SS disease with crisis, unspecified Status: Acute - Plan 37-year-old female with Vaso-occlusive crisis Start aggressive IV fluid resuscitation, parenteral pain management with IV Dilaudid Resume Hydrea however will hold Jadenu Check LDH and reticulocyte count times 3 days Hematology consultation as needed Hypertension Resume Norvasc 10 mg daily History of sickle cell anemia H&H stable, continue to monitor DVT prophylaxis: Lovenox
[2018-01-09] MEDS: HYDROmorphone PF Inj 1 MG/ML Ampul IV.PUSH PRN ×3 (16:19→23:48)
[2018-01-09] MEDS: Sod Chloride 0.9% Inj 1,000 ML IV.CONT SCH (16:21)
[2018-01-09] MEDS: Enoxaparin Inj 30 MG/0.3 ML Syringe SQ SCH (16:22)
[2018-01-09] MEDS: Hydroxyurea 500 MG Capsule PO SCH (17:40)
[2018-01-09] MEDS: Senna/Docusate Sodium 8.6/50 MG Tablet PO SCH (21:08)
[2018-01-10] MEDS: HYDROmorphone PF Inj 1 MG/ML Ampul IV.PUSH PRN ×7 (03:25→21:08)
[2018-01-10] MEDS: Sod Chloride 0.9% Inj 1,000 ML IV.CONT SCH ×2 (04:52→18:35)
[2018-01-10 06:10] LABS: Mean Corpuscular HGB Conc 33.7 % (32.0-36.0); Mean Platelet Volume 8.8 fL (7.0-11.0); Platelet Count 266 th/mm3 (150-450); Red Blood Count 2.18 mil/mm3 (4.00-5.30); Red Cell Distribution Width 29.3 % (11.6-17.2); White Blood Count 12.3 th/mm3 (4.0-11.0)
[2018-01-10 06:16] LABS: Hematocrit 20.1 % (35.0-46.0); Hemoglobin 6.8 gm/dL (11.6-15.3)
[2018-01-10 06:25] LABS: Chloride 109 meq/L (98-107); Sodium 141 meq/L (136-145)
[2018-01-10 06:28] LABS: Anion Gap 6 meq/L (5-15); Blood Urea Nitrogen 4 mg/dL (7-18); Carbon Dioxide 26.1 meq/L (21.0-32.0); Glucose,Random 86 mg/dL (74-106)
[2018-01-10 06:30] LABS: Eosinophils 9 % (0-4); Lymphocytes 44 % (9-44); Monocytes 4 % (0-8); Tallied Nucleated RBC 2 (0-0)
[2018-01-10 06:31] LABS: Glomerular Filtration Rate Greater Than 89 mL/min (>89); Ovalocytes 1+; Polychromasia 3.5 % (0.0-1.9); Sickle Cells 2+; Target Cells 1+
[2018-01-10 06:32] LABS: Platelet Estimate Normal (Normal); Platelet Morphology Normal (Normal)
[2018-01-10] MEDS: Hydroxyurea 500 MG Capsule PO SCH ×3 (08:17→17:20)
[2018-01-10] MEDS: Folic Acid 1 MG Tablet PO SCH (08:17)
[2018-01-10] MEDS: Senna/Docusate Sodium 8.6/50 MG Tablet PO SCH ×2 (08:17→21:08)
[2018-01-10] MEDS: amLODIPine 5 MG Tablet PO SCH (08:17)
[2018-01-10] MEDS ORDERED: Influenza (Quadrivalent) Vaccine 0.5 ML Syringe IM ONE (09:00)
[2018-01-10 10:03] LABS: Reticulocyte Percent 15.8 % (0.4-3.0)
--- NOTE | 2018-01-10 10:36 | P.PN ---
Subjective Interval history: Follow-up sickle cell crisis January 10, 2018-patient seen and examined, reports some improvement of pain in her chest, arms and legs. Currently afebrile. Denies any GI bleed. Physical Exam Vital signs: Vital Signs 01/09/18 13:00 01/09/18 16:00 01/09/18 20:00 Temperature 96.9 F L 97.5 F L 97.8 F Pulse Rate 67 89 86 Respiratory Rate 20 20 16 Blood Pressure 115/69 121/79 121/81 Pulse Oximetry 99 93 L 96 01/09/18 21:08 01/10/18 00:00 01/10/18 07:22 Temperature 97.7 F Pulse Rate 79 Respiratory Rate 18 16 18 Blood Pressure 107/69 Pulse Oximetry 97 01/10/18 08:00 01/10/18 10:04 Temperature 97.0 F L Pulse Rate 79 Respiratory Rate 16 16 Blood Pressure 110/65 Pulse Oximetry 94 L Intake & Output 01/09/18 01/10/18 01/10/18 18:59 06:59 18:59 Intake Total 461 / 461 1000 / 1000 Balance 461 / 461 1000 / 1000 Weight 68.1 kg Intake: IV 1000 / 1000 NS Inj 1,000 ML @ 70 mls/hr IV. 1000 / 1000 CONT .[id number] [facility] Rx#: [id number] Oral 461 / 461 Other: Date of Last Bowel Movement 01/09/18 01/09/18 Narrative: GENERAL: NAD SKIN: Warm and dry. HEAD: Atraumatic. Normocephalic. EYES: Pupils equal and round. No scleral icterus. No injection or drainage. ENT: No nasal bleeding or discharge. Mucous membranes pink and moist. NECK: Trachea midline. No JVD. CARDIOVASCULAR: Regular rate and rhythm. RESPIRATORY: No accessory muscle use. Clear to auscultation. Breath sounds equal bilaterally. GASTROINTESTINAL: Abdomen soft, non-tender, nondistended. Hepatic and splenic margins not palpable. MUSCULOSKELETAL: Extremities without clubbing, cyanosis, or edema. No obvious deformities. NEUROLOGICAL: Awake and alert. No obvious cranial nerve deficits. Motor grossly within normal limits. Five out of 5 muscle strength in the arms and legs. Normal speech. PSYCHIATRIC: Appropriate mood and affect; insight and judgment normal. Results - Labs CBC & Chem 7: 01/10/18 05:45 01/10/18 05:45 Laboratory Results - last 24 hr 01/10/18 01/10/18 01/10/18 05:45 05:45 05:45 CBC w Diff Slide review pending WBC 12.3 H RBC 2.18 L Hgb 6.8 L* Hct 20.1 L* MCV 92.0 MCH 31.0 MCHC 33.7 RDW 29.3 H Plt Count 266 MPV 8.8 WBC Differential Manual diff final Seg Neuts % (Manual) 43 Lymphocytes % (Manual) 44 Monocytes % (Manual) 4 Eosinophils % (Manual) 9 H Abs Neuts (Manual) 5.3 Nucleated RBCs/100 WBC 2 H Differential Comment . Platelet Estimate Normal Platelet Morphology Normal Polychromasia 3.5 H Sickle Cells 2+ H Target Cells 1+ H Ovalocytes 1+ H Retic Count 15.8 H Absolute Retic 324.8 H Sodium 141 Potassium 4.0 Chloride 109 H Carbon Dioxide 26.1 Anion Gap 6 BUN 4 L Creatinine 0.83 Estimated GFR Greater than 89 Random Glucose 86 Calcium 8.0 L Assessment and Plan - Assessment (1) Acute sickle cell crisis Code(s): D57.00 - Hb-SS disease with crisis, unspecified Status: Inactive - Plan 37-year-old female with Vaso-occlusive crisis Continue aggressive IV fluid resuscitation, parenteral pain management with IV Dilaudid currently on Hydrea and continue to hold Jadenu Continue to Check LDH and reticulocyte count times 3 days Hematology consultation as needed Hypertension On Norvasc 10 mg daily History of sickle cell anemia H&H stable, continue to monitor DVT prophylaxis: Lovenox
[2018-01-10 11:07] LABS: Lactate Dehydrogenase 429 U/L (84-246)
[2018-01-10] MEDS: Enoxaparin Inj 30 MG/0.3 ML Syringe SQ SCH (14:00)
[2018-01-11] MEDS: HYDROmorphone PF Inj 1 MG/ML Ampul IV.PUSH PRN ×7 (01:55→21:07)
[2018-01-11 06:46] LABS: Mean Corpuscular HGB Conc 34.2 % (32.0-36.0); Mean Corpuscular Hemoglobin 30.8 pg (27.0-34.0); Mean Corpuscular Volume 90.1 fL (80.0-100.0); Mean Platelet Volume 8.6 fL (7.0-11.0); Platelet Count 258 th/mm3 (150-450); Red Blood Count 2.13 mil/mm3 (4.00-5.30); Red Cell Distribution Width 29.1 % (11.6-17.2); White Blood Count 13.2 th/mm3 (4.0-11.0)
[2018-01-11 07:23] LABS: Hematocrit 19.2 % (35.0-46.0); Hemoglobin 6.6 gm/dL (11.6-15.3)
[2018-01-11] MEDS: Senna/Docusate Sodium 8.6/50 MG Tablet PO SCH ×2 (08:15→21:08)
[2018-01-11] MEDS: Folic Acid 1 MG Tablet PO SCH (08:15)
[2018-01-11] MEDS: amLODIPine 5 MG Tablet PO SCH (08:16)
[2018-01-11] MEDS: Hydroxyurea 500 MG Capsule PO SCH ×3 (08:16→17:15)
[2018-01-11] MEDS ORDERED: Acetaminophen 325 MG Tablet PO PRN (08:49)
[2018-01-11 08:50] LABS: Eosinophils 8 % (0-4); Lymphocytes 14 % (9-44); Metamyelocytes 2 % (0-1); Monocytes 8 % (0-8); Myelocytes 3 % (0-0)
[2018-01-11 08:51] LABS: Ovalocytes 1+; Sickle Cells 2+; Target Cells 2+; Tear Drop Cells 1+
[2018-01-11 08:52] LABS: Platelet Estimate Normal (Normal); Platelet Morphology Normal (Normal)
[2018-01-11] MEDS ORDERED: Sodium Chlor 0.9% Inj 250 ML IV.SIG SCH (09:00)
[2018-01-11 10:03] LABS: Reticulocyte Percent 15.9 % (0.4-3.0)
[2018-01-11] MEDS: Sod Chloride 0.9% Inj 1,000 ML IV.CONT SCH ×2 (10:57→22:31)
--- NOTE | 2018-01-11 11:06 | P.PN ---
Subjective Interval history: Follow-up sickle cell crisis January 11, 2018-patient seen and examined, planes of nausea without any emesis this a.m. H&H dropping. Reports some improvement of chest, arms and legs pain. Afebrile Physical Exam Vital signs: Vital Signs 01/10/18 11:34 01/10/18 13:38 01/10/18 15:43 Temperature 98.1 F 97.3 F L Pulse Rate 80 102 H Respiratory Rate 16 18 16 Blood Pressure 111/68 116/63 Pulse Oximetry 96 94 L 01/10/18 16:16 01/10/18 20:00 01/11/18 00:00 Temperature 97.6 F 98 F Pulse Rate 93 H 103 H Respiratory Rate 16 16 18 Blood Pressure 120/75 141/91 H Pulse Oximetry 98 97 01/11/18 08:00 Temperature 98.6 F Pulse Rate 101 H Respiratory Rate 22 Blood Pressure 120/72 Pulse Oximetry 97 Intake & Output 01/10/18 01/11/18 01/11/18 18:59 06:59 18:59 Intake Total 1000 / 1000 1420 / 1420 Balance 1000 / 1000 1420 / 1420 Weight 68.1 kg 71 kg Intake: IV 1000 / 1000 900 / 900 NS Inj 1,000 ML @ 70 mls/hr IV. 1000 / 1000 900 / 900 CONT .[id number] [facility] Rx#: [id number] Oral 520 / 520 Other: # Voids 5 3 Date of Last Bowel Movement 01/09/18 01/09/18 Weight On Admission 68.1 kg Narrative: GENERAL: NAD SKIN: Warm and dry. HEAD: Atraumatic. Normocephalic. EYES: Pupils equal and round. No scleral icterus. No injection or drainage. ENT: No nasal bleeding or discharge. Mucous membranes pink and moist. NECK: Trachea midline. No JVD. CARDIOVASCULAR: Regular rate and rhythm. RESPIRATORY: No accessory muscle use. Clear to auscultation. Breath sounds equal bilaterally. GASTROINTESTINAL: Abdomen soft, non-tender, nondistended. Hepatic and splenic margins not palpable. MUSCULOSKELETAL: Extremities without clubbing, cyanosis, or edema. No obvious deformities. NEUROLOGICAL: Awake and alert. No obvious cranial nerve deficits. Motor grossly within normal limits. Five out of 5 muscle strength in the arms and legs. Normal speech. PSYCHIATRIC: Appropriate mood and affect; insight and judgment normal. Results - Labs CBC & Chem 7: 01/11/18 06:40 01/10/18 05:45 Laboratory Results - last 24 hr 01/10/18 01/11/18 01/11/18 05:45 06:40 06:40 CBC w Diff Slide review pending WBC 13.2 H RBC 2.13 L Hgb 6.6 L* Hct 19.2 L* MCV 90.1 MCH 30.8 MCHC 34.2 RDW 29.1 H Plt Count 258 MPV 8.6 WBC Differential Manual diff final Seg Neuts % (Manual) 64 Band Neuts % (Manual) 1 Lymphocytes % (Manual) 14 Monocytes % (Manual) 8 Eosinophils % (Manual) 8 H Metamyelocytes % (Man) 2 H Myelocytes % (Man) 3 H Abs Neuts (Manual) 9.2 H Differential Comment . Platelet Estimate Normal Platelet Morphology Normal Sickle Cells 2+ H Target Cells 2+ H Tear Drop Cells 1+ H Ovalocytes 1+ H Retic Count 15.9 H Absolute Retic 324.6 H Lactate Dehydrogenase 429 H Blood Type Antibody Screen MTS Gel Crossmatch 01/11/18 01/11/18 06:40 09:05 CBC w Diff WBC RBC Hgb Hct MCV MCH MCHC RDW Plt Count MPV WBC Differential Seg Neuts % (Manual) Band Neuts % (Manual) Lymphocytes % (Manual) Monocytes % (Manual) Eosinophils % (Manual) Metamyelocytes % (Man) Myelocytes % (Man) Abs Neuts (Manual) Differential Comment Platelet Estimate Platelet Morphology Sickle Cells Target Cells Tear Drop Cells Ovalocytes Retic Count Absolute Retic Lactate Dehydrogenase 477 H Blood Type AB Positive Antibody Screen Negative MTS Gel Crossmatch See Detail Assessment and Plan - Assessment (1) Acute sickle cell crisis Code(s): D57.00 - Hb-SS disease with crisis, unspecified Status: Inactive (2) Sickle-cell anemia Code(s): D57.1 - Sickle-cell disease without crisis Status: Acute - Plan 37-year-old female with Vaso-occlusive crisis-improving Continue aggressive IV fluid resuscitation, parenteral pain management with IV Dilaudid currently on Hydrea and continue to hold Jadenu Continue to Check LDH and reticulocyte count times 3 days Hematology consultation as needed Sickle cell anemia Transfuse 1 unit packed red blood cell today January 11, 2018 Monitor H&H Hypertension On Norvasc 10 mg daily History of sickle cell anemia H&H stable, continue to monitor DVT prophylaxis: Lovenox
[2018-01-11] MEDS: Enoxaparin Inj 30 MG/0.3 ML Syringe SQ SCH (13:06)
[2018-01-12] MEDS: HYDROmorphone PF Inj 1 MG/ML Ampul IV.PUSH PRN ×7 (06:47→22:22)
[2018-01-12 07:30] LABS: Hematocrit 25.2 % (35.0-46.0); Hemoglobin 8.7 gm/dL (11.6-15.3); Mean Corpuscular HGB Conc 34.5 % (32.0-36.0); Mean Corpuscular Hemoglobin 32.1 pg (27.0-34.0); Mean Platelet Volume 9.5 fL (7.0-11.0); Platelet Count 242 th/mm3 (150-450); Red Blood Count 2.71 mil/mm3 (4.00-5.30); Red Cell Distribution Width 26.9 % (11.6-17.2); White Blood Count 10.1 th/mm3 (4.0-11.0)
[2018-01-12 07:45] LABS: Chloride 107 meq/L (98-107); Potassium 4.1 meq/L (3.5-5.1); Sodium 141 meq/L (136-145)
[2018-01-12 07:49] LABS: Calcium 8.1 mg/dL (8.5-10.1)
[2018-01-12 07:50] LABS: Albumin 2.8 g/dL (3.4-5.0); Anion Gap 5 meq/L (5-15); Blood Urea Nitrogen 4 mg/dL (7-18); Glucose,Random 83 mg/dL (74-106)
[2018-01-12 07:53] LABS: Alanine Aminotransferase 41 U/L (10-53); Aspartate Aminotransferase 68 U/L (15-37); Glomerular Filtration Rate 88 mL/min (>89)
[2018-01-12 07:54] LABS: Total Protein 6.9 g/dL (6.4-8.2)
[2018-01-12 07:56] LABS: Alkaline Phosphatase 111 U/L (45-117)
[2018-01-12 08:51] LABS: Corrected White Blood Count 9.1 th/mm3 (4.0-11.0); Eosinophils 17 % (0-4); Howell-Jolly Bodies Present; Lymphocytes 25 % (9-44); Monocytes 10 % (0-8); Ovalocytes 1+; Platelet Estimate Normal (Normal); Platelet Morphology Normal (Normal); Sickle Cells 2+; Tallied Nucleated RBC 11 (0-0); Target Cells 2+; Tear Drop Cells 1+
[2018-01-12] MEDS: Senna/Docusate Sodium 8.6/50 MG Tablet PO SCH ×2 (09:27→22:23)
[2018-01-12] MEDS: Folic Acid 1 MG Tablet PO SCH (09:27)
[2018-01-12] MEDS: amLODIPine 5 MG Tablet PO SCH (09:27)
[2018-01-12] MEDS: Hydroxyurea 500 MG Capsule PO SCH ×3 (09:27→18:22)
[2018-01-12] MEDS ORDERED: Aluminum/Magnesium/Simethacone Susp 30 ML UDC PO PRN (10:16)
--- NOTE | 2018-01-12 10:18 | P.PNIM ---
Subjective Interval history: f/u; sickle cell crisis in no acute distress. pain seems to be improving. complaining of acid reflux. Physical Exam Vital signs: Vital Signs 01/11/18 11:57 01/11/18 12:00 01/11/18 12:15 Temperature 97.8 F 97.8 F 97.8 F Pulse Rate 109 H 115 H 102 H Respiratory Rate 16 20 16 Blood Pressure 117/67 147/67 H 142/78 H Pulse Oximetry 91 L 95 94 L 01/11/18 13:52 01/11/18 16:00 01/11/18 20:00 Temperature 98.6 F 97.5 F L 98.1 F Pulse Rate 98 H 87 90 Respiratory Rate 16 20 18 Blood Pressure 118/78 126/78 131/80 Pulse Oximetry 95 97 98 01/11/18 22:00 01/12/18 00:00 01/12/18 00:39 Temperature 98.4 F Pulse Rate 90 Respiratory Rate 18 18 18 Blood Pressure 130/79 Pulse Oximetry 98 01/12/18 07:19 01/12/18 08:00 Temperature 97.4 F L Pulse Rate 87 Respiratory Rate 18 20 Blood Pressure 133/83 Pulse Oximetry 92 L Intake & Output 01/11/18 01/12/18 01/12/18 18:59 06:59 18:59 Intake Total 900 / 900 1330 / 1330 Balance 900 / 900 1330 / 1330 Weight 71.8 kg Intake: IV 1090 / 1090 NS Inj 1,000 ML @ 70 mls/hr IV. 1000 / 1000 CONT .[id number] [facility] Rx#: [id number] NS Inj 250 ML @ 15 mls/hr IV. 90 / 90 SIG ONCE MARLON Rx#:[id number] Oral 500 / 500 240 / 240 Intake (Blood Product) Amt 400 / 400 Rbc As-3 Leukoreduced Unit 400 / 400 [id number] Other: # Voids 3 3 Date of Last Bowel Movement 01/09/18 01/09/18 01/09/18 - Constitutional no acute distress - Routine Respiratory Exam Present: CTA bilaterally - Routine Cardiovascular Exam Present: RRR - Routine Abdominal Exam Present: soft - Routine Extremities Exam Comments: no pedal edema. - Routine Neurological Exam Present: alert, oriented X3 Results - Labs CBC & Chem 7: 01/12/18 06:45 01/12/18 06:45 Laboratory Results - last 24 hr 01/11/18 01/12/18 01/12/18 09:05 06:45 06:45 CBC w Diff Slide review pending WBC 10.1 Corrected WBC 9.1 RBC 2.71 L Hgb 8.7 L D Hct 25.2 L MCV 93.0 MCH 32.1 MCHC 34.5 RDW 26.9 H Plt Count 242 MPV 9.5 WBC Differential Manual diff final Seg Neuts % (Manual) 48 Lymphocytes % (Manual) 25 Monocytes % (Manual) 10 H Eosinophils % (Manual) 17 H Abs Neuts (Manual) 4.4 Nucleated RBCs/100 WBC 11 H Differential Comment . Platelet Estimate Normal Platelet Morphology Normal Sickle Cells 2+ H Target Cells 2+ H Tear Drop Cells 1+ H Ovalocytes 1+ H Car[place]allo-Soldier Bodies Present H Keratocytes Occ H Sodium 141 Potassium 4.1 Chloride 107 Carbon Dioxide 29.0 Anion Gap 5 BUN 4 L Creatinine 0.88 Estimated GFR 88 L Random Glucose 83 Calcium 8.1 L Total Bilirubin 1.5 H AST 68 H ALT 41 Alkaline Phosphatase 111 Total Protein 6.9 D Albumin 2.8 L Blood Type AB Positive Antibody Screen Negative MTS Gel Crossmatch See Detail Assessment and Plan - Assessment (1) Acute sickle cell crisis Code(s): D57.00 - Hb-SS disease with crisis, unspecified Status: Inactive (2) Sickle-cell anemia Code(s): D57.1 - Sickle-cell disease without crisis Status: Acute - Plan Vaso-occlusive crisis-improving Continue aggressive IV fluid resuscitation, parenteral pain management with IV Dilaudid currently on Hydrea and continue to hold Jadenu Hematology consultation as needed Sickle cell anemia Transfuse 1 unit packed red blood cell January 11, 2018 Monitor H&H Hypertension On Norvasc 10 mg daily History of sickle cell anemia H&H stable, continue to monitor DVT prophylaxis: Lovenox Discharge Planning: possible discharge home tomorrow if pain continues to improve.
[2018-01-12 10:29] LABS: Reticulocyte Percent 17.2 % (0.4-3.0)
[2018-01-12] MEDS: Sod Chloride 0.9% Inj 1,000 ML IV.CONT SCH (13:21)
[2018-01-12] MEDS: Enoxaparin Inj 30 MG/0.3 ML Syringe SQ SCH (15:14)
[2018-01-13] MEDS: Sod Chloride 0.9% Inj 1,000 ML IV.CONT SCH ×2 (06:02→18:53)
[2018-01-13] MEDS: amLODIPine 5 MG Tablet PO SCH (09:40)
[2018-01-13] MEDS: Hydroxyurea 500 MG Capsule PO SCH ×3 (09:40→18:15)
[2018-01-13] MEDS: Senna/Docusate Sodium 8.6/50 MG Tablet PO SCH (09:40)
[2018-01-13] MEDS: Folic Acid 1 MG Tablet PO SCH (09:40)
[2018-01-13] MEDS: HYDROmorphone PF Inj 1 MG/ML Ampul IV.PUSH PRN ×3 (09:41→16:23)
[2018-01-13 10:56] LABS: Hematocrit 26.2 % (35.0-46.0); Hemoglobin 9.1 gm/dL (11.6-15.3); Mean Corpuscular HGB Conc 34.8 % (32.0-36.0); Mean Corpuscular Hemoglobin 31.6 pg (27.0-34.0); Mean Corpuscular Volume 90.6 fL (80.0-100.0); Mean Platelet Volume 9.8 fL (7.0-11.0); Platelet Count 273 th/mm3 (150-450); Red Cell Distribution Width 26.2 % (11.6-17.2); White Blood Count 11.4 th/mm3 (4.0-11.0)
[2018-01-13 11:22] VITALS: RESP 16
[2018-01-13 11:30] LABS: Eosinophils 3 % (0-4); Lymphocytes 15 % (9-44); Monocytes 4 % (0-8); Myelocytes 1 % (0-0)
[2018-01-13 11:31] LABS: Platelet Estimate Normal (Normal)
[2018-01-13 11:37] LABS: Platelet Morphology Normal (Normal); Sickle Cells 1+
--- NOTE | 2018-01-13 11:46 | P.PNIM ---
Subjective Interval history: f/u; sickle cell painful crisis looks and feels much better today. pain is much better. no new complaints. afebrile. wants to go home today. Physical Exam Vital signs: Vital Signs 01/12/18 12:00 01/12/18 16:00 01/12/18 20:00 Temperature 96.7 F L 97.9 F 97.6 F Pulse Rate 103 H 103 H 105 H Respiratory Rate 20 20 16 Blood Pressure 144/88 H 138/84 118/77 Pulse Oximetry 90 L 90 L 95 01/13/18 00:00 01/13/18 08:00 01/13/18 11:22 Temperature 97.8 F 99.2 F Pulse Rate 105 H 88 Respiratory Rate 16 15 16 Blood Pressure 114/73 142/72 H Pulse Oximetry 94 L 94 L Intake & Output 01/12/18 01/13/18 01/13/18 18:59 06:59 18:59 Intake Total 1000 / 1000 1000 / 1000 Balance 1000 / 1000 1000 / 1000 Intake: IV 1000 / 1000 1000 / 1000 NS Inj 1,000 ML @ 70 mls/hr IV. 1000 / 1000 1000 / 1000 CONT .[id number] [facility] Rx#: [id number] Other: Date of Last Bowel Movement 01/09/18 - Constitutional no acute distress - Routine Respiratory Exam Present: CTA bilaterally - Routine Cardiovascular Exam Present: RRR - Routine Abdominal Exam Present: soft - Routine Extremities Exam Comments: no pedal edema. - Routine Neurological Exam Present: alert, oriented X3 Results - Labs CBC & Chem 7: 01/13/18 10:30 01/12/18 06:45 Laboratory Results - last 24 hr 01/13/18 10:30 CBC w Diff Slide review pending WBC 11.4 H RBC 2.90 L Hgb 9.1 L Hct 26.2 L MCV 90.6 MCH 31.6 MCHC 34.8 RDW 26.2 H Plt Count 273 MPV 9.8 WBC Differential Manual diff final Seg Neuts % (Manual) 73 H Band Neuts % (Manual) 4 Lymphocytes % (Manual) 15 Monocytes % (Manual) 4 Eosinophils % (Manual) 3 Myelocytes % (Man) 1 H Abs Neuts (Manual) 8.9 H Differential Comment . Platelet Estimate Normal Platelet Morphology Normal Sickle Cells 1+ H Assessment and Plan - Assessment (1) Acute sickle cell crisis Code(s): D57.00 - Hb-SS disease with crisis, unspecified Status: Inactive (2) Sickle-cell anemia Code(s): D57.1 - Sickle-cell disease without crisis Status: Acute - Plan sickle cell painful crisis improved clinically. on Hydrea . f/u with Hematology as outpatient. Sickle cell anemia Transfused with 1 unit packed red blood cell January 11, 2018 H/H has improved. Hypertension On Norvasc 10 mg daily DVT prophylaxis: Lovenox Discharge Planning: dc home today. see med list. f/u; pcp and hematology. d/w the patient. E-Foarsce was reviewed before discharge.
--- NOTE | 2018-01-13 11:49 | P.DS ---
Date of admission: 01/11/18 13:26 Primary care physician: UNKNOWN Brief History from admission: 37-year-old -[place] female for past medical history of sickle cell disease and anemia presented to the ED for evaluation of chest, legs and arms pain times 7 days duration rated over 8 in intensity. She also over the past 2 days has had nausea and vomiting and one episode of diarrhea, however denies any sick contact. Patient reports sickle cell crisis worse than usual leading to generalized fatigue. She denies any shortness of breath, GI bleed. She denies any febrile episode. Patient was seen by her lamp mechanic last week and no change was made in her medications. DS: Diagnosis - Discharge Diagnosis (1) Acute sickle cell crisis Status: Inactive (2) Sickle-cell anemia Status: Acute DS: Summary Hospital Course: patient was admitted with sickle cell painful crisis. she was started on pain control. she received a unit of PRBC. her H/H improved along with her pain. she will be discharged home with f/u with her pcp and lamp mechanic. - Time Spent with Patient Total time spent providing and/or coordinating discharge services: Less than 30 minutes - Quality: VTE Deep Vein Thrombosis/Pulmonary Embolism Present on Admission: No Exam Vital signs: Vital Signs 01/12/18 12:00 01/12/18 16:00 01/12/18 20:00 Temperature 96.7 F L 97.9 F 97.6 F Pulse Rate 103 H 103 H 105 H Respiratory Rate 20 20 16 Blood Pressure 144/88 H 138/84 118/77 Pulse Oximetry 90 L 90 L 95 01/13/18 00:00 01/13/18 08:00 01/13/18 11:22 Temperature 97.8 F 99.2 F Pulse Rate 105 H 88 Respiratory Rate 16 15 16 Blood Pressure 114/73 142/72 H Pulse Oximetry 94 L 94 L Intake & Output 01/12/18 01/13/18 01/13/18 18:59 06:59 18:59 Intake Total 1000 / 1000 1000 / 1000 Balance 1000 / 1000 1000 / 1000 Intake: IV 1000 / 1000 1000 / 1000 NS Inj 1,000 ML @ 70 mls/hr IV. 1000 / 1000 1000 / 1000 CONT .[id number] [facility] Rx#: [id number] Other: Date of Last Bowel Movement 01/09/18 - Constitutional no acute distress - Routine Respiratory Exam Present: CTA bilaterally - Routine Cardiovascular Exam Present: RRR - Routine Abdominal Exam Present: soft - Routine Extremities Exam Comments: no pedal edema. - Routine Neurological Exam Present: alert, oriented X3 Results Procedures completed during hospitalization: none. Labs on day of discharge: Labs from last 24 hours 01/13/18 10:30 CBC w Diff Slide review pending WBC 11.4 H RBC 2.90 L Hgb 9.1 L Hct 26.2 L MCV 90.6 MCH 31.6 MCHC 34.8 RDW 26.2 H Plt Count 273 MPV 9.8 WBC Differential Manual diff final Seg Neuts % (Manual) 73 H Band Neuts % (Manual) 4 Lymphocytes % (Manual) 15 Monocytes % (Manual) 4 Eosinophils % (Manual) 3 Myelocytes % (Man) 1 H Abs Neuts (Manual) 8.9 H Differential Comment . Platelet Estimate Normal Platelet Morphology Normal Sickle Cells 1+ H Discharge Plan - Discharge Disposition Patient Disposition: 01 Discharge Home - Discharge Condition Condition: Good - Discharge Order Discharge Orders: Discharge Order (Routine); Ordered 01/13/18 Ordered By: Shakira Comer - Physicians Team Primary Care Provider: RAO, Attending Provider: Shakira Comer Other Providers: Devang Siddiqi - Rxs /Orders / Referrals /Forms Prescriptions: Continue amlodipine 5 mg Tablet 5 mg PO DAILY aspirin 81 mg Tablet,Chewable 81 mg PO DAILY deferasirox [Jadenu] 180 mg Tablet 180 mg PO DAILY folic acid 1 mg Tablet 1 mg PO DAILY hydromorphone [Dilaudid] 2 mg Tablet 1 mg PO Q6HR PRN (Reason: Pain) hydroxyurea 500 mg Capsule 500 mg PO TID Referrals: UNKNOWN, [Primary Care Provider] - See Instructions - Discharge Instructions Patient Printed Instructions: Advance Directives (DC)
[2018-01-13] MEDS: Enoxaparin Inj 30 MG/0.3 ML Syringe SQ SCH (14:57)
[2018-01-13 16:38] VITALS: BP 138/80; PULSE 93; TEMP 97.8
[2018-01-13 16:50] VITALS: O2SAT 100
[2018-01-13] MEDS ORDERED: Heparin Central Flush 100 UNIT/ML 5 ML Vial IV.FLUSH PRN ×2 (18:12)
== END 2018-01-13 18:55 | disposition home or self-care (01) ==
LOC: INTOOBSV 13:19 → PH3 13:19
PROVIDERS: ADMIT Internal Medicine; ATTEND Internal Medicine

== ENCOUNTER 2018-02-04 02:56 | Inpatient (IN) ==
[2018-02-04] MEDS ORDERED: HYDROmorphone PF Inj 2 MG/ML Vial IV.PUSH ONE (03:38)
[2018-02-04] MEDS ORDERED: Sod Chloride 0.9% Inj 1,000 ML IV.SIG ONE (03:39)
[2018-02-04 04:20] LABS: Chloride 108 meq/L (98-107); Potassium 3.8 meq/L (3.5-5.1); Sodium 141 meq/L (136-145)
--- NOTE | 2018-02-04 04:23 | XR ---
EXAM DATE: 02/04/2018 4:03 AM EST AGE/SEX: 37 years / Female INDICATIONS: Chest pain, sickle cell crisis. CLINICAL DATA: This is the patient's initial encounter. Patient reports that signs and symptoms have been present for 2 days and indicates a pain score of 10/10. MEDICAL/SURGICAL HISTORY: . Sickle Cell disease. Hypertension. Deep venous thrombosis. Thromboc ytopenia. Chronic kidney disease. Avascular necrosis. . Appendectomy. Cholecystectomy. Infusaport. B ack surgery COMPARISON: HPO, CHEST 2V PA&LAT, 02/03/2018. . FINDINGS: A single AP view of the chest demonstrates the lungs to be symmetrically aerated without evidence of mass, infiltrate or effusion. The cardiomediastinal contours are unremarkable. Multiple anchoring sc rews with vertical stabilizer bar involving the right lateral aspect of the thoracic spine. Port-A-Ca th overlies the right chest. CONCLUSION: No acute cardiopulmonary disease. Electronically signed by: Montez Medina MD 02/04/2018 4:22 AM EST
[2018-02-04 04:24] LABS: Albumin 3.3 g/dL (3.4-5.0); Anion Gap 7 meq/L (5-15); Blood Urea Nitrogen 9 mg/dL (7-18); Calcium 8.2 mg/dL (8.5-10.1); Carbon Dioxide 25.6 meq/L (21.0-32.0); Glucose,Random 98 mg/dL (74-106)
[2018-02-04 04:27] LABS: Alanine Aminotransferase 25 U/L (10-53); Aspartate Aminotransferase 59 U/L (15-37); Glomerular Filtration Rate 76 mL/min (>89)
[2018-02-04 04:29] LABS: Total Protein 7.5 g/dL (6.4-8.2)
[2018-02-04 04:30] LABS: Alkaline Phosphatase 103 U/L (45-117)
[2018-02-04 04:42] LABS: Bilirubin,Urine Negative (Negative); Clarity,Urine Clear (Clear); Color,Urine Yellow (Yellw/Straw); Glucose,Urine (UA) Negative (Negative); Leukocyte Esterase,Urine Negative (Negative); Nitrite,Urine Negative (Negative); Specific Gravity,Urine 1.015 (1.002-1.035); Urobilinogen,Urine 0.2 mg/dL (Less than 2)
[2018-02-04 04:48] LABS: Bacteria,Urine Moderate /hpf; WBC,Urine 0-5 /hpf (0-5)
[2018-02-04 04:49] LABS: Squamous Epithelial Cell,Urine Greater than 10 /hpf (0-5)
[2018-02-04 04:52] LABS: Hemoglobin 7.6 gm/dL (11.6-15.3); Mean Corpuscular Hemoglobin 34.4 pg (27.0-34.0); Mean Corpuscular Volume 91.4 fL (80.0-100.0); Platelet Count 287 th/mm3 (150-450); Red Blood Count 2.21 mil/mm3 (4.00-5.30); Red Cell Distribution Width 24.8 % (11.6-17.2)
--- NOTE | 2018-02-04 04:52 | ED ---
HPI General Chief complaint: Sickle Cell Stated complaint: sickle cell crisis Time Seen by Provider: 02/04/18 03:09 Source: patient Mode of arrival: ambulatory Limitations: no limitations History of Present Illness HPI narrative: Had severe pain this morning she was in our ER she was treated and then discharged at that time her to count was 7.5 her H&H was 8/23. Now she is coming back with continued worsening pain in her femurs lower back chest sternum area. Her labs show drop in HCT to 20 hgb=7.6 . Her technical professional is Dr. Shea... patient is return visit within 24-hour. Repeat visit for his severe pain ischemic crisis-like pain in her similar areas of pain ... She is not short of breath she does not appear to be severely jaundiced but her pain is not being managed with her outpatient medication ... need to admit her for continued oxygenation IV fluid and pain management Related Data Home Medications Medication Instructions Recorded Confirmed deferasirox [Jadenu] 180 mg PO DAILY 10/17/17 02/04/18 folic acid 1 mg PO DAILY 10/17/17 02/04/18 hydromorphone [Dilaudid] 1 mg PO Q6HR PRN 10/17/17 02/04/18 hydroxyurea 500 mg PO TID 10/17/17 02/04/18 amlodipine 5 mg PO DAILY 01/09/18 02/04/18 aspirin 81 mg PO DAILY 01/09/18 02/04/18 Previous Rx's Medication Instructions Recorded ondansetron [Zofran ODT] 4 mg PO Q6H PRN #12 tab 02/03/18 Allergies Allergy/AdvReac Type Severity Reaction Status Date / Time ketorolac Allergy Severe Itching Verified 02/03/18 07:00 morphine Allergy Mild Swelling Verified 02/03/18 07:00 ibuprofen AdvReac Severe Urinary Verified 02/03/18 07:00 Freq (Inc/Dec) methadone AdvReac Severe DEPRESSION Verified 02/03/18 07:00 Review of Systems ROS: all other systems reviewed are negative [facility] Medical History Medical History H/O sickle cell anemia (Acute) Avascular necrosis (Acute) CKD (chronic kidney disease) (Acute) DVT (deep venous thrombosis) (Acute) Sepsis (Acute) Thrombocytopenia (Acute) Surgical History Surgical History History of cholecystectomy (Acute) History of hip replacement (Acute) Previous back surgery (Acute) History of appendectomy (Acute) Family History Family History Other Hypertension Social History Social History Substance History: No History of Abuse Second Hand Smoke Exposure: No Smoking Status: Never smoker How Often Do You Have a Drink Containing Alcohol: Never Immunization History Tetanus Immunization: Unsure Exam Narrative Exam Narrative: GENERAL: mild distress of pain crisis SKIN: Warm and dry. HEAD: Atraumatic. Normocephalic. EYES: Pupils equal and round. No scleral icterus. No injection or drainage. ENT: No nasal bleeding or discharge. Mucous membranes pink and moist. NECK: Trachea midline. No JVD. CARDIOVASCULAR: Regular rate and rhythm. RESPIRATORY: No accessory muscle use. Clear to auscultation. Breath sounds equal bilaterally. GASTROINTESTINAL: Abdomen soft, non-tender, nondistended. Hepatic and splenic margins not palpable. MUSCULOSKELETAL: Extremities femur condyle area pain bilateral NEUROLOGICAL: Awake and alert. No obvious cranial nerve deficits. Motor grossly within normal limits. Five out of 5 muscle strength in the arms and legs. Normal speech. PSYCHIATRIC: Appropriate mood and affect; insight and judgment normal. Course Initial Documented Vital Signs Temperature 98.9 F 02/04/18 03:26 Pulse Rate 97 H 02/04/18 03:26 Respiratory Rate 16 02/04/18 03:26 Blood Pressure 140/83 02/04/18 03:26 Pulse Oximetry 94 L 02/04/18 03:26 Last Documented Vital Signs Temperature 97.6 F 02/06/18 08:00 Pulse Rate 88 02/06/18 08:00 Respiratory Rate 20 02/06/18 08:00 Blood Pressure 122/74 02/06/18 08:00 Pulse Oximetry 96 02/06/18 08:09 Medical Decision Making [facility] Narrative Medical decision making narrative: worsening anemia and return visit for pain controll will admit, Treated with nasal canula and IV fluid and dilaudid and benadyl and Admit Medical Screen Exam Complete: Yes Emergency Medical Condition: Yes Differential Diagnosis Differential Diagnosis: SCD with acute blast crisis occlusive crisis acute chest syndrome other Medical Records Medical records reviewed: Yes I reviewed the patient's medical records. Lab Data Result diagrams: 02/06/18 06:49 02/06/18 06:49 Lab Results 02/04/18 02/04/18 02/04/18 Range/Units 03:55 03:55 03:55 CBC w Diff Slide review pending WBC 16.0 H (4.0-11.0) th/mm3 Corrected WBC 15.2 H (4.0-11.0) th/mm3 RBC 2.21 L (4.00-5.30) mil/mm3 Hgb 7.6 L (11.6-15.3) gm/dL Hct 20.2 L* (35.0-46.0) % MCV 91.4 (80.0-100.0) fL MCH 34.4 H (27.0-34.0) pg MCHC 37.6 H (32.0-36.0) % RDW 24.8 H (11.6-17.2) % Plt Count 287 (150-450) th/mm3 MPV 9.0 (7.0-11.0) fL Neut % (Auto) (16.0-70.0) % Lymph % (Auto) (9.0-44.0) % [place] % (Auto) (0.0-8.0) % Eos % (Auto) (0.0-4.0) % Baso % (Auto) (0.0-2.0) % Neut # (Auto) (1.8-7.7) th/mm3 Lymph # (Auto) (1.0-4.8) th/mm3 [place] # (Auto) (0.0-0.9) th/mm3 Eos # (Auto) (0.0-0.4) th/mm3 Baso # (Auto) (0.0-0.2) th/mm3 WBC Differential Manual diff final Seg Neuts % (Manual) 40 (16-70) % Band Neuts % (Manual) (0-6) % Lymphocytes % (Manual) 43 (9-44) % Monocytes % (Manual) 8 (0-8) % Eosinophils % (Manual) 6 H (0-4) % Basophils % (Manual) 3 H (0-2) % Abs Neuts (Manual) 6.1 (1.8-7.7) th/mm3 Nucleated RBCs/100 WBC 5 H (0-0) /100 WBC Differential Comment . Platelet Estimate Normal (Normal) Platelet Morphology Normal (Normal) Dimorphic RBCs Present H (None) Polychromasia 2.0 H (0.0-1.9) % Basophilic Stippling (None) Sickle Cells 3+ H (None) Target Cells 1+ H (None) Tear Drop Cells 1+ H (None) Ovalocytes 2+ H (None) Rouleaux (None) Retic Count 9.1 H (0.4-3.0) % Absolute Retic 200.8 H (20.0-150.0) mil/L Sodium 141 (136-145) meq/L Potassium 3.8 (3.5-5.1) meq/L Chloride 108 H (98-107) meq/L Carbon Dioxide 25.6 (21.0-32.0) meq/L Anion Gap 7 (5-15) meq/L BUN 9 (7-18) mg/dL Creatinine 1.00 (0.50-1.00) mg/dL Estimated GFR 76 L (>89) mL/min Random Glucose 98 (74-106) mg/dL Lactic Acid 0.8 (0.4-2.0) mmol/L Calcium 8.2 L (8.5-10.1) mg/dL Total Bilirubin 2.3 H (0.2-1.0) mg/dL Direct Bilirubin (0.0-0.2) mg/dL Indirect Bilirubin (0.0-0.8) mg/dL AST 59 H (15-37) U/L ALT 25 (10-53) U/L Alkaline Phosphatase 103 (45-117) U/L Lactate Dehydrogenase (84-246) U/L Total Protein 7.5 (6.4-8.2) g/dL Albumin 3.3 L (3.4-5.0) g/dL Urine Color (Yellw/Straw) Urine Clarity (Clear) Urine pH (5.0-8.5) Ur Specific [place] (1.002-1.035) Urine Protein (Neg-Trace) mg/dL Urine Glucose (UA) (Negative) mg/dL Urine Ketones (Negative) mg/dL Urine Occult Blood (Negative) Urine Nitrate (Negative) Urine Bilirubin (Negative) Urine Urobilinogen (Less than 2) mg/dL Ur Leukocyte Esterase (Negative) Urine WBC (0-5) /hpf Urine WBC Clumps (None) Ur Squamous Epith Cells (0-5) /hpf Urine Bacteria (None) /hpf Ur Microscopic Review 02/04/18 02/04/18 02/05/18 Range/Units 03:55 04:35 05:30 CBC w Diff Slide review pending WBC 14.8 H (4.0-11.0) th/mm3 Corrected WBC 13.0 H (4.0-11.0) th/mm3 RBC 2.15 L (4.00-5.30) mil/mm3 Hgb 7.4 L (11.6-15.3) gm/dL Hct 20.0 L* (35.0-46.0) % MCV 92.9 (80.0-100.0) fL MCH 34.5 H (27.0-34.0) pg MCHC 37.2 H (32.0-36.0) % RDW 26.2 H (11.6-17.2) % Plt Count 270 (150-450) th/mm3 MPV 9.2 (7.0-11.0) fL Neut % (Auto) (16.0-70.0) % Lymph % (Auto) (9.0-44.0) % [place] % (Auto) (0.0-8.0) % Eos % (Auto) (0.0-4.0) % Baso % (Auto) (0.0-2.0) % Neut # (Auto) (1.8-7.7) th/mm3 Lymph # (Auto) (1.0-4.8) th/mm3 [place] # (Auto) (0.0-0.9) th/mm3 Eos # (Auto) (0.0-0.4) th/mm3 Baso # (Auto) (0.0-0.2) th/mm3 WBC Differential Manual diff final Seg Neuts % (Manual) 41 (16-70) % Band Neuts % (Manual) 4 (0-6) % Lymphocytes % (Manual) 37 (9-44) % Monocytes % (Manual) 7 (0-8) % Eosinophils % (Manual) 9 H (0-4) % Basophils % (Manual) 2 (0-2) % Abs Neuts (Manual) 5.9 (1.8-7.7) th/mm3 Nucleated RBCs/100 WBC 14 H (0-0) /100 WBC Differential Comment . Platelet Estimate Normal (Normal) Platelet Morphology Normal (Normal) Dimorphic RBCs (None) Polychromasia (0.0-1.9) % Basophilic Stippling Faint H (None) Sickle Cells 3+ H (None) Target Cells 1+ H (None) Tear Drop Cells (None) Ovalocytes 1+ H (None) Rouleaux Present H (None) Retic Count (0.4-3.0) % Absolute Retic (20.0-150.0) mil/L Sodium (136-145) meq/L Potassium (3.5-5.1) meq/L Chloride (98-107) meq/L Carbon Dioxide (21.0-32.0) meq/L Anion Gap (5-15) meq/L BUN (7-18) mg/dL Creatinine (0.50-1.00) mg/dL Estimated GFR (>89) mL/min Random Glucose (74-106) mg/dL Lactic Acid (0.4-2.0) mmol/L Calcium (8.5-10.1) mg/dL Total Bilirubin (0.2-1.0) mg/dL Direct Bilirubin (0.0-0.2) mg/dL Indirect Bilirubin (0.0-0.8) mg/dL AST (15-37) U/L ALT (10-53) U/L Alkaline Phosphatase (45-117) U/L Lactate Dehydrogenase 585 H (84-246) U/L Total Protein (6.4-8.2) g/dL Albumin (3.4-5.0) g/dL Urine Color Yellow (Yellw/Straw) Urine Clarity Clear (Clear) Urine pH 6.0 (5.0-8.5) Ur Specific [place] 1.015 (1.002-1.035) Urine Protein 100 H (Neg-Trace) mg/dL Urine Glucose (UA) Negative (Negative) mg/dL Urine Ketones Negative (Negative) mg/dL Urine Occult Blood Moderate H (Negative) Urine Nitrate Negative (Negative) Urine Bilirubin Negative (Negative) Urine Urobilinogen 0.2 (Less than 2) mg/dL Ur Leukocyte Esterase Negative (Negative) Urine WBC 0-5 (0-5) /hpf Urine WBC Clumps Rare H (None) Ur Squamous Epith Cells Greater than 10 H (0-5) /hpf Urine Bacteria Moderate H (None) /hpf Ur Microscopic Review Microscopic reviewed 02/05/18 02/05/18 02/05/18 Range/Units 05:30 05:30 05:30 CBC w Diff WBC (4.0-11.0) th/mm3 Corrected WBC (4.0-11.0) th/mm3 RBC (4.00-5.30) mil/mm3 Hgb (11.6-15.3) gm/dL Hct (35.0-46.0) % MCV (80.0-100.0) fL MCH (27.0-34.0) pg MCHC (32.0-36.0) % RDW (11.6-17.2) % Plt Count (150-450) th/mm3 MPV (7.0-11.0) fL Neut % (Auto) (16.0-70.0) % Lymph % (Auto) (9.0-44.0) % [place] % (Auto) (0.0-8.0) % Eos % (Auto) (0.0-4.0) % Baso % (Auto) (0.0-2.0) % Neut # (Auto) (1.8-7.7) th/mm3 Lymph # (Auto) (1.0-4.8) th/mm3 [place] # (Auto) (0.0-0.9) th/mm3 Eos # (Auto) (0.0-0.4) th/mm3 Baso # (Auto) (0.0-0.2) th/mm3 WBC Differential Seg Neuts % (Manual) (16-70) % Band Neuts % (Manual) (0-6) % Lymphocytes % (Manual) (9-44) % Monocytes % (Manual) (0-8) % Eosinophils % (Manual) (0-4) % Basophils % (Manual) (0-2) % Abs Neuts (Manual) (1.8-7.7) th/mm3 Nucleated RBCs/100 WBC (0-0) /100 WBC Differential Comment Platelet Estimate (Normal) Platelet Morphology (Normal) Dimorphic RBCs (None) Polychromasia (0.0-1.9) % Basophilic Stippling (None) Sickle Cells (None) Target Cells (None) Tear Drop Cells (None) Ovalocytes (None) Rouleaux (None) Retic Count 12.9 H (0.4-3.0) % Absolute Retic 264.8 H (20.0-150.0) mil/L Sodium 144 (136-145) meq/L Potassium 4.2 (3.5-5.1) meq/L Chloride 109 H (98-107) meq/L Carbon Dioxide 28.1 (21.0-32.0) meq/L Anion Gap 7 (5-15) meq/L BUN 6 L (7-18) mg/dL Creatinine 0.82 (0.50-1.00) mg/dL Estimated GFR Greater than 89 (>89) mL/min Random Glucose 99 (74-106) mg/dL Lactic Acid (0.4-2.0) mmol/L Calcium 8.0 L (8.5-10.1) mg/dL Total Bilirubin (0.2-1.0) mg/dL Direct Bilirubin (0.0-0.2) mg/dL Indirect Bilirubin (0.0-0.8) mg/dL AST (15-37) U/L ALT (10-53) U/L Alkaline Phosphatase (45-117) U/L Lactate Dehydrogenase 625 H (84-246) U/L Total Protein (6.4-8.2) g/dL Albumin (3.4-5.0) g/dL Urine Color (Yellw/Straw) Urine Clarity (Clear) Urine pH (5.0-8.5) Ur Specific [place] (1.002-1.035) Urine Protein (Neg-Trace) mg/dL Urine Glucose (UA) (Negative) mg/dL Urine Ketones (Negative) mg/dL Urine Occult Blood (Negative) Urine Nitrate (Negative) Urine Bilirubin (Negative) Urine Urobilinogen (Less than 2) mg/dL Ur Leukocyte Esterase (Negative) Urine WBC (0-5) /hpf Urine WBC Clumps (None) Ur Squamous Epith Cells (0-5) /hpf Urine Bacteria (None) /hpf Ur Microscopic Review 02/05/18 02/06/18 02/06/18 Range/Units 05:30 06:49 06:49 CBC w Diff Slide review pending WBC 15.1 H (4.0-11.0) th/mm3 Corrected WBC 13.7 H (4.0-11.0) th/mm3 RBC 2.42 L (4.00-5.30) mil/mm3 Hgb 8.0 L (11.6-15.3) gm/dL Hct 22.5 L (35.0-46.0) % MCV 93.0 (80.0-100.0) fL MCH 33.2 (27.0-34.0) pg MCHC 35.7 (32.0-36.0) % RDW 28.0 H (11.6-17.2) % Plt Count 297 (150-450) th/mm3 MPV 9.3 (7.0-11.0) fL Neut % (Auto) 51.3 (16.0-70.0) % Lymph % (Auto) 30.7 (9.0-44.0) % [place] % (Auto) 6.3 (0.0-8.0) % Eos % (Auto) 10.7 H (0.0-4.0) % Baso % (Auto) 1.0 (0.0-2.0) % Neut # (Auto) 7.8 H (1.8-7.7) th/mm3 Lymph # (Auto) 4.6 (1.0-4.8) th/mm3 [place] # (Auto) 0.9 (0.0-0.9) th/mm3 Eos # (Auto) 1.6 H (0.0-0.4) th/mm3 Baso # (Auto) 0.2 (0.0-0.2) th/mm3 WBC Differential Manual diff final Seg Neuts % (Manual) 57 (16-70) % Band Neuts % (Manual) (0-6) % Lymphocytes % (Manual) 34 (9-44) % Monocytes % (Manual) 2 (0-8) % Eosinophils % (Manual) 7 H (0-4) % Basophils % (Manual) (0-2) % Abs Neuts (Manual) 7.8 H (1.8-7.7) th/mm3 Nucleated RBCs/100 WBC 10 H (0-0) /100 WBC Differential Comment . Platelet Estimate (Normal) Platelet Morphology (Normal) Dimorphic RBCs Present H (None) Polychromasia (0.0-1.9) % Basophilic Stippling (None) Sickle Cells 2+ H (None) Target Cells (None) Tear Drop Cells (None) Ovalocytes (None) Rouleaux (None) Retic Count 13.4 H (0.4-3.0) % Absolute Retic 316.0 H (20.0-150.0) mil/L Sodium (136-145) meq/L Potassium (3.5-5.1) meq/L Chloride (98-107) meq/L Carbon Dioxide (21.0-32.0) meq/L Anion Gap (5-15) meq/L BUN (7-18) mg/dL Creatinine (0.50-1.00) mg/dL Estimated GFR (>89) mL/min Random Glucose (74-106) mg/dL Lactic Acid (0.4-2.0) mmol/L Calcium (8.5-10.1) mg/dL Total Bilirubin 1.6 H (0.2-1.0) mg/dL Direct Bilirubin 0.4 H (0.0-0.2) mg/dL Indirect Bilirubin 1.2 H (0.0-0.8) mg/dL AST 59 H (15-37) U/L ALT 30 (10-53) U/L Alkaline Phosphatase 106 (45-117) U/L Lactate Dehydrogenase (84-246) U/L Total Protein 7.1 (6.4-8.2) g/dL Albumin 3.1 L (3.4-5.0) g/dL Urine Color (Yellw/Straw) Urine Clarity (Clear) Urine pH (5.0-8.5) Ur Specific [place] (1.002-1.035) Urine Protein (Neg-Trace) mg/dL Urine Glucose (UA) (Negative) mg/dL Urine Ketones (Negative) mg/dL Urine Occult Blood (Negative) Urine Nitrate (Negative) Urine Bilirubin (Negative) Urine Urobilinogen (Less than 2) mg/dL Ur Leukocyte Esterase (Negative) Urine WBC (0-5) /hpf Urine WBC Clumps (None) Ur Squamous Epith Cells (0-5) /hpf Urine Bacteria (None) /hpf Ur Microscopic Review 02/06/18 Range/Units 06:49 CBC w Diff WBC (4.0-11.0) th/mm3 Corrected WBC (4.0-11.0) th/mm3 RBC (4.00-5.30) mil/mm3 Hgb (11.6-15.3) gm/dL Hct (35.0-46.0) % MCV (80.0-100.0) fL MCH (27.0-34.0) pg MCHC (32.0-36.0) % RDW (11.6-17.2) % Plt Count (150-450) th/mm3 MPV (7.0-11.0) fL Neut % (Auto) (16.0-70.0) % Lymph % (Auto) (9.0-44.0) % [place] % (Auto) (0.0-8.0) % Eos % (Auto) (0.0-4.0) % Baso % (Auto) (0.0-2.0) % Neut # (Auto) (1.8-7.7) th/mm3 Lymph # (Auto) (1.0-4.8) th/mm3 [place] # (Auto) (0.0-0.9) th/mm3 Eos # (Auto) (0.0-0.4) th/mm3 Baso # (Auto) (0.0-0.2) th/mm3 WBC Differential Seg Neuts % (Manual) (16-70) % Band Neuts % (Manual) (0-6) % Lymphocytes % (Manual) (9-44) % Monocytes % (Manual) (0-8) % Eosinophils % (Manual) (0-4) % Basophils % (Manual) (0-2) % Abs Neuts (Manual) (1.8-7.7) th/mm3 Nucleated RBCs/100 WBC (0-0) /100 WBC Differential Comment Platelet Estimate (Normal) Platelet Morphology (Normal) Dimorphic RBCs (None) Polychromasia (0.0-1.9) % Basophilic Stippling (None) Sickle Cells (None) Target Cells (None) Tear Drop Cells (None) Ovalocytes (None) Rouleaux (None) Retic Count (0.4-3.0) % Absolute Retic (20.0-150.0) mil/L Sodium 139 (136-145) meq/L Potassium 3.9 (3.5-5.1) meq/L Chloride 106 (98-107) meq/L Carbon Dioxide 28.5 (21.0-32.0) meq/L Anion Gap 5 (5-15) meq/L BUN 9 (7-18) mg/dL Creatinine 0.91 (0.50-1.00) mg/dL Estimated GFR 85 L (>89) mL/min Random Glucose 89 (74-106) mg/dL Lactic Acid (0.4-2.0) mmol/L Calcium 8.7 (8.5-10.1) mg/dL Total Bilirubin 1.4 H (0.2-1.0) mg/dL Direct Bilirubin (0.0-0.2) mg/dL Indirect Bilirubin (0.0-0.8) mg/dL AST 56 H (15-37) U/L ALT 34 (10-53) U/L Alkaline Phosphatase 121 H (45-117) U/L Lactate Dehydrogenase (84-246) U/L Total Protein 7.9 D (6.4-8.2) g/dL Albumin 3.4 (3.4-5.0) g/dL Urine Color (Yellw/Straw) Urine Clarity (Clear) Urine pH (5.0-8.5) Ur Specific [place] (1.002-1.035) Urine Protein (Neg-Trace) mg/dL Urine Glucose (UA) (Negative) mg/dL Urine Ketones (Negative) mg/dL Urine Occult Blood (Negative) Urine Nitrate (Negative) Urine Bilirubin (Negative) Urine Urobilinogen (Less than 2) mg/dL Ur Leukocyte Esterase (Negative) Urine WBC (0-5) /hpf Urine WBC Clumps (None) Ur Squamous Epith Cells (0-5) /hpf Urine Bacteria (None) /hpf Ur Microscopic Review Imaging Data Radiologist's impression: Chest X-Ray 02/04/18 03:33 CONCLUSION: No acute cardiopulmonary disease. Discharge Plan Discharge Disposition Patient Disposition: 01 Discharge Home Discharge Condition Condition: Stable Discharge Order Discharge Orders: Discharge Order (Routine); Ordered 02/06/18 Ordered By: Sathya Conklin Discharge Details Anticipated Discharge Date: 02/06/18 Physicians Team ED Provider: Bernard Perkins Primary Care Provider: Deveras,Lilo A Attending Provider: Mandy Villagran Other Providers: Humanlalo,Humana Status ED Status: Left Department Discharge Information Discharge Date/Time: 02/04/18 07:45
[2018-02-04 04:55] LABS: Mean Corpuscular HGB Conc 37.6 % (32.0-36.0)
[2018-02-04 04:57] LABS: Hematocrit 20.2 % (35.0-46.0)
[2018-02-04] MEDS ORDERED: Bisacodyl 10 MG Supp RECTAL PRN (05:12)
[2018-02-04] MEDS ORDERED: HYDROmorphone PF Inj 1 MG/ML Ampul IV.PUSH PRN ×2 (05:14)
[2018-02-04] MEDS ORDERED: Naloxone Inj 0.4 MG/ML Vial IV.PUSH PRN (05:14)
[2018-02-04 06:17] LABS: Corrected White Blood Count 15.2 th/mm3 (4.0-11.0); Eosinophils 6 % (0-4); Lymphocytes 43 % (9-44); Monocytes 8 % (0-8); Tallied Nucleated RBC 5 (0-0)
[2018-02-04 06:18] LABS: Dimorphic RBC Present; Ovalocytes 2+; Sickle Cells 3+
[2018-02-04 06:19] LABS: Target Cells 1+; Tear Drop Cells 1+
[2018-02-04 06:20] LABS: Platelet Estimate Normal (Normal); Platelet Morphology Normal (Normal)
[2018-02-04] MEDS: Sod Chloride 0.9% Inj 1,000 ML IV.CONT SCH ×2 (06:25→16:17)
[2018-02-04] MEDS: HYDROmorphone PF Inj 1 MG/ML Ampul IV.PUSH PRN ×3 (07:18→20:44)
[2018-02-04] MEDS ORDERED: DEFERASIROX 180 MG PO SCH (09:00)
[2018-02-04] MEDS: amLODIPine 5 MG Tablet PO SCH (09:06)
--- NOTE | 2018-02-04 09:32 | P.HPIM ---
History of Present Illness Primary Care Physician: Lilo Shea MD History of Present Illness: Patient is a 37 yo F with PMH of SCA who came to the ED with c/o severe pain. She was in our ER she was treated and then discharged at that time. H&H was . Now she is coming back with continued worsening pain in her femurs, lower back chest sternum area. Her labs show drop in HCT to 20 hgb=7.6 . Her international marketing coordinator is Dr. Shea. Patient is return visit within 24-hour. Repeat visit for his severe pain ischemic crisis-like pain in her similar areas of pain. She is not short of breath she does not appear to be severely jaundiced but her pain is not being managed with her outpatient medication. Inpatient Certification: I certify that the inpatient services were ordered in accordance with Medicare regulations governing the order. This includes certification that hospital inpatient services are reasonable and necessary and in the case of services not specified as inpatient-only under 42 CFR 419.22(n), that they are appropriately provided as inpatient services in accordance to with the 2-midnight benchmark under 43 CFR 412.3(e) Estimated Total Length of Stay (Days): 2 Plans for Post Hospital Care: Home Review of Systems All other systems reviewed negative except as stated in HPI PMFSH - History History Provided By: Patient - Medical History Medical History: Medical History (Last Reviewed 02/04/18 @ 09:30 by Justine Lopez MD) H/O sickle cell anemia (Acute) Avascular necrosis CKD (chronic kidney disease) DVT (deep venous thrombosis) Sepsis Thrombocytopenia - Surgical History Surgical History: Surgical History (Last Reviewed 02/04/18 @ 09:30 by Justine Lopez MD) History of cholecystectomy (Acute) History of hip replacement (Acute) Previous back surgery (Acute) History of appendectomy - Family History Family History: Family History (Last Reviewed 02/04/18 @ 09:30 by Justine Lopez MD) Other Hypertension - Social History I have reviewed the patient's Social History: Yes - Tobacco History Second Hand Smoke Exposure: No Smoking Status: Never smoker - Alcohol History How Often Do You Have a Drink Containing Alcohol: Never - Substance Use History Substance History: No History of Abuse - Travel History Recent Travel in the [place] Within the Last 8 Weeks: No Recent Travel Out of the Country Within the Last 8 Weeks: No - Immunization History Tetanus Immunization: Unsure Medications and Allergies Active Medications: Active Medications Al Hydroxide/Mg Hydroxide (Milk Of Magnesia Liq) 30 ml PO Q12H PRN PRN Reason: Mild Constipation Amlodipine Besylate (Norvasc) 5 mg PO DAILY [facility] Last Admin: 02/04/18 09:06 Dose: 5 mg Aspirin (Aspirin Chew) 81 mg PO DAILY [facility] Last Admin: 02/04/18 09:06 Dose: 81 mg Bisacodyl (Dulcolax Supp) 10 mg RECTAL DAILY PRN PRN Reason: SEVERE CONSITIPATION Hydromorphone HCl (Dilaudid) 1 mg PO Q4H PRN PRN Reason: PAIN SCALE 3 TO 5 Hydromorphone HCl (Dilaudid Pf Inj) 1 mg IV.PUSH Q3H PRN PRN Reason: PAIN 6-10;IF UNABLE TO TAKE PO Last Admin: 02/04/18 07:18 Dose: 1 mg Hydromorphone HCl (Dilaudid Pf Inj) 1 mg IV.PUSH Q3H PRN PRN Reason: BREAKTHROUGH PAIN Hydromorphone HCl (Dilaudid Pf Inj) 0.5 mg IV.PUSH Q3H PRN PRN Reason: PAIN 3-5; IF UABLE TO TAKE PO Hydroxyurea (Hydrea) 500 mg PO TID [facility] Sodium Chloride (Ns Inj) 1,000 mls @ 100 mls/hr IV.CONT .Q10H [facility] Last Admin: 02/04/18 06:25 Dose: 100 mls/hr Lactulose (Lactulose Liq) 30 ml PO DAILY PRN PRN Reason: SEVERE CONSITIPATION Naloxone HCl (Narcan Inj) 0.4 mg IV.PUSH UNSCH PRN PRN Reason: SEE LABEL COMMENTS Deferasirox [Jadenu] (180 Mg) 0 each PO DAILY [facility] Sennosides (Senokot) 17.2 mg PO Q12H PRN PRN Reason: Moderate Constipation Allergies Allergy/AdvReac Type Severity Reaction Status Date / Time ketorolac Allergy Severe Itching Verified 02/03/18 07:00 morphine Allergy Mild Swelling Verified 02/03/18 07:00 ibuprofen AdvReac Severe Urinary Verified 02/03/18 07:00 Freq (Inc/Dec) methadone AdvReac Severe DEPRESSION Verified 02/03/18 07:00 Home Medications Medication Instructions Recorded Confirmed Type deferasirox [Jadenu] 180 mg PO DAILY 10/17/17 02/04/18 History folic acid 1 mg PO DAILY 10/17/17 02/04/18 History hydromorphone [Dilaudid] 1 mg PO Q6HR PRN 10/17/17 02/04/18 History hydroxyurea 500 mg PO TID 10/17/17 02/04/18 History amlodipine 5 mg PO DAILY 01/09/18 02/04/18 History aspirin 81 mg PO DAILY 01/09/18 02/04/18 History Exam Vital signs: Vital Signs 02/04/18 03:26 02/04/18 04:28 02/04/18 05:14 Temperature 98.9 F Pulse Rate 97 H 90 Respiratory Rate 16 15 Blood Pressure 140/83 140/80 Pulse Oximetry 94 L 98 96 02/04/18 06:48 Temperature Pulse Rate 76 Respiratory Rate 15 Blood Pressure 140/90 Pulse Oximetry 97 Intake & Output 02/03/18 02/04/18 02/04/18 18:59 06:59 18:59 Intake Total 1000 / 1000 Balance 1000 / 1000 Weight 75 kg Intake: IV 1000 / 1000 NS Inj 1,000 ML @ Wide Open IV. 1000 / 1000 SIG BOLUS ONE Rx#:[id number] Narrative: GENERAL: Pleasant 37 yo F, appears in nad. SKIN: Warm and dry. HEAD: Atraumatic. Normocephalic. EYES: Pupils equal and round. No scleral icterus. No injection or drainage. ENT: No nasal bleeding or discharge. Mucous membranes pink and moist. NECK: Trachea midline. No JVD. CARDIOVASCULAR: Regular rate and rhythm. RESPIRATORY: No accessory muscle use. Clear to auscultation. Breath sounds equal bilaterally. GASTROINTESTINAL: Abdomen soft, non-tender, nondistended. Hepatic and splenic margins not palpable. MUSCULOSKELETAL: Extremities without clubbing, cyanosis, or edema. No obvious deformities. NEUROLOGICAL: Awake and alert. No obvious cranial nerve deficits. Motor grossly within normal limits. Five out of 5 muscle strength in the arms and legs. Normal speech. PSYCHIATRIC: Appropriate mood and affect; insight and judgment normal. Results - Labs CBC & Chem 7: 02/04/18 03:55 02/04/18 03:55 Labs: Short CBC 02/04/18 Range/Units 03:55 WBC 16.0 H (4.0-11.0) th/mm3 Hgb 7.6 L (11.6-15.3) gm/dL Hct 20.2 L* (35.0-46.0) % Plt Count 287 (150-450) th/mm3 BMP 02/04/18 03:55 Sodium 141 Potassium 3.8 Chloride 108 H Carbon Dioxide 25.6 BUN 9 Creatinine 1.00 Calcium 8.2 L Liver Function 02/04/18 Range/Units 03:55 Total Bilirubin 2.3 H (0.2-1.0) mg/dL AST 59 H (15-37) U/L ALT 25 (10-53) U/L Alkaline Phosphatase 103 (45-117) U/L Albumin 3.3 L (3.4-5.0) g/dL Urine 02/04/18 Range/Units 04:35 Urine Color Yellow (Yellw/Straw) Urine Clarity Clear (Clear) Urine pH 6.0 (5.0-8.5) Ur Specific Central 1.015 (1.002-1.035) Urine Protein 100 H (Neg-Trace) mg/dL Urine Glucose (UA) Negative (Negative) mg/dL - Imaging Impressions Chest X-Ray 02/04/18 03:33 CONCLUSION: No acute cardiopulmonary disease. Caprini VTE Risk Assessment Caprini VTE Risk Assessment: No/Low Risk (score <= 1) Caprini Risk Assessment Model: Point Value = 1 Point Value = 2 Point Value = 3 Point Value = 5 Age 41-60 Minor surgery BMI > 25 kg/m2 Swollen legs Varicose veins or History of unexplained or recurrent spontaneous Oral contraceptives or hormone replacement Sepsis (< 1 month) Serious lung disease, including pneumonia (< 1 month) Abnormal pulmonary function Acute myocardial infarction Congestive heart failure (< 1 month) History of inflammatory bowel disease Medical patient at bed rest Age 61-74 Arthroscopic surgery Major open surgery (> 45 min) Laparoscopic surgery (> 45 min) Malignancy Confined to bed (> 72 hours) Immobilizing plaster cast Central venous access Age >= 75 History of VTE Family history of VTE Factor V Leiden Prothrombin [id number] Lupus anticoagulant Anticardiolipin antibodies Elevated serum homocysteine Heparin-induced thrombocytopenia Other congenital or acquired thrombophilia Stroke (< 1 month) Elective arthroplasty Hip, pelvis, or leg fracture Acute spinal cord injury (< 1 month) Prophylaxis Regimen: Total Risk Factor Score Risk Level Prophylaxis Regimen 0-1 Low Early ambulation 2 Moderate Order ONE of the following: *Sequential Compression Device (SCD) *Heparin 5000 units SQ BID 3-4 Higher Order ONE of the following medications: *Heparin 5000 units SQ TID *Enoxaparin/Lovenox 40 mg SQ daily (WT < 150 kg, CrCl > 30 mL/min) *Enoxaparin/Lovenox 30 mg SQ daily (WT < 150 kg, CrCl > 10-29 mL/min) *Enoxaparin/Lovenox 30 mg SQ BID (WT < 150 kg, CrCl > 30 mL/min) AND/OR *Sequential Compression Device (SCD) 5 or more Highest Order ONE of the following medications: *Heparin 5000 units SQ TID (Preferred with Epidurals) *Enoxaparin/Lovenox 40 mg SQ daily (WT < 150 kg, CrCl > 30 mL/min) *Enoxaparin/Lovenox 30 mg SQ daily (WT < 150 kg, CrCl > 10-29 mL/min) *Enoxaparin/Lovenox 30 mg SQ BID (WT < 150 kg, CrCl > 30 mL/min) AND *Sequential Compression Device (SCD) Assessment and Plan - Plan 37 yo F with h/o SCA Sickle cell crisis Intractable pain HTN CXR reviewed and no acute findings. Start IVF Pain meds IV and PO as per pain scale Antiemetics as need Continue home meds as need Check LDH and retic count Follows with Dr Shea as OP ( hem/onc) . Consider consulting her hem onc if doesn't improves Monitor H/H. HGB at 7.6 . DVT ppx scd/teds. Ambulation Discussed Condition With: patient, nurse H&P: Quality - VTE Deep Vein Thrombosis/Pulmonary Embolism Present on Admission: Yes
[2018-02-04 10:29] LABS: Reticulocyte Percent 9.1 % (0.4-3.0)
[2018-02-04] MEDS: Hydroxyurea 500 MG Capsule PO SCH ×3 (10:40→18:05)
[2018-02-05] MEDS: HYDROmorphone PF Inj 1 MG/ML Ampul IV.PUSH PRN ×4 (00:48→21:19)
[2018-02-05] MEDS: Sod Chloride 0.9% Inj 1,000 ML IV.CONT SCH ×3 (00:49→21:18)
[2018-02-05 06:24] LABS: Hemoglobin 7.4 gm/dL (11.6-15.3); Mean Corpuscular Hemoglobin 34.5 pg (27.0-34.0); Mean Corpuscular Volume 92.9 fL (80.0-100.0); Mean Platelet Volume 9.2 fL (7.0-11.0); Platelet Count 270 th/mm3 (150-450); Red Blood Count 2.15 mil/mm3 (4.00-5.30); Red Cell Distribution Width 26.2 % (11.6-17.2); White Blood Count 14.8 th/mm3 (4.0-11.0)
[2018-02-05 06:30] LABS: Chloride 109 meq/L (98-107); Potassium 4.2 meq/L (3.5-5.1); Sodium 144 meq/L (136-145)
[2018-02-05 06:32] LABS: Anion Gap 7 meq/L (5-15); Blood Urea Nitrogen 6 mg/dL (7-18); Carbon Dioxide 28.1 meq/L (21.0-32.0); Glucose,Random 99 mg/dL (74-106)
[2018-02-05 06:36] LABS: Glomerular Filtration Rate Greater Than 89 mL/min (>89)
[2018-02-05 06:43] LABS: Mean Corpuscular HGB Conc 37.2 % (32.0-36.0)
[2018-02-05 07:14] LABS: Eosinophils 9 % (0-4); Lymphocytes 37 % (9-44); Monocytes 7 % (0-8); Tallied Nucleated RBC 14 (0-0)
[2018-02-05 07:16] LABS: Ovalocytes 1+; Platelet Estimate Normal (Normal); Rouleaux Present; Sickle Cells 3+; Target Cells 1+
[2018-02-05 07:17] LABS: Platelet Morphology Normal (Normal)
[2018-02-05 07:50] LABS: Albumin 3.1 g/dL (3.4-5.0)
[2018-02-05 07:52] LABS: Total Protein 7.1 g/dL (6.4-8.2)
[2018-02-05 08:37] LABS: Reticulocyte Percent 12.9 % (0.4-3.0)
[2018-02-05] MEDS: amLODIPine 5 MG Tablet PO SCH (09:33)
--- NOTE | 2018-02-05 09:37 | P.PNIM ---
Subjective Interval history: 37-year-old female is well-known to the hospital for recurrent sickle cell crisis. Patient laying in bed looks to be completely comfortable. Denies any new complaints. States that her pain does come and go. But relatively controlled with medication. Vital signs are stable. Patient remains afebrile. Physical Exam Vital signs: Vital Signs 02/04/18 12:00 02/04/18 16:00 02/04/18 20:00 Temperature 97.8 F 98.2 F 98.5 F Pulse Rate 92 H 84 92 H Respiratory Rate 30 H 23 22 Blood Pressure 119/71 128/83 117/81 Pulse Oximetry 100 100 97 02/05/18 00:00 02/05/18 04:00 02/05/18 07:30 Temperature 98.4 F 98.3 F Pulse Rate 96 H 78 Respiratory Rate 22 20 Blood Pressure 108/63 122/75 Pulse Oximetry 94 L 96 96 Intake & Output 02/04/18 02/05/18 02/05/18 18:59 06:59 18:59 Intake Total 1720 / 1720 2023 Balance 1720 / 1720 2023 Weight 69 kg Intake: IV 1000 / 1000 1664 / 1664 NS Inj 1,000 ML @ 100 mls/hr IV 1000 / 1000 1664 / 1664 .CONT .Q10H [facility] Rx#:[id number] Oral 720 / 720 360 / 360 Other: # Voids 5 4 # Bowel Movements 0 Narrative: GENERAL: Well-developed, well-nourished, in no acute distress. alert and orientated HEENT: Head is normocephalic without any lesions or masses noted. Facial features are symmetric. Eyes: Extraocular muscles are intact. Conjunctivae were clear. NECK: Supple without any masses. Trachea midline no deviation. No JVD, CARDIAC: Regular rhythm, regular rate. S1/S2 are heard. No murmurs gallops or rubs. LUNGS: Clear to auscultation bilaterally. No wheeze, rhonchi or rales. No use of accessory muscles on inspiration or expiration. ABDOMEN: Soft, nontender. Nondistended. Bowel sounds heard in all 4 quadrants. No organomegaly or masses. Negative rebound, negative guarding EXTREMITIES: No edema, pulses are equal bilaterally. No cyanosis or clubbing NEUROLOGY: Mood and affect appear appropriate. Cranial nerves II through XII grossly intact. Moving all extremities, speech is clear Results - Labs CBC & Chem 7: 02/05/18 05:30 02/05/18 05:30 Laboratory Results - last 24 hr 02/04/18 02/04/18 02/05/18 03:55 03:55 05:30 CBC w Diff Slide review pending WBC 14.8 H Corrected WBC 13.0 H RBC 2.15 L Hgb 7.4 L Hct 20.0 L* MCV 92.9 MCH 34.5 H MCHC 37.2 H RDW 26.2 H Plt Count 270 MPV 9.2 WBC Differential Manual diff final Seg Neuts % (Manual) 41 Band Neuts % (Manual) 4 Lymphocytes % (Manual) 37 Monocytes % (Manual) 7 Eosinophils % (Manual) 9 H Basophils % (Manual) 2 Abs Neuts (Manual) 5.9 Nucleated RBCs/100 WBC 14 H Differential Comment . Platelet Estimate Normal Platelet Morphology Normal Basophilic Stippling Faint H Sickle Cells 3+ H Target Cells 1+ H Ovalocytes 1+ H Rouleaux Present H Retic Count 9.1 H Absolute Retic 200.8 H Sodium Potassium Chloride Carbon Dioxide Anion Gap BUN Creatinine Estimated GFR Random Glucose Calcium Total Bilirubin Direct Bilirubin Indirect Bilirubin AST ALT Alkaline Phosphatase Lactate Dehydrogenase 585 H Total Protein Albumin 02/05/18 02/05/18 02/05/18 05:30 05:30 05:30 CBC w Diff WBC Corrected WBC RBC Hgb Hct MCV MCH MCHC RDW Plt Count MPV WBC Differential Seg Neuts % (Manual) Band Neuts % (Manual) Lymphocytes % (Manual) Monocytes % (Manual) Eosinophils % (Manual) Basophils % (Manual) Abs Neuts (Manual) Nucleated RBCs/100 WBC Differential Comment Platelet Estimate Platelet Morphology Basophilic Stippling Sickle Cells Target Cells Ovalocytes Rouleaux Retic Count 12.9 H Absolute Retic 264.8 H Sodium 144 Potassium 4.2 Chloride 109 H Carbon Dioxide 28.1 Anion Gap 7 BUN 6 L Creatinine 0.82 Estimated GFR Greater than 89 Random Glucose 99 Calcium 8.0 L Total Bilirubin Direct Bilirubin Indirect Bilirubin AST ALT Alkaline Phosphatase Lactate Dehydrogenase 625 H Total Protein Albumin 02/05/18 05:30 CBC w Diff WBC Corrected WBC RBC Hgb Hct MCV MCH MCHC RDW Plt Count MPV WBC Differential Seg Neuts % (Manual) Band Neuts % (Manual) Lymphocytes % (Manual) Monocytes % (Manual) Eosinophils % (Manual) Basophils % (Manual) Abs Neuts (Manual) Nucleated RBCs/100 WBC Differential Comment Platelet Estimate Platelet Morphology Basophilic Stippling Sickle Cells Target Cells Ovalocytes Rouleaux Retic Count Absolute Retic Sodium Potassium Chloride Carbon Dioxide Anion Gap BUN Creatinine Estimated GFR Random Glucose Calcium Total Bilirubin 1.6 H Direct Bilirubin 0.4 H Indirect Bilirubin 1.2 H AST 59 H ALT 30 Alkaline Phosphatase 106 Lactate Dehydrogenase Total Protein 7.1 Albumin 3.1 L Assessment and Plan - Plan Sickle cell crisis -Patient does have elevated retic, LDH, bilirubin -Hemoglobin is maintaining stability, transfuse if hemoglobin below 7.0 -Continue IV fluids -Continue to monitor retic, LDH, bilirubin -Patient's home medications were continued -Dilaudid 0.5 mg IV every 4 hours as needed for breakthrough pain Hypertension -Blood pressure stable -Continue home medications DVT prevention -Sequential compression devices Discharge Planning: Anticipate discharge within 24-48 hours, depending on patient's response to treatment
[2018-02-05] MEDS ORDERED: diphenhydrAMINE 2%/Zinc Cream 30 GM Tube TOPICAL PRN (09:38)
[2018-02-05] MEDS: Hydroxyurea 500 MG Capsule PO SCH ×3 (09:38→18:45)
[2018-02-05] MEDS: Folic Acid 1 MG Tablet PO SCH (10:08)
[2018-02-06] MEDS: Sod Chloride 0.9% Inj 1,000 ML IV.CONT SCH (06:45)
[2018-02-06 07:17] LABS: Baso # (Auto) 0.2 th/mm3 (0.0-0.2); Eos # (Auto) 1.6 th/mm3 (0.0-0.4); Eos % (Auto) 10.7 % (0.0-4.0); Hematocrit 22.5 % (35.0-46.0); Lymph # (Auto) 4.6 th/mm3 (1.0-4.8); Lymph % (Auto) 30.7 % (9.0-44.0); Mean Corpuscular HGB Conc 35.7 % (32.0-36.0); Mean Corpuscular Hemoglobin 33.2 pg (27.0-34.0); Mean Platelet Volume 9.3 fL (7.0-11.0); Mono # (Auto) 0.9 th/mm3 (0.0-0.9); Mono % (Auto) 6.3 % (0.0-8.0); Neut # (Auto) 7.8 th/mm3 (1.8-7.7); Neut % (Auto) 51.3 % (16.0-70.0); Platelet Count 297 th/mm3 (150-450); Red Blood Count 2.42 mil/mm3 (4.00-5.30); White Blood Count 15.1 th/mm3 (4.0-11.0)
[2018-02-06 07:26] LABS: Chloride 106 meq/L (98-107); Potassium 3.9 meq/L (3.5-5.1); Sodium 139 meq/L (136-145)
[2018-02-06 07:29] LABS: Calcium 8.7 mg/dL (8.5-10.1)
[2018-02-06 07:30] LABS: Albumin 3.4 g/dL (3.4-5.0); Anion Gap 5 meq/L (5-15); Blood Urea Nitrogen 9 mg/dL (7-18); Carbon Dioxide 28.5 meq/L (21.0-32.0); Glucose,Random 89 mg/dL (74-106)
[2018-02-06 07:33] LABS: Alanine Aminotransferase 34 U/L (10-53); Aspartate Aminotransferase 56 U/L (15-37); Glomerular Filtration Rate 85 mL/min (>89)
[2018-02-06 07:35] LABS: Total Protein 7.9 g/dL (6.4-8.2)
[2018-02-06 07:36] LABS: Alkaline Phosphatase 121 U/L (45-117)
[2018-02-06] MEDS: HYDROmorphone PF Inj 1 MG/ML Ampul IV.PUSH PRN (07:37)
[2018-02-06 08:03] LABS: Corrected White Blood Count 13.7 th/mm3 (4.0-11.0); Eosinophils 7 % (0-4); Lymphocytes 34 % (9-44); Monocytes 2 % (0-8); Tallied Nucleated RBC 10 (0-0)
[2018-02-06 08:05] LABS: Dimorphic RBC Present
[2018-02-06 08:06] LABS: Sickle Cells 2+
[2018-02-06 08:53] LABS: Reticulocyte Percent 13.4 % (0.4-3.0)
[2018-02-06] MEDS: Hydroxyurea 500 MG Capsule PO SCH (09:07)
[2018-02-06] MEDS: Folic Acid 1 MG Tablet PO SCH (09:07)
[2018-02-06] MEDS: amLODIPine 5 MG Tablet PO SCH (09:07)
--- NOTE | 2018-02-06 11:16 | P.DS ---
Date of admission: 02/04/18 05:12 Primary care physician: Lilo Shea MD Attending physician on discharge: Mandy Villagran Anticipated date of discharge: 02/06/18 Brief History from admission: Patient is a 37 yo F with PMH of SCA who came to the ED with c/o severe pain. She was in our ER she was treated and then discharged at that time. H&H was . Now she is coming back with continued worsening pain in her femurs, lower back chest sternum area. Her labs show drop in HCT to 20 hgb=7.6 . Her farm appraiser is Dr. Shea. Patient is return visit within 24-hour. Repeat visit for his severe pain ischemic crisis-like pain in her similar areas of pain. She is not short of breath she does not appear to be severely jaundiced but her pain is not being managed with her outpatient medication. DS: Summary Hospital Course: 37-year-old female with known history of sickle cell anemia who is known to the hospital for recurrent admissions due to sickle cell crisis. Patient presented to the emergency department initially with sickle cell pain. Patient was given IV fluids and discharged home from the emergency department. However she did not improve so she came back to the hospital the same day, the patient had laboratory studies performed which did indicate findings indicative of sickle cell crisis. Patient was admitted to hospital with IV fluids, pain control, monitoring of her blood. Patient usually requires transfusions during her stay in the hospital, however his hemoglobin remained in the mid 7's and eventually after crisis is over went to 8.0. Laboratory studies indicate that sickle cell crisis was clinically improved. Patient was continued on home medication during his stay in the hospital. Upon evaluating patient she is feeling much better and is in agreement of going home. Patient clinically stable at this time. Plan discharge home. - Time Spent with Patient Total time spent providing and/or coordinating discharge services: Greater than 30 minutes - Quality: VTE Deep Vein Thrombosis/Pulmonary Embolism Present on Admission: Yes Exam Vital signs: Vital Signs 02/05/18 11:41 02/05/18 12:00 02/05/18 12:06 Temperature 98.6 F Pulse Rate 88 86 90 Respiratory Rate 11 L 16 13 Blood Pressure 141/91 H 144/95 H 136/83 Pulse Oximetry 99 02/05/18 13:00 02/05/18 14:00 02/05/18 15:00 Temperature Pulse Rate 84 88 86 Respiratory Rate 21 22 22 Blood Pressure Pulse Oximetry 02/05/18 16:00 02/05/18 16:26 02/05/18 19:10 Temperature Pulse Rate 90 98 H Respiratory Rate 17 33 H Blood Pressure 134/89 Pulse Oximetry 95 02/05/18 20:00 02/06/18 00:00 02/06/18 08:00 Temperature 99.5 F 97.0 F L 97.6 F Pulse Rate 83 95 H 88 Respiratory Rate 16 18 20 Blood Pressure 130/86 103/58 L 122/74 Pulse Oximetry 95 95 95 02/06/18 08:09 Temperature Pulse Rate Respiratory Rate Blood Pressure Pulse Oximetry 96 Intake & Output 02/05/18 02/06/18 02/06/18 18:59 06:59 18:59 Intake Total 836 / 836 1999 Balance 836 / 836 1999 Weight 69 kg Intake: IV 336 / 336 1999 NS Inj 1,000 ML @ 100 mls/hr IV 336 / 336 1999 .CONT .Q10H [facility] Rx#:[id number] Oral 500 / 500 Other: # Voids 2 Date of Last Bowel Movement 02/03/18 Narrative: GENERAL: Well-developed, well-nourished, in no acute distress. alert and orientated HEENT: Head is normocephalic without any lesions or masses noted. Facial features are symmetric. Eyes: Extraocular muscles are intact. Conjunctivae were clear. NECK: Supple without any masses. Trachea midline no deviation. No JVD, CARDIAC: Regular rhythm, regular rate. S1/S2 are heard. No murmurs gallops or rubs. LUNGS: Clear to auscultation bilaterally. No wheeze, rhonchi or rales. No use of accessory muscles on inspiration or expiration. ABDOMEN: Soft, nontender. Nondistended. Bowel sounds heard in all 4 quadrants. No organomegaly or masses. Negative rebound, negative guarding EXTREMITIES: No edema, pulses are equal bilaterally. No cyanosis or clubbing NEUROLOGY: Mood and affect appear appropriate. Cranial nerves II through XII grossly intact. Moving all extremities, speech is clear Results Procedures completed during hospitalization: none Labs on day of discharge: Labs from last 24 hours 02/06/18 02/06/18 02/06/18 06:49 06:49 06:49 CBC w Diff Slide review pending WBC 15.1 H Corrected WBC 13.7 H RBC 2.42 L Hgb 8.0 L Hct 22.5 L MCV 93.0 MCH 33.2 MCHC 35.7 RDW 28.0 H Plt Count 297 MPV 9.3 Neut % (Auto) 51.3 Lymph % (Auto) 30.7 [place] % (Auto) 6.3 Eos % (Auto) 10.7 H Baso % (Auto) 1.0 Neut # (Auto) 7.8 H Lymph # (Auto) 4.6 [place] # (Auto) 0.9 Eos # (Auto) 1.6 H Baso # (Auto) 0.2 WBC Differential Manual diff final Seg Neuts % (Manual) 57 Lymphocytes % (Manual) 34 Monocytes % (Manual) 2 Eosinophils % (Manual) 7 H Abs Neuts (Manual) 7.8 H Nucleated RBCs/100 WBC 10 H Differential Comment . Dimorphic RBCs Present H Sickle Cells 2+ H Retic Count 13.4 H Absolute Retic 316.0 H Sodium 139 Potassium 3.9 Chloride 106 Carbon Dioxide 28.5 Anion Gap 5 BUN 9 Creatinine 0.91 Estimated GFR 85 L Random Glucose 89 Calcium 8.7 Total Bilirubin 1.4 H AST 56 H ALT 34 Alkaline Phosphatase 121 H Total Protein 7.9 D Albumin 3.4 - Impressions ITS Impressions Chest X-Ray 02/04/18 03:33 CONCLUSION: No acute cardiopulmonary disease. Discharge Plan - Discharge Disposition Patient Disposition: 01 Discharge Home - Discharge Condition Condition: Stable - Discharge Order Discharge Orders: Discharge Order (Routine); Ordered 02/06/18 Ordered By: Sathya Conklin - Discharge Details Anticipated Discharge Date: 02/06/18 - Physicians Team Primary Care Provider: Lilo Shea Attending Provider: Mandy Villagran Other Providers: Jackelinea,[employer]
== END 2018-02-06 12:49 | disposition home or self-care (01) ==
LOC: PHED 02:56 → PHEDA 05:12 → PHICU 07:52 → PH3 02-05 20:10
PROVIDERS: ADMIT Hospitalist; ATTEND Hospitalist

== ENCOUNTER 2018-03-08 00:45 | Inpatient (IN) ==
[2018-03-08] MEDS ORDERED: HYDROmorphone PF Inj 2 MG/ML Vial IV.PUSH ONE ×2 (01:24→03:20)
[2018-03-08] MEDS: Sod Chloride 0.9% Inj 1,000 ML IV.SIG SCH ×2 (01:42→03:03)
[2018-03-08 01:46] LABS: Mean Corpuscular HGB Conc 34.6 % (32.0-36.0); Mean Corpuscular Hemoglobin 32.1 pg (27.0-34.0); Mean Platelet Volume 8.7 fL (7.0-11.0); Platelet Count 300 th/mm3 (150-450); Red Blood Count 2.06 mil/mm3 (4.00-5.30); Red Cell Distribution Width 28.1 % (11.6-17.2); White Blood Count 16.6 th/mm3 (4.0-11.0)
[2018-03-08 01:50] LABS: Hematocrit 19.2 % (35.0-46.0); Hemoglobin 6.6 gm/dL (11.6-15.3)
[2018-03-08 01:51] LABS: Chloride 109 meq/L (98-107); Potassium 3.7 meq/L (3.5-5.1); Sodium 141 meq/L (136-145)
[2018-03-08 01:55] LABS: Albumin 3.4 g/dL (3.4-5.0); Anion Gap 6 meq/L (5-15); Blood Urea Nitrogen 9 mg/dL (7-18); Calcium 8.2 mg/dL (8.5-10.1); Carbon Dioxide 25.9 meq/L (21.0-32.0); Glucose,Random 93 mg/dL (74-106)
[2018-03-08 01:58] LABS: Alanine Aminotransferase 30 U/L (10-53); Aspartate Aminotransferase 60 U/L (15-37); Corrected White Blood Count 15.7 th/mm3 (4.0-11.0); Eosinophils 1 % (0-4); Glomerular Filtration Rate 68 mL/min (>89); Lymphocytes 18 % (9-44); Monocytes 5 % (0-8); Tallied Nucleated RBC 6 (0-0)
[2018-03-08 01:59] LABS: Ovalocytes 1+; Platelet Estimate Normal (Normal); Sickle Cells 3+; Target Cells 1+
[2018-03-08 02:00] LABS: Total Protein 7.6 g/dL (6.4-8.2)
[2018-03-08 02:01] LABS: Alkaline Phosphatase 100 U/L (45-117)
[2018-03-08 02:51] LABS: Reticulocyte Percent 14.5 % (0.4-3.0)
[2018-03-08] MEDS ORDERED: HYDROmorphone PF Inj 1 MG/ML Ampul IV.PUSH ONE (03:23)
--- NOTE | 2018-03-08 04:08 | XR ---
EXAM DATE: 03/08/2018 4:03 AM EST AGE/SEX: 37 years / Female INDICATIONS: . Sickle cell crisis. Weakness. CLINICAL DATA: This is the patient's subsequent encounter. Patient reports that signs and symptoms h ave been present for 2 days and indicates a pain score of 7/10. MEDICAL/SURGICAL HISTORY: Sickle Cell disease. Fusion, thoracic. COMPARISON: [facility], CHEST 2V PA&LAT, 02/03/2018. . FINDINGS: PA and lateral views of the chest. Linear subsegmental atelectasis at the left lung base. Lungs other muller clear. Right-sided thoracic spine hardware again seen. Right-sided [id number] again seen. Car diomediastinal silhouette unchanged. No evidence of pleural effusion or pneumothorax. Proximal seng l bone infarcts noted. CONCLUSION: Left lower lung atelectasis. No other acute cardiopulmonary disease identified. Electronically signed by: Yusuf Baugh MD 03/08/2018 4:07 AM EST
[2018-03-08 04:21] LABS: Bilirubin,Urine Negative (Negative); Clarity,Urine Slightly Cloudy (Clear); Color,Urine Yellow (Yellw/Straw); Glucose,Urine (UA) Negative (Negative); Leukocyte Esterase,Urine Negative (Negative); Nitrite,Urine Negative (Negative); Specific Gravity,Urine 1.025 (1.002-1.035); Urobilinogen,Urine 0.2 mg/dL (Less than 2)
[2018-03-08 04:25] LABS: Bacteria,Urine Occasional /hpf; RBC,Urine 0-3 /hpf (0-3); WBC,Urine 0-5 /hpf (0-5)
[2018-03-08] MEDS ORDERED: Morphine Sulfate Inj 2 MG/ML Vial IV.PUSH PRN (05:38)
--- NOTE | 2018-03-08 05:55 | ED ---
HPI General Chief complaint: Sickle Cell Stated complaint: sickle cell event Time Seen by Provider: 03/08/18 01:08 Related Data Home Medications Medication Instructions Recorded Confirmed deferasirox [Jadenu] 180 mg PO TID 10/17/17 03/08/18 folic acid 1 mg PO DAILY 10/17/17 03/08/18 hydromorphone [Dilaudid] 1 mg PO Q6HR PRN 10/17/17 03/08/18 hydroxyurea 500 mg PO TID 10/17/17 03/08/18 amlodipine 5 mg PO DAILY 01/09/18 03/08/18 aspirin 81 mg PO DAILY 01/09/18 03/08/18 Allergies Allergy/AdvReac Type Severity Reaction Status Date / Time ketorolac Allergy Severe Itching Verified 03/08/18 01:06 morphine Allergy Mild Swelling Verified 03/08/18 01:06 ibuprofen AdvReac Severe Urinary Verified 03/08/18 01:06 Freq (Inc/Dec) methadone AdvReac Severe DEPRESSION Verified 03/08/18 01:06 [facility] Social History Social History Substance History: No History of Abuse Second Hand Smoke Exposure: No Smoking Status: Never smoker How Often Do You Have a Drink Containing Alcohol: Never Immunization History Tetanus Immunization: Unsure Course Initial Documented Vital Signs Temperature 98.7 F 03/08/18 00:50 Pulse Rate 112 H 03/08/18 00:50 Respiratory Rate 16 03/08/18 00:50 Blood Pressure 124/72 03/08/18 00:50 Pulse Oximetry 82 L 03/08/18 00:50 Last Documented Vital Signs Temperature 98.7 F 03/08/18 00:50 Pulse Rate 102 H 03/08/18 03:32 Respiratory Rate 18 03/08/18 03:32 Blood Pressure 146/89 H 03/08/18 03:32 Pulse Oximetry 97 03/08/18 03:32 Medical Decision Making MDM Narrative Medical decision making narrative: Patient was seen in the emergency department for sickle cell crisis and sent home but comes back in with increasing pain and discomfort. Patient now is willing to accept the transfusion option. Patient will be admitted for the transfusion Resolution of crisis Medical Screen Exam Complete: Yes Emergency Medical Condition: Yes Lab Data Result diagrams: 03/08/18 01:35 03/08/18 01:35 Lab Results 03/08/18 03/08/18 03/08/18 Range/Units 01:35 01:35 01:35 CBC w Diff Slide review pending WBC 16.6 H (4.0-11.0) th/mm3 Corrected WBC 15.7 H (4.0-11.0) th/mm3 RBC 2.06 L (4.00-5.30) mil/mm3 Hgb 6.6 L* (11.6-15.3) gm/dL Hct 19.2 L* (35.0-46.0) % MCV 93.0 (80.0-100.0) fL MCH 32.1 (27.0-34.0) pg MCHC 34.6 (32.0-36.0) % RDW 28.1 H (11.6-17.2) % Plt Count 300 (150-450) th/mm3 MPV 8.7 (7.0-11.0) fL WBC Differential Manual diff final Seg Neuts % (Manual) 76 H (16-70) % Lymphocytes % (Manual) 18 (9-44) % Monocytes % (Manual) 5 (0-8) % Eosinophils % (Manual) 1 (0-4) % Abs Neuts (Manual) 11.9 H (1.8-7.7) th/mm3 Nucleated RBCs/100 WBC 6 H (0-0) /100 WBC Differential Comment . Platelet Estimate Normal (Normal) Platelet Morphology Enlarged H (Normal) Polychromasia 4.0 H (0.0-1.9) % Sickle Cells 3+ H (None) Target Cells 1+ H (None) Ovalocytes 1+ H (None) Retic Count 14.5 H (0.4-3.0) % Absolute Retic 290.0 H (20.0-150.0) mil/L Sodium 141 (136-145) meq/L Potassium 3.7 (3.5-5.1) meq/L Chloride 109 H (98-107) meq/L Carbon Dioxide 25.9 (21.0-32.0) meq/L Anion Gap 6 (5-15) meq/L BUN 9 (7-18) mg/dL Creatinine 1.10 H (0.50-1.00) mg/dL Estimated GFR 68 L (>89) mL/min Random Glucose 93 (74-106) mg/dL Calcium 8.2 L (8.5-10.1) mg/dL Total Bilirubin 2.4 H (0.2-1.0) mg/dL AST 60 H (15-37) U/L ALT 30 (10-53) U/L Alkaline Phosphatase 100 (45-117) U/L Total Protein 7.6 (6.4-8.2) g/dL Albumin 3.4 (3.4-5.0) g/dL Urine Color (Yellw/Straw) Urine Clarity (Clear) Urine pH (5.0-8.5) Ur Specific [place] (1.002-1.035) Urine Protein (Neg-Trace) mg/dL Urine Glucose (UA) (Negative) mg/dL Urine Ketones (Negative) mg/dL Urine Occult Blood (Negative) Urine Nitrate (Negative) Urine Bilirubin (Negative) Urine Urobilinogen (Less than 2) mg/dL Ur Leukocyte Esterase (Negative) Urine RBC (0-3) /hpf Urine WBC (0-5) /hpf Ur Squamous Epith Cells (0-5) /hpf Urine Bacteria (None) /hpf Micro UA Comment Ur Microscopic Review Urine Culture Comments Blood Type AB Positive Antibody Screen Negative 03/08/18 Range/Units 04:10 CBC w Diff WBC (4.0-11.0) th/mm3 Corrected WBC (4.0-11.0) th/mm3 RBC (4.00-5.30) mil/mm3 Hgb (11.6-15.3) gm/dL Hct (35.0-46.0) % MCV (80.0-100.0) fL MCH (27.0-34.0) pg MCHC (32.0-36.0) % RDW (11.6-17.2) % Plt Count (150-450) th/mm3 MPV (7.0-11.0) fL WBC Differential Seg Neuts % (Manual) (16-70) % Lymphocytes % (Manual) (9-44) % Monocytes % (Manual) (0-8) % Eosinophils % (Manual) (0-4) % Abs Neuts (Manual) (1.8-7.7) th/mm3 Nucleated RBCs/100 WBC (0-0) /100 WBC Differential Comment Platelet Estimate (Normal) Platelet Morphology (Normal) Polychromasia (0.0-1.9) % Sickle Cells (None) Target Cells (None) Ovalocytes (None) Retic Count (0.4-3.0) % Absolute Retic (20.0-150.0) mil/L Sodium (136-145) meq/L Potassium (3.5-5.1) meq/L Chloride (98-107) meq/L Carbon Dioxide (21.0-32.0) meq/L Anion Gap (5-15) meq/L BUN (7-18) mg/dL Creatinine (0.50-1.00) mg/dL Estimated GFR (>89) mL/min Random Glucose (74-106) mg/dL Calcium (8.5-10.1) mg/dL Total Bilirubin (0.2-1.0) mg/dL AST (15-37) U/L ALT (10-53) U/L Alkaline Phosphatase (45-117) U/L Total Protein (6.4-8.2) g/dL Albumin (3.4-5.0) g/dL Urine Color Yellow (Yellw/Straw) Urine Clarity Slightly cloudy (Clear) Urine pH 6.0 (5.0-8.5) Ur Specific [place] 1.025 (1.002-1.035) Urine Protein 100 H (Neg-Trace) mg/dL Urine Glucose (UA) Negative (Negative) mg/dL Urine Ketones Negative (Negative) mg/dL Urine Occult Blood Large H (Negative) Urine Nitrate Negative (Negative) Urine Bilirubin Negative (Negative) Urine Urobilinogen 0.2 (Less than 2) mg/dL Ur Leukocyte Esterase Negative (Negative) Urine RBC 0-3 (0-3) /hpf Urine WBC 0-5 (0-5) /hpf Ur Squamous Epith Cells 6-10 H (0-5) /hpf Urine Bacteria Occasional H (None) /hpf Micro UA Comment Culture not ind Ur Microscopic Review Microscopic reviewed Urine Culture Comments Culture not ind Blood Type Antibody Screen Imaging Data Radiologist's impression: Chest X-Ray 03/08/18 03:12 CONCLUSION: Left lower lung atelectasis. No other acute cardiopulmonary disease identified. Discharge Plan Discharge Disposition Patient Disposition: ED Admit(ED Internal Use Only) Discharge Order Discharge Orders: ED Use Only Admit Order (Routine); Ordered 03/08/18 Ordered By: Yusuf Walters Discharge Details Discharge Comment: Patient receiving transfusion secondary to hemoglobin of 6.8 Diagnosis: Sickle-cell anemia Physicians Team ED Provider: Yusuf Walters Primary Care Provider: Lilo Shea Attending Provider: Dewey Whelan Discharge Interventions Interventions: Vital Signs Last Done: 03/08/18 03:32 Status ED Status: Admitted Observation Patient
[2018-03-08] MEDS: Sod Chloride 0.9% Inj 1,000 ML IV.CONT SCH ×2 (05:58→16:17)
[2018-03-08] MEDS: HYDROmorphone PF Inj 1 MG/ML Ampul IV.PUSH PRN ×5 (07:35→21:22)
[2018-03-08] MEDS ORDERED: Acetaminophen 500 MG Tablet PO ONE (09:29)
--- NOTE | 2018-03-08 12:42 | P.HP ---
History of Present Illness Primary Care Physician: Lilo Shea MD Chief Complaint: Sickle cell crisis History of Present Illness: This is a 37-year-old female patient with a known medical history of sickle cell anemia who presented to the ED with complaints of worsening pain. Patient presented to the ED yesterday morning and at that time she was stabilized and discharged with an H&H of 7.1. Patient did have a scheduled appointment with her anesthetic assistant today, Dr. Shea, although overnight patient states that her pain worsened which prompted her presentation to the ED. The pain was located in her midsternal chest, which sharp in nature and intermittent. She presented with a hemoglobin of 6.6/hematocrit 19.2 for which 2 units of PRBC has been ordered. Pain is well controlled with IV Dilaudid. She has also been started on her IV fluids. [employer] has been updated about patient presentation. It should be noted patient had a recent hospitalization in January and at that time was given IV fluids, pain control and her hemoglobin was stable at that time not requiring transfusion. - Diagnosis (1) Sickle-cell anemia (2) Sickle cell crisis Inpatient Certification: I certify that the inpatient services were ordered in accordance with Medicare regulations governing the order. This includes certification that hospital inpatient services are reasonable and necessary and in the case of services not specified as inpatient-only under 42 CFR 419.22(n), that they are appropriately provided as inpatient services in accordance to with the 2-midnight benchmark under 43 CFR 412.3(e) Estimated Total Length of Stay (Days): 2 Plans for Post Hospital Care: Not yet determined Review of Systems All other systems reviewed negative except as [facility] - History History Provided By: Patient - Medical History Medical History: Medical History (Last Reviewed 03/08/18 @ 12:40 by Jenifer El) H/O sickle cell anemia (Acute) Avascular necrosis CKD (chronic kidney disease) DVT (deep venous thrombosis) Sepsis Thrombocytopenia - Surgical History Surgical History: Surgical History (Last Reviewed 03/08/18 @ 12:40 by Jenifer El) History of cholecystectomy (Acute) History of hip replacement (Acute) Previous back surgery (Acute) History of appendectomy - Family History Family History: Family History (Last Reviewed 03/08/18 @ 12:40 by Jenifer El) Other Hypertension - Social History I have reviewed the patient's Social History: Yes - Tobacco History Second Hand Smoke Exposure: No Smoking Status: Never smoker - Alcohol History How Often Do You Have a Drink Containing Alcohol: Never - Substance Use History Substance History: No History of Abuse - Immunization History Tetanus Immunization: Unsure Medications and Allergies Active Medications: Active Medications Hydromorphone HCl (Dilaudid Pf Inj) 1 mg IV.PUSH Q4H PRN PRN Reason: PAIN SCALE 1 TO 5 Last Admin: 03/08/18 11:00 Dose: 1 mg Sodium Chloride (Ns Inj) 1,000 mls @ 100 mls/hr IV.CONT .Q10H MARLON Last Admin: 03/08/18 05:58 Dose: 100 mls/hr Ondansetron HCl (Zofran Inj) 4 mg IV.PUSH Q6H PRN PRN Reason: NAUSEA Last Admin: 03/08/18 07:35 Dose: 4 mg Sodium Chloride (Ns Flush) 2 ml IV.FLUSH PRN PRN PRN Reason: FLUSH AFTER USING IV ACCESS Last Admin: 03/08/18 09:53 Dose: 2 ml Sodium Chloride (Ns Flush) 2 ml IV.FLUSH PRN PRN PRN Reason: FLUSH AFTER USING IV ACCESS Sodium Chloride (Ns Flush) 2 ml IV.FLUSH BID MARLON Last Admin: 03/08/18 10:48 Dose: Not Given Allergies Allergy/AdvReac Type Severity Reaction Status Date / Time ketorolac Allergy Severe Itching Verified 03/08/18 01:06 morphine Allergy Mild Swelling Verified 03/08/18 01:06 ibuprofen AdvReac Severe Urinary Verified 03/08/18 01:06 Freq (Inc/Dec) methadone AdvReac Severe DEPRESSION Verified 03/08/18 01:06 Home Medications Medication Instructions Recorded Confirmed Type deferasirox [Jadenu] 180 mg PO TID 10/17/17 03/08/18 History folic acid 1 mg PO DAILY 10/17/17 03/08/18 History hydromorphone [Dilaudid] 1 mg PO Q6HR PRN 10/17/17 03/08/18 History hydroxyurea 500 mg PO TID 10/17/17 03/08/18 History amlodipine 5 mg PO DAILY 01/09/18 03/08/18 History aspirin 81 mg PO DAILY 01/09/18 03/08/18 History Exam Vital signs: Vital Signs 03/08/18 00:50 03/08/18 01:50 03/08/18 03:32 Temperature 98.7 F Pulse Rate 112 H 100 H 102 H Respiratory Rate 16 18 18 Blood Pressure 124/72 140/94 H 146/89 H Pulse Oximetry 82 L 99 97 03/08/18 06:00 03/08/18 06:34 03/08/18 06:43 Temperature 98.4 F 98.1 F Pulse Rate 101 H 72 99 H Respiratory Rate 18 16 16 Blood Pressure 122/80 110/62 110/62 Pulse Oximetry 96 93 L 93 L 03/08/18 10:37 03/08/18 10:39 03/08/18 10:56 Temperature 98.7 F 98.7 F 98.7 F Pulse Rate 79 78 Respiratory Rate 16 16 16 Blood Pressure 106/68 106/68 107/67 Pulse Oximetry 94 L 03/08/18 11:00 03/08/18 11:26 Temperature 98.6 F Pulse Rate 79 Respiratory Rate 16 Blood Pressure 107/67 Pulse Oximetry 94 L Intake & Output 03/07/18 03/08/18 03/08/18 18:59 06:59 18:59 Intake Total 1999 0 / 0 Output Total 450 / 450 Balance 1550 / 1550 0 / 0 Weight 68.8 kg Intake: IV 1999 NS Inj 1,000 ML @ 2000 mls/hr 1999 IV.SIG Q30M [facility] Rx#:[id number] Intake (Blood Product) Amt 0 / 0 Rbc As-3 Leukoreduced Unit 0 / 0 [id number] Output: Urine 450 / 450 Narrative: GENERAL: Well-developed, well-nourished patient in [facility]. SKIN: Warm and dry. No rash. HEAD: Normocephalic. Atraumatic. EYES: Pupils equal and round. No scleral icterus. No injection or drainage. ENT: No nasal bleeding or discharge. Mucous membranes pink and moist. NECK: Supple. Trachea midline. CARDIOVASCULAR: Regular rate and rhythm. S1, S2 noted. No murmur appreciated. RESPIRATORY: No accessory muscle use. Clear to auscultation. Breath sounds equal bilaterally. GASTROINTESTINAL: Abdomen soft, non-tender, nondistended. Normoactive bowel sounds x4. MUSCULOSKELETAL: No obvious deformities. Extremities without clubbing, cyanosis , or edema. NEUROLOGICAL: Awake and alert. No obvious cranial nerve deficits. Motor grossly within normal limits. 5/5 muscle strength in bilateral upper and lower extremities. Normal speech. PSYCHIATRIC: Appropriate mood and affect; insight and judgment normal. Results - Labs CBC & Chem 7: 03/08/18 01:35 03/08/18 01:35 Labs: Laboratory Results - last 24 hr 03/08/18 03/08/18 03/08/18 01:35 01:35 01:35 CBC w Diff Slide review pending WBC 16.6 H Corrected WBC 15.7 H RBC 2.06 L Hgb 6.6 L* Hct 19.2 L* MCV 93.0 MCH 32.1 MCHC 34.6 RDW 28.1 H Plt Count 300 MPV 8.7 WBC Differential Manual diff final Seg Neuts % (Manual) 76 H Lymphocytes % (Manual) 18 Monocytes % (Manual) 5 Eosinophils % (Manual) 1 Abs Neuts (Manual) 11.9 H Nucleated RBCs/100 WBC 6 H Differential Comment . Platelet Estimate Normal Platelet Morphology Enlarged H Polychromasia 4.0 H Sickle Cells 3+ H Target Cells 1+ H Ovalocytes 1+ H Retic Count 14.5 H Absolute Retic 290.0 H Sodium 141 Potassium 3.7 Chloride 109 H Carbon Dioxide 25.9 Anion Gap 6 BUN 9 Creatinine 1.10 H Estimated GFR 68 L Random Glucose 93 Calcium 8.2 L Total Bilirubin 2.4 H AST 60 H ALT 30 Alkaline Phosphatase 100 Total Protein 7.6 Albumin 3.4 Urine Color Urine Clarity Urine pH Ur Specific [place] Urine Protein Urine Glucose (UA) Urine Ketones Urine Occult Blood Urine Nitrate Urine Bilirubin Urine Urobilinogen Ur Leukocyte Esterase Urine RBC Urine WBC Ur Squamous Epith Cells Urine Bacteria Micro UA Comment Ur Microscopic Review Urine Culture Comments Blood Type AB Positive Antibody Screen Negative MTS Gel Crossmatch 03/08/18 03/08/18 04:10 06:22 CBC w Diff WBC Corrected WBC RBC Hgb Hct MCV MCH MCHC RDW Plt Count MPV WBC Differential Seg Neuts % (Manual) Lymphocytes % (Manual) Monocytes % (Manual) Eosinophils % (Manual) Abs Neuts (Manual) Nucleated RBCs/100 WBC Differential Comment Platelet Estimate Platelet Morphology Polychromasia Sickle Cells Target Cells Ovalocytes Retic Count Absolute Retic Sodium Potassium Chloride Carbon Dioxide Anion Gap BUN Creatinine Estimated GFR Random Glucose Calcium Total Bilirubin AST ALT Alkaline Phosphatase Total Protein Albumin Urine Color Yellow Urine Clarity Slightly cloudy Urine pH 6.0 Ur Specific [place] 1.025 Urine Protein 100 H Urine Glucose (UA) Negative Urine Ketones Negative Urine Occult Blood Large H Urine Nitrate Negative Urine Bilirubin Negative Urine Urobilinogen 0.2 Ur Leukocyte Esterase Negative Urine RBC 0-3 Urine WBC 0-5 Ur Squamous Epith Cells 6-10 H Urine Bacteria Occasional H Micro UA Comment Culture not ind Ur Microscopic Review Microscopic reviewed Urine Culture Comments Culture not ind Blood Type Antibody Screen MTS Gel Crossmatch See Detail - Imaging Impressions Chest X-Ray 03/08/18 03:12 CONCLUSION: Left lower lung atelectasis. No other acute cardiopulmonary disease identified. Caprini VTE Risk Assessment Caprini VTE Risk Assessment: No/Low Risk (score <= 1) Caprini Risk Assessment Model: Point Value = 1 Point Value = 2 Point Value = 3 Point Value = 5 Age 41-60 Minor surgery BMI > 25 kg/m2 Swollen legs Varicose veins or History of unexplained or recurrent spontaneous Oral contraceptives or hormone replacement Sepsis (< 1 month) Serious lung disease, including pneumonia (< 1 month) Abnormal pulmonary function Acute myocardial infarction Congestive heart failure (< 1 month) History of inflammatory bowel disease Medical patient at bed rest Age 61-74 Arthroscopic surgery Major open surgery (> 45 min) Laparoscopic surgery (> 45 min) Malignancy Confined to bed (> 72 hours) Immobilizing plaster cast Central venous access Age >= 75 History of VTE Family history of VTE Factor V Leiden Prothrombin [id number] Lupus anticoagulant Anticardiolipin antibodies Elevated serum homocysteine Heparin-induced thrombocytopenia Other congenital or acquired thrombophilia Stroke (< 1 month) Elective arthroplasty Hip, pelvis, or leg fracture Acute spinal cord injury (< 1 month) Prophylaxis Regimen: Total Risk Factor Score Risk Level Prophylaxis Regimen 0-1 Low Early ambulation 2 Moderate Order ONE of the following: *Sequential Compression Device (SCD) *Heparin 5000 units SQ BID 3-4 Higher Order ONE of the following medications: *Heparin 5000 units SQ TID *Enoxaparin/Lovenox 40 mg SQ daily (WT < 150 kg, CrCl > 30 mL/min) *Enoxaparin/Lovenox 30 mg SQ daily (WT < 150 kg, CrCl > 10-29 mL/min) *Enoxaparin/Lovenox 30 mg SQ BID (WT < 150 kg, CrCl > 30 mL/min) AND/OR *Sequential Compression Device (SCD) 5 or more Highest Order ONE of the following medications: *Heparin 5000 units SQ TID (Preferred with Epidurals) *Enoxaparin/Lovenox 40 mg SQ daily (WT < 150 kg, CrCl > 30 mL/min) *Enoxaparin/Lovenox 30 mg SQ daily (WT < 150 kg, CrCl > 10-29 mL/min) *Enoxaparin/Lovenox 30 mg SQ BID (WT < 150 kg, CrCl > 30 mL/min) AND *Sequential Compression Device (SCD) Assessment and Plan - Assessment (1) Sickle-cell anemia Code(s): D57.1 - Sickle-cell disease without crisis Status: Acute (2) Sickle cell crisis Code(s): D57.00 - Hb-SS disease with crisis, unspecified Status: Acute - Plan 37 yo F with h/o SCA: Sickle cell crisis Acute anemia secondary to sickle cell anemia Intractable pain secondary to above -CXR reviewed and no acute findings. -Continue IVF. -Pain control with Morphine IV per pain scale -Antiemetics as need. -Continue home meds. -Check LDH and retic count, pending. -Follows with Dr Shea as OP. Consulted, input and recommendations pending. -Monitor H/H. HGB at 6.6. 2 units PRBC ordered and transfused. Awaiting repeat H &H. DVT prophylaxis: SCDs. Ambulation. (1) Sickle-cell anemia Qualifiers: Sickle-cell associated disorders: with unspecified crisis Qualified Code(s): D57.00 - Hb-SS disease with crisis, unspecified; D57.0 - Hb-SS disease with crisis
[2018-03-08] MEDS ORDERED: Hydroxyurea 500 MG Capsule PO SCH (13:00)
[2018-03-08] MEDS: amLODIPine 5 MG Tablet PO SCH (14:35)
[2018-03-08] MEDS: DEFERASIROX 180 MG PO SCH (16:16)
[2018-03-08 16:37] LABS: Baso # (Auto) 0.3 th/mm3 (0.0-0.2); Baso % (Auto) 1.9 % (0.0-2.0); Eos # (Auto) 0.6 th/mm3 (0.0-0.4); Eos % (Auto) 3.9 % (0.0-4.0); Hematocrit 26.7 % (35.0-46.0); Hemoglobin 9.2 gm/dL (11.6-15.3); Lymph # (Auto) 6.2 th/mm3 (1.0-4.8); Lymph % (Auto) 38.1 % (9.0-44.0); Mean Corpuscular HGB Conc 34.5 % (32.0-36.0); Mean Corpuscular Hemoglobin 31.7 pg (27.0-34.0); Mean Platelet Volume 8.4 fL (7.0-11.0); Mono # (Auto) 1.8 th/mm3 (0.0-0.9); Mono % (Auto) 10.8 % (0.0-8.0); Neut # (Auto) 7.4 th/mm3 (1.8-7.7); Neut % (Auto) 45.3 % (16.0-70.0); Platelet Count 253 th/mm3 (150-450); Red Cell Distribution Width 19.5 % (11.6-17.2); White Blood Count 16.4 th/mm3 (4.0-11.0)
[2018-03-08] MEDS ORDERED: DEFERASIROX 180 MG PO SCH (17:00)
[2018-03-08 17:21] LABS: Eosinophils 2 % (0-4); Lymphocytes 26 % (9-44); Monocytes 10 % (0-8); Ovalocytes 1+; Platelet Estimate Normal (Normal); Platelet Morphology Normal (Normal); Sickle Cells 1+; Tallied Nucleated RBC 1 (0-0); Target Cells 1+; Tear Drop Cells 1+
[2018-03-08 17:39] LABS: Reticulocyte Percent 10.1 % (0.4-3.0)
[2018-03-08] MEDS: Enoxaparin Inj 40 MG/0.4 ML Syringe SQ SCH (19:16)
--- NOTE | 2018-03-08 20:27 | MB ---
cc: Lilo Shea MD, Michael J DO DATE: 03/08/2018 REFERRING PHYSICIAN: Luis E Main MD CHIEF COMPLAINT: QUINTIN Scanlon, requests consultation for April Flores regarding sickle cell disease and vasoocclusive pain crisis. HISTORY OF PRESENT ILLNESS: Ms. Flores is a well known, 37-year-old woman with sickle cell disease. She has frequent mild vasoocclusive pain crises. She is typically managed in an outpatient setting. She comes in on Wednesday with vasoocclusive pain symptoms. She was trying to wait for her oncology appointment; however, she had significant symptoms and pain and distress such that she came back to the hospital on 03/08/2018 and was subsequently admitted. Her hemoglobin on 03/07/2018 was 7.1. When she returned, her white count was elevated at 16.6, hemoglobin is 6.6, platelet count of 300,000. She had nucleated red cells. Absolute neutrophil count was elevated. Chemistry is significant for an increasing creatinine 1.1. Total bilirubin increased to 2.4, AST is 60, ALT is 30, alkaline phosphatase is normal, LDH is 662. She was transferred promptly transfused 2 units of packed red cells. She is feeling better. She still has vasoocclusive pain symptoms. She has sick contact at home. Her son has an upper respiratory infection. Her family members have been vaccinated for the flu, except for her . She denies any diarrhea. She denies any constipation. She is moving her bowels regularly. She takes on a p.r.n. basis. She has some queasiness. She has some vomiting. She is taking it easy with her dinner. Her course is complicated by iron overload. Her last ferritin was 5400 in November. She is on oral iron chelation therapy. She has been tried on IV iron chelation with Desferal. PAST MEDICAL HISTORY: 1. Avascular necrosis. 2. Chronic pain. 3. Chronic renal insufficiency. 4. Multiple deep vein thromboses. 5. Iron overload. 6. Chronic anemia. 7. Scoliosis. 8. Sickle cell disease. 9. Frequent vasoocclusive pain crises. PAST SURGICAL HISTORY: Hip replacement, Infusaport placement, cholecystectomy. ALLERGIES: MORPHINE SULFATE AND TORADOL. MEDICATIONS: From home include: 1. Amlodipine. 2. Dilaudid p.r.n. 3. Folic acid. 4. Hydrea. 5. Jadenu. 6. aspirin. FAMILY HISTORY: Both parents have trait. SOCIAL HISTORY: She is and lives with her and son. She denies any tobacco, alcohol or illicit drug use. PHYSICAL EXAMINATION: VITAL SIGNS: Temperature 98.5, heart rate 101, respiratory rate 16, blood pressure 124/73, saturation 93%. GENERAL: Ms. Flores is a well-developed, well-nourished woman in no acute distress at rest. HEENT: Pupils are round, reactive to light and accommodation. Sclerae are mildly icteric. Oropharynx is clear. NECK: Supple. LUNGS: Clear. There is scoliosis with an old scar on the right back. CARDIOVASCULAR: Reveals a mild tachycardia. ABDOMEN: Benign. EXTREMITIES: Lower extremities, no edema. NEUROLOGIC: Nonfocal. LABORATORY DATA: As described above. ASSESSMENT AND PLAN: Ms. Flores is a 37-year-old woman, premenopausal with history of sickle cell disease and frequent vasoocclusive pain crises. She attributes her vasoocclusive pain symptoms to the change in weather. It is quite cold. She is admitted with severe anemia and was transfused 2 units of packed red cells. She is feeling better. We discussed her nausea. We are not certain if this is a result of viral gastroenteritis. She also may have nausea from the hydroxyurea for this reason. Hydrea is held at present. Her Zofran will be scheduled. Phenergan is used as an adjunctive therapy to the Zofran, if nausea despite Zofran with vomiting. She has been transfused 2 units of packed red cells. Hemoglobin is 9. Recommend no additional therapy. We will repeat a CBC in the morning. IV fluid hydration is being continued. Her pain regimen is optimized to increase the frequency of her medications, Dilaudid 1 mg IV every 3 hours. We discussed keeping the dose the same, but increase the frequency as she experiences a wearing off effect during that time period. I anticipate her followup in clinic once discharged. She discussed plans to proceed with endometrial ablation by Dr. Pandey. Her bilirubin, LDH, hemoglobin and retic count will be followed. MD RAJ Sparrow/lc/do , 06:03 PM , 06:17 PM
[2018-03-09] MEDS: HYDROmorphone PF Inj 1 MG/ML Ampul IV.PUSH PRN ×7 (00:26→20:28)
[2018-03-09] MEDS: Sod Chloride 0.9% Inj 1,000 ML IV.CONT SCH ×3 (00:30→10:59)
[2018-03-09 06:49] LABS: Hematocrit 26.5 % (35.0-46.0); Mean Corpuscular Hemoglobin 30.9 pg (27.0-34.0); Mean Platelet Volume 8.6 fL (7.0-11.0); Platelet Count 257 th/mm3 (150-450); Red Blood Count 2.91 mil/mm3 (4.00-5.30); White Blood Count 14.3 th/mm3 (4.0-11.0)
[2018-03-09 06:56] LABS: Potassium 3.7 meq/L (3.5-5.1)
[2018-03-09 07:06] LABS: Calcium 7.9 mg/dL (8.5-10.1); Carbon Dioxide 26.5 meq/L (21.0-32.0)
[2018-03-09 08:24] LABS: Acanthocytes 1+; Corrected White Blood Count 12.8 th/mm3 (4.0-11.0); Eosinophils 12 % (0-4); Lymphocytes 29 % (9-44); Metamyelocytes 1 % (0-1); Monocytes 3 % (0-8); Sickle Cells 2+; Tallied Nucleated RBC 12 (0-0); Target Cells 1+
[2018-03-09 08:25] LABS: Ovalocytes 1+; Platelet Estimate Normal (Normal); Platelet Morphology Normal (Normal)
[2018-03-09] MEDS: amLODIPine 5 MG Tablet PO SCH (09:21)
[2018-03-09] MEDS: Enoxaparin Inj 40 MG/0.4 ML Syringe SQ SCH (09:21)
[2018-03-09] MEDS: Folic Acid 1 MG Tablet PO SCH (09:21)
[2018-03-09] MEDS: DEFERASIROX 180 MG PO SCH ×3 (09:43→17:31)
[2018-03-09 10:17] LABS: Reticulocyte Percent 12.1 % (0.4-3.0)
--- NOTE | 2018-03-09 11:51 | P.PNIM ---
Subjective Interval history: Follow-up sickle cell crisis/anemia. Patient seen and examined, status post PRBC transfusion, H&H stable. Patient is improving, still on 2 L nasal cannula. She states she does have intermittent shortness of breath especially with exertion. Her pain is better controlled on current regimen. Tolerating p.o. intake no abdominal pain, nausea or vomiting. No chest pain. Vital signs stable. Afebrile. Hematology in to see patient last evening. Appreciate input recommendations. Physical Exam Vital signs: Vital Signs 03/08/18 12:44 03/08/18 12:46 03/08/18 12:50 Temperature 98.4 F Pulse Rate 102 H Respiratory Rate Blood Pressure 121/73 121/73 111/70 Pulse Oximetry 93 L 86 L 93 L 03/08/18 13:00 03/08/18 13:16 03/08/18 13:31 Temperature 98.5 F Pulse Rate 101 H Respiratory Rate 16 Blood Pressure 111/70 119/70 121/72 Pulse Oximetry 03/08/18 13:46 03/08/18 14:01 03/08/18 14:16 Temperature Pulse Rate Respiratory Rate Blood Pressure 124/73 135/90 116/83 Pulse Oximetry 03/08/18 14:31 03/08/18 14:53 03/08/18 16:23 Temperature 98.6 F Pulse Rate 102 H Respiratory Rate 18 Blood Pressure 128/82 122/66 120/90 Pulse Oximetry 94 L 03/08/18 19:30 03/08/18 20:00 03/09/18 00:00 Temperature 97.9 F 97.4 F L Pulse Rate 95 H 85 Respiratory Rate 17 19 Blood Pressure 126/79 128/84 Pulse Oximetry 95 95 03/09/18 07:51 03/09/18 08:00 Temperature 98.6 F Pulse Rate 109 H Respiratory Rate 22 Blood Pressure 132/84 Pulse Oximetry 98 92 L Intake & Output 03/08/18 03/09/18 03/09/18 18:59 06:59 18:59 Intake Total 1620 / 1620 1250 / 1250 1400 / 1400 Balance 1620 / 1620 1250 / 1250 1400 / 1400 Intake: IV 1000 / 1000 1000 / 1000 1000 / 1000 NS Inj 1,000 ML @ 100 mls/hr IV 1000 / 1000 1000 / 1000 1000 / 1000 .CONT .Q10H [facility] Rx#:[id number] Oral 220 / 220 250 / 250 Intake (Blood Product) Amt 400 / 400 400 / 400 Rbc As-3 Leukoreduced Unit 400 / 400 [id number] Rbc As-3 Leukoreduced Unit 0 / 0 400 / 400 [id number] Narrative: GENERAL: Well-developed, well-nourished patient in [facility]. SKIN: Warm and dry. No rash. HEAD: Normocephalic. Atraumatic. EYES: Pupils equal and round. No scleral icterus. No injection or drainage. ENT: No nasal bleeding or discharge. Mucous membranes pink and moist. NECK: Supple. Trachea midline. CARDIOVASCULAR: Regular rate and rhythm. S1, S2 noted. No murmur appreciated. RESPIRATORY: No accessory muscle use. Clear to auscultation. Breath sounds equal bilaterally. GASTROINTESTINAL: Abdomen soft, non-tender, nondistended. Normoactive bowel sounds x4. MUSCULOSKELETAL: No obvious deformities. Extremities without clubbing, cyanosis , or edema. NEUROLOGICAL: Awake and alert. No obvious cranial nerve deficits. Motor grossly within normal limits. 5/5 muscle strength in bilateral upper and lower extremities. Normal speech. PSYCHIATRIC: Appropriate mood and affect; insight and judgment normal. Results - Labs CBC & Chem 7: 03/09/18 06:20 03/09/18 06:20 Laboratory Results - last 24 hr 03/08/18 03/08/18 03/08/18 01:35 06:22 16:30 CBC w Diff Slide review pending WBC 16.4 H Corrected WBC RBC 2.90 L Hgb 9.2 L D Hct 26.7 L MCV 92.0 MCH 31.7 MCHC 34.5 RDW 19.5 H D Plt Count 253 MPV 8.4 Neut % (Auto) 45.3 Lymph % (Auto) 38.1 [place] % (Auto) 10.8 H Eos % (Auto) 3.9 Baso % (Auto) 1.9 Neut # (Auto) 7.4 Lymph # (Auto) 6.2 H [place] # (Auto) 1.8 H Eos # (Auto) 0.6 H Baso # (Auto) 0.3 H WBC Differential Manual diff final Seg Neuts % (Manual) 62 Lymphocytes % (Manual) 26 Monocytes % (Manual) 10 H Eosinophils % (Manual) 2 Metamyelocytes % (Man) Abs Neuts (Manual) 10.2 H Nucleated RBCs/100 WBC 1 H Differential Comment . Platelet Estimate Normal Platelet Morphology Normal Sickle Cells 1+ H Target Cells 1+ H Tear Drop Cells 1+ H Ovalocytes 1+ H [place]-Paint Bodies Acanthocytes (Spur) Keratocytes 1+ H Retic Count Absolute Retic Sodium Potassium Chloride Carbon Dioxide Anion Gap BUN Creatinine Estimated GFR Random Glucose Calcium Total Bilirubin Direct Bilirubin Indirect Bilirubin Lactate Dehydrogenase 662 H MTS Gel Crossmatch See Detail 03/08/18 03/09/18 03/09/18 16:30 06:20 06:20 CBC w Diff Slide review pending WBC 14.3 H Corrected WBC 12.8 H RBC 2.91 L Hgb 9.0 L Hct 26.5 L MCV 91.0 MCH 30.9 MCHC 34.0 RDW 20.0 H Plt Count 257 MPV 8.6 Neut % (Auto) Lymph % (Auto) [place] % (Auto) Eos % (Auto) Baso % (Auto) Neut # (Auto) Lymph # (Auto) [place] # (Auto) Eos # (Auto) Baso # (Auto) WBC Differential Manual diff final Seg Neuts % (Manual) 55 Lymphocytes % (Manual) 29 Monocytes % (Manual) 3 Eosinophils % (Manual) 12 H Metamyelocytes % (Man) 1 Abs Neuts (Manual) 7.2 Nucleated RBCs/100 WBC 12 H Differential Comment . Platelet Estimate Normal Platelet Morphology Normal Sickle Cells 2+ H Target Cells 1+ H Tear Drop Cells Ovalocytes 1+ H [place]-Paint Bodies Not Reportable Acanthocytes (Spur) 1+ H Keratocytes 1+ H Retic Count 10.1 H Absolute Retic 279.1 H Sodium 142 Potassium 3.7 Chloride 109 H Carbon Dioxide 26.5 Anion Gap 7 BUN 4 L Creatinine 0.94 Estimated GFR 82 L Random Glucose 86 Calcium 7.9 L Total Bilirubin 2.0 H Direct Bilirubin 0.5 H Indirect Bilirubin 1.5 H Lactate Dehydrogenase 669 H MTS Gel Crossmatch 03/09/18 06:20 CBC w Diff WBC Corrected WBC RBC Hgb Hct MCV MCH MCHC RDW Plt Count MPV Neut % (Auto) Lymph % (Auto) [place] % (Auto) Eos % (Auto) Baso % (Auto) Neut # (Auto) Lymph # (Auto) [place] # (Auto) Eos # (Auto) Baso # (Auto) WBC Differential Seg Neuts % (Manual) Lymphocytes % (Manual) Monocytes % (Manual) Eosinophils % (Manual) Metamyelocytes % (Man) Abs Neuts (Manual) Nucleated RBCs/100 WBC Differential Comment Platelet Estimate Platelet Morphology Sickle Cells Target Cells Tear Drop Cells Ovalocytes [place]-Paint Bodies Acanthocytes (Spur) Keratocytes Retic Count 12.1 H Absolute Retic 329.4 H Sodium Potassium Chloride Carbon Dioxide Anion Gap BUN Creatinine Estimated GFR Random Glucose Calcium Total Bilirubin Direct Bilirubin Indirect Bilirubin Lactate Dehydrogenase MTS Gel Crossmatch Assessment and Plan - Assessment (1) Sickle-cell anemia Code(s): D57.1 - Sickle-cell disease without crisis Status: Acute (2) Sickle cell crisis Code(s): D57.00 - Hb-SS disease with crisis, unspecified Status: Acute - Plan 37 yo F with h/o SCA: Sickle cell crisis Acute anemia secondary to sickle cell anemia, improving Intractable pain secondary to above -CXR reviewed and no acute findings. -Continue IVF. -Pain control with Morphine IV per pain scale. Well controlled. -Antiemetics as need. -Continue home meds. -LDH and retic count elevated. -Follows with Dr Shea as OP. Consulted, appreciate input and recommendations. With improvement with pain. -Monitor H/H. HGB at 6.6 on presentation. 2 units PRBC ordered and transfused. H&H stable. -Supplemental O2 to keep sats >92%. Patient is using 2 LNC at this time. Wean as tolerated. DVT prophylaxis: SCDs. Ambulation. (1) Sickle-cell anemia Qualifiers: Sickle-cell associated disorders: with unspecified crisis Qualified Code(s): D57.00 - Hb-SS disease with crisis, unspecified; D57.0 - Hb-SS disease with crisis
[2018-03-10] MEDS: Sod Chloride 0.9% Inj 1,000 ML IV.CONT SCH ×2 (01:01→09:26)
[2018-03-10] MEDS: HYDROmorphone PF Inj 1 MG/ML Ampul IV.PUSH PRN ×2 (02:24→08:22)
[2018-03-10 08:08] VITALS: O2SAT 96
[2018-03-10] MEDS: amLODIPine 5 MG Tablet PO SCH (08:20)
[2018-03-10] MEDS: Folic Acid 1 MG Tablet PO SCH (08:20)
[2018-03-10] MEDS: Enoxaparin Inj 40 MG/0.4 ML Syringe SQ SCH (08:20)
[2018-03-10] MEDS: DEFERASIROX 180 MG PO SCH (08:21)
[2018-03-10 08:44] VITALS: BP 137/86; PULSE 90; RESP 19; TEMP 97.9
--- NOTE | 2018-03-10 09:31 | P.DS ---
Date of admission: 03/08/18 05:43 Primary care physician: Lilo Shea MD Anticipated date of discharge: 03/10/18 Brief History from admission: This is a 37-year-old female patient with a known medical history of sickle cell anemia who presented to the ED with complaints of worsening pain. Patient presented to the ED yesterday morning and at that time she was stabilized and discharged with an H&H of 7.1. 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 Shea, although overnight patient states that her pain worsened which prompted her presentation to the ED. The pain was located in her midsternal chest, which sharp in nature and intermittent. She presented with a hemoglobin of 6.6/hematocrit 19.2 for which 2 units of PRBC has been ordered. Pain is well controlled with IV Dilaudid. She has also been started on her IV fluids. Associate Genetics Professor has been updated about patient presentation. It should be noted patient had a recent hospitalization in January and at that time was given IV fluids, pain control and her hemoglobin was stable at that time not requiring transfusion. Patient update on day of discharge: Follow-up sickle cell anemia. Patient seen and examined, sitting in chair comfortably no apparent distress. Emulating in health. Pending results. Annual follow-up with Dr. Shea. Continue all medications as ordered. DS: Diagnosis - Discharge Diagnosis (1) Sickle-cell anemia Status: Acute (2) Sickle cell crisis Status: Acute DS: Summary Hospital Course: 37 yo F with h/o SCA who presented with sickle cell crisis acute anemia secondary to sickle cell anemia. Hemoglobin 6.6 on presentation. Was given 2 units PRBC. H&H stable. Chest x-ray showing no acute findings. Was given IV fluids. Pain control with Dilaudid. Antimetics as needed. LDH from concurrent were elevated. Dr. Shea was consulted, saw patient during hospitalization. Dc home. Rx is written. Activity as tolerated. Diet as tolerated. Follow-up PCP. - Time Spent with Patient Total time spent providing and/or coordinating discharge services: Greater than 30 minutes - Quality: VTE Deep Vein Thrombosis/Pulmonary Embolism Present on Admission: No Exam Vital signs: Vital Signs 03/09/18 12:00 03/09/18 16:00 03/09/18 20:00 Temperature 97.1 F L 98.3 F 96.3 F L Pulse Rate 89 100 H 95 H Respiratory Rate 20 20 16 Blood Pressure 134/87 136/89 139/87 Pulse Oximetry 96 92 L 90 L 03/09/18 23:43 03/10/18 00:00 03/10/18 03:57 Temperature 98.0 F Pulse Rate 104 H Respiratory Rate 16 18 16 Blood Pressure 119/62 Pulse Oximetry 90 L 03/10/18 08:00 03/10/18 08:08 Temperature 97.9 F Pulse Rate 90 Respiratory Rate 19 Blood Pressure 137/86 Pulse Oximetry 95 96 Intake & Output 03/09/18 03/10/18 03/10/18 18:59 06:59 18:59 Intake Total 1900 / 1900 1360 / 1360 240 / 240 Balance 1900 / 1900 1360 / 1360 240 / 240 Weight 69.2 kg Intake: IV 1000 / 1000 1000 / 1000 NS Inj 1,000 ML @ 100 mls/hr IV 1000 / 1000 1000 / 1000 .CONT .Q10H [facility] Rx#:[id number] Oral 500 / 500 360 / 360 240 / 240 Intake (Blood Product) Amt 400 / 400 Rbc As-3 Leukoreduced Unit 400 / 400 [id number] Other: # Voids 2 Date of Last Bowel Movement 03/06/18 Narrative: GENERAL: Well-developed, well-nourished patient in [facility]. SKIN: Warm and dry. No rash. HEAD: Normocephalic. Atraumatic. EYES: Pupils equal and round. No scleral icterus. No injection or drainage. ENT: No nasal bleeding or discharge. Mucous membranes pink and moist. NECK: Supple. Trachea midline. CARDIOVASCULAR: Regular rate and rhythm. S1, S2 noted. No murmur appreciated. RESPIRATORY: No accessory muscle use. Clear to auscultation. Breath sounds equal bilaterally. GASTROINTESTINAL: Abdomen soft, non-tender, nondistended. Normoactive bowel sounds x4. MUSCULOSKELETAL: No obvious deformities. Extremities without clubbing, cyanosis , or edema. NEUROLOGICAL: Awake and alert. No obvious cranial nerve deficits. Motor grossly within normal limits. 5/5 muscle strength in bilateral upper and lower extremities. Normal speech. PSYCHIATRIC: Appropriate mood and affect; insight and judgment normal. Results Procedures completed during hospitalization: See above. Labs on day of discharge: Labs from last 24 hours 1203/09/18 03/08/18 06:20 06:20 06:22 Retic Count 12.1 H Absolute Retic 329.4 H Lactate Dehydrogenase 669 H MTS Gel Crossmatch See Detail - Impressions ITS Impressions Chest X-Ray 03/08/18 03:12 CONCLUSION: Left lower lung atelectasis. No other acute cardiopulmonary disease identified. Discharge Plan - Discharge Disposition Patient Disposition: 01 Discharge Home - Discharge Condition Condition: Good - Discharge Order Discharge Orders: Discharge Order (Routine); Ordered 03/10/18 Ordered By: Jenifer El - Discharge Details Anticipated Discharge Date: 03/10/18 - Physicians Team Primary Care Provider: Lilo Shea Attending Provider: Luis E Main Other Providers: Lilo Shea MD ; Devang Siddiqi
[2018-03-10 10:00] LABS: Baso % (Auto) 0.2 % (0.0-2.0); Eos # (Auto) 1.3 th/mm3 (0.0-0.4); Eos % (Auto) 9.8 % (0.0-4.0); Hematocrit 27.1 % (35.0-46.0); Hemoglobin 9.3 gm/dL (11.6-15.3); Lymph # (Auto) 5.4 th/mm3 (1.0-4.8); Lymph % (Auto) 40.6 % (9.0-44.0); Mean Corpuscular HGB Conc 34.2 % (32.0-36.0); Mean Corpuscular Hemoglobin 32.4 pg (27.0-34.0); Mean Corpuscular Volume 94.6 fL (80.0-100.0); Mean Platelet Volume 9.4 fL (7.0-11.0); Mono # (Auto) 1.1 th/mm3 (0.0-0.9); Mono % (Auto) 8.6 % (0.0-8.0); Neut # (Auto) 5.3 th/mm3 (1.8-7.7); Neut % (Auto) 40.8 % (16.0-70.0); Platelet Count 245 th/mm3 (150-450); Red Blood Count 2.87 mil/mm3 (4.00-5.30); Red Cell Distribution Width 21.6 % (11.6-17.2); White Blood Count 13.1 th/mm3 (4.0-11.0)
[2018-03-10 10:01] LABS: Chloride 108 meq/L (98-107); Potassium 3.7 meq/L (3.5-5.1); Sodium 143 meq/L (136-145)
[2018-03-10 10:03] LABS: Calcium 8.3 mg/dL (8.5-10.1)
[2018-03-10 10:04] LABS: Anion Gap 7 meq/L (5-15); Blood Urea Nitrogen 7 mg/dL (7-18); Carbon Dioxide 27.9 meq/L (21.0-32.0); Glucose,Random 119 mg/dL (74-106)
[2018-03-10 10:07] LABS: Alanine Aminotransferase 34 U/L (10-53); Glomerular Filtration Rate 76 mL/min (>89)
[2018-03-10 10:09] LABS: Total Protein 7.2 g/dL (6.4-8.2)
[2018-03-10 10:10] LABS: Alkaline Phosphatase 103 U/L (45-117); Aspartate Aminotransferase 67 U/L (15-37)
[2018-03-10 10:23] LABS: Eosinophils 7 % (0-4); Lymphocytes 30 % (9-44); Monocytes 7 % (0-8); Platelet Estimate Normal (Normal); Platelet Morphology Normal (Normal); Tallied Nucleated RBC 2 (0-0)
[2018-03-10 10:24] LABS: Sickle Cells 2+
== END 2018-03-10 10:55 | disposition home or self-care (01) ==
LOC: PHED 00:45 → PHEDA 05:43 → PHICU 06:20 → PH3 03-09 03:59
PROVIDERS: ADMIT Hospitalist; ATTEND Hospitalist